=== PATIENT | female | born 1955 | race Caucasian/White ===

== ENCOUNTER → 2016-12-25 | Outpatient (CLI) | payer MEDICARE ==
--- NOTE | 2016-12-25 15:13 | CT ---
EXAMINATION TYPE: CT brain wo con DATE OF EXAM: 12/25/2016 COMPARISON: Previous study dated 10/26/2011. HISTORY: Pt states of confusion and dizziness after fall with head injury x2 days ago. CT DLP: 1017.3 mGycm Automated exposure control for dose reduction was used. FINDINGS: Central structures are midline. There is no evidence of hydrocephalus. No acute focal lesion, mass ef fect or midline shift is seen. I do not see evidence of intracranial blood. Visualized portions of the paranasal sinuses and mastoids are clear. No depressed skull fracture is s een. IMPRESSION: NO ACUTE INTRACRANIAL ABNORMALITY.
== END | disposition home or self-care (01) ==
LOC: RADCTMAIN 14:48
PROVIDERS: ATTEND Family Medicine
DX: S06.0X0A Concussion without loss of consciousness, initial encounter (principal)
CPT/HCPCS: 70450

== ENCOUNTER 2017-01-21 15:25 | Inpatient (IN) | payer BC, MEDICARE ==
[2017-01-21] MEDS ORDERED: SODIUM CHLORIDE 0.9% 1,000 ML IV STA (16:28)
[2017-01-21] MEDS ORDERED: SODIUM CHLORIDE 0.9% 500 ML IV STA (16:28)
--- NOTE | 2017-01-21 16:36 | ED ---
General Adult HPI - General Chief complaint: Dizziness Stated complaint: Weakness. Sent by Dr Nguyen Seen by Provider: 01/21/17 16:27 Source: patient, RN notes reviewed, old records reviewed Mode of arrival: wheelchair Limitations: no limitations - History of Present Illness Initial comments: This is a 61-year-old female EF multiple nonspecific complaints. Multiple episodes of syncope, amnesia, not acting appropriately. Weakness. Chills, sweats. Patient has multiple medical issues, no recent medication changes. Patient has been evaluated including brain CT secondary to a fall earlier last week. Patient symptoms are persistent. She states symptoms for about 2 weeks. She does have multiple medical issues again, states sometimes she does have occult infections, but has denied any fever at home. No bowel or bladder issues. No nausea vomiting. No bowel pain or chest pain. No shortness of breath - Related Data Home Medications Medication Instructions Recorded Confirmed Fluticasone/Salmeterol [Advair 1 puff INHALATION RT-BID 02/14/14 01/21/17 250-50 Diskus] Gabapentin [Neurontin] 300 mg PO QID 02/14/14 01/21/17 Lovastatin [Mevacor] 20 mg PO DAILY 02/14/14 01/21/17 Temazepam [Restoril] 30 mg PO HS 02/14/14 01/21/17 Topiramate [Topamax] 50 mg PO BID 02/14/14 01/21/17 fentaNYL 100MCG/HR PATCH 1 applic TRANSDERM Q72H 02/14/14 01/21/17 [Duragesic 100MCG/HR] rOPINIRole HCL [Requip] 1 mg PO HS 02/14/14 01/21/17 traMADol HCl [Ultram] 100 mg PO TID 02/14/14 01/21/17 traZODone HCL [traZODone] 150 mg PO HS 02/14/14 01/21/17 Albuterol Nebulized [Ventolin 2.5 mg INHALATION RT-QID PRN 10/26/15 01/21/17 Nebulized] Ipratropium Nebulized [Atrovent 0.5 mg INHALATION RT-QID PRN 10/26/15 01/21/17 Nebulized] Thyroid,Pork [Nature-Throid] 195 mg PO DAILY 10/26/15 01/21/17 Diclofenac Sodium [Voltaren] 75 mg PO BID 11/05/15 01/21/17 predniSONE [Prednisone] 5 mg PO DAILY 11/05/15 01/21/17 Levothyroxine Sodium [Synthroid] 200 mcg PO DAILY 02/08/16 01/21/17 Alendronate Sodium [Fosamax] 70 mg PO WE 01/21/17 01/21/17 Baclofen 10 mg PO QID PRN 01/21/17 01/21/17 Docusate [Colace] 100 mg PO DAILY 01/21/17 01/21/17 Doxepin HCl [SINEquan] 100 mg PO DAILY 01/21/17 01/21/17 EPINEPHrine [Epipen 2-Bert] 0.3 mg IM ONCE PRN 01/21/17 01/21/17 Furosemide [Lasix] 40 mg PO DAILY 01/21/17 01/21/17 Hydrocortisone [Cortef] 2.5 mg PO HS 01/21/17 01/21/17 Hydrocortisone [Cortef] 7.5 mg PO QAM 01/21/17 01/21/17 Lidocaine 5% Oint [Xylocaine 5% 1 applic TOPICAL QID PRN 01/21/17 01/21/17 Oint] Linaclotide [Linzess] 72 mcg PO DAILY 01/21/17 01/21/17 Meclizine [Antivert] 12.5 mg PO BID 01/21/17 01/21/17 Mirtazapine [Remeron] 30 mg PO HS 01/21/17 01/21/17 Montelukast [Singulair] 10 mg PO HS 01/21/17 01/21/17 Mupirocin 2% Oint [Bactroban 2% 1 applic TOPICAL TID 01/21/17 01/21/17 Oint] Omeprazole 40 mg PO DAILY 01/21/17 01/21/17 Ondansetron [Zofran ODT] 8 mg PO Q8HR PRN 01/21/17 01/21/17 Sucralfate [Carafate] 1 gm PO ACHS 01/21/17 01/21/17 Thyroid,Pork [[place] Thyroid] 30 mg PO DAILY 01/21/17 01/21/17 Thyroid,Pork [[place] Thyroid] 120 mg PO DAILY 01/21/17 01/21/17 Verapamil HCl [Verapamil ER] 180 mg PO Q12H 01/21/17 01/21/17 valACYclovir HCL [Valtrex] 1,000 mg PO TID 01/21/17 01/21/17 Allergies Allergy/AdvReac Type Severity Reaction Status Date / Time aspirin Allergy Rash/Hives Verified 01/21/17 16:20 bee pollen Allergy Anaphylaxis Verified 01/21/17 16:20 cefdinir [From Omnicef] Allergy Anaphylaxis Verified 01/21/17 16:20 clarithromycin [From Biaxin] Allergy Anaphylaxis Verified 01/21/17 16:20 ibuprofen [From Advil] Allergy Anaphylaxis Verified 01/21/17 16:20 Iodinated Contrast Media - Allergy SWELLING Verified 01/21/17 16:20 Oral and OF THROAT [Iodinated Contrast Media - IV Dye] omalizumab [From Xolair] Allergy Anaphylaxis Verified 01/21/17 16:20 Penicillins Allergy Dyspnea Verified 01/21/17 16:20 prochlorperazine edisylate Allergy Rash/Hives Verified 01/21/17 16:20 [From Compazine] prochlorperazine maleate Allergy Rash/Hives Verified 01/21/17 16:20 [From Compazine] codeine AdvReac Nausea Verified 01/21/17 16:20 iodine AdvReac Anaphylaxis Verified 01/21/17 16:20 shellfish derived AdvReac Anaphylaxis Verified 01/21/17 16:20 Review of Systems ROS Statement: Those systems with pertinent positive or pertinent negative responses have been documented in the HPI. ROS Other: All systems not noted in ROS Statement are negative. 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, adrenal insufficiency, hiatal hernia, basal cell carcinoma of the skin, uses cane , uses oxygen continous at 3L, irregular bowel movements, hx endocarditis,osteoporosis, hx fx spine agammaglobulinemia History of Any Multi-Drug Resistant Organisms: None Reported Past Surgical History: Adenoidectomy, Appendectomy, Back Surgery, Breast Surgery , Cholecystectomy, Hysterectomy, Joint Replacement, Tonsillectomy Additional Past Surgical History / Comment(s): left knee replacement, left knee arthroscopy, breast biopsy-rt, mino breast reduction, hemorrhoidectomy Past Anesthesia/Blood Transfusion Reactions: Family History of Problems w/ Anesthesia, Motion Sickness Additional Past Anesthesia/Blood Transfusion Reaction / Comment(s): "brother was awake during whole surgery" Past Psychological History: No Psychological Hx Reported Smoking Status: Never smoker Past Alcohol Use History: None Reported Past Drug Use History: None Reported - Past Family History Mother Family Medical History: Cancer Father Family Medical History: Cancer General Exam Limitations: no limitations General appearance: alert, in no apparent distress Head exam: Present: atraumatic, normocephalic, normal inspection Eye exam: Present: normal appearance, PERRL, EOMI. Absent: scleral icterus, conjunctival injection, periorbital swelling ENT exam: Present: normal exam, mucous membranes moist Neck exam: Present: normal inspection. Absent: tenderness, meningismus, lymphadenopathy Respiratory exam: Present: normal lung sounds bilaterally. Absent: respiratory distress, wheezes, rales, rhonchi, stridor Cardiovascular Exam: Present: regular rate, normal rhythm, normal heart sounds. Absent: systolic murmur, diastolic murmur, rubs, gallop, clicks GI/Abdominal exam: Present: soft, normal bowel sounds. Absent: distended, tenderness, guarding, rebound, rigid Extremities exam: Present: normal inspection, full ROM, normal capillary refill. Absent: tenderness, pedal edema, joint swelling, calf tenderness Back exam: Present: normal inspection Neurological exam: Present: alert, oriented X3, CN II-XII intact Psychiatric exam: Present: normal affect, normal mood Skin exam: Present: warm, dry, intact, normal color. Absent: rash Course Vital Signs 01/21/17 01/21/17 01/21/17 15:29 17:23 18:28 Temperature 96.9 F L Pulse Rate 63 55 L 55 L Respiratory 18 17 17 Rate Blood Pressure 119/79 120/77 102/69 O2 Sat by Pulse 96 96 97 Oximetry 01/21/17 18:51 Temperature Pulse Rate 58 L Respiratory 17 Rate Blood Pressure 107/64 O2 Sat by Pulse 97 Oximetry - Reevaluation(s) Reevaluation #1: 01/21/17 19:10 Patient states she still feels weak, CT reviewed from outpatient which was negative EKG Findings - EKG Comments: EKG Findings:: EKG shows sinus bradycardia rate of 36, GA 182, QRS 100, QTC 424 Medical Decision Making - Medical Decision Making 61 female here with multiple episodes of syncope, weakness, fever and chills. Diaphoresis, patient with positive urinary tract infection we'll await blood cultures we'll start IV antibiotics limit for rehydration and further evaluation - Lab Data Result diagrams: 01/21/17 16:05 01/21/17 16:05 Lab Results 01/21/17 01/21/17 01/21/17 Range/Units 16:05 16:05 16:05 WBC 5.0 (3.8-10.6) k/uL RBC 4.22 (3.80-5.40) m/uL Hgb 13.5 (11.4-16.0) gm/dL Hct 39.8 (34.0-46.0) % MCV 94.4 (80.0-100.0) fL MCH 32.1 (25.0-35.0) pg MCHC 34.0 (31.0-37.0) g/dL RDW 16.4 H (11.5-15.5) % Plt Count 165 (150-450) k/uL Neutrophils % 55 % Lymphocytes % 35 % Monocytes % 5 % Eosinophils % 2 % Basophils % 1 % Neutrophils # 2.8 (1.3-7.7) k/uL Lymphocytes # 1.8 (1.0-4.8) k/uL Monocytes # 0.3 (0-1.0) k/uL Eosinophils # 0.1 (0-0.7) k/uL Basophils # 0.0 (0-0.2) k/uL Anisocytosis Slight PT (9.0-12.0) sec INR (<1.1) APTT (22.0-30.0) sec Sodium 144 (137-145) mmol/L Potassium 4.2 (3.5-5.1) mmol/L Chloride 104 (98-107) mmol/L Carbon Dioxide 29 (22-30) mmol/L Anion Gap 11 mmol/L BUN 13 (7-17) mg/dL Creatinine 0.91 (0.52-1.04) mg/dL Est GFR (MDRD) Af Amer >60 (>60 ml/min/1.73 sqM) Est GFR (MDRD) Non-Af >60 (>60 ml/min/1.73 sqM) Glucose 89 (74-99) mg/dL Plasma Lactic Acid Carlos (0.7-2.0) mmol/L Calcium 9.1 (8.4-10.2) mg/dL Phosphorus 3.1 (2.5-4.5) mg/dL Magnesium 2.3 (1.6-2.3) mg/dL Total Bilirubin 0.7 (0.2-1.3) mg/dL AST 54 H (14-36) U/L ALT 48 (9-52) U/L Alkaline Phosphatase 97 (38-126) U/L Total Creatine Kinase 244 H (30-135) U/L CK-MB (CK-2) 3.0 H* (0.0-2.4) ng/mL CK-MB (CK-2) Rel Index 1.2 Troponin I <0.012 (0.000-0.034) ng/mL Total Protein 8.1 (6.3-8.2) g/dL Albumin 4.5 (3.5-5.0) g/dL Urine Color Urine Appearance (Clear) Urine pH (5.0-8.0) Ur Specific [place] (1.001-1.035) Urine Protein (Negative) Urine Glucose (UA) (Negative) Urine Ketones (Negative) Urine Blood (Negative) Urine Nitrite (Negative) Urine Bilirubin (Negative) Urine Urobilinogen (<2.0) mg/dL Ur Leukocyte Esterase (Negative) Urine RBC (0-5) /hpf Urine WBC (0-5) /hpf Ur Squamous Epith Cells (0-4) /hpf Amorphous Sediment (None) /hpf Urine Bacteria (None) /hpf Urine Mucus (None) /hpf 01/21/17 01/21/17 01/21/17 Range/Units 16:05 17:07 17:15 WBC (3.8-10.6) k/uL RBC (3.80-5.40) m/uL Hgb (11.4-16.0) gm/dL Hct (34.0-46.0) % MCV (80.0-100.0) fL MCH (25.0-35.0) pg MCHC (31.0-37.0) g/dL RDW (11.5-15.5) % Plt Count (150-450) k/uL Neutrophils % % Lymphocytes % % Monocytes % % Eosinophils % % Basophils % % Neutrophils # (1.3-7.7) k/uL Lymphocytes # (1.0-4.8) k/uL Monocytes # (0-1.0) k/uL Eosinophils # (0-0.7) k/uL Basophils # (0-0.2) k/uL Anisocytosis PT 10.8 (9.0-12.0) sec INR 1.1 (<1.1) APTT 23.9 (22.0-30.0) sec Sodium (137-145) mmol/L Potassium (3.5-5.1) mmol/L Chloride (98-107) mmol/L Carbon Dioxide (22-30) mmol/L Anion Gap mmol/L BUN (7-17) mg/dL Creatinine (0.52-1.04) mg/dL Est GFR (MDRD) Af Amer (>60 ml/min/1.73 sqM) Est GFR (MDRD) Non-Af (>60 ml/min/1.73 sqM) Glucose (74-99) mg/dL Plasma Lactic Acid Carlos 0.8 (0.7-2.0) mmol/L Calcium (8.4-10.2) mg/dL Phosphorus (2.5-4.5) mg/dL Magnesium (1.6-2.3) mg/dL Total Bilirubin (0.2-1.3) mg/dL AST (14-36) U/L ALT (9-52) U/L Alkaline Phosphatase (38-126) U/L Total Creatine Kinase (30-135) U/L CK-MB (CK-2) (0.0-2.4) ng/mL CK-MB (CK-2) Rel Index Troponin I (0.000-0.034) ng/mL Total Protein (6.3-8.2) g/dL Albumin (3.5-5.0) g/dL Urine Color Yellow Urine Appearance Cloudy H (Clear) Urine pH 8.0 (5.0-8.0) Ur Specific [place] 1.018 (1.001-1.035) Urine Protein Trace H (Negative) Urine Glucose (UA) Negative (Negative) Urine Ketones Negative (Negative) Urine Blood Negative (Negative) Urine Nitrite Negative (Negative) Urine Bilirubin Negative (Negative) Urine Urobilinogen 2.0 (<2.0) mg/dL Ur Leukocyte Esterase Moderate H (Negative) Urine RBC 3 (0-5) /hpf Urine WBC 32 H (0-5) /hpf Ur Squamous Epith Cells 1 (0-4) /hpf Amorphous Sediment Occasional H (None) /hpf Urine Bacteria Moderate H (None) /hpf Urine Mucus Rare H (None) /hpf Disposition Clinical Impression: Dehydration, Weakness, Syncope, UTI (urinary tract infection) Disposition: ADMITTED IP TO THIS HOSP Condition: Fair Referrals: Maikel Johnson MD [Primary Care Provider] - 1-2 days
[2017-01-21 16:44] LABS: Anisocytosis Slight; Basophils % (A) 1 %; CH 31.9; CHCM 34.1; Eosinophils # (A) 0.1 k/uL (0-0.7); Eosinophils % (A) 2 %; HCT 39.8 % (34.0-46.0); HDW 3.04; HGB 13.5 gm/dL (11.4-16.0); Luc % (Auto) 2; Lymphocytes # (A) 1.8 k/uL (1.0-4.8); Lymphocytes % (A) 35 %; MCH 32.1 pg (25.0-35.0); MCV 94.4 fL (80.0-100.0); Mean Platelet Volume 7.9; Monocytes # (A) 0.3 k/uL (0-1.0); Monocytes % (A) 5 %; Neutrophils # (A) 2.8 k/uL (1.3-7.7); Neutrophils % (A) 55 %; RBC 4.22 m/uL (3.80-5.40); RDW 16.4 % (11.5-15.5); WBC (Perox) 4.72
[2017-01-21 16:53] LABS: ALT 48 U/L (9-52); AST 54 U/L (14-36); Alkaline Phosphatase 97 U/L (38-126); Anion Gap 11 mmol/L; Blood Urea Nitrogen 13 mg/dL (7-17); Calcium 9.1 mg/dL (8.4-10.2); Carbon Dioxide 29 mmol/L (22-30); Chloride 104 mmol/L (98-107); Glucose 89 mg/dL (74-99); Magnesium 2.3 mg/dL (1.6-2.3); Non-African American GFR(MDRD) >60 (>60 ml/min/1.73 sqM); Phosphorous 3.1 mg/dL (2.5-4.5); Potassium 4.2 mmol/L (3.5-5.1); Sodium 144 mmol/L (137-145); Total Bilirubin 0.7 mg/dL (0.2-1.3); Total Protein 8.1 g/dL (6.3-8.2)
[2017-01-21 16:58] LABS: INR 1.1 (<1.1)
[2017-01-21 16:59] LABS: Partial Thromboplastin Time 23.9 sec (22.0-30.0); Prothrombin Time 10.8 sec (9.0-12.0)
[2017-01-21 17:05] LABS: Creatine Kinase 244 U/L (30-135)
--- NOTE | 2017-01-21 17:06 | XR ---
EXAMINATION TYPE: XR chest 2V DATE OF EXAM: 01/21/2017 COMPARISON: 11/14/2015 HISTORY: Chest pain TECHNIQUE: Frontal and lateral views of the chest are obtained. FINDINGS: There is poor inspiration with elevation of the diaphragms and blunting of costophrenic an gles. There is no gross heart failure. There are chest leads. IMPRESSION: There is significant elevation of the diaphragms consistent with atelectasis and small p leural effusion that is improved compared to last exam.
[2017-01-21 17:16] LABS: Troponin I <0.012 ng/mL (0.000-0.034)
[2017-01-21 17:43] LABS: Amorphous Sediment,Urine Occasional /hpf; Appearance,Urine Cloudy (Clear); Bacteria,Urine Moderate /hpf; Bilirubin,Urine Negative (Negative); Glucose,Urine (UA) Negative (Negative); Ketones,Urine Negative (Negative); Leukocyte Esterase,Urine Moderate (Negative); Mucus,Urine Rare /hpf; Nitrite,Urine Negative (Negative); Particle Count 7650; Protein,Urine Trace (Negative); RBC,Urine 3 /hpf (0-5); Specific Gravity,Urine 1.018 (1.001-1.035); Squamous Epithelial Cell,Urine 1 /hpf (0-4); UA Billing (MACRO vs. MICRO) MICRO; WBC,Urine 32 /hpf (0-5)
[2017-01-21] MEDS ORDERED: LEVOFLOXACIN 750MG-D5W PMX 750 MG in DEXTROSE/WATER 1 150ML.BAG IVPB STA (18:03)
[2017-01-21] MEDS ORDERED: traMADol 50 MG TAB PO STA ×2 (18:50→18:59)
[2017-01-21 20:45] VITALS: RESP 16
[2017-01-21] MEDS ORDERED: TEMAZEPAM 30 MG CAP PO SCH (22:45)
[2017-01-22 04:28] LABS: Anisocytosis Slight; Basophils % (A) 1 %; CH 31.7; CHCM 33.1; Eosinophils # (A) 0.1 k/uL (0-0.7); Eosinophils % (A) 2 %; HCT 32.9 % (34.0-46.0); HDW 2.98; HGB 10.9 gm/dL (11.4-16.0); Luc # (Auto) 0.12; Luc % (Auto) 3; Lymphocytes # (A) 1.6 k/uL (1.0-4.8); Lymphocytes % (A) 41 %; MCH 31.9 pg (25.0-35.0); MCHC 33.1 g/dL (31.0-37.0); MCV 96.5 fL (80.0-100.0); Mean Platelet Volume 8.2; Monocytes # (A) 0.2 k/uL (0-1.0); Monocytes % (A) 5 %; Neutrophils # (A) 1.9 k/uL (1.3-7.7); Neutrophils % (A) 49 %; RBC 3.41 m/uL (3.80-5.40); RDW 16.1 % (11.5-15.5); WBC 3.9 k/uL (3.8-10.6); WBC (Perox) 4.03
[2017-01-22 04:50] LABS: ALT 41 U/L (9-52); AST 39 U/L (14-36); Alkaline Phosphatase 72 U/L (38-126); Anion Gap 7 mmol/L; Blood Urea Nitrogen 11 mg/dL (7-17); Calcium 8.1 mg/dL (8.4-10.2); Carbon Dioxide 25 mmol/L (22-30); Chloride 109 mmol/L (98-107); Glucose 73 mg/dL (74-99); Magnesium 2.2 mg/dL (1.6-2.3); Non-African American GFR(MDRD) >60 (>60 ml/min/1.73 sqM); Phosphorous 3.1 mg/dL (2.5-4.5); Potassium 3.7 mmol/L (3.5-5.1); Sodium 141 mmol/L (137-145); Total Bilirubin 0.4 mg/dL (0.2-1.3); Total Protein 6.1 g/dL (6.3-8.2)
[2017-01-22] MEDS: traMADol 50 MG TAB PO PRN ×2 (05:24→11:33)
[2017-01-22 07:57] VITALS: BP 105/66; PULSE 55; TEMP 97.7
[2017-01-22] MEDS ORDERED: ENOXAPARIN 40 MG/0.4 ML SYRINGE SQ SCH (09:00)
[2017-01-22] MEDS ORDERED: LEVOFLOXACIN 750MG-D5W PMX 750 MG in DEXTROSE/WATER 1 150ML.BAG IVPB SCH (18:00)
--- NOTE | 2017-01-25 09:27 | HP ---
HISTORY AND PHYSICAL/DISCHARGE SUMMARY: This dictation is both H&P and discharge summary The patient is a 69 year old female came in with complaints of fever, chills and night sweats and generalized weakness all of which is completely resolved at this time after she was started on ( ). The patient denied any dysuria. The patient denied any increased urinary frequency. Her urine did look abnormal with increased WBC count positive for leukocyte esterase. The patient was empirically treated for urinary tract infection although I do not know that the patient has UTI. I cannot say the patient does not have UTI and the patient symptoms did improve with Levofloxacin because of which I am discharging her on Levofloxacin. Unfortunately the patient has borderline increased QT in spite of which I do not have any other choice because the patient appears to be allergic to Cephalosporin as it is only borderline increase in QT I will go ahead and discharge her on five days of Levofloxacin. The patient apparently had syncopal episode many days ago after which the patient remained asymptomatic. The patient was on Verapamil for migraine control 180 mg twice a day and the patient's blood pressure is on the low normal side. The patient's blood pressure is always like that per the patient. The patient is also on Lasix without any dehydration, does take 40 mg of Lasix for peripheral edema. I recommended her a couple of changes. I asked her to take the Lasix on alternative days only for symptomatic peripheral edema and regarding the patient does have some mild sinus bradycardia which may have contributed to her syncopal episode as it is many days ago. The patient is symptom free, that episode, I will go ahead and discharge the patient. The patient can get an outpatient echocardiogram. We will also decrease the verapamil to 120 twice a day and the patient's migraine recurrence occurred years ago because of which I will go ahead and cut down the dose of Verapamil and see how she does. The patient will be discharged with empiric antibiotics of Levofloxacin for five days as the patient has symptomatic improvement. Although I do not have concrete evidence that the patient has urinary tract infection. Home medications include: 1. Fluticasone. 2. Gabapentin. 3. Lovastatin. 4. Temazepam. 5. Topamax. 6. Fentanyl patch. 7. Ropinirole. 8. Tramadol. 9. Trazodone. 10. Albuterol. 11. Ipratropium. 12. [place] thyroid. 13. Diclofenac. 14. The patient was instructed that she cannot take two NSAIDs at the same time. 15. Prednisone. 16. Levothyroxine. 17. Olendranate. I obtained a TSH. The patient appears to have some hypopituitarism or multiple ( ) I am not sure what ( ). Although the patient is on supplementation with hydrocortisone, levothyroxine. The patient is on Baclofen, Olendranate, Lidocaine, Linzess, Meclizine, Mirtazapine, Montelukast, ( ), Omeprazole, Ondansetron, ( ), Verapamil, Valacyclovir. The patient is on multiple complex medications. 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 SOCIAL HISTORY: Denied any smoking, alcohol abuse or any drug abuse. FAMILY HISTORY: Significant for mother with cancer, father with cancer. PHYSICAL EXAMINATION: Temperature 96.9, pulse 65, respiratory 17, blood pressure 102/69. Saturation at 95% on room air. ( ). The patient is afebrile. LABORATORY DATA: CBC, BMP are abnormal for low hemoglobin of 10.9 without any acute GI bleed. The patient's hemoglobin dropped from 13.5 because of ( ) effect. I will obtain a TSH and free T4. May not be available before discharge. ASSESSMENT AND PLAN: 1. Nonspecific symptoms of chills without any obvious fever, possibility of urinary tract infection. The patient will be discharged on five days empiric therapy. The patient urinalysis is not significant. Occasional squamous epithelial cells. 2. Panhypopituitarism. We will obtain TSH level. The patient is on high doses of levothyroxine. Depending on TSH and T4, we may need to up or down titrate her levothyroxine or [place] thyroid. The patient is on huge doses which is apparently concerning. 3. Panhypopituitarism. Home medications will be continued. 4. Restless leg syndrome and fibromyalgia, continue her home medications. The patient cannot take two NSAIDs counselling of which was provided to the patient. 5. Irritable bowel syndrome, continue with Linzess. 6. Hyperlipidemia, continue with Lovastatin. 7. Migraine, episode of syncope and hypotension issues, titration of medication that is Lasix and Verapamil as mentioned above. The patient has poly pharmacy which is concerning although as I do not know the patient very well, I am not changing any of her medications at this point in time. The patient will be asked to follow with Dr. Maikel Johnson as an outpatient. The patient's Levothyroxine may need to be titrated depending on the TSH which is not available at the time of discharge. This dictation is both H&P and discharge summary. MTDD
== END 2017-01-22 12:30 | disposition home or self-care (01) | DRG 690 ==
LOC: EC 15:25 → 5MS5E 19:08
PROVIDERS: ADMIT Hospitalist; ATTEND Hospitalist
DX: N39.0 Urinary tract infection, site not specified (principal); E23.0 Hypopituitarism; E86.0 Dehydration; G25.81 Restless legs syndrome; K58.9 Irritable bowel syndrome, unspecified; E78.5 Hyperlipidemia, unspecified; G43.909 Migraine, unspecified, not intractable, without status migrainosus; M79.7 Fibromyalgia; J44.9 Chronic obstructive pulmonary disease, unspecified; K44.9 Diaphragmatic hernia without obstruction or gangrene; K21.9 Gastro-esophageal reflux disease without esophagitis; G47.30 Sleep apnea, unspecified; Z90.49 Acquired absence of other specified parts of digestive tract; Z85.828 Personal history of other malignant neoplasm of skin; Z96.652 Presence of left artificial knee joint; Z79.52 Long term (current) use of systemic steroids; Z79.899 Other long term (current) drug therapy; Z88.8 Allergy status to other drugs, medicaments and biological substances; Z88.6 Allergy status to analgesic agent; Z88.1 Allergy status to other antibiotic agents; Z91.030 Bee allergy status; Z91.041 Radiographic dye allergy status; Z88.5 Allergy status to narcotic agent; Z88.0 Allergy status to penicillin; Z91.013 Allergy to seafood
CPT/HCPCS: 36415; 71020; 80053; 81001; 82550; 82553; 83605; 83735; 84100; 84439; 84443; 84484; 85025; 85610; 85730; 87040; 87086; 93005; 96361; 96365; 96366; 99285

== ENCOUNTER → 2017-07-14 | Outpatient (CLI) | payer MEDICARE ==
--- NOTE | 2017-07-14 13:21 | US ---
EXAMINATION TYPE: US venous doppler duplex LE RT DATE OF EXAM: 07/14/2017 12:40 PM COMPARISON: NONE CLINICAL HISTORY: R79.1 D Dimer above reference range. SIDE PERFORMED: right TECHNIQUE: The lower extremity deep venous system is examined utilizing real time linear array sonog germain with graded compression, doppler sonography and color-flow sonography. VESSELS IMAGED: External Iliac Vein (EIV) Common Femoral Vein Deep Femoral Vein Greater Saphenous Vein * Femoral Vein Popliteal Vein Small Saphenous Vein * Proximal Calf Veins (* superficial vessels) Grayscale, color doppler, spectral doppler imaging performed of the deep veins of the lower extremity . There is normal flow, compressibility, vascular waveforms. IMPRESSION: Right Leg: Negative for DVT
== END | disposition home or self-care (01) ==
LOC: RADUSWWP 12:06
PROVIDERS: ATTEND Family Medicine
DX: R79.1 Abnormal coagulation profile (principal)

== ENCOUNTER → 2018-02-05 | Outpatient (CLI) | payer BC ==
--- NOTE | 2018-02-05 16:11 | XR ---
EXAMINATION TYPE: XR lumbar spine 2 or 3V , 3 VIEWS DATE OF EXAM ORDERED: 02/05/2018 HISTORY: M54.5 low back pain. COMPARISON: Previous study dated 04/17/2007. FINDINGS: There has been a trans facet fusion on the right and L5-S1. There has been a previous vert ebroplasty at T12. The gallbladder is been removed. There has been a laminectomy at L4 and L5. There is a stable grade 2 spondylolisthesis of L5 5 ON S1. There is a degenerative grade 1 spondyloli sthesis of L4 and L5. This is progressed from previous. Alignment is otherwise maintained. The pedicl es are intact. IMPRESSION: 1. EXTENSIVE POSTSURGICAL CHANGE. 2. PROGRESSION OF A GRADE 1 SPONDYLOLISTHESIS OF L4 ON L5.
--- NOTE | 2018-02-05 16:12 | XR ---
EXAMINATION TYPE: XR sacrum coccyx , 3 VIEWS DATE OF EXAM ORDERED: 02/05/2018 HISTORY: M54.5 low back pain. COMPARISON: Previous study dated 05/31/2011. FINDINGS: There has been a previous trans facet fusion at L5-S1. No acute fracture or dislocation is seen. There are numerous phleboliths within the pelvis. IMPRESSION: NO ACUTE OSSEOUS LESION.
== END | disposition home or self-care (01) ==
LOC: RADXRMAIN 15:17
PROVIDERS: ATTEND Nurse Practitioner Adult Health
DX: M43.16 Spondylolisthesis, lumbar region (principal); Z98.890 Other specified postprocedural states
CPT/HCPCS: 72100; 72220

== ENCOUNTER → 2018-04-27 | Outpatient (CLI) | payer BC | END | disposition home or self-care (01) | LOC: LABWHC1 14:02 | PROVIDERS: ATTEND Allergy & Immunology | DX: D84.9 Immunodeficiency, unspecified (principal) | CPT/HCPCS: 36415; 82784 ==

== ENCOUNTER → 2018-06-16 | Outpatient (CLI) | payer BC ==
--- NOTE | 2018-06-16 13:05 | US ---
EXAMINATION TYPE: US abdomen limited DATE OF EXAM: 06/16/2018 COMPARISON: NONE CLINICAL HISTORY: 63-year-old female I73.9 Peripheral vascu dz,R94.5 Abn liver function. Abdominal pa in with abnormal labs TECHNIQUE: Multiple sonographic images of the right upper quadrant are obtained. FINDINGS: EXAM MEASUREMENTS: Liver Length: 15.5 cm Right Kidney: 7.9 x 4.6 x 4.7 cm Die Out Worker notes:Limited exam due to overlying bowel gas Pancreas: Only a small portion of the pancreatic neck and body are seen. Remainder suboptimally visua lized due to shadowing from bowel gas. Liver: Only small portions are visualized due to combination of bowel gas and rib shadowing. Gallbladder: Obscured by overlying bowel gas Evidence for sonographic Meyers's sign: neg CBD: Obscured by overlying bowel gas Right Kidney: Limited visualization due to overlying bowel gas . No obvious hydronephrosis. IMPRESSION: Very limited exam primarily due to extensive bowel gas shadowing. Gallbladder and bile duct are obscu red. Only small portions of the liver are visualized.
== END ==
LOC: RADUSWWP 08:30
PROVIDERS: ATTEND Family Medicine
DX: R94.5 Abnormal results of liver function studies (principal); I73.9 Peripheral vascular disease, unspecified
CPT/HCPCS: 76705; 93923

== ENCOUNTER → 2018-12-09 | Outpatient (CLI) | payer BC ==
--- NOTE | 2018-12-09 15:07 | CT ---
EXAMINATION TYPE: CT brain wo con DATE OF EXAM: 12/09/2018 COMPARISON: 12/25/2016 HISTORY: 63-year-old female Tremors, dizziness and syncopal episodes TECHNIQUE: Examination was done in axial plane without intravenous contrast. Coronal and sagittal r econstructions performed. CT DLP: 1085.4 mGycm Automated exposure control for dose reduction was used. FINDINGS: There is no evidence of acute intracranial hemorrhage, acute ischemic changes, mass, mass-effect, or extra-axial fluid collection. There is no effacement of cerebral sulci or basal subarachnoid cister ns. There is no hydrocephalus. There is no midline shift. Martins-white matter distinction is preserv ed. Partially empty sella. Scattered trace to mild mucosal thickening left maxillary sinus and ethmoid air cells. Mastoid air ce lls well pneumatized. Orbits and globes are intact. IMPRESSION: No acute intracranial abnormality seen.
== END | disposition home or self-care (01) ==
LOC: RADCTMAIN 13:15
PROVIDERS: ATTEND Nurse Practitioner Adult Health
DX: G25.2 Other specified forms of tremor (principal)
CPT/HCPCS: 70450

== ENCOUNTER → 2018-12-30 | Outpatient (CLI) | payer BC ==
--- NOTE | 2018-12-31 15:06 | MM ---
Reason for exam: screening (asymptomatic). Last mammogram was performed 3 years and 6 months ago. History: Patient is postmenopausal, has history of breast cancer at age 25, and history of other cancer. Family history of breast cancer in mother at age 66 and breast cancer in maternal grandmother. Reduction of the left breast. Reduction of the right breast. Excisional biopsy of the left breast. Excisional biopsy of the right breast. Lumpectomy of the right breast. Took estrogen for 6 months beginning at age 25. Took progesterone for 6 months beginning at age 25. Physical Findings: A clinical breast exam by your physician is recommended on an annual basis and results should be correlated with mammographic findings. MG 3D Screening Mammo W/Cad Bilateral CC and MLO view(s) were taken. Prior study comparison: July 13, 2015, bilateral MG screening mammo w CAD. February 09, 2012, CAD bilateral diagnostic mammogram. There are scattered fibroglandular densities. Benign appearing bilateral calcifications. No suspicious abnormality. Post surgical change bilaterally. No significant changes when compared with prior studies. ASSESSMENT: Benign, BI-RAD 2 RECOMMENDATION: Routine screening mammogram of both breasts in 1 year.
== END | disposition home or self-care (01) ==
LOC: RADMAMWWP 13:25
PROVIDERS: ATTEND Family Medicine
DX: Z12.31 Encounter for screening mammogram for malignant neoplasm of breast (principal)
CPT/HCPCS: 77063; 77067

== ENCOUNTER 2019-02-23 11:58 | Observation (INO) | payer BC ==
[2019-02-23] MEDS ORDERED: SODIUM CHLORIDE 0.9% 500 ML 500 ML IV STA (12:26)
[2019-02-23 13:13] LABS: Anisocytosis Slight; Basophils # (A) 0.1 k/uL (0-0.2); Basophils % (A) 1 %; Eosinophils # (A) 0.3 k/uL (0-0.7); Eosinophils % (A) 3 %; HCT 37.9 % (34.0-46.0); HGB 12.5 gm/dL (11.4-16.0); Lymphocytes # (A) 2.4 k/uL (1.0-4.8); Lymphocytes % (A) 24 %; MCH 31.2 pg (25.0-35.0); MCV 94.5 fL (80.0-100.0); Mean Platelet Volume 8.1; Monocytes # (A) 0.6 k/uL (0-1.0); Monocytes % (A) 6 %; Neutrophils # (A) 6.2 k/uL (1.3-7.7); Neutrophils % (A) 63 %; Platelet Count 156 k/uL (150-450); RBC 4.01 m/uL (3.80-5.40); RDW 16.1 % (11.5-15.5); WBC 9.9 k/uL (3.8-10.6)
[2019-02-23 13:20] LABS: Albumin 4.4 g/dL (3.5-5.0); Calcium 8.7 mg/dL (8.4-10.2); Potassium 4.1 mmol/L (3.5-5.1); Total Bilirubin 0.3 mg/dL (0.2-1.3); Total Protein 7.9 g/dL (6.3-8.2)
--- NOTE | 2019-02-23 13:30 | CT ---
EXAMINATION TYPE: CT brain wo con DATE OF EXAM: 02/23/2019 COMPARISON: 12/09/2018 CT brain HISTORY: Head pain. Poor historian. CT DLP: 1137.4 mGycm Automated exposure control for dose reduction was used. TECHNIQUE: CT scan of the head is performed without contrast. FINDINGS: There is no acute intracranial hemorrhage, mass effect, or midline shift identified. Minimal ventricu lar and sulcal prominence throughout relates to mild degree age-related atrophy. The globes are intac t. Mild mucosal thickening is present of the ethmoid and left maxillary paranasal sinuses. Remaining paranasal sinuses and mastoid air cells are well aerated. Partially empty sella turcica is redemonstr ated. IMPRESSION: No acute intracranial hemorrhage, mass effect, or midline shift is seen. Mild ethmoid and left maxill jazmín paranasal sinus disease as seen on the prior.
--- NOTE | 2019-02-23 14:56 | ED ---
Syncope HPI - General Chief Complaint: Syncope Stated Complaint: Syncope, fall hit head Time Seen by Provider: 02/23/19 12:12 Source: patient Mode of arrival: wheelchair Limitations: no limitations - History of Present Illness Initial Comments: Patient is a 64-year-old female presenting to the emergency room with complaints of syncope x 1 week. Patient states symptoms started after she returned home from a cruise. Patient states she has fallen multiple times, most recently yesterday hitting her head. Patient admits to still having a headache from the fall. Patient states she has been feeling dizzy, on balance, and needing help walking around her house. Patient has multiple comorbidities including COPD on 3L O2, Adrenal insufficiency, thyroid disease, hyperlipidemia, sleep apnea, tremors. Patient denies fever, chills, chest pain, nausea, vomiting, abdominal pain, urinary complaints. Patient is a poor historian. No other complaints at this time. - Related Data Home Medications Medication Instructions Recorded Confirmed Lovastatin [Mevacor] 20 mg PO DAILY 02/14/14 02/23/19 rOPINIRole HCL [Requip] 2 mg PO HS 02/14/14 02/23/19 traMADol HCl [Ultram] 50 mg PO QID 02/14/14 02/23/19 Albuterol Nebulized [Ventolin 2.5 mg INHALATION RT-QID PRN 10/26/15 02/23/19 Nebulized] Diclofenac Sodium [Voltaren] 75 mg PO BID 11/05/15 02/23/19 predniSONE [Prednisone] 5 mg PO DAILY 11/05/15 02/23/19 Baclofen 10 mg PO QID PRN 01/21/17 02/23/19 EPINEPHrine [Epipen 2-Bert] 0.3 mg IM ONCE PRN 01/21/17 02/23/19 Linaclotide [Linzess] 72 mcg PO DAILY 01/21/17 02/23/19 Mirtazapine [Remeron] 30 mg PO HS 01/21/17 02/23/19 Montelukast [Singulair] 10 mg PO HS 01/21/17 02/23/19 Omeprazole 40 mg PO DAILY 01/21/17 02/23/19 Ondansetron [Zofran ODT] 8 mg PO Q8HR PRN 01/21/17 02/23/19 Ammonium Lactate Lotion 1 applic TOPICAL BID 02/23/19 02/23/19 [Lac-Hydrin 12% Lotion] Budesonide-Formot 160-4.5 Mcg 2 puff INHALATION RT-BID 02/23/19 02/23/19 [Symbicort 160-4.5 Mcg Inhaler] Buprenorphine HCl [Belbuca] 150 mcg BUCCAL Q12H 02/23/19 02/23/19 DULoxetine HCL [Cymbalta] 30 mg PO HS 02/23/19 02/23/19 Denosumab [Prolia] 60 mg SQ Q180D 02/23/19 02/23/19 Famotidine [Pepcid] 40 mg PO BID 02/23/19 02/23/19 Furosemide [Lasix] 40 mg PO DAILY 02/23/19 02/23/19 Gabapentin 1,200 mg PO BID 02/23/19 02/23/19 Levothyroxine Sodium [Synthroid] 300 mcg PO DAILY 02/23/19 02/23/19 Propranolol [Inderal] 10 mg PO TID 02/23/19 02/23/19 Topiramate [Topamax] 25 mg PO BID 02/23/19 02/23/19 Topiramate [Topamax] 100 mg PO BID 02/23/19 02/23/19 Allergies Allergy/AdvReac Type Severity Reaction Status Date / Time aspirin Allergy Rash/Hives Verified 02/23/19 13:23 bee pollen Allergy Anaphylaxis Verified 02/23/19 13:23 cefdinir [From Omnicef] Allergy Anaphylaxis Verified 02/23/19 13:23 clarithromycin [From Biaxin] Allergy Anaphylaxis Verified 02/23/19 13:23 ibuprofen [From Advil] Allergy Anaphylaxis Verified 02/23/19 13:23 Iodinated Contrast- Oral and Allergy SWELLING Verified 02/23/19 13:23 IV Dye OF THROAT [Iodinated Contrast Media - IV Dye] iodine Allergy Anaphylaxis Verified 02/23/19 13:23 omalizumab [From Xolair] Allergy Anaphylaxis Verified 02/23/19 13:23 Penicillins Allergy Dyspnea Verified 02/23/19 13:23 prochlorperazine edisylate Allergy Rash/Hives Verified 02/23/19 13:23 [From Compazine] prochlorperazine maleate Allergy Rash/Hives Verified 02/23/19 13:23 [From Compazine] shellfish derived Allergy Anaphylaxis Verified 02/23/19 13:23 codeine AdvReac Nausea Verified 02/23/19 13:23 Review of Systems ROS Statement: Those systems with pertinent positive or pertinent negative responses have been documented in the HPI. ROS Other: All systems not noted in ROS Statement are negative. 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, adrenal insufficiency, hiatal hernia, basal cell carcinoma of the skin, uses cane , uses oxygen continous at 3L, irregular bowel movements, hx endocarditis,osteoporosis, hx fx spine agammaglobulinemia History of Any Multi-Drug Resistant Organisms: None Reported Past Surgical History: Adenoidectomy, Appendectomy, Back Surgery, Breast Surgery, Cholecystectomy, Hysterectomy, Joint Replacement, Tonsillectomy Additional Past Surgical History / Comment(s): left knee replacement, left knee arthroscopy, breast biopsy-rt, mino breast reduction, hemorrhoidectomy Past Anesthesia/Blood Transfusion Reactions: Family History of Problems w/ Anesthesia, Motion Sickness Additional Past Anesthesia/Blood Transfusion Reaction / Comment(s): "brother was awake during whole surgery" Past Psychological History: No Psychological Hx Reported Smoking Status: Never smoker Past Alcohol Use History: None Reported Past Drug Use History: None Reported - Past Family History Mother Family Medical History: Cancer Father Family Medical History: Cancer General Exam - General Exam Comments Initial Comments: GENERAL: Well-appearing, well-nourished and in no acute distress, but appears uncomfortable. HEAD: Atraumatic, normocephalic. Tender to palpation of the posterior right side. EYES: Pupils equal round and reactive to light, extraocular movements intact, sclera anicteric, conjunctiva are normal. ENT: TMs normal, nares patent, oropharynx clear without exudates. Moist mucous membranes. NECK: Normal range of motion, supple without lymphadenopathy or JVD. LUNGS: Breath sounds clear to auscultation bilaterally and equal. Scattered wheezes throughout lung plascencia. HEART: Regular rate and rhythm without murmurs, rubs or gallops. ABDOMEN: Soft, nontender, normoactive bowel sounds. No guarding, no rebound. N o masses appreciated. : Deferred EXTREMITIES: Normal range of motion, no pitting or edema. No clubbing or cyanosis. NEUROLOGICAL: Cranial nerves II through XII grossly intact. Normal speech. Ashley haines has chronic tremors. PSYCH: Normal mood, normal affect. SKIN: Warm, Dry, normal turgor, no rashes or lesions noted. Limitations: no limitations Course Vital Signs 02/23/19 02/23/19 12:01 15:10 Temperature 97.9 F Pulse Rate 65 75 Respiratory 16 22 Rate Blood Pressure 126/81 116/81 O2 Sat by Pulse 92 L 94 L Oximetry Medical Decision Making - Medical Decision Making Patient is a 64-year-old female complaining of syncope and dizziness times one week. Patient states symptoms started after she returned from a cruise. Patient states she took a fall yesterday and hit her head and has been having a headache since. Patient is a poor historian. Patient has multiple medical issues including COPD on 3L O2, Adrenal insufficiency, thyroid disease, h yperlipidemia, sleep apnea, tremors. Patient's exam is within normal limits except for tremors. Patient's CBC is within normal limits. D-dimer is 0.52. Troponin is within normal limits. Patient's BUN/creatinine are slightly elevated. Patient's UA was pending at this time. Case discussed with Dr. Urban who agrees patient to be admitted. Patient was accepted by Dr. Castro. Away from the patient, patient's brother and patient's daughter states patient is constantly requesting pain meds from her PCP and creating reasons to request pain medication. They state she is very dramatic in nature and often changes her demeanor when there is medical personnel present in the room. - Lab Data Result diagrams: 02/23/19 13:00 02/23/19 13:00 Lab Results 02/23/19 02/23/19 02/23/19 Range/Units 13:00 13:00 13:00 WBC 9.9 (3.8-10.6) k/uL RBC 4.01 (3.80-5.40) m/uL Hgb 12.5 (11.4-16.0) gm/dL Hct 37.9 (34.0-46.0) % MCV 94.5 (80.0-100.0) fL MCH 31.2 (25.0-35.0) pg MCHC 33.0 (31.0-37.0) g/dL RDW 16.1 H (11.5-15.5) % Plt Count 156 (150-450) k/uL Neutrophils % 63 % Lymphocytes % 24 % Monocytes % 6 % Eosinophils % 3 % Basophils % 1 % Neutrophils # 6.2 (1.3-7.7) k/uL Lymphocytes # 2.4 (1.0-4.8) k/uL Monocytes # 0.6 (0-1.0) k/uL Eosinophils # 0.3 (0-0.7) k/uL Basophils # 0.1 (0-0.2) k/uL Anisocytosis Slight D-Dimer 0.52 (<0.60) mg/L FEU Sodium 144 (137-145) mmol/L Potassium 4.1 (3.5-5.1) mmol/L Chloride 100 (98-107) mmol/L Carbon Dioxide 36 H (22-30) mmol/L Anion Gap 8 mmol/L BUN 26 H (7-17) mg/dL Creatinine 1.36 H (0.52-1.04) mg/dL Est GFR (CKD-EPI)AfAm 48 (>60 ml/min/1.73 sqM) Est GFR (CKD-EPI)NonAf 41 (>60 ml/min/1.73 sqM) Glucose 119 H (74-99) mg/dL Calcium 8.7 (8.4-10.2) mg/dL Total Bilirubin 0.3 (0.2-1.3) mg/dL AST 53 H (14-36) U/L ALT 41 (9-52) U/L Alkaline Phosphatase 54 (38-126) U/L Troponin I (0.000-0.034) ng/mL Total Protein 7.9 (6.3-8.2) g/dL Albumin 4.4 (3.5-5.0) g/dL Urine Color Urine Appearance (Clear) Urine pH (5.0-8.0) Ur Specific [place] (1.001-1.035) Urine Protein (Negative) Urine Glucose (UA) (Negative) Urine Ketones (Negative) Urine Blood (Negative) Urine Nitrite (Negative) Urine Bilirubin (Negative) Urine Urobilinogen (<2.0) mg/dL Ur Leukocyte Esterase (Negative) Urine RBC (0-5) /hpf Urine WBC (0-5) /hpf Ur Squamous Epith Cells (0-4) /hpf Urine Bacteria (None) /hpf Urine Opiates Screen (NotDetected) Ur Oxycodone Screen (NotDetected) Urine Methadone Screen (NotDetected) Ur Propoxyphene Screen (NotDetected) Ur Barbiturates Screen (NotDetected) U Tricyclic Antidepress (NotDetected) Ur Phencyclidine Scrn (NotDetected) Ur Amphetamines Screen (NotDetected) U Methamphetamines Scrn (NotDetected) U Benzodiazepines Scrn (NotDetected) Urine Cocaine Screen (NotDetected) U Marijuana (THC) Screen (NotDetected) 02/23/19 02/23/19 Range/Units 13:00 16:20 WBC (3.8-10.6) k/uL RBC (3.80-5.40) m/uL Hgb (11.4-16.0) gm/dL Hct (34.0-46.0) % MCV (80.0-100.0) fL MCH (25.0-35.0) pg MCHC (31.0-37.0) g/dL RDW (11.5-15.5) % Plt Count (150-450) k/uL Neutrophils % % Lymphocytes % % Monocytes % % Eosinophils % % Basophils % % Neutrophils # (1.3-7.7) k/uL Lymphocytes # (1.0-4.8) k/uL Monocytes # (0-1.0) k/uL Eosinophils # (0-0.7) k/uL Basophils # (0-0.2) k/uL Anisocytosis D-Dimer (<0.60) mg/L FEU Sodium (137-145) mmol/L Potassium (3.5-5.1) mmol/L Chloride (98-107) mmol/L Carbon Dioxide (22-30) mmol/L Anion Gap mmol/L BUN (7-17) mg/dL Creatinine (0.52-1.04) mg/dL Est GFR (CKD-EPI)AfAm (>60 ml/min/1.73 sqM) Est GFR (CKD-EPI)NonAf (>60 ml/min/1.73 sqM) Glucose (74-99) mg/dL Calcium (8.4-10.2) mg/dL Total Bilirubin (0.2-1.3) mg/dL AST (14-36) U/L ALT (9-52) U/L Alkaline Phosphatase (38-126) U/L Troponin I <0.012 (0.000-0.034) ng/mL Total Protein (6.3-8.2) g/dL Albumin (3.5-5.0) g/dL Urine Color Light Yellow Urine Appearance Clear (Clear) Urine pH 7.5 (5.0-8.0) Ur Specific [place] 1.014 (1.001-1.035) Urine Protein Trace H (Negative) Urine Glucose (UA) Negative (Negative) Urine Ketones Negative (Negative) Urine Blood Negative (Negative) Urine Nitrite Positive H (Negative) Urine Bilirubin Negative (Negative) Urine Urobilinogen <2.0 (<2.0) mg/dL Ur Leukocyte Esterase Small H (Negative) Urine RBC <1 (0-5) /hpf Urine WBC 10 H (0-5) /hpf Ur Squamous Epith Cells <1 (0-4) /hpf Urine Bacteria Few H (None) /hpf Urine Opiates Screen Not Detected (NotDetected) Ur Oxycodone Screen Not Detected (NotDetected) Urine Methadone Screen Not Detected (NotDetected) Ur Propoxyphene Screen Not Detected (NotDetected) Ur Barbiturates Screen Not Detected (NotDetected) U Tricyclic Antidepress Not Detected (NotDetected) Ur Phencyclidine Scrn Not Detected (NotDetected) Ur Amphetamines Screen Not Detected (NotDetected) U Methamphetamines Scrn Not Detected (NotDetected) U Benzodiazepines Scrn Not Detected (NotDetected) Urine Cocaine Screen Not Detected (NotDetected) U Marijuana (THC) Screen Not Detected (NotDetected) Disposition Clinical Impression: Syncope Disposition: ADMITTED IP TO THIS [facility] Condition: Stable Is patient prescribed a controlled substance at d/c from ED?: No Referrals: Maikel Johnson MD [Primary Care Provider] - 1-2 days Decision Date: 02/23/19 Decision Time: 15:01
[2019-02-23] MEDS ORDERED: ONDANSETRON 4 MG/2 ML VIAL IVP PRN (15:15)
[2019-02-23] MEDS ORDERED: SODIUM CHLORIDE 0.9% 1,000 ML IV SCH (15:15)
[2019-02-23] MEDS ORDERED: NALOXONE 0.4 MG/ML 1 ML VIAL IV PRN (15:15)
[2019-02-23] MEDS ORDERED: oxyCODONE-APAP 5-325MG 1 EACH TAB PO PRN (15:15)
[2019-02-23] MEDS ORDERED: traMADol 50 MG TAB PO PRN (15:15)
[2019-02-23] MEDS ORDERED: ACETAMINOPHEN TAB 325 MG TAB PO PRN (15:15)
--- NOTE | 2019-02-23 15:40 | XR ---
EXAMINATION TYPE: XR chest 2V DATE OF EXAM: 02/23/2019 COMPARISON: 07/15/2017 HISTORY: 64-year-old female with syncope, shortness of breath TECHNIQUE: AP and lateral views FINDINGS: Very low lung volumes crowding the vascular markings. Bibasilar opacities are present. The heart liudmila ins are obscured by the elevated hemidiaphragms. Very limited lateral view due to large patient body habitus and low lung volumes. Vertebroplasty change near the thoracolumbar junction. IMPRESSION: Suboptimal study due to severe hypoventilatory changes. The upper lungs appear clear.
[2019-02-23 16:38] LABS: Appearance,Urine Clear (Clear); Bacteria,Urine Few /hpf; Bilirubin,Urine Negative (Negative); Blood,Urine Negative (Negative); Color,Urine Light Yellow; Glucose,Urine (UA) Negative (Negative); Ketones,Urine Negative (Negative); Leukocyte Esterase,Urine Small (Negative); Nitrite,Urine Positive (Negative); PH, Urine 7.5 (5.0-8.0); Protein,Urine Trace (Negative); RBC,Urine <1 /hpf (0-5); Specific Gravity,Urine 1.014 (1.001-1.035); Squamous Epithelial Cell,Urine <1 /hpf (0-4); Urobilinogen,Urine <2.0 mg/dL (<2.0)
[2019-02-23 16:47] LABS: Amphetamine Screen,Urine Not Detected (NotDetected); Barbiturate Screen,Urine Not Detected (NotDetected); Benzodiazepines Screen,Urine Not Detected (NotDetected); Cocaine Screen,Urine Not Detected (NotDetected); Methadone Screen, Urine Not Detected (NotDetected); Opiate Screen,Urine Not Detected (NotDetected); Oxycodone Screen, Urine Not Detected (NotDetected); Phencyclidine Screen,Urine Not Detected (NotDetected); Tricyclic Antidepressant,Urine Not Detected (NotDetected); Urn Cannabinoid Scrn Not Detected (NotDetected)
[2019-02-23 18:14] VITALS: BMI 20.3
[2019-02-23 18:34] LABS: Glucose,Whole Blood 84 mg/dL (75-99)
--- NOTE | 2019-02-23 20:46 | P.CNNES ---
History of Present Illness Consult date: 02/23/19 Requesting physician: Prashant Castro Reason for Consult: Syncope Chief complaint: Passing out History of Present Illness: This is a 64 RH female h/o adrenal insufficiency, COPD, thyroid disease, HL, JAREN and tremors who presented to our facility c/o recurrent syncope x 1 week. Symptoms started after patient returned home from a cruise. She fell multiple times as a result of her syncope, and the day prior to admission she did striek her head. She c/o dizziness, off balance and need help to walk around her house. ER documentation indicates that patient has pain med-seeking behavior, that she is constantly requesting pain meds from her PCP and creating reasons to request pain medication. Patient's brother and daughter state that she is very dramatic in nature and often changes her demeanor when there is medical personnel in the room. Shortly after she arrived on the floor, she became unresponsive even to sternal rub, so rapid response was called. When everyone was in the room, she suddenly opened her eyes and became responsive without intervention. Patient sees Dr. Krueger who has her on Singulex for "debilitating migraine." Patient states the AED has worked quite well for the above. Review of Systems I have performed a 14-point organ ROS with patient; pertinents are as per HPI. Past Medical History Past Medical History: Asthma, Cancer, COPD, GERD/Reflux, Hyperlipidemia, Sleep Apnea/CPAP/BIPAP, Thyroid Disorder Additional Past Medical History / Comment(s): Chronic bilateral hemidiaphr agmatic elevation/weakness/paralysis, adrenal insufficiency, hiatal hernia, basal cell carcinoma of the skin, uses cane , uses oxygen continous at 3L, irregular bowel movements, hx endocarditis,osteoporosis, hx fx spine agammaglobulinemia History of Any Multi-Drug Resistant Organisms: None Reported Past Surgical History: Adenoidectomy, Appendectomy, Back Surgery, Breast Surgery, Cholecystectomy, Hysterectomy, Joint Replacement, Tonsillectomy Additional Past Surgical History / Comment(s): left knee replacement, left knee arthroscopy, breast biopsy-rt, mino breast reduction, hemorrhoidectomy Past Anesthesia/Blood Transfusion Reactions: Family History of Problems w/ Anesthesia, Motion Sickness Additional Past Anesthesia/Blood Transfusion Reaction / Comment(s): "brother was awake during whole surgery" Past Psychological History: No Psychological Hx Reported Smoking Status: Never smoker Past Alcohol Use History: None Reported Past Drug Use History: None Reported - Past Family History Mother Family Medical History: Cancer Father Family Medical History: Cancer Medications and Allergies Home Medications Medication Instructions Recorded Confirmed Type Lovastatin [Mevacor] 20 mg PO DAILY 02/14/14 02/23/19 History rOPINIRole HCL [Requip] 2 mg PO HS 02/14/14 02/23/19 History traMADol HCl [Ultram] 50 mg PO QID 02/14/14 02/23/19 History Albuterol Nebulized [Ventolin 2.5 mg INHALATION RT-QID PRN 10/26/15 02/23/19 History Nebulized] Diclofenac Sodium [Voltaren] 75 mg PO BID 11/05/15 02/23/19 History predniSONE [Prednisone] 5 mg PO DAILY 11/05/15 02/23/19 History Baclofen 10 mg PO QID PRN 01/21/17 02/23/19 History EPINEPHrine [Epipen 2-Bert] 0.3 mg IM ONCE PRN 01/21/17 02/23/19 History Linaclotide [Linzess] 72 mcg PO DAILY 01/21/17 02/23/19 History Mirtazapine [Remeron] 30 mg PO HS 01/21/17 02/23/19 History Montelukast [Singulair] 10 mg PO HS 01/21/17 02/23/19 History Omeprazole 40 mg PO DAILY 01/21/17 02/23/19 History Ondansetron [Zofran ODT] 8 mg PO Q8HR PRN 01/21/17 02/23/19 History Ammonium Lactate Lotion 1 applic TOPICAL BID 02/23/19 02/23/19 History [Lac-Hydrin 12% Lotion] Budesonide-Formot 160-4.5 Mcg 2 puff INHALATION RT-BID 02/23/19 02/23/19 History [Symbicort 160-4.5 Mcg Inhaler] Buprenorphine HCl [Belbuca] 150 mcg BUCCAL Q12H 02/23/19 02/23/19 History DULoxetine HCL [Cymbalta] 30 mg PO HS 02/23/19 02/23/19 History Denosumab [Prolia] 60 mg SQ Q180D 02/23/19 02/23/19 History Famotidine [Pepcid] 40 mg PO BID 02/23/19 02/23/19 History Furosemide [Lasix] 40 mg PO DAILY 02/23/19 02/23/19 History Gabapentin 1,200 mg PO BID 02/23/19 02/23/19 History Levothyroxine Sodium [Synthroid] 300 mcg PO DAILY 02/23/19 02/23/19 History Propranolol [Inderal] 10 mg PO TID 02/23/19 02/23/19 History Topiramate [Topamax] 25 mg PO BID 02/23/19 02/23/19 History Topiramate [Topamax] 100 mg PO BID 02/23/19 02/23/19 History Allergies Allergy/AdvReac Type Severity Reaction Status Date / Time aspirin Allergy Rash/Hives Verified 02/23/19 13:23 bee pollen Allergy Anaphylaxis Verified 02/23/19 13:23 cefdinir [From Omnicef] Allergy Anaphylaxis Verified 02/23/19 13:23 clarithromycin [From Biaxin] Allergy Anaphylaxis Verified 02/23/19 13:23 ibuprofen [From Advil] Allergy Anaphylaxis Verified 02/23/19 13:23 Iodinated Contrast- Oral and Allergy SWELLING Verified 02/23/19 13:23 IV Dye OF THROAT [Iodinated Contrast Media - IV Dye] iodine Allergy Anaphylaxis Verified 02/23/19 13:23 omalizumab [From Xolair] Allergy Anaphylaxis Verified 02/23/19 13:23 Penicillins Allergy Dyspnea Verified 02/23/19 13:23 prochlorperazine edisylate Allergy Rash/Hives Verified 02/23/19 13:23 [From Compazine] prochlorperazine maleate Allergy Rash/Hives Verified 02/23/19 13:23 [From Compazine] shellfish derived Allergy Anaphylaxis Verified 02/23/19 13:23 codeine AdvReac Nausea Verified 02/23/19 13:23 Physical Examination - Vital Signs Vital Signs: Vital Signs Temp Pulse Pulse Resp BP BP Pulse Ox 02/23/19 18:00 16 02/23/19 16:45 98.1 F 67 16 116/77 98 02/23/19 16:26 115/73 02/23/19 15:10 75 22 116/81 94 L 02/23/19 12:01 97.9 F 65 16 126/81 92 L Intake and Output 02/23/19 02/23/19 02/23/19 06:59 14:59 22:59 Other: Weight 58.967 kg Gen NAD Pleasant and cooperative HEENT NCAT Sclera without icterus O/P clear Neck Supple No carotid bruit Cor RRR no m/r/g Lungs CTAB Abd Soft NTND +BS Ext Warm to touch No edema Neuro MS A+Ox4 Normal fluency Able to follow all commands CN PERRL VFF no APD EOMI no nystagmus or MOY No facial asymmetry Masseter's symmetric Hearing intact to normal voice bilaterally Speech slow but not dysarthric She does have a voice tremor Equal elevation of palate Tongue midline Sym shrug and SCM bilaterally Motor Normal bulk/tone No pronator or leg drift Head titubation Strength 5/5 sym throughout Sens Intact to LT x4 No neglect or extinction Coord She has pass-pointing on command but is able to grab onto my hand quite accurately on observation DTRs 2+/4 sym throughout Toes downgoing bilaterally No clonus at achilles Gait Deferred NIHSS 0 Results - Laboratory Findings CBC and BMP: 02/23/19 13:00 02/23/19 13:00 Abnormal Lab Findings: Abnormal Labs 02/23/19 02/23/19 02/23/19 13:00 13:00 16:20 RDW 16.1 H Carbon Dioxide 36 H BUN 26 H Creatinine 1.36 H Glucose 119 H AST 53 H Urine Protein Trace H Urine Nitrite Positive H Ur Leukocyte Esterase Small H Urine WBC 10 H Urine Bacteria Few H - Diagnostic Findings Additional findings: CT Head wo cont 02/23/19. No ICH. Nil acute. I have reviewed neuroimages myself. Assessment and Plan Assessment: Dizziness/syncope- etiology unclear Functional/non-physiologic exam Head tremor Plan: -From neuro standpoint, will obtain MRI brain wo johnny to r/o small posterior circulation ischemic infarct -Carotid duplex -EEG -Morning cortisol given h/o adrenal insufficiency -Other medical work-up for syncope deferred to primary team -d/w patient/RN in detail. All questions answered. Thank you for this consultation. Please call with ?. Time with Patient: Greater than 30 (Time spent in direct patient care, greater than 50% of which was spent in [id number] counseling and coordination of care: 70 minutes)
[2019-02-23] MEDS ORDERED: ONDANSETRON ODT 8 MG TAB.RAPDIS PO PRN (21:56)
[2019-02-23] MEDS ORDERED: ALBUTEROL NEBULIZED 2.5 MG/3 ML INHALATION PRN (21:56)
[2019-02-23] MEDS ORDERED: NON-FORMULARY DRUG (Diclofenac Sodium 75 MG) PO SCH (22:00)
[2019-02-23] MEDS ORDERED: GABAPENTIN 300 MG CAP PO SCH (22:00)
[2019-02-23] MEDS ORDERED: ONDANSETRON ODT 4 MG TAB PO PRN (22:02)
--- NOTE | 2019-02-23 22:13 | P.HPIM ---
History of Present Illness H&P Date: 02/23/19 Chief Complaint: Recurrent syncope History of presenting complaint: This is a 64-year-old patient who follows a Dr. Maikel Johnson. Patient states that she came back from the cruise about 6 days ago. Since then she been having episodes of passing out. She's had a few episodes. She goes down suddenly. There is no chest pain no palpitation. Patient at baseline uses a cane because of chronic back pain. Patient's daughter had called the nurse Suze would inform me that since patient's 10 months ago, the patient's had been giving a lot of pain medications. Since then she is guarded Dr. Johnson's office several times to us for more pain medications. Denies any fever and chills. Appetite is okay. Patient sometimes or tremors. Sometimes of the head and the body. No obvious seizure activity was reported. Review of systems: GEN.: Tired EYES: None HEENT: None NECK: None RESPIRATORY: None CARDIOVASCULAR: None GASTROINTESTINAL: None GENITOURINARY: None MUSCULOSKELETAL: Chronic low back pain LYMPHATICS: None HEMATOLOGICAL: None PSYCHIATRY: None NEUROLOGICAL: As above, with nonspecific type tremors of the limbs and head Past medical history: Asthma, COPD, GERD, hyperlipidemia, obstructive sleep apnea, hypothyroid, chronic bilateral hemidiaphragmatic paralysis, irritable insufficiency, hiatal hernia, basal cell carcinoma, home oxygen 3 L, and hepatitis, osteoporosis, fracture of the spine, 8, blood anemia Social history: Does not smoke or drink alcohol. Is a Physical examination: VITAL SIGNS: 98, 68, 16, 103/68, 98% on 3 L GENERAL: Slim built, laying in bed somewhat uncomfortable. EYES: Pupils equal. Conjunctiva normal. HEENT: External appearance of nose and ears normal, oral cavity grossly normal. NECK: JVD not raised; masses not palpable. HEART: First and second heart sounds are normal; no edema. LUNGS: Respiratory rate normal; decreased breath sounds. ABDOMEN: Soft, nontender, liver spleen not palpable, no masses palpable. PSYCH: Awake, but tired appearing, able to answer questionsl. NEUROLOGICAL: Cranial nerves grossly intact; no facial asymmetry, power and sensation grossly intact, some tremor symptoms of the head and the arm. LYMPHATICS: No lymph nodes palpable in the axilla and neck MUSCULOSKELETAL: Wasting of some muscles loss of subcutaneous fat INVESTIGATIONS, reviewed in the clinical context: White count 9.9 hemoglobin 12.5 platelets 156 potassium 4.1 bun 26 creatinine 1.36 Urine drug screen negative Computed tomography scan of the brain unremarkable Assessment: -This is a patient presenting with recurrent episodes of syncope. This could be combination of different things. It may be noted that patient is in renal failure. Patient is on a rather hefty dose of Neurontin.'s patient the setting of renal failure this could be rather toxic. This could explain patient b ecoming lethargic having tremors. -Renal failure at this point unknown effects acute or chronic. Will need further workup -Hypothyroidism. Patient again a rather hefty dose of Synthroid. Need to check for over replacement -Moderate persistent asthma -GERD -Hyperlipidemia -Chronic bilateral hemidiaphragmatic paralysis -Hiatal hernia -Chronic hypoxic respiratory failure on home oxygen 3 L -Chronic low back pain Plan: Patient be put on IV fluids. We'll stop renal offensive medications including NSAIDs. We will do routine ultrasound. We'll check patient's thyroid function. We'll cut back her gabapentin to 300 mg twice a day starting in the morning. We will also cut back on the dose of baclofen. Neurology has been consulted. We'll also stop patient's diclofenac fall precautions are in place. 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, adrenal insufficiency, hiatal hernia, basal cell carcinoma of the skin, uses cane , uses oxygen continous at 3L, irregular bowel movements, hx endocarditis,osteoporosis, hx fx spine agammaglobulinemia History of Any Multi-Drug Resistant Organisms: None Reported Past Surgical History: Adenoidectomy, Appendectomy, Back Surgery, Breast Surgery, Cholecystectomy, Hysterectomy, Joint Replacement, Tonsillectomy Additional Past Surgical History / Comment(s): left knee replacement, left knee arthroscopy, breast biopsy-rt, mino breast reduction, hemorrhoidectomy Past Anesthesia/Blood Transfusion Reactions: Family History of Problems w/ Anesthesia, Motion Sickness Additional Past Anesthesia/Blood Transfusion Reaction / Comment(s): "brother was awake during whole surgery" Past Psychological History: No Psychological Hx Reported Smoking Status: Never smoker Past Alcohol Use History: None Reported Past Drug Use History: None Reported - Past Family History Mother Family Medical History: Cancer Father Family Medical History: Cancer Medications and Allergies Home Medications Medication Instructions Recorded Confirmed Type Lovastatin [Mevacor] 20 mg PO DAILY 02/14/14 02/23/19 History rOPINIRole HCL [Requip] 2 mg PO HS 02/14/14 02/23/19 History traMADol HCl [Ultram] 50 mg PO QID 02/14/14 02/23/19 History Albuterol Nebulized [Ventolin 2.5 mg INHALATION RT-QID PRN 10/26/15 02/23/19 History Nebulized] Diclofenac Sodium [Voltaren] 75 mg PO BID 11/05/15 02/23/19 History predniSONE [Prednisone] 5 mg PO DAILY 11/05/15 02/23/19 History Baclofen 10 mg PO QID PRN 01/21/17 02/23/19 History EPINEPHrine [Epipen 2-Bert] 0.3 mg IM ONCE PRN 01/21/17 02/23/19 History Linaclotide [Linzess] 72 mcg PO DAILY 01/21/17 02/23/19 History Mirtazapine [Remeron] 30 mg PO HS 01/21/17 02/23/19 History Montelukast [Singulair] 10 mg PO HS 01/21/17 02/23/19 History Omeprazole 40 mg PO DAILY 01/21/17 02/23/19 History Ondansetron [Zofran ODT] 8 mg PO Q8HR PRN 01/21/17 02/23/19 History Ammonium Lactate Lotion 1 applic TOPICAL BID 02/23/19 02/23/19 History [Lac-Hydrin 12% Lotion] Budesonide-Formot 160-4.5 Mcg 2 puff INHALATION RT-BID 02/23/19 02/23/19 History [Symbicort 160-4.5 Mcg Inhaler] Buprenorphine HCl [Belbuca] 150 mcg BUCCAL Q12H 02/23/19 02/23/19 History DULoxetine HCL [Cymbalta] 30 mg PO HS 02/23/19 02/23/19 History Denosumab [Prolia] 60 mg SQ Q180D 02/23/19 02/23/19 History Famotidine [Pepcid] 40 mg PO BID 02/23/19 02/23/19 History Furosemide [Lasix] 40 mg PO DAILY 02/23/19 02/23/19 History Gabapentin 1,200 mg PO BID 02/23/19 02/23/19 History Levothyroxine Sodium [Synthroid] 300 mcg PO DAILY 02/23/19 02/23/19 History Propranolol [Inderal] 10 mg PO TID 02/23/19 02/23/19 History Topiramate [Topamax] 25 mg PO BID 02/23/19 02/23/19 History Topiramate [Topamax] 100 mg PO BID 02/23/19 02/23/19 History Allergies Allergy/AdvReac Type Severity Reaction Status Date / Time aspirin Allergy Rash/Hives Verified 02/23/19 13:23 bee pollen Allergy Anaphylaxis Verified 02/23/19 13:23 cefdinir [From Omnicef] Allergy Anaphylaxis Verified 02/23/19 13:23 clarithromycin [From Biaxin] Allergy Anaphylaxis Verified 02/23/19 13:23 ibuprofen [From Advil] Allergy Anaphylaxis Verified 02/23/19 13:23 Iodinated Contrast- Oral and Allergy SWELLING Verified 02/23/19 13:23 IV Dye OF THROAT [Iodinated Contrast Media - IV Dye] iodine Allergy Anaphylaxis Verified 02/23/19 13:23 omalizumab [From Xolair] Allergy Anaphylaxis Verified 02/23/19 13:23 Penicillins Allergy Dyspnea Verified 02/23/19 13:23 prochlorperazine edisylate Allergy Rash/Hives Verified 02/23/19 13:23 [From Compazine] prochlorperazine maleate Allergy Rash/Hives Verified 02/23/19 13:23 [From Compazine] shellfish derived Allergy Anaphylaxis Verified 02/23/19 13:23 codeine AdvReac Nausea Verified 02/23/19 13:23 Physical Exam Vitals: Vital Signs Temp Pulse Pulse Resp BP BP Pulse Ox 02/23/19 21:24 98.0 F 68 16 103/68 98 02/23/19 18:00 16 02/23/19 16:45 98.1 F 67 16 116/77 98 02/23/19 16:26 115/73 02/23/19 15:10 75 22 116/81 94 L 02/23/19 12:01 97.9 F 65 16 126/81 92 L Intake and Output 02/23/19 02/23/19 02/23/19 06:59 14:59 22:59 Other: Weight 58.967 kg Results CBC & Chem 7: 02/23/19 13:00 02/23/19 13:00 Labs: Abnormal Lab Results - Last 24 Hours (Table) 02/23/19 02/23/19 02/23/19 Range/Units 13:00 13:00 16:20 RDW 16.1 H (11.5-15.5) % Carbon Dioxide 36 H (22-30) mmol/L BUN 26 H (7-17) mg/dL Creatinine 1.36 H (0.52-1.04) mg/dL Glucose 119 H (74-99) mg/dL AST 53 H (14-36) U/L Urine Protein Trace H (Negative) Urine Nitrite Positive H (Negative) Ur Leukocyte Esterase Small H (Negative) Urine WBC 10 H (0-5) /hpf Urine Bacteria Few H (None) /hpf Thrombosis Risk Factor Assmnt - Choose All That Apply Any of the Below Risk Factors Present?: Yes Each Factor Represents 1 point: Age 41-60 years Other Risk Factors: Yes Each Risk Factor Represents 2 Points: Age 61-74 years Other congenital or acquired thrombophilia - If yes, enter type in comment: No Thrombosis Risk Factor Assessment Total Risk Factor Score: 3 Thrombosis Risk Factor Assessment Level: Moderate Risk
[2019-02-23] MEDS: traMADol 50 MG TAB PO SCH (22:35)
[2019-02-23] MEDS: PROPRANOLOL 10 MG TAB PO SCH (22:36)
[2019-02-23] MEDS: ENOXAPARIN 40 MG/0.4 ML SYRINGE SQ SCH (22:36)
[2019-02-23] MEDS: FAMOTIDINE 20 MG TAB PO SCH (22:36)
[2019-02-23] MEDS: TOPIRAMATE 100 MG TAB PO SCH (22:36)
[2019-02-23] MEDS: TOPIRAMATE 25 MG TAB PO SCH (22:37)
[2019-02-23] MEDS: MIRTAZAPINE 15 MG TAB PO SCH (22:37)
[2019-02-23] MEDS: DULoxetine HCL 30 MG CAPSULE.DR PO SCH (22:37)
[2019-02-23] MEDS: Buprenorphine Hcl [Belbuca] 150 MCG BUCCAL SCH (22:40)
[2019-02-23] MEDS: LACTATED RINGERS 1,000 ML IV SCH (22:40)
[2019-02-24] MEDS: LACTATED RINGERS 1,000 ML IV SCH ×3 (06:13→19:34)
[2019-02-24] MEDS: SYMBICORT 160-4.5 MCG INHALER INHALATION SCH ×2 (07:13→20:07)
[2019-02-24] MEDS: ATORVASTATIN 10 MG TAB PO SCH (07:49)
[2019-02-24] MEDS: GABAPENTIN 300 MG CAP PO SCH ×2 (07:50→21:51)
[2019-02-24] MEDS: traMADol 50 MG TAB PO SCH ×4 (07:50→21:53)
[2019-02-24] MEDS: TOPIRAMATE 100 MG TAB PO SCH ×2 (07:51→21:51)
[2019-02-24] MEDS: PANTOPRAZOLE 40 MG TABLET PO SCH (07:51)
[2019-02-24] MEDS: FAMOTIDINE 20 MG TAB PO SCH ×2 (07:51→21:51)
[2019-02-24] MEDS: AMMONIUM LACTATE 12% LOTION 225 GM BTL TOPICAL SCH ×2 (07:51→21:52)
[2019-02-24] MEDS: predniSONE 5 MG TAB PO SCH (07:52)
[2019-02-24] MEDS: TOPIRAMATE 25 MG TAB PO SCH ×2 (07:52→21:52)
[2019-02-24] MEDS: PROPRANOLOL 10 MG TAB PO SCH ×3 (07:52→21:51)
--- NOTE | 2019-02-24 08:34 | US ---
EXAMINATION TYPE: US carotid duplex BILAT DATE OF EXAM: 02/24/2019 COMPARISON: US 2011 CLINICAL HISTORY: Dizziness. Dizziness, syncope EXAM MEASUREMENTS: RIGHT: Peak Systolic Velocity (PSV) cm/sec ----- Right CCA: 50.6 ----- Right ICA: 58.8 ----- Right ECA: 44.9 ICA/CCA ratio: 1.2 RIGHT: End Diastole cm/sec ----- Right CCA: 15.3 ----- Right ICA: 20.1 ----- Right ECA: 4.4 LEFT: Peak Systolic Velocity (PSV) cm/sec ----- Left CCA: 56.1 ----- Left ICA: 72.8 ----- Left ECA: 45.7 ICA/CCA ratio: 1.3 LEFT: End Diastole cm/sec ----- Left CCA: 15.9 ----- Left ICA: 33.6 ----- Left ECA: 5.3 VERTEBRALS (direction of flow): Right Vertebral: Antegrade Left Vertebral: Antegrade Rhythm: Normal No elevated velocities, no significant stenosis. IMPRESSION: Mild degree of grayscale atheromatous plaquing with no sonographically evident hemodynam ically significant stenosis within either visualized carotid arterial system. Criteria for Assigning % of Stenosis / Diameter reduction (Estimation based on the indirect measurements of the internal carotid artery velocities (ICA PSV). 1. Normal (no stenosis)=ICA PSV < 125 cm/s: ratio < 2.0: ICA EDV<40 cm/s. 2. Less than 50% stenosis=ICA PSV < 125 cm/s: ratio < 2.0: ICA EDV<40 cm/s. 3. 50 to 69% stenosis=ICA PSV of 125 to 230 cm/s: ration 2.0 ? 4.0: ICA EDV 40-100 cm/s. 4. Greater than 70% stenosis to near occlusion= ICA PSV > 230 cm/s: ratio > 4.0: ICA EDV > 100 cm/s. 5. Near occlusion= ICA PSV velocities may be low or undetectable: variable ratio and ICA EDV. 6. Total occlusion=unable to detect flow.
[2019-02-24 09:50] LABS: T4, Free (Free Thyroxine) <0.07 ng/dL (0.78-2.19)
--- NOTE | 2019-02-24 11:20 | EEG ---
ELECTROENCEPHALOGRAM REPORT DATE OF TESTING: February 24, 2019 CLINICAL PROBLEM: Syncope/dizziness. EEG was requested to rule out epileptic activity. TYPE OF RECORDING: Bedside tracing using the 10-20 international electrode placement system. No sedation was given prior to the beginning of this recording. FINDINGS: The background tracing is seen with a symmetric alpha rhythm posteriorly with attenuation on eye opening and returns upon eye closure. There are scattered EMG artifacts that correspond to patient's facial movements/jaw clenching. There are no other electrographic correlates to these movements. Photic stimulation elicits a symmetric driving response. Hyperventilation is not performed in this recording. There is no definitive sleep architecture seen. There is no background asymmetry, ictal or interictal patterns appreciated. IMPRESSION: This is a normal awake electroencephalogram without background asymmetry or epileptiform patterns. The patient's facial movements/jaw clenching are seen only with EMG artifact without other electrographic correlates. Clinical correlation is advised. KATARINA / ROSAMARIAN: [id number] / HUGO
[2019-02-24] MEDS: Linaclotide [Linzess] 72 MCG PO SCH (12:41)
--- NOTE | 2019-02-24 13:07 | P.CRDCN ---
History of Present Illness History of present illness: This is a pleasant 64-year-old female past medical history significant for asthma, COPD, adrenal insufficency, dyslipidemia, hypothyroidism, diaphragmatic myopathy and mild-moderate aortic insufficiency. She follows with Dr. Henson in the office. We have been asked to see her in consultation secondary to dizziness/syncope. She states since Thursday she has passed out up to 40 times. She states these episodes occur while she is standing and exerting herself. She starts to feel lightheaded and then next thing she is on the floor. There has been positive LOC. No room spinning dizziness, chest pain, shortness of breath, nausea, vomiting, palpitations or diaphoresis. She is seen and examined laying flat in bed in no acute distress. She is quite tearful and concerned about her p ain medications being weaned down. She saw Dr. Henson in the office in June 2018 and was recommended she undergo extensive evaluation with an Endocronologist secondary to suspected primary and secondary hypothyroidism. She has not set this up yet. TSH on this admission is 75.9, free T4 less than 0.07 and cortisol 14. She is currently maintained on synthroid 300 mcg daily and states she is compliant. There was a question per the nursing staff regarding a possible arrhythmia. Telemetry tracings reviewed and reveal artifact with no acute arrhythmia. EKG reveals sinus mechanism, low voltage and non-specific T waves. Chest xray reveals elevated hemidiaphragm and bibasilar opacities. Laboratory data reviewed, cardiac enzymes negative 2, TSH 75.9, free T4 less than 0.07, cortisol 14, creatinine 1.36, sodium 144, potassium 4.1, d-dimer 0.52, WBC 9.9, hemoglobin 12.5 and platelets 156. Current daily cardiac medications include propanolol 10 mg 3 times a day which she takes for migraines, lovastatin 20 mg daily and Lasix 40 mg daily which she takes for lower extremity swelling. Most recent echocardiogram obtained in the office June 2018 reveals preserved LV systolic function with ejection fraction 55% and mild to moderate aortic regurgitation. At the time of my exam: CONSTITUTIONAL: Denies fever. Denies chills. EYES: Denies blurred vision. Denies vision changes. Denies eye pain. EARS, NOSE, MOUTH & THROAT: Denies headache. Denies sore throat. Denies ear pain. CARDIOVASCULAR: Denies chest pain. Denies shortness of breath. Denies orthopnea. Denies PND. Denies palpitations. RESPIRATORY: Denies cough. GASTROINTESTINAL: Denies abdominal pain. Denies diarrhea. Denies constipation. Denies nausea. Denies vomiting. MUSCULOSKELETAL: Denies myalgias. INTEGUMENTARY: Denies pruitis. Denies rash. NEUROLOGIC: Denies numbness. Denies tingling. Denies weakness. PSYCHIATRIC: Denies anxiety. Denies depression. ENDOCRINE: Denies fatigue. Denies weight change. Denies polydipsia. Denies polyurina. GENITOURINARY: Denies burning, hematuria or urgency with micturation. HEMATOLOGIC: Denies history of anemia. Denies bleeding. Blood pressure 106/56 heart rate 67 afebrile maintaining oxygen saturation on room air. Negative for orthostatic changes. GENERAL: This is a 64-year-old female in no apparent distress at the time of my examination. HEENT: Head is atraumatic, normocephalic. Pupils are equal, round. Sclerae anicteric. Conjunctivae are clear. Mucous membranes of the mouth are moist. Neck is supple. There is no jugular venous distention. No carotid bruit is heard. LUNGS: Clear to auscultation no wheezes, rales or rhonchi. No chest wall tenderness is noted on palpation or with deep breathing. HEART: Regular rate and rhythm without murmurs, rubs or gallops. S1 and S2 heard. ABDOMEN: Soft, nontender. Bowel sounds are heard. No organomegaly noted. EXTREMITIES: No evidence of peripheral edema and no calf tenderness noted. VASCULAR: Radial and dorsalis pedis pulses palpated, no evidence of clubbing. NEUROLOGIC: Patient is awake, alert and oriented x3. ASSESSMENT Syncope Hypothyroidism, profound Dyslipidemia COPD Gastroesophageal reflux disease PLAN Awaiting MRI brain, EEG and carotid duplex per neurology. Obtain 2-D echocardiogram and Doppler study to assess cardiac structure and function. Ongoing telemetry monitoring. Recommend extensive endocrinology and neurology evaluation. This has been discussed in detail with her primary care team. At this point there is no evidence to suggest cardiac etiology for syncopal spells. Thank you kindly for this consultation. Nurse Practitioner note has been reviewed, I agree with a documented findings an d plan of care. Patient was seen and examined. 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, adrenal insufficiency, hiatal hernia, basal cell carcinoma of the skin, uses cane , uses oxygen continous at 3L, irregular bowel movements, hx endocarditis,osteoporosis, hx fx spine agammaglobulinemia History of Any Multi-Drug Resistant Organisms: None Reported Past Surgical History: Adenoidectomy, Appendectomy, Back Surgery, Breast Surgery, Cholecystectomy, Hysterectomy, Joint Replacement, Tonsillectomy Additional Past Surgical History / Comment(s): left knee replacement, left knee arthroscopy, breast biopsy-rt, mino breast reduction, hemorrhoidectomy Past Anesthesia/Blood Transfusion Reactions: Family History of Problems w/ Ane sthesia, Motion Sickness Additional Past Anesthesia/Blood Transfusion Reaction / Comment(s): "brother was awake during whole surgery" Past Psychological History: No Psychological Hx Reported Smoking Status: Never smoker Past Alcohol Use History: None Reported Past Drug Use History: None Reported - Past Family History Mother Family Medical History: Cancer Father Family Medical History: Cancer Medications and Allergies Home Medications Medication Instructions Recorded Confirmed Type Lovastatin [Mevacor] 20 mg PO DAILY 02/14/14 02/23/19 History rOPINIRole HCL [Requip] 2 mg PO HS 02/14/14 02/23/19 History traMADol HCl [Ultram] 50 mg PO QID 02/14/14 02/23/19 History Albuterol Nebulized [Ventolin 2.5 mg INHALATION RT-QID PRN 10/26/15 02/23/19 History Nebulized] Diclofenac Sodium [Voltaren] 75 mg PO BID 11/05/15 02/23/19 History predniSONE [Prednisone] 5 mg PO DAILY 11/05/15 02/23/19 History Baclofen 10 mg PO QID PRN 01/21/17 02/23/19 History EPINEPHrine [Epipen 2-Bert] 0.3 mg IM ONCE PRN 01/21/17 02/23/19 History Linaclotide [Linzess] 72 mcg PO DAILY 01/21/17 02/23/19 History Mirtazapine [Remeron] 30 mg PO HS 01/21/17 02/23/19 History Montelukast [Singulair] 10 mg PO HS 01/21/17 02/23/19 History Omeprazole 40 mg PO DAILY 01/21/17 02/23/19 History Ondansetron [Zofran ODT] 8 mg PO Q8HR PRN 01/21/17 02/23/19 History Ammonium Lactate Lotion 1 applic TOPICAL BID 02/23/19 02/23/19 History [Lac-Hydrin 12% Lotion] Budesonide-Formot 160-4.5 Mcg 2 puff INHALATION RT-BID 02/23/19 02/23/19 History [Symbicort 160-4.5 Mcg Inhaler] Buprenorphine HCl [Belbuca] 150 mcg BUCCAL Q12H 02/23/19 02/23/19 History DULoxetine HCL [Cymbalta] 30 mg PO HS 02/23/19 02/23/19 History Denosumab [Prolia] 60 mg SQ Q180D 02/23/19 02/23/19 History Famotidine [Pepcid] 40 mg PO BID 02/23/19 02/23/19 History Furosemide [Lasix] 40 mg PO DAILY 02/23/19 02/23/19 History Gabapentin 1,200 mg PO BID 02/23/19 02/23/19 History Levothyroxine Sodium [Synthroid] 300 mcg PO DAILY 02/23/19 02/23/19 History Propranolol [Inderal] 10 mg PO TID 02/23/19 02/23/19 History Topiramate [Topamax] 25 mg PO BID 02/23/19 02/23/19 History Topiramate [Topamax] 100 mg PO BID 02/23/19 02/23/19 History Allergies Allergy/AdvReac Type Severity Reaction Status Date / Time aspirin Allergy Rash/Hives Verified 02/23/19 13:23 bee pollen Allergy Anaphylaxis Verified 02/23/19 13:23 cefdinir [From Omnicef] Allergy Anaphylaxis Verified 02/23/19 13:23 clarithromycin [From Biaxin] Allergy Anaphylaxis Verified 02/23/19 13:23 ibuprofen [From Advil] Allergy Anaphylaxis Verified 02/23/19 13:23 Iodinated Contrast- Oral and Allergy SWELLING Verified 02/23/19 13:23 IV Dye OF THROAT [Iodinated Contrast Media - IV Dye] iodine Allergy Anaphylaxis Verified 02/23/19 13:23 omalizumab [From Xolair] Allergy Anaphylaxis Verified 02/23/19 13:23 Penicillins Allergy Dyspnea Verified 02/23/19 13:23 prochlorperazine edisylate Allergy Rash/Hives Verified 02/23/19 13:23 [From Compazine] prochlorperazine maleate Allergy Rash/Hives Verified 02/23/19 13:23 [From Compazine] shellfish derived Allergy Anaphylaxis Verified 02/23/19 13:23 codeine AdvReac Nausea Verified 02/23/19 13:23 Physical Exam Vitals: Vital Signs Temp Pulse Pulse Resp BP BP BP 02/24/19 05:42 96.9 F L 67 16 02/24/19 00:04 116/71 02/24/19 00:03 68 02/23/19 22:33 69 98/61 02/23/19 21:24 98.0 F 68 16 103/68 02/23/19 18:00 16 02/23/19 16:45 98.1 F 67 16 116/77 02/23/19 16:26 115/73 02/23/19 15:10 75 22 116/81 02/23/19 12:01 97.9 F 65 16 126/81 BP BP Pulse Ox 02/24/19 05:42 106/56 90 L 02/24/19 00:04 116/73 02/24/19 00:03 107/63 02/23/19 22:33 02/23/19 21:24 98 02/23/19 18:00 02/23/19 16:45 98 02/23/19 16:26 02/23/19 15:10 94 L 02/23/19 12:01 92 L Intake and Output 02/23/19 02/24/19 02/24/19 22:59 06:59 14:59 Intake Total 150 950 Balance 150 950 Intake: Intake, IV Titration 150 750 Amount Lactated Ringers 1,000 ml 750 @ 125 mls/hr IV .Q8H [facility] Rx#:[id number] Sodium Chloride 0.9% 1, 150 000 ml @ 50 mls/hr IV . Q20H [facility] Rx#:[id number] Oral 200 Other: Voiding Method Bedside Commode # Voids 1 Results 02/23/19 13:00 02/23/19 13:00 Cardiac Enzymes 02/23/19 02/23/1919 Range/Units 13:00 13:00 23:00 AST 53 H (14-36) U/L Troponin I <0.012 <0.012 (0.000-0.034) ng/mL CBC 02/23/19 Range/Units 13:00 WBC 9.9 (3.8-10.6) k/uL RBC 4.01 (3.80-5.40) m/uL Hgb 12.5 (11.4-16.0) gm/dL Hct 37.9 (34.0-46.0) % Plt Count 156 (150-450) k/uL Comprehensive Metabolic Panel 02/23/19 Range/Units 13:00 Sodium 144 (137-145) mmol/L Potassium 4.1 (3.5-5.1) mmol/L Chloride 100 (98-107) mmol/L Carbon Dioxide 36 H (22-30) mmol/L BUN 26 H (7-17) mg/dL Creatinine 1.36 H (0.52-1.04) mg/dL Glucose 119 H (74-99) mg/dL Calcium 8.7 (8.4-10.2) mg/dL AST 53 H (14-36) U/L ALT 41 (9-52) U/L Alkaline Phosphatase 54 (38-126) U/L Total Protein 7.9 (6.3-8.2) g/dL Albumin 4.4 (3.5-5.0) g/dL Current Medications Generic Name Dose Route Start Last Admin Trade Name Freq PRN Reason Stop Dose Admin Acetaminophen 650 mg 02/23/19 15:15 Tylenol Tab PO Q6HR PRN Mild Pain or Fever > 100.5 Albuterol Sulfate 2.5 mg 02/23/19 21:56 Ventolin Nebulized INHALATION RT-QID PRN Shortness Of Breath Atorvastatin Calcium 10 mg 02/24/19 09:00 02/24/19 07:49 Lipitor PO 10 mg DAILY [facility] Administration Budesonide/Formoterol Fumarate 2 puff 02/24/19 08:00 02/24/19 07:13 Symbicort 160-4.5 Mcg Inhaler INHALATION 2 puff RT-BID [facility] Administration Duloxetine HCl 30 mg 02/23/19 22:00 02/23/19 22:37 Cymbalta PO 30 mg HS [facility] Administration Enoxaparin Sodium 40 mg 02/23/19 22:15 02/23/19 22:36 Lovenox SQ 40 mg Q24H [facility] Administration Famotidine 40 mg 02/23/19 22:00 02/24/19 07:51 Pepcid PO 40 mg BID [facility] Administration Gabapentin 300 mg 02/24/19 09:00 02/24/19 07:50 Neurontin PO 300 mg BID [facility] Administration Lactated Ringer's 1,000 mls @ 125 mls/hr 02/23/19 22:00 02/24/19 06:13 Lactated Ringers IV 125 mls/hr .Q8H [facility] Administration Lactic Acid 1 applic 02/24/19 09:00 02/24/19 07:51 Lac-Hydrin 12% TOPICAL 1 applic BID [facility] Administration Mirtazapine 30 mg 02/23/19 22:00 02/23/19 22:37 Remeron PO 30 mg HS [facility] Administration Montelukast Sodium 10 mg 02/24/19 21:00 Singulair PO HS [facility] Naloxone HCl 0.2 mg 02/23/19 15:15 Narcan IV Q2M PRN Opioid Reversal Buprenorphine Hcl [ 150 mcg 02/23/19 22:00 02/23/19 22:40 Belbuca] 150 Mcg BUCCAL Not Given Q12H [facility] Linaclotide [Linzess 72 mcg 02/24/19 09:00 ] 72 Mcg PO DAILY [facility] Ondansetron HCl 4 mg 02/23/19 15:15 Zofran IVP Q8HR PRN Nausea And Vomiting Ondansetron HCl 8 mg 02/23/19 22:02 Zofran Odt PO Q8HR PRN Nausea And Vomiting Pantoprazole Sodium 40 mg 02/24/19 07:30 02/24/19 07:51 Protonix PO 40 mg DAILY@0730 [facility] Administration Prednisone 5 mg 02/24/19 09:00 02/24/19 07:52 PO 5 mg DAILY [facility] Administration Propranolol HCl 10 mg 02/23/19 22:00 02/24/19 07:52 Inderal PO 10 mg TID [facility] Administration Ropinirole HCl 2 mg 02/23/19 22:00 02/23/19 22:36 Requip PO 2 mg HS [facility] Administration Topiramate 100 mg 02/23/19 22:00 02/24/19 07:51 Topamax PO 100 mg BID [facility] Administration Topiramate 25 mg 02/23/19 22:00 02/24/19 07:52 Topamax PO 25 mg BID [facility] Administration Tramadol HCl 50 mg 02/23/19 15:15 02/24/19 03:55 Ultram PO 50 mg Q6H PRN Administration Moderate Pain Tramadol HCl 50 mg 02/23/19 22:00 02/24/19 07:50 Ultram PO 50 mg QID [facility] Administration Intake and Output 02/23/19 02/24/19 02/24/19 22:59 06:59 14:59 Intake Total 150 950 Balance 150 950 Intake: Intake, IV Titration 150 750 Amount Lactated Ringers 1,000 ml 750 @ 125 mls/hr IV .Q8H [facility] Rx#:[id number] Sodium Chloride 0.9% 1, 150 000 ml @ 50 mls/hr IV . Q20H [facility] Rx#:[id number] Oral 200 Other: Voiding Method Bedside Commode # Voids 1 02/23/19 13:00 02/23/19 13:00
--- NOTE | 2019-02-24 13:56 | P.PN ---
Progress Note - Text Progress Note Date: 02/24/19 Chief Complaint: Recurrent syncope Interval history: This is a 64-year-old patient who follows a Dr. Maikel Johnson. Patient states that she came back from the cruise about 6 days ago. Since then she been having episodes of passing out. She's had a few episodes. She goes down suddenly. There is no chest pain no palpitation. Patient at baseline uses a cane because of chronic back pain. Patient's daughter had called the nurse Suze would inform me that since patient's 10 months ago, the patient's had been giving a lot of pain medications. Since then she is guarded Dr. Johnson's office several times to us for more pain medications. Denies any fever and chills. Appetite is okay. Patient sometimes or tremors. Sometimes of the head and the body. No obvious seizure activity was reported. Today-patient sitting up. For more awake. I had stopped patient Neurontin yesterday 2 much smaller dose. Some of the renal offensive drugs also stop. Getting IV fluids. Patient rather insistent on going back on all her medications. I did explain to at length that this was not needed. In some of the manifestation of her presentation is from side effects. Review of systems: Was done for constitutional, cardiovascular, GI, pulmonary. Neurological relevant finding as above Active Medications Acetaminophen (Tylenol Tab) 650 mg PO Q6HR PRN PRN Reason: Mild Pain or Fever > 100.5 Albuterol Sulfate (Ventolin Nebulized) 2.5 mg INHALATION RT-QID PRN PRN Reason: Shortness Of Breath Atorvastatin Calcium (Lipitor) 10 mg PO DAILY [facility] Last Admin: 02/24/19 07:49 Dose: 10 mg Documented by: Budesonide/Formoterol Fumarate (Symbicort 160-4.5 Mcg Inhaler) 2 puff INHALATION RT-BID [facility] Last Admin: 02/24/19 07:13 Dose: 2 puff Documented by: Duloxetine HCl (Cymbalta) 30 mg PO HS [facility] Last Admin: 02/23/19 22:37 Dose: 30 mg Documented by: Enoxaparin Sodium (Lovenox) 40 mg SQ Q24H [facility] Last Admin: 02/23/19 22:36 Dose: 40 mg Documented by: Famotidine (Pepcid) 40 mg PO BID [facility] Last Admin: 02/24/19 07:51 Dose: 40 mg Documented by: Gabapentin (Neurontin) 300 mg PO BID [facility] Last Admin: 02/24/19 07:50 Dose: 300 mg Documented by: Lactated Ringer's (Lactated Ringers) 1,000 mls @ 125 mls/hr IV .Q8H [facility] Last Admin: 02/24/19 06:13 Dose: 125 mls/hr Documented by: Lactic Acid (Lac-Hydrin 12%) 1 applic TOPICAL BID [facility] Last Admin: 02/24/19 07:51 Dose: 1 applic Documented by: Mirtazapine (Remeron) 30 mg PO [facility] Last Admin: 02/23/19 22:37 Dose: 30 mg Documented by: Montelukast Sodium (Singulair) 10 mg PO [facility] Naloxone HCl (Narcan) 0.2 mg IV Q2M PRN PRN Reason: Opioid Reversal Buprenorphine Hcl [ (Belbuca] 150 Mcg) 150 mcg BUCCAL Q12H [facility] Last Admin: 02/23/19 22:40 Dose: Not Given Documented by: Linaclotide [Linzess (] 72 Mcg) 72 mcg PO DAILY [facility] Last Admin: 02/24/19 12:41 Dose: Not Given Documented by: Ondansetron HCl (Zofran) 4 mg IVP Q8HR PRN PRN Reason: Nausea And Vomiting Ondansetron HCl (Zofran Odt) 8 mg PO Q8HR PRN PRN Reason: Nausea And Vomiting Pantoprazole Sodium (Protonix) 40 mg PO DAILY@0730 [facility] Last Admin: 02/24/19 07:51 Dose: 40 mg Documented by: Prednisone () 5 mg PO DAILY [facility] Last Admin: 02/24/19 07:52 Dose: 5 mg Documented by: Propranolol HCl (Inderal) 10 mg PO TID [facility] Last Admin: 02/24/19 07:52 Dose: 10 mg Documented by: Ropinirole HCl (Requip) 2 mg PO [facility] Last Admin: 02/23/19 22:36 Dose: 2 mg Documented by: Topiramate (Topamax) 100 mg PO BID [facility] Last Admin: 02/24/19 07:51 Dose: 100 mg Documented by: Topiramate (Topamax) 25 mg PO BID [facility] Last Admin: 02/24/19 07:52 Dose: 25 mg Documented by: Tramadol HCl (Ultram) 50 mg PO Q6H PRN PRN Reason: Moderate Pain Last Admin: 02/24/19 03:55 Dose: 50 mg Documented by: Tramadol HCl (Ultram) 50 mg PO QID [facility] Last Admin: 02/24/19 07:50 Dose: 50 mg Documented by: Physical examination: VITAL SIGNS: 96.9, 67, 16, 106/56, 90% on 2 L GENERAL: Sitting up at the edge of the bed awake. Slightly restless EYES: Pupils equal. Conjunctiva normal. HEENT: External appearance of nose and ears normal, oral cavity grossly normal. NECK: JVD not raised; masses not palpable. HEART: First and second heart sounds are normal; no edema. LUNGS: Respiratory rate normal; decreased breath sounds. ABDOMEN: Soft, nontender, liver spleen not palpable, no masses palpable. PSYCH: Awake, answering questions, but anxious. NEUROLOGICAL: No tremors today. MUSCULOSKELETAL: Wasting of some muscles loss of subcutaneous fat INVESTIGATIONS, reviewed in the clinical context: DHS 75 free T4 less than 0.07 White count 9.9 hemoglobin 12.5 platelets 156 potassium 4.1 bun 26 creatinine 1.36 Urine drug screen negative Computed tomography scan of the brain unremarkable Assessment: -This is a patient presenting with recurrent episodes of syncope. This could be combination of different things. It may be noted that patient is in renal failure. Patient is on a rather hefty dose of Neurontin.'s patient the setting of renal failure this could be rather toxic. This could explain patient becoming lethargic having tremors. Patient doing better this morning -Renal failure at this point unknown effects acute or chronic. Will need further workup -Hypothyroidism. Patient again a rather hefty dose of Synthroid. Need to check for over replacement -Moderate persistent asthma -GERD -Hyperlipidemia -Chronic bilateral hemidiaphragmatic paralysis -Hiatal hernia -Chronic hypoxic respiratory failure on home oxygen 3 L -Chronic low back pain Plan: I did get a call from Dr. SARAH Henson from cardiology. Patient known to him. He suggested transfer to [facility]. For further workup. Patient has not follow-up followed up in the past. I did speak to neurologist Dr. Singh. Patient is doing much better this morning compared to yesterday evening. EEG has been unremarkable. It is felt at this point that patient hopefully can be discharged tomorrow to follow further outpatient workup. It should be patient's choice for further workup. I agree patient is to be followed with endocrinology. We will also consult Dr. Daysi Machado from endocrinology. Patient insisted upon getting on the home medications back on board. Did explain to the patient repeatedly this not in her best interest and not safe. Total time spent today was about 45 minutes with over 25 minutes of discussion
--- NOTE | 2019-02-24 13:56 | MR ---
MR brain without contrast HISTORY: Dizziness and ataxia Multiplanar multisequence imaging through the brain Correlation to prior CT brain dated 02/23/2019, prior brain MRI 05/01/2010 Fast brain protocol was utilized. There is no restricted diffusion. There is no hemorrhage or hydroce phalus. There are normal vascular flow voids. Confluent and scattered hyperintensities are present in the periventricular, subcortical white matter. There is been interval increase in the size of the fr ontal juxtacortical hyperintensities on inversion recovery and T2-weighted sequences. Right frontal l esion on axial image 24 measures 7 mm and on prior exam measured approximately 3 to 4 mm. There are a pproximately 15 lesions present on prior exam there are approximately 10 lesions present. Mucosal dis ease present within the maxillary sinuses. The orbits show symmetric appearance. IMPRESSION: Nonspecific white matter demyelination could be related to chronic small vessel ischemia. There are differences in technique. Subacute cerebral vascular accident is not evident.
--- NOTE | 2019-02-24 14:35 | P.PN ---
Subjective Progress Note Date: 02/24/19 Principal diagnosis: Syncope/dizziness Carotid duplex, EEG and MRI. Patient c/o pain but no new neuro c/o. Objective - Vital Signs Vital signs: Vital Signs Temp 96.9 F L 02/24/19 05:42 Pulse 67 02/24/19 05:42 Resp 16 02/24/19 05:42 BP 106/56 02/24/19 05:42 Pulse Ox 90 L 02/24/19 05:42 Intake & Output 02/23/19 02/24/19 02/24/19 18:59 06:59 18:59 Intake Total 1100 Balance 1100 Weight 58.967 kg Intake: Intake, IV Titration 900 Amount Lactated Ringers 1,000 ml 750 @ 125 mls/hr IV .Q8H HETAL Rx#:[id number] Sodium Chloride 0.9% 1, 150 000 ml @ 50 mls/hr IV . Q20H HETAL Rx#:[id number] Oral 200 Other: Voiding Method Bedside Commode # Voids 1 - Exam Gen NAD Pleasant and cooperative MS A+Ox4 Speech slow but fluent Able to follow all commands CN II-XII grossly intact no nystagmus Motor Normal bulk/tone No tremors SANTOS x4 Sens Intact to LT x4 Coord Not tested DTRs 2+/4 sym throughout Gait Deferred - Labs CBC & Chem 7: 02/23/19 13:00 02/23/19 13:00 Labs: Abnormal Lab Results - Last 24 Hours (Table) 02/23/19 02/23/19 02/23/19 Range/Units 13:00 13:00 16:20 RDW 16.1 H (11.5-15.5) % Carbon Dioxide 36 H (22-30) mmol/L BUN 26 H (7-17) mg/dL Creatinine 1.36 H (0.52-1.04) mg/dL Glucose 119 H (74-99) mg/dL AST 53 H (14-36) U/L TSH (0.465-4.680) mIU/L Free T4 (0.78-2.19) ng/dL Urine Protein Trace H (Negative) Urine Nitrite Positive H (Negative) Ur Leukocyte Esterase Small H (Negative) Urine WBC 10 H (0-5) /hpf Urine Bacteria Few H (None) /hpf 08/01/19 Range/Units 07:16 RDW (11.5-15.5) % Carbon Dioxide (22-30) mmol/L BUN (7-17) mg/dL Creatinine (0.52-1.04) mg/dL Glucose (74-99) mg/dL AST (14-36) U/L TSH 75.900 H (0.465-4.680) mIU/L Free T4 <0.07 L (0.78-2.19) ng/dL Urine Protein (Negative) Urine Nitrite (Negative) Ur Leukocyte Esterase (Negative) Urine WBC (0-5) /hpf Urine Bacteria (None) /hpf Cortisol 14.0 - Imaging and Cardiology MRI - head: image reviewed (Negative DWI. Scattered T2/FLAIR signal hyperintensities c/w small vessel changes. No ICH. Nil acute.) Carotid duplex 02/24/19. No BICA stenosis. EEG 02/24/19. Normal awake EEG. I have reviewed neuroimages myself. Assessment and Plan Assessment: Dizziness/syncope- so far found to be hypothyroid and confounded by GBP in the setting of renal insufficiency Functional/non-physiologic exam Head tremor Pain med seeking behavior Plan: -Carotid duplex, EEG and MRI Brain all unrevealing -Morning cortisol unrevealing -Hypothyroid. Medical management deferred to internal medicine -GBP dose reduced by primary team as CrCl 39ml/min that would allow her a recommended max of 1400mg/day -d/w patient/primary team in detail. All questions answered. -No other neuro testing or inpatient neuro recs at this time. Please call with new ?. Thank you again for this consultation. Time with Patient: Less than 30 (Time spent in direct patient care, greater than 50% of which was spent in [id number] counseling and coordination of care: 25 minutes)
[2019-02-24] MEDS: Buprenorphine Hcl [Belbuca] 150 MCG BUCCAL SCH ×2 (17:24→17:56)
[2019-02-24 20:43] VITALS: RESP 16
[2019-02-24] MEDS ORDERED: MONTELUKAST 10 MG TAB PO SCH (21:00)
[2019-02-24] MEDS: DULoxetine HCL 30 MG CAPSULE.DR PO SCH (21:51)
[2019-02-24] MEDS: MIRTAZAPINE 15 MG TAB PO SCH (21:52)
[2019-02-24] MEDS: LEVOTHYROXINE IVP 100 MCG/5 ML VIAL IV SCH (21:54)
[2019-02-24] MEDS: ENOXAPARIN 40 MG/0.4 ML SYRINGE SQ SCH (21:55)
[2019-02-25] MEDS: traMADol 50 MG TAB PO SCH (03:22)
[2019-02-25 04:47] VITALS: BP 99/57; PULSE 58; TEMP 97.6
[2019-02-25] MEDS: SYMBICORT 160-4.5 MCG INHALER INHALATION SCH (07:25)
[2019-02-25] MEDS: PANTOPRAZOLE 40 MG TABLET PO SCH (09:38)
[2019-02-25] MEDS: ATORVASTATIN 10 MG TAB PO SCH (09:38)
[2019-02-25] MEDS: GABAPENTIN 300 MG CAP PO SCH (09:39)
[2019-02-25] MEDS: FAMOTIDINE 20 MG TAB PO SCH (09:39)
[2019-02-25] MEDS: PROPRANOLOL 10 MG TAB PO SCH (09:39)
[2019-02-25] MEDS: LEVOTHYROXINE IVP 100 MCG/5 ML VIAL IV SCH (09:40)
[2019-02-25] MEDS: TOPIRAMATE 25 MG TAB PO SCH (09:41)
[2019-02-25] MEDS: predniSONE 5 MG TAB PO SCH (09:41)
[2019-02-25] MEDS: TOPIRAMATE 100 MG TAB PO SCH (09:42)
[2019-02-25] MEDS: AMMONIUM LACTATE 12% LOTION 225 GM BTL TOPICAL SCH (09:43)
[2019-02-25] MEDS: Linaclotide [Linzess] 72 MCG PO SCH (09:43)
[2019-02-25] MEDS: Buprenorphine Hcl [Belbuca] 150 MCG BUCCAL SCH (09:45)
--- NOTE | 2019-02-25 10:49 | ECHOF ---
Referral Reason:syncope MEASUREMENTS -------- HEIGHT: 170.2 cm WEIGHT: 59.0 kg BP: 123/73 RVIDd: 2.8 cm (< 3.3) IVSd: 1.1 cm (0.6 - 1.1) LVIDd: 3.2 cm (3.9 - 5.3) LVPWd: 1.1 cm (0.6 - 1.1) IVSs: 1.7 cm LVIDs: 2.0 cm LVPWs: 1.3 cm LA Diam: 2.1 cm (2.7 - 3.8) LAESV Index (A-L): 15.96 ml/m Ao Diam: 4.0 cm (2.0 - 3.7) AV Cusp: 2.2 cm (1.5 - 2.6) MV EXCURSION: 15.228 mm (> 18.000) MV EF SLOPE: 12 mm/s (70 - 150) EPSS: 0.5 cm MV E Chase: 0.57 m/s MV DecT: 283 ms MV A Chase: 0.70 m/s MV E/A Ratio: 0.82 AR PHT: 1217 ms FINDINGS -------- Sinus rhythm. This was a technically adequate study. The left ventricular size is normal. There is borderline concentric left ventricular hypertrophy. Overall left ventricular systolic function is normal with, an EF between 55 - 60 %. The right ventricle is normal in size. Normal LA size by volume 22+/-6 ml/m2. The right atrium is normal in size. Lipomatous Hypertrophy of the atrial septum is present Aortic valve is trileaflet and is mildly thickened. Mild mitral annular calcification present. The tricuspid valve appears structurally normal. The pulmonic valve was not well visualized. The aortic root is dilated measuring 4.0cm. IVC Not well visulized. There is no pericardial effusion. CONCLUSIONS -------- 1. Sinus rhythm. 2. This was a technically adequate study. 3. The left ventricular size is normal. 4. There is borderline concentric left ventricular hypertrophy. 5. Overall left ventricular systolic function is normal with, an EF between 55 - 60 %. 6. The right ventricle is normal in size. 7. Normal LA size by volume 22+/-6 ml/m2. 8. The right atrium is normal in size. 9. Lipomatous Hypertrophy of the atrial septum is present 10. Aortic valve is trileaflet and is mildly thickened. 11. Mild mitral annular calcification present. 12. The tricuspid valve appears structurally normal. 13. The pulmonic valve was not well visualized. 14. The aortic root is dilated measuring 4.0cm. 15. IVC Not well visulized. 16. There is no pericardial effusion. QUANTOMETER OPERATOR: Miriam Retana RDCS
[2019-02-25 11:14] LABS: Calcium 8.5 mg/dL (8.4-10.2); Potassium 3.8 mmol/L (3.5-5.1)
--- NOTE | 2019-02-25 12:06 | P.PN ---
Progress Note - Text Progress Note Date: 02/25/19 Chart reviewed. Cr today 0.9 CrCl estimated at 59. Her GBP may be dosed between 400-1400mg/day according to her renal function. She has had unrevealing MRI Brain, carotid duplex and EEG. I do not propose further neurological testing. She is stable for discharge from an acute neuro standpoint. No further neuro recs at this time. Please call with new ?.
--- NOTE | 2019-02-25 13:46 | P.PN ---
Subjective This is a pleasant 64-year-old female past medical history significant for asthma, COPD, adrenal insufficency, dyslipidemia, hypothyroidism, diaphragmatic myopathy and mild-moderate aortic insufficiency. She follows with Dr. Henson in the office. We have been asked to see her in consultation secondary to dizziness/syncope. She states since Thursday she has passed out up to 40 times. She states these episodes occur while she is standing and exerting herself. She starts to feel lightheaded and then next thing she is on the floor. There has been positive LOC. No room spinning dizziness, chest pain, shortness of breath, nausea, vomiting, palpitations or diaphoresis. She is seen and examined laying flat in bed in no acute distress. She is quite tearful and concerned about her pain medications being weaned down. She saw Dr. Henson in the office in June 2018 and was recommended she undergo extensive evaluation with an Endocronologi st secondary to suspected primary and secondary hypothyroidism. She has not set this up yet. TSH on this admission is 75.9, free T4 less than 0.07 and cortisol 14. She is currently maintained on synthroid 300 mcg daily and states she is compliant. There was a question per the nursing staff regarding a possible arrhythmia. Telemetry tracings reviewed and reveal artifact with no acute arrhythmia. EKG reveals sinus mechanism, low voltage and non-specific T waves. Chest xray reveals elevated hemidiaphragm and bibasilar opacities. Laboratory data reviewed, cardiac enzymes negative 2, TSH 75.9, free T4 less than 0.07, cortisol 14, creatinine 1.36, sodium 144, potassium 4.1, d-dimer 0.52, WBC 9.9, hemoglobin 12.5 and platelets 156. Current daily cardiac medications include propanolol 10 mg 3 times a day which she takes for migraines, lovastatin 20 mg daily and Lasix 40 mg daily which she takes for lower extremity swelling. Most recent echocardiogram obtained in the office June 2018 reveals preserved LV systolic function with ejection fraction 55% and mild to moderate aortic regurgitation. 02/25/2018 Pt is seen and examined up ambulating to take a shower. She has not had any documented syncope. Blood pressure 99/57 heart rate 58 afebrile maintaining oxygen saturation. Laboratory data reviewed, sodium 139, potassium 3.8, creatinine 0.91. Echocardiogram obtained reveals preserved LV systolic function with ejection fraction 55-60% with no valvular abnormalities noted. Telemetry tracings have been unremarkable, no arrhythmia or bradycardia noted. GENERAL: This is a 64-year-old female in no apparent distress at the time of my examination. HEENT: Head is atraumatic, normocephalic. Pupils are equal, round. Sclerae anicteric. Conjunctivae are clear. Mucous membranes of the mouth are moist. Neck is supple. There is no jugular venous distention. No carotid bruit is heard. LUNGS: Clear to auscultation no wheezes, rales or rhonchi. No chest wall tenderness is noted on palpation or with deep breathing. HEART: Regular rate and rhythm without murmurs, rubs or gallops. S1 and S2 heard. EXTREMITIES: No evidence of peripheral edema and no calf tenderness noted. ASSESSMENT Syncope Hypothyroidism, profound Dyslipidemia COPD Gastroesophageal reflux disease PLAN Stable for discharge from a cardiac perspective. Recommend extensive endocronology workup. Follow up with Dr. Henson upon discharge. Nurse Practitioner note has been reviewed, I agree with a documented findings and plan of care. Patient was seen and examined. Objective - Vital Signs Vital signs: Vital Signs Temp 97.6 F 02/25/19 04:46 Pulse 58 L 02/25/19 04:46 Resp 16 02/25/19 07:30 BP 99/57 02/25/19 04:46 Pulse Ox 91 L 02/25/19 12:37 Intake & Output 02/24/19 02/25/19 02/25/19 18:59 06:59 18:59 Intake Total 1425 3010 Balance 1425 3010 Intake: Intake, IV Titration 875 1000 Amount Lactated Ringers 1,000 ml 875 1000 @ 125 mls/hr IV .Q8H HETAL Rx#:[id number] Oral 550 2010 Other: Voiding Method Bedside Commode Bedside Commode Bedside Commode # Voids 2 2 - Labs CBC & Chem 7: 02/23/19 13:00 02/25/19 10:32
--- NOTE | 2019-02-26 16:17 | P.DS ---
Providers Date of admission: 02/23/19 15:12 Expected date of discharge: 02/25/19 Attending physician: Prashant Castro Consults: 02/23/19 15:15 Consult Physician Stat Consulting Provider: Dmitriy Maldonado Consult Reason/Comments: Syncope, dizziness Do you want consulting provider notified?: Yes 02/23/19 19:23 Consult Physician Urgent Consulting Provider: Vasu Goldman Consult Reason/Comments: black outs dizzy falling Do you want consulting provider notified?: Already Contacted 02/24/19 13:53 Consult Physician Routine Consulting Provider: Sofi Machado Consult Reason/Comments: thyroid disorder Do you want consulting provider notified?: Yes Primary care physician: Maikel Johnson [facility] Course: Hospital course: This is a 64-year-old patient who follows a Dr. Maikel Johnson. Patient states that she came back from the cruise about 6 days ago. Since then she been having episodes of passing out. She's had a few episodes. She goes down suddenly. There is no chest pain no palpitation. Patient at baseline uses a cane because of chronic back pain. Patient's daughter had called the nurse Suze would inform me that since patient's 10 months ago, the patient's had been giving a lot of pain medications. Since then she gone to Dr. Johnson's office several times to get and asking for more pain medications. Denies any fever and chills. Appetite is okay. Patient also has had tremors. Sometimes of the head and the body. No obvious seizure activity was reported. Patient represented to the floor was very lethargic sometimes unarousable. 18 had to be called out. Tremors were noted. Seen by neurology. EEG did not show any seizure activity. Patient's symptoms were felt to be classical of Neurontin toxicity in the setting of renal failure. Neurontin dose was cut back. Patient bounced back remarkably well the next day. Also NSAIDs were stopped because of the renal function. Today-had a very limited discussion with the patient, her brother and patient's daughter. All aspects of pain medications are brought down pertaining to the case was discussed. Also discussed why that Neurontin was cut back and patient's definitely more awake and symptoms have resolved. Also discussed with Dr. Daysi Machado from endocrinology who saw the patient. Patient is to go home and a current dose of Synthroid but will be started on different form of Synthroid which she's patient is seen in the office. In the meantime patient is given IV Synthroid. For 2 days Discussion discharge planning more and 35 minutes Consultation: Dr. Goldman from neurology Dr. Daysi Machado from endocrinology Physical examination: VITAL SIGNS: 97.6, 58, 16, 99 / 57, GENERAL: Sitting up, far more awake today EYES: Pupils equal. Conjunctiva normal. HEENT: External appearance of nose and ears normal, oral cavity grossly normal. NECK: JVD not raised; masses not palpable. HEART: First and second heart sounds are normal; no edema. LUNGS: Respiratory rate normal; decreased breath sounds. ABDOMEN: Soft, nontender, liver spleen not palpable, no masses palpable. PSYCH: Awake, answering questions, but anxious. NEUROLOGICAL: No tremors today. MUSCULOSKELETAL: Wasting of some muscles loss of subcutaneous fat INVESTIGATIONS, reviewed in the clinical context: TSH 75 free T4 less than 0.07 Creatinine did come down from 1.36 down to 0.91 Urine drug screen negative Computed tomography scan of the brain unremarkable EEG negative for seizure activity Carotid Doppler-no significant stenosis MRI of the brain-nonspecific white matter demyelination 2-D echocardiogram showed EF of 55-60% Discharge diagnosis: -Acute Neurontin toxicity in the setting of renal failure -Acute renal failure likely ATN from NSAIDs -Hypothyroidism. , Possibly a problem of poor absorption -Moderate persistent asthma -GERD -Hyperlipidemia -Chronic bilateral hemidiaphragmatic paralysis -Hiatal hernia -Chronic hypoxic respiratory failure on home oxygen 3 L -Chronic low back pain Disposition: Home. Patient lives with her brother Patient Condition at Discharge: Stable Plan - Discharge Summary Discharge Rx Participant: Yes New Discharge Prescriptions: New Gabapentin [Neurontin] 300 mg PO TID #90 cap Continue rOPINIRole HCL [Requip] 2 mg PO HS Lovastatin [Mevacor] 20 mg PO DAILY traMADol HCl [Ultram] 50 mg PO QID Albuterol Nebulized [Ventolin Nebulized] 2.5 mg INHALATION RT-QID PRN PRN Reason: Shortness Of Breath predniSONE [Prednisone] 5 mg PO DAILY Ondansetron [Zofran ODT] 8 mg PO Q8HR PRN PRN Reason: Nausea And Vomiting Omeprazole 40 mg PO DAILY Montelukast [Singulair] 10 mg PO HS Mirtazapine [Remeron] 30 mg PO HS Linaclotide [Linzess] 72 mcg PO DAILY Baclofen 10 mg PO QID PRN PRN Reason: Muscle Spasm EPINEPHrine [Epipen 2-Bert] 0.3 mg IM ONCE PRN PRN Reason: Anaphylaxis Ammonium Lactate Lotion [Lac-Hydrin 12% Lotion] 1 applic TOPICAL BID Buprenorphine HCl [Belbuca] 150 mcg BUCCAL Q12H Denosumab [Prolia] 60 mg SQ Q180D DULoxetine HCL [Cymbalta] 30 mg PO HS Budesonide-Formot 160-4.5 Mcg [Symbicort 160-4.5 Mcg Inhaler] 2 puff INHALATION RT-BID Levothyroxine Sodium [Synthroid] 300 mcg PO DAILY Topiramate [Topamax] 100 mg PO BID Topiramate [Topamax] 25 mg PO BID Discontinued Diclofenac Sodium [Voltaren] 75 mg PO BID Famotidine [Pepcid] 40 mg PO BID Furosemide [Lasix] 40 mg PO DAILY Gabapentin 1,200 mg PO BID Propranolol [Inderal] 10 mg PO TID Discharge Medication List Lovastatin [Mevacor] 20 mg PO DAILY 02/14/14 [History] rOPINIRole HCL [Requip] 2 mg PO HS 02/14/14 [History] traMADol HCl [Ultram] 50 mg PO QID 02/14/14 [History] Albuterol Nebulized [Ventolin Nebulized] 2.5 mg INHALATION RT-QID PRN 10/26/15 [History] predniSONE [Prednisone] 5 mg PO DAILY 11/05/15 [History] Baclofen 10 mg PO QID PRN 01/21/17 [History] EPINEPHrine [Epipen 2-Bert] 0.3 mg IM ONCE PRN 01/21/17 [History] Linaclotide [Linzess] 72 mcg PO DAILY 01/21/17 [History] Mirtazapine [Remeron] 30 mg PO HS 01/21/17 [History] Montelukast [Singulair] 10 mg PO HS 01/21/17 [History] Omeprazole 40 mg PO DAILY 01/21/17 [History] Ondansetron [Zofran ODT] 8 mg PO Q8HR PRN 01/21/17 [History] Ammonium Lactate Lotion [Lac-Hydrin 12% Lotion] 1 applic TOPICAL BID 02/23/19 [History] Budesonide-Formot 160-4.5 Mcg [Symbicort 160-4.5 Mcg Inhaler] 2 puff INHALATION RT-BID 02/23/19 [History] Buprenorphine HCl [Belbuca] 150 mcg BUCCAL Q12H 02/23/19 [History] DULoxetine HCL [Cymbalta] 30 mg PO HS 02/23/19 [History] Denosumab [Prolia] 60 mg SQ Q180D 02/23/19 [History] Levothyroxine Sodium [Synthroid] 300 mcg PO DAILY 02/23/19 [History] Topiramate [Topamax] 25 mg PO BID 02/23/19 [History] Topiramate [Topamax] 100 mg PO BID 02/23/19 [History] Gabapentin [Neurontin] 300 mg PO TID #90 cap 02/25/19 [Rx] Follow up Appointment(s)/Referral(s): Gualberto Henson MD [STAFF PHYSICIAN] - 2 Weeks Maikel Johnson MD [Primary Care Provider] - 03/03/19 10:30 am Sofi Machado MD [STAFF PHYSICIAN] - 3 Days (Patient to call Dr. Machado's office Thursday morning to schedule follow up appointment. The office is closed at time of discharge. ) Patient Instructions/Handouts: Gabapentin (By mouth), Syncope (DC), Hypothyroidism (DC) Discharge Disposition: HOME SELF-CARE
== END 2019-02-25 14:51 | disposition home or self-care (01) ==
LOC: EC 11:58 → 3NMEDONC 15:12
PROVIDERS: ADMIT Hospitalist; ATTEND Hospitalist
DX: R55 Syncope and collapse (principal); R29.6 Repeated falls; J44.9 Chronic obstructive pulmonary disease, unspecified; Z99.81 Dependence on supplemental oxygen; E27.40 Unspecified adrenocortical insufficiency; E78.5 Hyperlipidemia, unspecified; K21.9 Gastro-esophageal reflux disease without esophagitis; M81.0 Age-related osteoporosis without current pathological fracture; J96.11 Chronic respiratory failure with hypoxia; M54.5 Low back pain; G47.33 Obstructive sleep apnea (adult) (pediatric); K44.9 Diaphragmatic hernia without obstruction or gangrene; E03.9 Hypothyroidism, unspecified; G43.909 Migraine, unspecified, not intractable, without status migrainosus; G89.29 Other chronic pain; I35.1 Nonrheumatic aortic (valve) insufficiency; N17.0 Acute kidney failure with tubular necrosis; T39.395A Adverse effect of other nonsteroidal anti-inflammatory drugs [NSAID], initial encounter; Z85.828 Personal history of other malignant neoplasm of skin; J98.6 Disorders of diaphragm; W19.XXXA Unspecified fall, initial encounter; Z79.51 Long term (current) use of inhaled steroids; Z79.890 Hormone replacement therapy; Z79.899 Other long term (current) drug therapy; Z88.8 Allergy status to other drugs, medicaments and biological substances; Z88.1 Allergy status to other antibiotic agents; Z91.041 Radiographic dye allergy status; Z88.5 Allergy status to narcotic agent; Z88.0 Allergy status to penicillin; Z91.013 Allergy to seafood; Z90.49 Acquired absence of other specified parts of digestive tract; Z90.710 Acquired absence of both cervix and uterus; Z96.652 Presence of left artificial knee joint; Z80.9 Family history of malignant neoplasm, unspecified; J45.40 Moderate persistent asthma, uncomplicated
CPT/HCPCS: 96376; 96372 ×2; 96374; 96361; 99285; 36415; 94640 ×3; 94760; 95816; 93306; 93005; 85379; 84439; 80053; 80048; 84443; 82533; 84484; 85025; 81001; 80306; 71046; 93880; 70450; 70551; G0378 ×3; J1650 ×2; J7512 ×2

== ENCOUNTER 2019-08-05 15:48 | Inpatient (IN) | payer BC, MEDICARE ==
[2019-08-05] MEDS ORDERED: IPRATROPIUM-ALBUTEROL 3 ML NEB INHALATION STA (16:44)
[2019-08-05] MEDS ORDERED: DEXAMETHASONE SOD PHOSPHATE 10 MG/ML 1 ML VIAL IV STA (16:45)
[2019-08-05] MEDS ORDERED: SODIUM CHLORIDE 0.9% 1,000 ML IV STA (16:47)
--- NOTE | 2019-08-05 16:47 | ED ---
General Adult HPI - General Chief complaint: Shortness of Breath Stated complaint: Sob/weakness Time Seen by Provider: 08/05/19 16:08 Source: patient Mode of arrival: wheelchair Limitations: no limitations - History of Present Illness Initial comments: Dictation was produced using [employer] dictation software. please excuse any grammatical, word or spelling errors. Chief Complaint: 64-year-old female past medical history of COPD, dyslipidemia, pneumonia and asthma presents with pneumonia. History of Present Illness: 64-year-old female she was sent in by her primary care physician. Patient has been treated for pneumonia and respiratory failure since [place] time of last year. Patient had a follow-up appointment today with a primary care physician. She had x-rays performed today which she was told was not looking too good and she was told to come to the emergency department. Patient is a poor historian at this time she presents today with a brother states that patient has been more tired more than usual. She feels been coughing more than usual as well. Patient is oxygen dependent and wears oxygen at home between 3 and 4 L. She reports that patient has enzyme deficiency and thyroid disease. Patient has any fever, chills or night sweats. States that she's been having a minimally productive cough. The ROS documented in this emergency department record has been reviewed and confirmed by me. Those systems with pertinent positive or negative responses have been documented in the HPI. All other systems are other negative and/or noncontributory. PHYSICAL EXAM: General Impression: Alert and oriented x3, not in acute distress HEENT: Normocephalic atraumatic, extra-ocular movements intact, pupils equal and reactive to light bilaterally, mucous membranes moist. Cardiovascular: Heart regular rate and rhythm, S1&S2 audible, no murmurs, rubs or gallops Chest: Diminished lung sounds bilaterally, with end expiratory wheezing Abdomen: Bowel sounds present, abdomen soft, non-tender, non-distended, no organomegaly Musculoskeletal: Pulses present and equal in all extremities, no peripheral edema on generally weak Motor: no focal deficits noted Neurological: CN II-XII grossly intact, no focal motor or sensory deficits noted Skin: Intact with no visualized rashes Psych: Normal affect and mood ED course: 64 y Old female presents with worsening respiratory distress. She has been treated for pneumonia on outpatient basis however has not had any significant improvement in her symptoms. She was brought to emergency Department for inpatient hospitalization. She does have established care with funding coordinator Dr. Trejo. Vital signs upon arrival shows 93% on 4 L his cane, worse vital signs within acceptable limits. Patient's will. Bedside R she does have findings on lung auscultation. Laboratory evaluation obtained. CBC is unremarkable. Coag panel is negative. Metabolic panel is negative. Slight elevation of creatinine. There is some transaminitis however mild. Influenza is negative. Chest x-ray shows atelectasis at the lung bases. Patient reevaluated at bedside found to be in stable medical condition on 4 L nasal cannula her usual home dose. Discussed patient case with Dr. Castro we'll have patient admitted with consultation pulmonology. Patient breathing treatment, corticosteroids and started on antibiotics. Patient will be admitted. EKG interpretation: Ventricular rate 76, normal sinus rhythm,. 192, care study 4, QTC 470. No MO prolongation, no QTC prolongation, no ST or T-wave changes noted. EKG compared to 02/23/2019 showing no changes. Overall, this EKG is unr emarkable - Related Data Home Medications Medication Instructions Recorded Confirmed Lovastatin [Mevacor] 20 mg PO DAILY 02/14/14 02/23/19 rOPINIRole HCL [Requip] 2 mg PO HS 02/14/14 02/23/19 traMADol HCl [Ultram] 50 mg PO QID 02/14/14 02/23/19 Albuterol Nebulized [Ventolin 2.5 mg INHALATION RT-QID PRN 10/26/15 02/23/19 Nebulized] predniSONE [Prednisone] 5 mg PO DAILY 11/05/15 02/23/19 Baclofen 10 mg PO QID PRN 01/21/17 02/23/19 EPINEPHrine [Epipen 2-Bert] 0.3 mg IM ONCE PRN 01/21/17 02/23/19 Linaclotide [Linzess] 72 mcg PO DAILY 01/21/17 02/23/19 Mirtazapine [Remeron] 30 mg PO HS 01/21/17 02/23/19 Montelukast [Singulair] 10 mg PO HS 01/21/17 02/23/19 Omeprazole 40 mg PO DAILY 01/21/17 02/23/19 Ondansetron [Zofran ODT] 8 mg PO Q8HR PRN 01/21/17 02/23/19 Ammonium Lactate Lotion 1 applic TOPICAL BID 02/23/19 02/23/19 [Lac-Hydrin 12% Lotion] Budesonide-Formot 160-4.5 Mcg 2 puff INHALATION RT-BID 02/23/19 02/23/19 [Symbicort 160-4.5 Mcg Inhaler] Buprenorphine HCl [Belbuca] 150 mcg BUCCAL Q12H 02/23/19 02/23/19 DULoxetine HCL [Cymbalta] 30 mg PO HS 02/23/19 02/23/19 Denosumab [Prolia] 60 mg SQ Q180D 02/23/19 02/23/19 Levothyroxine Sodium [Synthroid] 300 mcg PO DAILY 02/23/19 02/23/19 Topiramate [Topamax] 25 mg PO BID 02/23/19 02/23/19 Topiramate [Topamax] 100 mg PO BID 02/23/19 02/23/19 Previous Rx's Medication Instructions Recorded Gabapentin [Neurontin] 300 mg PO TID #90 cap 02/25/19 Allergies Allergy/AdvReac Type Severity Reaction Status Date / Time aspirin Allergy Rash/Hives Verified 02/23/19 13:23 bee pollen Allergy Anaphylaxis Verified 02/23/19 13:23 cefdinir [From Omnicef] Allergy Anaphylaxis Verified 02/23/19 13:23 clarithromycin [From Biaxin] Allergy Anaphylaxis Verified 02/23/19 13:23 ibuprofen [From Advil] Allergy Anaphylaxis Verified 02/23/19 13:23 Iodinated Contrast Media Allergy SWELLING Verified 02/23/19 13:23 [Iodinated Contrast Media - OF THROAT IV Dye] iodine Allergy Anaphylaxis Verified 02/23/19 13:23 omalizumab [From Xolair] Allergy Anaphylaxis Verified 02/23/19 13:23 Penicillins Allergy Dyspnea Verified 02/23/19 13:23 prochlorperazine edisylate Allergy Rash/Hives Verified 02/23/19 13:23 [From Compazine] prochlorperazine maleate Allergy Rash/Hives Verified 02/23/19 13:23 [From Compazine] shellfish derived Allergy Anaphylaxis Verified 02/23/19 13:23 Review of Systems ROS Statement: Those systems with pertinent positive or pertinent negative responses have been documented in the HPI. ROS Other: All systems not noted in ROS Statement are negative. 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, adrenal insufficiency, hiatal hernia, basal cell carcinoma of the skin, uses cane , uses oxygen continous at 3L, irregular bowel movements, hx endocarditis,osteoporosis, hx fx spine agammaglobulinemia History of Any Multi-Drug Resistant Organisms: None Reported Past Surgical History: Adenoidectomy, Appendectomy, Back Surgery, Breast Surgery, Cholecystectomy, Hysterectomy, Joint Replacement, Tonsillectomy Additional Past Surgical History / Comment(s): left knee replacement, left knee arthroscopy, breast biopsy-rt, mino breast reduction, hemorrhoidectomy Past Anesthesia/Blood Transfusion Reactions: Family History of Problems w/ Anesthesia, Motion Sickness Additional Past Anesthesia/Blood Transfusion Reaction / Comment(s): "brother was awake during whole surgery" Past Psychological History: No Psychological Hx Reported Smoking Status: Never smoker Past Alcohol Use History: None Reported Past Drug Use History: None Reported - Past Family History Mother Family Medical History: Cancer Father Family Medical History: Cancer General Exam Limitations: no limitations Course Vital Signs 08/05/19 08/05/19 08/05/19 15:53 15:58 16:58 Temperature 98.9 F Pulse Rate 81 70 72 Respiratory 18 20 18 Rate Blood Pressure 123/83 115/84 115/80 O2 Sat by Pulse 93 L 93 L 94 L Oximetry 08/05/19 08/05/19 17:13 17:19 Temperature Pulse Rate 78 72 Respiratory Rate Blood Pressure O2 Sat by Pulse Oximetry Medical Decision Making - Lab Data Result diagrams: 08/05/19 16:46 08/05/19 16:46 Lab Results 08/05/19 08/05/19 08/05/19 Range/Units 16:46 16:46 16:46 WBC 5.2 (3.8-10.6) k/uL RBC 3.99 (3.80-5.40) m/uL Hgb 12.9 (11.4-16.0) gm/dL Hct 38.4 (34.0-46.0) % MCV 96.4 (80.0-100.0) fL MCH 32.2 (25.0-35.0) pg MCHC 33.4 (31.0-37.0) g/dL RDW 16.5 H (11.5-15.5) % Plt Count 195 (150-450) k/uL Neutrophils % 76 % Lymphocytes % 15 % Monocytes % 6 % Eosinophils % 1 % Basophils % 2 % Neutrophils # 3.9 (1.3-7.7) k/uL Lymphocytes # 0.8 L (1.0-4.8) k/uL Monocytes # 0.3 (0-1.0) k/uL Eosinophils # 0.0 (0-0.7) k/uL Basophils # 0.1 (0-0.2) k/uL Anisocytosis Slight PT (9.0-12.0) sec INR (<1.2) APTT (22.0-30.0) sec Sodium 140 (137-145) mmol/L Potassium 4.6 (3.5-5.1) mmol/L Chloride 107 (98-107) mmol/L Carbon Dioxide 23 (22-30) mmol/L Anion Gap 10 mmol/L BUN 15 (7-17) mg/dL Creatinine 1.17 H (0.52-1.04) mg/dL Est GFR (CKD-EPI)AfAm 57 (>60 ml/min/1.73 sqM) Est GFR (CKD-EPI)NonAf 49 (>60 ml/min/1.73 sqM) Glucose 99 (74-99) mg/dL Calcium 8.9 (8.4-10.2) mg/dL Magnesium 2.1 (1.6-2.3) mg/dL Total Bilirubin 0.7 (0.2-1.3) mg/dL AST 88 H (14-36) U/L ALT 46 H (4-34) U/L Alkaline Phosphatase 57 (38-126) U/L NT-Pro-B Natriuret Pep 44 pg/mL Total Protein 8.4 H (6.3-8.2) g/dL Albumin 4.8 (3.5-5.0) g/dL Influenza Type A RNA (Not Detectd) Influenza Type B (PCR) (Not Detectd) 08/05/19 08/05/19 Range/Units 16:46 17:00 WBC (3.8-10.6) k/uL RBC (3.80-5.40) m/uL Hgb (11.4-16.0) gm/dL Hct (34.0-46.0) % MCV (80.0-100.0) fL MCH (25.0-35.0) pg MCHC (31.0-37.0) g/dL RDW (11.5-15.5) % Plt Count (150-450) k/uL Neutrophils % % Lymphocytes % % Monocytes % % Eosinophils % % Basophils % % Neutrophils # (1.3-7.7) k/uL Lymphocytes # (1.0-4.8) k/uL Monocytes # (0-1.0) k/uL Eosinophils # (0-0.7) k/uL Basophils # (0-0.2) k/uL Anisocytosis PT 10.3 (9.0-12.0) sec INR 1.0 (<1.2) APTT 24.8 (22.0-30.0) sec Sodium (137-145) mmol/L Potassium (3.5-5.1) mmol/L Chloride (98-107) mmol/L Carbon Dioxide (22-30) mmol/L Anion Gap mmol/L BUN (7-17) mg/dL Creatinine (0.52-1.04) mg/dL Est GFR (CKD-EPI)AfAm (>60 ml/min/1.73 sqM) Est GFR (CKD-EPI)NonAf (>60 ml/min/1.73 sqM) Glucose (74-99) mg/dL Calcium (8.4-10.2) mg/dL Magnesium (1.6-2.3) mg/dL Total Bilirubin (0.2-1.3) mg/dL AST (14-36) U/L ALT (4-34) U/L Alkaline Phosphatase (38-126) U/L NT-Pro-B Natriuret Pep pg/mL Total Protein (6.3-8.2) g/dL Albumin (3.5-5.0) g/dL Influenza Type A RNA Not Detected (Not Detectd) Influenza Type B (PCR) Not Detected (Not Detectd) Disposition Clinical Impression: Respiratory failure Disposition: ADMITTED IP TO THIS HOSP Condition: Fair Referrals: Maikel Johnson MD [Primary Care Provider] - 1-2 days Decision Time: 18:01
[2019-08-05 17:16] LABS: Partial Thromboplastin Time 24.8 sec (22.0-30.0); Prothrombin Time 10.3 sec (9.0-12.0)
[2019-08-05 17:17] LABS: Anisocytosis Slight; Basophils # (A) 0.1 k/uL (0-0.2); Basophils % (A) 2 %; Eosinophils % (A) 1 %; HCT 38.4 % (34.0-46.0); HGB 12.9 gm/dL (11.4-16.0); Lymphocytes # (A) 0.8 k/uL (1.0-4.8); Lymphocytes % (A) 15 %; MCH 32.2 pg (25.0-35.0); MCHC 33.4 g/dL (31.0-37.0); MCV 96.4 fL (80.0-100.0); Mean Platelet Volume 11.1; Monocytes # (A) 0.3 k/uL (0-1.0); Monocytes % (A) 6 %; Neutrophils # (A) 3.9 k/uL (1.3-7.7); Neutrophils % (A) 76 %; Platelet Count 195 k/uL (150-450); RBC 3.99 m/uL (3.80-5.40); RDW 16.5 % (11.5-15.5); WBC 5.2 k/uL (3.8-10.6)
[2019-08-05 17:32] LABS: Albumin 4.8 g/dL (3.5-5.0); Calcium 8.9 mg/dL (8.4-10.2); Magnesium 2.1 mg/dL (1.6-2.3); Potassium 4.6 mmol/L (3.5-5.1); Total Bilirubin 0.7 mg/dL (0.2-1.3); Total Protein 8.4 g/dL (6.3-8.2)
--- NOTE | 2019-08-05 17:43 | XR ---
EXAMINATION TYPE: XR chest 2V DATE OF EXAM: 08/05/2019 COMPARISON: 02/23/2019 HISTORY: Hypoxemia TECHNIQUE: FINDINGS: There is elevation of both diaphragms. There is atelectasis at the lung bases. There is no heart failure. Bony thorax is intact. IMPRESSION: There is significant atelectasis at the lung bases and very poor inspiration. No change. This could relate to bilateral diaphragm paralysis.
[2019-08-05] MEDS ORDERED: LEVOFLOXACIN 750 MG TAB PO STA (17:57)
[2019-08-05] MEDS ORDERED: NALOXONE 0.4 MG/ML 1 ML VIAL IV PRN (17:58)
[2019-08-05] MEDS ORDERED: ACETAMINOPHEN TAB 325 MG TAB PO PRN (17:58)
[2019-08-05] MEDS: SODIUM CHLORIDE 0.9% 1,000 ML IV SCH (18:25)
[2019-08-05] MEDS ORDERED: BACLOFEN 10 MG TAB PO PRN (20:03)
[2019-08-05] MEDS ORDERED: ONDANSETRON ODT 8 MG TAB.RAPDIS PO PRN (20:03)
[2019-08-05] MEDS ORDERED: BENZONATATE 100 MG CAP PO PRN (20:03)
[2019-08-05] MEDS: BUPRENORPHINE HCL 150 MCG SUBLINGUAL SCH (21:59)
[2019-08-05] MEDS: GABAPENTIN 300 MG CAP PO SCH (22:09)
[2019-08-05] MEDS: MONTELUKAST 10 MG TAB PO SCH (22:10)
[2019-08-05] MEDS: traMADol 50 MG TAB PO SCH (22:10)
[2019-08-05] MEDS: MIRTAZAPINE 15 MG TAB PO SCH (22:10)
[2019-08-05] MEDS: TOPIRAMATE 100 MG TAB PO SCH (22:10)
[2019-08-05] MEDS: TOPIRAMATE 25 MG TAB PO SCH (22:37)
[2019-08-05] MEDS: ETODOLAC 400 MG TAB PO SCH (22:37)
[2019-08-05] MEDS: DULoxetine HCL 30 MG CAPSULE.DR PO SCH (22:37)
[2019-08-06] MEDS ORDERED: IPRATROPIUM-ALBUTEROL 3 ML NEB INHALATION PRN (01:45)
[2019-08-06] MEDS: IPRATROPIUM-ALBUTEROL 3 ML NEB INHALATION SCH ×5 (01:47→20:49)
[2019-08-06] MEDS: methylPREDNISolone SOD SUCCI 40 MG/ML 1 ML VIAL IV SCH ×2 (02:04→09:28)
[2019-08-06] MEDS: LEVOTHYROXINE 75 MCG TAB PO SCH (04:59)
[2019-08-06] MEDS: SODIUM CHLORIDE 0.9% 1,000 ML IV SCH ×2 (05:00→17:11)
[2019-08-06] MEDS: INSULIN ASPART (NovoLOG) 100 UNIT/ML VIAL SQ SCH ×4 (08:58→20:53)
[2019-08-06] MEDS: traMADol 50 MG TAB PO SCH ×4 (09:28→21:45)
[2019-08-06] MEDS: ATORVASTATIN 10 MG TAB PO SCH (09:29)
[2019-08-06] MEDS: TOPIRAMATE 100 MG TAB PO SCH ×2 (09:29→21:45)
[2019-08-06] MEDS: TOPIRAMATE 25 MG TAB PO SCH ×2 (09:29→21:45)
[2019-08-06] MEDS: ETODOLAC 400 MG TAB PO SCH ×2 (09:29→21:45)
[2019-08-06] MEDS: GABAPENTIN 300 MG CAP PO SCH ×2 (09:29→21:45)
[2019-08-06] MEDS: BUPRENORPHINE HCL 150 MCG SUBLINGUAL SCH ×3 (10:11→23:49)
[2019-08-06 12:14] LABS: Glucose,Whole Blood 90 mg/dL (75-99)
[2019-08-06] MEDS ORDERED: ONDANSETRON 4 MG/2 ML VIAL IVP PRN (12:24)
--- NOTE | 2019-08-06 12:26 | P.HPIM ---
History of Present Illness H&P Date: 08/06/19 Chief Complaint: shortness of breath Patient is a 64-year-old female with a past medical history of COPD, chronic hypoxic respiratory failure on 3.5-4 L nasal cannula, chronic pain, and agranulocytosis who presented to the emergency department at the direction of Dr Mia Johnson for failed outpatient treatment of upper respiratory tract infection and COPD exacerbation. In the ER she underwent an extensive evaluation. Initial vital signs within normal limits. Initial laboratory analysis was unremarkable other than a mildly elevated AST and ALT or near her baseline, and a mildly elevated creatinine which is scantly near her baseline. Influenza was negative. Chest x-ray as reviewed by myself demonstrates elevation of both hemidiaphragms with fluid in the right major fissure and atelectasis or infiltrate bilaterally. In the ER she was given a dose of Levaquin, Solu- Medrol, bronchodilators. She was admitted for further monitoring. Pulmonology was consulted. Patient seen and examined at bedside. She reports that she has been ill since with an upper respiratory tract infection. Outpatient she isn't taking a prednisone taper as well as Bactrim daily. Chronically she is on Bactrim Thursday and Thursday through Dr. Steven. She states that she has difficulty with infections due to her great agranulocytosis and that she takes IVIG weekly. She reports cough with increased sputum production that is [place] with red streaks. She has had worsening wheezing and shortness of breath from her normal. She is feeling very weak and tired with decreased appetitie. She lost 5 pounds in 4 days. She is having some chest pain with coughing and deep inspiration. At home she had a fever of 101 on 08/05/19 and has been getting the cold sweats. No recent travel. No sick contacts. Last saw Dr. Steven in April 2019. Just over all feeling allan out. Review of Systems Pertinent positives and negatives as discussed in HPI, a complete review of systems was performed and all other systems are negative. 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, adrenal insufficiency, hiatal hernia, basal cell carcinoma of the skin, uses cane , uses oxygen continous at 3L, irregular bowel movements, hx endocarditis,osteoporosis, hx fx spine agammaglobulinemia History of Any Multi-Drug Resistant Organisms: None Reported Past Surgical History: Adenoidectomy, Appendectomy, Back Surgery, Breast Surgery, Cholecystectomy, Hysterectomy, Joint Replacement, Tonsillectomy Additional Past Surgical History / Comment(s): left knee replacement, left knee arthroscopy, breast biopsy-rt, mino breast reduction, hemorrhoidectomy, back surgery fusion with additional surgery X1, Past Anesthesia/Blood Transfusion Reactions: Family History of Problems w/ Anesthesia, Motion Sickness Additional Past Anesthesia/Blood Transfusion Reaction / Comment(s): "brother was awake during whole surgery" Past Psychological History: No Psychological Hx Reported Smoking Status: Never smoker Past Alcohol Use History: None Reported Past Drug Use History: None Reported Additional History: Brother lives with her, uses a cane, has O2 at 3.5 to 4 L, has a nebulizer. - Past Family History Mother Family Medical History: Cancer Father Family Medical History: Cancer Medications and Allergies Home Medications Medication Instructions Recorded Confirmed Type Lovastatin [Mevacor] 20 mg PO DAILY 02/14/14 08/05/19 History rOPINIRole HCL [Requip] 2 mg PO HS 02/14/14 08/05/19 History traMADol HCl [Ultram] 50 mg PO QID 02/14/14 08/05/19 History predniSONE [Prednisone] 5 mg PO DAILY@1200 11/05/15 08/05/19 History Baclofen 10 mg PO QID PRN 01/21/17 08/05/19 History Mirtazapine [Remeron] 30 mg PO HS 01/21/17 08/05/19 History Montelukast [Singulair] 10 mg PO HS 01/21/17 08/05/19 History Ondansetron [Zofran ODT] 8 mg PO Q8HR PRN 01/21/17 08/05/19 History Buprenorphine HCl [Belbuca] 150 mcg BUCCAL Q12H 02/23/19 08/05/19 History DULoxetine HCL [Cymbalta] 30 mg PO HS 02/23/19 08/05/19 History Levothyroxine Sodium [Synthroid] 300 mcg PO DAILY 02/23/19 08/05/19 History Topiramate [Topamax] 25 mg PO BID 02/23/19 08/05/19 History Topiramate [Topamax] 100 mg PO BID 02/23/19 08/05/19 History Benzonatate [Tessalon Perles] 200 mg PO TID PRN 08/05/19 08/05/19 History Diclofenac Sodium [Voltaren] 75 mg PO BID 08/05/19 08/05/19 History Gabapentin [Neurontin] 300 mg PO BID 08/05/19 08/05/19 History Hizentra Home Infusion 1 dose SQ Q14D 08/05/19 08/05/19 History Meclizine HCl 25 mg PO TID PRN 08/05/19 08/05/19 History Sulfamethox-Tmp 800-160Mg [Bactrim 1 tab PO MOWEFR 08/05/19 08/05/19 History DS 800-160 mg] Sulfamethox-Tmp 800-160Mg [Bactrim 1 tab PO Q12HR 08/05/19 08/05/19 History DS 800-160 mg] predniSONE See Taper PO DIRECTED 08/05/19 08/05/19 History Allergies Allergy/AdvReac Type Severity Reaction Status Date / Time aspirin Allergy Rash/Hives Verified 08/05/19 18:28 bee pollen Allergy Anaphylaxis Verified 08/05/19 18:28 cefdinir [From Omnicef] Allergy Anaphylaxis Verified 08/05/19 18:28 clarithromycin [From Biaxin] Allergy Anaphylaxis Verified 08/05/19 18:28 ibuprofen [From Advil] Allergy Anaphylaxis Verified 08/05/19 18:28 Iodinated Contrast Media Allergy SWELLING Verified 08/05/19 18:28 [Iodinated Contrast Media - OF THROAT IV Dye] iodine Allergy Anaphylaxis Verified 08/05/19 18:28 omalizumab [From Xolair] Allergy Anaphylaxis Verified 08/05/19 18:28 Penicillins Allergy Dyspnea Verified 08/05/19 18:28 prochlorperazine edisylate Allergy Rash/Hives Verified 08/05/19 18:28 [From Compazine] prochlorperazine maleate Allergy Rash/Hives Verified 08/05/19 18:28 [From Compazine] shellfish derived Allergy Anaphylaxis Verified 08/05/19 18:28 Physical Exam Osteopathic Statement: *. No significant issues noted on an osteopathic structural exam other than those noted in the History and Physical/Consult. Vitals: Vital Signs Temp Pulse Pulse Resp BP BP Pulse Ox 08/06/19 07:39 77 08/06/19 07:25 74 08/06/19 07:00 97.7 F 102 H 20 126/86 92 L 08/06/19 02:04 68 16 92 L 08/06/19 01:59 80 08/06/19 01:51 80 08/06/19 00:56 98.9 F 73 20 117/75 90 L 08/05/19 19:16 98.8 F 67 18 96/71 96 08/05/19 18:00 65 20 115/81 96 08/05/19 17:30 71 16 115/80 96 08/05/19 17:19 72 08/05/19 17:13 78 08/05/19 17:00 72 18 115/84 97 08/05/19 16:58 72 18 115/80 94 L 08/05/19 16:30 75 18 115/84 98 08/05/19 16:12 76 18 99 08/05/19 15:58 70 20 115/84 93 L 08/05/19 15:53 98.9 F 81 18 123/83 93 L Intake and Output 08/05/19 08/06/19 08/06/19 22:59 06:59 14:59 Intake Total 800 Balance 800 Intake: Intake, IV Titration 800 Amount Sodium Chloride 0.9% 1, 800 000 ml @ 100 mls/hr IV . Q10H [facility] Rx#:[id number] Other: Voiding Method Toilet Weight 62.142 kg General: Ill appearing, mild distress secondary to pain, appears older than stated age, normal weight Derm: no unusual rashes/lesions no unusual ecchymoses, warm, dry Head: atraumatic, normocephalic, symmetric Eyes: EOMI, no lid lag, anicteric sclera, pupils equal round reactive to light ENT: Nose and ears atraumatic, no thrush, no pharyngeal erythema Neck: No thyromegaly, no cervical lymphadenopathy, trachea midline, supple Mouth: no lip lesion, mucus membranes moist Cardiovascular: S1S2 reg, no murmur, positive posterior tibial pulse bilateral, no edema, capillary refill less than 2 seconds Lungs: Wheeze bilaterally, decreased air movement at the bases , no accessory muscle use Abdominal: soft, nontender to palpation, no guarding, no appreciable organomegaly, normal bowel sounds Ext: no gross muscle atrophy, muscle strength 4 out of 5 in all 4 extremities grossly, no contractures, Neuro: CN II-XI grossly intact, light touch intact all 4 extremities, Psych: Alert, oriented, slowed thinking Results CBC & Chem 7: 08/05/19 16:46 08/05/19 16:46 Labs: Abnormal Lab Results - Last 24 Hours (Table) 08/05/19 08/05/19 Range/Units 16:46 16:46 RDW 16.5 H (11.5-15.5) % Lymphocytes # 0.8 L (1.0-4.8) k/uL Creatinine 1.17 H (0.52-1.04) mg/dL AST 88 H (14-36) U/L ALT 46 H (4-34) U/L Total Protein 8.4 H (6.3-8.2) g/dL Chest x-ray: report reviewed, image reviewed Thrombosis Risk Factor Assmnt - DVT/VTE Prophylaxis DVT/VTE Prophylaxis: Pharmacologic Prophylaxis ordered - Choose All That Apply Any of the Below Risk Factors Present?: Yes Each Factor Represents 1 point: Abnormal pulmonary function (COPD) Other Risk Factors: Yes Each Risk Factor Represents 2 Points: Age 61-74 years Other congenital or acquired thrombophilia - If yes, enter type in comment: No Thrombosis Risk Factor Assessment Total Risk Factor Score: 3 Thrombosis Risk Factor Assessment Level: Moderate Risk Assessment and Plan Assessment: Acute bronchitis with acute exacerbation of COPD, failed outpatient treatment in conjunction with chronic hypoxic respiratory failure and agammaglobulinemia -IV Levaquin secondary to multiple ALLERGIES and having failed Bactrim therapy -Add budesonide and aformeterol continue with DuoNeb therapy -Solu-Medrol -Sputum culture -Pulmonary hygiene -Consult pulmonary -Consult infectious disease -Mucinex and Tessalon Perles Adrenal insufficiency -Does not require chronic steroids at home -Monitor for development of hypotension -Do not anticipate this to be a problem on Solu-Medrol Chronic deconditioning -PT/OT evaluation -Fall precautions -Frequent ambulation GERD -PPI use with steroids Chronic: Irregular bowel movements Hiatal hernia Osteoporosis Dyslipidemia The patient is admitted with an anticipated greater than 2 midnight stay for evaluation of COPD exacerbation with acute bronchitis, failed outpatient treatment. Surrogate decision-maker: Daughter CODE STATUS:Full, will discuss with daughter DVT prophylaxis: Heparin Discussed with: Patient, nursing Anticipated discharge date: 2-[address]: home with home health A total of 65 minutes was spent on the care of this complex patient more than 50% of the time was spent in counseling and care coordination.
[2019-08-06] MEDS: guaiFENesin 600 MG TABLET.ER PO SCH ×2 (12:49→21:45)
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
[2019-08-06 14:09] LABS: ABG Base Excess -5.8 mmol/L; ABG HCO3 19 mmol/L (21-25); ABG Oxygen Saturation 89.2 % (94-97); ABG PCO2 31 mmHg (35-45); ABG TCO2 20 mmol/L (19-24); Allen Test Performed? Yes
[2019-08-06 14:14] LABS: ABG PO2 56 mmHg (83-108)
[2019-08-06 16:45] LABS: Glucose,Whole Blood 93 mg/dL (75-99)
[2019-08-06] MEDS: HYDROCORTISONE SUCCINATE 100 MG/2 ML VIAL IV SCH ×2 (17:11→23:49)
[2019-08-06] MEDS: LEVOFLOXACIN 750MG-D5W PMX 750 MG in DEXTROSE/WATER 1 150ML.BAG IVPB SCH (17:11)
[2019-08-06] MEDS: FORMOTEROL FUMARATE 20 MCG/2 ML NEBU INHALATION SCH (20:49)
[2019-08-06] MEDS: BUDESONIDE 1 MG/2 ML NEBU INHALATION SCH (20:49)
[2019-08-06 20:54] LABS: Glucose,Whole Blood 83 mg/dL (75-99)
[2019-08-06] MEDS: MIRTAZAPINE 15 MG TAB PO SCH (21:45)
[2019-08-06] MEDS: MONTELUKAST 10 MG TAB PO SCH (21:45)
[2019-08-06] MEDS: DULoxetine HCL 30 MG CAPSULE.DR PO SCH (21:45)
--- NOTE | 2019-08-06 23:47 | P.CONS ---
History of Present Illness - Reason for Consult Consult date: 08/06/19 Pneumonia and immunodeficency Requesting physician: Gricelda Sullivan - Chief Complaint shortness of breath and cough x 2 weeks - History of Present Illness Patient is a 64-year-old female with a past medical history significant for chronic variable immunodeficiency for which the patient uses subcu immunoglobulin injection every 2 weeks last dose has been on Thursday patient also have a history of bilateral diaphragm paralysis with chronic elevation of the hemidiaphragm, patient presented to the ER at [facility] with chief complaints of respiratory illness that apparently has been going on since , patient main symptom has been increasing shortness of breath patient also have a cough which is moderate intensity with occasional sputum production yellowish to dark no hemoptysis patient denies having any chest pain and denies having any URI symptoms the patient did have some chills but denies high-grade fever with the symptom had the patient was evaluated by the ER physician on arrival to the ER patient did have a chest x- ray which shows significant atelectasis at lung bases and very poor inspiratory effort no change this could relate to bilateral diaphragm paralysis the patient did not have any fever and her oxygen saturation has been in the 90s influenza serology was negative and her white count was normal patient been started on bronchodilator steroid Levaquin admitted to hospital infectious has been consulted for further recommendation regarding antibiotics and concern for immunodeficiency state. 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, adrenal insufficiency, hiatal hernia, basal cell carcinoma of the skin, uses cane , uses oxygen continous at 3L, irregular bowel movements, hx endocarditis,osteoporosis, hx fx spine agammaglobulinemia History of Any Multi-Drug Resistant Organisms: None Reported Past Surgical History: Adenoidectomy, Appendectomy, Back Surgery, Breast Surgery, Cholecystectomy, Hysterectomy, Joint Replacement, Tonsillectomy Additional Past Surgical History / Comment(s): left knee replacement, left knee arthroscopy, breast biopsy-rt, mino breast reduction, hemorrhoidectomy, back surgery fusion with additional surgery X1, Past Anesthesia/Blood Transfusion Reactions: Family History of Problems w/ Anesthesia, Motion Sickness Additional Past Anesthesia/Blood Transfusion Reaction / Comm: "brother was awake during whole surgery" Past Psychological History: No Psychological Hx Reported Smoking Status: Never smoker Past Alcohol Use History: None Reported Past Drug Use History: None Reported - Past Family History Mother Family Medical History: Cancer Father Family Medical History: Cancer Medications and Allergies Home Medications Medication Instructions Recorded Confirmed Type Lovastatin [Mevacor] 20 mg PO DAILY 02/14/14 08/05/19 History rOPINIRole HCL [Requip] 2 mg PO HS 02/14/14 08/05/19 History traMADol HCl [Ultram] 50 mg PO QID 02/14/14 08/05/19 History predniSONE [Prednisone] 5 mg PO DAILY@1200 11/05/15 08/05/19 History Baclofen 10 mg PO QID PRN 01/21/17 08/05/19 History Mirtazapine [Remeron] 30 mg PO HS 01/21/17 08/05/19 History Montelukast [Singulair] 10 mg PO HS 01/21/17 08/05/19 History Ondansetron [Zofran ODT] 8 mg PO Q8HR PRN 01/21/17 08/05/19 History Buprenorphine HCl [Belbuca] 150 mcg BUCCAL Q12H 02/23/19 08/05/19 History DULoxetine HCL [Cymbalta] 30 mg PO HS 02/23/19 08/05/19 History Levothyroxine Sodium [Synthroid] 300 mcg PO DAILY 02/23/19 08/05/19 History Topiramate [Topamax] 25 mg PO BID 02/23/19 08/05/19 History Topiramate [Topamax] 100 mg PO BID 02/23/19 08/05/19 History Benzonatate [Tessalon Perles] 200 mg PO TID PRN 08/05/19 08/05/19 History Diclofenac Sodium [Voltaren] 75 mg PO BID 08/05/19 08/05/19 History Gabapentin [Neurontin] 300 mg PO BID 08/05/19 08/05/19 History Hizentra Home Infusion 1 dose SQ Q14D 08/05/19 08/05/19 History Meclizine HCl 25 mg PO TID PRN 08/05/19 08/05/19 History Sulfamethox-Tmp 800-160Mg [Bactrim 1 tab PO MOWEFR 08/05/19 08/05/19 History DS 800-160 mg] Sulfamethox-Tmp 800-160Mg [Bactrim 1 tab PO Q12HR 08/05/19 08/05/19 History DS 800-160 mg] predniSONE See Taper PO DIRECTED 08/05/19 08/05/19 History Allergies Allergy/AdvReac Type Severity Reaction Status Date / Time aspirin Allergy Rash/Hives Verified 08/05/19 18:28 bee pollen Allergy Anaphylaxis Verified 08/05/19 18:28 cefdinir [From Omnicef] Allergy Anaphylaxis Verified 08/05/19 18:28 clarithromycin [From Biaxin] Allergy Anaphylaxis Verified 08/05/19 18:28 ibuprofen [From Advil] Allergy Anaphylaxis Verified 08/05/19 18:28 Iodinated Contrast Media Allergy SWELLING Verified 08/05/19 18:28 [Iodinated Contrast Media - OF THROAT IV Dye] iodine Allergy Anaphylaxis Verified 08/05/19 18:28 omalizumab [From Xolair] Allergy Anaphylaxis Verified 08/05/19 18:28 Penicillins Allergy Dyspnea Verified 08/05/19 18:28 prochlorperazine edisylate Allergy Rash/Hives Verified 08/05/19 18:28 [From Compazine] prochlorperazine maleate Allergy Rash/Hives Verified 08/05/19 18:28 [From Compazine] shellfish derived Allergy Anaphylaxis Verified 08/05/19 18:28 Physical Exam Vitals: Vital Signs Temp Pulse Pulse Resp BP Pulse Ox 08/06/19 21:11 71 08/06/19 21:02 71 08/06/19 20:49 71 08/06/19 19:05 97.9 F 70 19 105/69 93 L 08/06/19 16:50 66 08/06/19 16:42 66 08/06/19 15:00 98.2 F 64 15 130/78 92 L 08/06/19 11:43 84 08/06/19 11:33 84 08/06/19 07:39 77 08/06/19 07:25 74 08/06/19 07:00 97.7 F 102 H 20 126/86 92 L 08/06/19 02:04 68 16 92 L 08/06/19 01:59 80 08/06/19 01:51 80 08/06/19 00:56 98.9 F 73 20 117/75 90 L Intake and Output 08/06/19 08/06/19 08/07/19 14:59 22:59 06:59 Intake Total 540 Balance 540 Intake: Intake, IV Titration 540 Amount Sodium Chloride 0.9% 1, 540 000 ml @ 100 mls/hr IV . Q10H [facility] Rx#:[id number] GENERAL DESCRIPTION: Middle-aged female lying in bed, no distress. No tachypnea or accessory muscle of respiration use. HEENT: Shows Pallor , no scleral icterus. Oral mucous membrane is dry. NECK: Trachea central, no thyromegaly. LUNGS: Unlabored breathing. Decreased breath sound at the base. No wheeze or crackle. HEART: S1, S2, regular rate and rhythm. ABDOMEN: Soft, no tenderness , guarding or rigidity EXTREMITIES: No edema of feet. SKIN: No rash, no masses palpable. NEUROLOGICAL: The patient is awake, alert, oriented x3, mood and affect normal. Results CBC & Chem 7: 08/05/19 16:46 08/05/19 16:46 Labs: Abnormal Lab Results - Last 24 Hours (Table) 08/06/19 Range/Units 14:06 ABG pCO2 31 L (35-45) mmHg ABG pO2 56 L* (83-108) mmHg ABG HCO3 19 L (21-25) mmol/L ABG O2 Saturation 89.2 L (94-97) % Microbiology - Last 24 Hours (Table) 08/05/19 16:46 Blood Culture - Preliminary Blood No Growth after 24 hours Assessment and Plan Assessment: patient presented to the hospital with increasing shortness of breath and cough congestion that has been going on for almost 2 weeks now apparently failing outpatient Bactrim DS therapy with concern for possible COPD exacerbation with tracheobronchitis clinically not behaving as pneumonia in this patient with no fever no elevated white count no significant consolidation has been noticed on the chest x-ray patient to have underlying common variable immunodeficiency and concern for rapid deterioration of any infectious process (1) Immunodeficiency Current Visit: Yes Status: Acute Code(s): D84.9 - IMMUNODEFICIENCY, UNSPECIFIED SNOMED Code(s): 426297372 (2) Tracheobronchitis Current Visit: Yes Status: Acute Code(s): J40 - BRONCHITIS, NOT SPECIFIED ACUTE OR CHRONIC SNOMED Code(s): 04860603 Plan: 1-we will check immunoglobulin G,A and M levels 2-obtain a sputum for Gram stain and culture 3 Levaquin 750 mg daily-along with steroids and bronchodilators 4-incentive spirometry We will follow on clinical condition and cultures to further adjust medication if needed Thank you for this consultation we will follow the patient along with you Time with Patient: Greater than 30
[2019-08-07] MEDS: IPRATROPIUM-ALBUTEROL 3 ML NEB INHALATION SCH ×6 (00:24→21:01)
[2019-08-07] MEDS: LEVOTHYROXINE 75 MCG TAB PO SCH (05:50)
[2019-08-07] MEDS: SODIUM CHLORIDE 0.9% 1,000 ML IV SCH ×3 (05:51→22:13)
--- NOTE | 2019-08-07 06:31 | XR ---
EXAMINATION TYPE: XR chest 1V portable DATE OF EXAM: 08/07/2019 HISTORY: pneumonia. REFERENCE: Previous study dated 08/05/2019. FINDINGS: There is elevation of both hemidiaphragms. There is colonic interposition present bilateral ly. There is bibasilar atelectasis. Heart size is obscured. I cannot exclude a small right effusion. IMPRESSION: POOR INSPIRATION WITH BIBASILAR ATELECTASIS. I CANNOT EXCLUDE A SMALL RIGHT EFFUSION.
[2019-08-07 06:58] LABS: Glucose,Whole Blood 92 mg/dL (75-99)
[2019-08-07 07:05] LABS: Anisocytosis Slight; HCT 38.1 % (34.0-46.0); Hypochromasia Slight; MCH 31.6 pg (25.0-35.0); MCHC 31.6 g/dL (31.0-37.0); Macrocytosis Slight; Mean Platelet Volume 8.7; Platelet Count 174 k/uL (150-450); RBC 3.81 m/uL (3.80-5.40); RDW 16.7 % (11.5-15.5); WBC 8.7 k/uL (3.8-10.6)
[2019-08-07 07:22] LABS: Calcium 7.5 mg/dL (8.4-10.2); Magnesium 2.1 mg/dL (1.6-2.3); Potassium 3.6 mmol/L (3.5-5.1)
[2019-08-07] MEDS: BUDESONIDE 1 MG/2 ML NEBU INHALATION SCH ×2 (07:54→21:01)
[2019-08-07] MEDS: FORMOTEROL FUMARATE 20 MCG/2 ML NEBU INHALATION SCH ×2 (08:01→21:01)
[2019-08-07] MEDS: INSULIN ASPART (NovoLOG) 100 UNIT/ML VIAL SQ SCH ×4 (09:46→21:00)
[2019-08-07] MEDS: HYDROCORTISONE SUCCINATE 100 MG/2 ML VIAL IV SCH ×2 (10:02→22:13)
[2019-08-07] MEDS: ATORVASTATIN 10 MG TAB PO SCH (10:02)
[2019-08-07] MEDS: traMADol 50 MG TAB PO SCH ×4 (10:02→22:12)
[2019-08-07] MEDS: guaiFENesin 600 MG TABLET.ER PO SCH ×2 (10:02→22:12)
[2019-08-07] MEDS: TOPIRAMATE 100 MG TAB PO SCH ×2 (10:02→22:12)
[2019-08-07] MEDS: ETODOLAC 400 MG TAB PO SCH ×2 (10:03→22:12)
[2019-08-07] MEDS: GABAPENTIN 300 MG CAP PO SCH ×2 (10:03→22:12)
[2019-08-07] MEDS: TOPIRAMATE 25 MG TAB PO SCH ×2 (10:03→22:12)
[2019-08-07] MEDS: BUPRENORPHINE HCL 150 MCG SUBLINGUAL SCH ×2 (10:37→22:13)
[2019-08-07 11:49] LABS: Glucose,Whole Blood 81 mg/dL (75-99)
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
--- NOTE | 2019-08-07 15:14 | P.PN ---
Subjective Progress Note Date: 08/07/19 (delayed charting seen at 1130) Principal diagnosis: malaise Patient is a 64-year-old female with a past medical history of COPD, chronic hypoxic respiratory failure on 3.5-4 L nasal cannula, chronic pain, and agranulocytosis who presented to the emergency department at the direction of Dr. Johnson for failed outpatient treatment of upper respiratory tract infection and COPD exacerbation. In the ER she underwent an extensive evaluation. Initial vital signs within normal limits. Initial laboratory analysis was unremarkable other than a mildly elevated AST and ALT or near her baseline, and a mildly elevated creatinine which is scantly near her baseline. Influenza was negative. Chest x-ray as reviewed by myself demonstrates elevation of both hemidiaphragms with fluid in the right major fissure and atelectasis or infiltrate bilaterally. In the ER she was given a dose of Levaquin, Solu- Medrol, bronchodilators. She was admitted for further monitoring. Pulmonology was consulted. She was continued on steroids which were transitioned to Solu- Cortef secondary to her history of adrenal insufficiency. Bronchodilators were optimized. IV Levaquin was continued. Infectious disease was consulted who agreed with IV Levaquin therapy. Labs were drawn for possible myasthenia gravis. Patient seen and examined at bedside. She reports she is still feeling very poor and ill. She reports that her breathing is slightly improved. She still has a poor appetite and has not had much oral intake. She denies any overt chest discomfort, nausea, or vomiting. Objective - Vital Signs Vital signs: Vital Signs Temp 98.4 F 08/07/19 07:00 Pulse 76 08/07/19 11:50 Resp 15 08/07/19 07:00 BP 120/70 08/07/19 07:00 Pulse Ox 92 L 08/07/19 07:00 Intake & Output 08/06/19 08/07/19 08/07/19 18:59 06:59 18:59 Intake Total 1140 1000 Balance 1140 1000 Intake: IV 1000 Sodium Chloride 0.9% 1, 1000 000 ml @ 100 mls/hr IV . Q10H [facility] Rx#:[id number] Intake, IV Titration 1140 Amount Sodium Chloride 0.9% 1, 1140 000 ml @ 100 mls/hr IV . Q10H [facility] Rx#:[id number] Other: # Voids 1 - Exam General: non toxic, no distress, appears older than stated age Derm: warm, dry Head: atraumatic, normocephalic, symmetric Eyes: EOMI, no lid lag, anicteric sclera Mouth: no lip lesion, mucus membranes moist Cardiovascular: S1S2 reg, no murmur, positive posterior tibial pulse bilateral, Lungs: Coarse breath sounds bilaterally, no accessory muscle use Abdominal: soft, + tender to palpation, no guarding, no appreciable organomegaly Ext: no gross muscle atrophy, no edema, no contractures Neuro: CN II-XI grossly intact, no focal neuro deficits Psych: Alert, oriented, appropriate affect - Labs CBC & Chem 7: 08/07/19 06:15 08/07/19 06:15 Labs: Abnormal Lab Results - Last 24 Hours (Table) 08/07/19 08/07/19 Range/Units 06:15 06:15 RDW 16.7 H (11.5-15.5) % Chloride 113 H (98-107) mmol/L Carbon Dioxide 18 L (22-30) mmol/L Calcium 7.5 L (8.4-10.2) mg/dL Microbiology - Last 24 Hours (Table) 08/05/19 16:46 Blood Culture - Preliminary Blood No Growth after 24 hours Assessment and Plan Assessment: Acute bronchitis with acute exacerbation of COPD, failed outpatient treatment in conjunction with chronic hypoxic respiratory failure and agammaglobulinemia -IV Levaquin secondary to multiple ALLERGIES and having failed Bactrim therapy, ID in agreement -Budesonide and aformeterol continue with DuoNeb therapy -Solu-Medrol -Sputum culture -Pulmonary hygiene -Pulm recs appreciated -Consult infectious disease resc appreciated -Breezy Goldberg Adrenal insufficiency -Correction, patient reports not being on steroids at home, but is having prednisone filled at pharmacy -on solucortef and transitioned to 50 BID 08/07/19 Chronic deconditioning -PT/OT evaluation -Fall precautions -Frequent ambulation GERD -PPI use with steroids Chronic: Irregular bowel movements Hiatal hernia Osteoporosis Dyslipidemia DVT prophylaxis: Heparin Discussed with: Patient, nursing Anticipated discharge date: 2-[address]: home with home health A total of 35 minutes was spent on the care of this complex patient more than 50% of the time was spent in counseling and care coordination.
[2019-08-07 17:08] LABS: Glucose,Whole Blood 90 mg/dL (75-99)
[2019-08-07] MEDS: LEVOFLOXACIN 750MG-D5W PMX 750 MG in DEXTROSE/WATER 1 150ML.BAG IVPB SCH (17:13)
--- NOTE | 2019-08-07 20:34 | PN ---
PROGRESS NOTE DATE OF SERVICE: 08/07/2019. REASON FOR FOLLOW UP: Possible pneumonia. INTERVAL HISTORY: The patient is currently afebrile. The patient is still complaining of shortness of breath. She continued to have a cough, congested, but not bringing up any sputum. The patient denies having any nausea, no vomiting, no abdominal pain. No diarrhea. PHYSICAL EXAMINATION: Blood pressure is 121/72 with a pulse of 73, temperature 98.2. She is 93% on 5 L nasal cannula. General description is a middle-aged female lying in bed in no distress. Respiratory system: Unlabored breathing. Decreased intensity in the breath sounds in the bases, with no wheeze. Heart S1, S2. Regular rate and rhythm. Abdomen soft. No tenderness. Extremities: No edema of the feet. LABS: Hemoglobin is 12, white count 8.7, BUN of 16, creatinine 0.92. Blood cultures negative. Sputum not collected. DIAGNOSTIC IMPRESSION AND PLAN: Patient with admission to hospital with difficulty breathing with concern for COPD exacerbation. Tracheobronchitis. Clinical suspicion of underlying pneumonia, in this patient who did have immunodeficiency. Hemoglobin level has been requested yet is it currently normal. Blood cultures from 08/06 pending. Continue steroids, bronchodilators and Levaquin. Will try to obtain a sputum and continue supportive care. MMODL / IJN: [id number] /
[2019-08-07 21:00] LABS: Glucose,Whole Blood 112 mg/dL (75-99)
[2019-08-07] MEDS: MONTELUKAST 10 MG TAB PO SCH (22:12)
[2019-08-07] MEDS: MIRTAZAPINE 15 MG TAB PO SCH (22:12)
[2019-08-07] MEDS: HEPARIN SODIUM,PORCINE 5,000 UNIT/ML 1 ML VIAL SQ SCH (22:12)
[2019-08-07] MEDS: DULoxetine HCL 30 MG CAPSULE.DR PO SCH (22:12)
[2019-08-08] MEDS: IPRATROPIUM-ALBUTEROL 3 ML NEB INHALATION SCH ×7 (00:07→20:38)
[2019-08-08] MEDS: LEVOTHYROXINE 75 MCG TAB PO SCH (05:22)
[2019-08-08] MEDS: SODIUM CHLORIDE 0.9% 1,000 ML IV SCH (05:23)
[2019-08-08 06:54] LABS: Glucose,Whole Blood 97 mg/dL (75-99)
[2019-08-08] MEDS: FORMOTEROL FUMARATE 20 MCG/2 ML NEBU INHALATION SCH ×2 (07:47→19:28)
[2019-08-08] MEDS: BUDESONIDE 1 MG/2 ML NEBU INHALATION SCH ×2 (07:47→19:28)
[2019-08-08 07:53] LABS: Anisocytosis Slight; HCT 35.6 % (34.0-46.0); HGB 11.7 gm/dL (11.4-16.0); MCH 31.9 pg (25.0-35.0); MCV 96.8 fL (80.0-100.0); Macrocytosis Slight; Platelet Count 188 k/uL (150-450); RBC 3.67 m/uL (3.80-5.40); RDW 16.7 % (11.5-15.5); WBC 8.1 k/uL (3.8-10.6)
[2019-08-08] MEDS: INSULIN ASPART (NovoLOG) 100 UNIT/ML VIAL SQ SCH ×4 (07:53→21:50)
[2019-08-08 08:09] LABS: Calcium 7.4 mg/dL (8.4-10.2); Magnesium 2.2 mg/dL (1.6-2.3); Potassium 3.3 mmol/L (3.5-5.1)
[2019-08-08] MEDS: HYDROCORTISONE SUCCINATE 100 MG/2 ML VIAL IV SCH ×2 (08:22→22:19)
[2019-08-08] MEDS: HEPARIN SODIUM,PORCINE 5,000 UNIT/ML 1 ML VIAL SQ SCH ×2 (08:22→22:19)
[2019-08-08] MEDS: PANTOPRAZOLE 40 MG TABLET PO SCH (08:22)
[2019-08-08] MEDS: TOPIRAMATE 100 MG TAB PO SCH ×2 (08:22→22:19)
[2019-08-08] MEDS: GABAPENTIN 300 MG CAP PO SCH ×2 (08:22→22:19)
[2019-08-08] MEDS: ATORVASTATIN 10 MG TAB PO SCH (08:23)
[2019-08-08] MEDS: guaiFENesin 600 MG TABLET.ER PO SCH ×2 (08:23→22:19)
[2019-08-08] MEDS: TOPIRAMATE 25 MG TAB PO SCH (08:23)
[2019-08-08] MEDS: ETODOLAC 400 MG TAB PO SCH (08:23)
[2019-08-08] MEDS: traMADol 50 MG TAB PO SCH ×3 (08:24→17:38)
[2019-08-08] MEDS: BUPRENORPHINE HCL 150 MCG SUBLINGUAL SCH ×2 (09:25→22:25)
[2019-08-08 10:03] LABS: Procalcitonin 0.03 ng/mL (0.02-0.09)
[2019-08-08 11:15] LABS: Glucose,Whole Blood 94 mg/dL (75-99)
[2019-08-08] MEDS ORDERED: POTASSIUM CHLORIDE ER 20 MEQ TAB.ER PO STA (11:22)
[2019-08-08 11:33] LABS: Immunoglobulin A 73.3 mg/dL (60.0-350.0); Immunoglobulin M 73.3 mg/dL (40.0-280.0)
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
[2019-08-08 16:54] LABS: Glucose,Whole Blood 112 mg/dL (75-99)
[2019-08-08] MEDS: LEVOFLOXACIN 750MG-D5W PMX 750 MG in DEXTROSE/WATER 1 150ML.BAG IVPB SCH (17:23)
[2019-08-08] MEDS ORDERED: CALCIUM CARB-VIT D 500MG-200UN 1 EACH TAB PO SCH (18:45)
[2019-08-08 20:14] LABS: Glucose,Whole Blood 157 mg/dL (75-99)
--- NOTE | 2019-08-08 22:11 | PN ---
PROGRESS NOTE DATE OF SERVICE: 08/08/2019. REASON FOR FOLLOWUP: Tracheobronchitis and a question of pneumonia with immunodeficiency. INTERVAL HISTORY: The patient is currently afebrile. She is still complaining of shortness of breath. She did have a congested cough but unable to cough up anything. No nausea, no vomiting. No abdominal pain or diarrhea. PHYSICAL EXAMINATION: Blood pressure 142/83 with a pulse of 72, temperature 97.4. She is 94% on 5 L nasal cannula. General description is a middle-aged female lying in bed in no distress. RESPIRATORY SYSTEM: Unlabored breathing with decreased intensity of breath sounds. No wheeze. HEART: S1, S2. Regular rate and rhythm. ABDOMEN: Soft. No tenderness. LABS: Hemoglobin 11.7, white count 8.1. BUN of 12, creatinine 0.81. Blood culture has been negative. DIAGNOSTIC IMPRESSION AND PLAN: Patient admitted to hospital with difficulty breathing and cough in this patient who did have possible tracheobronchitis exacerbation. No clear indication of pneumonia. The patient is covered with steroid and bronchodilators. To continue, and monitor clinical course closely. Continue with supportive care. MMODL / IJN: [id number] /
[2019-08-08] MEDS: CHOLECALCIFEROL 400 UNIT TAB PO SCH (22:19)
[2019-08-08] MEDS: traMADol 50 MG TAB PO PRN (22:19)
[2019-08-08] MEDS: MIRTAZAPINE 15 MG TAB PO SCH (22:19)
[2019-08-08] MEDS: CALCIUM CARBONATE 500 MG CHEWABLE PO SCH (22:19)
[2019-08-08] MEDS: MONTELUKAST 10 MG TAB PO SCH (22:19)
[2019-08-08] MEDS: DULoxetine HCL 30 MG CAPSULE.DR PO SCH (22:25)
[2019-08-09 06:52] LABS: Glucose,Whole Blood 108 mg/dL (75-99)
[2019-08-09] MEDS: INSULIN ASPART (NovoLOG) 100 UNIT/ML VIAL SQ SCH ×4 (07:26→21:17)
[2019-08-09 07:35] LABS: Anisocytosis Slight; HCT 35.5 % (34.0-46.0); HGB 11.4 gm/dL (11.4-16.0); MCH 30.9 pg (25.0-35.0); MCHC 32.1 g/dL (31.0-37.0); MCV 96.2 fL (80.0-100.0); Mean Platelet Volume 8.9; Platelet Count 163 k/uL (150-450); Poikilocytosis Slight; RBC 3.69 m/uL (3.80-5.40); RDW 16.8 % (11.5-15.5); WBC 6.7 k/uL (3.8-10.6)
[2019-08-09 08:09] LABS: African American GFR (CKD) >90 (>60 ml/min/1.73 sqM); Albumin 3.7 g/dL (3.5-5.0); Anion Gap 7 mmol/L; Blood Urea Nitrogen 12 mg/dL (7-17); Calcium 7.7 mg/dL (8.4-10.2); Carbon Dioxide 24 mmol/L (22-30); Chloride 110 mmol/L (98-107); Glucose 103 mg/dL (74-99); Non-African American GFR(CKD) 81 (>60 ml/min/1.73 sqM); Sodium 141 mmol/L (137-145)
[2019-08-09] MEDS: FORMOTEROL FUMARATE 20 MCG/2 ML NEBU INHALATION SCH ×2 (08:15→21:11)
[2019-08-09] MEDS: IPRATROPIUM-ALBUTEROL 3 ML NEB INHALATION SCH ×4 (08:15→21:11)
[2019-08-09] MEDS: BUDESONIDE 1 MG/2 ML NEBU INHALATION SCH ×2 (08:15→21:11)
[2019-08-09 08:20] LABS: Ionized Calcium 4.4 mg/dL (4.5-5.3)
[2019-08-09] MEDS: HYDROCORTISONE SUCCINATE 100 MG/2 ML VIAL IV SCH ×2 (08:52→21:13)
[2019-08-09] MEDS: GABAPENTIN 300 MG CAP PO SCH ×2 (08:52→21:19)
[2019-08-09] MEDS: CALCIUM CARBONATE 500 MG CHEWABLE PO SCH ×2 (08:53→17:24)
[2019-08-09] MEDS: PANTOPRAZOLE 40 MG TABLET PO SCH (08:53)
[2019-08-09] MEDS: ATORVASTATIN 10 MG TAB PO SCH (08:53)
[2019-08-09] MEDS: CHOLECALCIFEROL 400 UNIT TAB PO SCH ×2 (08:53→18:50)
[2019-08-09] MEDS: TOPIRAMATE 100 MG TAB PO SCH ×2 (08:53→21:19)
[2019-08-09] MEDS: guaiFENesin 600 MG TABLET.ER PO SCH ×2 (08:54→21:18)
[2019-08-09] MEDS: HEPARIN SODIUM,PORCINE 5,000 UNIT/ML 1 ML VIAL SQ SCH ×2 (08:54→21:14)
[2019-08-09] MEDS: LEVOTHYROXINE 75 MCG TAB PO SCH (09:01)
[2019-08-09] MEDS ORDERED: POTASSIUM CHLORIDE ER 20 MEQ TAB.ER PO STA (09:16)
[2019-08-09] MEDS ORDERED: POTASSIUM BICARBONATE/CIT AC 20 MEQ TABLET.EFF PO ONE ×2 (09:18→17:00)
[2019-08-09] MEDS: BUPRENORPHINE HCL 150 MCG SUBLINGUAL SCH ×2 (09:20→21:59)
[2019-08-09 09:41] LABS: T4, Free (Free Thyroxine) 0.24 ng/dL (0.78-2.19)
--- NOTE | 2019-08-09 10:58 | P.PN ---
Subjective Clinically patient appears better this morning. Her oxygen requirements are about the home baseline. She feels somewhat improved. Only bothersome symptom is cough with sticky mucus expectoration of the purulence has resolved. No fever or chills chest pain nausea vomiting or any other discomfort Objective - Vital Signs Vital signs: Vital Signs Temp 97.6 F 08/09/19 07:00 Pulse 90 08/09/19 08:50 Resp 17 08/09/19 07:00 BP 104/67 08/09/19 07:00 Pulse Ox 94 L 08/09/19 07:00 Intake & Output 08/08/19 08/09/19 08/09/19 18:59 06:59 18:59 Intake Total 620 50 Balance 620 50 Intake: IV 400 Sodium Chloride 0.9% 1, 400 000 ml @ 100 mls/hr IV . Q10H HETAL Rx#:[id number] Oral 220 50 Other: # Voids 1 - Exam Vital Signs: I have reviewed the vital signs. GENERAL: Patient appears Fatigue, no apparent distress, cooperative Eyes: PERRL, extraoculry movements intact, clear conjunctiva Head: : Atraumatic external nose and ears, oropharyngeal mucosa is moist without lesions or exudates Neck: Symmetric, trachea midline, No thyromegaly, no masses or neck vain pulsation, no neck rigidity CVS: +S1/S2, No murmurs or gallops. Peripheral pulses 2+ and equal in all extremities. RESP: Unlabored respiratory effort. Breath sounds are diminished no visible wheezing. She clearly has poor respiratory effort Abdomen: Bowel sounds present in all 4 quadrants, Soft to palpation, Nontender/Nondistended, No hepatosplenomegaly, no hernias or masses, no CVA tnderness Musculoskeletal: Extremities w/o deformity, No cyanosis or clubbing, no joint swelling Skin: Warm, Dry. 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680) mIU/L Free T4 0.24 L (0.78-2.19) ng/dL 08/09/19 08/09/19 Range/Units 06:36 06:51 RBC 3.69 L (3.80-5.40) m/uL RDW 16.8 H (11.5-15.5) % Potassium (3.5-5.1) mmol/L Chloride (98-107) mmol/L Glucose (74-99) mg/dL POC Glucose (mg/dL) 108 H (75-99) mg/dL Calcium (8.4-10.2) mg/dL Ionized Calcium Juliano (4.5-5.3) mg/dL TSH (0.465-4.680) mIU/L Free T4 (0.78-2.19) ng/dL Microbiology - Last 24 Hours (Table) 08/05/19 16:46 Blood Culture - Preliminary Blood No Growth after 72 hours Assessment and Plan Assessment: 1. Acute on chronic hypoxic respiratory failure Due to acute tracheobronchitis and bilateral diaphragmatic weakness Infectious disease and pulmonary service following Chest physiotherapy Bronchodilators Increase activity as tolerated Per patient her diaphragmatic weakness been present for many many years and did not get worked up an outpatient basis 2. Hypothyroidism This been closely followed by her PCP TSH actually they is much slower comparing to February 2019 Patient is a high dose of levothyroxine that has been recently decreased by her primary care doctor Review of technique of using the levothyroxine showed patient been taking properly in the morning on empty stomach She told me that she was informed that she has a problem with malabsorption I don't feel the patient is clinically significantly hypothyroid appearing. Since TSH has decreased from before and has been management per primary care physician I will defer this to him with quick follow-up after discharge and patient was agreeable and comfortable with that 3. Acute on chronic debility Physical and occupational therapy Decrease medications with sedating effects
[2019-08-09 11:37] LABS: Glucose,Whole Blood 117 mg/dL (75-99)
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
--- NOTE | 2019-08-09 15:33 | XR ---
EXAMINATION TYPE: XR chest 2V DATE OF EXAM: 08/09/2019 COMPARISON: 08/07/2019 HISTORY: Shortness of breath TECHNIQUE: Frontal and lateral views of the chest are obtained. FINDINGS: Scattered senescent parenchymal changes noted. Lung volumes are diminished. Basilar atelectasis noted. Superimposed infiltrates not excluded. Aeration has improved at the lung b ases. Heart size is stable. Mediastinal structures are stable and grossly unremarkable. No evidence for hilar prominence. Degenerative changes dorsal spine. IMPRESSION: 1. Basilar atelectasis noted. Superimposed infiltrates not excluded. Aeration has improved at the lopez g bases.
[2019-08-09 16:37] LABS: Glucose,Whole Blood 232 mg/dL (75-99)
[2019-08-09 16:38] LABS: Glucose,Whole Blood 182 mg/dL (75-99)
[2019-08-09] MEDS: LEVOFLOXACIN 750MG-D5W PMX 750 MG in DEXTROSE/WATER 1 150ML.BAG IVPB SCH (17:24)
--- NOTE | 2019-08-09 19:04 | PN ---
PROGRESS NOTE DATE OF SERVICE: 08/09/2019 REASON FOR FOLLOWUP: Tracheobronchitis and a question of pneumonia in this patient with underlying immunodeficiency. INTERVAL HISTORY: The patient is currently afebrile. Still complaining of shortness of breath. She did have a congested cough but not bringing up any sputum. No nausea, vomiting, abdominal pain or any diarrhea. PHYSICAL EXAMINATION: Her blood pressure is 111/72 with a pulse of 68, temperature 97.5. She is 93% on 5 L nasal cannula. General description is a middle-aged female lying in bed in no distress. RESPIRATORY SYSTEM: Unlabored breathing. Coarse breath sounds bilaterally. No wheeze. HEART: S1, S2. Regular rate and rhythm. ABDOMEN: Soft. No tenderness. LABS/IMAGING: Chest x-ray today is showing basilar atelectasis noted but not excluded. Aeration has improved. The patient's white count is normal and immunoglobulin levels came back as normal. DIAGNOSTIC IMPRESSION AND PLAN: Patient admitted to hospital with difficulty breathing and cough in this patient likely with chronic obstructive pulmonary disease exacerbation and tracheobronchitis; pneumonia less likely. The patient's immunoglobulin levels came back to normal. She is currently with Levaquin, steroids and bronchodilators; to continue while monitoring clinical course closely. MMODL / IJN: [id number] /
[2019-08-09 20:34] LABS: Glucose,Whole Blood 125 mg/dL (75-99)
[2019-08-09] MEDS: traMADol 50 MG TAB PO PRN (21:18)
[2019-08-09] MEDS: DULoxetine HCL 30 MG CAPSULE.DR PO SCH (21:18)
[2019-08-09] MEDS: MIRTAZAPINE 15 MG TAB PO SCH (21:19)
[2019-08-09] MEDS: MONTELUKAST 10 MG TAB PO SCH (21:19)
[2019-08-10] MEDS: MELATONIN 3 MG TABLET PO PRN ×2 (00:03→22:20)
[2019-08-10] MEDS: LEVOTHYROXINE 75 MCG TAB PO SCH (05:38)
[2019-08-10 06:58] LABS: Anisocytosis Slight; HCT 34.4 % (34.0-46.0); HGB 11.5 gm/dL (11.4-16.0); MCH 32.2 pg (25.0-35.0); MCHC 33.4 g/dL (31.0-37.0); MCV 96.4 fL (80.0-100.0); Macrocytosis Slight; Mean Platelet Volume 8.7; Platelet Count 195 k/uL (150-450); Poikilocytosis Slight; RBC 3.57 m/uL (3.80-5.40); RDW 16.8 % (11.5-15.5); WBC 7.4 k/uL (3.8-10.6)
[2019-08-10 07:07] LABS: Glucose,Whole Blood 152 mg/dL (75-99)
[2019-08-10 07:11] LABS: Calcium 8.2 mg/dL (8.4-10.2); Potassium 3.5 mmol/L (3.5-5.1)
[2019-08-10] MEDS: PANTOPRAZOLE 40 MG TABLET PO SCH (07:50)
[2019-08-10] MEDS: guaiFENesin 600 MG TABLET.ER PO SCH ×2 (07:50→21:46)
[2019-08-10] MEDS: GABAPENTIN 300 MG CAP PO SCH ×2 (07:50→21:45)
[2019-08-10] MEDS: CALCIUM CARBONATE 500 MG CHEWABLE PO SCH ×2 (07:50→16:42)
[2019-08-10] MEDS: ATORVASTATIN 10 MG TAB PO SCH (07:50)
[2019-08-10] MEDS: HYDROCORTISONE SUCCINATE 100 MG/2 ML VIAL IV SCH ×2 (07:50→21:46)
[2019-08-10] MEDS: TOPIRAMATE 100 MG TAB PO SCH ×2 (07:50→21:45)
[2019-08-10] MEDS: CHOLECALCIFEROL 400 UNIT TAB PO SCH ×2 (07:51→16:43)
[2019-08-10] MEDS: HEPARIN SODIUM,PORCINE 5,000 UNIT/ML 1 ML VIAL SQ SCH ×2 (07:51→21:46)
[2019-08-10] MEDS: INSULIN ASPART (NovoLOG) 100 UNIT/ML VIAL SQ SCH ×4 (07:51→20:27)
[2019-08-10] MEDS: FORMOTEROL FUMARATE 20 MCG/2 ML NEBU INHALATION SCH ×2 (08:06→20:22)
[2019-08-10] MEDS: BUDESONIDE 1 MG/2 ML NEBU INHALATION SCH ×2 (08:06→20:22)
[2019-08-10] MEDS: IPRATROPIUM-ALBUTEROL 3 ML NEB INHALATION SCH ×4 (08:06→20:22)
[2019-08-10] MEDS: BUPRENORPHINE HCL 150 MCG SUBLINGUAL SCH ×2 (09:25→22:20)
--- NOTE | 2019-08-10 09:42 | P.PN ---
Subjective Clinically patient appears better this morning. Her oxygen requirements are about the home baseline. She feels somewhat improved. Only bothersome symptom is cough with sticky mucus expectoration of the purulence has resolved. No fever or chills chest pain nausea vomiting or any other discomfort She ambulates now in the room, denies signifficant SOB Objective - Vital Signs Vital signs: Vital Signs Temp 97.5 F L 08/10/19 07:00 Pulse 72 08/10/19 08:28 Resp 16 08/10/19 07:00 BP 122/76 08/10/19 07:00 Pulse Ox 97 08/10/19 07:00 Intake & Output 08/09/19 08/10/19 08/10/19 18:59 06:59 18:59 Intake Total 100 20 Output Total 1300 Balance 100 -1280 Intake: Oral 100 20 Output: Urine 1300 Other: Voiding Method Toilet # Voids 1 - Exam Vital Signs: I have reviewed the vital signs. GENERAL: Patient appears Fatigue, no apparent distress, cooperative Eyes: PERRL, extraoculry movements intact, clear conjunctiva Head: : Atraumatic external nose and ears, oropharyngeal mucosa is moist without lesions or exudates Neck: Symmetric, trachea midline, No thyromegaly, no masses or neck vain pulsation, no neck rigidity CVS: +S1/S2, No murmurs or gallops. Peripheral pulses 2+ and equal in all extremities. RESP: Unlabored respiratory effort. Breath sounds are diminished no visible wheezing. She clearly has poor respiratory effort Abdomen: Bowel sounds present in all 4 quadrants, Soft to palpation, Nontender/Nondistended, No hepatosplenomegaly, no hernias or masses, no CVA tnderness Musculoskeletal: Extremities w/o deformity, No cyanosis or clubbing, no joint swelling Skin: Warm, Dry. 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, motor strenght 5/5 i upper and lower extremities, no clonus, patellar DTRs 2+ and sympetrical Psych: Awake, Alert, & Oriented (AAO) x3 Appropriate mood and affect - Labs CBC & Chem 7: 08/10/19 06:21 08/10/19 06:21 Labs: Abnormal Lab Results - Last 24 Hours (Table) 08/09/19 08/09/19 08/09/19 Range/Units 11:35 16:35 16:36 RBC (3.80-5.40) m/uL RDW (11.5-15.5) % Glucose (74-99) mg/dL POC Glucose (mg/dL) 117 H 232 H 182 H (75-99) mg/dL Calcium (8.4-10.2) mg/dL 08/09/19 08/10/19 08/10/19 Range/Units 20:32 06:21 06:21 RBC 3.57 L (3.80-5.40) m/uL RDW 16.8 H (11.5-15.5) % Glucose 102 H (74-99) mg/dL POC Glucose (mg/dL) 125 H (75-99) mg/dL Calcium 8.2 L (8.4-10.2) mg/dL 08/10/19 Range/Units 07:04 RBC (3.80-5.40) m/uL RDW (11.5-15.5) % Glucose (74-99) mg/dL POC Glucose (mg/dL) 152 H (75-99) mg/dL Calcium (8.4-10.2) mg/dL Microbiology - Last 24 Hours (Table) 08/09/19 12:08 Gram Stain - Preliminary Sputum Sputum Culture - Preliminary 08/05/19 16:46 Blood Culture - Preliminary Blood No Growth after 96 hours Assessment and Plan Assessment: 1. Acute on chronic hypoxic respiratory failure Due to acute tracheobronchitis and bilateral diaphragmatic weakness Infectious disease and pulmonary service following Chest physiotherapy Bronchodilators Increase activity as tolerated Per patient her diaphragmatic weakness been present for many many years and did not get worked up an outpatient basis 2. Hypothyroidism This been closely followed by her PCP TSH actually they is much slower comparing to February 2019 Patient is a high dose of levothyroxine that has been recently decreased by her primary care doctor Review of technique of using the levothyroxine showed patient been taking properly in the morning on empty stomach She told me that she was informed that she has a problem with malabsorption I don't feel the patient is clinically significantly hypothyroid appearing. Since TSH has decreased from before and has been management per primary care amanda lindsey I will defer this to him with quick follow-up after discharge and patient was agreeable and comfortable with that 3. Acute on chronic debility Physical and occupational therapy Decrease medications with sedating effects
[2019-08-10 11:52] LABS: Glucose,Whole Blood 140 mg/dL (75-99)
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
[2019-08-10 16:37] LABS: Glucose,Whole Blood 117 mg/dL (75-99)
[2019-08-10] MEDS: LEVOFLOXACIN 750 MG TAB PO SCH (16:43)
[2019-08-10 20:20] LABS: Glucose,Whole Blood 109 mg/dL (75-99)
[2019-08-10] MEDS: MIRTAZAPINE 15 MG TAB PO SCH (21:45)
[2019-08-10] MEDS: MONTELUKAST 10 MG TAB PO SCH (21:46)
[2019-08-10] MEDS: DULoxetine HCL 30 MG CAPSULE.DR PO SCH (21:46)
--- NOTE | 2019-08-11 05:16 | PN ---
PROGRESS NOTE DATE OF SERVICE: 08/10/2019 REASON FOR FOLLOWUP: Tracheobronchitis, question of pneumonia. INTERVAL HISTORY: The patient is currently afebrile. She is breathing comfortably. The patient continued to have a cough, but not bringing up any sputum. No chest pain, shortness of breath or cough. No abdominal pain or diarrhea. PHYSICAL EXAMINATION: Blood pressure is 110/73 with a pulse of 69, temperature 98.1. She is 94% on 5 L nasal cannula. General description is a middle-aged female lying in bed in no distress. RESPIRATORY SYSTEM: Unlabored breathing, decreased intensity of breath sounds. No wheeze. HEART: S1, S2. Regular rate and rhythm. ABDOMEN: Soft, no tenderness. LABS: Hemoglobin 11.5, white count 7.4, BUN of 13, creatinine 0.91. Sputum culture currently pending. DIAGNOSTIC IMPRESSION AND PLAN: Patient admitted to the hospital with chronic obstructive pulmonary disease exacerbation with tracheobronchitis in this patient have underlying common variable immunodeficiency though the immunoglobulin levels were normal. The patient is currently covered with steroids, bronchodilators and Levaquin to continue. Sputum has been obtained, those will be followed and will monitor clinical course closely. MMODL / IJN: [id number] /
[2019-08-11] MEDS: LEVOTHYROXINE 75 MCG TAB PO SCH (05:36)
[2019-08-11 06:51] LABS: Glucose,Whole Blood 105 mg/dL (75-99)
[2019-08-11 07:02] LABS: Anisocytosis Slight; HCT 35.2 % (34.0-46.0); HGB 11.8 gm/dL (11.4-16.0); MCH 32.6 pg (25.0-35.0); MCHC 33.6 g/dL (31.0-37.0); MCV 97.2 fL (80.0-100.0); Macrocytosis Slight; Mean Platelet Volume 8.9; Platelet Count 192 k/uL (150-450); Poikilocytosis Slight; RBC 3.62 m/uL (3.80-5.40); RDW 16.9 % (11.5-15.5); WBC 8.3 k/uL (3.8-10.6)
[2019-08-11 07:15] LABS: Calcium 8.3 mg/dL (8.4-10.2); Potassium 3.2 mmol/L (3.5-5.1)
[2019-08-11] MEDS: INSULIN ASPART (NovoLOG) 100 UNIT/ML VIAL SQ SCH ×4 (07:45→21:37)
[2019-08-11] MEDS: TOPIRAMATE 100 MG TAB PO SCH ×2 (07:50→21:02)
[2019-08-11] MEDS: PANTOPRAZOLE 40 MG TABLET PO SCH (07:50)
[2019-08-11] MEDS: ATORVASTATIN 10 MG TAB PO SCH (07:50)
[2019-08-11] MEDS: CALCIUM CARBONATE 500 MG CHEWABLE PO SCH ×2 (07:51→17:07)
[2019-08-11] MEDS: guaiFENesin 600 MG TABLET.ER PO SCH ×2 (07:51→21:01)
[2019-08-11] MEDS: GABAPENTIN 300 MG CAP PO SCH ×2 (07:51→21:01)
[2019-08-11] MEDS: CHOLECALCIFEROL 400 UNIT TAB PO SCH ×2 (07:51→17:09)
[2019-08-11] MEDS: HYDROCORTISONE SUCCINATE 100 MG/2 ML VIAL IV SCH ×2 (07:53→21:01)
[2019-08-11] MEDS: HEPARIN SODIUM,PORCINE 5,000 UNIT/ML 1 ML VIAL SQ SCH ×2 (07:55→21:01)
--- NOTE | 2019-08-11 08:46 | P.PN ---
Subjective Clinically, patient continues trajectory her of improvement of her respiratory status. She is on 4-5 L of oxygen. She uses 3-4 at home. She appears comfortable. Should be up to chair and to the bathroom. No new events overnight Objective - Vital Signs Vital signs: Vital Signs Temp 97.5 F L 08/11/19 07:00 Pulse 65 08/11/19 07:00 Resp 18 08/11/19 07:00 BP 111/67 08/11/19 07:00 Pulse Ox 96 08/11/19 07:00 Intake & Output 08/10/19 08/11/19 08/11/19 18:59 06:59 18:59 Intake Total 594 Balance 594 Intake: Oral 594 Other: Voiding Method Toilet Toilet # Voids 1 1 - Exam Vital Signs: I have reviewed the vital signs. GENERAL: Patient appears Fatigue, no apparent distress, cooperative Eyes: PERRL, extraoculry movements intact, clear conjunctiva Head: : Atraumatic external nose and ears, oropharyngeal mucosa is moist without lesions or exudates Neck: Symmetric, trachea midline, No thyromegaly, no masses or neck vain pulsation, no neck rigidity CVS: +S1/S2, No murmurs or gallops. Peripheral pulses 2+ and equal in all extremities. RESP: Unlabored respiratory effort. Breath sounds are diminished no visible w heezing. She clearly has poor respiratory effort Abdomen: Bowel sounds present in all 4 quadrants, Soft to palpation, Nontender/Nondistended, No hepatosplenomegaly, no hernias or masses, no CVA tnderness Musculoskeletal: Extremities w/o deformity, No cyanosis or clubbing, no joint swelling Skin: Warm, Dry. 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, motor strenght 5/5 i upper and lower extremities, no clonus, patellar DTRs 2+ and sympetrical Psych: Awake, Alert, & Oriented (AAO) x3 Appropriate mood and affect - Labs CBC & Chem 7: 08/11/19 06:27 08/11/19 06:27 Labs: Abnormal Lab Results - Last 24 Hours (Table) 08/10/19 08/10/19 08/10/19 Range/Units 11:49 16:36 20:18 RBC (3.80-5.40) m/uL RDW (11.5-15.5) % Potassium (3.5-5.1) mmol/L Glucose (74-99) mg/dL POC Glucose (mg/dL) 140 H 117 H 109 H (75-99) mg/dL Calcium (8.4-10.2) mg/dL 08/11/19 08/11/19 08/11/19 Range/Units 06:27 06:27 06:50 RBC 3.62 L (3.80-5.40) m/uL RDW 16.9 H (11.5-15.5) % Potassium 3.2 L (3.5-5.1) mmol/L Glucose 104 H (74-99) mg/dL POC Glucose (mg/dL) 105 H (75-99) mg/dL Calcium 8.3 L (8.4-10.2) mg/dL Microbiology - Last 24 Hours (Table) 08/05/19 16:46 Blood Culture - Preliminary Blood No Growth after 120 hours 08/09/19 12:08 Gram Stain - Preliminary Sputum Sputum Culture - Preliminary Assessment and Plan Assessment: 1. Acute on chronic hypoxic respiratory failure Due to acute tracheobronchitis and bilateral diaphragmatic weakness Infectious disease and pulmonary service following Chest physiotherapy Bronchodilators Increase activity as tolerated Per patient her diaphragmatic weakness been present for many many years and per patient it had been worked up extensively as she is not interested in any further evaluation of this 2. Hypothyroidism This been closely followed by her PCP TSH actually they is much slower comparing to February 2019 Patient is a high dose of levothyroxine that has been recently decreased by her primary care doctor Review of technique of using the levothyroxine showed patient been taking p roperly in the morning on empty stomach She told me that she was informed that she has a problem with malabsorption I don't feel the patient is clinically significantly hypothyroid appearing. Since TSH has decreased from before and has been management per primary care physician I will defer this to him with quick follow-up after discharge and patient was agreeable and comfortable with that 3. Acute on chronic debility Physical and occupational therapy Decrease medications with sedating effects Increase activity. Physical occupational therapy. Nutrition. Patient is feeling that she is much better and may want to go home. She lives with her brother and has a good support at home and can follow-up with primary care physician.
[2019-08-11] MEDS ORDERED: Potassium Replacement Protocol 1 EACH MISC MISCELLANE PRN (08:50)
[2019-08-11] MEDS: POTASSIUM CHLORIDE ER 20 MEQ TAB.ER PO SCH ×2 (09:19→10:49)
[2019-08-11] MEDS: BUPRENORPHINE HCL 150 MCG SUBLINGUAL SCH ×2 (09:23→21:02)
[2019-08-11] MEDS: IPRATROPIUM-ALBUTEROL 3 ML NEB INHALATION SCH ×4 (10:05→20:17)
[2019-08-11] MEDS: BUDESONIDE 1 MG/2 ML NEBU INHALATION SCH ×2 (10:05→20:17)
[2019-08-11] MEDS: FORMOTEROL FUMARATE 20 MCG/2 ML NEBU INHALATION SCH ×2 (10:05→20:17)
[2019-08-11 11:42] LABS: Glucose,Whole Blood 112 mg/dL (75-99)
--- NOTE | 2019-08-11 15:14 | PN ---
PROGRESS NOTE DATE OF SERVICE: 08/11/2019 REASON FOR FOLLOWUP: Tracheobronchitis and a question of pneumonia. INTERVAL HISTORY: The patient is currently afebrile. She is breathing slightly comfortably. The patient did have a cough and bringing up some sputum. No hemoptysis. No chest pain. No nausea, vomiting. No abdominal pain, no diarrhea. PHYSICAL EXAMINATION: Blood pressure is 111/57 with a pulse of 85, temperature is 97.5, she is 96% on room air. General description is a middle-aged female, up in the bed in no distress. RESPIRATORY SYSTEM: Unlabored breathing, coarse breath sounds bilaterally, no wheeze. HEART: S1, S2. Regular rate and rhythm. ABDOMEN: Soft, no tenderness. LABS: Hemoglobin is 11.5, white count of 8.3, BUN of 15, creatinine 0.92. Blood culture negative. Sputum has been negative. DIAGNOSTIC IMPRESSION AND PLAN: Patient admitted to the hospital with breathing and cough, likely tracheobronchitis, possibly resistant pathogen. Sputum has been negative for resistant pathogen. Patient currently on Levaquin to continue to finish her course of therapy and watch her clinical course closely. MMODL / IJN: [id number] /
[2019-08-11 16:58] LABS: Glucose,Whole Blood 142 mg/dL (75-99)
[2019-08-11] MEDS: LEVOFLOXACIN 750 MG TAB PO SCH (17:09)
[2019-08-11 20:17] LABS: Glucose,Whole Blood 139 mg/dL (75-99)
[2019-08-11] MEDS: MIRTAZAPINE 15 MG TAB PO SCH (21:02)
[2019-08-11] MEDS: MONTELUKAST 10 MG TAB PO SCH (21:02)
[2019-08-11] MEDS: DULoxetine HCL 30 MG CAPSULE.DR PO SCH (21:37)
[2019-08-12] MEDS: LEVOTHYROXINE 75 MCG TAB PO SCH (05:02)
[2019-08-12 07:00] LABS: Glucose,Whole Blood 97 mg/dL (75-99)
[2019-08-12 07:27] LABS: Calcium 8.4 mg/dL (8.4-10.2); Potassium 3.2 mmol/L (3.5-5.1)
[2019-08-12] MEDS: INSULIN ASPART (NovoLOG) 100 UNIT/ML VIAL SQ SCH ×2 (08:07→12:06)
[2019-08-12] MEDS: guaiFENesin 600 MG TABLET.ER PO SCH (08:08)
[2019-08-12] MEDS: ATORVASTATIN 10 MG TAB PO SCH (08:08)
[2019-08-12] MEDS: PANTOPRAZOLE 40 MG TABLET PO SCH (08:08)
[2019-08-12] MEDS: TOPIRAMATE 100 MG TAB PO SCH (08:09)
[2019-08-12] MEDS: BUPRENORPHINE HCL 150 MCG SUBLINGUAL SCH (08:09)
[2019-08-12] MEDS: GABAPENTIN 300 MG CAP PO SCH (08:09)
[2019-08-12] MEDS: HEPARIN SODIUM,PORCINE 5,000 UNIT/ML 1 ML VIAL SQ SCH (08:10)
[2019-08-12] MEDS: IPRATROPIUM-ALBUTEROL 3 ML NEB INHALATION SCH ×3 (08:24→16:24)
[2019-08-12] MEDS: FORMOTEROL FUMARATE 20 MCG/2 ML NEBU INHALATION SCH (08:24)
[2019-08-12] MEDS: BUDESONIDE 1 MG/2 ML NEBU INHALATION SCH (08:24)
[2019-08-12] MEDS ORDERED: Potassium Replacement Protocol 1 EACH MISC MISCELLANE PRN (08:27)
[2019-08-12] MEDS ORDERED: predniSONE 20 MG TAB PO SCH (09:00)
[2019-08-12] MEDS: POTASSIUM CHLORIDE ER 20 MEQ TAB.ER PO SCH ×2 (09:13→09:59)
--- NOTE | 2019-08-12 11:33 | P.PN ---
Subjective No new events. Patient is about the same. Her cough is more productive and then brings sort of a relief to her symptoms. Otherwise she denies any episodes of severe shortness of breath she is up in the chair and ambulating in the room to the bathroom. Objective - Vital Signs Vital signs: Vital Signs Temp 97.9 F 08/12/19 07:00 Pulse 64 08/12/19 08:51 Resp 15 08/12/19 08:00 BP 106/67 08/12/19 07:00 Pulse Ox 96 08/12/19 07:00 Intake & Output 08/11/19 08/12/19 08/12/19 18:59 06:59 18:59 Intake Total 416 Balance 416 Intake: Oral 416 Other: Voiding Method Toilet Toilet Toilet # Voids 1 2 - Exam Vital Signs: I have reviewed the vital signs. GENERAL: Patient appears Fatigue, no apparent distress, cooperative Eyes: PERRL, extraoculry movements intact, clear conjunctiva Head: : Atraumatic external nose and ears, oropharyngeal mucosa is moist without lesions or exudates Neck: Symmetric, trachea midline, No thyromegaly, no masses or neck vain pulsation, no neck rigidity CVS: +S1/S2, No murmurs or gallops. Peripheral pulses 2+ and equal in all ext remities. RESP: Unlabored respiratory effort. Breath sounds are diminished no visible wheezing. She clearly has poor respiratory effort Abdomen: Bowel sounds present in all 4 quadrants, Soft to palpation, Nontender/N ondistended, No hepatosplenomegaly, no hernias or masses, no CVA tnderness Musculoskeletal: Extremities w/o deformity, No cyanosis or clubbing, no joint swelling Skin: Warm, Dry. 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, motor strenght 5/5 i upper and lower ext remities, no clonus, patellar DTRs 2+ and sympetrical Psych: Awake, Alert, & Oriented (AAO) x3 Appropriate mood and affect - Labs CBC & Chem 7: 08/11/19 06:27 08/12/19 06:27 Labs: Abnormal Lab Results - Last 24 Hours (Table) 08/11/19 08/11/19 08/11/19 Range/Units 11:41 16:57 20:15 Potassium (3.5-5.1) mmol/L Glucose (74-99) mg/dL POC Glucose (mg/dL) 112 H 142 H 139 H (75-99) mg/dL 08/12/19 Range/Units 06:27 Potassium 3.2 L (3.5-5.1) mmol/L Glucose 105 H (74-99) mg/dL POC Glucose (mg/dL) (75-99) mg/dL Microbiology - Last 24 Hours (Table) 08/05/19 16:46 Blood Culture - Final Blood No Growth after 144 hours 08/09/19 12:08 Gram Stain - Final Sputum Sputum Culture - Final Assessment and Plan Assessment: 1. Acute on chronic hypoxic respiratory failure Due to acute tracheobronchitis and bilateral diaphragmatic weakness Will change patient to prednisone today Discussed with the patient, expecting protracted course and long recovery process Patient did express desire to be discharged home and she needs to be evaluated by pulmonary service prior 2. Hypothyroidism This been closely followed by her PCP TSH actually they is much slower comparing to February 2019 Patient is a high dose of levothyroxine that has been recently decreased by her primary care doctor Review of technique of using the levothyroxine showed patient been taking properly in the morning on empty stomach She told me that she was informed that she has a problem with malabsorption I don't feel the patient is clinically significantly hypothyroid appearing. Since TSH has decreased from before and has been management per primary care physician I will defer this to him with quick follow-up after discharge and patient was agreeable and comfortable with that 3. Acute on chronic debility Physical and occupational therapy Decrease medications with sedating effects 4. Hypokalemia Being replaced We'll add magnesium Suspect some effect of steroids and decrease oral intake I
[2019-08-12 11:53] LABS: Glucose,Whole Blood 95 mg/dL (75-99)
[2019-08-12 12:55] VITALS: BMI 21.4
[2019-08-12 15:25] VITALS: BP 155/85; TEMP 98.2
--- NOTE | 2019-08-12 15:29 | PN ---
PROGRESS NOTE DATE OF SERVICE: 08/12/2019 REASON FOR FOLLOW UP: Tracheobronchitis, pneumonia, and immunodeficiency. INTERVAL HISTORY: The patient is currently afebrile. The patient is breathing more comfortably. The patient did have a cough, no decreased intensity with occasional sputum. No hemoptysis. No chest pain. No nausea, vomiting. No abdominal pain, no diarrhea. PHYSICAL EXAMINATION: Blood pressure 106/57 with a pulse of 78, temperature 97.9. She is 96% on 5 L nasal cannula. General description is a middle-aged female, up in the bed in no distress. RESPIRATORY SYSTEM: Unlabored breathing with decreased breath sounds, no wheeze. HEART: S1, S2. Regular rate and rhythm. ABDOMEN: Soft, no tenderness. LABS: BUN of 14, creatinine 0.85, white count 8.3. DIAGNOSTIC IMPRESSION AND PLAN: Patient admitted to the hospital with difficulty breathing and cough. The patient did have a chronic obstructive pulmonary disease exacerbation with tracheobronchitis and less likely pneumonia. Patient has shown overall clinical improvement on Levaquin, steroids and bronchodilators to continue and will monitor clinical course closely. Continue supportive care. MMODL / IJN: [id number] /
[2019-08-12] MEDS: LEVOFLOXACIN 750 MG TAB PO SCH (15:55)
[2019-08-12 16:26] VITALS: RESP 18
[2019-08-12 16:35] VITALS: PULSE 78
--- NOTE | 2019-08-12 16:44 | P.DS ---
Providers Date of admission: 08/05/19 17:58 Attending physician: Gricelda Sullivan DO Consults: 08/05/19 17:50 Consult Physician Routine Consulting Provider: Sumeet Steven Consult Reason/Comments: sob Do you want consulting provider notified?: Yes 08/06/19 12:27 Consult Physician Routine Consulting Provider: Dwayne Martinez Consult Reason/Comments: bronchitis, FOP, agammaglobulinemia Do you want consulting provider notified?: Yes Primary care physician: Maikel Johnson [place] [facility] Course: Date of discharge: 08/12/2019 Consultants: 1. Dr. Moseley pulmonology 2. infectious disease Reason for admission: Shortness of breath Discharge diagnosis: 1. Acute tracheobronchitis 2. Acute on chronic hypoxic respiratory failure 3. Bilateral diaphragm weakness 4. common Variable immunodeficiency History of present illness: Patient is a 64-year-old female with a past medical history of COPD, chronic hypoxic respiratory failure on 3.5-4 L nasal cannula, chronic pain, and agranulocytosis who presented to the emergency department at the direction of Dr. Johnson for failed outpatient treatment of upper respiratory tract infection and COPD exacerbation. In the ER she underwent an extensive evaluation. Initial vital signs within normal limits. Initial laboratory analysis was unremarkable other than a mildly elevated AST and ALT or near her baseline, and a mildly elevated creatinine which is scantly near her baseline. Influenza was negative. Chest x-ray as reviewed by myself demonstrates elevation of both hemidiaphragms with fluid in the right major fissure and atelectasis or infiltrate bilaterally. In the ER she was given a dose of Levaquin, Solu- Medrol, bronchodilators. She was admitted for further monitoring. Pulmonology was consulted. She was continued on steroids which were transitioned to Solu- Cortef secondary to her history of adrenal insufficiency. Bronchodilators were optimized. IV Levaquin was continued. Infectious disease was consulted who agreed with IV Levaquin therapy. Labs were drawn for possible myasthenia gravis. Hospital course: With antibiotics, systemic steroids and bronchodilators and aggressive pulmonary toilet patient condition slowly improving. She had very slow and protracted course with slow improvement but there was no any acute complications during hospitalization. Patient slowly started to mobilize and ambulate in the room without significant shortness of breath. Oxygen requirements decreased to the home level which is 3-4 L. She remained afebrile. With aggressive pulmonary toilet patient was able to expectorate more of the sputum with clearance of purulence. Ach receptor antibodies were negative. Patient reported many years of diaphragm weakness and did not want any further workup and she stated that her primary doctor and theatre director already aware of that and following on that. Blood cultures and sputum cultures remain negative Disposition: Patient on the day of discharge felt that she is sufficiently well and respiratory status to be satisfactory to be discharged home and she expresses desire to be discharged home. Patient was cleared by pulmonary service to be discharged home She will finish 3 more days of Levaquin for total of 10 days. She will also finish prednisone taper. Patient reported having supplies of nebulizer bronchodilators albuterol and the added Pulmicort. She is going to continue her Bactrim. Patient was informed that after she finishes her taper of prednisone she should continue her usual daily prednisone. Next and she is to follow-up with primary care physician and her theatre director next week as ordered Overall, I informed the patient that she most likely will not have a very protracted course as she has lots of difficulties with clearing secretions from her airways due to weak cough from the diaphragms and to expect protracted course of coughing. She is encouraged to be as much as possibly mobile and ambulatory to use incentive spirometer at home and to continue physical therapy. Also patient was advised to minimize and to wean off some of her medications with sedating effects. 45 minutes spent in discharge Patient Condition at Discharge: Fair Plan - Discharge Summary Discharge Rx Participant: Yes New Discharge Prescriptions: New Levofloxacin [Levaquin] 750 mg PO 1600 #3 tab guaiFENesin [Mucinex] 600 mg PO Q12HR PRN #12 tablet.er PRN Reason: Cough predniSONE See Taper PO DAILY #30 tab Budesonide [Pulmicort] 0.5 mg INHALATION BID #30 neb Albuterol Nebulized [Ventolin Nebulized] 2.5 mg INHALATION Q4H #60 nebu Continue rOPINIRole HCL [Requip] 2 mg PO HS Lovastatin [Mevacor] 20 mg PO DAILY predniSONE [Prednisone] 5 mg PO DAILY@1200 Montelukast [Singulair] 10 mg PO HS Buprenorphine HCl [Belbuca] 150 mcg BUCCAL Q12H DULoxetine HCL [Cymbalta] 30 mg PO HS Levothyroxine Sodium [Synthroid] 300 mcg PO DAILY Topiramate [Topamax] 100 mg PO BID Meclizine HCl 25 mg PO TID PRN PRN Reason: Vertigo [facility] 1 dose SQ Q14D Sulfamethox-Tmp 800-160Mg [Bactrim DS 800-160 mg] 1 tab PO MOWEFR #0 Changed Gabapentin [Neurontin] 100 mg PO BID #0 Discontinued traMADol HCl [Ultram] 50 mg PO QID Ondansetron [Zofran ODT] 8 mg PO Q8HR PRN PRN Reason: Nausea And Vomiting Mirtazapine [Remeron] 30 mg PO HS Baclofen 10 mg PO QID PRN PRN Reason: Muscle Spasm Topiramate [Topamax] 25 mg PO BID predniSONE See Taper PO DIRECTED Sulfamethox-Tmp 800-160Mg [Bactrim DS 800-160 mg] 1 tab PO Q12HR Benzonatate [Tessalon Perles] 200 mg PO TID PRN PRN Reason: Cough Diclofenac Sodium [Voltaren] 75 mg PO BID Discharge Medication List Lovastatin [Mevacor] 20 mg PO DAILY 02/14/14 [History] rOPINIRole HCL [Requip] 2 mg PO HS 02/14/14 [History] predniSONE [Prednisone] 5 mg PO DAILY@1200 11/05/15 [History] Montelukast [Singulair] 10 mg PO HS 01/21/17 [History] Buprenorphine HCl [Belbuca] 150 mcg BUCCAL Q12H 02/23/19 [History] DULoxetine HCL [Cymbalta] 30 mg PO HS 02/23/19 [History] Levothyroxine Sodium [Synthroid] 300 mcg PO DAILY 02/23/19 [History] Topiramate [Topamax] 100 mg PO BID 02/23/19 [History] [facility] 1 dose SQ Q14D 08/05/19 [History] Meclizine HCl 25 mg PO TID PRN 08/05/19 [History] Albuterol Nebulized [Ventolin Nebulized] 2.5 mg INHALATION Q4H #60 nebu 08/12/19 [Rx] Budesonide [Pulmicort] 0.5 mg INHALATION BID #30 neb 08/12/19 [Rx] Gabapentin [Neurontin] 100 mg PO BID #0 08/12/19 [Rx] Levofloxacin [Levaquin] 750 mg PO 1600 #3 tab 08/12/19 [Rx] Sulfamethox-Tmp 800-160Mg [Bactrim DS 800-160 mg] 1 tab PO MOWEFR #0 08/12/19 [Rx] guaiFENesin [Mucinex] 600 mg PO Q12HR PRN #12 tablet.er 08/12/19 [Rx] predniSONE See Taper PO DAILY #30 tab 08/12/19 [Rx] Follow up Appointment(s)/Referral(s): Maikel Johnson MD [Primary Care Provider] - 08/17/19 12:00 pm Sumeet Steven DO [Doctor of Osteopathic Medicine] - 08/23/19 1:30 pm Ambulatory/Diagnostic Orders: Basic Metabolic Panel [LAB.AMB] Time Frame: 3 Days, Location: None Selected Magnesium [LAB.AMB] Time Frame: 3 Days, Location: None Selected Patient Instructions/Handouts: Potassium Content of Foods List (DC), Acute Bronchitis (GEN) Discharge Disposition: HOME SELF-CARE
[2019-08-12] MEDS ORDERED: GABAPENTIN 100 MG CAP PO SCH (21:00)
== END 2019-08-12 16:54 | disposition home or self-care (01) | DRG 190 ==
LOC: EC 15:48 → 4SSUR 17:58
PROVIDERS: ADMIT Internal Medicine; ATTEND Internal Medicine
DX: J44.1 Chronic obstructive pulmonary disease with (acute) exacerbation (principal); J18.9 Pneumonia, unspecified organism; J96.21 Acute and chronic respiratory failure with hypoxia; J96.22 Acute and chronic respiratory failure with hypercapnia; D83.9 Common variable immunodeficiency, unspecified; E27.40 Unspecified adrenocortical insufficiency; J98.11 Atelectasis; K90.9 Intestinal malabsorption, unspecified; J44.0 Chronic obstructive pulmonary disease with (acute) lower respiratory infection; J98.4 Other disorders of lung; J98.6 Disorders of diaphragm; E83.51 Hypocalcemia; G70.89 Other specified myoneural disorders; C44.91 Basal cell carcinoma of skin, unspecified; E03.9 Hypothyroidism, unspecified; E78.5 Hyperlipidemia, unspecified; E87.6 Hypokalemia; J20.9 Acute bronchitis, unspecified; K21.9 Gastro-esophageal reflux disease without esophagitis; K44.9 Diaphragmatic hernia without obstruction or gangrene; M81.0 Age-related osteoporosis without current pathological fracture; G47.30 Sleep apnea, unspecified; G89.29 Other chronic pain; R74.0 Nonspecific elevation of levels of transaminase and lactic acid dehydrogenase [LDH]; R53.81 Other malaise; Z79.2 Long term (current) use of antibiotics; Z79.51 Long term (current) use of inhaled steroids; Z79.52 Long term (current) use of systemic steroids; Z79.890 Hormone replacement therapy; Z79.899 Other long term (current) drug therapy; Z99.81 Dependence on supplemental oxygen; Z96.652 Presence of left artificial knee joint; Z90.710 Acquired absence of both cervix and uterus; Z86.79 Personal history of other diseases of the circulatory system; Z87.01 Personal history of pneumonia (recurrent); Z88.8 Allergy status to other drugs, medicaments and biological substances; Z88.6 Allergy status to analgesic agent; Z88.1 Allergy status to other antibiotic agents; Z91.030 Bee allergy status; Z91.041 Radiographic dye allergy status; Z88.0 Allergy status to penicillin; Z91.013 Allergy to seafood
CPT/HCPCS: 36415; 36600; 71045; 71046; 80048; 80053; 82040; 82330; 82784; 82805; 83519; 83735; 83880; 84132; 84145; 84439; 84443; 85025; 85027; 85610; 85730; 86140; 87040; 87070; 87205; 87502; 93005; 94640; 94667; 94668; 94760; 96361; 96374; 99285

== ENCOUNTER 2019-09-03 16:52 | Inpatient (IN) | payer BC ==
--- NOTE | 2019-09-03 17:29 | ED ---
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 She states that she has felt more short of breath over the past several days. He says of this she has had several syncopal episodes. States that she fell last night and hit her head. She also fell onto her lumbar spine is complaining of low back pain. She does have pain that radiates into her right leg however states that this is chronic for her. She does take buprenorphine for chronic pain. She denies any weakness in her lower extremities. No headaches or visual changes patient. No reported confusion. She denies a cough or hemoptysis. No fevers or chills. Denies any nausea or vomiting. No recent travel or sick contacts. Denies any lower extremity edema. His been using her nebulizer at directed however it hasn't helped her symptoms. She was recently hospitalized for similar. Here in alleviating, precipitating or modifying factors - Related Data Home Medications Medication Instructions Recorded Confirmed Lovastatin [Mevacor] 20 mg PO DAILY 02/14/14 09/03/19 rOPINIRole HCL [Requip] 2 mg PO HS 02/14/14 09/03/19 predniSONE [Prednisone] 5 mg PO DAILY 11/05/15 09/03/19 Montelukast [Singulair] 10 mg PO HS 01/21/17 09/03/19 Buprenorphine HCl [Belbuca] 150 mcg BUCCAL Q12H 02/23/19 09/03/19 DULoxetine HCL [Cymbalta] 30 mg PO HS 02/23/19 09/03/19 Levothyroxine Sodium [Synthroid] 300 mcg PO DAILY 02/23/19 09/03/19 Topiramate [Topamax] 100 mg PO BID 02/23/19 09/03/19 [facility] 1 dose SQ Q14D 08/05/19 09/03/19 Albuterol Nebulized [Ventolin 2.5 mg INHALATION RT-Q4H PRN 09/03/19 09/03/19 Nebulized] Alendronate Sodium [Fosamax] 70 mg PO Q7D 09/03/19 09/03/19 Benzonatate [Tessalon Perles] 100 mg PO TID PRN 09/03/19 09/03/19 Budesonide [Pulmicort] 0.5 mg INHALATION RT-BID 09/03/19 09/03/19 Diclofenac Sodium [Voltaren] 75 mg PO BID 09/03/19 09/03/19 Formoterol Fumarate [Perforomist] 20 mcg INHALATION RT-BID 09/03/19 09/03/19 Mirtazapine 30 mg PO HS 09/03/19 09/03/19 Mupirocin 2% Oint [Bactroban 2% 1 applic TOPICAL TID 09/03/19 09/03/19 Oint] Topiramate [Topamax] 25 mg PO DAILY 09/03/19 09/03/19 Triamcinolone Acetonide 1 applic TOPICAL BID 09/03/19 09/03/19 [Triamcinolone Acetonide 0.025%] Previous Rx's Medication Instructions Recorded Sulfamethox-Tmp 800-160Mg [Bactrim 1 tab PO MOWEFR #0 08/12/19 DS 800-160 mg] Allergies Allergy/AdvReac Type Severity Reaction Status Date / Time aspirin Allergy Rash/Hives Verified 09/03/19 21:06 bee pollen Allergy Anaphylaxis Verified 09/03/19 21:06 cefdinir [From Omnicef] Allergy Anaphylaxis Verified 09/03/19 21:06 clarithromycin [From Biaxin] Allergy Anaphylaxis Verified 09/03/19 21:06 ibuprofen [From Advil] Allergy Anaphylaxis Verified 09/03/19 21:06 Iodinated Contrast Media Allergy SWELLING Verified 09/03/19 21:06 [Iodinated Contrast Media - OF THROAT IV Dye] iodine Allergy Anaphylaxis Verified 09/03/19 21:06 omalizumab [From Xolair] Allergy Anaphylaxis Verified 09/03/19 21:06 prochlorperazine edisylate Allergy Rash/Hives Verified 09/03/19 21:06 [From Compazine] prochlorperazine maleate Allergy Rash/Hives Verified 09/03/19 21:06 [From Compazine] shellfish derived Allergy Anaphylaxis Verified 09/03/19 21:06 Penicillins AdvReac Dyspnea Verified 09/03/19 21:06 Review of Systems ROS Statement: Those systems with pertinent positive or pertinent negative responses have been documented in the HPI. ROS Other: All systems not noted in ROS Statement are negative. 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, adrenal insufficiency, hiatal hernia, basal cell carcinoma of the skin, uses cane , uses oxygen continous at 3L, irregular bowel movements, hx endocarditis,osteoporosis, hx fx spine agammaglobulinemia History of Any Multi-Drug Resistant Organisms: None Reported Past Surgical History: Adenoidectomy, Appendectomy, Back Surgery, Breast Surgery, Cholecystectomy, Hysterectomy, Joint Replacement, Tonsillectomy Additional Past Surgical History / Comment(s): left knee replacement, left knee arthroscopy, breast biopsy-rt, mino breast reduction, hemorrhoidectomy, back surgery fusion with additional surgery X1, Past Anesthesia/Blood Transfusion Reactions: Family History of Problems w/ Anesthesia, Motion Sickness Additional Past Anesthesia/Blood Transfusion Reaction / Comment(s): "brother was awake during whole surgery" Past Psychological History: No Psychological Hx Reported Smoking Status: Never smoker Past Alcohol Use History: None Reported Past Drug Use History: None Reported - Past Family History Mother Family Medical History: Cancer Father Family Medical History: Cancer General Exam Limitations: no limitations Course Vital Signs 09/03/19 09/03/19 09/03/19 16:53 17:42 17:51 Temperature 97.9 F Pulse Rate 97 96 100 Respiratory 24 Rate Blood Pressure 149/89 O2 Sat by Pulse 96 Oximetry 09/03/19 09/03/19 18:00 19:37 Temperature Pulse Rate 79 81 Respiratory 18 18 Rate Blood Pressure 129/84 138/76 O2 Sat by Pulse 94 L 96 Oximetry Medical Decision Making - Medical Decision Making Upon arrival the patient was placed into room 5. A thorough history and physical exam was performed. The patient is placed on 6 L via nasal cannula. Physical exam does demonstrate tachypnea and conversational dyspnea recommend laboratory studies. The patient did provide the placed. She is given 125 mg of Solu-Medrol, 1 g of magnesium and a DuoNeb breathing treatment. CBC, CMP and coagulation studies are essentially unremarkable. The patient was sent for a chest x-ray, head and cervical spine CT and lumbar spine CT because of a reported syncopal episode with fall. CT of the brain and cervical spine demo nstrates no acute findings or fractures. Chest x-ray demonstrates significant atelectasis with elevated diaphragms. Lumbar spine CT demonstrates a T12 25% compression deformity with vertebroplasty. No acute fractures. I reevaluated the patient. I discussed diagnosis, differential and treatment options. I did recommend hospital admission as the patient does have increased O2 requirements. The patient did agree to this. A call discuss case with Dr. Castro ccepted admission. I will place trauma on consult. The patient remained in stable condition was transported to the floor - Lab Data Result diagrams: 09/03/19 17:59 09/03/19 17:59 Lab Results 09/03/19 09/03/19 09/03/19 Range/Units 17:59 17:59 17:59 WBC 6.7 (3.8-10.6) k/uL RBC 3.51 L (3.80-5.40) m/uL Hgb 11.7 (11.4-16.0) gm/dL Hct 34.5 (34.0-46.0) % MCV 98.3 (80.0-100.0) fL MCH 33.2 (25.0-35.0) pg MCHC 33.8 (31.0-37.0) g/dL RDW 15.9 H (11.5-15.5) % Plt Count 205 (150-450) k/uL Neutrophils % (Manual) 73 % Band Neutrophils % 1 % Lymphocytes % (Manual) 17 % Monocytes % (Manual) 8 % Eosinophils % (Manual) 1 % Neutrophils # (Manual) 4.90 (1.3-7.7) k/uL Lymphocytes # (Manual) 1.14 (1.0-4.8) k/uL Monocytes # (Manual) 0.54 (0-1.0) k/uL Eosinophils # (Manual) 0.07 (0-0.7) k/uL Nucleated RBCs 0 (0-0) /100 WBC Manual Slide Review Performed Poikilocytosis (manual [employer] Anisocytosis (manual) Present Macrocytosis Slight PT 9.6 (9.0-12.0) sec INR 0.9 (<1.2) APTT 21.3 L (22.0-30.0) sec Sodium 141 (137-145) mmol/L Potassium 4.0 (3.5-5.1) mmol/L Chloride 104 (98-107) mmol/L Carbon Dioxide 29 (22-30) mmol/L Anion Gap 8 mmol/L BUN 25 H (7-17) mg/dL Creatinine 1.19 H (0.52-1.04) mg/dL Est GFR (CKD-EPI)AfAm 56 (>60 ml/min/1.73 sqM) Est GFR (CKD-EPI)NonAf 48 (>60 ml/min/1.73 sqM) Glucose 88 (74-99) mg/dL Plasma Lactic Acid Carlos (0.7-2.0) mmol/L Calcium 9.2 (8.4-10.2) mg/dL Magnesium 2.2 (1.6-2.3) mg/dL Total Bilirubin 0.4 (0.2-1.3) mg/dL AST 37 H (14-36) U/L ALT 22 (4-34) U/L Alkaline Phosphatase 52 (38-126) U/L Troponin I (0.000-0.034) ng/mL NT-Pro-B Natriuret Pep pg/mL Total Protein 7.7 (6.3-8.2) g/dL Albumin 4.4 (3.5-5.0) g/dL 09/03/19 09/03/19 09/03/19 Range/Units 17:59 17:59 18:06 WBC (3.8-10.6) k/uL RBC (3.80-5.40) m/uL Hgb (11.4-16.0) gm/dL Hct (34.0-46.0) % MCV (80.0-100.0) fL MCH (25.0-35.0) pg MCHC (31.0-37.0) g/dL RDW (11.5-15.5) % Plt Count (150-450) k/uL Neutrophils % (Manual) % Band Neutrophils % % Lymphocytes % (Manual) % Monocytes % (Manual) % Eosinophils % (Manual) % Neutrophils # (Manual) (1.3-7.7) k/uL Lymphocytes # (Manual) (1.0-4.8) k/uL Monocytes # (Manual) (0-1.0) k/uL Eosinophils # (Manual) (0-0.7) k/uL Nucleated RBCs (0-0) /100 WBC Manual Slide Review Poikilocytosis (manual Anisocytosis (manual) Macrocytosis PT (9.0-12.0) sec INR (<1.2) APTT (22.0-30.0) sec Sodium (137-145) mmol/L Potassium (3.5-5.1) mmol/L Chloride (98-107) mmol/L Carbon Dioxide (22-30) mmol/L Anion Gap mmol/L BUN (7-17) mg/dL Creatinine (0.52-1.04) mg/dL Est GFR (CKD-EPI)AfAm (>60 ml/min/1.73 sqM) Est GFR (CKD-EPI)NonAf (>60 ml/min/1.73 sqM) Glucose (74-99) mg/dL Plasma Lactic Acid Carlos 1.4 (0.7-2.0) mmol/L Calcium (8.4-10.2) mg/dL Magnesium (1.6-2.3) mg/dL Total Bilirubin (0.2-1.3) mg/dL AST (14-36) U/L ALT (4-34) U/L Alkaline Phosphatase (38-126) U/L Troponin I <0.012 (0.000-0.034) ng/mL NT-Pro-B Natriuret Pep 36 pg/mL Total Protein (6.3-8.2) g/dL Albumin (3.5-5.0) g/dL - EKG Data EKG Comments: EKG demonstrates a normal sinus rhythm with ventricular rate of 74. QRS 94. QTC of 441. There is an incomplete right bundle branch block. No acute ST segment elevations or depressions concerning for ischemic changes Disposition Clinical Impression: COPD exacerbation, Syncope, Blunt head trauma, Low back pain, Chronic respiratory failure Disposition: ADMITTED IP TO THIS HOSP Condition: Stable Is patient prescribed a controlled substance at d/c from ED?: No Decision to Admit Reason: Admit from EC Decision Date: 09/03/19 Decision Time: 19:49
[2019-09-03] MEDS ORDERED: MAGNESIUM SULFATE-D5W PMX 1 GM in DEXTROSE/WATER 1 100ML.BAG IVPB STA (17:31)
[2019-09-03] MEDS ORDERED: methylPREDNISolone SOD SUCCI 125 MG/2 ML VIAL IV STA (17:31)
[2019-09-03] MEDS ORDERED: IPRATROPIUM-ALBUTEROL 3 ML NEB INHALATION STA (17:31)
[2019-09-03 18:18] LABS: HCT 34.5 % (34.0-46.0); HGB 11.7 gm/dL (11.4-16.0); MCH 33.2 pg (25.0-35.0); MCHC 33.8 g/dL (31.0-37.0); MCV 98.3 fL (80.0-100.0); Macrocytosis Slight; Mean Platelet Volume 8.5; Platelet Count 205 k/uL (150-450); RBC 3.51 m/uL (3.80-5.40); RDW 15.9 % (11.5-15.5); WBC 6.7 k/uL (3.8-10.6)
[2019-09-03 18:24] LABS: Albumin 4.4 g/dL (3.5-5.0); Calcium 9.2 mg/dL (8.4-10.2); Magnesium 2.2 mg/dL (1.6-2.3); Total Bilirubin 0.4 mg/dL (0.2-1.3); Total Protein 7.7 g/dL (6.3-8.2)
--- NOTE | 2019-09-03 18:49 | CT ---
EXAMINATION TYPE: CT brain lindsay wo con DATE OF EXAM: 09/03/2019 COMPARISON: 02/23/2019 HISTORY: syncope, bht CT DLP: 1248.6 mGycm Automated exposure control for dose reduction was used. Multiple axial sections were obtained of the brain without contrast. Multiple axial sections were obt ained from the skull base to T1 vertebra without contrast. Ventricles and sulci appear normal. There is no mass effect nor midline shift. There is no sign of in tracranial hemorrhage. The calvarium is intact. There is no evidence of cerebral edema. There is some straightening of the cervical spine. Disc spaces are fairly normal. Facet joints are in tact. The skull base is intact. There is no evidence of a fracture. Prevertebral soft tissues appear normal. IMPRESSION: Negative CT scan of the brain. No change. Minor spondylotic changes in the cervical spine. No fracture.
--- NOTE | 2019-09-03 18:52 | XR ---
EXAMINATION TYPE: XR chest 2V DATE OF EXAM: 09/03/2019 COMPARISON: 08/09/2019 HISTORY: Short of breath TECHNIQUE: FINDINGS: There is elevated left and right diaphragm. There is very poor inspiration with atelectasis at the lung bases. Heart size is probably normal. There is no gross heart failure. IMPRESSION: Significant atelectasis at the lung bases. Elevated diaphragms. No significant change. No overt heart failure.
--- NOTE | 2019-09-03 18:54 | CT ---
EXAMINATION TYPE: CT lumbar spine wo con DATE OF EXAM: 09/03/2019 COMPARISON: None HISTORY: pain after fall CT DLP: 750.8 mGycm Automated exposure control for dose reduction was used. There is 5 mm anterior subluxation of L4 in relation L5. There is no spondylolysis. There is T12 25% compression deformity with vertebroplasty. I see no acute fracture. There is no lumbar paraspinal mas s. The sacroiliac joints appear intact. There is previous posterior fusion surgery in the lower lumba r spine. Sacroiliac joints appear intact. IMPRESSION: Degenerative first-degree L4-5 spondylolisthesis. No acute fracture seen.
[2019-09-03 19:02] LABS: INR 0.9 (<1.2); Prothrombin Time 9.6 sec (9.0-12.0)
[2019-09-03 19:09] LABS: Partial Thromboplastin Time 21.3 sec (22.0-30.0)
[2019-09-03 19:18] LABS: Eosinophils # (M) 0.07 k/uL (0-0.7); Nucleated Red Blood Cells 0 /100 WBC (0-0); Total Cells Counted 100
[2019-09-03] MEDS ORDERED: NALOXONE 0.4 MG/ML 1 ML VIAL IV PRN (19:49)
[2019-09-03 20:18] LABS: Band Neutrophils % 1 %; Lymphocytes # (M) 1.14 k/uL (1.0-4.8); Monocytes # (M) 0.54 k/uL (0-1.0); Neutrophils % (M) 73 %
[2019-09-03 20:19] LABS: Anisocytosis (M) Present
[2019-09-03] MEDS: IPRATROPIUM-ALBUTEROL 3 ML NEB INHALATION SCH ×2 (21:12→23:54)
[2019-09-03] MEDS ORDERED: ALBUTEROL NEBULIZED 2.5 MG/3 ML INHALATION PRN (21:23)
[2019-09-03] MEDS ORDERED: BENZONATATE 100 MG CAP PO PRN (22:00)
[2019-09-03] MEDS ORDERED: MIRTAZAPINE 15 MG TAB PO SCH (22:00)
[2019-09-03] MEDS: DULoxetine HCL 30 MG CAPSULE.DR PO SCH (23:03)
[2019-09-03] MEDS: ETODOLAC 400 MG TAB PO SCH ×2 (23:03→23:58)
[2019-09-03] MEDS: MUPIROCIN 2% OINT 22 GM TUBE TOPICAL SCH (23:05)
[2019-09-03] MEDS: TOPIRAMATE 100 MG TAB PO SCH (23:14)
[2019-09-03] MEDS: MONTELUKAST 10 MG TAB PO SCH (23:14)
[2019-09-03] MEDS: BUDESONIDE 0.5 MG/2 ML NEBU INHALATION SCH (23:29)
[2019-09-03] MEDS: FORMOTEROL FUMARATE 20 MCG/2 ML NEBU INHALATION SCH (23:29)
[2019-09-03] MEDS: BUPRENORPHINE HCL 150 MCG SUBLINGUAL SCH (23:40)
[2019-09-04] MEDS ORDERED: BACLOFEN 10 MG TAB PO PRN (01:45)
[2019-09-04] MEDS: traMADol 50 MG TAB PO PRN ×2 (02:05→21:52)
[2019-09-04] MEDS: IPRATROPIUM-ALBUTEROL 3 ML NEB INHALATION SCH ×6 (05:11→23:40)
[2019-09-04] MEDS: LEVOTHYROXINE 100 MCG TAB PO SCH (05:48)
[2019-09-04] MEDS: TOPIRAMATE 25 MG TAB PO SCH (08:09)
[2019-09-04] MEDS: ATORVASTATIN 10 MG TAB PO SCH (08:09)
[2019-09-04] MEDS: TOPIRAMATE 100 MG TAB PO SCH ×2 (08:09→21:53)
[2019-09-04] MEDS: methylPREDNISolone SOD SUCCI 40 MG/ML 1 ML VIAL IV SCH ×3 (08:10→23:42)
[2019-09-04] MEDS: MUPIROCIN 2% OINT 22 GM TUBE TOPICAL SCH ×3 (08:12→21:54)
[2019-09-04] MEDS: TRIAMCINOLONE ACET 0.1% OINTMENT 15 GM TUBE TOPICAL SCH ×2 (08:12→21:53)
[2019-09-04] MEDS: FORMOTEROL FUMARATE 20 MCG/2 ML NEBU INHALATION SCH ×2 (09:32→20:23)
[2019-09-04] MEDS: BUDESONIDE 0.5 MG/2 ML NEBU INHALATION SCH ×2 (09:32→20:23)
[2019-09-04] MEDS: BUPRENORPHINE HCL 150 MCG SUBLINGUAL SCH ×2 (09:45→23:42)
--- NOTE | 2019-09-04 11:34 | P.GSCN ---
History of Present Illness Consult date: 09/04/19 Reason for Consult: Fall History of present illness: The patient is a 64-year-old female who went to the emergency department with being more short of breath. She had also fallen the night prior and hit her head. Last night she was getting out of the shower and slipped on a towel. She does have back mass but did not use them She also complains of some pain in the lower back. Denies chest pain, abdominal pain, nausea or vomiting. Admits to worsening cough and increasing shortness of breath. The patient does admit to increase in the frequency of her falls. She usually just uses a cane. She has a walker but does not use it. 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, adrenal insufficiency, hiatal hernia, basal cell carcinoma of the skin, uses cane , uses oxygen continous at 3L, irregular bowel movements, hx endocarditis,osteoporosis, hx fx spine agammaglobulinemia History of Any Multi-Drug Resistant Organisms: None Reported Past Surgical History: Adenoidectomy, Appendectomy, Back Surgery, Breast Surgery, Cholecystectomy, Hysterectomy, Joint Replacement, Tonsillectomy Additional Past Surgical History / Comment(s): left knee replacement, left knee arthroscopy, breast biopsy-rt, mino breast reduction, hemorrhoidectomy, back surgery fusion with additional surgery X1, Past Anesthesia/Blood Transfusion Reactions: Family History of Problems w/ Anesthesia, Motion Sickness Additional Past Anesthesia/Blood Transfusion Reaction / Comm: "brother was awake during whole surgery" Past Psychological History: No Psychological Hx Reported Smoking Status: Never smoker Past Alcohol Use History: None Reported Past Drug Use History: None Reported - Past Family History Mother Family Medical History: Cancer Father Family Medical History: Cancer Medications and Allergies Home Medications Medication Instructions Recorded Confirmed Type Lovastatin [Mevacor] 20 mg PO DAILY 02/14/14 09/03/19 History rOPINIRole HCL [Requip] 2 mg PO HS 02/14/14 09/03/19 History predniSONE [Prednisone] 5 mg PO DAILY 11/05/15 09/03/19 History Montelukast [Singulair] 10 mg PO HS 01/21/17 09/03/19 History Buprenorphine HCl [Belbuca] 150 mcg BUCCAL Q12H 02/23/19 09/03/19 History DULoxetine HCL [Cymbalta] 30 mg PO HS 02/23/19 09/03/19 History Levothyroxine Sodium [Synthroid] 300 mcg PO DAILY 02/23/19 09/03/19 History Topiramate [Topamax] 100 mg PO BID 02/23/19 09/03/19 History Hizentra Home Infusion 1 dose SQ Q14D 08/05/19 09/03/19 History Sulfamethox-Tmp 800-160Mg [Bactrim 1 tab PO MOWEFR #0 08/12/19 09/03/19 Rx DS 800-160 mg] Albuterol Nebulized [Ventolin 2.5 mg INHALATION RT-Q4H PRN 09/03/19 09/03/19 History Nebulized] Alendronate Sodium [Fosamax] 70 mg PO Q7D 09/03/19 09/03/19 History Benzonatate [Tessalon Perles] 100 mg PO TID PRN 09/03/19 09/03/19 History Budesonide [Pulmicort] 0.5 mg INHALATION RT-BID 09/03/19 09/03/19 History Diclofenac Sodium [Voltaren] 75 mg PO BID 09/03/19 09/03/19 History Formoterol Fumarate [Perforomist] 20 mcg INHALATION RT-BID 09/03/19 09/03/19 History Mirtazapine 30 mg PO HS 09/03/19 09/03/19 History Mupirocin 2% Oint [Bactroban 2% 1 applic TOPICAL TID 09/03/19 09/03/19 History Oint] Topiramate [Topamax] 25 mg PO DAILY 09/03/19 09/03/19 History Triamcinolone Acetonide 1 applic TOPICAL BID 09/03/19 09/03/19 History [Triamcinolone Acetonide 0.025%] Allergies Allergy/AdvReac Type Severity Reaction Status Date / Time aspirin Allergy Rash/Hives Verified 09/03/19 21:06 bee pollen Allergy Anaphylaxis Verified 09/03/19 21:06 cefdinir [From Omnicef] Allergy Anaphylaxis Verified 02/08/20 21:06 clarithromycin [From Biaxin] Allergy Anaphylaxis Verified 09/03/19 21:06 ibuprofen [From Advil] Allergy Anaphylaxis Verified 09/03/19 21:06 Iodinated Contrast Media Allergy SWELLING Verified 09/03/19 21:06 [Iodinated Contrast Media - OF THROAT IV Dye] iodine Allergy Anaphylaxis Verified 09/03/19 21:06 omalizumab [From Xolair] Allergy Anaphylaxis Verified 09/03/19 21:06 prochlorperazine edisylate Allergy Rash/Hives Verified 09/03/19 21:06 [From Compazine] prochlorperazine maleate Allergy Rash/Hives Verified 09/03/19 21:06 [From Compazine] shellfish derived Allergy Anaphylaxis Verified 09/03/19 21:06 Penicillins AdvReac Dyspnea Verified 09/03/19 21:06 Surgical - Exam Osteopathic Statement: *. No significant issues noted on an osteopathic structural exam other than those noted in the History and Physical/Consult. Vital Signs Temp Pulse Resp BP Pulse Ox 97.9 F 97 24 149/89 96 09/03/19 16:53 09/03/19 16:53 09/03/19 16:53 09/03/19 16:53 09/03/19 16:53 - General Coughing frequently during exam, slight conversational dyspnea well developed, well nourished - Eyes normal ocular movement - Neck trachea midline - Respiratory Bilateral rhonchi bilateral: wheezing - Abdomen Abdomen: soft, non tender - Musculoskeletal Some tenderness to palpation on the occiput without any evidence of hematoma or swelling. Mild tenderness to palpation over the lower lumbar/sacral area. No hematoma or erythema seen Results - Labs 09/03/19 17:59 09/03/19 17:59 Abnormal Lab Results - Last 24 Hours (Table) 09/03/19 09/03/19 09/03/19 Range/Units 17:59 17:59 17:59 RBC 3.51 L (3.80-5.40) m/uL RDW 15.9 H (11.5-15.5) % APTT 21.3 L (22.0-30.0) sec BUN 25 H (7-17) mg/dL Creatinine 1.19 H (0.52-1.04) mg/dL AST 37 H (14-36) U/L Diabetes panel 09/03/19 Range/Units 17:59 Sodium 141 (137-145) mmol/L Potassium 4.0 (3.5-5.1) mmol/L Chloride 104 (98-107) mmol/L Carbon Dioxide 29 (22-30) mmol/L BUN 25 H (7-17) mg/dL Creatinine 1.19 H (0.52-1.04) mg/dL Glucose 88 (74-99) mg/dL Calcium 9.2 (8.4-10.2) mg/dL AST 37 H (14-36) U/L ALT 22 (4-34) U/L Alkaline Phosphatase 52 (38-126) U/L Total Protein 7.7 (6.3-8.2) g/dL Albumin 4.4 (3.5-5.0) g/dL Calcium panel 09/03/19 Range/Units 17:59 Calcium 9.2 (8.4-10.2) mg/dL Albumin 4.4 (3.5-5.0) g/dL Pituitary panel 09/03/19 Range/Units 17:59 Sodium 141 (137-145) mmol/L Potassium 4.0 (3.5-5.1) mmol/L Chloride 104 (98-107) mmol/L Carbon Dioxide 29 (22-30) mmol/L BUN 25 H (7-17) mg/dL Creatinine 1.19 H (0.52-1.04) mg/dL Glucose 88 (74-99) mg/dL Calcium 9.2 (8.4-10.2) mg/dL Adrenal panel 09/03/19 Range/Units 17:59 Sodium 141 (137-145) mmol/L Potassium 4.0 (3.5-5.1) mmol/L Chloride 104 (98-107) mmol/L Carbon Dioxide 29 (22-30) mmol/L BUN 25 H (7-17) mg/dL Creatinine 1.19 H (0.52-1.04) mg/dL Glucose 88 (74-99) mg/dL Calcium 9.2 (8.4-10.2) mg/dL Total Bilirubin 0.4 (0.2-1.3) mg/dL AST 37 H (14-36) U/L ALT 22 (4-34) U/L Alkaline Phosphatase 52 (38-126) U/L Total Protein 7.7 (6.3-8.2) g/dL Albumin 4.4 (3.5-5.0) g/dL - Imaging Comments: CT reports were reviewed CT scan - abdomen: report reviewed Assessment and Plan (1) At high risk for falls Current Visit: Yes Status: Acute Code(s): Z91.81 - HISTORY OF FALLING SNOMED Code(s): 545975605627705233 (2) COPD exacerbation Current Visit: Yes Status: Acute Code(s): J44.1 - CHRONIC OBSTRUCTIVE PULMONARY DISEASE W (ACUTE) EXACERBATION SNOMED Code(s): 779502303 (3) Chronic respiratory failure Current Visit: Yes Status: Acute Code(s): J96.10 - CHRONIC RESPIRATORY FAILURE, UNSP W HYPOXIA OR HYPERCAPNIA SNOMED Code(s): 29499385 (4) Low back pain Current Visit: Yes Status: Acute Code(s): M54.5 - LOW BACK PAIN SNOMED Code(s): 858669356 (5) COPD (chronic obstructive pulmonary disease) Current Visit: No Status: Acute Code(s): J44.9 - CHRONIC OBSTRUCTIVE PUL MONARY DISEASE, UNSPECIFIED SNOMED Code(s): 90448865 Plan: Nonsurgical. Recommend PT OT evaluation and treatment for the frequent falls. Medical treatment for the exacerbation of the COPD. Nonsurgical. We'll follow up as needed.
[2019-09-04] MEDS: LACTATED RINGERS 1,000 ML IV SCH ×2 (13:16→21:53)
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
--- NOTE | 2019-09-04 18:07 | P.HPIM ---
History of Present Illness H&P Date: 09/04/19 Chief Complaint: Short of breath History of presenting complaint: This is a 64-year-old patient who follows a Dr. Maikel Johnson. Chronic stable medical conditions include hypothyroid thyroidism, GERD, hyperlipidemia, bilateral hemidiaphragmatic paralysis, hiatal hernia, agammaglobebemia, chronic hypoxic respiratory failure on home oxygen 5 L, chronic low back pain. Patient presents with the ER feeling more short of breath over the last few days. She'll be also having syncopal episodes. At least twice yesterday. She also fell on the lumbar spine and had some low back pain. Minimal cough no fever no chills the short of breath. Appetite is gone on a bit. Patient has chronic pain. Does use a cane. Has been more shaky. Review of systems: GEN.: Tired EYES: None HEENT: None NECK: None RESPIRATORY: As above CARDIOVASCULAR: None GASTROINTESTINAL: None GENITOURINARY: None MUSCULOSKELETAL: Chronic low back pain LYMPHATICS: None HEMATOLOGICAL: None PSYCHIATRY: None NEUROLOGICAL: As above, with nonspecific type tremors of the limbs and head Past medical history: Asthma, GERD, hyperlipidemia, obstructive sleep apnea, hypothyroid, chronic bilateral hemidiaphragmatic paralysis, hiatal hernia, basal cell carcinoma, home oxygen 5 L, and hepatitis, osteoporosis, fracture of the spine, agammaglobebemia Social history: Does not smoke or drink alcohol. Is a Physical examination: VITAL SIGNS: 97.9-97-24-149/89-96% on 5 L GENERAL: BMI 21.5, laying in bed, tired appearing. EYES: Pupils equal. Conjunctiva normal. HEENT: External appearance of nose and ears normal, oral cavity grossly normal. NECK: JVD not raised; masses not palpable. HEART: First and second heart sounds are normal; no edema. LUNGS: Respiratory rate increased, diminished breath sounds prolonged expiration. ABDOMEN: Soft, nontender, liver spleen not palpable, no masses palpable. PSYCH: Able to answer simple questions. NEUROLOGICAL: Cranial nerves grossly intact; no facial asymmetry, power and sensation grossly intact, some tremor symptoms of the head and the arm. LYMPHATICS: No lymph nodes palpable in the axilla and neck MUSCULOSKELETAL: Wasting of some muscles loss of subcutaneous fat INVESTIGATIONS, reviewed in the clinical context: White count 6.7 hemoglobin 11.7 platelets 205 potassium 4.0 bun 25 creatinine 1.19 ProBNP 36 EKG tracing personally reviewed by me shows possible normal sinus rhythm Chest x-ray film personally reviewed by me-bilateral diaphragmatic elevated, possible atelectasis Lumbar spine x-ray, CT of the head both negative for any acute fracture Assessment: -Acute exacerbation of moderate persistent asthma -Recurrent syncope appears to be multifactorial including muscle weakness, dehydration -Acute renal failure, likely prerenal from decreased oral intake -Hypothyroidism. -GERD -Hyperlipidemia -Chronic bilateral hemidiaphragmatic paralysis -Hiatal hernia -Chronic hypoxic respiratory failure on home oxygen 5 L -Chronic low back pain Plan: Patient was given IV steroids.Bronchodilators. Home medications resumed. We'll also consult PTOT. Fall precautions. At the patient see the dietitian. Primary consulted. Prognosis is guarded. Past Medical History Past Medical History: Asthma, Cancer, COPD, GERD/Reflux, Hyperlipidemia, Pneumonia, Sleep Apnea/CPAP/BIPAP, Thyroid Disorder Additional Past Medical History / Comment(s): Chronic bilateral hemidiaphragma tic elevation/weakness/paralysis, adrenal insufficiency, hiatal hernia, basal cell carcinoma of the skin, uses cane , uses oxygen continous at 3L, irregular bowel movements, hx endocarditis,osteoporosis, hx fx spine agammaglobulinemia History of Any Multi-Drug Resistant Organisms: None Reported Past Surgical History: Adenoidectomy, Appendectomy, Back Surgery, Breast Surgery, Cholecystectomy, Hysterectomy, Joint Replacement, Tonsillectomy Additional Past Surgical History / Comment(s): left knee replacement, left knee arthroscopy, breast biopsy-rt, mino breast reduction, hemorrhoidectomy, back surgery fusion with additional surgery X1, Past Anesthesia/Blood Transfusion Reactions: Family History of Problems w/ Anesthesia, Motion Sickness Additional Past Anesthesia/Blood Transfusion Reaction / Comment(s): "brother was awake during whole surgery" Past Psychological History: No Psychological Hx Reported Smoking Status: Never smoker Past Alcohol Use History: None Reported Past Drug Use History: None Reported - Past Family History Mother Family Medical History: Cancer Father Family Medical History: Cancer Medications and Allergies Home Medications Medication Instructions Recorded Confirmed Type Lovastatin [Mevacor] 20 mg PO DAILY 02/14/14 09/03/19 History rOPINIRole HCL [Requip] 2 mg PO HS 02/14/14 09/03/19 History predniSONE [Prednisone] 5 mg PO DAILY 11/05/15 09/03/19 History Montelukast [Singulair] 10 mg PO HS 01/21/17 09/03/19 History Buprenorphine HCl [Belbuca] 150 mcg BUCCAL Q12H 02/23/19 09/03/19 History DULoxetine HCL [Cymbalta] 30 mg PO HS 02/23/19 09/03/19 History Levothyroxine Sodium [Synthroid] 300 mcg PO DAILY 02/23/19 09/03/19 History Topiramate [Topamax] 100 mg PO BID 02/23/19 09/03/19 History Hizentra Home Infusion 1 dose SQ Q14D 08/05/19 09/03/19 History Sulfamethox-Tmp 800-160Mg [Bactrim 1 tab PO MOWEFR #0 08/12/19 09/03/19 Rx DS 800-160 mg] Albuterol Nebulized [Ventolin 2.5 mg INHALATION RT-Q4H PRN 09/03/19 09/03/19 History Nebulized] Alendronate Sodium [Fosamax] 70 mg PO Q7D 09/03/19 09/03/19 History Benzonatate [Tessalon Perles] 100 mg PO TID PRN 09/03/19 09/03/19 History Budesonide [Pulmicort] 0.5 mg INHALATION RT-BID 09/03/19 09/03/19 History Diclofenac Sodium [Voltaren] 75 mg PO BID 09/03/19 09/03/19 History Formoterol Fumarate [Perforomist] 20 mcg INHALATION RT-BID 09/03/19 09/03/19 History Mirtazapine 30 mg PO HS 09/03/19 09/03/19 History Mupirocin 2% Oint [Bactroban 2% 1 applic TOPICAL TID 09/03/19 09/03/19 History Oint] Topiramate [Topamax] 25 mg PO DAILY 09/03/19 09/03/19 History Triamcinolone Acetonide 1 applic TOPICAL BID 09/03/19 09/03/19 History [Triamcinolone Acetonide 0.025%] Allergies Allergy/AdvReac Type Severity Reaction Status Date / Time aspirin Allergy Rash/Hives Verified 09/03/19 21:06 bee pollen Allergy Anaphylaxis Verified 09/03/19 21:06 cefdinir [From Omnicef] Allergy Anaphylaxis Verified 09/03/19 21:06 clarithromycin [From Biaxin] Allergy Anaphylaxis Verified 09/03/19 21:06 ibuprofen [From Advil] Allergy Anaphylaxis Verified 09/03/19 21:06 Iodinated Contrast Media Allergy SWELLING Verified 09/03/19 21:06 [Iodinated Contrast Media - OF THROAT IV Dye] iodine Allergy Anaphylaxis Verified 09/03/19 21:06 omalizumab [From Xolair] Allergy Anaphylaxis Verified 09/03/19 21:06 prochlorperazine edisylate Allergy Rash/Hives Verified 09/03/19 21:06 [From Compazine] prochlorperazine maleate Allergy Rash/Hives Verified 09/03/19 21:06 [From Compazine] shellfish derived Allergy Anaphylaxis Verified 09/03/19 21:06 Penicillins AdvReac Dyspnea Verified 09/03/19 21:06 Physical Exam Vitals: Vital Signs Temp Pulse Pulse Resp BP BP Pulse Ox 09/04/19 09:53 76 09/04/19 09:44 76 09/04/19 09:32 72 09/04/19 05:22 80 09/04/19 05:10 76 09/04/19 05:00 96.9 F L 64 18 110/78 96 09/04/19 00:10 80 09/04/19 00:00 17 09/03/19 23:55 77 98 09/03/19 21:00 98.3 F 83 20 142/87 94 L 09/03/19 19:37 81 18 138/76 96 09/03/19 18:00 79 18 129/84 94 L 09/03/19 17:51 100 09/03/19 17:42 96 09/03/19 16:53 97.9 F 97 24 149/89 96 Intake and Output 09/03/19 09/04/19 09/04/19 22:59 06:59 14:59 Intake Total 0 450 Balance 0 450 Intake: Oral 0 450 Other: Voiding Method Bedside Commode # Voids 0 0 Weight 62.142 kg Results CBC & Chem 7: 09/03/19 17:59 09/03/19 17:59 Labs: Abnormal Lab Results - Last 24 Hours (Table) 02/08/20 02/08/20 02/08/20 Range/Units 17:59 17:59 17:59 RBC 3.51 L (3.80-5.40) m/uL RDW 15.9 H (11.5-15.5) % APTT 21.3 L (22.0-30.0) sec BUN 25 H (7-17) mg/dL Creatinine 1.19 H (0.52-1.04) mg/dL AST 37 H (14-36) U/L Thrombosis Risk Factor Assmnt - Choose All That Apply Any of the Below Risk Factors Present?: Yes Each Factor Represents 1 point: Abnormal pulmonary function (COPD) Other Risk Factors: Yes Each Risk Factor Represents 2 Points: Age 61-74 years Other congenital or acquired thrombophilia - If yes, enter type in comment: No Thrombosis Risk Factor Assessment Total Risk Factor Score: 3 Thrombosis Risk Factor Assessment Level: Moderate Risk
[2019-09-04] MEDS: MIRTAZAPINE 15 MG TAB PO SCH (21:52)
[2019-09-04] MEDS: MONTELUKAST 10 MG TAB PO SCH (21:52)
[2019-09-04] MEDS: DULoxetine HCL 30 MG CAPSULE.DR PO SCH (21:53)
[2019-09-04] MEDS: ENOXAPARIN 40 MG/0.4 ML SYRINGE SQ SCH (22:03)
[2019-09-05] MEDS: IPRATROPIUM-ALBUTEROL 3 ML NEB INHALATION SCH ×5 (03:38→22:04)
[2019-09-05] MEDS: LACTATED RINGERS 1,000 ML IV SCH ×3 (06:28→20:24)
[2019-09-05] MEDS: LEVOTHYROXINE 100 MCG TAB PO SCH (06:29)
[2019-09-05] MEDS: FORMOTEROL FUMARATE 20 MCG/2 ML NEBU INHALATION SCH ×2 (07:33→22:04)
[2019-09-05] MEDS: BUDESONIDE 0.5 MG/2 ML NEBU INHALATION SCH ×2 (07:33→22:04)
[2019-09-05] MEDS: TOPIRAMATE 100 MG TAB PO SCH ×2 (08:41→20:23)
[2019-09-05] MEDS: methylPREDNISolone SOD SUCCI 40 MG/ML 1 ML VIAL IV SCH ×2 (08:41→16:00)
[2019-09-05] MEDS: ATORVASTATIN 10 MG TAB PO SCH (08:41)
[2019-09-05] MEDS: TOPIRAMATE 25 MG TAB PO SCH (08:41)
[2019-09-05] MEDS: ENOXAPARIN 40 MG/0.4 ML SYRINGE SQ SCH (08:41)
[2019-09-05] MEDS: SULFAMETHOX-TMP 800-160MG 1 EACH TAB PO SCH (08:41)
[2019-09-05] MEDS: MUPIROCIN 2% OINT 22 GM TUBE TOPICAL SCH ×3 (08:42→20:24)
[2019-09-05] MEDS: TRIAMCINOLONE ACET 0.1% OINTMENT 15 GM TUBE TOPICAL SCH ×2 (08:42→20:24)
[2019-09-05] MEDS: BUPRENORPHINE HCL 150 MCG SUBLINGUAL SCH ×2 (10:46→22:26)
[2019-09-05 10:53] VITALS: BMI 21.4
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
--- NOTE | 2019-09-05 18:39 | P.PN ---
Progress Note - Text Progress Note Date: 09/05/19 Chief Complaint: Short of breath History of presenting complaint: This is a 64-year-old patient who follows a Dr. Maikel Johnson. Chronic stable medical conditions include hypothyroid thyroidism, GERD, hyperlipidemia, bilateral hemidiaphragmatic paralysis, hiatal hernia, agammaglobebemia, chronic hypoxic respiratory failure on home oxygen 5 L, chronic low back pain. Patient presents with the ER feeling more short of breath over the last few days. She'll be also having syncopal episodes. At least twice yesterday. She also fell on the lumbar spine and had some low back pain. Minimal cough no fever no chills the short of breath. Appetite is gone on a bit. Patient has chronic pain. Does use a cane. Has been more shaky. Today-laying in bed. It is small breakfast. Breathing is better. Did work with therapy. Walked a few steps. Review of systems: Was done for constitutional, cardiovascular, GI, pulmonary. relevant finding as above Active Medications Albuterol Sulfate (Ventolin Nebulized) 2.5 mg INHALATION RT-Q4H PRN PRN Reason: Shortness Of Breath Albuterol/Ipratropium (Duoneb 0.5 Mg-3 Mg/3 Ml Soln) 3 ml INHALATION RT-Q4H [facility] Last Admin: 09/05/19 15:21 Dose: 3 ml Documented by: Atorvastatin Calcium (Lipitor) 10 mg PO DAILY [facility] Last Admin: 09/05/19 08:41 Dose: 10 mg Documented by: Benzonatate (Tessalon Perles) 100 mg PO TID PRN PRN Reason: Cough Last Admin: 09/03/19 23:03 Dose: 100 mg Documented by: Budesonide (Pulmicort) 0.5 mg INHALATION RT-BID [facility] Last Admin: 09/05/19 07:33 Dose: 0.5 mg Documented by: Duloxetine HCl (Cymbalta) 30 mg PO HS [facility] Last Admin: 09/04/19 21:53 Dose: 30 mg Documented by: Enoxaparin Sodium (Lovenox) 40 mg SQ DAILY [facility] Last Admin: 09/05/19 08:41 Dose: 40 mg Documented by: Formoterol Fumarate (Perforomist) 20 mcg INHALATION RT-BID [facility] Last Admin: 09/05/19 07:33 Dose: 20 mcg Documented by: Lactated Ringer's (Lactated Ringers) 1,000 mls @ 125 mls/hr IV .Q8H [facility] Last Admin: 09/05/19 16:01 Dose: 125 mls/hr Documented by: Levothyroxine Sodium (Synthroid) 300 mcg PO DAILY@0630 [facility] Last Admin: 09/05/19 06:29 Dose: 300 mcg Documented by: Methylprednisolone Sodium Succinate (Solu-Medrol) 40 mg IV Q8HR [facility] Last Admin: 09/05/19 16:00 Dose: 40 mg Documented by: Mirtazapine (Remeron) 15 mg PO [facility] Last Admin: 09/04/19 21:52 Dose: 15 mg Documented by: Montelukast Sodium (Singulair) 10 mg PO [facility] Last Admin: 09/04/19 21:52 Dose: 10 mg Documented by: Mupirocin (Bactroban Oint) 1 applic TOPICAL TID [facility] Last Admin: 09/05/19 16:03 Dose: Not Given Documented by: Naloxone HCl (Narcan) 0.2 mg IV Q2M PRN PRN Reason: Opioid Reversal Non-Formulary Medication (Buprenorphine Hcl [Belbuca]) 150 mcg SUBLINGUAL Q12H [facility] Last Admin: 09/05/19 10:46 Dose: 150 mcg Documented by: Ropinirole HCl (Requip) 2 mg PO [facility] Last Admin: 09/04/19 21:52 Dose: 2 mg Documented by: Topiramate (Topamax) 100 mg PO BID [facility] Last Admin: 09/05/19 08:41 Dose: 100 mg Documented by: Topiramate (Topamax) 25 mg PO DAILY [facility] Last Admin: 09/05/19 08:41 Dose: 25 mg Documented by: Tramadol HCl (Ultram) 50 mg PO TID PRN PRN Reason: Pain Last Admin: 09/04/19 21:52 Dose: 50 mg Documented by: Triamcinolone Acetonide (Kenalog) 1 applic TOPICAL BID [facility] Last Admin: 09/05/19 08:42 Dose: Not Given Documented by: Trimethoprim/Sulfamethoxazole (Bactrim Ds) 1 each PO MoWeFr@0900 [facility] Last Admin: 09/05/19 08:41 Dose: 1 each Documented by: Physical examination: VITAL SIGNS: 98.1-6 a 62-16-138/82-94% on 5 L GENERAL: Laying in bed, awake EYES: Pupils equal. Conjunctiva normal. HEENT: External appearance of nose and ears normal, oral cavity grossly normal. NECK: JVD not raised; masses not palpable. HEART: First and second heart sounds are normal; no edema. LUNGS: Respiratory rate increased, diminished breath sounds. ABDOMEN: Soft, nontender, liver spleen not palpable, no masses palpable. PSYCH: Able to answer simple questions. NEUROLOGICAL: some tremor symptoms of the head and the arm. MUSCULOSKELETAL: Wasting of some muscles loss of subcutaneous fat INVESTIGATIONS, reviewed in the clinical context: White count 6.7 hemoglobin 11.7 platelets 205 potassium 4.0 bun 25 creatinine 1.19 ProBNP 36 EKG tracing personally reviewed by me shows possible normal sinus rhythm Chest x-ray film personally reviewed by me-bilateral diaphragmatic elevated, possible atelectasis Lumbar spine x-ray, CT of the head both negative for any acute fracture Assessment: -Acute exacerbation of moderate persistent asthma -Recurrent syncope appears to be multifactorial including muscle weakness, dehydration -Acute renal failure, likely prerenal from decreased oral intake -Hypothyroidism. -GERD -Hyperlipidemia -Chronic bilateral hemidiaphragmatic paralysis -Hiatal hernia -Chronic hypoxic respiratory failure on home oxygen 5 L -Chronic low back pain -Chronic body and arm tremor-possibly essential tremor. Plan: We'll try the patient on small dose of primidone. Might help with ambulation. Nurse informed me inform me that per the daughter-Patient may be taking extra pain medication than prescribed. Doing better with physical therapy.
[2019-09-05] MEDS: MONTELUKAST 10 MG TAB PO SCH (20:23)
[2019-09-05] MEDS: DULoxetine HCL 30 MG CAPSULE.DR PO SCH (20:23)
[2019-09-05] MEDS: MIRTAZAPINE 15 MG TAB PO SCH (20:23)
[2019-09-05] MEDS: PRIMIDONE 25 MG TAB PO SCH (22:24)
[2019-09-06] MEDS: IPRATROPIUM-ALBUTEROL 3 ML NEB INHALATION SCH ×6 (01:09→19:12)
[2019-09-06] MEDS: LEVOTHYROXINE 100 MCG TAB PO SCH (06:23)
[2019-09-06] MEDS: BUDESONIDE 0.5 MG/2 ML NEBU INHALATION SCH ×2 (06:58→19:12)
[2019-09-06] MEDS: FORMOTEROL FUMARATE 20 MCG/2 ML NEBU INHALATION SCH ×2 (06:58→19:25)
[2019-09-06] MEDS: TOPIRAMATE 25 MG TAB PO SCH (07:10)
[2019-09-06] MEDS: TOPIRAMATE 100 MG TAB PO SCH ×2 (07:10→22:01)
[2019-09-06] MEDS: predniSONE 10 MG TAB PO SCH (07:10)
[2019-09-06] MEDS: ATORVASTATIN 10 MG TAB PO SCH (07:10)
[2019-09-06] MEDS: SULFAMETHOX-TMP 800-160MG 1 EACH TAB PO SCH (07:10)
[2019-09-06] MEDS: ENOXAPARIN 40 MG/0.4 ML SYRINGE SQ SCH (07:11)
[2019-09-06] MEDS: MUPIROCIN 2% OINT 22 GM TUBE TOPICAL SCH ×3 (07:13→20:00)
[2019-09-06] MEDS: PRIMIDONE 25 MG TAB PO SCH ×3 (07:14→22:02)
[2019-09-06] MEDS: TRIAMCINOLONE ACET 0.1% OINTMENT 15 GM TUBE TOPICAL SCH ×2 (08:11→20:01)
[2019-09-06] MEDS: BUPRENORPHINE HCL 150 MCG SUBLINGUAL SCH ×2 (09:55→22:01)
[2019-09-06 10:47] LABS: Potassium 3.5 mmol/L (3.5-5.1)
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
[2019-09-06] MEDS: LACTATED RINGERS 1,000 ML IV SCH (15:31)
--- NOTE | 2019-09-06 19:07 | P.PN ---
Progress Note - Text Progress Note Date: 09/06/19 Chief Complaint: Short of breath History of presenting complaint: This is a 64-year-old patient who follows a Dr. Maikel Johnson. Chronic stable medical conditions include hypothyroid thyroidism, GERD, hyperlipidemia, bilateral hemidiaphragmatic paralysis, hiatal hernia, agammaglobebemia, chronic hypoxic respiratory failure on home oxygen 5 L, chronic low back pain. Patient presents with the ER feeling more short of breath over the last few days. She'll be also having syncopal episodes. At least twice yesterday. She also fell on the lumbar spine and had some low back pain. Minimal cough no fever no chills the short of breath. Appetite is gone on a bit. Patient has chronic pain. Does use a cane. Has been more shaky. Started on primidone yesterday. Today-shaking episodes/tremors are much better with the primidone on board. For more awake. PTOT pending to see this morning. Breakfast about 25%, no lunch. Patient used a cane to walk 100 feet. Did rather well. Review of systems: Was done for constitutional, cardiovascular, GI, pulmonary. relevant finding as above Active Medications Albuterol Sulfate (Ventolin Nebulized) 2.5 mg INHALATION RT-Q4H PRN PRN Reason: Shortness Of Breath Albuterol/Ipratropium (Duoneb 0.5 Mg-3 Mg/3 Ml Soln) 3 ml INHALATION RT-Q4H [facility] Last Admin: 09/06/19 15:15 Dose: 3 ml Documented by: Atorvastatin Calcium (Lipitor) 10 mg PO DAILY [facility] Last Admin: 09/06/19 07:10 Dose: 10 mg Documented by: Benzonatate (Tessalon Perles) 100 mg PO TID PRN PRN Reason: Cough Last Admin: 09/03/19 23:03 Dose: 100 mg Documented by: Budesonide (Pulmicort) 0.5 mg INHALATION RT-BID [facility] Last Admin: 09/06/19 06:58 Dose: 0.5 mg Documented by: Duloxetine HCl (Cymbalta) 30 mg PO HS [facility] Last Admin: 09/05/19 20:23 Dose: 30 mg Documented by: Enoxaparin Sodium (Lovenox) 40 mg SQ DAILY [facility] Last Admin: 09/06/19 07:11 Dose: 40 mg Documented by: Formoterol Fumarate (Perforomist) 20 mcg INHALATION RT-BID [facility] Last Admin: 09/06/19 06:58 Dose: 20 mcg Documented by: Lactated Ringer's (Lactated Ringers) 1,000 mls @ 50 mls/hr IV .Q20H [facility] Last Admin: 09/06/19 15:31 Dose: Not Given Documented by: Levothyroxine Sodium (Synthroid) 300 mcg PO DAILY@0630 [facility] Last Admin: 09/06/19 06:23 Dose: 300 mcg Documented by: Mirtazapine (Remeron) 15 mg PO [facility] Last Admin: 09/05/19 20:23 Dose: 15 mg Documented by: Montelukast Sodium (Singulair) 10 mg PO [facility] Last Admin: 09/05/19 20:23 Dose: 10 mg Documented by: Mupirocin (Bactroban Oint) 1 applic TOPICAL TID [facility] Last Admin: 09/06/19 15:32 Dose: Not Given Documented by: Naloxone HCl (Narcan) 0.2 mg IV Q2M PRN PRN Reason: Opioid Reversal Non-Formulary Medication (Buprenorphine Hcl [Belbuca]) 150 mcg SUBLINGUAL Q12H [facility] Last Admin: 09/06/19 09:55 Dose: 150 mcg Documented by: Prednisone () 30 mg PO DAILY [facility] Last Admin: 09/06/19 07:10 Dose: 30 mg Documented by: Primidone (Mysoline) 12.5 mg PO TID [facility] Last Admin: 09/06/19 16:43 Dose: 12.5 mg Documented by: Ropinirole HCl (Requip) 2 mg PO [facility] Last Admin: 09/05/19 20:32 Dose: 2 mg Documented by: Topiramate (Topamax) 100 mg PO BID [facility] Last Admin: 09/06/19 07:10 Dose: 100 mg Documented by: Topiramate (Topamax) 25 mg PO DAILY [facility] Last Admin: 09/06/19 07:10 Dose: 25 mg Documented by: Tramadol HCl (Ultram) 50 mg PO TID PRN PRN Reason: Pain Last Admin: 09/04/19 21:52 Dose: 50 mg Documented by: Triamcinolone Acetonide (Kenalog) 1 applic TOPICAL BID [facility] Last Admin: 09/06/19 08:11 Dose: Not Given Documented by: Trimethoprim/Sulfamethoxazole (Bactrim Ds) 1 each PO MoWeFr@0900 [facility] Last Admin: 09/06/19 07:10 Dose: 1 each Documented by: Physical examination: VITAL SIGNS: 97.8, 69, 16, 129/79, 97% on 5 L GENERAL: Laying in bed, more awake EYES: Pupils equal. Conjunctiva normal. HEENT: External appearance of nose and ears normal, oral cavity grossly normal. NECK: JVD not raised; masses not palpable. HEART: First and second heart sounds are normal; no edema. LUNGS: Respiratory rate increased, diminished breath sounds. ABDOMEN: Soft, nontender, liver spleen not palpable, no masses palpable. PSYCH: Answering questions appropriately NEUROLOGICAL: Tremor is much improved. MUSCULOSKELETAL: Wasting of some muscles loss of subcutaneous fat INVESTIGATIONS, reviewed in the clinical context: Potassium 3.5 creatinine 0.82 Previous testing White count 6.7 hemoglobin 11.7 platelets 205 potassium 4.0 bun 25 creatinine 1.19 ProBNP 36 EKG tracing personally reviewed by me shows possible normal sinus rhythm Chest x-ray film personally reviewed by me-bilateral diaphragmatic elevated, possible atelectasis Lumbar spine x-ray, CT of the head both negative for any acute fracture Assessment: -Acute exacerbation of moderate persistent asthma, improving -Recurrent syncope appears to be multifactorial including muscle weakness, dehydration -Acute renal failure, likely prerenal from decreased oral intake, improving -Hypothyroidism. -GERD -Hyperlipidemia -Chronic bilateral hemidiaphragmatic paralysis -Hiatal hernia -Chronic hypoxic respiratory failure on home oxygen 5 L -Chronic low back pain -Chronic body and arm tremor-possibly essential tremor.-Improving with primidone Plan: Later in the day patient did walk with therapy. Improving. We'll watch another 24 hours. Oral looking better. Encouraging oral intake to be increased. Possible discharge home tomorrow. Discussed with the patient.
[2019-09-06 20:49] VITALS: RESP 18
[2019-09-06] MEDS: MIRTAZAPINE 15 MG TAB PO SCH (22:01)
[2019-09-06] MEDS: DULoxetine HCL 30 MG CAPSULE.DR PO SCH (22:01)
[2019-09-06] MEDS: MONTELUKAST 10 MG TAB PO SCH (22:02)
[2019-09-07] MEDS: IPRATROPIUM-ALBUTEROL 3 ML NEB INHALATION SCH ×4 (00:42→11:29)
[2019-09-07 05:55] VITALS: BP 104/66; TEMP 97.2
[2019-09-07] MEDS: LEVOTHYROXINE 100 MCG TAB PO SCH (06:23)
[2019-09-07] MEDS: FORMOTEROL FUMARATE 20 MCG/2 ML NEBU INHALATION SCH (07:56)
[2019-09-07] MEDS: BUDESONIDE 0.5 MG/2 ML NEBU INHALATION SCH (07:56)
[2019-09-07] MEDS: PRIMIDONE 25 MG TAB PO SCH (08:28)
[2019-09-07] MEDS: predniSONE 10 MG TAB PO SCH (08:28)
[2019-09-07] MEDS: ATORVASTATIN 10 MG TAB PO SCH (08:29)
[2019-09-07] MEDS: TOPIRAMATE 25 MG TAB PO SCH (08:30)
[2019-09-07] MEDS: MUPIROCIN 2% OINT 22 GM TUBE TOPICAL SCH (08:31)
[2019-09-07] MEDS: TOPIRAMATE 100 MG TAB PO SCH (08:31)
[2019-09-07] MEDS: ENOXAPARIN 40 MG/0.4 ML SYRINGE SQ SCH (08:31)
[2019-09-07] MEDS: TRIAMCINOLONE ACET 0.1% OINTMENT 15 GM TUBE TOPICAL SCH (08:32)
[2019-09-07] MEDS: BUPRENORPHINE HCL 150 MCG SUBLINGUAL SCH (08:59)
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
[2019-09-07] MEDS: LACTATED RINGERS 1,000 ML IV SCH (11:29)
[2019-09-07 11:57] VITALS: PULSE 72
[2019-09-07] MEDS ORDERED: PRIMIDONE 25 MG TAB PO SCH (16:00)
--- NOTE | 2019-09-07 16:00 | PN ---
PROGRESS NOTE PULMONARY/CRITICAL CARE PROGRESS NOTE: DATE OF SERVICE: 09/07/2019 This is a 64-year-old patient well known to me. Her primary-care physician is Dr. Maikel Johnson. I see her for her chronic respiratory insufficiency. She has profound diaphragmatic myopathy of unclear etiology. The patient was admitted with a diagnosis of syncope and frequent falls. A CT scan of the brain was negative. Cervical and lumbar x-rays showed no evidence of acute fracture. The patient has a history of chronic respiratory insufficiency with chronic hypoxemia. She is on oxygen 16/02. She has a diffuse diaphragmatic myopathy of unclear etiology. The patient has been seen at various centers, such as the [facility] and [facility] without a precise diagnosis. At one point, the patient was on a Trilogy Ventilator using average volume of short pressure support, but she could not tolerate it. In addition, she has a history of chronic restrictive lung disease, chronic adrenal insufficiency, hiatal hernia, basal cell carcinoma of the skin, osteoporosis, endocarditis, chronic steroid dependence, and hypogammaglobulinemia, probably consistent with common variable immunodeficiency. Anyway, the patient is doing better. She did have a breathing treatment this morning; her breathing is much improved. According to the respiratory therapist, she was wheezing earlier this morning. She denies any fever, chills, chest pain, or chest discomfort. Her breathing is never normal. PHYSICAL EXAMINATION: Current vital signs are reviewed. Temperature 97.2, heart rate 75, respiratory rate 18, blood pressure 104/66 mean 78. Room air saturations are 94%. She appears in no acute distress. HEENT: Examination is grossly unremarkable. Nasal O2 noted. NECK: Supple. Full range of motion. No adenopathy or thyromegaly. Neck veins are flat. CARDIOVASCULAR: Regular rhythm and rate. Heart rate is in the 70s. Heart sounds are distant. LUNGS: Reveal equal breath sounds bilaterally. Breath sounds are very severely diminished. She is not able to take deep breaths. I do not hear any distinct wheezes currently. There are a few scattered rhonchi. No crackles. ABDOMEN: Soft; bowel sounds are heard. EXTREMITIES: Intact. No edema. SKIN: Without rash. NEUROLOGIC: Examination is brief but nonfocal. LABS: Lab data is reviewed. Most recent chemistry profile shows a sodium of 136, potassium 3.5, chloride 103, CO2 24, anion gap of 9, BUN and creatinine were 15 and 0.82. Her CBC was essentially normal. Microbiology was negative. IMAGING: A chest x-ray from September 03 shows evidence of significant baseline atelectasis, elevated diaphragms, and small lung volumes. The rest of the labs and x-rays are reviewed. MEDICATIONS: Medications are reviewed. ASSESSMENT: 1. Syncope with frequent falls, of unclear etiology. CT scan of the brain was negative, and x-rays of the cervical and lumbar spine were negative. 2. A severe hypoxemic respiratory failure secondary to severe unexplained diaphragmatic myopathy. 3. Chronic restrictive lung disease secondary to the above. 4. History of chronic adrenal insufficiency. 5. Combined variable immunodeficiency (CVID). 6. History of hiatal hernia with gastroesophageal reflux disease. 7. Basal cell carcinoma of the skin. 8. Osteoporosis. 9. History of endocarditis. 10.Chronic steroid dependence. PLAN: The patient is doing a bit better. She will continue to be followed by our service. I want to see her in followup in my office once she is discharged. The patient continues to have worsening lung function. She has severe restrictive lung disease. She has an unknown disease process that is characterized by a progressive diaphragmatic myopathy. Again, she has been seen at various institutions, including [facility] and I believe [facility]. No additional recommendations are made. The prognosis is guarded. MMODL / IJN: [id number] /
--- NOTE | 2019-09-08 16:32 | P.DS ---
Providers Date of admission: 09/03/19 19:51 Expected date of discharge: 09/07/19 Attending physician: Prashant Castro Consults: 09/03/19 19:50 Consult Physician Urgent Consulting Provider: Sumeet Steven Consult Reason/Comments: acute/chronic resp failure Do you want consulting provider notified?: Yes 09/03/19 21:41 Consult Physician Urgent Consulting Provider: Onelia Negrete Consult Reason/Comments: acute syncope with fall, low back pain Do you want consulting provider notified?: Yes, Notify in am 09/06/19 11:24 Consult Physician Routine Consulting Provider: Maikel Valdivia Consult Reason/Comments: family believes pt is exaggerating symptoms and mismanaging narcotics Do you want consulting provider notified?: Yes [facility] Chief Complaint: Short of breath History of presenting complaint: This is a 64-year-old patient who follows a Dr. Maikel Johnson. Chronic stable medical conditions include hypothyroid thyroidism, GERD, hyperlipidemia, bilateral hemidiaphragmatic paralysis, hiatal hernia, agammaglobebemia, chronic hypoxic respiratory failure on home oxygen 5 L, chronic low back pain. Patient presents with the ER feeling more short of breath over the last few days. She'll be also having syncopal episodes. At least twice yesterday. She also fell on the lumbar spine and had some low back pain. Minimal cough no fever no chills the short of breath. Appetite is gone on a bit. Patient has chronic pain. Does use a cane. Has been more shaky. Admitted with-acute asthma exacerbation, dehydration leading to more falls, acute renal failure-improved, uncontrolled tremor which is long-standing. Treated with bronchodilators. IV fluids. Primidone was added. Tremors much better controlled. Patient up and about in the hallway walking much better. There was a concern by her daughter about she taking her pain medications more than normal. This was addressed with the patient. She denies the same.. Doing much better with time of discharge. Awake and alert. Answering questions appropriately. Seen by psychiatry-nothing further to add. Consultation: Dr. Valdivia from psychiatry Dr. Steven from pulmonary Physical examination: VITAL SIGNS: 97.2, 69, 18, and a 4/66, 94% on 5 L L GENERAL: Sitting up, awake EYES: Pupils equal. Conjunctiva normal. HEENT: External appearance of nose and ears normal, oral cavity grossly normal. NECK: JVD not raised; masses not palpable. HEART: First and second heart sounds are normal; no edema. LUNGS: Respiratory rate increased, diminished breath sounds. ABDOMEN: Soft, nontender, liver spleen not palpable, no masses palpable. PSYCH: Toward 3, mood and affect normal NEUROLOGICAL: Tremor is much improved. MUSCULOSKELETAL: Wasting of some muscles loss of subcutaneous fat INVESTIGATIONS, reviewed in the clinical context: Potassium 3.5 creatinine 0.82 Previous testing White count 6.7 hemoglobin 11.7 platelets 205 potassium 4.0 bun 25 creatinine 1.19 ProBNP 36 EKG tracing personally reviewed by me shows possible normal sinus rhythm Chest x-ray film personally reviewed by me-bilateral diaphragmatic elevated, possible atelectasis Lumbar spine x-ray, CT of the head both negative for any acute fracture Assessment: -Acute exacerbation of moderate persistent asthma, POA -Recurrent syncope appears to be multifactorial including muscle weakness, dehydration -Acute renal failure, likely prerenal from decreased oral intake, POA -Hypothyroidism. -GERD -Hyperlipidemia -Chronic bilateral hemidiaphragmatic paralysis -Hiatal hernia -Chronic hypoxic respiratory failure on home oxygen 5 L -Chronic low back pain -Chronic uncontrolled essential tremor.-Improving with primidone Disposition: Home Patient Condition at Discharge: Stable Plan - Discharge Summary Discharge Rx Participant: No New Discharge Prescriptions: New Famotidine [Pepcid] 20 mg PO BID #60 tablet Primidone [Mysoline] 25 mg PO TID #60 tablet Continue rOPINIRole HCL [Requip] 2 mg PO HS Lovastatin [Mevacor] 20 mg PO DAILY predniSONE [Prednisone] 5 mg PO DAILY Montelukast [Singulair] 10 mg PO HS Buprenorphine HCl [Belbuca] 150 mcg BUCCAL Q12H DULoxetine HCL [Cymbalta] 30 mg PO HS Levothyroxine Sodium [Synthroid] 300 mcg PO DAILY Topiramate [Topamax] 100 mg PO BID [facility] 2 mg SQ Q14D Sulfamethox-Tmp 800-160Mg [Bactrim DS 800-160 mg] 1 tab PO MOWEFR #0 Triamcinolone Acetonide [Triamcinolone Acetonide 0.025%] 1 applic TOPICAL BID Mupirocin 2% Oint [Bactroban 2% Oint] 1 applic TOPICAL TID Formoterol Fumarate [Perforomist] 20 mcg INHALATION RT-BID Alendronate Sodium [Fosamax] 70 mg PO Q7D Budesonide [Pulmicort] 0.5 mg INHALATION RT-BID Diclofenac Sodium [Voltaren] 75 mg PO BID Albuterol Nebulized [Ventolin Nebulized] 2.5 mg INHALATION RT-Q4H PRN PRN Reason: Shortness Of Breath Changed Mirtazapine 15 mg PO HS #0 Discontinued Benzonatate [Tessalon Perles] 100 mg PO TID PRN PRN Reason: Cough Topiramate [Topamax] 25 mg PO BID Discharge Medication List Lovastatin [Mevacor] 20 mg PO DAILY 02/14/14 [History] rOPINIRole HCL [Requip] 2 mg PO HS 02/14/14 [History] predniSONE [Prednisone] 5 mg PO DAILY 11/05/15 [History] Montelukast [Singulair] 10 mg PO HS 01/21/17 [History] Buprenorphine HCl [Belbuca] 150 mcg BUCCAL Q12H 02/23/19 [History] DULoxetine HCL [Cymbalta] 30 mg PO HS 02/23/19 [History] Levothyroxine Sodium [Synthroid] 300 mcg PO DAILY 02/23/19 [History] Topiramate [Topamax] 100 mg PO BID 02/23/19 [History] [facility] 2 mg SQ Q14D 08/05/19 [History] Sulfamethox-Tmp 800-160Mg [Bactrim DS 800-160 mg] 1 tab PO MOWEFR #0 08/12/19 [Rx] Albuterol Nebulized [Ventolin Nebulized] 2.5 mg INHALATION RT-Q4H PRN 09/03/19 [History] Alendronate Sodium [Fosamax] 70 mg PO Q7D 09/03/19 [History] Budesonide [Pulmicort] 0.5 mg INHALATION RT-BID 09/03/19 [History] Diclofenac Sodium [Voltaren] 75 mg PO BID 09/03/19 [History] Formoterol Fumarate [Perforomist] 20 mcg INHALATION RT-BID 09/03/19 [History] Mupirocin 2% Oint [Bactroban 2% Oint] 1 applic TOPICAL TID 09/03/19 [History] Triamcinolone Acetonide [Triamcinolone Acetonide 0.025%] 1 applic TOPICAL BID 09/03/19 [History] Famotidine [Pepcid] 20 mg PO BID #60 tablet 09/07/19 [Rx] Mirtazapine 15 mg PO HS #0 09/07/19 [Rx] Primidone [Mysoline] 25 mg PO TID #60 tablet 09/07/19 [Rx] Follow up Appointment(s)/Referral(s): Maikel Johnson MD [Primary Care Provider] - 09/12/19 10:00 am Sumeet Steven DO [Doctor of Osteopathic Medicine] - 09/22/19 1:45 pm Patient Instructions/Handouts: COPD (Chronic Obstructive Pulmonary Disease) (DC) Discharge Disposition: HOME SELF-CARE
== END 2019-09-07 13:48 | disposition home or self-care (01) | DRG 202 ==
LOC: EC 16:52 → 6NMEDSUR 19:51 → OBSVTOIN 19:51 → 6NMEDSUR 21:06
PROVIDERS: ADMIT Hospitalist; ATTEND Hospitalist
DX: J45.41 Moderate persistent asthma with (acute) exacerbation (principal); J96.11 Chronic respiratory failure with hypoxia; D83.9 Common variable immunodeficiency, unspecified; E27.40 Unspecified adrenocortical insufficiency; J44.1 Chronic obstructive pulmonary disease with (acute) exacerbation; J98.11 Atelectasis; N17.9 Acute kidney failure, unspecified; Z99.81 Dependence on supplemental oxygen; E03.9 Hypothyroidism, unspecified; E78.5 Hyperlipidemia, unspecified; E86.0 Dehydration; G25.0 Essential tremor; J98.6 Disorders of diaphragm; Z85.828 Personal history of other malignant neoplasm of skin; G89.29 Other chronic pain; K21.9 Gastro-esophageal reflux disease without esophagitis; K44.9 Diaphragmatic hernia without obstruction or gangrene; M81.0 Age-related osteoporosis without current pathological fracture; R29.6 Repeated falls; S09.90XA Unspecified injury of head, initial encounter; W19.XXXA Unspecified fall, initial encounter; R55 Syncope and collapse; Z79.2 Long term (current) use of antibiotics; Z79.52 Long term (current) use of systemic steroids; Z79.83 Long term (current) use of bisphosphonates; Z79.890 Hormone replacement therapy; Z79.899 Other long term (current) drug therapy; Z86.79 Personal history of other diseases of the circulatory system; Z90.710 Acquired absence of both cervix and uterus; Z91.81 History of falling; Z96.652 Presence of left artificial knee joint; Z87.01 Personal history of pneumonia (recurrent); M54.5 Low back pain; Z98.1 Arthrodesis status; Z88.8 Allergy status to other drugs, medicaments and biological substances; Z88.6 Allergy status to analgesic agent; Z88.1 Allergy status to other antibiotic agents; Z91.030 Bee allergy status; Z91.041 Radiographic dye allergy status; Z88.0 Allergy status to penicillin; Z91.013 Allergy to seafood
CPT/HCPCS: 36415; 70450; 71046; 72125; 72131; 80048; 80053; 83605; 83735; 83880; 84484; 85025; 85610; 85730; 93005; 94640; 94760; 96365; 96375; 99285

== ENCOUNTER 2019-10-20 13:33 | Inpatient (IN) | payer BC, MEDICARE ==
[2019-10-20] MEDS ORDERED: SODIUM CHLORIDE 0.9% 500 ML 500 ML IV STA (13:55)
--- NOTE | 2019-10-20 14:00 | ED ---
General Adult HPI - General Chief complaint: Shortness of Breath Stated complaint: fever/cough/SOB Time Seen by Provider: 10/20/19 13:35 Source: patient, RN notes reviewed, old records reviewed Mode of arrival: wheelchair Limitations: no limitations - History of Present Illness Initial comments: This is a 64-year-old female who presents emergency Department with a past medical history significant for COPD. Patient comes in stating she's had reported history of shortness of breath cough and intermittent fever. Patient states the fever comes and goes but she does take Tylenol in between. Patient states the highest he gets is 101. Patient states she's had no significant travel and she was having only content that she knows of with COVID positive patient. Patient denies any chest pain or palpitations. Patient denies any abdominal pain. Patient denies any nausea vomiting diarrhea per patient denies a headache patient denies numbness weakness per patient denies lightheadedness or dizziness. Patient stated that she did not take any treatments and she had some explanation about having no enzymes so she didn't take her treatments I did not understand this and she could not explain. - Related Data Home Medications Medication Instructions Recorded Confirmed Lovastatin [Mevacor] 20 mg PO DAILY 02/14/14 09/03/19 rOPINIRole HCL [Requip] 2 mg PO HS 02/14/14 09/03/19 predniSONE [Prednisone] 5 mg PO DAILY 11/05/15 09/03/19 Montelukast [Singulair] 10 mg PO HS 01/21/17 09/03/19 Buprenorphine HCl [Belbuca] 150 mcg BUCCAL Q12H 02/23/19 09/03/19 DULoxetine HCL [Cymbalta] 30 mg PO HS 02/23/19 09/03/19 Levothyroxine Sodium [Synthroid] 300 mcg PO DAILY 02/23/19 09/03/19 Topiramate [Topamax] 100 mg PO BID 02/23/19 09/03/19 [facility] 2 mg SQ Q14D 08/05/19 09/05/19 Albuterol Nebulized [Ventolin 2.5 mg INHALATION RT-Q4H PRN 09/03/19 09/03/19 Nebulized] Alendronate Sodium [Fosamax] 70 mg PO Q7D 09/03/19 09/03/19 Budesonide [Pulmicort] 0.5 mg INHALATION RT-BID 09/03/19 09/03/19 Diclofenac Sodium [Voltaren] 75 mg PO BID 09/03/19 09/03/19 Formoterol Fumarate [Perforomist] 20 mcg INHALATION RT-BID 09/03/19 09/03/19 Mupirocin 2% Oint [Bactroban 2% 1 applic TOPICAL TID 09/03/19 09/03/19 Oint] Triamcinolone Acetonide 1 applic TOPICAL BID 09/03/19 09/03/19 [Triamcinolone Acetonide 0.025%] Previous Rx's Medication Instructions Recorded Sulfamethox-Tmp 800-160Mg [Bactrim 1 tab PO MOWEFR #0 08/12/19 DS 800-160 mg] Famotidine [Pepcid] 20 mg PO BID #60 tablet 09/07/19 Mirtazapine 15 mg PO HS #0 09/07/19 Primidone [Mysoline] 25 mg PO TID #60 tablet 09/07/19 Allergies Allergy/AdvReac Type Severity Reaction Status Date / Time aspirin Allergy Rash/Hives Verified 10/20/19 13:40 bee pollen Allergy Anaphylaxis Verified 10/20/19 13:40 cefdinir [From Omnicef] Allergy Anaphylaxis Verified 10/20/19 13:40 clarithromycin [From Biaxin] Allergy Anaphylaxis Verified 10/20/19 13:40 ibuprofen [From Advil] Allergy Anaphylaxis Verified 10/20/19 13:40 Iodinated Contrast Media Allergy SWELLING Verified 10/20/19 13:40 [Iodinated Contrast Media - OF THROAT IV Dye] iodine Allergy Anaphylaxis Verified 10/20/19 13:40 omalizumab [From Xolair] Allergy Anaphylaxis Verified 10/20/19 13:40 prochlorperazine edisylate Allergy Rash/Hives Verified 10/20/19 13:40 [From Compazine] prochlorperazine maleate Allergy Rash/Hives Verified 10/20/19 13:40 [From Compazine] shellfish derived Allergy Anaphylaxis Verified 10/20/19 13:40 Penicillins AdvReac Dyspnea Verified 10/20/19 13:40 Review of Systems ROS Statement: Those systems with pertinent positive or pertinent negative responses have been documented in the HPI. ROS Other: All systems not noted in ROS Statement are negative. Past Medical History Past Medical History: Asthma, Cancer, COPD, GERD/Reflux, Hyperlipidemia, Pneumonia, Sleep Apnea/CPAP/BIPAP, Thyroid Disorder Additional Past Medical History / Comment(s): Chronic bilateral hemidiaphragmat ic elevation/weakness/paralysis, adrenal insufficiency, hiatal hernia, basal cell carcinoma of the skin, uses cane , uses oxygen continous at 3L, irregular bowel movements, hx endocarditis,osteoporosis, hx fx spine agammaglobulinemia History of Any Multi-Drug Resistant Organisms: None Reported Past Surgical History: Adenoidectomy, Appendectomy, Back Surgery, Breast Surgery, Cholecystectomy, Hysterectomy, Joint Replacement, Tonsillectomy Additional Past Surgical History / Comment(s): left knee replacement, left knee arthroscopy, breast biopsy-rt, mino breast reduction, hemorrhoidectomy, back surgery fusion with additional surgery X1, Past Anesthesia/Blood Transfusion Reactions: Family History of Problems w/ Anesthesia, Motion Sickness Additional Past Anesthesia/Blood Transfusion Reaction / Comment(s): "brother was awake during whole surgery" Past Psychological History: No Psychological Hx Reported Smoking Status: Never smoker Past Alcohol Use History: None Reported Past Drug Use History: None Reported - Past Family History Mother Family Medical History: Cancer Father Family Medical History: Cancer General Exam - General Exam Comments Initial Comments: GENERAL: Patient is well-developed and well-nourished. Patient is nontoxic and well- hydrated and is in mild distress. ENT: Neck is soft and supple. No significant lymphadenopathy is noted. Oropharynx is clear. Moist mucous membranes. Neck has full range of motion without eliciting any pain. EYES: The sclera were anicteric and conjunctiva were pink and moist. Extraocular movements were intact and pupils were equal round and reactive to light. Eyelids were unremarkable. PULMONARY: Patient was not making very good effort so she had very poor breath sounds. Patient was at 96% on her oxygen. CARDIOVASCULAR: There is a regular rate and rhythm without any murmurs gallops or rubs. ABDOMEN: Soft and nontender with normal bowel sounds. SKIN: Skin is clear with no lesions or rashes and otherwise unremarkable. NEUROLOGIC: Patient is alert and oriented x3. Cranial nerves II through XII are grossly intact. Motor and sensory are also intact. Normal speech, volume and content. Symmetrical smile. MUSCULOSKELETAL: Normal extremities with adequate strength and full range of motion. LYMPHATICS: No significant lymphadenopathy is noted PSYCHIATRIC: Normal psychiatric evaluation. Limitations: no limitations Course Vital Signs 10/20/19 10/20/19 13:36 16:02 Temperature 99.2 F Pulse Rate 80 94 Respiratory 18 20 Rate Blood Pressure 159/85 O2 Sat by Pulse 96 Oximetry Medical Decision Making - Medical Decision Making EKG shows normal sinus rhythm at 73 bpm FL interval is 180 QRS is 94 QT interval 4:30 QTC is 473 per patient's EKG shows no ST segment elevation or depression. Chest x-ray shows no acute abnormality. Patient states she was no better after the breathing treatment. I gave the patient some steroids and will be admitting the patient for COPD exacerbation. I spoke with Dr. Castro agreed to admit the patient admitted the patient - Lab Data Result diagrams: 10/20/19 14:32 10/20/19 14:22 Lab Results 10/20/19 10/20/19 10/20/19 Range/Units 14:22 14:22 14:22 WBC (3.8-10.6) k/uL RBC (3.80-5.40) m/uL Hgb (11.4-16.0) gm/dL Hct (34.0-46.0) % MCV (80.0-100.0) fL MCH (25.0-35.0) pg MCHC (31.0-37.0) g/dL RDW (11.5-15.5) % Plt Count (150-450) k/uL Neutrophils % (Manual) % Band Neutrophils % % Lymphocytes % (Manual) % Monocytes % (Manual) % Eosinophils % (Manual) % Neutrophils # (Manual) (1.3-7.7) k/uL Lymphocytes # (Manual) (1.0-4.8) k/uL Monocytes # (Manual) (0-1.0) k/uL Eosinophils # (Manual) (0-0.7) k/uL Nucleated RBCs (0-0) /100 WBC Manual Slide Review RBC Morphology PT 9.9 (9.0-12.0) sec INR 0.9 (<1.2) APTT 23.6 (22.0-30.0) sec Sodium 138 (137-145) mmol/L Potassium 4.6 (3.5-5.1) mmol/L Chloride 99 (98-107) mmol/L Carbon Dioxide 33 H (22-30) mmol/L Anion Gap 6 mmol/L BUN 21 H (7-17) mg/dL Creatinine 1.20 H (0.52-1.04) mg/dL Est GFR (CKD-EPI)AfAm 55 (>60 ml/min/1.73 sqM) Est GFR (CKD-EPI)NonAf 48 (>60 ml/min/1.73 sqM) Glucose 80 (74-99) mg/dL Plasma Lactic Acid Carlos 0.8 (0.7-2.0) mmol/L Calcium 8.9 (8.4-10.2) mg/dL Magnesium 2.0 (1.6-2.3) mg/dL Total Bilirubin 0.3 (0.2-1.3) mg/dL AST 60 H (14-36) U/L ALT 40 H (4-34) U/L Alkaline Phosphatase 54 (38-126) U/L Troponin I (0.000-0.034) ng/mL NT-Pro-B Natriuret Pep pg/mL Total Protein 7.9 (6.3-8.2) g/dL Albumin 4.7 (3.5-5.0) g/dL Influenza Type A RNA (Not Detectd) Influenza Type B (PCR) (Not Detectd) 10/20/19 10/20/19 10/20/19 Range/Units 14:22 14:22 14:22 WBC (3.8-10.6) k/uL RBC (3.80-5.40) m/uL Hgb (11.4-16.0) gm/dL Hct (34.0-46.0) % MCV (80.0-100.0) fL MCH (25.0-35.0) pg MCHC (31.0-37.0) g/dL RDW (11.5-15.5) % Plt Count (150-450) k/uL Neutrophils % (Manual) % Band Neutrophils % % Lymphocytes % (Manual) % Monocytes % (Manual) % Eosinophils % (Manual) % Neutrophils # (Manual) (1.3-7.7) k/uL Lymphocytes # (Manual) (1.0-4.8) k/uL Monocytes # (Manual) (0-1.0) k/uL Eosinophils # (Manual) (0-0.7) k/uL Nucleated RBCs (0-0) /100 WBC Manual Slide Review RBC Morphology PT (9.0-12.0) sec INR (<1.2) APTT (22.0-30.0) sec Sodium (137-145) mmol/L Potassium (3.5-5.1) mmol/L Chloride (98-107) mmol/L Carbon Dioxide (22-30) mmol/L Anion Gap mmol/L BUN (7-17) mg/dL Creatinine (0.52-1.04) mg/dL Est GFR (CKD-EPI)AfAm (>60 ml/min/1.73 sqM) Est GFR (CKD-EPI)NonAf (>60 ml/min/1.73 sqM) Glucose (74-99) mg/dL Plasma Lactic Acid Carlos (0.7-2.0) mmol/L Calcium (8.4-10.2) mg/dL Magnesium (1.6-2.3) mg/dL Total Bilirubin (0.2-1.3) mg/dL AST (14-36) U/L ALT (4-34) U/L Alkaline Phosphatase (38-126) U/L Troponin I <0.012 (0.000-0.034) ng/mL NT-Pro-B Natriuret Pep 21 pg/mL Total Protein (6.3-8.2) g/dL Albumin (3.5-5.0) g/dL Influenza Type A RNA Not Detected (Not Detectd) Influenza Type B (PCR) Not Detected (Not Detectd) 10/20/19 Range/Units 14:32 WBC 7.6 (3.8-10.6) k/uL RBC 4.12 (3.80-5.40) m/uL Hgb 12.8 (11.4-16.0) gm/dL Hct 39.6 (34.0-46.0) % MCV 96.1 (80.0-100.0) fL MCH 31.1 (25.0-35.0) pg MCHC 32.3 (31.0-37.0) g/dL RDW 14.9 (11.5-15.5) % Plt Count 162 (150-450) k/uL Neutrophils % (Manual) 66 % Band Neutrophils % 1 % Lymphocytes % (Manual) 26 % Monocytes % (Manual) 5 % Eosinophils % (Manual) 2 % Neutrophils # (Manual) 5.00 (1.3-7.7) k/uL Lymphocytes # (Manual) 1.98 (1.0-4.8) k/uL Monocytes # (Manual) 0.38 (0-1.0) k/uL Eosinophils # (Manual) 0.15 (0-0.7) k/uL Nucleated RBCs 0 (0-0) /100 WBC Manual Slide Review Performed RBC Morphology Normal PT (9.0-12.0) sec INR (<1.2) APTT (22.0-30.0) sec Sodium (137-145) mmol/L Potassium (3.5-5.1) mmol/L Chloride (98-107) mmol/L Carbon Dioxide (22-30) mmol/L Anion Gap mmol/L BUN (7-17) mg/dL Creatinine (0.52-1.04) mg/dL Est GFR (CKD-EPI)AfAm (>60 ml/min/1.73 sqM) Est GFR (CKD-EPI)NonAf (>60 ml/min/1.73 sqM) Glucose (74-99) mg/dL Plasma Lactic Acid Carlos (0.7-2.0) mmol/L Calcium (8.4-10.2) mg/dL Magnesium (1.6-2.3) mg/dL Total Bilirubin (0.2-1.3) mg/dL AST (14-36) U/L ALT (4-34) U/L Alkaline Phosphatase (38-126) U/L Troponin I (0.000-0.034) ng/mL NT-Pro-B Natriuret Pep pg/mL Total Protein (6.3-8.2) g/dL Albumin (3.5-5.0) g/dL Influenza Type A RNA (Not Detectd) Influenza Type B (PCR) (Not Detectd) Disposition Clinical Impression: Acute exacerbation of chronic obstructive pulmonary disease Disposition: ADMITTED IP TO THIS [facility] Referrals: Maikel Johnson MD [Primary Care Provider] - 1-2 days Time of Disposition: 16:09
[2019-10-20] MEDS ORDERED: LEVOFLOXACIN 750MG-D5W PMX 750 MG in DEXTROSE/WATER 1 150ML.BAG IVPB STA (14:02)
[2019-10-20 14:47] LABS: HCT 39.6 % (34.0-46.0); HGB 12.8 gm/dL (11.4-16.0); MCH 31.1 pg (25.0-35.0); MCHC 32.3 g/dL (31.0-37.0); MCV 96.1 fL (80.0-100.0); Mean Platelet Volume 8.3; Platelet Count 162 k/uL (150-450); RBC 4.12 m/uL (3.80-5.40); RDW 14.9 % (11.5-15.5); WBC 7.6 k/uL (3.8-10.6)
[2019-10-20 14:51] LABS: Albumin 4.7 g/dL (3.5-5.0); Calcium 8.9 mg/dL (8.4-10.2); Potassium 4.6 mmol/L (3.5-5.1); Total Bilirubin 0.3 mg/dL (0.2-1.3); Total Protein 7.9 g/dL (6.3-8.2)
--- NOTE | 2019-10-20 14:55 | XR ---
EXAMINATION TYPE: XR chest 2V DATE OF EXAM: 10/20/2019 COMPARISON: Chest x-ray and CT lumbar spine September 03 2019. HISTORY: Cough and fever. TECHNIQUE: Frontal and lateral views of the chest are obtained. FINDINGS: There persistent low lung volumes and bibasilar opacities. Upper lungs remain clear withou t new suspicious focal airspace opacity, pleural effusion, or pneumothorax. The cardiac silhouette si ze remains stable and within normal limits with ectatic aorta. Cholecystectomy clips. Osseous structu res are demineralized. Stable right-sided volume loss with mediastinal shift. Vertebroplasty L1 level . IMPRESSION: Low lung volumes with patchy bibasilar atelectasis and/or scarring and right-sided volum e loss. No definitive new focal infiltrate. No obvious change from most recent prior chest x-ray.
[2019-10-20 14:58] LABS: Band Neutrophils % 1 %; Eosinophils # (M) 0.15 k/uL (0-0.7); Lymphocytes # (M) 1.98 k/uL (1.0-4.8); Monocytes # (M) 0.38 k/uL (0-1.0); Neutrophils % (M) 66 %; Nucleated Red Blood Cells 0 /100 WBC (0-0); Total Cells Counted 100
[2019-10-20] MEDS ORDERED: IPRATROPIUM-ALBUTEROL 3 ML NEB INHALATION STA (15:01)
[2019-10-20 15:11] LABS: INR 0.9 (<1.2); Partial Thromboplastin Time 23.6 sec (22.0-30.0); Prothrombin Time 9.9 sec (9.0-12.0)
[2019-10-20] MEDS ORDERED: methylPREDNISolone SOD SUCCI 125 MG/2 ML VIAL IV STA (16:08)
[2019-10-20] MEDS ORDERED: ALBUTEROL NEBULIZED 2.5 MG/3 ML INHALATION STA (16:11)
[2019-10-20] MEDS ORDERED: BACLOFEN 10 MG TAB PO PRN (18:29)
[2019-10-20] MEDS ORDERED: IPRATROPIUM-ALBUTEROL 3 ML NEB INHALATION SCH (19:00)
[2019-10-20] MEDS ORDERED: BUDESONIDE 1 MG/2 ML NEBU INHALATION SCH (20:00)
[2019-10-20] MEDS ORDERED: FORMOTEROL FUMARATE 20 MCG/2 ML NEBU INHALATION SCH (20:00)
[2019-10-20] MEDS: SALMETEROL 50 MCG INHALATION SCH (20:16)
[2019-10-20] MEDS: ALBUTEROL INHALER 60 PUFF/8 GM INHALER (MHU) INHALATION SCH (20:19)
[2019-10-20] MEDS: FLUTICASONE 220 MCG INHALER INHALATION SCH (20:19)
[2019-10-20] MEDS: LACTATED RINGERS 1,000 ML IV SCH (20:36)
[2019-10-20] MEDS: TOPIRAMATE 100 MG TAB PO SCH (20:37)
[2019-10-20] MEDS: ENOXAPARIN 40 MG/0.4 ML SYRINGE SQ SCH (20:37)
[2019-10-20] MEDS: FAMOTIDINE 20 MG TAB PO SCH (20:37)
[2019-10-20] MEDS: MONTELUKAST 10 MG TAB PO SCH (20:37)
[2019-10-20] MEDS: ETODOLAC 400 MG TAB PO SCH (20:40)
[2019-10-20] MEDS: DULoxetine HCL 30 MG CAPSULE.DR PO SCH (20:41)
[2019-10-20] MEDS: MIRTAZAPINE 15 MG TAB PO SCH (20:41)
[2019-10-20] MEDS: Buprenorphine Hcl [Belbuca] SUBLINGUAL SCH (20:43)
[2019-10-20] MEDS: TRIAMCINOLONE ACET 0.1% OINTMENT 15 GM TUBE TOPICAL SCH (20:54)
[2019-10-20 21:59] LABS: Glucose,Whole Blood 110 mg/dL (75-99)
[2019-10-20] MEDS: MUPIROCIN 2% OINT 22 GM TUBE TOPICAL SCH (22:02)
[2019-10-20] MEDS: traMADol 50 MG TAB PO SCH (22:08)
[2019-10-20] MEDS: PRIMIDONE 25 MG TAB PO SCH (22:09)
[2019-10-20] MEDS: methylPREDNISolone SOD SUCCI 125 MG/2 ML VIAL IV SCH (23:36)
[2019-10-21] MEDS: LACTATED RINGERS 1,000 ML IV SCH ×3 (04:09→23:16)
[2019-10-21] MEDS: LEVOTHYROXINE 100 MCG TAB PO SCH (05:34)
[2019-10-21] MEDS: methylPREDNISolone SOD SUCCI 125 MG/2 ML VIAL IV SCH ×3 (05:34→17:08)
[2019-10-21] MEDS: ALBUTEROL INHALER 60 PUFF/8 GM INHALER (MHU) INHALATION SCH ×4 (08:28→20:32)
[2019-10-21] MEDS: SALMETEROL 50 MCG INHALATION SCH ×2 (08:28→20:32)
[2019-10-21] MEDS: ENOXAPARIN 40 MG/0.4 ML SYRINGE SQ SCH (10:21)
[2019-10-21] MEDS: ATORVASTATIN 10 MG TAB PO SCH (10:22)
[2019-10-21] MEDS: traMADol 50 MG TAB PO SCH ×4 (10:22→22:01)
[2019-10-21] MEDS: MUPIROCIN 2% OINT 22 GM TUBE TOPICAL SCH ×3 (10:22→22:02)
[2019-10-21] MEDS: TOPIRAMATE 100 MG TAB PO SCH ×2 (10:23→20:26)
[2019-10-21] MEDS: ETODOLAC 400 MG TAB PO SCH ×2 (10:23→20:27)
[2019-10-21] MEDS: FAMOTIDINE 20 MG TAB PO SCH ×2 (10:23→20:27)
[2019-10-21] MEDS: PRIMIDONE 25 MG TAB PO SCH ×3 (10:24→22:02)
[2019-10-21] MEDS: TRIAMCINOLONE ACET 0.1% OINTMENT 15 GM TUBE TOPICAL SCH ×2 (10:25→22:02)
[2019-10-21] MEDS: Buprenorphine Hcl [Belbuca] SUBLINGUAL SCH ×2 (10:44→22:02)
[2019-10-21] MEDS: TIOTROPIUM 18 MCG/PUFF INHALER INHALATION SCH (11:55)
--- NOTE | 2019-10-21 12:34 | CONS ---
CONSULTATION PULMONARY/CRITICAL CARE CONSULTATION: DATE OF SERVICE: 10/21/2019 REASON FOR CONSULTATION: Shortness of breath, cough and fever. This is a 64-year-old female well known to my service. 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 The patient presents to the emergency room on October 19 at 13:33 complaining of shortness of breath, cough and fever. Apparently, the patient has been taking Tylenol for the fever. It has been intermittent in nature. She has gotten as high as 101 degrees. The patient does state that she has a congested wet cough but is not producing much or any phlegm. She is also short of breath, but she is chronically short of breath anyway. The patient has not had any recent travel and has not been exposed to anybody that had been tested positive for COVID-19 infection. Anyway, the patient denies any chest pain or chest discomfort. She denies any nausea, vomiting, diarrhea, or abdominal pain. She denies any genitourinary complaints. She denies any headache. The patient is well known to me. I have been taking care of her for many years. The diaphragmatic myopathy has been evaluated by both [facility] and [facility]. No particular diagnosis had been made. The patient was on the trilogy ventilator in the AVAPS mode, but she stopped using it because she could not tolerate it. Her primary is Dr. Johnson. 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 HOME MEDICATIONS: Reviewed. She is on Mevacor, Requip, prednisone, Singulair, Belbuca, Cymbalta, Synthroid, Topamax, Hizentra home infusions, albuterol updrafts, Fosamax, Pulmicort, Voltaren, Perforomist, Bactroban ointment, triamcinolone cream, Bactrim, Pepcid, Mirtazapine, and Mysoline. ALLERGIES: Too numerous to mention, but include among other things, ASPIRIN, BEE POLLEN, OMNICEF, BIAXIN, etc. MEDICAL HISTORY: Includes a COPD/asthma, GERD, hyperlipidemia, pneumonia, sleep apnea, chronic hypoxemic respiratory failure, and hypothyroidism. The patient also suffers from chronic diaphragmatic myopathy of unclear etiology. She also has a history of adrenal insufficiency, hiatal hernia, skin cancer, endocarditis, osteoporosis, as I mentioned above the common variable immunodeficiency syndrome. She does receive received infusions of immunoglobulin for that. SURGICAL HISTORY: Includes adenoidectomy, appendectomy, back surgery, breast surgery, cholecystectomy, hysterectomy, tonsillectomy, left knee replacement, left knee arthroscopy, hemorrhoidectomy, among other procedures. SOCIAL HISTORY: Negative for tobacco use. She denies alcohol use or illicit drug use. FAMILY HISTORY: Positive for mother and father both with cancer. REVIEW OF SYSTEMS: CONSTITUTIONAL: Fever. NEUROLOGIC: Negative. HEENT: Negative. CARDIOVASCULAR: Negative. PULMONARY: Shortness of breath, chest tightness, cough, minimal phlegm production, chest congestion. GI: Negative. : Negative. RHEUMATOLOGIC: Negative. IMMUNOLOGIC: Negative. ENDOCRINOLOGIC: Negative. DERMATOLOGIC: Negative. Current vital signs are reviewed, temperature is 98.8, heart rate 71, respiratory rate 17, blood pressure 130/81 mean 97, saturations are between 90% and 94% on 5 L. There is no acute distress. HEENT: Examination is grossly unremarkable. Mucous membranes are moist. No oral lesions. NECK: Supple, full range of motion. No adenopathy. Neck veins are flat. CARDIOVASCULAR: Examination reveals regular rhythm and rate. S1, S2 normal. Heart rate 71 beats per minute. Heart sounds are distant. LUNGS: Reveal diminished breath sounds throughout. She does not take deep breaths. There are a few scattered bilateral rhonchi. No wheezes or crackles. Her cough is wet and congested sounding. ABDOMEN: Soft, bowel sounds are heard. EXTREMITIES: Intact. No cyanosis, clubbing, or edema. SKIN: Without rash. NEUROLOGIC: Examination is brief but nonfocal. Chest x-ray shows small lung volumes. Diaphragms are elevated. There is some mild basilar atelectasis. LABS: Reviewed. White count 7.6, hemoglobin 12.8, hematocrit 39.6, platelet count 162,000. PT, INR, PTT are normal. Sodium, potassium, chloride normal. CO2 is 33, anion gap 6. BUN and creatinine were 21 and 1.20. Liver function tests are normal save for an elevated AST and ALT. Influenza studies are negative. Medications are reviewed, and from the pulmonary standpoint, she is on albuterol inhaler, Symbicort, Levaquin and Solu-Medrol. The patient is apparently also on Spiriva Handy haler. ASSESSMENT: 1. Chronic obstructive pulmonary disease exacerbation complicated by tracheobronchitis, without andrea pneumonia. 2. History of underlying chronic obstructive pulmonary disease. 3. Chronic restrictive lung disease secondary to diaphragmatic myopathy of unclear etiology. 4. Common variable immunodeficiency syndrome (CVID), currently on home infusions of immunoglobulin. 5. History of skin cancer. 6. History of gastroesophageal reflux disease. 7. History of hyperlipidemia. 8. Prior history of pneumonia. 9. History of sleep apnea syndrome. 10.Chronic hypoxemic respiratory failure. 11.Hypothyroidism. 12.History of hiatal hernia. 13.History of endocarditis. 14.History of osteoporosis. PLAN: The patient was provided a trilogy ventilator for average volume assured pressure support (AVAPS), which she initially used but has since stopped using. The patient was sent to [facility] and the [facility] for further evaluation of her dicrotic myopathy without a precise diagnosis. The patient is currently on home oxygen. Her medications are reviewed. Everything is appropriate. She is being tested for COVID-19 infection as she presented with shortness of breath, cough, and fever. Additional recommendations and suggestions are forthcoming. Prognosis is guarded. MMODL / IJN: [id number] / [id number]
[2019-10-21 12:51] VITALS: BMI 22.9
[2019-10-21] MEDS ORDERED: LEVOFLOXACIN 500 MG TAB PO SCH (17:00)
--- NOTE | 2019-10-21 19:40 | P.HPIM ---
History of Present Illness H&P Date: 10/21/19 Chief Complaint: Cough History of presenting complaint: This is a 64-year-old patient who follows with Dr. Maikel Johnson. Chronic stable medical conditions include hypothyroid, GERD, hyperlipidemia, bilateral hemidiaphragmatic paralysis, hiatal hernia, agammaglobebemia, chronic hypoxic respiratory failure on home oxygen 5 L, chronic low back pain, essential tremor. Does use a walker to baseline and does live with her brother. As presented further be fever off and on for a week. Has a congested cough. Unable to expectorate. Short of breath. Appetite is poor. Tired rundown. Admitted for the same. Review of systems: GEN.: Thyroid decreased appetite fever EYES: None HEENT: None NECK: None RESPIRATORY: Congested chest not able to expectorate CARDIOVASCULAR: None GASTROINTESTINAL: None GENITOURINARY: None MUSCULOSKELETAL: Chronic low back pain LYMPHATICS: None HEMATOLOGICAL: None PSYCHIATRY: None NEUROLOGICAL: Does use a walker Past medical history: Asthma, GERD, hyperlipidemia, obstructive sleep apnea, hypothyroid, chronic bilateral hemidiaphragmatic paralysis, hiatal hernia, basal cell carcinoma, home oxygen 5 L, and hepatitis, osteoporosis, fracture of the spine, agammaglobebemia, essential tremor Social history: Does not smoke or drink alcohol. Is a , lives with her brother, uses a walker Physical examination: VITAL SIGNS: 99.2, 80, 18, 159/85, 96% on 6 L GENERAL: BMI 22.9, laying in bed, tired EYES: Pupils equal. Conjunctiva normal. HEENT: External appearance of nose and ears normal, oral cavity dry mucous membranes NECK: JVD not raised; masses not palpable. HEART: First and second heart sounds are normal; no edema. LUNGS: Respiratory rate increased, diminished breath sounds prolonged expiration. ABDOMEN: Soft, nontender, liver spleen not palpable, no masses palpable. PSYCH: Answering questions. NEUROLOGICAL: Cranial nerves grossly intact; no facial asymmetry, power and sensation grossly intact,. LYMPHATICS: No lymph nodes palpable in the axilla and neck INVESTIGATIONS, reviewed in the clinical context: White count 7.6 hemoglobin 12.8 platelets 162 potassium 4.6 bun 21 creatinine 1.20 Troponin I less than 0.012, proBNP 21 EKG tracing personally reviewed by me- Chest x-ray film personally reviewed by me-questionable basal infiltrate with elevated diaphragms Previous testing: Bun 15 creatinine 0.82 Assessment: -Acute exacerbation of moderate persistent asthma,from acute tracheobronchitis POA -Acute renal failure, likely prerenal from decreased oral intake, POA -Hypothyroidism. -GERD -Hyperlipidemia -Chronic bilateral hemidiaphragmatic paralysis -Hiatal hernia -Chronic hypoxic respiratory failure on home oxygen 5 L -Chronic low back pain -COVID-19 being ruled out Plan: home medications resumed.started on Levaquin. Also on Serevent discus IV steroids Symbicort. Pulmonary Dr. Carreno is on the case. Care was discussed with the patient. Lovenox for DVT prophylaxis. 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, adrenal insufficiency, hiatal hernia, basal cell carcinoma of the skin, uses cane , uses oxygen continous at 3L, irregular bowel movements, hx endocarditis,osteoporosis, hx fx spine agammaglobulinemia History of Any Multi-Drug Resistant Organisms: None Reported Past Surgical History: Adenoidectomy, Appendectomy, Back Surgery, Breast Surgery , Cholecystectomy, Hysterectomy, Joint Replacement, Tonsillectomy Additional Past Surgical History / Comment(s): left knee replacement, left knee arthroscopy, breast biopsy-rt, mino breast reduction, hemorrhoidectomy, back surgery fusion with additional surgery X1, Past Anesthesia/Blood Transfusion Reactions: Family History of Problems w/ Anesthesia, Motion Sickness Additional Past Anesthesia/Blood Transfusion Reaction / Comment(s): "brother was awake during whole surgery" Past Psychological History: No Psychological Hx Reported Smoking Status: Never smoker Past Alcohol Use History: None Reported Past Drug Use History: None Reported Additional Drug Use History / Comment(s): around second hand smoke all her life - Past Family History Mother Family Medical History: Cancer Father Family Medical History: Cancer Medications and Allergies Home Medications Medication Instructions Recorded Confirmed Type Lovastatin [Mevacor] 20 mg PO DAILY 02/14/14 10/20/19 History rOPINIRole HCL [Requip] 2 mg PO HS 02/14/14 10/20/19 History predniSONE [Prednisone] 5 mg PO DAILY 11/05/15 10/20/19 History Montelukast [Singulair] 10 mg PO HS 01/21/17 10/20/19 History Buprenorphine HCl [Belbuca] 150 mcg SL Q12H 02/23/19 10/20/19 History DULoxetine HCL [Cymbalta] 30 mg PO HS 02/23/19 10/20/19 History Levothyroxine Sodium [Synthroid] 300 mcg PO DAILY 02/23/19 10/20/19 History Topiramate [Topamax] 100 mg PO BID 02/23/19 10/20/19 History Hizentra Home Infusion 2 mg SQ Q14D 08/05/19 10/20/19 History Albuterol Nebulized [Ventolin 2.5 mg INHALATION RT-Q4H PRN 09/03/19 10/20/19 History Nebulized] Alendronate Sodium [Fosamax] 70 mg PO Q7D 09/03/19 10/20/19 History Budesonide [Pulmicort] 0.5 mg INHALATION RT-BID 09/03/19 10/20/19 History Diclofenac Sodium [Voltaren] 75 mg PO BID 09/03/19 10/20/19 History Formoterol Fumarate [Perforomist] 20 mcg INHALATION RT-BID 09/03/19 10/20/19 History Mupirocin 2% Oint [Bactroban 2% 1 applic TOPICAL TID 09/03/19 10/20/19 History Oint] Triamcinolone Acetonide 1 applic TOPICAL BID 09/03/19 10/20/19 History [Triamcinolone Acetonide 0.025%] Famotidine [Pepcid] 20 mg PO BID #60 tablet 09/07/19 10/20/19 Rx Mirtazapine 15 mg PO HS #0 09/07/19 10/20/19 Rx Primidone [Mysoline] 25 mg PO TID #60 tablet 09/07/19 10/20/19 Rx Baclofen [Lioresal] 10 mg PO QID PRN 10/20/19 10/20/19 History traMADol HCL 50 mg PO QID 10/20/19 10/20/19 History Allergies Allergy/AdvReac Type Severity Reaction Status Date / Time aspirin Allergy Rash/Hives Verified 10/20/19 16:38 bee pollen Allergy Anaphylaxis Verified 10/20/19 16:38 cefdinir [From Omnicef] Allergy Anaphylaxis Verified 10/20/19 16:38 clarithromycin [From Biaxin] Allergy Anaphylaxis Verified 10/20/19 16:38 ibuprofen [From Advil] Allergy Anaphylaxis Verified 10/20/19 16:38 Iodinated Contrast Media Allergy SWELLING Verified 10/20/19 16:38 [Iodinated Contrast Media - OF THROAT IV Dye] iodine Allergy Anaphylaxis Verified 10/20/19 16:38 omalizumab [From Xolair] Allergy Anaphylaxis Verified 10/20/19 16:38 prochlorperazine edisylate Allergy Rash/Hives Verified 10/20/19 16:38 [From Compazine] prochlorperazine maleate Allergy Rash/Hives Verified 10/20/19 16:38 [From Compazine] shellfish derived Allergy Anaphylaxis Verified 10/20/19 16:38 Penicillins AdvReac Dyspnea Verified 10/20/19 16:38 Physical Exam Vitals: Vital Signs Temp Pulse Pulse Resp BP BP Pulse Ox 10/21/19 04:00 97.9 F 76 16 124/74 94 L 10/21/19 00:00 98.0 F 72 18 108/71 95 10/20/19 21:21 98.8 F 81 16 130/77 95 10/20/19 20:00 81 16 10/20/19 18:25 98.7 F 80 22 122/88 97 10/20/19 17:48 99 20 10/20/19 17:37 95 20 10/20/19 17:24 99.0 F 96 20 135/89 96 10/20/19 16:12 96 20 10/20/19 16:02 94 20 10/20/19 15:39 70 20 130/65 100 10/20/19 13:36 99.2 F 80 18 159/85 96 Intake and Output 10/20/19 10/21/19 10/21/19 22:59 06:59 14:59 Intake Total 500 Balance 500 Intake: Intake, IV Titration 500 Amount Lactated Ringers 1,000 ml 500 @ 100 mls/hr IV .Q10H [facility] Rx#:[id number] Other: Weight 62.596 kg 66.4 kg Results CBC & Chem 7: 10/20/19 14:32 10/20/19 14:22 Labs: Abnormal Lab Results - Last 24 Hours (Table) 10/20/19 10/20/19 Range/Units 14:22 21:58 Carbon Dioxide 33 H (22-30) mmol/L BUN 21 H (7-17) mg/dL Creatinine 1.20 H (0.52-1.04) mg/dL POC Glucose (mg/dL) 110 H (75-99) mg/dL AST 60 H (14-36) U/L ALT 40 H (4-34) U/L Thrombosis Risk Factor Assmnt - Choose All That Apply Each Factor Represents 1 point: Abnormal pulmonary function (COPD) Each Risk Factor Represents 2 Points: Age 61-74 years Thrombosis Risk Factor Assessment Total Risk Factor Score: 3 Thrombosis Risk Factor Assessment Level: Moderate Risk
[2019-10-21] MEDS: FLUTICASONE 220 MCG INHALER INHALATION SCH (20:25)
[2019-10-21] MEDS: guaiFENesin 600 MG TABLET.ER PO SCH (20:26)
[2019-10-21] MEDS: DULoxetine HCL 30 MG CAPSULE.DR PO SCH (20:27)
[2019-10-21] MEDS: MONTELUKAST 10 MG TAB PO SCH (20:27)
[2019-10-21] MEDS: MIRTAZAPINE 15 MG TAB PO SCH (20:28)
[2019-10-21] MEDS: SYMBICORT 160-4.5 MCG INHALER (MHU) INHALATION SCH (20:32)
[2019-10-21] MEDS: methylPREDNISolone SOD SUCCI 40 MG/ML 1 ML VIAL IV SCH (23:17)
[2019-10-22 05:56] LABS: Glucose,Whole Blood 96 mg/dL (75-99)
[2019-10-22] MEDS: INSULIN ASPART (NovoLOG) 100 UNIT/ML VIAL SQ SCH ×2 (06:12→12:19)
[2019-10-22] MEDS: LEVOTHYROXINE 100 MCG TAB PO SCH (06:18)
[2019-10-22 06:29] VITALS: TEMP 98.1
[2019-10-22] MEDS: SALMETEROL 50 MCG INHALATION SCH (07:59)
[2019-10-22] MEDS: TIOTROPIUM 18 MCG/PUFF INHALER INHALATION SCH (07:59)
[2019-10-22] MEDS: ALBUTEROL INHALER 60 PUFF/8 GM INHALER (MHU) INHALATION SCH ×2 (08:00→11:29)
[2019-10-22] MEDS: SYMBICORT 160-4.5 MCG INHALER (MHU) INHALATION SCH (08:00)
[2019-10-22] MEDS: TOPIRAMATE 100 MG TAB PO SCH (10:06)
[2019-10-22] MEDS: guaiFENesin 600 MG TABLET.ER PO SCH (10:06)
[2019-10-22] MEDS: traMADol 50 MG TAB PO SCH ×2 (10:06→15:01)
[2019-10-22] MEDS: ATORVASTATIN 10 MG TAB PO SCH (10:06)
[2019-10-22] MEDS: methylPREDNISolone SOD SUCCI 40 MG/ML 1 ML VIAL IV SCH (10:06)
[2019-10-22] MEDS: ENOXAPARIN 40 MG/0.4 ML SYRINGE SQ SCH (10:06)
[2019-10-22] MEDS: FAMOTIDINE 20 MG TAB PO SCH (10:06)
[2019-10-22] MEDS: Buprenorphine Hcl [Belbuca] SUBLINGUAL SCH (10:07)
[2019-10-22] MEDS: PRIMIDONE 25 MG TAB PO SCH (10:08)
[2019-10-22] MEDS: ETODOLAC 400 MG TAB PO SCH (10:08)
[2019-10-22] MEDS: TRIAMCINOLONE ACET 0.1% OINTMENT 15 GM TUBE TOPICAL SCH (10:09)
[2019-10-22] MEDS: MUPIROCIN 2% OINT 22 GM TUBE TOPICAL SCH (10:09)
[2019-10-22] MEDS: LACTATED RINGERS 1,000 ML IV SCH (10:50)
[2019-10-22 11:40] LABS: Glucose,Whole Blood 90 mg/dL (75-99)
--- NOTE | 2019-10-22 14:33 | P.PN ---
Subjective Progress Note Date: 10/22/19 Principal diagnosis: Acute exacerbation of chronic obstructive pulmonary disease without clear evidence of pneumonia The patient is seen today 10/22/2019 in follow-up on the selective care unit. She is currently resting in bed. Awake and alert in no acute distress. She is maintaining O2 saturations in the low 90s on 5 L/m per nasal cannula. She's afebrile. Hemodynamically stable. Blood culture reveals no growth. Blood glucose 90. She is continued on Symbicort, albuterol, IV Solu-Medrol, Singulair. She is anxious to go home. Objective - Vital Signs Vital signs: Vital Signs Temp 98.1 F 10/22/19 06:27 Pulse 62 10/22/19 08:35 Resp 18 10/22/19 08:35 BP 115/79 10/22/19 06:27 Pulse Ox 90 L 10/22/19 08:35 Intake & Output 10/21/19 10/22/19 10/22/19 18:59 06:59 18:59 Intake Total 210 880 480 Balance 210 880 480 Weight 66.4 kg 60 kg Intake: Intake, IV Titration 700 Amount Lactated Ringers 1,000 ml 700 @ 100 mls/hr IV .Q10H [facility] Rx#:[id number] Oral 210 180 480 Other: # Voids 1 - Exam GENERAL EXAM: Alert, pleasant 64-year-old female patient, appears older than stated age, on 5 L nasal cannula, comfortable in no apparent distress. HEAD: Normocephalic. EYES: Normal reaction of pupils, equal size. NOSE: Clear with pink turbinates. THROAT: No erythema or exudates. NECK: No masses, no JVD. CHEST: No chest wall deformity. LUNGS: Equal air entry with bilateral end expiratory wheeze, diminished. CVS: S1 and S2 normal with no audible murmur, regular rhythm. ABDOMEN: No hepatosplenomegaly, normal bowel sounds, no guarding or rigidity. SPINE: No scoliosis or deformity SKIN: No rashes CENTRAL NERVOUS SYSTEM: No focal deficits, tone is normal in all 4 extremities. EXTREMITIES: There is no peripheral edema. No clubbing, no cyanosis. Peripheral pulses are intact. - Labs CBC & Chem 7: 10/20/19 14:32 10/20/19 14:22 Labs: Microbiology - Last 24 Hours (Table) 10/20/19 14:28 Blood Culture - Preliminary Blood No Growth after 24 hours Assessment and Plan Assessment: 1 Acute on chronic hypoxic/hypercapnic respiratory failure secondary to an acute exacerbation of chronic obstructive pulmonary disease, complicated by tracheobronchitis, no evidence of andrea pneumonia, COVID 19 results pending 2 Chronic restrictive lung disease secondary to diaphragmatic myopathy of unclear etiology 3 Common variable immunodeficiency syndrome currently on home infusions of immunoglobulin 4 History of skin cancer 5 Gastric esophageal reflux disease 6 Hyperlipidemia 7 Obstructive sleep apnea 8 Hypothyroidism Plan: The patient was seen and evaluated by Dr. Steven. She is cleared for discharge from the pulmonary standpoint. Her overall prognosis remains guarded. She had initially been on AVAPS machine which she had since stopped using. Continue her home pulmonary medications. Complete a course of prednisone taper starting at 40 g daily for 4 days. COVID 19 results are pending. She is educated regarding the importance of home isolation if discharged today per medicine. I, the cosigning physician, performed a history & physical examination of the patient. Lungs sounds with bilateral end expiratory wheeze, diminished. Main taining good O2 saturations in the 90s on 5 L/m per nasal cannula. I discussed the assessment and plan of care with my nurse practitioner, Eneida Valdez. I attest to the above note as dictated by her.
[2019-10-22 15:02] VITALS: BP 136/78; PULSE 72; RESP 16
--- NOTE | 2019-10-22 19:27 | P.DS ---
Providers Date of admission: 10/20/19 16:10 Expected date of discharge: 10/22/19 Attending physician: Prashant Castro Consults: 10/20/19 18:33 Consult Physician Routine Consulting Provider: Sumeet Steven Consult Reason/Comments: copd Do you want consulting provider notified?: Yes Primary care physician: Maikel Johnson [facility] Course: Chief Complaint: Cough History of presenting complaint: This is a 64-year-old patient who follows with Dr. Maikel Johnson. Chronic stable medical conditions include hypothyroid, GERD, hyperlipidemia, bilateral hemidia phragmatic paralysis, hiatal hernia, agammaglobebemia, chronic hypoxic respiratory failure on home oxygen 5 L, chronic low back pain, essential tremor. Does use a walker to baseline and does live with her brother. As presented further be fever off and on for a week. Has a congested cough. Unable to expectorate. Short of breath. Appetite is poor. Tired rundown. Admitted for the same. Today-feeling better. Less cough. Patient seen by Dr. Carreno earlier. Okay to be discharged. Patient very keen to go home. Discussed with patient. Consultation: Dr. Carreno from pulmonary Physical examination: VITAL SIGNS: 98.1, 62, 18, 136/78, 96% on 5 L GENERAL: BMI 22.9, laying in bed, tired EYES: Pupils equal. Conjunctiva normal. HEENT: External appearance of nose and ears normal, oral cavity dry mucous membranes NECK: JVD not raised; masses not palpable. HEART: First and second heart sounds are normal; no edema. LUNGS: Respiratory rate increased, diminished breath sounds prolonged exp iration. ABDOMEN: Soft, nontender, liver spleen not palpable, no masses palpable. PSYCH: Answering questions. INVESTIGATIONS, reviewed in the clinical context: White count 7.6 hemoglobin 12.8 platelets 162 potassium 4.6 bun 21 creatinine 1.20 Troponin I less than 0.012, proBNP 21 EKG tracing personally reviewed by me- Chest x-ray film personally reviewed by me-questionable basal infiltrate with elevated diaphragms Previous testing: Bun 15 creatinine 0.82 Assessment: -Acute exacerbation of moderate persistent asthma,from acute tracheobronchitis POA -Acute renal failure, likely prerenal from decreased oral intake, POA -Hypothyroidism. -GERD -Hyperlipidemia -Chronic bilateral hemidiaphragmatic paralysis -Hiatal hernia -Chronic hypoxic respiratory failure on home oxygen 5 L -Chronic low back pain -COVID-19 being ruled out Disposition: Home Patient Condition at Discharge: Stable Plan - Discharge Summary Discharge Rx Participant: No New Discharge Prescriptions: New Levofloxacin [Levaquin] 500 mg PO DAILY@1700 #5 tab Continue rOPINIRole HCL [Requip] 2 mg PO HS Lovastatin [Mevacor] 20 mg PO DAILY predniSONE [Prednisone] 5 mg PO DAILY Montelukast [Singulair] 10 mg PO HS Buprenorphine HCl [Belbuca] 150 mcg SL Q12H DULoxetine HCL [Cymbalta] 30 mg PO HS Levothyroxine Sodium [Synthroid] 300 mcg PO DAILY Topiramate [Topamax] 100 mg PO BID Hizentra Home Infusion 2 mg SQ Q14D Triamcinolone Acetonide [Triamcinolone Acetonide 0.025%] 1 applic TOPICAL BID Mupirocin 2% Oint [Bactroban 2% Oint] 1 applic TOPICAL TID Formoterol Fumarate [Perforomist] 20 mcg INHALATION RT-BID Alendronate Sodium [Fosamax] 70 mg PO Q7D Budesonide [Pulmicort] 0.5 mg INHALATION RT-BID Diclofenac Sodium [Voltaren] 75 mg PO BID Albuterol Nebulized [Ventolin Nebulized] 2.5 mg INHALATION RT-Q4H PRN PRN Reason: Shortness Of Breath Famotidine [Pepcid] 20 mg PO BID #60 tablet Mirtazapine 15 mg PO HS #0 Primidone [Mysoline] 25 mg PO TID #60 tablet Baclofen [Lioresal] 10 mg PO QID PRN PRN Reason: Pain traMADol HCL 50 mg PO QID Discharge Medication List Lovastatin [Mevacor] 20 mg PO DAILY 02/14/14 [History] rOPINIRole HCL [Requip] 2 mg PO HS 02/14/14 [History] predniSONE [Prednisone] 5 mg PO DAILY 11/05/15 [History] Montelukast [Singulair] 10 mg PO HS 01/21/17 [History] Buprenorphine HCl [Belbuca] 150 mcg SL Q12H 02/23/19 [History] DULoxetine HCL [Cymbalta] 30 mg PO HS 02/23/19 [History] Levothyroxine Sodium [Synthroid] 300 mcg PO DAILY 02/23/19 [History] Topiramate [Topamax] 100 mg PO BID 02/23/19 [History] Hizentra Home Infusion 2 mg SQ Q14D 08/05/19 [History] Albuterol Nebulized [Ventolin Nebulized] 2.5 mg INHALATION RT-Q4H PRN 09/03/19 [History] Alendronate Sodium [Fosamax] 70 mg PO Q7D 09/03/19 [History] Budesonide [Pulmicort] 0.5 mg INHALATION RT-BID 09/03/19 [History] Diclofenac Sodium [Voltaren] 75 mg PO BID 09/03/19 [History] Formoterol Fumarate [Perforomist] 20 mcg INHALATION RT-BID 09/03/19 [History] Mupirocin 2% Oint [Bactroban 2% Oint] 1 applic TOPICAL TID 09/03/19 [History] Triamcinolone Acetonide [Triamcinolone Acetonide 0.025%] 1 applic TOPICAL BID 09/03/19 [History] Famotidine [Pepcid] 20 mg PO BID #60 tablet 09/07/19 [Rx] Mirtazapine 15 mg PO HS #0 09/07/19 [Rx] Primidone [Mysoline] 25 mg PO TID #60 tablet 09/07/19 [Rx] Baclofen [Lioresal] 10 mg PO QID PRN 10/20/19 [History] traMADol HCL 50 mg PO QID 10/20/19 [History] Levofloxacin [Levaquin] 500 mg PO DAILY@1700 #5 tab 10/22/19 [Rx] Follow up Appointment(s)/Referral(s): Maikel Johnson MD [Primary Care Provider] - 1-2 days Sumeet Steven DO [Doctor of Osteopathic Medicine] - 1 Week Patient Instructions/Handouts: COPD (Chronic Obstructive Pulmonary Disease) (DC) Discharge Disposition: HOME SELF-CARE
== END 2019-10-22 16:18 | disposition home or self-care (01) | DRG 202 ==
LOC: EC 13:33 → 3SCARD 16:10
PROVIDERS: ADMIT Hospitalist; ATTEND Hospitalist
DX: J45.41 Moderate persistent asthma with (acute) exacerbation (principal); J44.1 Chronic obstructive pulmonary disease with (acute) exacerbation; J44.0 Chronic obstructive pulmonary disease with (acute) lower respiratory infection; N17.9 Acute kidney failure, unspecified; D83.9 Common variable immunodeficiency, unspecified; E27.40 Unspecified adrenocortical insufficiency; J96.11 Chronic respiratory failure with hypoxia; J20.9 Acute bronchitis, unspecified; J98.4 Other disorders of lung; J98.6 Disorders of diaphragm; K21.9 Gastro-esophageal reflux disease without esophagitis; K44.9 Diaphragmatic hernia without obstruction or gangrene; M81.0 Age-related osteoporosis without current pathological fracture; E03.9 Hypothyroidism, unspecified; E78.5 Hyperlipidemia, unspecified; G25.0 Essential tremor; G47.33 Obstructive sleep apnea (adult) (pediatric); Z20.828 Contact with and (suspected) exposure to other viral communicable diseases; G89.29 Other chronic pain; Z79.83 Long term (current) use of bisphosphonates; Z79.890 Hormone replacement therapy; Z79.899 Other long term (current) drug therapy; Z85.828 Personal history of other malignant neoplasm of skin; Z86.79 Personal history of other diseases of the circulatory system; Z87.01 Personal history of pneumonia (recurrent); Z90.710 Acquired absence of both cervix and uterus; Z96.652 Presence of left artificial knee joint; Z99.81 Dependence on supplemental oxygen
CPT/HCPCS: 36415; 71046; 80053; 83605; 83735; 83880; 84484; 85025; 85610; 85730; 87040; 87502; 93005; 94640; 96361; 96365; 96375; 99285

== ENCOUNTER → 2020-03-29 | Outpatient (CLI) | payer BC ==
--- NOTE | 2020-04-03 10:30 | MM ---
Reason for exam: screening (asymptomatic). Last mammogram was performed 1 year and 3 months ago. History: Patient is postmenopausal, has history of breast cancer at age 25, and history of other cancer. Family history of breast cancer in mother at age 66 and breast cancer in maternal grandmother. Reduction of the left breast. Reduction of the right breast. Excisional biopsy of the left breast. Excisional biopsy of the right breast. Lumpectomy of the right breast. Took estrogen for 6 months beginning at age 25. Took progesterone for 6 months beginning at age 25. Physical Findings: A clinical breast exam by your physician is recommended on an annual basis and results should be correlated with mammographic findings. MG Screening Mammo w CAD Bilateral CC and MLO view(s) were taken. Prior study comparison: December 30, 2018, bilateral MG 3d screening mammo w/cad. July 13, 2015, bilateral MG screening mammo w CAD. There are scattered fibroglandular densities. New oval subareolar nodule left MLO view. ASSESSMENT: Incomplete: need additional imaging evaluation, BI-RAD 0 RECOMMENDATION: Special view mammogram of the left breast. (3D) If lesion persists on supplemental views, image directed ultrasound is recommended. [facility] will attempt to contact patient to return for supplemental views and ultrasound if indicated.
== END | disposition home or self-care (01) ==
LOC: RADMAMWWP 10:53
PROVIDERS: ATTEND Family Medicine
DX: Z12.31 Encounter for screening mammogram for malignant neoplasm of breast (principal)
CPT/HCPCS: 77067

== ENCOUNTER → 2020-04-05 | Outpatient (CLI) | payer BC ==
--- NOTE | 2020-04-06 09:51 | MM ---
Reason for exam: additional evaluation requested from abnormal screening. Last mammogram was performed less than 1 month ago. History: Patient is postmenopausal, has history of breast cancer at age 25, and history of other cancer. Family history of breast cancer in mother at age 66 and breast cancer in maternal grandmother. Reduction of the left breast. Reduction of the right breast. Excisional biopsy of the left breast. Excisional biopsy of the right breast. Lumpectomy of the right breast. Took estrogen for 6 months beginning at age 25. Took progesterone for 6 months beginning at age 25. Physical Findings: Nurse did not find any significant physical abnormalities on exam. MG Work Up Mamm w CAD LT Spot compression CC, spot compression MLO, and LM view(s) were taken of the left breast. Prior study comparison: March 29, 2020, bilateral MG screening mammo w CAD. December 30, 2018, bilateral MG 3d screening mammo w/cad. The breast tissue is heterogeneously dense. This may lower the sensitivity of mammography. There is no discrete abnormality including area of concern. These results were verbally communicated with the patient and result sheet given to the patient on 04/05/20. ASSESSMENT: Negative, BI-RAD 1 RECOMMENDATION: Return to routine screening mammogram schedule for both breasts.
== END | disposition home or self-care (01) ==
LOC: RADMAMWWP 13:44
PROVIDERS: ATTEND Family Medicine
DX: R92.8 Other abnormal and inconclusive findings on diagnostic imaging of breast (principal)
CPT/HCPCS: 77065

== ENCOUNTER 2020-06-13 18:52 | Emergency (ER) | payer BC ==
--- NOTE | 2020-06-13 21:04 | XR ---
EXAMINATION TYPE: XR Hip RT and AP Pelvis DATE OF EXAM: 06/13/2020 COMPARISON: NONE HISTORY: Right hip pain status post fall. TECHNIQUE: A single AP view of the pelvis is obtained. Two views of the right hip are obtained. FINDINGS: There is no acute fracture/dislocation evident in the pelvis. The hip and sacroiliac join ts demonstrate mild osteoarthritis. The overlying soft tissue appears unremarkable. Surgical screw o verlying the right sacrum is seen. Two views of right hip show no acute fracture or dislocation. No focal lytic or sclerotic lesion see n in the proximal right femur. The overlying soft tissue is unremarkable. IMPRESSION: There is no acute fracture or dislocation in the pelvis or right hip.
[2020-06-13] MEDS ORDERED: ORPHENADRINE 30 MG/ML 2 ML VIAL IM STA (21:14)
[2020-06-13] MEDS ORDERED: traMADol 50 MG TAB PO STA (21:14)
--- NOTE | 2020-06-13 21:21 | ED ---
General Adult HPI - General Chief complaint: Extremity Injury, Lower Stated complaint: trouble walking/hip pain Time Seen by Provider: 06/13/20 20:47 Source: patient, family Mode of arrival: ambulatory Limitations: no limitations - History of Present Illness Initial comments: 65-year-old female presents to the emergency Department with complaints of right hip pain status post fall yesterday evening. Patient states she was using her cane and reaching forward when she lost her balance and fell on her right hip. She denies hitting her head or losing consciousness with the fall. Reports resting throughout the day today hoping the pain would ease. Did try a Lidoderm patch with no improvement. States pain worsens with ambulation and palpation of a localized area on the right buttock. Denies any loss of sensation, saddle anesthesia, or bowel and bladder changes. Patient denies any headache, neck pain, chest pain, shortness of breath, dizziness, weakness, abdominal pain, nausea, or vomiting. - Related Data Home Medications Medication Instructions Recorded Confirmed Lovastatin [Mevacor] 20 mg PO DAILY 02/14/14 10/20/19 rOPINIRole HCL [Requip] 2 mg PO HS 02/14/14 10/20/19 predniSONE [Prednisone] 5 mg PO DAILY 11/05/15 10/20/19 Montelukast [Singulair] 10 mg PO HS 01/21/17 10/20/19 Buprenorphine HCl [Belbuca] 150 mcg SL Q12H 02/23/19 10/20/19 DULoxetine HCL [Cymbalta] 30 mg PO HS 02/23/19 10/20/19 Levothyroxine Sodium [Synthroid] 300 mcg PO DAILY 02/23/19 10/20/19 Topiramate [Topamax] 100 mg PO BID 02/23/19 10/20/19 [facility] 2 mg SQ Q14D 08/05/19 10/20/19 Albuterol Nebulized [Ventolin 2.5 mg INHALATION RT-Q4H PRN 09/03/19 10/20/19 Nebulized] Alendronate Sodium [Fosamax] 70 mg PO Q7D 09/03/19 10/20/19 Budesonide [Pulmicort] 0.5 mg INHALATION RT-BID 09/03/19 10/20/19 Diclofenac Sodium [Voltaren] 75 mg PO BID 09/03/19 10/20/19 Formoterol Fumarate [Perforomist] 20 mcg INHALATION RT-BID 09/03/19 10/20/19 Mupirocin 2% Oint [Bactroban 2% 1 applic TOPICAL TID 09/03/19 10/20/19 Oint] Triamcinolone Acetonide 1 applic TOPICAL BID 09/03/19 10/20/19 [Triamcinolone Acetonide 0.025%] Baclofen [Lioresal] 10 mg PO QID PRN 10/20/19 10/20/19 traMADol HCL 50 mg PO QID 10/20/19 10/20/19 Previous Rx's Medication Instructions Recorded Famotidine [Pepcid] 20 mg PO BID #60 tablet 09/07/19 Mirtazapine 15 mg PO HS #0 09/07/19 Primidone [Mysoline] 25 mg PO TID #60 tablet 09/07/19 Levofloxacin [Levaquin] 500 mg PO DAILY@1700 #5 tab 10/22/19 Cyclobenzaprine [Flexeril] 10 mg PO TID #15 tab 06/13/20 Allergies Allergy/AdvReac Type Severity Reaction Status Date / Time aspirin Allergy Rash/Hives Verified 06/13/20 19:34 bee pollen Allergy Anaphylaxis Verified 06/13/20 19:34 cefdinir [From Omnicef] Allergy Anaphylaxis Verified 06/13/20 19:34 clarithromycin [From Biaxin] Allergy Anaphylaxis Verified 06/13/20 19:34 ibuprofen [From Advil] Allergy Anaphylaxis Verified 06/13/20 19:34 Iodinated Contrast Media Allergy SWELLING Verified 06/13/20 19:34 [Iodinated Contrast Media - OF THROAT IV Dye] iodine Allergy Anaphylaxis Verified 06/13/20 19:34 omalizumab [From Xolair] Allergy Anaphylaxis Verified 06/13/20 19:34 prochlorperazine edisylate Allergy Rash/Hives Verified 06/13/20 19:34 [From Compazine] prochlorperazine maleate Allergy Rash/Hives Verified 06/13/20 19:34 [From Compazine] shellfish derived Allergy Anaphylaxis Verified 06/13/20 19:34 Penicillins AdvReac Dyspnea Verified 06/13/20 19:34 Review of Systems ROS Statement: Those systems with pertinent positive or pertinent negative responses have been documented in the HPI. ROS Other: All systems not noted in ROS Statement are negative. 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, adrenal insufficiency, hiatal hernia, basal cell carcinoma of the skin, uses cane , uses oxygen continous at 3L, irregular bowel movements, hx endocarditis,osteoporosis, hx fx spine agammaglobulinemia History of Any Multi-Drug Resistant Organisms: None Reported Past Surgical History: Adenoidectomy, Appendectomy, Back Surgery, Breast Surgery, Cholecystectomy, Hysterectomy, Joint Replacement, Tonsillectomy Additional Past Surgical History / Comment(s): left knee replacement, left knee arthroscopy, breast biopsy-rt, mino breast reduction, hemorrhoidectomy, back surgery fusion with additional surgery X1, Past Anesthesia/Blood Transfusion Reactions: Family History of Problems w/ Anesthesia, Motion Sickness Additional Past Anesthesia/Blood Transfusion Reaction / Comment(s): "brother was awake during whole surgery" Past Psychological History: No Psychological Hx Reported Smoking Status: Never smoker Past Alcohol Use History: None Reported Past Drug Use History: None Reported - Past Family History Mother Family Medical History: Cancer Father Family Medical History: Cancer General Exam Limitations: no limitations (Well-developed, well-nourished female in moderate amount of discomfort. Initial temperature 98.2F, pulse 81, respirations 22, blood pressure 151/68, pulse ox 99% on room air.) General appearance: alert Respiratory exam: Present: normal lung sounds bilaterally, other (Diminished lung sounds. Patient does wear oxygen via NC at home at all times). Absent: respiratory distress, wheezes Cardiovascular Exam: Present: regular rate, normal rhythm, normal heart sounds. Absent: systolic murmur, diastolic murmur, rubs, gallop, clicks GI/Abdominal exam: Present: soft, normal bowel sounds. Absent: distended, tenderness, guarding, rebound, rigid Extremities exam: Present: normal inspection, normal capillary refill, other (Ut ilizes a cane for ambulation. Does have right upper extremity in a sling due to a previous right-sided chest wall injury; denies any further injury due to fall.). Absent: tenderness, pedal edema, joint swelling, calf tenderness Back exam: Present: normal inspection, tenderness (Localized area of tenderness in the right buttock). Absent: full ROM (RLE Range of motion limited due to pain in the right buttock/hip), paraspinal tenderness, vertebral tenderness Neurological exam: Present: alert, oriented X3, CN II-XII intact Course Vital Signs 06/13/20 06/13/20 19:29 21:52 Temperature 98.2 F 98.4 F Pulse Rate 81 71 Respiratory 22 17 Rate Blood Pressure 151/68 137/89 O2 Sat by Pulse 99 100 Oximetry Medical Decision Making - Medical Decision Making 65-year-old female presents to emergency Department with complaints of right hip pain status post fall yesterday. Patient is ambulatory at home with a cane, however has experienced occasional episodes of poor coordination due to the immobilization of the right upper extremity in a sling. States her fall yesterday occurred when she reached out with her left arm and did not shift her weight to accommodate this action resulting in her fall onto the right buttock. Patient has continued to be ambulatory at home but has had persistent tenderness in the right buttock that worsens with movement and position change therefore came to the emergency department for evaluation. Patient does have tramadol at home but has not taken any since her fall. Xray of the right hip and pelvis was obtained showing no acute fracture or dislocation. Patient was given a dose of Tramadol and an injection of Norflex and reports improvement upon departure. Return parameters were discussed in detail, as was follow up care. Patient verbalizes understanding and agrees with this plan. - Radiology Data Radiology results: report reviewed X-ray of the right hip and pelvis was obtained. Impression per Dr. Thorpe states there is no acute fracture or dislocation in the right pelvis or right hip. Disposition Clinical Impression: Contusion of lower back, Low back pain Disposition: HOME SELF-CARE Condition: Good Instructions (If sedation given, give patient instructions): Acute Low Back Pain (ED), Hip Pain (ED) Additional Instructions: Rest. Slowly increase activity as tolerated. Continue regular home medicines to treat pain. Follow-up with your primary care provider for recheck in the next 1-2 days. Return to emergency department with any new, worsening, or concerning symptoms. Prescriptions: Cyclobenzaprine [Flexeril] 10 mg PO TID #15 tab Is patient prescribed a controlled substance at d/c from ED?: No Referrals: Maikel Johnson MD [Primary Care Provider] - 1-2 days Naresh Streeter DO [Doctor of Osteopathic Medicine] - 1-2 days Time of Disposition: 21:27
[2020-06-13 21:58] VITALS: BP 137/89; PULSE 71; RESP 17; TEMP 98.4
== END 2020-06-13 21:52 | disposition home or self-care (01) ==
LOC: EC 18:52
DX: S30.0XXA Contusion of lower back and pelvis, initial encounter (principal); J44.9 Chronic obstructive pulmonary disease, unspecified; K21.9 Gastro-esophageal reflux disease without esophagitis; E78.5 Hyperlipidemia, unspecified; E07.9 Disorder of thyroid, unspecified; G47.33 Obstructive sleep apnea (adult) (pediatric); Z79.890 Hormone replacement therapy; Z79.899 Other long term (current) drug therapy; Z79.51 Long term (current) use of inhaled steroids; Z88.0 Allergy status to penicillin; Z88.1 Allergy status to other antibiotic agents; Z88.6 Allergy status to analgesic agent; Z88.8 Allergy status to other drugs, medicaments and biological substances; Z91.013 Allergy to seafood; Z91.030 Bee allergy status; Z91.041 Radiographic dye allergy status; Z85.828 Personal history of other malignant neoplasm of skin; Z98.1 Arthrodesis status; Z96.652 Presence of left artificial knee joint; W18.30XA Fall on same level, unspecified, initial encounter
CPT/HCPCS: 73502; 99283; 96372; J2360

== ENCOUNTER 2020-06-28 10:38 | Emergency (ER) | payer BC ==
--- NOTE | 2020-06-28 10:53 | ED ---
Fall HPI - General Chief Complaint: Fall Stated Complaint: fall, rib pain Time Seen by Provider: 06/28/20 10:51 Source: patient Mode of arrival: ambulatory - History of Present Illness Initial Comments: 65-year-old female presenting to emergency Department with the chief complaint of a fall. Patient states yesterday around 6 PM, she slipped on her newly installed floors. Patient reports falling on the right side of her body and elbowed herself on the right side of her chest.. Patient reports localized pain to the right side of her chest, under her right breast. Patient reports the pain is exacerbated with taking deep breaths. Patient states she is typically on 5 L of oxygen at home due to having an elevated diaphragm. Patient states she typically has an oxygen saturation of 88-90%. She also reports hitting her head but no loss of consciousness. Denies taking blood thinners. Denies any episodes of hemoptysis. Also reports pain in the right groin region part icularly when she flexes her right lower hip. She denies any difficulty urinating or hematuria. The patient's daughter also contacted us and advised that the patient has history of opiate dependency. - Related Data Home Medications Medication Instructions Recorded Confirmed Albuterol Nebulized [Ventolin 2.5 mg INHALATION RT-Q4H PRN 06/28/20 06/28/20 Nebulized] Alendronate Sodium [Fosamax] 70 mg PO TU 06/28/20 06/28/20 Baclofen 10 mg PO QID PRN 06/28/20 06/28/20 Budesonide/Formoterol Fumarate 2 puff INHALATION RT-BID 06/28/20 06/28/20 [Symbicort 160-4.5 Mcg Inhaler] Buprenorphine HCl [Belbuca] 300 mcg BC BID 06/28/20 06/28/20 DULoxetine HCL [Cymbalta] 30 mg PO DAILY 06/28/20 06/28/20 Gabapentin [Neurontin] 300 mg PO TID 06/28/20 06/28/20 Levothyroxine Sodium [Tirosint-Carly] 200 mcg SL DAILY 06/28/20 06/28/20 Lovastatin [Mevacor] 20 mg PO DAILY 06/28/20 06/28/20 Meclizine [Antivert] 25 mg PO TID PRN 06/28/20 06/28/20 Mirtazapine [Remeron] 30 mg PO HS 06/28/20 06/28/20 Montelukast [Singulair] 10 mg PO DAILY 06/28/20 06/28/20 Rosuvastatin [Crestor] 10 mg PO HS 06/28/20 06/28/20 Sulfamethox-Tmp 800-160Mg [Bactrim 1 tab PO MOWEFR 06/28/20 06/28/20 DS 800-160 mg] Topiramate [Topamax] 100 mg PO BID 06/28/20 06/28/20 predniSONE 5 mg PO DAILY 06/28/20 06/28/20 rOPINIRole HCL [Requip] 1 mg PO BID 06/28/20 06/28/20 traMADol HCl [Ultram] 50 mg PO TID PRN 06/28/20 06/28/20 Previous Rx's Medication Instructions Recorded Hydrocodone/Acetaminophen [Quinter 1 tab PO Q6HR PRN #12 tab 06/28/20 5-325] Allergies Allergy/AdvReac Type Severity Reaction Status Date / Time aspirin Allergy Rash/Hives Verified 06/28/20 13:28 bee pollen Allergy Anaphylaxis Verified 06/28/20 13:28 cefdinir [From Omnicef] Allergy Anaphylaxis Verified 06/28/20 13:28 clarithromycin [From Biaxin] Allergy Anaphylaxis Verified 06/28/20 13:28 ibuprofen [From Advil] Allergy Anaphylaxis Verified 06/28/20 13:28 Iodinated Contrast Media Allergy SWELLING Verified 06/28/20 13:28 [Iodinated Contrast Media - OF THROAT IV Dye] iodine Allergy Anaphylaxis Verified 06/28/20 13:28 omalizumab [From Xolair] Allergy Anaphylaxis Verified 06/28/20 13:28 prochlorperazine edisylate Allergy Rash/Hives Verified 06/28/20 13:28 [From Compazine] prochlorperazine maleate Allergy Rash/Hives Verified 06/28/20 13:28 [From Compazine] shellfish derived Allergy Anaphylaxis Verified 06/28/20 13:28 Penicillins AdvReac Dyspnea Verified 06/28/20 13:28 Review of Systems ROS Statement: Those systems with pertinent positive or pertinent negative responses have been documented in the HPI. ROS Other: All systems not noted in ROS Statement are negative. 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, adrenal insufficiency, hiatal hernia, basal cell carcinoma of the skin, uses cane , uses oxygen continous at 3L, irregular bowel movements, hx endocarditis,osteoporosis, hx fx spine agamm aglobulinemia History of Any Multi-Drug Resistant Organisms: None Reported Past Surgical History: Adenoidectomy, Appendectomy, Back Surgery, Breast Patino rgery, Cholecystectomy, Hysterectomy, Joint Replacement, Tonsillectomy Additional Past Surgical History / Comment(s): left knee replacement, left knee arthroscopy, breast biopsy-rt, mino breast reduction, hemorrhoidectomy, back surgery fusion with additional surgery X1, Past Anesthesia/Blood Transfusion Reactions: Family History of Problems w/ Anest hesia, Motion Sickness Additional Past Anesthesia/Blood Transfusion Reaction / Comment(s): "brother was awake during whole surgery" Past Psychological History: No Psychological Hx Reported Smoking Status: Never smoker Past Alcohol Use History: None Reported Past Drug Use History: None Reported - Past Family History Mother Family Medical History: Cancer Father Family Medical History: Cancer General Exam Limitations: no limitations General appearance: alert, in no apparent distress Head exam: Present: normocephalic, normal inspection. Absent: atraumatic (Small abrasion on the parietal region of the head), other (Negative Malik sign, raccoon eyes, hemotympanum.) Eye exam: Present: normal appearance, PERRL, EOMI Pupils: Present: normal accommodation ENT exam: Present: normal exam, normal oropharynx, mucous membranes moist, TM's normal bilaterally, normal external ear exam Neck exam: Present: normal inspection, full ROM. Absent: tenderness Respiratory exam: Present: normal lung sounds bilaterally, chest wall tenderness (Localized tenderness to the ribs under her right breast.). Absent: respiratory distress, wheezes, rales Cardiovascular Exam: Present: regular rate, normal rhythm, normal heart sounds GI/Abdominal exam: Present: soft, tenderness (Tetanus near the right inguinal region.). Absent: distended, guarding, rebound Extremities exam: Present: normal inspection, full ROM, normal capillary refill, other (+2 dorsalis pedis and posterior tibialis bilaterally.). Absent: t enderness, pedal edema, joint swelling, calf tenderness Back exam: Present: normal inspection, full ROM. Absent: tenderness, CVA tenderness (R), CVA tenderness (L) Neurological exam: Present: alert, oriented X3 Psychiatric exam: Present: normal affect, normal mood Skin exam: Present: warm, dry, intact, normal color Course Vital Signs 06/28/20 06/28/20 06/28/20 10:45 11:22 12:22 Temperature 98 F Pulse Rate 78 77 Respiratory 18 18 Rate Blood Pressure 146/92 102/77 O2 Sat by Pulse 88 L 95 97 Oximetry 06/28/20 06/28/20 13:15 14:01 Temperature Pulse Rate 73 79 Respiratory 20 20 Rate Blood Pressure 102/84 102/84 O2 Sat by Pulse 95 95 Oximetry Medical Decision Making - Medical Decision Making 65-year-old female presenting to the emergency department with a chief complaint of a fall. On physical examination, patient has localized tenderness to the right chest wall where she elbowed herself and on the way down from the fall. She also had an injury to the head with no loss of consciousness. Patient also had some pubic the right lower quadrant region tenderness. Patient was initially given 4 mg of morphine to alleviate the discomfort followed by an immediate chest x-ray to rule out pneumothorax. Chest x-ray showed decreased lung volumes but this appeared to be consistent with most recent imaging. Chest abdomen pelvis CT with contrast revealed an acute displaced fracture posterior right fourth rib and minimally displaced posterior lateral right sixth rib. Low lung volumes are demonstrated with basilar chronic consolidation. Patient already uses a spirometer at home. I will give the patient 12 tablets of Quinter for next 3 days. She was advised not to drive or operate heavy machinery when taking the medication. Opiate form signed. Patient states she feels comfortable going home. She also feels much better after the analgesia. Strict return parameters were thoroughly discussed patient was understanding and agreea ble. Case discussed with physician. - Lab Data Result diagrams: 06/28/20 11:24 06/28/20 11:24 Lab Results 06/28/20 06/28/20 06/28/20 Range/Units 11:24 11:24 11:24 WBC 20.5 H (3.8-10.6) k/uL RBC 4.37 (3.80-5.40) m/uL Hgb 12.2 (11.4-16.0) gm/dL Hct 39.2 (34.0-46.0) % MCV 89.6 (80.0-100.0) fL MCH 28.0 (25.0-35.0) pg MCHC 31.3 (31.0-37.0) g/dL RDW 16.7 H (11.5-15.5) % Plt Count 199 (150-450) k/uL MPV 7.9 Neutrophils % 71 % Lymphocytes % 13 % Monocytes % 10 % Eosinophils % 3 % Basophils % 1 % Neutrophils # 14.5 H (1.3-7.7) k/uL Lymphocytes # 2.6 (1.0-4.8) k/uL Monocytes # 2.1 H (0-1.0) k/uL Eosinophils # 0.6 (0-0.7) k/uL Basophils # 0.2 (0-0.2) k/uL Anisocytosis Slight PT 10.0 (9.0-12.0) sec INR 1.0 (<1.2) APTT 24.2 (22.0-30.0) sec Sodium 140 (137-145) mmol/L Potassium 4.0 (3.5-5.1) mmol/L Chloride 98 (98-107) mmol/L Carbon Dioxide 38 H (22-30) mmol/L Anion Gap 4 mmol/L BUN 26 H (7-17) mg/dL Creatinine 1.30 H (0.52-1.04) mg/dL Est GFR (CKD-EPI)AfAm 50 (>60 ml/min/1.73 sqM) Est GFR (CKD-EPI)NonAf 43 (>60 ml/min/1.73 sqM) Glucose 95 (74-99) mg/dL Calcium 8.5 (8.4-10.2) mg/dL Total Bilirubin 0.4 (0.2-1.3) mg/dL AST 120 H (14-36) U/L ALT 93 H (4-34) U/L Alkaline Phosphatase 83 (38-126) U/L Total Protein 7.7 (6.3-8.2) g/dL Albumin 4.4 (3.5-5.0) g/dL Disposition Clinical Impression: Fall, Fracture of four ribs of right side, Fracture of six ribs of right side, Head injury Disposition: HOME SELF-CARE Condition: Stable Instructions (If sedation given, give patient instructions): Rib Fracture (ED) Additional Instructions: Take prescribed medication as directed. Do not drive or operate heavy machinery when taking the medication. Prescriptions: Hydrocodone/Acetaminophen [Quinter 5-325] 1 tab PO Q6HR PRN #12 tab PRN Reason: Pain Is patient prescribed a controlled substance at d/c from ED?: Yes If prescribed controlled substance>3 days was MAPS reviewed?: Prescribed <3 Days Referrals: Maikel Johnson MD [Primary Care Provider] - 1-2 days Time of Disposition: 14:06
[2020-06-28] MEDS ORDERED: MORPHINE SULFATE 4 MG/ML SYRINGE IVP STA (11:05)
[2020-06-28] MEDS ORDERED: MORPHINE SULFATE 4 MG/ML SYRINGE IM STA (11:10)
--- NOTE | 2020-06-28 11:36 | XR ---
EXAMINATION TYPE: XR pelvis AP view DATE OF EXAM: 06/28/2020 CLINICAL HISTORY: Fall injury with pain. TECHNIQUE: A single AP view of the pelvis is obtained. COMPARISON: Pelvic x-ray June 13, 2020. FINDINGS: Lucency from overlying bowel gas makes evaluation slightly suboptimal. There is no acute fr acture/dislocation evident in the pelvis. The hip and sacroiliac joints appear symmetric and remain intact. Overlying pelvic phleboliths redemonstrated bilaterally. Surgical changes right lumbosacral j unction redemonstrated. IMPRESSION: There is no acute displaced pelvic fracture. No significant change from prior.
--- NOTE | 2020-06-28 11:37 | XR ---
EXAMINATION TYPE: XR chest 1V portable DATE OF EXAM: 06/28/2020 COMPARISON: Chest x-ray October 20, 2019 HISTORY: Fall injury with chest pain. TECHNIQUE: Single AP portable frontal upright view of the chest is obtained. FINDINGS: There is persistent low lung volumes and bibasilar opacities. The cardiac silhouette size is stable and likely normal limits. The osseous structures remain demineralized. Vertebroplasty re demonstrated near thoracolumbar junction. Cholecystectomy clips are redemonstrated. IMPRESSION: [place] lung volumes with bibasilar linear scarring and/or atelectasis redemonstrated.
[2020-06-28] MEDS ORDERED: FAMOTIDINE 20 MG/2 ML VIAL IV STA (11:47)
[2020-06-28] MEDS ORDERED: methylPREDNISolone SOD SUCCI 125 MG/2 ML VIAL IV STA (11:47)
[2020-06-28] MEDS ORDERED: diphenhydrAMINE 50 MG/ML 1 ML VIAL IVP STA (11:48)
[2020-06-28 12:03] LABS: Anisocytosis Slight; Basophils # (A) 0.2 k/uL (0-0.2); Basophils % (A) 1 %; Eosinophils # (A) 0.6 k/uL (0-0.7); Eosinophils % (A) 3 %; HCT 39.2 % (34.0-46.0); HGB 12.2 gm/dL (11.4-16.0); Lymphocytes # (A) 2.6 k/uL (1.0-4.8); Lymphocytes % (A) 13 %; MCHC 31.3 g/dL (31.0-37.0); MCV 89.6 fL (80.0-100.0); Mean Platelet Volume 7.9; Monocytes # (A) 2.1 k/uL (0-1.0); Monocytes % (A) 10 %; Neutrophils # (A) 14.5 k/uL (1.3-7.7); Neutrophils % (A) 71 %; Platelet Count 199 k/uL (150-450); RBC 4.37 m/uL (3.80-5.40); RDW 16.7 % (11.5-15.5); WBC 20.5 k/uL (3.8-10.6)
[2020-06-28 12:17] LABS: Partial Thromboplastin Time 24.2 sec (22.0-30.0)
[2020-06-28 12:21] LABS: Albumin 4.4 g/dL (3.5-5.0); Calcium 8.5 mg/dL (8.4-10.2); Total Bilirubin 0.4 mg/dL (0.2-1.3); Total Protein 7.7 g/dL (6.3-8.2)
[2020-06-28 13:16] VITALS: RESP 20
[2020-06-28] MEDS ORDERED: SODIUM CHLORIDE 0.9% 500 ML 500 ML IV STA (13:21)
--- NOTE | 2020-06-28 13:30 | CT ---
EXAMINATION TYPE: CT ChestAbdPelvis w con DATE OF EXAM: 06/28/2020 COMPARISON: Chest CT October 07, 2011. CT abdomen January 31, 2010.. HISTORY: Fall yesterday with Right sided injury. CT DLP: 2563.6 mGycm. Automated Exposure Control for Dose Reduction was Utilized. CONTRAST: CT scan of the thorax, abdomen and pelvis is performed with IV Contrast, patient injected with 80 mL of Isovue 300. FINDINGS: LUNGS: Persistent low lung volumes with chronic consolidation and/or atelectatic change in the lower lungs. Tiny bilateral pleural effusions on current study. MEDIASTINUM: There are no greater than 1 cm hilar or mediastinal lymph nodes. No cardiomegaly or pe ricardial effusion is seen. LIVER/GB: Cholecystectomy clips are redemonstrated. PANCREAS: No significant abnormality is seen. SPLEEN: No significant abnormality is seen. ADRENALS: No significant abnormality is seen. KIDNEYS: Symmetric cortical medullary uptake and excretion from both kidneys without concerning renal mass or hydronephrosis. BOWEL: No significant abnormality is seen. GENITAL ORGANS: Uterus surgically absent. Scattered bilateral pelvic phleboliths. LYMPH NODES: No greater than 1cm abdominal or pelvic lymph nodes are appreciated. OSSEOUS STRUCTURES: Postsurgical change to the lower lumbar spine. Slight grade 1 anterolisthesis L4 on L5. Partial spinous process resection at mid to lower lumbar levels. Vertebroplasty with mild comp ression fracture T12. Acute displaced fracture involving the posterior right fourth rib axial image 18 and coronal image 80 and posterior lateral right sixth rib axial image 28. OTHER: No significant additional abnormality is seen. IMPRESSION: Acute displaced fracture posterior right fourth rib and minimally displaced posterolatera l right sixth rib. No definitive displaced right-sided fifth rib fracture. No pneumothorax noted. Lo w lung volumes redemonstrated with bibasilar chronic consolidation and/or atelectatic change again se en. No posttraumatic findings in the abdomen or pelvis.
--- NOTE | 2020-06-28 13:30 | CT ---
EXAMINATION TYPE: CT brain cspine wo con DATE OF EXAM: 06/28/2020 COMPARISON: Previous exam 09/03/2019 HISTORY: Fall yesterday with Right sided injury. CT DLP: 2563.6 mGycm Automated exposure control for dose reduction was used. TECHNIQUE: CT scan of the head and cervical spine are performed without contrast. FINDINGS: There is no acute intracranial hemorrhage, mass effect, or midline shift identified. The ventricles and sulci are within normal limits in size. The globes are intact and the visualized sin uses are remarkable for some mucosal disease in the axillary sinus on the right. Cervical spine is visualized in its entirety from C1 through upper thoracic levels and demonstrates s table alignment without evidence of acute fracture or dislocation. Prevertebral soft tissue appears within normal limits. The C1-C2 articulation is unremarkable. IMPRESSION: 1. There is no acute fracture or dislocation evident in the cervical spine. 2. No acute intracranial hemorrhage, mass effect, or midline shift is seen.
[2020-06-28 14:57] VITALS: BP 113/72; PULSE 72; TEMP 98
== END 2020-06-28 12:50 | disposition home or self-care (01) ==
LOC: EC 10:38
DX: S22.41XA Multiple fractures of ribs, right side, initial encounter for closed fracture (principal); S09.90XA Unspecified injury of head, initial encounter; J44.9 Chronic obstructive pulmonary disease, unspecified; K21.9 Gastro-esophageal reflux disease without esophagitis; E78.5 Hyperlipidemia, unspecified; G47.30 Sleep apnea, unspecified; E07.9 Disorder of thyroid, unspecified; Z79.51 Long term (current) use of inhaled steroids; Z79.890 Hormone replacement therapy; Z79.899 Other long term (current) drug therapy; Z88.6 Allergy status to analgesic agent; Z91.030 Bee allergy status; Z88.1 Allergy status to other antibiotic agents; Z91.041 Radiographic dye allergy status; Z91.048 Other nonmedicinal substance allergy status; Z88.8 Allergy status to other drugs, medicaments and biological substances; Z88.0 Allergy status to penicillin; Z91.013 Allergy to seafood; Z99.89 Dependence on other enabling machines and devices; Z96.652 Presence of left artificial knee joint; Z85.828 Personal history of other malignant neoplasm of skin; W01.198A Fall on same level from slipping, tripping and stumbling with subsequent striking against other object, initial encounter
CPT/HCPCS: 36415; 80053; 85025; 85610; 85730; 72170; 71045; 72125; 70450; 71260; 74177; 99284; 96374; 96375 ×2; 96361; 96372; J2270; J1200; J2930; Q9967

== ENCOUNTER 2020-08-04 11:37 | Emergency (ER) | payer BC ==
[2020-08-04 11:45] VITALS: RESP 18; TEMP 98.2
[2020-08-04] MEDS ORDERED: HYDROcodone/APAP 5-325MG 1 EACH TAB PO STA (12:11)
--- NOTE | 2020-08-04 12:14 | ED ---
Back Pain HPI - General Chief Complaint: Back Pain/Injury Stated Complaint: BACK PAIN Time Seen by Provider: 08/04/20 12:01 Source: patient, RN notes reviewed Limitations: no limitations - History of Present Illness Initial Comments: This a 65-year-old female presents emergency Department with chief complaint of low back pain. Patient states has been bothersome over the last few days. Patient denies any injury. Patient states she had rib fractures from previous fall but states that she not had this low back pain. She has any bowel, bladder incontinence or retention or saddle anesthesias or lower shunted paresthesias. She has no pain that radiates down into her legs. She has no abdominal complaints. She states is all localized to back it is better at rest worse with movement. She has been taken Robaxin and tramadol which has helped some. She has no dysuria no hematuria - Related Data Home Medications Medication Instructions Recorded Confirmed Albuterol Nebulized [Ventolin 2.5 mg INHALATION RT-Q4H PRN 06/28/20 06/28/20 Nebulized] Alendronate Sodium [Fosamax] 70 mg PO TU 06/28/20 06/28/20 Baclofen 10 mg PO QID PRN 06/28/20 06/28/20 Budesonide/Formoterol Fumarate 2 puff INHALATION RT-BID 06/28/20 06/28/20 [Symbicort 160-4.5 Mcg Inhaler] Buprenorphine HCl [Belbuca] 300 mcg BC BID 06/28/20 06/28/20 DULoxetine HCL [Cymbalta] 30 mg PO DAILY 06/28/20 06/28/20 Gabapentin [Neurontin] 300 mg PO TID 06/28/20 06/28/20 Levothyroxine Sodium [Tirosint-Carly] 200 mcg SL DAILY 06/28/20 06/28/20 Lovastatin [Mevacor] 20 mg PO DAILY 06/28/20 06/28/20 Meclizine [Antivert] 25 mg PO TID PRN 06/28/20 06/28/20 Mirtazapine [Remeron] 30 mg PO HS 06/28/20 06/28/20 Montelukast [Singulair] 10 mg PO DAILY 06/28/20 06/28/20 Rosuvastatin [Crestor] 10 mg PO HS 06/28/20 06/28/20 Sulfamethox-Tmp 800-160Mg [Bactrim 1 tab PO MOWEFR 06/28/20 06/28/20 DS 800-160 mg] Topiramate [Topamax] 100 mg PO BID 06/28/20 06/28/20 predniSONE 5 mg PO DAILY 06/28/20 06/28/20 rOPINIRole HCL [Requip] 1 mg PO BID 06/28/20 06/28/20 traMADol HCl [Ultram] 50 mg PO TID PRN 06/28/20 06/28/20 Previous Rx's Medication Instructions Recorded Hydrocodone/Acetaminophen [Bells 1 tab PO Q6HR PRN #12 tab 06/28/20 5-325] Allergies Allergy/AdvReac Type Severity Reaction Status Date / Time aspirin Allergy Rash/Hives Verified 08/04/20 11:45 bee pollen Allergy Anaphylaxis Verified 08/04/20 11:45 cefdinir [From Omnicef] Allergy Anaphylaxis Verified 08/04/20 11:45 clarithromycin [From Biaxin] Allergy Anaphylaxis Verified 08/04/20 11:45 ibuprofen [From Advil] Allergy Anaphylaxis Verified 08/04/20 11:45 Iodinated Contrast Media Allergy SWELLING Verified 08/04/20 11:45 [Iodinated Contrast Media - OF THROAT IV Dye] iodine Allergy Anaphylaxis Verified 08/04/20 11:45 omalizumab [From Xolair] Allergy Anaphylaxis Verified 08/04/20 11:45 prochlorperazine edisylate Allergy Rash/Hives Verified 08/04/20 11:45 [From Compazine] prochlorperazine maleate Allergy Rash/Hives Verified 08/04/20 11:45 [From Compazine] shellfish derived Allergy Anaphylaxis Verified 08/04/20 11:45 Penicillins AdvReac Dyspnea Verified 08/04/20 11:45 Review of Systems ROS Statement: Those systems with pertinent positive or pertinent negative responses have been documented in the HPI. ROS Other: All systems not noted in ROS Statement are negative. 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, adrenal insufficiency, hiatal hernia, basal cell carcinoma of the skin, uses cane , uses oxygen continous at 3L, irregular bowel movements, hx endocarditis,osteoporosis, hx fx spine agammaglobulinemia History of Any Multi-Drug Resistant Organisms: None Reported Past Surgical History: Adenoidectomy, Appendectomy, Back Surgery, Breast Surgery, Cholecystectomy, Hysterectomy, Joint Replacement, Tonsillectomy Additional Past Surgical History / Comment(s): left knee replacement, left knee arthroscopy, breast biopsy-rt, mino breast reduction, hemorrhoidectomy, back surgery fusion with additional surgery X1, Past Anesthesia/Blood Transfusion Reactions: Family History of Problems w/ Anesthesia, Motion Sickness Additional Past Anesthesia/Blood Transfusion Reaction / Comment(s): "brother was awake during whole surgery" Past Psychological History: No Psychological Hx Reported Smoking Status: Never smoker Past Alcohol Use History: None Reported Past Drug Use History: None Reported - Past Family History Mother Family Medical History: Cancer Father Family Medical History: Cancer General Exam Limitations: no limitations General appearance: alert, in no apparent distress Head exam: Present: atraumatic, normocephalic, normal inspection Eye exam: Present: normal appearance, PERRL, EOMI. Absent: scleral icterus, conjunctival injection, periorbital swelling ENT exam: Present: normal exam, normal oropharynx, mucous membranes moist Neck exam: Present: normal inspection, full ROM. Absent: tenderness, meningismus, lymphadenopathy Respiratory exam: Present: normal lung sounds bilaterally, chest wall tenderness (Right-sided rib). Absent: respiratory distress, wheezes, rales, rhonchi, stridor Cardiovascular Exam: Present: regular rate, normal rhythm, normal heart sounds. Absent: systolic murmur, diastolic murmur, rubs, gallop, clicks GI/Abdominal exam: Present: soft, normal bowel sounds. Absent: distended, tenderness, guarding, rebound, rigid Extremities exam: Present: normal inspection, full ROM, normal capillary refill, other (Lower extremity pulses equal bilaterally equal color and equal warmth). Absent: tenderness, pedal edema, joint swelling, calf tenderness Back exam: Present: full ROM (Pain with range of motion), tenderness (Lower lumbar right paraspinal), paraspinal tenderness. Absent: normal inspection (Lidocaine patch over the right ribs), CVA tenderness (R), CVA tenderness (L), vertebral tenderness Neurological exam: Present: alert, oriented X3, CN II-XII intact, reflexes normal. Absent: motor sensory deficit Skin exam: Present: warm, dry, intact, normal color. Absent: rash Course Vital Signs 08/04/20 11:40 Temperature 98.2 F Pulse Rate 73 Respiratory 18 Rate Blood Pressure 141/89 O2 Sat by Pulse 100 Oximetry Medical Decision Making - Medical Decision Making Imaging was reviewed including x-rays and CT CT shows evidence of healing inferior and superior pubic rami fracture. Patient is able to ambulate. Patient will follow-up with orthopedics return parameters were discussed. Disposition Clinical Impression: Closed fracture of right inferior pubic ramus, Fracture of right superior pubic ramus Disposition: HOME SELF-CARE Condition: Stable Instructions (If sedation given, give patient instructions): Pelvic Fracture (ED) Additional Instructions: Please return to the Emergency Department if symptoms worsen or any other concerns. Is patient prescribed a controlled substance at d/c from ED?: No Referrals: Maikel Johnson MD [Primary Care Provider] - 1-2 days Naresh Streeter DO [Doctor of Osteopathic Medicine] - 1-2 days Time of Disposition: 14:00
--- NOTE | 2020-08-04 12:43 | XR ---
EXAM TYPE: LUMBAR SPINE X RAY SERIES COMPARISON: NONE HISTORY: Pain TECHNIQUE: 4 views are submitted. FINDINGS: There is evidence of vertebroplasty T12 and postsurgical change at the lumbosacral junction with diff use osteopenia. There are no compression deformities. There is degenerative change of the lower lumba r spine. Surgical clips in the right upper quadrant. Stable grade 1 anterolisthesis L4 on L5. IMPRESSION: 1. Chronic compression deformities of vertebroplasty at T12. 2. Multilevel degenerative change with postsurgical changes L5-S1. Stable grade 1 anterolisthesis L4 and L5.
--- NOTE | 2020-08-04 12:44 | XR ---
EXAMINATION TYPE: XR pelvis AP view DATE OF EXAM: 08/04/2020 COMPARISON: NONE HISTORY: Pain The osseous structures are intact and the joint spaces are preserved. Slight irregularity involving t he right inferior pubic ramus.. Visualized bowel gas pattern is nonspecific. Postsurgical change lo wer lumbar spine. Calcifications in the pelvis likely vascular. Diffuse osteopenia. Mild arthropathy of the hips. Calcifications left paraspinal line are nonspecific. IMPRESSION: 1. Arthropathy of the hips with diffuse osteopenia. Slight irregularity along the right inferior pubi c ramus. If point tender correlate with CT scan.
--- NOTE | 2020-08-04 13:54 | CT ---
EXAMINATION TYPE: CT pelvis wo con DATE OF EXAM: 08/04/2020 COMPARISON: 06/28/2020 HISTORY: lumbar/pelvic pain CT DLP: 302 mGycm Automated exposure control for dose reduction was used. Images were obtained from the iliac crests to the subtrochanteric femurs without contrast. There is multilevel posterior fusion surgery in the lower lumbar spine. There is intact sacroiliac jr ints. There is no free fluid in the pelvis. Bladder distends smoothly. There are numerous phleboliths in the pelvis. There is no inguinal hernia. There is hysterectomy. There is no evidence of a pelvic mass. There is a mild L4-5 first degree spondylolisthesis. There is narrowing of L5-S1 disc space. Th e proximal femurs and hip joints are intact. There is comminuted fracture of the right superior pubic ramus. There is nondisplaced fracture right inferior pubic ramus. There is bridging callus formation at the fracture sites. IMPRESSION: Healing nondisplaced fractures of the right superior and inferior pubic rami.
[2020-08-04] MEDS ORDERED: ACET/COD 300 MG/30 MG STARTER PACK 6 TAB BTL PO STA (14:01)
[2020-08-04 14:17] VITALS: BP 129/77; PULSE 76
== END 2020-08-04 14:35 | disposition home or self-care (01) ==
LOC: EC 11:37
DX: S32.591A Other specified fracture of right pubis, initial encounter for closed fracture (principal); S32.511A Fracture of superior rim of right pubis, initial encounter for closed fracture; J44.9 Chronic obstructive pulmonary disease, unspecified; G47.30 Sleep apnea, unspecified; E07.9 Disorder of thyroid, unspecified; M81.0 Age-related osteoporosis without current pathological fracture; E78.5 Hyperlipidemia, unspecified; Z79.52 Long term (current) use of systemic steroids; Z79.890 Hormone replacement therapy; Z79.83 Long term (current) use of bisphosphonates; Z79.51 Long term (current) use of inhaled steroids; Z79.899 Other long term (current) drug therapy; Z88.6 Allergy status to analgesic agent; Z91.030 Bee allergy status; Z88.1 Allergy status to other antibiotic agents; Z91.048 Other nonmedicinal substance allergy status; Z88.8 Allergy status to other drugs, medicaments and biological substances; Z91.041 Radiographic dye allergy status; Z88.0 Allergy status to penicillin; Z91.013 Allergy to seafood; Z85.828 Personal history of other malignant neoplasm of skin; Z96.652 Presence of left artificial knee joint; Z99.89 Dependence on other enabling machines and devices; X58.XXXA Exposure to other specified factors, initial encounter
CPT/HCPCS: 72110; 72170; 72192; 99284

== ENCOUNTER → 2020-08-24 | Outpatient (CLI) | payer MEDICARE ==
--- NOTE | 2020-08-24 10:23 | CT ---
EXAMINATION TYPE: CT chest wo con DATE OF EXAM: 08/24/2020 COMPARISON: Chest CT June 28, 2020 and older study 2011 HISTORY: mass chest wall posterior rt side/recent fractured ribs from a fall CT DLP: 280.7 mGycm. Automated Exposure Control for Dose Reduction was Utilized. TECHNIQUE: CT scan of the thorax is performed without IV contrast. FINDINGS: LUNGS: There is low lung volumes with elevated left hemidiaphragm redemonstrated. Moderate Bibasilar chronic consolidation and/or atelectasis is redemonstrated. Upper lungs remain clear without pneumoth orax. Trace right-sided pleural fluid collection inferiorly. MEDIASTINUM: Lack of IV contrast is noted to limit evaluation for mediastinal and especially hilar ad enopathy. There are no definitive greater than 1 cm hilar or mediastinal lymph nodes. No cardiomega ly or pericardial effusion is seen. Ectatic ascending aorta up to 3.7 cm stable. OTHER: Focal new moderate subcutaneous edema and soft tissue swelling over the lateral right lower th orax and upper to mid abdomen axial image 60 for reference. Along superior aspect of this there is ov al hyperdense deep mass presumed deep hematoma just peripheral to the ribs measuring 15 cm long axis craniocaudal image 59 by approximately 7.7 x 5.2 cm axial image 48. There is additional smaller hemat esperanza near the right scapula upper to mid thorax now identified on axial image 21 measuring approximate ly 7 cm long axis. Subacute or healing fracture involving the right posterior fourth and sixth ribs axial image 23 and 2 7 there is now identified. There are also subacute healing mildly displaced fractures involving poste rior right third and fifth ribs on images 12 and 22, 7 and 8 ribs on images 31 and 37 respectively. A cute displaced fractures at these levels not clearly seen on prior CT even in retrospect. There are additional healing nondisplaced fractures involving the right anterior third through sixth ribs on current study. Vertebral plasty at T12 level is redemonstrated at the site of mild height loss extending into adjace nt T12-L1 disc space similar to prior. Cholecystectomy clips redemonstrated. IMPRESSION: I suspect patient had subsequent fall injury or trauma after June 28, 2020 with modera te to large size right deep thoracic hematomas with local mass effect and surrounding subcutaneous ed lacey extending inferiorly. There are no healing fractures of the posterior right third through eighth ribs and healing fractures of the right anterior third through sixth ribs. Patient has background low lung volumes and elevated left hemidiaphragm redemonstrated unchanged from 2012 study. No new focal infiltrate noted.
== END | disposition home or self-care (01) ==
LOC: RADCTMAIN 08:16
PROVIDERS: ATTEND Family Medicine
DX: R22.2 Localized swelling, mass and lump, trunk (principal)
CPT/HCPCS: 71250

== ENCOUNTER 2020-09-05 13:30 | Observation (INO) | payer MEDICARE ==
[2020-09-05] MEDS ORDERED: RX INFO: IV CONTRAST WAS GIVEN 1 EACH MISC MISCELLANE PRN (14:27)
[2020-09-05] MEDS ORDERED: FAMOTIDINE 20 MG/2 ML VIAL IV STA (14:28)
[2020-09-05] MEDS ORDERED: methylPREDNISolone SOD SUCCI 125 MG/2 ML VIAL IV STA (14:28)
[2020-09-05] MEDS ORDERED: diphenhydrAMINE 50 MG/ML 1 ML VIAL IVP STA (14:28)
--- NOTE | 2020-09-05 14:31 | ED ---
General Adult HPI - General Chief complaint: Skin/Abscess/Foreign Body Stated complaint: hematoma on back Time Seen by Provider: 09/05/20 14:02 Source: patient Mode of arrival: wheelchair Limitations: physical limitation - History of Present Illness Initial comments: 65-year-old female presents to the emergency room for a chief complaint of mass to the right side of the back. Patient reports that in June she had a fall and fractured a couple ribs. States that a few weeks ago she noticed a mass on her right upper back. States it has been growing in size. Patient had seen her primary care provider and a CT of the chest without contrast was ordered. This showed a moderate to large size right deep thoracic hematomas with local mass effect and surrounding subcutaneous edema extending inferiorly. Patient reports she saw Dr. Mak vascular surgeon who reported that the mass on her back was likely a hematoma that needed to be drained. Recommended she come to the emergency room to be admitted and see cardiothoracic surgery. Her primary care provider Dr. Johnson did agree. - Related Data Home Medications Medication Instructions Recorded Confirmed Albuterol Nebulized [Ventolin 2.5 mg INHALATION RT-Q4H PRN 06/28/20 09/05/20 Nebulized] Alendronate Sodium [Fosamax] 70 mg PO WE 06/28/20 09/05/20 Baclofen 10 mg PO QID PRN 06/28/20 09/05/20 Budesonide/Formoterol Fumarate 2 puff INHALATION RT-BID 06/28/20 09/05/20 [Symbicort 160-4.5 Mcg Inhaler] Buprenorphine HCl [Belbuca] 300 mcg BC BID 06/28/20 09/05/20 Gabapentin [Neurontin] 300 mg PO TID 06/28/20 09/05/20 Levothyroxine Sodium [Tirosint-Carly] 200 mcg SL DAILY 06/28/20 09/05/20 Meclizine [Antivert] 25 mg PO TID PRN 06/28/20 09/05/20 Mirtazapine [Remeron] 30 mg PO HS 06/28/20 09/05/20 Montelukast [Singulair] 10 mg PO HS 06/28/20 09/05/20 Rosuvastatin [Crestor] 10 mg PO HS 06/28/20 09/05/20 Sulfamethox-Tmp 800-160Mg [Bactrim 1 tab PO MOWEFR 06/28/20 09/05/20 DS 800-160 mg] Topiramate [Topamax] 100 mg PO BID 06/28/20 09/05/20 predniSONE 5 mg PO DAILY 06/28/20 09/05/20 rOPINIRole HCL [Requip] 2 mg PO HS 06/28/20 09/05/20 traMADol HCl [Ultram] 50 mg PO TID PRN 06/28/20 09/05/20 Benzonatate [Tessalon Perles] 200 mg PO TID PRN 09/05/20 09/05/20 Levothyroxine Sodium [Tirosint-Carly] 100 mcg SL DAILY 09/05/20 09/05/20 Ondansetron Odt [Zofran Odt] 8 mg PO Q8HR PRN 09/05/20 09/05/20 Primidone [Mysoline] 25 mg PO TID 09/05/20 09/05/20 Allergies Allergy/AdvReac Type Severity Reaction Status Date / Time aspirin Allergy Rash/Hives Verified 09/05/20 16:16 bee pollen Allergy Anaphylaxis Verified 09/05/20 16:16 cefdinir [From Omnicef] Allergy Anaphylaxis Verified 09/05/20 16:16 clarithromycin [From Biaxin] Allergy Anaphylaxis Verified 09/05/20 16:16 ibuprofen [From Advil] Allergy Anaphylaxis Verified 09/05/20 16:16 Iodinated Contrast Media Allergy SWELLING Verified 09/05/20 16:16 [Iodinated Contrast Media - OF THROAT IV Dye] iodine Allergy Anaphylaxis Verified 09/05/20 16:16 omalizumab [From Xolair] Allergy Anaphylaxis Verified 09/05/20 16:16 prochlorperazine edisylate Allergy Rash/Hives Verified 09/05/20 16:16 [From Compazine] prochlorperazine maleate Allergy Rash/Hives Verified 09/05/20 16:16 [From Compazine] shellfish derived Allergy Anaphylaxis Verified 09/05/20 16:16 Penicillins AdvReac Dyspnea Verified 09/05/20 16:16 Review of Systems ROS Statement: Those systems with pertinent positive or pertinent negative responses have been documented in the HPI. ROS Other: All systems not noted in ROS Statement are negative. 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, adrenal insufficiency, hiatal hernia, basal cell carcinoma of the skin, uses cane , uses oxygen continous at 3L, irregular bowel movements, hx endocarditis,osteoporosis, hx fx spine agammaglobulinemia History of Any Multi-Drug Resistant Organisms: None Reported Past Surgical History: Adenoidectomy, Appendectomy, Back Surgery, Breast Surgery, Cholecystectomy, Hysterectomy, Joint Replacement, Tonsillectomy Additional Past Surgical History / Comment(s): left knee replacement, left knee arthroscopy, breast biopsy-rt, mino breast reduction, hemorrhoidectomy, back surgery fusion with additional surgery X1, Past Anesthesia/Blood Transfusion Reactions: Family History of Problems w/ Anesthesia, Motion Sickness Additional Past Anesthesia/Blood Transfusion Reaction / Comment(s): "brother was awake during whole surgery" Past Psychological History: No Psychological Hx Reported Smoking Status: Never smoker Past Alcohol Use History: None Reported Past Drug Use History: None Reported - Past Family History Mother Family Medical History: Cancer Father Family Medical History: Cancer General Exam Limitations: physical limitation General appearance: alert Head exam: Present: atraumatic Eye exam: Present: normal appearance, PERRL, EOMI ENT exam: Present: normal exam, mucous membranes moist Neck exam: Present: normal inspection, full ROM. Absent: tenderness, meningismus Respiratory exam: Present: normal lung sounds bilaterally. Absent: respiratory distress, wheezes Cardiovascular Exam: Present: regular rate, normal rhythm, normal heart sounds GI/Abdominal exam: Present: soft, normal bowel sounds. Absent: distended, tenderness, guarding, rebound, rigid Back exam: Present: other (Patient has a large soft tissue mass near the right upper back below her scapula. There is no ecchymosis Around to the area. No significant tenderness.) Course Vital Signs 09/05/20 13:33 Temperature 98.7 F Pulse Rate 73 Respiratory 20 Rate Blood Pressure 158/82 O2 Sat by Pulse 96 Oximetry Medical Decision Making - Medical Decision Making Vitals are stable. Hemoglobin 10.9 just slightly lower than previous hemoglobin. CMP unremarkable. Chest CT with contrast was performed which did r eveal a probable hematoma measuring 6.9 x 4.3 x 22 cm.Patient's primary care and vascular surgeon did want her admitted, recommended consult in cardiothoracic surgery. Case was discussed with Dr. Castro who accepts the admission. Cardiothoracic surgery was consulted. Andrew Ohara did Examination patient in the ER. - Lab Data Result diagrams: 09/05/20 14:40 09/05/20 14:40 Lab Results 09/05/20 09/05/20 09/05/20 Range/Units 14:40 14:40 14:40 WBC 11.6 H (3.8-10.6) k/uL RBC 3.50 L (3.80-5.40) m/uL Hgb 10.9 L (11.4-16.0) gm/dL Hct 34.1 (34.0-46.0) % MCV 97.4 (80.0-100.0) fL MCH 31.0 (25.0-35.0) pg MCHC 31.9 (31.0-37.0) g/dL RDW 16.6 H (11.5-15.5) % Plt Count 186 (150-450) k/uL MPV 8.4 Neutrophils % 71 % Lymphocytes % 13 % Monocytes % 10 % Eosinophils % 3 % Basophils % 1 % Neutrophils # 8.2 H (1.3-7.7) k/uL Lymphocytes # 1.5 (1.0-4.8) k/uL Monocytes # 1.2 H (0-1.0) k/uL Eosinophils # 0.3 (0-0.7) k/uL Basophils # 0.1 (0-0.2) k/uL Anisocytosis Slight PT 10.4 (9.0-12.0) sec INR 1.0 (<1.2) APTT 22.1 (22.0-30.0) sec Sodium 139 (137-145) mmol/L Potassium 4.9 (3.5-5.1) mmol/L Chloride 101 (98-107) mmol/L Carbon Dioxide 33 H (22-30) mmol/L Anion Gap 5 mmol/L BUN 26 H (7-17) mg/dL Creatinine 0.93 (0.52-1.04) mg/dL Est GFR (CKD-EPI)AfAm 75 (>60 ml/min/1.73 sqM) Est GFR (CKD-EPI)NonAf 65 (>60 ml/min/1.73 sqM) Glucose 88 (74-99) mg/dL Calcium 8.8 (8.4-10.2) mg/dL Total Bilirubin 0.4 (0.2-1.3) mg/dL AST 38 H (14-36) U/L ALT 23 (4-34) U/L Alkaline Phosphatase 119 (38-126) U/L Total Protein 7.5 (6.3-8.2) g/dL Albumin 4.3 (3.5-5.0) g/dL Disposition Clinical Impression: Hematoma Disposition: ADMITTED IP TO THIS HOSP Is patient prescribed a controlled substance at d/c from ED?: No Referrals: Maikel Johnson MD [Primary Care Provider] - 1-2 days Time of Disposition: 16:52
[2020-09-05 14:49] LABS: Anisocytosis Slight; Basophils # (A) 0.1 k/uL (0-0.2); Basophils % (A) 1 %; Eosinophils # (A) 0.3 k/uL (0-0.7); Eosinophils % (A) 3 %; HCT 34.1 % (34.0-46.0); HGB 10.9 gm/dL (11.4-16.0); Lymphocytes # (A) 1.5 k/uL (1.0-4.8); Lymphocytes % (A) 13 %; MCHC 31.9 g/dL (31.0-37.0); MCV 97.4 fL (80.0-100.0); Mean Platelet Volume 8.4; Monocytes # (A) 1.2 k/uL (0-1.0); Monocytes % (A) 10 %; Neutrophils # (A) 8.2 k/uL (1.3-7.7); Neutrophils % (A) 71 %; Platelet Count 186 k/uL (150-450); RDW 16.6 % (11.5-15.5); WBC 11.6 k/uL (3.8-10.6)
[2020-09-05 14:57] LABS: Partial Thromboplastin Time 22.1 sec (22.0-30.0); Prothrombin Time 10.4 sec (9.0-12.0)
[2020-09-05 15:00] LABS: Albumin 4.3 g/dL (3.5-5.0); Calcium 8.8 mg/dL (8.4-10.2); Potassium 4.9 mmol/L (3.5-5.1); Total Bilirubin 0.4 mg/dL (0.2-1.3); Total Protein 7.5 g/dL (6.3-8.2)
[2020-09-05] MEDS ORDERED: SODIUM CHLORIDE 0.9% 500 ML 500 ML IV STA (15:01)
--- NOTE | 2020-09-05 15:53 | CT ---
EXAMINATION TYPE: CT chest w con DATE OF EXAM: 09/05/2020 COMPARISON: CT chest 08/24/2020 HISTORY: right posterior chest mass CT DLP: 275.8 mGycm Automated exposure control for dose reduction was used. CONTRAST: CT scan of the chest is performed with IV Contrast, patient injected with 100 mL of Isovue 300. FINDINGS: LUNGS: There is basilar atelectasis, elevation of the bilateral hemidiaphragms as noted on prior exam .. Bandlike areas of increased attenuation likely represent atelectasis within the posterior lungs MEDIASTINUM: There are no greater than 1 cm hilar or mediastinal lymph nodes. No pericardial effusi on is seen. AORTA: Root of the aorta is 4.2 cm. OTHER: Multiple rib fractures are again noted as described in prior report, anterior right second thr ough eighth ribs, posterior right third through eighth ribs. The patient's hematoma is again noted an d measures approximately 6.9 x 4.3 x 22 cm is present over the posterior lateral right chest similar to prior exam. Vertebral plasty changes again noted the lower thoracic spine level. Liver is enlarged . Low lung volumes persists. IMPRESSION: Findings are similar to prior exam. Probable hematomas associated with patient's prior trauma. Additional findings above.
[2020-09-05] MEDS ORDERED: NALOXONE 0.4 MG/ML 1 ML VIAL IV PRN (16:52)
[2020-09-05] MEDS ORDERED: BENZONATATE 100 MG CAP PO PRN (16:53)
[2020-09-05] MEDS ORDERED: ONDANSETRON ODT 8 MG TAB.RAPDIS PO PRN (16:54)
[2020-09-05] MEDS ORDERED: MECLIZINE 25 MG TAB PO PRN (16:54)
[2020-09-05] MEDS ORDERED: SODIUM CHLORIDE 0.9% 1,000 ML IV SCH (17:00)
[2020-09-05] MEDS ORDERED: NON FORMULARY DRUG (Alendronate Sodium [Fosamax] 70 MG Tablet) PO SCH (17:00)
[2020-09-05] MEDS: BACLOFEN 10 MG TAB PO PRN (19:00)
[2020-09-05] MEDS: traMADol 50 MG TAB PO PRN (19:00)
--- NOTE | 2020-09-05 19:26 | P.HPIM ---
History of Present Illness H&P Date: 09/05/20 Chief Complaint: Mass in the right chest wall History of presenting complaint: This is a 65-year-old patient who follows with Dr. Maikel Johnson. Chronic stable medical conditions include hypothyroid, GERD, hyperlipidemia, bilateral hemidiaphragmatic paralysis, hiatal hernia, agammaglobebemia, chronic hypoxic respiratory failure on home oxygen 5 L, chronic low back pain, essential tremor. Does use a walker , lives with her brother. On 06/28/2020 patient presented to the ER after she took a fall on a newly installed floor hitting the right chest wall. Patient normally uses 5 L of oxygen at home and pulse ox around 80-90%. Computed tomography scan of the chest showed acute displaced fracture posterior right fourth and minimally displaced posterior lateral right sixth rib., And fifth rib fracture. Also was known lower lung volumes tomography demonstrated with a chronic consolidation. On 08/04/2020 patient presented to ER with low back pain. She said it was bothersome over last few days. Pain was localized to the back. Physical exam on that ER visit by Dr. Vigil ER physician shows a lidocaine patch over the right ribs. No mass was described. Patient subsequently currently went to see her family doctor Dr. Johnson. He wanted a computed tomography scan of the chest. This was done on 08/24/2020. This is done without contrast. No moderate subcutaneous edema and soft tissue swelling over the lateral right thorax noted. There was also normal hyperdense deep mass presumed to be deep hematoma just peripheral to the ribs measuring 15 cm in the long axis. Also small hematoma near the right scapula measuring about 7 cm. Multiple subacute healing displaced fracture rubs were noted. Dr. Johnson the family doctor referred the patient to Dr. Anders / vascular surgeon. To be evacuated. He sent the patient down to ER to be further everted by cardiothoracic surgery because of the size of the mass. Computed tomography scan done in the ER today showed fracture through second through eighth ribs with the reported hematoma measuring about 6.9 cm in the caudal axis. Patient is slight discomfort in same. No trouble with her breathing. Review of systems: GEN.: Thyroid decreased appetite fever EYES: None HEENT: None NECK: None RESPIRATORY: Congested chest not able to expectorate CARDIOVASCULAR: None GASTROINTESTINAL: None GENITOURINARY: None MUSCULOSKELETAL: Chronic low back pain LYMPHATICS: None HEMATOLOGICAL: None PSYCHIATRY: None NEUROLOGICAL: Does use a walker Past medical history: Asthma, GERD, hyperlipidemia, obstructive sleep apnea, hypothyroid, chronic bilateral hemidiaphragmatic paralysis, hiatal hernia, basal cell carcinoma, home oxygen 5 L, and hepatitis, osteoporosis, fracture of the spine, agammaglobebemia, essential tremor, fractured ribs Social history: Does not smoke or drink alcohol. Is a , lives with her brother, uses a walker Physical examination: VITAL SIGNS: 98.7, 73, 20, 1 58/82, 96% on 5 L GENERAL: Reclining in bed, awake EYES: Pupils equal. Conjunctiva normal. HEENT: External appearance of nose and ears normal, oral cavity dry mucous membranes NECK: JVD not raised; masses not palpable. HEART: First and second heart sounds are normal; no edema. LUNGS: Respiratory rate increased, diminished breath sounds prolonged expiration. Mass over the right lateral chest wall. Skin over the masses free Moving. Mild tenderness. ABDOMEN: Soft, nontender, liver spleen not palpable, no masses palpable. PSYCH: AO - times three. Mood and affect normal NEUROLOGICAL: Cranial nerves grossly intact; no facial asymmetry, power and sensation grossly intact,. LYMPHATICS: No lymph nodes palpable in the axilla and neck INVESTIGATIONS, reviewed in the clinical context: White count 9.6 hemoglobin 10.9 platelets 186 potassium 4.9 bun [address] chest- fracture through second through eighth ribs with the reported hematoma measuring about 6.9 cm in the caudal axis. Assessment and plan: -This is a patient had a fall on June 28 and that time had fracture fourth through sixth rib. Subsequent visit to the ER on August 04 had more pain in that area with no mass reported. Subsequently patient had a mass that has been growing. Patient was sent by the PCP to vascular surgeon Dr. Anders. We'll send the patient to ER. This is significantly grown in size. The obvious talk to be that of [place] hematoma. Except that the fact it was not noticed on August 04 witnessed the fall had taken place on June 28. My concern if there is a leaking lymphatic duct that is now ballooned into the mass. Cardiothoracic surgery consulted. - moderate persistent asthma, continue bronchodilators -Hypothyroidism., Continue levothyroxin -GERD -Hyperlipidemia, on Crestor -Chronic bilateral hemidiaphragmatic paralysis -Hiatal hernia -Chronic hypoxic respiratory failure on home oxygen 5 L from bilateral feliz- diaphragmatic paralysis -Chronic low back pain, from arthritis, continue pain medications -Restless leg syndrome, continue Requip Past Medical History Past Medical History: Asthma, Cancer, COPD, GERD/Reflux, Hyperlipidemia, Hype rtension, Pneumonia, Sleep Apnea/CPAP/BIPAP, Thyroid Disorder Additional Past Medical History / Comment(s): 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, adrenal insufficiency, hiatal hernia, basal cell carcinoma of the skin, uses cane , uses oxygen continous at 3L, irregular bowel movements, hx endocarditis,osteoporosis, hx fx spine agammaglobulinemia History of Any Multi-Drug Resistant Organisms: None Reported Past Surgical History: Adenoidectomy, Appendectomy, Back Surgery, Breast Surgery, Cholecystectomy, Hysterectomy, Joint Replacement, Tonsillectomy Additional Past Surgical History / Comment(s): left knee replacement, left knee arthroscopy, breast biopsy-rt, mino breast reduction, hemorrhoidectomy, back surgery fusion with additional surgery X1, Past Anesthesia/Blood Transfusion Reactions: Family History of Problems w/ Anesthesia, Motion Sickness Additional Past Anesthesia/Blood Transfusion Reaction / Comment(s): "brother was awake during whole surgery" Past Psychological History: No Psychological Hx Reported Smoking Status: Never smoker Past Alcohol Use History: None Reported Past Drug Use History: None Reported - Past Family History Mother Family Medical History: Cancer (Breast) Father Family Medical History: Coronary Artery Disease (CAD) Medications and Allergies Home Medications Medication Instructions Recorded Confirmed Type Albuterol Nebulized [Ventolin 2.5 mg INHALATION RT-Q4H PRN 06/28/20 09/05/20 History Nebulized] Alendronate Sodium [Fosamax] 70 mg PO WE 06/28/20 09/05/20 History Baclofen 10 mg PO QID PRN 06/28/20 09/05/20 History Budesonide/Formoterol Fumarate 2 puff INHALATION RT-BID 06/28/20 09/05/20 History [Symbicort 160-4.5 Mcg Inhaler] Buprenorphine HCl [Belbuca] 300 mcg BC BID 06/28/20 09/05/20 History Gabapentin [Neurontin] 300 mg PO TID 06/28/20 09/05/20 History Levothyroxine Sodium [Tirosint-Carly] 200 mcg SL DAILY 06/28/20 09/05/20 History Meclizine [Antivert] 25 mg PO TID PRN 06/28/20 09/05/20 History Mirtazapine [Remeron] 30 mg PO HS 06/28/20 09/05/20 History Montelukast [Singulair] 10 mg PO HS 06/28/20 09/05/20 History Rosuvastatin [Crestor] 10 mg PO HS 06/28/20 09/05/20 History Sulfamethox-Tmp 800-160Mg [Bactrim 1 tab PO MOWEFR 06/28/20 09/05/20 History DS 800-160 mg] Topiramate [Topamax] 100 mg PO BID 06/28/20 09/05/20 History predniSONE 5 mg PO DAILY 06/28/20 09/05/20 History rOPINIRole HCL [Requip] 2 mg PO HS 06/28/20 09/05/20 History traMADol HCl [Ultram] 50 mg PO TID PRN 06/28/20 09/05/20 History Benzonatate [Tessalon Perles] 200 mg PO TID PRN 09/05/20 09/05/20 History Levothyroxine Sodium [Tirosint-Carly] 100 mcg SL DAILY 09/05/20 09/05/20 History Ondansetron Odt [Zofran Odt] 8 mg PO Q8HR PRN 09/05/20 09/05/20 History Primidone [Mysoline] 25 mg PO TID 09/05/20 09/05/20 History Allergies Allergy/AdvReac Type Severity Reaction Status Date / Time aspirin Allergy Rash/Hives Verified 09/05/20 16:16 bee pollen Allergy Anaphylaxis Verified 09/05/20 16:16 cefdinir [From Omnicef] Allergy Anaphylaxis Verified 09/05/20 16:16 clarithromycin [From Biaxin] Allergy Anaphylaxis Verified 09/05/20 16:16 ibuprofen [From Advil] Allergy Anaphylaxis Verified 09/05/20 16:16 Iodinated Contrast Media Allergy SWELLING Verified 09/05/20 16:16 [Iodinated Contrast Media - OF THROAT IV Dye] iodine Allergy Anaphylaxis Verified 09/05/20 16:16 omalizumab [From Xolair] Allergy Anaphylaxis Verified 09/05/20 16:16 prochlorperazine edisylate Allergy Rash/Hives Verified 09/05/20 16:16 [From Compazine] prochlorperazine maleate Allergy Rash/Hives Verified 09/05/20 16:16 [From Compazine] shellfish derived Allergy Anaphylaxis Verified 09/05/20 16:16 Penicillins AdvReac Dyspnea Verified 09/05/20 16:16 Physical Exam Vitals: Vital Signs Temp Pulse Resp BP Pulse Ox 09/05/20 18:16 70 18 139/78 98 09/05/20 13:33 98.7 F 73 20 158/82 96 Intake and Output 09/05/20 09/05/20 09/05/20 06:59 14:59 22:59 Other: Weight 63.957 kg Results CBC & Chem 7: 09/05/20 14:40 09/05/20 14:40 Labs: Abnormal Lab Results - Last 24 Hours (Table) 09/05/20 09/05/20 Range/Units 14:40 14:40 WBC 11.6 H (3.8-10.6) k/uL RBC 3.50 L (3.80-5.40) m/uL Hgb 10.9 L (11.4-16.0) gm/dL RDW 16.6 H (11.5-15.5) % Neutrophils # 8.2 H (1.3-7.7) k/uL Monocytes # 1.2 H (0-1.0) k/uL Carbon Dioxide 33 H (22-30) mmol/L BUN 26 H (7-17) mg/dL AST 38 H (14-36) U/L
[2020-09-05] MEDS: GABAPENTIN 100 MG CAP PO SCH (20:45)
[2020-09-05] MEDS: TOPIRAMATE 100 MG TAB PO SCH (20:45)
[2020-09-05] MEDS: PRIMIDONE 50 MG TAB PO SCH ×2 (20:49→20:55)
[2020-09-05] MEDS ORDERED: MIRTAZAPINE 15 MG TAB PO SCH (21:00)
[2020-09-05] MEDS ORDERED: ATORVASTATIN 20 MG TAB PO SCH (21:00)
[2020-09-05] MEDS ORDERED: MONTELUKAST 10 MG TAB PO SCH (21:00)
[2020-09-05] MEDS ORDERED: SULFAMETHOX-TMP 800-160MG 1 EACH TAB PO SCH (21:00)
[2020-09-05] MEDS: SYMBICORT 160-4.5 MCG INHALER INHALATION SCH (22:25)
[2020-09-06 00:38] VITALS: TEMP 97.6
[2020-09-06] MEDS: BACLOFEN 10 MG TAB PO PRN (01:04)
[2020-09-06] MEDS ORDERED: LEVOTHYROXINE 100 MCG TAB PO SCH ×2 (06:30)
[2020-09-06] MEDS: traMADol 50 MG TAB PO PRN (06:35)
[2020-09-06] MEDS: SYMBICORT 160-4.5 MCG INHALER INHALATION SCH (07:43)
[2020-09-06] MEDS: ALBUTEROL NEBULIZED 2.5 MG/3 ML INHALATION PRN ×3 (07:43→15:14)
--- NOTE | 2020-09-06 07:52 | P.GSCN ---
History of Present Illness Consult date: 09/05/20 Reason for Consult: Hematoma posterior lateral right chest. Requesting physician: Evin Fletcher History of present illness: This is a 65-year-old female patient who is followed by Dr. Maikel Johnson on an outpatient basis. 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 The patient reports that around 2-3 weeks ago she noticed a mass developing to her right back near her right shoulder blade. She denies any pain to the mass to her right back. She denies any recent fever, chills, pain, nausea, vomiting, constipation, diarrhea or dizziness. The patient did report that she was seen by a vascular surgeon Dr Mia Anders who told her that the hematoma likely need to be drained. The patient underwent a computed tomography scan of her chest with contrast which demonstrated multiple rib fractures to her anterior right second through eighth ribs, posterior right third through eighth ribs, a hematoma that measures approximately 6.9-4.3 x 22 centimeters over the posterior lateral right chest which they report states is similar to her prior exam. Due to the patient's computed tomography scan findings a consult was placed to Dr. Dionisio Coley from cardiothoracic surgery for further evaluation and treatment recommendations. Review of Systems A 14 point review of systems was completed was negative except as mentioned in HPI. Past Medical History Past Medical History: Asthma, Cancer, COPD, GERD/Reflux, Hyperlipidemia, Hypertension, Pneumonia, Sleep Apnea/CPAP/BIPAP, Thyroid Disorder Additional Past Medical History / Comment(s): 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, adrenal insufficiency, hiatal hernia, basal cell carcinoma of the skin, uses cane , uses oxygen continous at 3L, irregular bowel movements, hx endocarditis,osteoporosis, hx fx spine agammaglobulinemia History of Any Multi-Drug Resistant Organisms: None Reported Past Surgical History: Adenoidectomy, Appendectomy, Back Surgery, Breast Surgery, Cholecystectomy, Hysterectomy, Joint Replacement, Tonsillectomy Additional Past Surgical History / Comment(s): left knee replacement, left knee arthroscopy, breast biopsy-rt, mino breast reduction, hemorrhoidectomy, back surgery fusion with additional surgery X1, Past Anesthesia/Blood Transfusion Reactions: Family History of Problems w/ Anesthesia, Motion Sickness Additional Past Anesthesia/Blood Transfusion Reaction / Comm: "brother was awake during whole surgery" Past Psychological History: No Psychological Hx Reported Smoking Status: Never smoker Past Alcohol Use History: None Reported Past Drug Use History: None Reported - Past Family History Mother Family Medical History: Cancer (Breast) Father Family Medical History: Coronary Artery Disease (CAD) Medications and Allergies Home Medications Medication Instructions Recorded Confirmed Type Albuterol Nebulized [Ventolin 2.5 mg INHALATION RT-Q4H PRN 06/28/20 09/05/20 History Nebulized] Alendronate Sodium [Fosamax] 70 mg PO WE 06/28/20 09/05/20 History Baclofen 10 mg PO QID PRN 06/28/20 09/05/20 History Budesonide/Formoterol Fumarate 2 puff INHALATION RT-BID 06/28/20 09/05/20 History [Symbicort 160-4.5 Mcg Inhaler] Buprenorphine HCl [Belbuca] 300 mcg BC BID 06/28/20 09/05/20 History Gabapentin [Neurontin] 300 mg PO TID 06/28/20 09/05/20 History Levothyroxine Sodium [Tirosint-Carly] 200 mcg SL DAILY 06/28/20 09/05/20 History Meclizine [Antivert] 25 mg PO TID PRN 06/28/20 09/05/20 History Mirtazapine [Remeron] 30 mg PO HS 06/28/20 09/05/20 History Montelukast [Singulair] 10 mg PO HS 06/28/20 09/05/20 History Rosuvastatin [Crestor] 10 mg PO HS 06/28/20 09/05/20 History Sulfamethox-Tmp 800-160Mg [Bactrim 1 tab PO MOWEFR 06/28/20 09/05/20 History DS 800-160 mg] Topiramate [Topamax] 100 mg PO BID 06/28/20 09/05/20 History predniSONE 5 mg PO DAILY 06/28/20 09/05/20 History rOPINIRole HCL [Requip] 2 mg PO HS 06/28/20 09/05/20 History traMADol HCl [Ultram] 50 mg PO TID PRN 06/28/20 09/05/20 History Benzonatate [Tessalon Perles] 200 mg PO TID PRN 09/05/20 09/05/20 History Levothyroxine Sodium [Tirosint-Carly] 100 mcg SL DAILY 09/05/20 09/05/20 History Ondansetron Odt [Zofran Odt] 8 mg PO Q8HR PRN 09/05/20 09/05/20 History Primidone [Mysoline] 25 mg PO TID 09/05/20 09/05/20 History Allergies Allergy/AdvReac Type Severity Reaction Status Date / Time aspirin Allergy Rash/Hives Verified 09/05/20 16:16 bee pollen Allergy Anaphylaxis Verified 09/05/20 16:16 cefdinir [From Omnicef] Allergy Anaphylaxis Verified 09/05/20 16:16 clarithromycin [From Biaxin] Allergy Anaphylaxis Verified 09/05/20 16:16 ibuprofen [From Advil] Allergy Anaphylaxis Verified 09/05/20 16:16 Iodinated Contrast Media Allergy SWELLING Verified 09/05/20 16:16 [Iodinated Contrast Media - OF THROAT IV Dye] iodine Allergy Anaphylaxis Verified 09/05/20 16:16 omalizumab [From Xolair] Allergy Anaphylaxis Verified 09/05/20 16:16 prochlorperazine edisylate Allergy Rash/Hives Verified 09/05/20 16:16 [From Compazine] prochlorperazine maleate Allergy Rash/Hives Verified 09/05/20 16:16 [From Compazine] shellfish derived Allergy Anaphylaxis Verified 09/05/20 16:16 Penicillins AdvReac Dyspnea Verified 09/05/20 16:16 Surgical - Exam Vital Signs Temp Pulse Resp BP Pulse Ox 98.7 F 73 20 158/82 96 09/05/20 13:33 09/05/20 13:33 09/05/20 13:33 09/05/20 13:33 09/05/20 13:33 - General no distress, no pain, chronically ill - Eyes PERRL, normal ocular movement, no icteric - ENT normal pinna, normal nares, normal mucosa, no congestion, decreased hearing - Neck no masses, no bruits, trachea midline, no venous distension - Respiratory Lung sounds are essentially clear throughout, diminished bilateral bases. Respirations are symmetrical and nonlabored. 5 L nasal cannula of oxygen. - Cardiovascular Regular rhythm and rate. S1 and S2 present, negative for S3, gallop or murmur. No edema present. - Abdomen Abdomen is soft, nontender and nondistended. Active bowel sounds present in all 4 abdominal quadrants. No guarding or rigidity. - Genitourinary Deferred - Rectum Deferred - Integumentary Large soft tissue mass to her right posterior lateral back just around her scapula. No erythema or ecchymosis present. The mass is nontender to palpate. no rash, no abnormal pigmentation - Neurologic Cranial nerves II through XII intact. No focal or motor deficits. - Musculoskeletal Moves all 4 extremities with equal strength. - Psychiatric oriented to time, oriented to person, oriented to place, speech is normal, memory intact Results - Labs 09/05/20 14:40 09/05/20 14:40 Abnormal Lab Results - Last 24 Hours (Table) 09/05/20 09/05/20 Range/Units 14:40 14:40 WBC 11.6 H (3.8-10.6) k/uL RBC 3.50 L (3.80-5.40) m/uL Hgb 10.9 L (11.4-16.0) gm/dL RDW 16.6 H (11.5-15.5) % Neutrophils # 8.2 H (1.3-7.7) k/uL Monocytes # 1.2 H (0-1.0) k/uL Carbon Dioxide 33 H (22-30) mmol/L BUN 26 H (7-17) mg/dL AST 38 H (14-36) U/L Diabetes panel 09/05/20 Range/Units 14:40 Sodium 139 (137-145) mmol/L Potassium 4.9 (3.5-5.1) mmol/L Chloride 101 (98-107) mmol/L Carbon Dioxide 33 H (22-30) mmol/L BUN 26 H (7-17) mg/dL Creatinine 0.93 (0.52-1.04) mg/dL Glucose 88 (74-99) mg/dL Calcium 8.8 (8.4-10.2) mg/dL AST 38 H (14-36) U/L ALT 23 (4-34) U/L Alkaline Phosphatase 119 (38-126) U/L Total Protein 7.5 (6.3-8.2) g/dL Albumin 4.3 (3.5-5.0) g/dL Calcium panel 09/05/20 Range/Units 14:40 Calcium 8.8 (8.4-10.2) mg/dL Albumin 4.3 (3.5-5.0) g/dL Pituitary panel 09/05/20 Range/Units 14:40 Sodium 139 (137-145) mmol/L Potassium 4.9 (3.5-5.1) mmol/L Chloride 101 (98-107) mmol/L Carbon Dioxide 33 H (22-30) mmol/L BUN 26 H (7-17) mg/dL Creatinine 0.93 (0.52-1.04) mg/dL Glucose 88 (74-99) mg/dL Calcium 8.8 (8.4-10.2) mg/dL Adrenal panel 09/05/20 Range/Units 14:40 Sodium 139 (137-145) mmol/L Potassium 4.9 (3.5-5.1) mmol/L Chloride 101 (98-107) mmol/L Carbon Dioxide 33 H (22-30) mmol/L BUN 26 H (7-17) mg/dL Creatinine 0.93 (0.52-1.04) mg/dL Glucose 88 (74-99) mg/dL Calcium 8.8 (8.4-10.2) mg/dL Total Bilirubin 0.4 (0.2-1.3) mg/dL AST 38 H (14-36) U/L ALT 23 (4-34) U/L Alkaline Phosphatase 119 (38-126) U/L Total Protein 7.5 (6.3-8.2) g/dL Albumin 4.3 (3.5-5.0) g/dL - Imaging CT scan - chest: report reviewed, image reviewed Assessment and Plan Assessment: 1. Soft tissue mass right posterior lateral chest, probable hematoma 2. Recent fall from standing with multiple rib fractures right chest in June 2020 3. 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 Asthma 5. Hypertension 6. Hyperlipidemia 7. Hypothyroid 8. Lifetime nonsmoker Plan: The patient was seen and examined at her bedside in the emergency room. Her chart diagnostics were reviewed. Her case was discussed in detail with Dr. Dionisio Coley from cardiothoracic surgery. Recommendations are to consult interventional radiology for percutaneous drain placement. Medical management and other comorbidities per primary care service. More recommendations to follow based on patient's clinical course. Thank you for this consult and we will look for to following with you in the care of this patient. Time with Patient: Greater than 30
[2020-09-06] MEDS ORDERED: predniSONE 5 MG TAB PO SCH (09:00)
[2020-09-06] MEDS: PRIMIDONE 50 MG TAB PO SCH (10:10)
[2020-09-06] MEDS: TOPIRAMATE 100 MG TAB PO SCH (10:11)
[2020-09-06] MEDS: GABAPENTIN 100 MG CAP PO SCH (10:27)
[2020-09-06 12:39] VITALS: RESP 18
--- NOTE | 2020-09-06 12:41 | P.PN ---
Subjective Progress Note Date: 09/06/20 Principal diagnosis: Soft tissue mass right posterior lateral chest, abnormal hematoma. 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 The patient was seen in follow-up today 09/06/2020 at her bedside in the emergency room Department. The patient is awake, alert and oriented 3 and is currently laying in bed in no acute apparent distress. Denies any complaints of pain or shortness of breath. Oxygen saturations are 100% on 5 L nasal cannula. Soft tissue mass to her right posterior lateral chest nontender to palpate. She remains afebrile the last 24 hours. Objective - Vital Signs Vital signs: Vital Signs Temp 97.6 F 09/06/20 00:36 Pulse 70 09/06/20 08:38 Resp 20 09/06/20 08:38 BP 132/78 09/06/20 08:37 Pulse Ox 100 09/06/20 08:37 Intake & Output 09/05/20 09/06/20 09/06/20 18:59 06:59 18:59 Intake Total 200 Balance 200 Weight 63.957 kg Intake: Intake, IV Titration 200 Amount Sodium Chloride 0.9% 1, 200 000 ml @ 50 mls/hr IV . Q20H [facility] Rx#:[id number] - Constitutional General appearance: Present: average body habitus, cooperative, no acute distress - EENT Eyes: Present: normal appearance. Absent: scleral icterus - Neck Details: Neck is supple, no lymphadenopathy. - Respiratory Details: Lung sounds essentially clear with some expiratory wheezes scattered throughout. Respirations are symmetrical and nonlabored. Oxygen saturation is 100% on 5 L nasal cannula. - Cardiovascular Details: Regular rhythm and rate. S1 and S2 present, negative for S3, gallop or murmur. No edema present. - Gastrointestinal Gastrointestinal Comment(s): Abdomen is soft, nontender and nondistended. Active bowel sounds present all 4 abdominal quadrants. No guarding or rigidity. - Genitourinary Genitourinary Comment(s): Continues to void. - Integumentary Integumentary Comment(s): Skin is warm and dry. Soft tissue mass to her right posterior lateral chest without erythema or ecchymosis. - Neurologic Neurologic: Present: CNII-XII intact. Absent: focal deficits - Musculoskeletal Musculoskeletal: Present: gait normal, strength equal bilaterally - Psychiatric Psychiatric: Present: A&O x's 3, appropriate affect, intact judgment & insight - Allied health notes Allied health notes reviewed: nursing - Labs CBC & Chem 7: 09/05/20 14:40 09/05/20 14:40 Labs: Abnormal Lab Results - Last 24 Hours (Table) 09/05/20 09/05/20 Range/Units 14:40 14:40 WBC 11.6 H (3.8-10.6) k/uL RBC 3.50 L (3.80-5.40) m/uL Hgb 10.9 L (11.4-16.0) gm/dL RDW 16.6 H (11.5-15.5) % Neutrophils # 8.2 H (1.3-7.7) k/uL Monocytes # 1.2 H (0-1.0) k/uL Carbon Dioxide 33 H (22-30) mmol/L BUN 26 H (7-17) mg/dL AST 38 H (14-36) U/L Assessment and Plan Assessment: 1. Soft tissue mass right posterior lateral chest, probable hematoma 2. Recent fall from standing with multiple rib fractures right chest in Jun 3. 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 Asthma 5. Hypertension 6. Hyperlipidemia 7. Hypothyroid 8. Lifetime nonsmoker Plan: 1. Interventional radiology unable to place percutaneous drain. 2. Apply warm compresses to her right posterior lateral soft tissue mass twice a day. 3. May be discharged home and follow-up with Dr. Dionisio Coley in the office next , 09/13/2020 when okay with primary care service. 4. Please feel free to call cardiothoracic surgery service for further questions. Time with Patient: Greater than 30
[2020-09-06 13:00] VITALS: BP 121/75
--- NOTE | 2020-09-06 14:06 | US ---
Discontinued fine-needle aspiration, discontinued chest tube placement HISTORY: Chest wall hematoma After informed consent the skin overlying the palpable abnormality in the right posterior chest was l ocalized with ultrasound and the overlying skin prepped and draped. Lidocaine used for local anesthes ia. Skin ysabel was made with a scalpel. 21-gauge needle was advanced under ultrasound guidance and les s than 1 cc of dark fluid was obtained. Following discussion with the referring clinician, chest tube placement was aborted. Hematoma is thought to be present which is clotted. There is no competition, patient remained in stable condition. IMPRESSION: Discontinued chest tube placement. Follow-up clinically.
[2020-09-06 15:50] VITALS: PULSE 62
--- NOTE | 2020-09-06 23:24 | P.DS ---
Providers Date of admission: 09/05/20 16:21 Expected date of discharge: 09/06/20 Attending physician: Prashant Castro Consults: 09/05/20 16:55 Consult Physician Routine Consulting Provider: Dionisio Coley Consult Reason/Comments: hematoma Do you want consulting provider notified?: Already Contacted Primary care physician: Maikel Johnson [facility] Course: Chief Complaint: Mass in the right chest wall History of presenting complaint: This is a 65-year-old patient who follows with Dr. Maikel Johnson. Chronic stable medical conditions include hypothyroid, GERD, hyperlipidemia, bilateral hemidiaphragmatic paralysis, hiatal hernia, agammaglobebemia, chronic hypoxic respiratory failure on home oxygen 5 L, chronic low back pain, essential tremor. Does use a walker , lives with her brother. On 06/28/2020 patient presented to the ER after she took a fall on a newly installed floor hitting the right chest wall. Patient normally uses 5 L of oxygen at home and pulse ox around 80-90%. Computed tomography scan of the chest showed acute displaced fracture posterior right fourth and minimally displaced posterior lateral right sixth rib., And fifth rib fracture. Also was known lower lung volumes tomography demonstrated with a chronic consolidation. On 08/04/2020 patient presented to ER with low back pain. She said it was bothersome over last few days. Pain was localized to the back. Physical exam on that ER visit by Dr. Vigil ER physician shows a lidocaine patch over the right ribs. No mass was described. Patient subsequently currently went to see her family doctor Dr. Johnson. He wanted a computed tomography scan of the chest. This was done on 08/24/2020. This is done without contrast. No moderate subcutaneous edema and soft tissue swelling over the lateral right thorax noted. There was also normal hyperdense deep mass presumed to be deep hematoma just peripheral to the ribs measuring 15 cm in the long axis. Also small hematoma near the right scapula measuring about 7 cm. Multiple subacute healing displaced fracture rubs were noted. Dr. Johnson the family doctor referred the patient to Dr. Anders / vascular surgeon. To be evacuated. He sent the patient down to ER to be further everted by cardiothoracic surgery because of the size of the mass. Computed tomography scan done in the ER today showed fracture through second through eighth ribs with the reported hematoma measuring about 6.9 cm in the caudal axis. Patient is slight discomfort in same. No trouble with her breathing. Today-patient seen by Dr. Coley from cardiothoracic surgery. Interventional radiology was consulted. They attempted to put a chest tube. Got some clotted blood. Procedure banded. Dr. Coley said to have the patient do warm compress 2-3 times a day and follow-up in the office. This was discussed at length with the patient. Questions answered. Consultation: Dr. Coley from cardiothoracic surgery Review of systems: GEN.: Thyroid decreased appetite fever EYES: None HEENT: None NECK: None RESPIRATORY: Congested chest not able to expectorate CARDIOVASCULAR: None GASTROINTESTINAL: None GENITOURINARY: None MUSCULOSKELETAL: Chronic low back pain LYMPHATICS: None HEMATOLOGICAL: None PSYCHIATRY: None NEUROLOGICAL: Does use a walker Past medical history: Asthma, GERD, hyperlipidemia, obstructive sleep apnea, hypothyroid, chronic bilateral hemidiaphragmatic paralysis, hiatal hernia, basal cell carcinoma, home oxygen 5 L, and hepatitis, osteoporosis, fracture of the spine, agammaglobebemia, essential tremor, fractured ribs Social history: Does not smoke or drink alcohol. Is a , lives with her brother, uses a walker Physical examination: VITAL SIGNS: 98.7, 73, 20, 1 58/82, 96% on 5 L GENERAL: Reclining in bed, awake EYES: Pupils equal. Conjunctiva normal. HEENT: External appearance of nose and ears normal, oral cavity dry mucous membranes NECK: JVD not raised; masses not palpable. HEART: First and second heart sounds are normal; no edema. LUNGS: Respiratory rate increased, diminished breath sounds prolonged expiration. Mass over the right lateral chest wall. Skin over the masses free Moving. Mild tenderness. ABDOMEN: Soft, nontender, liver spleen not palpable, no masses palpable. PSYCH: AO - times three. Mood and affect normal INVESTIGATIONS, reviewed in the clinical context: White count 9.6 hemoglobin 10.9 platelets 186 potassium 4.9 bun [address] chest- fracture through second through eighth ribs with the reported hematoma measuring about 6.9 cm in the caudal axis. Assessment and plan: -This is a patient had a fall on June 28 and that time had fracture fourth through sixth rib. Subsequent visit to the ER on August 04 had more pain in that area with no mass reported. Subsequently patient had a mass that has been growing. Patient was sent by the PCP to vascular surgeon Dr. Anders. We'll send the patient to ER. This is significantly grown in size. The obvious talk to be that of February hematoma. Except that the fact it was not noticed on August 04 witnessed the fall had taken place on June 28. Possibly organized hematoma. - moderate persistent asthma, continue bronchodilators -Hypothyroidism., Continue levothyroxin -GERD -Hyperlipidemia, on Crestor -Chronic bilateral hemidiaphragmatic paralysis -Hiatal hernia -Chronic hypoxic respiratory failure on home oxygen 5 L from bilateral feliz- diaphragmatic paralysis -Chronic low back pain, from arthritis, continue pain medications -Restless leg syndrome, continue Requip Disposition: Home Plan - Discharge Summary Discharge Rx Participant: No New Discharge Prescriptions: Continue traMADol HCl [Ultram] 50 mg PO TID PRN PRN Reason: Pain Topiramate [Topamax] 100 mg PO BID Levothyroxine Sodium [Tirosint-Carly] 200 mcg SL DAILY rOPINIRole HCL [Requip] 2 mg PO HS predniSONE 5 mg PO DAILY Sulfamethox-Tmp 800-160Mg [Bactrim DS 800-160 mg] 1 tab PO MOWEFR Rosuvastatin [Crestor] 10 mg PO HS Montelukast [Singulair] 10 mg PO HS Mirtazapine [Remeron] 30 mg PO HS Meclizine [Antivert] 25 mg PO TID PRN PRN Reason: DIZZINESS Gabapentin [Neurontin] 300 mg PO TID Buprenorphine HCl [Belbuca] 300 mcg BC BID Baclofen 10 mg PO QID PRN PRN Reason: CRAMPS Alendronate Sodium [Fosamax] 70 mg PO WE Budesonide/Formoterol Fumarate [Symbicort 160-4.5 Mcg Inhaler] 2 puff INHALATION RT-BID Albuterol Nebulized [Ventolin Nebulized] 2.5 mg INHALATION RT-Q4H PRN PRN Reason: Shortness Of Breath Benzonatate [Tessalon Perles] 200 mg PO TID PRN PRN Reason: Cough Levothyroxine Sodium [Tirosint-Carly] 100 mcg SL DAILY Ondansetron Odt [Zofran ODT] 8 mg PO Q8HR PRN PRN Reason: Nausea Primidone [Mysoline] 25 mg PO TID Discharge Medication List Albuterol Nebulized [Ventolin Nebulized] 2.5 mg INHALATION RT-Q4H PRN 06/28/20 [History] Alendronate Sodium [Fosamax] 70 mg PO WE 06/28/20 [History] Baclofen 10 mg PO QID PRN 06/28/20 [History] Budesonide/Formoterol Fumarate [Symbicort 160-4.5 Mcg Inhaler] 2 puff INHALATION RT-BID 06/28/20 [History] Buprenorphine HCl [Belbuca] 300 mcg BC BID 06/28/20 [History] Gabapentin [Neurontin] 300 mg PO TID 06/28/20 [History] Levothyroxine Sodium [Tirosint-Carly] 200 mcg SL DAILY 06/28/20 [History] Meclizine [Antivert] 25 mg PO TID PRN 06/28/20 [History] Mirtazapine [Remeron] 30 mg PO HS 06/28/20 [History] Montelukast [Singulair] 10 mg PO HS 06/28/20 [History] Rosuvastatin [Crestor] 10 mg PO HS 06/28/20 [History] Sulfamethox-Tmp 800-160Mg [Bactrim DS 800-160 mg] 1 tab PO MOWEFR 06/28/20 [History] Topiramate [Topamax] 100 mg PO BID 06/28/20 [History] predniSONE 5 mg PO DAILY 06/28/20 [History] rOPINIRole HCL [Requip] 2 mg PO HS 06/28/20 [History] traMADol HCl [Ultram] 50 mg PO TID PRN 06/28/20 [History] Benzonatate [Tessalon Perles] 200 mg PO TID PRN 09/05/20 [History] Levothyroxine Sodium [Tirosint-Carly] 100 mcg SL DAILY 09/05/20 [History] Ondansetron Odt [Zofran ODT] 8 mg PO Q8HR PRN 09/05/20 [History] Primidone [Mysoline] 25 mg PO TID 09/05/20 [History] Follow up Appointment(s)/Referral(s): Maikel Johnson MD [Primary Care Provider] - 1-2 days Dionisio Coley MD [STAFF PHYSICIAN] - 09/13/20 (Corrine from the office will call with an appointment time for 09/13/2020.) Patient Instructions/Handouts: Hematoma (ED) Activity/Diet/Wound Care/Special Instructions: warm compress tid / mass Discharge Disposition: HOME SELF-CARE
== END 2020-09-06 18:26 | disposition home or self-care (01) ==
LOC: EC 13:30 → INTOOBSV 16:21 → 3SCARD 16:21 → UNDODISIN 09-06 18:26
PROVIDERS: ADMIT Hospitalist; ATTEND Hospitalist
DX: S20.229A Contusion of unspecified back wall of thorax, initial encounter (principal); J45.40 Moderate persistent asthma, uncomplicated; J44.9 Chronic obstructive pulmonary disease, unspecified; E03.9 Hypothyroidism, unspecified; K21.9 Gastro-esophageal reflux disease without esophagitis; E78.5 Hyperlipidemia, unspecified; K44.9 Diaphragmatic hernia without obstruction or gangrene; J96.11 Chronic respiratory failure with hypoxia; G89.29 Other chronic pain; M54.5 Low back pain; M47.816 Spondylosis without myelopathy or radiculopathy, lumbar region; G25.81 Restless legs syndrome; G47.33 Obstructive sleep apnea (adult) (pediatric); Z99.81 Dependence on supplemental oxygen; M81.0 Age-related osteoporosis without current pathological fracture; Z86.19 Personal history of other infectious and parasitic diseases; G25.0 Essential tremor; I10 Essential (primary) hypertension; E27.40 Unspecified adrenocortical insufficiency; Z96.652 Presence of left artificial knee joint; M19.90 Unspecified osteoarthritis, unspecified site; G83.9 Paralytic syndrome, unspecified; Z91.81 History of falling; Z87.01 Personal history of pneumonia (recurrent); Z99.89 Dependence on other enabling machines and devices; Z85.828 Personal history of other malignant neoplasm of skin; Z90.49 Acquired absence of other specified parts of digestive tract; Z79.899 Other long term (current) drug therapy; Z79.1 Long term (current) use of non-steroidal anti-inflammatories (NSAID); Z79.891 Long term (current) use of opiate analgesic; Z79.83 Long term (current) use of bisphosphonates; Z79.51 Long term (current) use of inhaled steroids; Z88.6 Allergy status to analgesic agent; Z88.1 Allergy status to other antibiotic agents; Z91.030 Bee allergy status; Z91.041 Radiographic dye allergy status; Z88.0 Allergy status to penicillin; Z91.013 Allergy to seafood; Z88.8 Allergy status to other drugs, medicaments and biological substances; Z91.048 Other nonmedicinal substance allergy status; Z90.710 Acquired absence of both cervix and uterus; Z98.890 Other specified postprocedural states; Z90.89 Acquired absence of other organs; Z82.49 Family history of ischemic heart disease and other diseases of the circulatory system; Z80.3 Family history of malignant neoplasm of breast
CPT/HCPCS: 96361; 96374; 96375; 99285; 36415; 94640 ×2; 80053; 85025; 85610; 85730; 76536; 71260; 10005; G0378 ×2; J1200; J2930; J7512; Q9967

== ENCOUNTER 2020-09-17 11:06 | Day surgery (SDC) | payer MEDICARE ==
[2020-09-13 18:06] VITALS: BMI 22.7
[~2020-09-17 11:06] MED LIST: CLINDAMYCIN 900 MG in DEXTROSE 5% IN WATER 50 ML IVPB PRN; LIDOCAINE 1% (10MG/ML) FOR IV START INTRADERMA PRN
[2020-09-17] MEDS: LACTATED RINGERS 1,000 ML IV SCH ×2 (11:26→11:45)
[2020-09-17] MEDS ORDERED: ONDANSETRON 4 MG/2 ML VIAL ONE (11:57)
[2020-09-17 12:09] LABS: Glucose,Whole Blood 101 mg/dL (75-99)
[2020-09-17] MEDS ORDERED: MIDAZOLAM 2 MG/2 ML VIAL IV ONE (13:34)
[2020-09-17] MEDS ORDERED: PROPOFOL 10 MG/ML 20 ML VIAL IV ONE (13:36)
[2020-09-17] MEDS ORDERED: ACETAMINOPHEN IV (For NPO) 1,000 MG/100 ML VIAL ONE (13:36)
[2020-09-17] MEDS ORDERED: PHENYLEPHRINE-0.9% NACL SYG 1,000 MCG/10 ML SYRINGE ONE (13:36)
[2020-09-17] MEDS ORDERED: fentaNYL (PF) 50 MCG/ML 2 ML AMP ONE (13:36)
[2020-09-17] MEDS ORDERED: ePHEDrine SULFATE/0.9% NACL/PF 50 MG/5 ML SYRINGE IV ONE (13:36)
[2020-09-17] MEDS ORDERED: GLYCOPYRROLATE 0.2 MG/ML 2 ML VIAL ONE (13:36)
[2020-09-17] MEDS ORDERED: BUPIVACAINE (PF) 0.5% 30 ML VIAL SQ ONE ×2 (13:56)
[2020-09-17] MEDS: HYDROmorphone 0.5 MG/0.5 ML SYRINGE IVP PRN ×2 (14:35→14:48)
--- NOTE | 2020-09-17 14:39 | P.OP ---
Date of Procedure: 09/17/20 Preoperative Diagnosis: Chest wall hematoma status post fall Postoperative Diagnosis: Same Procedure(s) Performed: I and D chest wall hematoma Implants: 19 Liam drain Anesthesia: GETA Surgeon: Dionisio Coley Estimated Blood Loss (ml): 5 IV fluids (ml): 200 Urine output (ml): 0 Pathology: other (Hematoma) Condition: stable Disposition: PACU Indications for Procedure: 65-year-old female who is 2-3 weeks status post fall. She had multiple fractured ribs. She was seen in an outlying facility. She continued to complain of pain. She was seen in the emergency department here approximately 10 days ago. Time she was noted to have a large hematoma of the chest wall. Percutaneous drainage was recommended. Interventional radiology refused to drain the lesion. The patient was seen back in the office last week. Needle was placed into the mass and we could not aspirate anything. It was felt this was likely solid clot and require operative drainage. Elective surgery was scheduled. Operative Findings: The patient was brought to the operating room and placed supine on the operating table. Gen. anesthesia was induced. LMA was placed. Patient was rolled slightly to the left and propped up. The left the right arm was supported. The right posterior chest was exposed. Sterilely prepped and draped over the area of the hematoma. Half percent Marcaine was used for skin anesthesia. A 3 cm incision was performed and carried down through skin and subcutaneous tissue to the muscle. The muscle was incised and on reaching the chest wall there was a large space measuring approximately 15 x 10 x 10 cm. This was filled with mature thrombus. The thrombus was removed. The space was irrigated with hydrogen peroxide. Once we had completely cleaned out the space and 19-Nigerien drain was placed in the space and brought to the skin anteriorly inferiorly and secured with a 2-0 nylon stitch. Drain was cut to appropriate length and coiled in the pocket. The pocket was then closed with 2 layers of 2-0 Vicryl in the muscle and subcutaneous tissue and a 3-0 Vicryl subcuticular stitch. Skin glue and dry sterile dressings were applied. The drain was connected to a bulb suction and minimal drainage was noted. Patient was transferred to recovery in stable condition. Plan - Discharge Summary Discharge Rx Participant: No New Discharge Prescriptions: No Action traMADol HCl [Ultram] 50 mg PO TID PRN PRN Reason: Pain Topiramate [Topamax] 100 mg PO BID Levothyroxine Sodium [Tirosint-Carly] 200 mcg SL DAILY rOPINIRole HCL [Requip] 2 mg PO HS predniSONE 5 mg PO 1200 Sulfamethox-Tmp 800-160Mg [Bactrim DS 800-160 mg] 1 tab PO MOWEFR Rosuvastatin [Crestor] 10 mg PO HS Montelukast [Singulair] 10 mg PO HS Mirtazapine [Remeron] 30 mg PO HS Meclizine [Antivert] 25 mg PO TID PRN PRN Reason: DIZZINESS Gabapentin [Neurontin] 300 mg PO TID Buprenorphine HCl [Belbuca] 300 mcg BC BID Baclofen 10 mg PO QID PRN PRN Reason: CRAMPS Alendronate Sodium [Fosamax] 70 mg PO WE Budesonide/Formoterol Fumarate [Symbicort 160-4.5 Mcg Inhaler] 2 puff INHAL ATION RT-BID Albuterol Nebulized [Ventolin Nebulized] 2.5 mg INHALATION RT-Q4H PRN PRN Reason: Shortness Of Breath Benzonatate [Tessalon Perles] 200 mg PO TID PRN PRN Reason: Cough Levothyroxine Sodium [Tirosint-Carly] 100 mcg SL DAILY Ondansetron Odt [Zofran ODT] 8 mg PO Q8HR PRN PRN Reason: Nausea Primidone [Mysoline] 25 mg PO TID Hyszentra Infusion 1 dose SQ Q14D Discharge Medication List Albuterol Nebulized [Ventolin Nebulized] 2.5 mg INHALATION RT-Q4H PRN 06/28/20 [History] Alendronate Sodium [Fosamax] 70 mg PO WE 06/28/20 [History] Baclofen 10 mg PO QID PRN 06/28/20 [History] Budesonide/Formoterol Fumarate [Symbicort 160-4.5 Mcg Inhaler] 2 puff INHALATION RT-BID 06/28/20 [History] Buprenorphine HCl [Belbuca] 300 mcg BC BID 06/28/20 [History] Gabapentin [Neurontin] 300 mg PO TID 06/28/20 [History] Levothyroxine Sodium [Tirosint-Carly] 200 mcg SL DAILY 06/28/20 [History] Meclizine [Antivert] 25 mg PO TID PRN 06/28/20 [History] Mirtazapine [Remeron] 30 mg PO HS 06/28/20 [History] Montelukast [Singulair] 10 mg PO HS 06/28/20 [History] Rosuvastatin [Crestor] 10 mg PO HS 06/28/20 [History] Sulfamethox-Tmp 800-160Mg [Bactrim DS 800-160 mg] 1 tab PO MOWEFR 06/28/20 [History] Topiramate [Topamax] 100 mg PO BID 06/28/20 [History] predniSONE 5 mg PO 1200 06/28/20 [History] rOPINIRole HCL [Requip] 2 mg PO HS 06/28/20 [History] traMADol HCl [Ultram] 50 mg PO TID PRN 06/28/20 [History] Benzonatate [Tessalon Perles] 200 mg PO TID PRN 09/05/20 [History] Levothyroxine Sodium [Tirosint-Carly] 100 mcg SL DAILY 09/05/20 [History] Ondansetron Odt [Zofran ODT] 8 mg PO Q8HR PRN 09/05/20 [History] Primidone [Mysoline] 25 mg PO TID 09/05/20 [History] Hyszentra Infusion 1 dose SQ Q14D 09/13/20 [History] Follow up Appointment(s)/Referral(s): Dionisio Coley MD [STAFF PHYSICIAN] - 09/27/20 9:30 am Activity/Diet/Wound Care/Special Instructions: RAFIQ drain to be empytied daily by home care, quantity and consistency to be recorded and brought with patient for follow up with Dr. Coley May take tylenol for any discomfort Discharge Disposition: HOME WITH HOME HEALTH SERVICES
[2020-09-17 14:42] VITALS: TEMP 97
[2020-09-17 17:37] VITALS: BP 119/83; PULSE 88; RESP 20
== END 2020-09-17 18:05 | disposition home health service (06) ==
LOC: OR 11:06
PROVIDERS: ATTEND Thoracic Surgery (Cardiothoracic Vascular Surgery)
DX: S20.219A Contusion of unspecified front wall of thorax, initial encounter (principal); W19.XXXA Unspecified fall, initial encounter; I10 Essential (primary) hypertension; E78.5 Hyperlipidemia, unspecified; E03.9 Hypothyroidism, unspecified; J44.9 Chronic obstructive pulmonary disease, unspecified; J98.6 Disorders of diaphragm; Z99.81 Dependence on supplemental oxygen; Z87.81 Personal history of (healed) traumatic fracture; G47.30 Sleep apnea, unspecified; Z99.89 Dependence on other enabling machines and devices; E27.40 Unspecified adrenocortical insufficiency; K44.9 Diaphragmatic hernia without obstruction or gangrene; Z90.710 Acquired absence of both cervix and uterus; Z90.49 Acquired absence of other specified parts of digestive tract; Z98.890 Other specified postprocedural states; Z85.828 Personal history of other malignant neoplasm of skin; M81.0 Age-related osteoporosis without current pathological fracture; Z90.89 Acquired absence of other organs; Z98.1 Arthrodesis status; Z96.652 Presence of left artificial knee joint; Z79.83 Long term (current) use of bisphosphonates; Z79.890 Hormone replacement therapy; Z79.51 Long term (current) use of inhaled steroids; Z79.899 Other long term (current) drug therapy; Z80.3 Family history of malignant neoplasm of breast; Z82.49 Family history of ischemic heart disease and other diseases of the circulatory system; Z79.52 Long term (current) use of systemic steroids; Z88.8 Allergy status to other drugs, medicaments and biological substances; Z88.6 Allergy status to analgesic agent; Z88.1 Allergy status to other antibiotic agents; Z91.030 Bee allergy status; Z91.041 Radiographic dye allergy status; Z88.0 Allergy status to penicillin; Z91.013 Allergy to seafood
CPT/HCPCS: 10140; J2250; J2405; J1170; 88304

== ENCOUNTER 2020-09-28 12:14 | Emergency (ER) | payer MEDICARE ==
[2020-09-28 12:30] VITALS: TEMP 98.4
[2020-09-28] MEDS ORDERED: MORPHINE SULFATE 2 MG/ML SYRINGE IM STA (12:51)
--- NOTE | 2020-09-28 12:58 | ED ---
General Adult HPI - General Chief complaint: Recheck/Abnormal Lab/Rx Stated complaint: needs pressure bandage Time Seen by Provider: 09/28/20 12:39 Source: patient Mode of arrival: wheelchair Limitations: no limitations - History of Present Illness Initial comments: Patient is a 65-year-old female that presents to emergency department status post drain removal from her right flank. She noted that since she's had the drain removed she has been steadily leaking blood and has been through several dressings with her home health care nurse. She called her doctor and he told her to come in to get a pressure dressing done at the ER. She did note that she was in and out of 10 pain would like some pain medication. She is in no apparent distress or discomfort while sitting up in bed during the exam. She denied chest pendulous breath headache nausea vomiting diarrhea constipation fever fatigue chills. - Related Data Home Medications Medication Instructions Recorded Confirmed Albuterol Nebulized [Ventolin 2.5 mg INHALATION RT-Q4H PRN 06/28/20 09/17/20 Nebulized] Alendronate Sodium [Fosamax] 70 mg PO WE 06/28/20 09/17/20 Baclofen 10 mg PO QID PRN 06/28/20 09/17/20 Budesonide/Formoterol Fumarate 2 puff INHALATION RT-BID 06/28/20 09/17/20 [Symbicort 160-4.5 Mcg Inhaler] Buprenorphine HCl [Belbuca] 300 mcg BC BID 06/28/20 09/17/20 Gabapentin [Neurontin] 300 mg PO TID 06/28/20 09/17/20 Levothyroxine Sodium [Tirosint-Carly] 200 mcg SL DAILY 06/28/20 09/17/20 Meclizine [Antivert] 25 mg PO TID PRN 06/28/20 09/17/20 Mirtazapine [Remeron] 30 mg PO HS 06/28/20 09/17/20 Montelukast [Singulair] 10 mg PO HS 06/28/20 09/17/20 Rosuvastatin [Crestor] 10 mg PO HS 06/28/20 09/17/20 Sulfamethox-Tmp 800-160Mg [Bactrim 1 tab PO MOWEFR 06/28/20 09/17/20 DS 800-160 mg] Topiramate [Topamax] 100 mg PO BID 06/28/20 09/17/20 predniSONE 5 mg PO 1200 06/28/20 09/17/20 rOPINIRole HCL [Requip] 2 mg PO HS 06/28/20 09/17/20 traMADol HCl [Ultram] 50 mg PO TID PRN 06/28/20 09/17/20 Benzonatate [Tessalon Perles] 200 mg PO TID PRN 09/05/20 09/17/20 Levothyroxine Sodium [Tirosint-Carly] 100 mcg SL DAILY 09/05/20 09/17/20 Ondansetron Odt [Zofran ODT] 8 mg PO Q8HR PRN 09/05/20 09/17/20 Primidone [Mysoline] 25 mg PO TID 09/05/20 09/17/20 Hyszentra Infusion 1 dose SQ Q14D 09/13/20 09/17/20 Allergies Allergy/AdvReac Type Severity Reaction Status Date / Time aspirin Allergy Rash/Hives Verified 09/28/20 12:30 bee pollen Allergy Anaphylaxis Verified 09/28/20 12:30 cefdinir [From Omnicef] Allergy Anaphylaxis Verified 09/28/20 12:30 clarithromycin [From Biaxin] Allergy Anaphylaxis Verified 09/28/20 12:30 ibuprofen [From Advil] Allergy Anaphylaxis Verified 09/28/20 12:30 Iodinated Contrast Media Allergy SWELLING Verified 09/28/20 12:30 [Iodinated Contrast Media - OF THROAT IV Dye] iodine Allergy Anaphylaxis Verified 09/28/20 12:30 omalizumab [From Xolair] Allergy Anaphylaxis Verified 09/28/20 12:30 prochlorperazine edisylate Allergy Rash/Hives Verified 09/28/20 12:30 [From Compazine] prochlorperazine maleate Allergy Rash/Hives Verified 09/28/20 12:30 [From Compazine] shellfish derived Allergy Anaphylaxis Verified 09/28/20 12:30 Penicillins AdvReac Dyspnea Verified 09/28/20 12:30 Review of Systems ROS Statement: Those systems with pertinent positive or pertinent negative responses have been documented in the HPI. ROS Other: All systems not noted in ROS Statement are negative. Past Medical History Past Medical History: Asthma, Cancer, COPD, GERD/Reflux, Hyperlipidemia, Pneumonia, Respiratory Disorder, Sleep Apnea/CPAP/BIPAP, Thyroid Disorder Additional Past Medical History / Comment(s): recent admission r/t hematoma chest wall from 06/28/20 fall with R sided rib fractures then later found she had also fractured her R hip, Bilateral hemidiaghramatic paralysis/elevation/weakness, chronic hypoxic respiratory failure with home oxygen at 5L/NC ATC, JAREN but does not tolerate device, tracheobronchitis, agammaglobinemia-pt gives herself hyzentra injections every 2 weeks, adrenal insufficiency, endocarditis, anemia, hiatal hernia, "borderline diabetes", chronic low back pain, DDD, osteoporosis, fractured vertabra x2, chronic pain syndrome, essential tremors, basal cell skin cancer with removals, hypothyroid. History of Any Multi-Drug Resistant Organisms: None Reported Past Surgical History: Adenoidectomy, Appendectomy, Back Surgery, Breast Surgery, Cholecystectomy, Hysterectomy, Joint Replacement, Tonsillectomy Additional Past Surgical History / Comment(s): R breast bx, bilateral breast reduction/precancer, skin cancer with removals, back fusion with hardware, T12 kyphoplasty, L knee arthroscopy/ACL repair, total L knee arthroplasty, epidural back injections, colonoscopy, hemorrhoidectomy. Past Anesthesia/Blood Transfusion Reactions: No Reported Reaction, Family History of Problems w/ Anesthesia, Motion Sickness Additional Past Anesthesia/Blood Transfusion Reaction / Comment(s): "brother was awake during whole surgery" Past Psychological History: No Psychological Hx Reported Smoking Status: Second hand smoke exposure Past Alcohol Use History: None Reported Past Drug Use History: None Reported - Past Family History Mother Family Medical History: Cancer Additional Family Medical History / Comment(s): Metastatic breast cancer. Father Family Medical History: Cancer Additional Family Medical History / Comment(s): Lung cancer General Exam Limitations: no limitations General appearance: alert, in no apparent distress Head exam: Present: atraumatic, normocephalic, normal inspection Neck exam: Present: normal inspection. Absent: tenderness, meningismus, lymphadenopathy Respiratory exam: Present: normal lung sounds bilaterally. Absent: respiratory distress, wheezes, rales, rhonchi, stridor Cardiovascular Exam: Present: regular rate, normal rhythm, normal heart sounds. Absent: systolic murmur, diastolic murmur, rubs, gallop, clicks GI/Abdominal exam: Present: soft, normal bowel sounds. Absent: distended, tenderness, guarding, rebound, rigid Extremities exam: Present: normal inspection, full ROM, normal capillary refill, other (Small RAFIQ drain site right flank). Absent: tenderness, pedal edema, joint swelling, calf tenderness Back exam: Present: normal inspection Neurological exam: Present: alert, oriented X3, CN II-XII intact Psychiatric exam: Present: normal affect, normal mood Skin exam: Present: warm, dry, intact, normal color. Absent: rash Course Vital Signs 09/28/20 12:27 Temperature 98.4 F Pulse Rate 91 Respiratory 20 Rate Blood Pressure 125/80 O2 Sat by Pulse 94 L Oximetry Medical Decision Making - Medical Decision Making 65-year-old female complaining of bleeding from drain site after removal for several days. Pressure dressing to be applied, by using stacks 2 x 2's over a couple for the 2 x 2's over the RAFIQ drain site then tightly taped down. Stack of 4 x 4's was then placed over top this and taped tightly down. Abdominal pain and was then used to cover all it and taped down. 2 mg morphine ordered for pain. Case discussed with Dr. Hawley, was decided patient to discharge home. Disposition Clinical Impression: Encounter for wound care Disposition: HOME SELF-CARE Condition: Stable Instructions (If sedation given, give patient instructions): Acute Wound Care (ED) Additional Instructions: Please return to the Emergency Department if symptoms worsen or any other concerns. Try to avoid any strenuous movement or activity to allow pressure dressing to work. Inform home care nurse that during bandage changes to stack more 2 x 2 and tape downp for better pressure. Continue to take at home medications as prescribed. Follow-up with primary care 1-2 days. Is patient prescribed a controlled substance at d/c from ED?: No Referrals: Maikel Johnson MD [Primary Care Provider] - 1-2 days Time of Disposition: 13:26
[2020-09-28 14:12] VITALS: BP 132/84; PULSE 85; RESP 18
== END 2020-09-28 14:12 | disposition home or self-care (01) ==
LOC: EC 12:14
DX: Z48.03 Encounter for change or removal of drains (principal); E78.5 Hyperlipidemia, unspecified; G47.33 Obstructive sleep apnea (adult) (pediatric); J44.9 Chronic obstructive pulmonary disease, unspecified; J96.11 Chronic respiratory failure with hypoxia; K21.9 Gastro-esophageal reflux disease without esophagitis; Z79.51 Long term (current) use of inhaled steroids; Z79.52 Long term (current) use of systemic steroids; Z80.1 Family history of malignant neoplasm of trachea, bronchus and lung; Z80.3 Family history of malignant neoplasm of breast; Z88.0 Allergy status to penicillin; Z88.1 Allergy status to other antibiotic agents; Z88.6 Allergy status to analgesic agent; Z88.8 Allergy status to other drugs, medicaments and biological substances
CPT/HCPCS: 99282; 96372; J2270

== ENCOUNTER 2020-10-03 15:07 | Observation (INO) | payer MEDICARE ==
--- NOTE | 2020-10-03 15:28 | ED ---
General Adult HPI - General Chief complaint: Recheck/Abnormal Lab/Rx Stated complaint: bleeding wound Time Seen by Provider: 10/03/20 15:12 Source: patient, EMS, RN notes reviewed Mode of arrival: EMS Limitations: no limitations - History of Present Illness Initial comments: Patient is a pleasant 65-year-old female presenting to the emergency Department with bleeding from her back. Patient did have a fall several months ago with broken ribs. Patient then had hematoma that was evacuated and drinking tube was placed. Following removal of this patient had continued bleeding. Patient was in the emergency department several days ago with similar symptoms. Patient has continued to have bleeding and blood clots come out from the area. There is mi ld discomfort. No weakness or fatigue. No dyspnea. No other areas of bleeding. Patient is not on blood thinners. - Related Data Home Medications Medication Instructions Recorded Confirmed Albuterol Nebulized [Ventolin 2.5 mg INHALATION RT-QID PRN 06/28/20 09/28/20 Nebulized] Alendronate Sodium [Fosamax] 70 mg PO WE 06/28/20 09/28/20 Baclofen 10 mg PO QID PRN 06/28/20 09/28/20 Budesonide/Formoterol Fumarate 2 puff INHALATION RT-BID 06/28/20 09/28/20 [Symbicort 160-4.5 Mcg Inhaler] Buprenorphine HCl [Belbuca] 300 mcg BC BID 06/28/20 09/28/20 Gabapentin [Neurontin] 300 mg PO TID 06/28/20 09/28/20 Levothyroxine Sodium [Tirosint-Carly] 200 mcg SL AC-BRKFST 06/28/20 09/28/20 Meclizine [Antivert] 25 mg PO TID PRN 06/28/20 09/28/20 Mirtazapine [Remeron] 30 mg PO HS 06/28/20 09/28/20 Montelukast [Singulair] 10 mg PO HS 06/28/20 09/28/20 Rosuvastatin [Crestor] 10 mg PO HS 06/28/20 09/28/20 Sulfamethox-Tmp 800-160Mg [Bactrim 1 tab PO MOWEFR 06/28/20 09/28/20 DS 800-160 mg] Topiramate [Topamax] 100 mg PO BID 06/28/20 09/28/20 predniSONE 5 mg PO DAILY@1200 06/28/20 09/28/20 rOPINIRole HCL [Requip] 2 mg PO HS 06/28/20 09/28/20 traMADol HCl [Ultram] 50 mg PO TID PRN 06/28/20 09/28/20 Benzonatate [Tessalon Perles] 200 mg PO TID PRN 09/05/20 09/28/20 Levothyroxine Sodium [Tirosint-Carly] 100 mcg SL AC-BRKFST 09/05/20 09/28/20 Ondansetron Odt [Zofran ODT] 8 mg PO Q8HR PRN 09/05/20 09/28/20 Primidone [Mysoline] 25 mg PO TID 09/05/20 09/28/20 Hyszentra Infusion 1 dose SQ Q14D 09/13/20 09/28/20 DULoxetine HCL [Cymbalta] 30 mg PO HS 09/28/20 09/28/20 Allergies Allergy/AdvReac Type Severity Reaction Status Date / Time aspirin Allergy Rash/Hives Verified 09/28/20 13:46 bee pollen Allergy Anaphylaxis Verified 09/28/20 13:46 cefdinir [From Omnicef] Allergy Anaphylaxis Verified 09/28/20 13:46 clarithromycin [From Biaxin] Allergy Anaphylaxis Verified 09/28/20 13:46 ibuprofen [From Advil] Allergy Anaphylaxis Verified 09/28/20 13:46 Iodinated Contrast Media Allergy SWELLING Verified 09/28/20 13:46 [Iodinated Contrast Media - OF THROAT IV Dye] iodine Allergy Anaphylaxis Verified 09/28/20 13:46 omalizumab [From Xolair] Allergy Anaphylaxis Verified 09/28/20 13:46 prochlorperazine edisylate Allergy Rash/Hives Verified 09/28/20 13:46 [From Compazine] prochlorperazine maleate Allergy Rash/Hives Verified 09/28/20 13:46 [From Compazine] shellfish derived Allergy Anaphylaxis Verified 09/28/20 13:46 Penicillins AdvReac Dyspnea Verified 09/28/20 13:46 Review of Systems ROS Statement: Those systems with pertinent positive or pertinent negative responses have been documented in the HPI. ROS Other: All systems not noted in ROS Statement are negative. Constitutional: Denies: fever Eyes: Denies: eye pain ENT: Denies: ear pain Respiratory: Denies: cough Cardiovascular: Reports: as per HPI. Denies: chest pain Endocrine: Denies: fatigue Gastrointestinal: Denies: abdominal pain Genitourinary: Denies: dysuria Musculoskeletal: Denies: back pain Skin: Denies: rash Neurological: Denies: weakness Past Medical History Past Medical History: Asthma, Cancer, COPD, GERD/Reflux, Hyperlipidemia, Pneumonia, Respiratory Disorder, Sleep Apnea/CPAP/BIPAP, Thyroid Disorder Additional Past Medical History / Comment(s): recent admission r/t hematoma chest wall from 06/28/20 fall with R sided rib fractures then later found she had also fractured her R hip, Bilateral hemidiaghramatic paralysis/elevation/weakness, chronic hypoxic respiratory failure with home oxygen at 5L/NC ATC, JAREN but does not tolerate device, tracheobronchitis, agammaglobinemia-pt gives herself hyzentra injections every 2 weeks, adrenal insufficiency, endocarditis, anemia, hiatal hernia, "borderline diabetes", chronic low back pain, DDD, osteoporosis, fractured vertabra x2, chronic pain syndrome, essential tremors, basal cell skin cancer with removals, hypothyroid. History of Any Multi-Drug Resistant Organisms: None Reported Past Surgical History: Adenoidectomy, Appendectomy, Back Surgery, Breast Surgery, Cholecystectomy, Hysterectomy, Joint Replacement, Tonsillectomy Additional Past Surgical History / Comment(s): R breast bx, bilateral breast reduction/precancer, skin cancer with removals, back fusion with hardware, T12 kyphoplasty, L knee arthroscopy/ACL repair, total L knee arthroplasty, epidural back injections, colonoscopy, hemorrhoidectomy. Past Anesthesia/Blood Transfusion Reactions: No Reported Reaction, Family History of Problems w/ Anesthesia, Motion Sickness Additional Past Anesthesia/Blood Transfusion Reaction / Comment(s): "brother was awake during whole surgery" Past Psychological History: No Psychological Hx Reported Smoking Status: Second hand smoke exposure Past Alcohol Use History: None Reported Past Drug Use History: None Reported - Past Family History Mother Family Medical History: Cancer Additional Family Medical History / Comment(s): Metastatic breast cancer. Father Family Medical History: Cancer Additional Family Medical History / Comment(s): Lung cancer General Exam Limitations: no limitations General appearance: alert, in no apparent distress Head exam: Present: normocephalic Eye exam: Present: normal appearance Respiratory exam: Present: normal lung sounds bilaterally Cardiovascular Exam: Present: regular rate, normal rhythm GI/Abdominal exam: Present: soft. Absent: tenderness Extremities exam: Present: normal inspection Back exam: Present: other (Patient does have small incision of the posterior ribs near The 10th rib with mild active oozing blood) Neurological exam: Present: alert Psychiatric exam: Present: normal affect, normal mood Skin exam: Present: normal color Course Vital Signs 10/03/20 15:08 Temperature 99.1 F Pulse Rate 69 Respiratory 20 Rate Blood Pressure 135/73 O2 Sat by Pulse 100 Oximetry Medical Decision Making - Medical Decision Making Case was discussed with practitioner Andrew Morgan as well as Dr. Coley. Dr. Coley would like patient to be admitted to medicine and they will do procedure tomorrow. Patient updated. Disposition Clinical Impression: Hemorrhage from open wound of chest wall Disposition: ADMITTED IP TO THIS HOSP Is patient prescribed a controlled substance at d/c from ED?: No Referrals: Maikel Johnson MD [Primary Care Provider] - 1-2 days Decision Time: 16:09
[2020-10-03] MEDS ORDERED: NALOXONE 0.4 MG/ML 1 ML VIAL IV PRN (16:10)
[2020-10-03] MEDS ORDERED: SILVER NITRATE APPLICATOR 1 EACH STICK..EA. TOPICAL STA (16:15)
[2020-10-03 16:26] LABS: Anisocytosis Slight; Basophils # (A) 0.2 k/uL (0-0.2); Basophils % (A) 1 %; Eosinophils # (A) 0.5 k/uL (0-0.7); Eosinophils % (A) 4 %; HGB 9.7 gm/dL (11.4-16.0); Hypochromasia Slight; Lymphocytes # (A) 2.7 k/uL (1.0-4.8); Lymphocytes % (A) 19 %; MCH 29.9 pg (25.0-35.0); MCHC 32.3 g/dL (31.0-37.0); MCV 92.6 fL (80.0-100.0); Mean Platelet Volume 7.9; Monocytes # (A) 1.8 k/uL (0-1.0); Monocytes % (A) 12 %; Neutrophils % (A) 61 %; Platelet Count 266 k/uL (150-450); RBC 3.24 m/uL (3.80-5.40); RDW 16.2 % (11.5-15.5); WBC 14.8 k/uL (3.8-10.6)
[2020-10-03 16:31] LABS: INR 0.9 (<1.2)
[2020-10-03] MEDS ORDERED: MORPHINE SULFATE 4 MG/ML SYRINGE IVP STA (16:33)
[2020-10-03 16:41] LABS: Partial Thromboplastin Time 21.2 sec (22.0-30.0)
--- NOTE | 2020-10-03 16:45 | P.GSCN ---
History of Present Illness Consult date: 10/03/20 Reason for Consult: Hemorrhage from previous RAFIQ drain site. Requesting physician: Raji Urban History of present illness: This is a 65-year-old female patient who is followed by Dr. Maikel Johnson on an outpatient basis. 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 Status post her fall she subsequently developed a hematoma to her right lateral chest and underwent a I&D of her chest wall hematoma on 09/17/[address] Dionisio Coley. She was recently seen in the office by Dr. Coley and her RAFIQ drain was removed. The patient reports since the RAFIQ drain has been removed she has had a continuous loose of serosanguineous drainage from her RAFIQ site. On September 28 she had presented to the emergency department on recommendations from her home health care nurse due to the leaking of blood through her dressing which she was changing 2-3 times a day. At that time she was discharged home with a pressure dressing in place. She denies any recent fever, chills, nausea, vomiting, diarrhea, constipation, headache, weakness, hemoptysis or hematemesis. She does report that she has some chest wall pain to the area at times. Today 10/03/2020 she presented to the emergency department with similar symptoms as her previous visit with some complaints of a continued ooze of blood from her right chest wall RAFIQ drain site. She reports that there has been some blood clots expressed from the area. Subsequently due to the continued complaints of bleeding from the right chest RAFIQ drain site, a consult was placed to Dr. Dionisio Coley from cardiothoracic surgery for further evaluation and treatment recommendations. Review of Systems A 14 point review of systems was completed and was negative except as mentioned in the HPI. Past Medical History Past Medical History: Asthma, Cancer, COPD, GERD/Reflux, Hyperlipidemia, Pneumonia, Respiratory Disorder, Sleep Apnea/CPAP/BIPAP, Thyroid Disorder Additional Past Medical History / Comment(s): recent admission r/t hematoma chest wall from 06/28/20 fall with R sided rib fractures then later found she had also fractured her R hip, Bilateral hemidiaghramatic paralysis/elevation/weakness, chronic hypoxic respiratory failure with home oxygen at 5L/NC ATC, JAREN but does not tolerate device, tracheobronchitis, agammaglobinemia-pt gives herself hyzentra injections every 2 weeks, adrenal insufficiency, endocarditis, anemia, hiatal hernia, "borderline diabetes", chronic low back pain, DDD, osteoporosis, fractured vertabra x2, chronic pain syndrome, essential tremors, basal cell skin cancer with removals, hypothyroid. History of Any Multi-Drug Resistant Organisms: None Reported Past Surgical History: Adenoidectomy, Appendectomy, Back Surgery, Breast Surgery, Cholecystectomy, Hysterectomy, Joint Replacement, Tonsillectomy Additional Past Surgical History / Comment(s): R breast bx, bilateral breast reduction/precancer, skin cancer with removals, back fusion with hardware, T12 kyphoplasty, L knee arthroscopy/ACL repair, total L knee arthroplasty, epidural back injections, colonoscopy, hemorrhoidectomy. Status post right chest I&D of hematoma. Past Anesthesia/Blood Transfusion Reactions: No Reported Reaction, Family History of Problems w/ Anesthesia, Motion Sickness Additional Past Anesthesia/Blood Transfusion Reaction / Comm: "brother was awake during whole surgery" Past Psychological History: No Psychological Hx Reported Smoking Status: Second hand smoke exposure Past Alcohol Use History: None Reported Past Drug Use History: None Reported - Past Family History Mother Family Medical History: Cancer Additional Family Medical History / Comment(s): Metastatic breast cancer. Father Family Medical History: Cancer Additional Family Medical History / Comment(s): Lung cancer Medications and Allergies Home Medications Medication Instructions Recorded Confirmed Type Albuterol Nebulized [Ventolin 2.5 mg INHALATION RT-QID PRN 06/28/20 09/28/20 History Nebulized] Alendronate Sodium [Fosamax] 70 mg PO WE 06/28/20 09/28/20 History Baclofen 10 mg PO QID PRN 06/28/20 09/28/20 History Budesonide/Formoterol Fumarate 2 puff INHALATION RT-BID 06/28/20 09/28/20 History [Symbicort 160-4.5 Mcg Inhaler] Buprenorphine HCl [Belbuca] 300 mcg BC BID 06/28/20 09/28/20 History Gabapentin [Neurontin] 300 mg PO TID 06/28/20 09/28/20 History Levothyroxine Sodium [Tirosint-Carly] 200 mcg SL AC-BRKFST 06/28/20 09/28/20 History Meclizine [Antivert] 25 mg PO TID PRN 06/28/20 09/28/20 History Mirtazapine [Remeron] 30 mg PO HS 06/28/20 09/28/20 History Montelukast [Singulair] 10 mg PO HS 06/28/20 09/28/20 History Rosuvastatin [Crestor] 10 mg PO HS 06/28/20 09/28/20 History Sulfamethox-Tmp 800-160Mg [Bactrim 1 tab PO MOWEFR 06/28/20 09/28/20 History DS 800-160 mg] Topiramate [Topamax] 100 mg PO BID 06/28/20 09/28/20 History predniSONE 5 mg PO DAILY@1200 06/28/20 09/28/20 History rOPINIRole HCL [Requip] 2 mg PO HS 06/28/20 09/28/20 History traMADol HCl [Ultram] 50 mg PO TID PRN 06/28/20 09/28/20 History Benzonatate [Tessalon Perles] 200 mg PO TID PRN 09/05/20 09/28/20 History Levothyroxine Sodium [Tirosint-Carly] 100 mcg [facility]-BRKFST 09/05/20 09/28/20 History Ondansetron Odt [Zofran ODT] 8 mg PO Q8HR PRN 09/05/20 09/28/20 History Primidone [Mysoline] 25 mg PO TID 09/05/20 09/28/20 History Hyszentra Infusion 1 dose SQ Q14D 09/13/20 09/28/20 History DULoxetine HCL [Cymbalta] 30 mg PO HS 09/28/20 09/28/20 History Allergies Allergy/AdvReac Type Severity Reaction Status Date / Time aspirin Allergy Rash/Hives Verified 09/28/20 13:46 bee pollen Allergy Anaphylaxis Verified 09/28/20 13:46 cefdinir [From Omnicef] Allergy Anaphylaxis Verified 09/28/20 13:46 clarithromycin [From Biaxin] Allergy Anaphylaxis Verified 09/28/20 13:46 ibuprofen [From Advil] Allergy Anaphylaxis Verified 09/28/20 13:46 Iodinated Contrast Media Allergy SWELLING Verified 09/28/20 13:46 [Iodinated Contrast Media - OF THROAT IV Dye] iodine Allergy Anaphylaxis Verified 09/28/20 13:46 omalizumab [From Xolair] Allergy Anaphylaxis Verified 09/28/20 13:46 prochlorperazine edisylate Allergy Rash/Hives Verified 09/28/20 13:46 [From Compazine] prochlorperazine maleate Allergy Rash/Hives Verified 09/28/20 13:46 [From Compazine] shellfish derived Allergy Anaphylaxis Verified 09/28/20 13:46 Penicillins AdvReac Dyspnea Verified 09/28/20 13:46 Surgical - Exam Vital Signs Temp Pulse Resp BP Pulse Ox 99.1 F 69 20 135/73 100 10/03/20 15:08 10/03/20 15:08 10/03/20 15:08 10/03/20 15:08 10/03/20 15:08 - General no distress, moderate pain (To her right chest), chronically ill - Eyes PERRL, normal ocular movement, no icteric - ENT normal pinna, normal nares, normal mucosa, no congestion, decreased hearing (Hearing aid to her right ear) - Neck Neck is supple, no JVD. no masses, no bruits, trachea midline, no venous distension - Respiratory Lung sounds are essentially clear throughout with few scattered expiratory wheezes, diminished bilateral bases. Respirations are symmetrical and nonlabored. 5 L nasal cannula of oxygen. - Cardiovascular Regular rhythm and rate. S1 and S2 present, negative for S3, gallop or murmur. No edema present. - Abdomen Abdomen is soft, nontender and nondistended. Active bowel sounds present in all 4 abdominal quadrants. No guarding or rigidity. - Genitourinary Deferred - Rectum Deferred - Integumentary Dressing in place to her right lateral chest old RAFIQ drain site. Scant serosanguineous drainage. no rash, no abnormal pigmentation - Neurologic Cranial nerves II through XII intact. No focal or motor deficits. - Musculoskeletal Moves all 4 extremities with equal strength. - Psychiatric oriented to time, oriented to person, oriented to place, speech is normal, memory intact Assessment and Plan Assessment: 1. Bleeding from her right chest old RAFIQ drain site 2. Anemia with hemoglobin 9.7, likely secondary to above 3. Recent chest wall hematoma status post fall, and status post I&D of the chest wall hematoma on 09/17/2020 4. Recent fall from standing with multiple rib fractures right chest in June 2020 5. 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 Asthma 7. Hypertension 8. Hyperlipidemia 9. Hypothyroid 10. Lifetime nonsmoker Plan: The patient was seen and examined at her bedside in the emergency room Department. Her chart diagnostics were reviewed. Her case was discussed in detail with Dr. Dionisio Coley from cardiothoracic surgery. The patient will be admitted to the hospital for further evaluation. Medical management per primary care service. She will be placed nothing by mouth after midnight. Dr. Coley will irrigate the site in the morning and further evaluate. More recommendations to follow based on patient's clinical course. Monitor labs including CBC results. Thank you for this consult and we look forward to working with you in the care of this patient. Time with Patient: Greater than 30
[2020-10-03] MEDS: SODIUM CHLORIDE 0.9% 1,000 ML IV SCH (16:49)
--- NOTE | 2020-10-03 17:18 | XR ---
EXAMINATION TYPE: XR ribs RT w pa chest xray DATE OF EXAM: 10/03/2020 COMPARISON: Correlation made with CT scan of the chest from 06/28/2020. HISTORY: Fall. TECHNIQUE: Multiple views of the chest were obtained. FINDINGS: There are rib fractures involving per second and third ribs and these appear new. There are fractures associated with fourth fifth ribs were seen on prior examination from the 2019. There is n o pleural effusion on the right side. No pneumothorax is seen on the right side. There is linear opacity at the left lung base which may represent atelectasis/consolidation. There is left costophrenic angle blunting. The findings may be related to chronic lung disease on the left. IMPRESSION: New fractures seen involving first, second, and third ribs. Old healed fractures involvin g fourth and fifth ribs are noted. No pneumothorax. No significant pneumothorax. Slight haziness of t he right lateral chest may suggest mild pulmonary contusion.
[2020-10-03] MEDS ORDERED: MIRTAZAPINE 15 MG TAB PO SCH (23:02)
[2020-10-03] MEDS ORDERED: DULoxetine HCL 30 MG CAPSULE.DR PO SCH (23:03)
[2020-10-03] MEDS: GABAPENTIN 100 MG CAP PO SCH (23:38)
[2020-10-04] MEDS: BUPRENORPHINE HCL 300 MCG MISCELLANE SCH ×2 (00:13→09:29)
[2020-10-04] MEDS: SODIUM CHLORIDE 0.9% 1,000 ML IV SCH (05:30)
[2020-10-04] MEDS ORDERED: SILVER NITRATE APPLICATOR 1 EACH STICK..EA. TOPICAL ONE (07:00)
[2020-10-04] MEDS ORDERED: LEVOTHYROXINE 100 MCG TAB PO SCH ×2 (07:30)
[2020-10-04 08:30] VITALS: PULSE 60
--- NOTE | 2020-10-04 08:39 | P.OP ---
Date of Procedure: 10/04/20 Preoperative Diagnosis: Chest wall hematoma Postoperative Diagnosis: Same Procedure(s) Performed: Silver nitrate application to wound Anesthesia: none Surgeon: Dionisio Coley Pathology: none sent Indications for Procedure: 65-year-old female with previous fall and fractured ribs. Following this she developed a large chest wall hematoma. This was treated conservatively initially but did not resolve and the patient had many complaints. Ultimately it was decided to incise and drain the area. This was performed and the patient was discharged home with a drain. After a period of 1 week the drainage was minimal and serosanguineous and the drain was removed. Patient complains that since then she is had further bloody drainage from the wound. She presented to the emergency department yesterday. There was some bloody drainage from the drain site. She was admitted to the hospital with plans to reassess in the morning. Overnight the patient's dressing had a quarter-sized spot of bloody drainage and was otherwise completely clean. There was no bladder or drainage that could be expressed from the wound. Operative Findings: There was a small area posteriorly under the skin which accepted a silver nitrate stick. Description of Procedure: Silver nitrate sticks were danced through the drain opening and there was a approximately 3 x 3 cm subcutaneous area that the sticks could be advanced into. 45 sticks were used to completely treat this area. Patient tolerated the procedure well until the very end when she began to complain of burning pain. At that point we stopped and a dry sterile dressing was applied.
[2020-10-04] MEDS ORDERED: Buprenorphine Hcl [Belbuca] 300 MCG Film MISCELLANE SCH (09:00)
[2020-10-04] MEDS ORDERED: TOPIRAMATE 100 MG TAB PO SCH (09:00)
[2020-10-04] MEDS ORDERED: PRIMIDONE 50 MG TAB PO SCH (09:00)
[2020-10-04] MEDS ORDERED: GABAPENTIN 100 MG CAP PO SCH (09:00)
[2020-10-04] MEDS ORDERED: ACETAMINOPHEN TAB 325 MG TAB PO PRN (09:10)
--- NOTE | 2020-10-04 09:12 | P.PN ---
Subjective Progress Note Date: 10/04/20 Principal diagnosis: Bleeding from her right chest old RAFIQ drain site, mild anemia. 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 Coley, she was in no acute distress. Denies pain or shortness of breath. Dressing to right drain site removed, approximately a quarter size amount of blood present on dressing, not saturating through the dressing. Patient states last time this dressing was changed was last night. Dr. Coley did utilize silver nitrate sticks through the draining opening, no further drainage present, dry sterile dressing was applied. Patient did begin to complain of burning pain at the end of the procedure, otherwise no complaints Objective - Vital Signs Vital signs: Vital Signs Temp 97.7 F 10/04/20 07:10 Pulse 62 10/04/20 07:10 Resp 20 10/04/20 07:10 BP 109/73 10/04/20 07:10 Pulse Ox 100 10/04/20 07:10 Intake & Output 10/03/20 10/04/20 10/04/20 18:59 06:59 18:59 Weight 62.142 kg - Constitutional General appearance: Present: cooperative, no acute distress - Respiratory Details: Lungs sounds diminished bilaterally with faint expiratory wheezes present. Respirations even, nonlabored. Currently on 5 L nasal cannula with oxygen saturation 100%. - Cardiovascular Details: S1, S2 present. Regular rate and rhythm. Palpable peripheral pulses bilaterally. No edema present. No calf pain or tenderness noted. - Gastrointestinal Gastrointestinal Comment(s): Abdomen soft, nontender, nondistended. Active bowel sounds present 4 quadrants. - Genitourinary Genitourinary Comment(s): Continues to void - Integumentary Integumentary Comment(s): Skin is warm and dry. Clean, dry dressing reapplied after procedure to old RAFIQ drain site - Neurologic Neurologic: Present: CNII-XII intact - Musculoskeletal Musculoskeletal: Present: strength equal bilaterally - Psychiatric Psychiatric: Present: A&O x's 3 - Allied health notes Allied health notes reviewed: nursing - Labs CBC & Chem 7: 03/10/21 15:58 Labs: Abnormal Lab Results - Last 24 Hours (Table) 10/03/20 10/03/20 Range/Units 15:58 15:58 WBC 14.8 H (3.8-10.6) k/uL RBC 3.24 L (3.80-5.40) m/uL Hgb 9.7 L (11.4-16.0) gm/dL Hct 30.0 L (34.0-46.0) % RDW 16.2 H (11.5-15.5) % Neutrophils # 9.0 H (1.3-7.7) k/uL Monocytes # 1.8 H (0-1.0) k/uL APTT 21.2 L (22.0-30.0) sec Assessment and Plan Assessment: 1. Bleeding from her right chest old RAFIQ drain site 2. Mild anemia with hemoglobin 9.7, likely secondary to above 3. Recent chest wall hematoma status post fall, and status post I&D of the chest wall hematoma on 09/17/2020 4. Recent fall from standing with multiple rib fractures right chest in June 2020 5. 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 Asthma 7. Hypertension 8. Hyperlipidemia 9. Hypothyroid 10. Lifetime nonsmoker Plan: 1. Silver nitrate sticks were advanced through the old RAFIQ draining opening to cauterize any bleeding. Clean, dry dressing reapplied 2. Pain control with current medication regimen 3. May change dressing as necessary 4. Medical management of other comorbidities per primary care service 5. From cardiothoracic surgery standpoint patient may be discharged to home whenever okay with other services Time with Patient: Greater than 30
[2020-10-04] MEDS: GABAPENTIN 100 MG CAP PO SCH (09:32)
[2020-10-04] MEDS ORDERED: traMADol 50 MG TAB PO PRN (10:31)
[2020-10-04] MEDS ORDERED: predniSONE 5 MG TAB PO SCH (12:00)
[2020-10-04 12:36] VITALS: BP 109/67; RESP 17; TEMP 97.6
[2020-10-04] MEDS ORDERED: ATORVASTATIN 20 MG TAB PO SCH (21:00)
[2020-10-04] MEDS ORDERED: DULoxetine HCL 30 MG CAPSULE.DR PO SCH (21:00)
[2020-10-04] MEDS ORDERED: MIRTAZAPINE 15 MG TAB PO SCH (21:00)
[2020-10-04] MEDS ORDERED: MONTELUKAST 10 MG TAB PO SCH (21:00)
--- NOTE | 2020-10-04 23:08 | P.HPIM ---
History of Present Illness H&P Date: 10/04/20 Chief Complaint: Draining from the right chest wound History of presenting complaint: This is a 65-year-old patient who follows with Dr. Maikel Johnson. Chronic stable medical conditions include hypothyroid, GERD, hyperlipidemia, bilateral hemidiaphragmatic paralysis, hiatal hernia, agammaglobebemia, chronic hypoxic respiratory failure on home oxygen 5 L, chronic low back pain, essential tremor. Does use a walker , lives with her brother. fall from standing in June 2020 with multiple rib fractures on her right side. Status post her fall she subsequently developed a hematoma to her right lateral chest and underwent a I&D of her chest wall hematoma on 09/17/[address] Dionisio Coley. She was recently seen in the office by Dr. Coley and her RAFIQ drain was removed. The patient reports since the RAFIQ drain has been removed she has had a continuous loose of serosanguineous drainage from her RAFIQ site. On September 28 she had presented to the emergency department on recommendations from her home health care nurse due to the leaking of blood through her dressing which she was changing 2-3 times a day. At that time she was discharged home with a pressure dressing in place. She denies any recent fever, chills, nausea, vomiting, diarrhea, constipation, headache, weakness, hemoptysis or hematemesis. She does report that she has some chest wall pain to the area at times. Today 10/03/2020 she presented to the emergency department with similar symptoms as her previous visit with some complaints of a continued ooze of blood from her right chest wall RAFIQ drain site. She reports that there has been some blood clots expressed from the area. Subsequently due to the continued complaints of bleeding from the right chest RAFIQ drain site, . Review of systems: GEN.: Tired EYES: None HEENT: None NECK: None RESPIRATORY: None CARDIOVASCULAR: None GASTROINTESTINAL: None GENITOURINARY: None MUSCULOSKELETAL: Chronic low back pain LYMPHATICS: None HEMATOLOGICAL: None PSYCHIATRY: None NEUROLOGICAL: Does use a walker Past medical history: Asthma, GERD, hyperlipidemia, obstructive sleep apnea, hypothyroid, chronic bilateral hemidiaphragmatic paralysis, hiatal hernia, basal cell carcinoma, home oxygen 5 L, and hepatitis, osteoporosis, fracture of the spine, agammaglobebemia, essential tremor, fractured ribs Social history: Does not smoke or drink alcohol. Is a , lives with her brother, uses a walker Physical examination: VITAL SIGNS: 97.7, 60, 16, 130/81, 100% on 5 L GENERAL: Reclining in bed, awake EYES: Pupils equal. Conjunctiva normal. HEENT: External appearance of nose and ears normal, oral cavity dry mucous membranes NECK: JVD not raised; masses not palpable. HEART: First and second heart sounds are normal; no edema. LUNGS: Respiratory rate normal diminished breath sounds dressing over the right chest wall. ABDOMEN: Soft, nontender, liver spleen not palpable, no masses palpable. PSYCH: AO - times three. Mood and affect normal NEUROLOGICAL: Cranial nerves grossly intact; no facial asymmetry, power and sensation grossly intact,. LYMPHATICS: No lymph nodes palpable in the axilla and neck INVESTIGATIONS, reviewed in the clinical context: WBC 14.8 hemoglobin 9.7 platelets 266 Coronavirus [PCR]-not detected X-ray ribs on the right side-new fractures seen involving the first second and third ribs. Or acute fractures involving the fourth fifth ribs. Assessment and plan: -Right chest wall hematoma that had a drain was drained previously now coming with some bloody discharge. Cardiothoracic surgery consulted -New rib fractures in the right first second and third ribs. Old healed fractures involving the fourth and fifth ribs-follow with cardiothoracic surgery. - moderate persistent asthma, continue bronchodilators -Hypothyroidism., Continue levothyroxin -GERD, Tums when necessary -Hyperlipidemia, on Crestor -Chronic bilateral hemidiaphragmatic paralysis -Hiatal hernia -Chronic hypoxic respiratory failure on home oxygen 5 L from bilateral feliz- diaphragmatic paralysis -Chronic low back pain, from arthritis, continue pain medications -Restless leg syndrome, continue Requip Past Medical History Past Medical History: Asthma, Cancer, COPD, GERD/Reflux, Hyperlipidemia, Pneumonia, Respiratory Disorder, Sleep Apnea/CPAP/BIPAP, Thyroid Disorder Additional Past Medical History / Comment(s): Hematoma chest wall from 06/28/20 fall with R sided rib fractures then later found she had also fractured her R hip, Bilateral hemidiaghramatic paralysis/elevation/weakness, chronic hypoxic respiratory failure with home oxygen at 5L/NC ATC, JAREN but does not tolerate device, tracheobronchitis, agammaglobinemia-now takes oral med for this, adrenal insufficiency, endocarditis, anemia, hiatal hernia, "borderline diabetes", chronic low back pain, DDD, osteoporosis, fractured vertabra x2, chronic pain syndrome, RLS, essential tremors, basal cell skin cancer with removals, hypothyroid, urine incontinence, odteopenia. History of Any Multi-Drug Resistant Organisms: None Reported Past Surgical History: Adenoidectomy, Appendectomy, Back Surgery, Breast Surgery, Cholecystectomy, Hysterectomy, Joint Replacement, Tonsillectomy Additional Past Surgical History / Comment(s): R breast bx, bilateral breast reduction/precancer, skin cancer with removals, back fusion with hardware, T12 kyphoplasty, L knee arthroscopy/ACL repair, total L knee arthroplasty, epidural back injections, colonoscopy, hemorrhoidectomy. Status post right chest I&D of hematoma. Past Anesthesia/Blood Transfusion Reactions: No Reported Reaction, Family History of Problems w/ Anesthesia, Motion Sickness Additional Past Anesthesia/Blood Transfusion Reaction / Comment(s): "brother was awake during whole surgery" Smoking Status: Second hand smoke exposure - Past Family History Mother Family Medical History: Cancer Additional Family Medical History / Comment(s): Metastatic breast cancer. Father Family Medical History: Cancer Additional Family Medical History / Comment(s): Lung cancer Medications and Allergies Home Medications Medication Instructions Recorded Confirmed Type Albuterol Nebulized [Ventolin 2.5 mg INHALATION RT-QID PRN 06/28/20 10/03/20 History Nebulized] Alendronate Sodium [Fosamax] 70 mg PO WE 06/28/20 10/03/20 History Baclofen 10 mg PO QID PRN 06/28/20 10/03/20 History Budesonide/Formoterol Fumarate 2 puff INHALATION RT-BID 06/28/20 10/03/20 History [Symbicort 160-4.5 Mcg Inhaler] Buprenorphine HCl [Belbuca] 300 mcg BC BID 06/28/20 10/03/20 History Gabapentin [Neurontin] 300 mg PO TID 06/28/20 10/03/20 History Levothyroxine Sodium [Tirosint-Carly] 200 mcg SL AC-BRKFST 06/28/20 10/03/20 Hi story Meclizine [Antivert] 25 mg PO TID PRN 06/28/20 10/03/20 History Mirtazapine [Remeron] 30 mg PO HS 06/28/20 10/03/20 History Montelukast [Singulair] 10 mg PO HS 06/28/20 10/03/20 History Rosuvastatin [Crestor] 10 mg PO HS 06/28/20 10/03/20 History Sulfamethox-Tmp 800-160Mg [Bactrim 1 tab PO MOWEFR@2100 06/28/20 10/03/20 History DS 800-160 mg] Topiramate [Topamax] 100 mg PO BID 06/28/20 10/03/20 History predniSONE 5 mg PO DAILY@1200 06/28/20 10/03/20 History rOPINIRole HCL [Requip] 2 mg PO HS 06/28/20 10/03/20 History traMADol HCl [Ultram] 50 mg PO TID PRN 06/28/20 10/03/20 History Benzonatate [Tessalon Perles] 200 mg PO TID PRN 09/05/20 10/03/20 History Levothyroxine Sodium [Tirosint-Carly] 100 mcg SL AC-BRKFST 09/05/20 10/03/20 History Ondansetron Odt [Zofran ODT] 8 mg PO Q8HR PRN 09/05/20 10/03/20 History Primidone [Mysoline] 25 mg PO TID 09/05/20 10/03/20 History Hyszentra Infusion 1 dose SQ Q14D 09/13/20 10/03/20 History DULoxetine HCL [Cymbalta] 30 mg PO HS 09/28/20 10/03/20 History Allergies Allergy/AdvReac Type Severity Reaction Status Date / Time aspirin Allergy Rash/Hives Verified 10/03/20 16:27 bee pollen Allergy Anaphylaxis Verified 10/03/20 16:27 cefdinir [From Omnicef] Allergy Anaphylaxis Verified 10/03/20 16:27 clarithromycin [From Biaxin] Allergy Anaphylaxis Verified 10/03/20 16:27 ibuprofen [From Advil] Allergy Anaphylaxis Verified 10/03/20 16:27 Iodinated Contrast Media Allergy SWELLING Verified 10/03/20 16:27 [Iodinated Contrast Media - OF THROAT IV Dye] iodine Allergy Anaphylaxis Verified 10/03/20 16:27 omalizumab [From Xolair] Allergy Anaphylaxis Verified 10/03/20 16:27 prochlorperazine edisylate Allergy Rash/Hives Verified 10/03/20 16:27 [From Compazine] prochlorperazine maleate Allergy Rash/Hives Verified 10/03/20 16:27 [From Compazine] shellfish derived Allergy Anaphylaxis Verified 10/03/20 16:27 Penicillins AdvReac Dyspnea Verified 10/03/20 16:27 Physical Exam Vitals: Vital Signs Temp Pulse Pulse Resp BP BP Pulse Ox 10/04/20 08:25 97.7 F 60 16 130/81 100 10/04/20 07:10 97.7 F 62 20 109/73 100 10/04/20 05:05 61 20 107/77 100 10/04/20 02:13 98.0 F 62 20 103/65 100 10/04/20 00:00 67 16 114/72 100 10/03/20 23:00 73 16 99/75 100 10/03/20 22:00 69 16 110/79 100 10/03/20 21:00 72 16 104/71 100 10/03/20 20:00 71 16 124/82 100 10/03/20 19:00 68 16 105/65 100 10/03/20 18:37 72 18 105/65 99 10/03/20 18:00 149/88 100 10/03/20 17:00 149/88 10/03/20 16:00 135/73 100 10/03/20 15:12 100 10/03/20 15:08 99.1 F 69 20 135/73 100 Intake and Output 10/03/20 10/04/20 10/04/20 22:59 06:59 14:59 Other: Weight 62.142 kg 62.142 kg Results CBC & Chem 7: 10/03/20 15:58 Labs: Abnormal Lab Results - Last 24 Hours (Table) 10/03/20 10/03/20 Range/Units 15:58 15:58 WBC 14.8 H (3.8-10.6) k/uL RBC 3.24 L (3.80-5.40) m/uL Hgb 9.7 L (11.4-16.0) gm/dL Hct 30.0 L (34.0-46.0) % RDW 16.2 H (11.5-15.5) % Neutrophils # 9.0 H (1.3-7.7) k/uL Monocytes # 1.8 H (0-1.0) k/uL APTT 21.2 L (22.0-30.0) sec Thrombosis Risk Factor Assmnt - Choose All That Apply Any of the Below Risk Factors Present?: Yes Other Risk Factors: Yes Each Risk Factor Represents 2 Points: Age 61-74 years, Malignancy Other congenital or acquired thrombophilia - If yes, enter type in comment: No Thrombosis Risk Factor Assessment Total Risk Factor Score: 4 Thrombosis Risk Factor Assessment Level: Moderate Risk
--- NOTE | 2020-10-04 23:11 | P.DS ---
Providers Date of admission: 10/03/20 16:10 Expected date of discharge: 10/04/20 Attending physician: Prashant Castro Consults: 10/03/20 16:10 Consult Physician Urgent Consulting Provider: Dionisio Coley Consult Reason/Comments: hemorrhage Do you want consulting provider notified?: Already Contacted [facility]: Chief Complaint: Draining from the right chest wound History of presenting complaint: This is a 65-year-old patient who follows with Dr. Maikel Johnson. Chronic stable medical conditions include hypothyroid, GERD, hyperlipidemia, bilateral hemidiaphragmatic paralysis, hiatal hernia, agammaglobebemia, chronic hypoxic respiratory failure on home oxygen 5 L, chronic low back pain, essential tremor. Does use a walker , lives with her brother. fall from standing in June 2020 with multiple rib fractures on her right side. Status post her fall she subsequently developed a hematoma to her right lateral chest and underwent a I&D of her chest wall hematoma on 09/17/[address] Dionisio Coley. She was recently seen in the office by Dr. Coley and her RAFIQ drain was removed. The patient reports since the RAFIQ drain has been removed she has had a continuous loose of serosanguineous drainage from her RAFIQ site. On September 28 she had presented to the emergency department on recommendations from her home health care nurse due to the leaking of blood through her dressing which she was changing 2-3 times a day. At that time she was discharged home with a pressure dressing in place. She denies any recent fever, chills, nausea, vomiting, diarrhea, constipation, headache, weakness, hemoptysis or hematemesis. She does report that she has some chest wall pain to the area at times. Today 10/03/2020 she presented to the emergency department with similar symptoms as her previous visit with some complaints of a continued ooze of blood from her right chest wall RAFIQ drain site. She reports that there has been some blood clots expressed from the area. Subsequently due to the continued complaints of bleeding from the right chest RAFIQ drain site, . Dr. Dionisio Coley did use silver nitrate sticks to cauterize inside the hematoma site on the right chest wall. Dressing was placed on top of that. Patient was cleared for discharge. Patient will follow up with them in the office Consultation: Dr. Dionisio Coley from cardiothoracic surgery Past medical history: Asthma, GERD, hyperlipidemia, obstructive sleep apnea, hypothyroid, chronic bilateral hemidiaphragmatic paralysis, hiatal hernia, basal cell carcinoma, home oxygen 5 L, and hepatitis, osteoporosis, fracture of the spine, agammaglobebemia, essential tremor, fractured ribs Social history: Does not smoke or drink alcohol. Is a , lives with her brother, uses a walker Physical examination: VITAL SIGNS: 97.7, 60, 16, 130/81, 100% on 5 L GENERAL: Reclining in bed, awake EYES: Pupils equal. Conjunctiva normal. HEENT: External appearance of nose and ears normal, oral cavity dry mucous membranes NECK: JVD not raised; masses not palpable. HEART: First and second heart sounds are normal; no edema. LUNGS: Respiratory rate normal diminished breath sounds dressing over the right chest wall. ABDOMEN: Soft, nontender, liver spleen not palpable, no masses palpable. PSYCH: AO - times three. Mood and affect normal NEUROLOGICAL: Cranial nerves grossly intact; no facial asymmetry, power and sensation grossly intact,. LYMPHATICS: No lymph nodes palpable in the axilla and neck INVESTIGATIONS, reviewed in the clinical context: WBC 14.8 hemoglobin 9.7 platelets 266 Coronavirus [PCR]-not detected X-ray ribs on the right side-new fractures seen involving the first second and third ribs. Or acute fractures involving the fourth fifth ribs. Assessment and plan: -Right chest wall hematoma that had a drain was drained previously now coming with some bloody discharge. Cauterization with silver sticks was carried out. -New rib fractures in the right first second and third ribs. Old healed fractures involving the fourth and fifth ribs-follow with cardiothoracic surgery. -moderate persistent asthma, continue bronchodilators -Hypothyroidism., Continue levothyroxin -GERD, Tums when necessary -Hyperlipidemia, on Crestor -Chronic bilateral hemidiaphragmatic paralysis -Hiatal hernia -Chronic hypoxic respiratory failure on home oxygen 5 L from bilateral feliz- diaphragmatic paralysis -Chronic low back pain, from arthritis, continue pain medications -Restless leg syndrome, continue Requip Disposition: Home Plan - Discharge Summary Discharge Rx Participant: No New Discharge Prescriptions: Continue traMADol HCl [Ultram] 50 mg PO TID PRN PRN Reason: Pain Topiramate [Topamax] 100 mg PO BID Levothyroxine Sodium [Tirosint-Carly] 200 mcg SL AC-BRKFST rOPINIRole HCL [Requip] 2 mg PO HS predniSONE 5 mg PO DAILY@1200 Rosuvastatin [Crestor] 10 mg PO HS Montelukast [Singulair] 10 mg PO HS Mirtazapine [Remeron] 30 mg PO HS Meclizine [Antivert] 25 mg PO TID PRN PRN Reason: DIZZINESS Gabapentin [Neurontin] 300 mg PO TID Buprenorphine HCl [Belbuca] 300 mcg BC BID Baclofen 10 mg PO QID PRN PRN Reason: CRAMPS Alendronate Sodium [Fosamax] 70 mg PO WE Budesonide/Formoterol Fumarate [Symbicort 160-4.5 Mcg Inhaler] 2 puff INHALATION RT-BID Albuterol Nebulized [Ventolin Nebulized] 2.5 mg INHALATION RT-QID PRN PRN Reason: Shortness Of Breath Benzonatate [Tessalon Perles] 200 mg PO TID PRN PRN Reason: Cough Levothyroxine Sodium [Tirosint-Carly] 100 mcg SL AC-BRKFST Ondansetron Odt [Zofran ODT] 8 mg PO Q8HR PRN PRN Reason: Nausea Primidone [Mysoline] 25 mg PO TID Hyszentra Infusion 1 dose SQ Q14D DULoxetine HCL [Cymbalta] 30 mg PO HS No Action Sulfamethox-Tmp 800-160Mg [Bactrim DS 800-160 mg] 1 tab PO MOWEFR@2100 Discharge Medication List Albuterol Nebulized [Ventolin Nebulized] 2.5 mg INHALATION RT-QID PRN 06/28/20 [History] Alendronate Sodium [Fosamax] 70 mg PO WE 06/28/20 [History] Baclofen 10 mg PO QID PRN 06/28/20 [History] Budesonide/Formoterol Fumarate [Symbicort 160-4.5 Mcg Inhaler] 2 puff INHALATION RT-BID 06/28/20 [History] Buprenorphine HCl [Belbuca] 300 mcg BC BID 06/28/20 [History] Gabapentin [Neurontin] 300 mg PO TID 06/28/20 [History] Levothyroxine Sodium [Tirosint-Carly] 200 mcg SL AC-BRKFST 06/28/20 [History] Meclizine [Antivert] 25 mg PO TID PRN 06/28/20 [History] Mirtazapine [Remeron] 30 mg PO HS 06/28/20 [History] Montelukast [Singulair] 10 mg PO HS 06/28/20 [History] Rosuvastatin [Crestor] 10 mg PO HS 06/28/20 [History] Sulfamethox-Tmp 800-160Mg [Bactrim DS 800-160 mg] 1 tab PO MOWEFR@2100 06/28/20 [History] Topiramate [Topamax] 100 mg PO BID 06/28/20 [History] predniSONE 5 mg PO DAILY@1200 06/28/20 [History] rOPINIRole HCL [Requip] 2 mg PO HS 06/28/20 [History] traMADol HCl [Ultram] 50 mg PO TID PRN 06/28/20 [History] Benzonatate [Tessalon Perles] 200 mg PO TID PRN 09/05/20 [History] Levothyroxine Sodium [Tirosint-Carly] 100 mcg SL AC-BRKFST 09/05/20 [History] Ondansetron Odt [Zofran ODT] 8 mg PO Q8HR PRN 09/05/20 [History] Primidone [Mysoline] 25 mg PO TID 09/05/20 [History] Hyszentra Infusion 1 dose SQ Q14D 09/13/20 [History] DULoxetine HCL [Cymbalta] 30 mg PO HS 09/28/20 [History] Follow up Appointment(s)/Referral(s): Maikel Johnson MD [Primary Care Provider] - 1-2 days (Please call and make follow up appointment.) Dionisio Coley MD [STAFF PHYSICIAN] - As Needed (No need to make appt. with Dr. Coley unless needed.) Discharge Disposition: HOME SELF-CARE
== END 2020-10-04 13:58 | disposition home or self-care (01) ==
LOC: EC 15:07 → 4SSUR 16:10 → 5NMEDONC 10-04 05:13
PROVIDERS: ADMIT Hospitalist; ATTEND Hospitalist
DX: S20.219A Contusion of unspecified front wall of thorax, initial encounter (principal); S22.41XA Multiple fractures of ribs, right side, initial encounter for closed fracture; J45.40 Moderate persistent asthma, uncomplicated; E03.9 Hypothyroidism, unspecified; K21.9 Gastro-esophageal reflux disease without esophagitis; E78.5 Hyperlipidemia, unspecified; J98.6 Disorders of diaphragm; K44.9 Diaphragmatic hernia without obstruction or gangrene; J96.11 Chronic respiratory failure with hypoxia; I10 Essential (primary) hypertension; J44.9 Chronic obstructive pulmonary disease, unspecified; G47.33 Obstructive sleep apnea (adult) (pediatric); G25.0 Essential tremor; G25.81 Restless legs syndrome; G89.29 Other chronic pain; K75.9 Inflammatory liver disease, unspecified; J98.4 Other disorders of lung; Z98.1 Arthrodesis status; M81.0 Age-related osteoporosis without current pathological fracture; M19.90 Unspecified osteoarthritis, unspecified site; D64.9 Anemia, unspecified; W18.30XA Fall on same level, unspecified, initial encounter; Z77.22 Contact with and (suspected) exposure to environmental tobacco smoke (acute) (chronic); Z79.51 Long term (current) use of inhaled steroids; Z79.83 Long term (current) use of bisphosphonates; Z79.899 Other long term (current) drug therapy; Z80.1 Family history of malignant neoplasm of trachea, bronchus and lung; Z85.828 Personal history of other malignant neoplasm of skin; Z90.710 Acquired absence of both cervix and uterus; Z96.652 Presence of left artificial knee joint; Z99.81 Dependence on supplemental oxygen
CPT/HCPCS: 96361 ×2; 96374; 99285; 36415; 85025; 85610; 85730; 87635; 71101; 17250; G0378 ×3; J2270; J7512

== ENCOUNTER → 2020-10-16 | Outpatient (CLI) | payer MEDICARE ==
--- NOTE | 2020-10-16 13:45 | CT ---
EXAMINATION TYPE: CT chest wo con DATE OF EXAM: 10/16/2020 COMPARISON: Chest CT September 05, 2020 and older studies. HISTORY: abnormal chest xray at doctor's office, history of fall with hematoma CT DLP: 563 mGycm. Automated Exposure Control for Dose Reduction was Utilized. TECHNIQUE: CT scan of the thorax is performed without IV contrast. FINDINGS: LUNGS: Persistent low lung volumes with elevated left hemidiaphragm and left greater than right bibas ilar scarring and/or atelectasis. Trace right-sided pleural effusion on current study. No pneumothora x seen bilaterally. MEDIASTINUM: Lack of IV contrast is noted to limit evaluation for mediastinal and especially hilar ad enopathy. There are no definitive greater than 1 cm hilar or mediastinal lymph nodes. No cardiomega ly or pericardial effusion is seen. OTHER: Vertebroplasty at T12 level redemonstrated causing some artifact at level of adjacent spinal c anal. Moderate fecal prominence of visualized colon. Cholecystectomy clips redemonstrated. Subacute o r old multiple posterolateral right sided rib fractures and anterolateral right-sided rib fractures a re redemonstrated. IMPRESSION: Low lung volumes and elevated left hemidiaphragm with mild to moderate left greater than right bibasilar scarring and/or atelectasis. No significant change from prior studies.
== END | disposition home or self-care (01) ==
LOC: RADCTMAIN 12:59
PROVIDERS: ATTEND Nurse Practitioner Adult Health
DX: S20.20XD Contusion of thorax, unspecified, subsequent encounter (principal); J98.6 Disorders of diaphragm
CPT/HCPCS: 71250

== ENCOUNTER 2020-12-21 19:09 | Inpatient (IN) | payer MEDICARE ==
[2020-12-21 19:31] LABS: Glucose,Whole Blood 92 mg/dL (75-99)
[2020-12-21] MEDS ORDERED: NALOXONE 0.4 MG/ML 1 ML VIAL IVP STA (19:32)
--- NOTE | 2020-12-21 19:39 | ED ---
General Adult HPI - General Stated complaint: Weakness Time Seen by Provider: 12/21/20 19:11 - History of Present Illness Initial comments: Dictation was produced using [employer] dictation software. please excuse any grammatical, word or spelling errors. Chief Complaint: 65-year-old female brought to the emergency department for fall History of Present Illness: 65-year-old female she is brought to the emergency department for fall. Patient is a poor historian. Report was received from nursing received report from EMS. She allegedly had some falls at home. Patient is very sleepy and uncooperative. Unable to obtain review of systems secondary to mental status. PHYSICAL EXAM: General Impression: Sleepy, arousable however only with sternal rub HEENT: Normocephalic atraumatic, extra-ocular movements intact, pupils equal and reactive to light bilaterally, mucous membranes moist. Cardiovascular: Heart regular rate and rhythm Chest: no retractions, no tachypnea Abdomen: abdomen soft, non-tender, non-distended, no organomegaly Musculoskeletal: Pulses present and equal in all extremities, no peripheral edema Motor: no focal deficits noted Neurological: CN II-XII grossly intact, no focal motor or sensory deficits noted Skin: Abrasions over her bilateral upper extremities and lower extremities ED course: 65-year-old female brought to the emergency department for multiple falls. Patient is a 4 started. She is lethargic and very somnolent at the bedside. Point of care blood glucose is 92. Patient still very somnolent the bedside. Daughter at the bedside who makes her decisions reports that patient is a no code. She does not want any aggressive treatment including ventilatory support or CPR. Daughter reports that this is the patient's wish. Daughter reports that patient has extensive history of polysubstance abuse. It's multiple prescriptions for controlled substances. Daughter is not present but patient's clinical presentation at the moment. Patient be admitted for overdose. Laboratory evaluation obtained. CBC within acceptable limits. Coag panel is negative. Metabolic panel does not show any gap acidosis. Potassium slightly decreased at 3.0 given replacement. Urinalysis is negative. Toxicology screen is positive for barbiturates. Coronal virus is negative. [facility] records was obtained. Patient gets prescriptions for morphine, gabapentin, tramadol. Patient be admitted to [facility] for polysubstance overdose. Psychiatry consulted. EKG interpretation: Ventricular rate 53, sinus bradycardia,. Interval 96, QRS 102, QTC 487. No ND prolongation, no QTC prolongation, no ST or T-wave changes noted. Overall, this EKG is unremarkable - Related Data Home Medications Medication Instructions Recorded Confirmed Albuterol Nebulized [Ventolin 2.5 mg INHALATION RT-QID PRN 06/28/20 12/21/20 Nebulized] Alendronate Sodium [Fosamax] 70 mg PO WE 06/28/20 12/21/20 Baclofen 10 mg PO QID PRN 06/28/20 12/21/20 Budesonide/Formoterol Fumarate 2 puff INHALATION RT-BID 06/28/20 12/21/20 [Symbicort 160-4.5 Mcg Inhaler] Buprenorphine HCl [Belbuca] 300 mcg BC BID 06/28/20 12/21/20 Gabapentin [Neurontin] 300 mg PO TID 06/28/20 12/21/20 Levothyroxine Sodium [Tirosint-Carly] 200 mcg SL AC-BRKFST 06/28/20 12/21/20 Mirtazapine [Remeron] 30 mg PO HS 06/28/20 12/21/20 Montelukast [Singulair] 10 mg PO HS 06/28/20 12/21/20 Rosuvastatin [Crestor] 10 mg PO HS 06/28/20 12/21/20 Sulfamethox-Tmp 800-160Mg [Bactrim 1 tab PO MOWEFR@2100 06/28/20 12/21/20 DS 800-160 mg] Topiramate [Topamax] 100 mg PO BID 06/28/20 12/21/20 predniSONE 5 mg PO DAILY@1200 06/28/20 12/21/20 rOPINIRole HCL [Requip] 2 mg PO HS 06/28/20 12/21/20 traMADol HCl [Ultram] 50 mg PO TID PRN 06/28/20 12/21/20 Benzonatate [Tessalon Perles] 200 mg PO TID PRN 09/05/20 12/21/20 Primidone [Mysoline] 25 mg PO TID 09/05/20 12/21/20 Hys[facility]ra Infusion 1 dose SQ Q14D 09/13/20 12/21/20 DULoxetine HCL [Cymbalta] 30 mg PO HS 09/28/20 12/21/20 Ipratropium Nebulized [Atrovent 0.5 mg INHALATION RT-QID PRN 12/21/20 12/21/20 Nebulized 0.2 MG/ML] Allergies Allergy/AdvReac Type Severity Reaction Status Date / Time aspirin Allergy Rash/Hives Verified 12/21/20 21:15 bee pollen Allergy Anaphylaxis Verified 12/21/20 21:15 cefdinir [From Omnicef] Allergy Anaphylaxis Verified 12/21/20 21:15 clarithromycin [From Biaxin] Allergy Anaphylaxis Verified 12/21/20 21:15 ibuprofen [From Advil] Allergy Anaphylaxis Verified 12/21/20 21:15 Iodinated Contrast Media Allergy SWELLING Verified 12/21/20 21:15 [Iodinated Contrast Media - OF THROAT IV Dye] iodine Allergy Anaphylaxis Verified 12/21/20 21:15 omalizumab [From Xolair] Allergy Anaphylaxis Verified 12/21/20 21:15 prochlorperazine edisylate Allergy Rash/Hives Verified 12/21/20 21:15 [From Compazine] prochlorperazine maleate Allergy Rash/Hives Verified 12/21/20 21:15 [From Compazine] shellfish derived Allergy Anaphylaxis Verified 12/21/20 21:15 Penicillins AdvReac Dyspnea Verified 12/21/20 21:15 Review of Systems ROS Statement: Those systems with pertinent positive or pertinent negative responses have been documented in the HPI. ROS Other: All systems not noted in ROS Statement are negative. Past Medical History Past Medical History: Asthma, Cancer, COPD, GERD/Reflux, Hyperlipidemia, Pneumonia, Respiratory Disorder, Sleep Apnea/CPAP/BIPAP, Thyroid Disorder Additional Past Medical History / Comment(s): Hematoma chest wall from 06/28/20 fall with R sided rib fractures then later found she had also fractured her R hip, Bilateral hemidiaghramatic paralysis/elevation/weakness, chronic hypoxic respiratory failure with home oxygen at 5L/NC ATC, JAREN but does not tolerate device, tracheobronchitis, agammaglobinemia-now takes oral med for this, adrenal insufficiency, endocarditis, anemia, hiatal hernia, "borderline diabetes", chronic low back pain, DDD, osteoporosis, fractured vertabra x2, chronic pain syndrome, RLS, essential tremors, basal cell skin cancer with removals, hypothyroid, urine incontinence, odteopenia. History of Any Multi-Drug Resistant Organisms: None Reported Past Surgical History: Adenoidectomy, Appendectomy, Back Surgery, Breast Surgery, Cholecystectomy, Hysterectomy, Joint Replacement, Tonsillectomy Additional Past Surgical History / Comment(s): R breast bx, bilateral breast reduction/precancer, skin cancer with removals, back fusion with hardware, T12 kyphoplasty, L knee arthroscopy/ACL repair, total L knee arthroplasty, epidural back injections, colonoscopy, hemorrhoidectomy. Status post right chest I&D of hematoma. Past Anesthesia/Blood Transfusion Reactions: No Reported Reaction, Family History of Problems w/ Anesthesia, Motion Sickness Additional Past Anesthesia/Blood Transfusion Reaction / Comment(s): "brother was awake during whole surgery" Smoking Status: Second hand smoke exposure - Past Family History Mother Family Medical History: Cancer Additional Family Medical History / Comment(s): Metastatic breast cancer. Father Family Medical History: Cancer Additional Family Medical History / Comment(s): Lung cancer Course Vital Signs 12/21/20 12/21/20 12/21/20 19:32 19:55 20:13 Pulse Rate 50 L 52 L Respiratory 10 L 12 10 L Rate Blood Pressure 121/69 150/80 O2 Sat by Pulse 100 100 Oximetry Medical Decision Making - Lab Data Result diagrams: 12/21/20 19:58 12/21/20 19:58 Lab Results 12/21/20 12/21/20 12/21/20 Range/Units 19:30 19:58 19:58 WBC 13.7 H (3.8-10.6) k/uL RBC 3.79 L (3.80-5.40) m/uL Hgb 11.0 L (11.4-16.0) gm/dL Hct 32.8 L (34.0-46.0) % MCV 86.6 (80.0-100.0) fL MCH 28.9 (25.0-35.0) pg MCHC 33.4 (31.0-37.0) g/dL RDW 21.3 H (11.5-15.5) % Plt Count 152 (150-450) k/uL MPV 7.9 Neutrophils % 68 % Lymphocytes % 13 % Monocytes % 13 % Eosinophils % 3 % Basophils % 1 % Neutrophils # 9.4 H (1.3-7.7) k/uL Lymphocytes # 1.7 (1.0-4.8) k/uL Monocytes # 1.7 H (0-1.0) k/uL Eosinophils # 0.4 (0-0.7) k/uL Basophils # 0.1 (0-0.2) k/uL Anisocytosis Moderate Microcytosis Slight PT 10.6 (9.0-12.0) sec INR 1.0 (<1.2) APTT 20.3 L (22.0-30.0) sec Sodium (137-145) mmol/L Potassium (3.5-5.1) mmol/L Chloride (98-107) mmol/L Carbon Dioxide (22-30) mmol/L Anion Gap mmol/L BUN (7-17) mg/dL Creatinine (0.52-1.04) mg/dL Est GFR (CKD-EPI)AfAm (>60 ml/min/1.73 sqM) Est GFR (CKD-EPI)NonAf (>60 ml/min/1.73 sqM) Glucose (74-99) mg/dL POC Glucose (mg/dL) 92 (75-99) mg/dL POC Glu Biostatistics Professor ID Hirgo, Admon Plasma Lactic Acid Carlos (0.7-2.0) mmol/L Calcium (8.4-10.2) mg/dL Magnesium (1.6-2.3) mg/dL Total Bilirubin (0.2-1.3) mg/dL AST (14-36) U/L ALT (4-34) U/L Alkaline Phosphatase (38-126) U/L Ammonia (<30) umol/L Creatine Kinase (30-135) U/L Troponin I (0.000-0.034) ng/mL Total Protein (6.3-8.2) g/dL Albumin (3.5-5.0) g/dL Urine Color Urine Appearance (Clear) Urine pH (5.0-8.0) Ur Specific [place] (1.001-1.035) Urine Protein (Negative) Urine Glucose (UA) (Negative) Urine Ketones (Negative) Urine Blood (Negative) Urine Nitrite (Negative) Urine Bilirubin (Negative) Urine Urobilinogen (<2.0) mg/dL Ur Leukocyte Esterase (Negative) Urine RBC (0-5) /hpf Urine WBC (0-5) /hpf Ur Squamous Epith Cells (0-4) /hpf Urine Bacteria (None) /hpf Hyaline Casts (0-2) /lpf Urine Mucus (None) /hpf Urine Opiates Screen (NotDetected) Ur Oxycodone Screen (NotDetected) Urine Methadone Screen (NotDetected) Ur Propoxyphene Screen (NotDetected) Ur Barbiturates Screen (NotDetected) U Tricyclic Antidepress (NotDetected) Ur Phencyclidine Scrn (NotDetected) Ur Amphetamines Screen (NotDetected) U Methamphetamines Scrn (NotDetected) U Benzodiazepines Scrn (NotDetected) Urine Cocaine Screen (NotDetected) U Marijuana (THC) Screen (NotDetected) Serum Alcohol mg/dL Coronavirus (PCR) (Not Detectd) 12/21/20 12/21/20 12/21/20 Range/Units 19:58 19:58 19:58 WBC (3.8-10.6) k/uL RBC (3.80-5.40) m/uL Hgb (11.4-16.0) gm/dL Hct (34.0-46.0) % MCV (80.0-100.0) fL MCH (25.0-35.0) pg MCHC (31.0-37.0) g/dL RDW (11.5-15.5) % Plt Count (150-450) k/uL MPV Neutrophils % % Lymphocytes % % Monocytes % % Eosinophils % % Basophils % % Neutrophils # (1.3-7.7) k/uL Lymphocytes # (1.0-4.8) k/uL Monocytes # (0-1.0) k/uL Eosinophils # (0-0.7) k/uL Basophils # (0-0.2) k/uL Anisocytosis Microcytosis PT (9.0-12.0) sec INR (<1.2) APTT (22.0-30.0) sec Sodium 139 (137-145) mmol/L Potassium 3.0 L (3.5-5.1) mmol/L Chloride 100 (98-107) mmol/L Carbon Dioxide 33 H (22-30) mmol/L Anion Gap 6 mmol/L BUN 20 H (7-17) mg/dL Creatinine 1.33 H (0.52-1.04) mg/dL Est GFR (CKD-EPI)AfAm 48 (>60 ml/min/1.73 sqM) Est GFR (CKD-EPI)NonAf 42 (>60 ml/min/1.73 sqM) Glucose 107 H (74-99) mg/dL POC Glucose (mg/dL) (75-99) mg/dL POC Glu Biostatistics Professor ID Plasma Lactic Acid Carlos 0.9 (0.7-2.0) mmol/L Calcium 8.5 (8.4-10.2) mg/dL Magnesium 2.0 (1.6-2.3) mg/dL Total Bilirubin 0.3 (0.2-1.3) mg/dL AST 79 H (14-36) U/L ALT 88 H (4-34) U/L Alkaline Phosphatase 66 (38-126) U/L Ammonia <9 (<30) umol/L Creatine Kinase 260 H (30-135) U/L Troponin I (0.000-0.034) ng/mL Total Protein 7.2 (6.3-8.2) g/dL Albumin 4.3 (3.5-5.0) g/dL Urine Color Light Yellow Urine Appearance Cloudy H (Clear) Urine pH 7.0 (5.0-8.0) Ur Specific [place] 1.013 (1.001-1.035) Urine Protein Trace H (Negative) Urine Glucose (UA) Negative (Negative) Urine Ketones Negative (Negative) Urine Blood Negative (Negative) Urine Nitrite Negative (Negative) Urine Bilirubin Negative (Negative) Urine Urobilinogen <2.0 (<2.0) mg/dL Ur Leukocyte Esterase Negative (Negative) Urine RBC 2 (0-5) /hpf Urine WBC 1 (0-5) /hpf Ur Squamous Epith Cells <1 (0-4) /hpf Urine Bacteria Rare H (None) /hpf Hyaline Casts 27 H (0-2) /lpf Urine Mucus Rare H (None) /hpf Urine Opiates Screen Not Detected (NotDetected) Ur Oxycodone Screen Not Detected (NotDetected) Urine Methadone Screen Not Detected (NotDetected) Ur Propoxyphene Screen Not Detected (NotDetected) Ur Barbiturates Screen Detected H (NotDetected) U Tricyclic Antidepress Not Detected (NotDetected) Ur Phencyclidine Scrn Not Detected (NotDetected) Ur Amphetamines Screen Not Detected (NotDetected) U Methamphetamines Scrn Not Detected (NotDetected) U Benzodiazepines Scrn Not Detected (NotDetected) Urine Cocaine Screen Not Detected (NotDetected) U Marijuana (THC) Screen Not Detected (NotDetected) Serum Alcohol <10 mg/dL Coronavirus (PCR) (Not Detectd) 12/21/20 12/21/20 Range/Units 19:58 19:58 WBC (3.8-10.6) k/uL RBC (3.80-5.40) m/uL Hgb (11.4-16.0) gm/dL Hct (34.0-46.0) % MCV (80.0-100.0) fL MCH (25.0-35.0) pg MCHC (31.0-37.0) g/dL RDW (11.5-15.5) % Plt Count (150-450) k/uL MPV Neutrophils % % Lymphocytes % % Monocytes % % Eosinophils % % Basophils % % Neutrophils # (1.3-7.7) k/uL Lymphocytes # (1.0-4.8) k/uL Monocytes # (0-1.0) k/uL Eosinophils # (0-0.7) k/uL Basophils # (0-0.2) k/uL Anisocytosis Microcytosis PT (9.0-12.0) sec INR (<1.2) APTT (22.0-30.0) sec Sodium (137-145) mmol/L Potassium (3.5-5.1) mmol/L Chloride (98-107) mmol/L Carbon Dioxide (22-30) mmol/L Anion Gap mmol/L BUN (7-17) mg/dL Creatinine (0.52-1.04) mg/dL Est GFR (CKD-EPI)AfAm (>60 ml/min/1.73 sqM) Est GFR (CKD-EPI)NonAf (>60 ml/min/1.73 sqM) Glucose (74-99) mg/dL POC Glucose (mg/dL) (75-99) mg/dL POC Glu Biostatistics Professor ID Plasma Lactic Acid Carlos (0.7-2.0) mmol/L Calcium (8.4-10.2) mg/dL Magnesium (1.6-2.3) mg/dL Total Bilirubin (0.2-1.3) mg/dL AST (14-36) U/L ALT (4-34) U/L Alkaline Phosphatase (38-126) U/L Ammonia (<30) umol/L Creatine Kinase (30-135) U/L Troponin I <0.012 (0.000-0.034) ng/mL Total Protein (6.3-8.2) g/dL Albumin (3.5-5.0) g/dL Urine Color Urine Appearance (Clear) Urine pH (5.0-8.0) Ur Specific [place] (1.001-1.035) Urine Protein (Negative) Urine Glucose (UA) (Negative) Urine Ketones (Negative) Urine Blood (Negative) Urine Nitrite (Negative) Urine Bilirubin (Negative) Urine Urobilinogen (<2.0) mg/dL Ur Leukocyte Esterase (Negative) Urine RBC (0-5) /hpf Urine WBC (0-5) /hpf Ur Squamous Epith Cells (0-4) /hpf Urine Bacteria (None) /hpf Hyaline Casts (0-2) /lpf Urine Mucus (None) /hpf Urine Opiates Screen (NotDetected) Ur Oxycodone Screen (NotDetected) Urine Methadone Screen (NotDetected) Ur Propoxyphene Screen (NotDetected) Ur Barbiturates Screen (NotDetected) U Tricyclic Antidepress (NotDetected) Ur Phencyclidine Scrn (NotDetected) Ur Amphetamines Screen (NotDetected) U Methamphetamines Scrn (NotDetected) U Benzodiazepines Scrn (NotDetected) Urine Cocaine Screen (NotDetected) U Marijuana (THC) Screen (NotDetected) Serum Alcohol mg/dL Coronavirus (PCR) Not Detected (Not Detectd) Disposition Clinical Impression: Overdose Disposition: ADMITTED IP TO THIS [facility] Condition: Fair Referrals: Maikel Johnson MD [Primary Care Provider] - 1-2 days
[2020-12-21 20:08] LABS: Anisocytosis Moderate; Basophils # (A) 0.1 k/uL (0-0.2); Basophils % (A) 1 %; Eosinophils # (A) 0.4 k/uL (0-0.7); Eosinophils % (A) 3 %; HCT 32.8 % (34.0-46.0); Lymphocytes # (A) 1.7 k/uL (1.0-4.8); Lymphocytes % (A) 13 %; MCH 28.9 pg (25.0-35.0); MCHC 33.4 g/dL (31.0-37.0); MCV 86.6 fL (80.0-100.0); Mean Platelet Volume 7.9; Microcytosis Slight; Monocytes # (A) 1.7 k/uL (0-1.0); Monocytes % (A) 13 %; Neutrophils # (A) 9.4 k/uL (1.3-7.7); Neutrophils % (A) 68 %; Platelet Count 152 k/uL (150-450); RBC 3.79 m/uL (3.80-5.40); RDW 21.3 % (11.5-15.5); WBC 13.7 k/uL (3.8-10.6)
[2020-12-21 20:18] LABS: ALT 88 U/L (4-34); AST 79 U/L (14-36); African American GFR (CKD) 48 (>60 ml/min/1.73 sqM); Albumin 4.3 g/dL (3.5-5.0); Alcohol <10 mg/dL; Alkaline Phosphatase 66 U/L (38-126); Anion Gap 6 mmol/L; Blood Urea Nitrogen 20 mg/dL (7-17); Calcium 8.5 mg/dL (8.4-10.2); Carbon Dioxide 33 mmol/L (22-30); Chloride 100 mmol/L (98-107); Creatine Kinase 260 U/L (30-135); Glucose 107 mg/dL (74-99); Lactic Acid, Venous 0.9 mmol/L (0.7-2.0); Non-African American GFR(CKD) 42 (>60 ml/min/1.73 sqM); Sodium 139 mmol/L (137-145); Total Bilirubin 0.3 mg/dL (0.2-1.3); Total Protein 7.2 g/dL (6.3-8.2)
[2020-12-21] MEDS ORDERED: DIPH,PERTUS(ACELL)TETVAC-LF 0.5 ML VIAL IM ONE (20:19)
[2020-12-21 20:31] LABS: Partial Thromboplastin Time 20.3 sec (22.0-30.0); Prothrombin Time 10.6 sec (9.0-12.0)
[2020-12-21 20:43] LABS: Appearance,Urine Cloudy (Clear); Bacteria,Urine Rare /hpf; Bilirubin,Urine Negative (Negative); Blood,Urine Negative (Negative); Color,Urine Light Yellow; Glucose,Urine (UA) Negative (Negative); Hyaline Casts,Urine 27 /lpf (0-2); Ketones,Urine Negative (Negative); Leukocyte Esterase,Urine Negative (Negative); Mucus,Urine Rare /hpf; Nitrite,Urine Negative (Negative); Protein,Urine Trace (Negative); RBC,Urine 2 /hpf (0-5); Specific Gravity,Urine 1.013 (1.001-1.035); Squamous Epithelial Cell,Urine <1 /hpf (0-4); Urobilinogen,Urine <2.0 mg/dL (<2.0); WBC,Urine 1 /hpf (0-5)
[2020-12-21 20:54] LABS: Amphetamine Screen,Urine Not Detected (NotDetected); Barbiturate Screen,Urine Detected (NotDetected); Benzodiazepines Screen,Urine Not Detected (NotDetected); Cocaine Screen,Urine Not Detected (NotDetected); Methadone Screen, Urine Not Detected (NotDetected); Opiate Screen,Urine Not Detected (NotDetected); Oxycodone Screen, Urine Not Detected (NotDetected); Phencyclidine Screen,Urine Not Detected (NotDetected); Tricyclic Antidepressant,Urine Not Detected (NotDetected); Urn Cannabinoid Scrn Not Detected (NotDetected)
[2020-12-21] MEDS: POTASSIUM CHLORIDE 20 MEQ in WATER FOR INJECTION 1 100ML.BAG IVPB SCH ×2 (21:09→21:10)
--- NOTE | 2020-12-21 21:15 | XR ---
EXAMINATION TYPE: XR chest 1V portable DATE OF EXAM: 12/21/2020 COMPARISON: 06/28/2020 HISTORY: Altered mental status. Fall. TECHNIQUE: Single view FINDINGS: There is poor inspiration with elevation of the diaphragms. There is atelectasis at the lopez g bases. There are old right-sided rib fractures. There is no heart failure. There are chest leads. IMPRESSION: Atelectasis at the lung bases and poor inspiration similar to old exam.
--- NOTE | 2020-12-21 21:24 | CT ---
EXAMINATION TYPE: CT brain cspine wo con DATE OF EXAM: 12/21/2020 COMPARISON: 06/28/2020 HISTORY: Fall, AMS CT DLP: 1359.3 mGycm Automated exposure control for dose reduction was used. Images obtained of the brain and cervical spine without contrast. The cervical vertebra have normal alignment. Disc spaces are fairly normal. Posterior elements are in tact. Facet joints are intact. There is no compression fracture. There is osteopenia. There are multi ple right upper old posterior healed rib fractures. Ventricles have normal size. There is no mass effect nor midline shift. There is no sign of intracran ial hemorrhage. Sella turcica appears normal. Calvarium is intact. IMPRESSION: Negative CT scan of the brain. Negative CT scan cervical spine. No adverse change.
[2020-12-21] MEDS ORDERED: NALOXONE 0.4 MG/ML 1 ML VIAL IV PRN (21:43)
[2020-12-21] MEDS: SODIUM CHLORIDE 0.9% 1,000 ML IV SCH (22:55)
[2020-12-21 23:51] LABS: Acetaminophen <10.0 ug/mL; Salicylate <1.0 mg/dL
--- NOTE | 2020-12-22 01:46 | P.HPIM ---
History of Present Illness H&P Date: 12/21/20 Chief Complaint: Frequent falling, overdosing 65-year-old female with past medical history significant for asthma on home oxygen, hypothyroid, polysubstance abuse, obstructive sleep apnea, Patient comes in for frequent falling at home and overdosing on prescription medications patient is somnolent unable to provide any meaningful history. History obtained by discussing the case with the ED physician who spoke with EMS who brought the patient and talked to the patient daughter over the phone who provides the history seems like patient has been having frequent falling at home daughter was suspecting overdosing on prescription medications (morphine, gabapentin, tramadol )which she has done in the past. Patient daughter indicated that patient wishes us to be a no code she does not want any aggressive measures like CPR or vent support In the ED blood work showed blood glucose of 92, low potassium, mild anemia, acute kidney injury with elevated creatinine slightly. Patient responded briefly to Narcan in the ED. CT of the head and spine showed no acute pathology or fractures Review of Systems ROS unobtainable: due to mental status Past Medical History Past Medical History: Asthma, Cancer, COPD, GERD/Reflux, Hyperlipidemia, Pneumonia, Respiratory Disorder, Sleep Apnea/CPAP/BIPAP, Thyroid Disorder Additional Past Medical History / Comment(s): Hematoma chest wall from 06/28/20 fall with R sided rib fractures then later found she had also fractured her R hip, Bilateral hemidiaghramatic paralysis/elevation/weakness, chronic hypoxic respiratory failure with home oxygen at 5L/NC ATC, JAREN but does not tolerate device, tracheobronchitis, agammaglobinemia-now takes oral med for this, adrenal insufficiency, endocarditis, anemia, hiatal hernia, "borderline diabetes", chronic low back pain, DDD, osteoporosis, fractured vertabra x2, chronic pain syndrome, RLS, essential tremors, basal cell skin cancer with removals, hypothyroid, urine incontinence, odteopenia. History of Any Multi-Drug Resistant Organisms: None Reported Past Surgical History: Adenoidectomy, Appendectomy, Back Surgery, Breast Surger y, Cholecystectomy, Hysterectomy, Joint Replacement, Tonsillectomy Additional Past Surgical History / Comment(s): R breast bx, bilateral breast reduction/precancer, skin cancer with removals, back fusion with hardware, T12 kyphoplasty, L knee arthroscopy/ACL repair, total L knee arthroplasty, epidural back injections, colonoscopy, hemorrhoidectomy. Status post right chest I&D of hematoma. Past Anesthesia/Blood Transfusion Reactions: No Reported Reaction, Family History of Problems w/ Anesthesia, Motion Sickness Additional Past Anesthesia/Blood Transfusion Reaction / Comment(s): "brother was awake during whole surgery" Smoking Status: Second hand smoke exposure - Past Family History Mother Family Medical History: Cancer Additional Family Medical History / Comment(s): Metastatic breast cancer. Father Family Medical History: Cancer Additional Family Medical History / Comment(s): Lung cancer Medications and Allergies Home Medications Medication Instructions Recorded Confirmed Type Albuterol Nebulized [Ventolin 2.5 mg INHALATION RT-QID PRN 06/28/20 12/21/20 History Nebulized] Alendronate Sodium [Fosamax] 70 mg PO WE 06/28/20 12/21/20 History Baclofen 10 mg PO QID PRN 06/28/20 12/21/20 History Budesonide/Formoterol Fumarate 2 puff INHALATION RT-BID 06/28/20 12/21/20 History [Symbicort 160-4.5 Mcg Inhaler] Buprenorphine HCl [Belbuca] 300 mcg BC BID 06/28/20 12/21/20 History Gabapentin [Neurontin] 300 mg PO TID 06/28/20 12/21/20 History Levothyroxine Sodium [Tirosint-Carly] 200 mcg SL AC-BRKFST 06/28/20 12/21/20 History Mirtazapine [Remeron] 30 mg PO HS 06/28/20 12/21/20 History Montelukast [Singulair] 10 mg PO HS 06/28/20 12/21/20 History Rosuvastatin [Crestor] 10 mg PO HS 06/28/20 12/21/20 History Sulfamethox-Tmp 800-160Mg [Bactrim 1 tab PO MOWEFR@2100 06/28/20 12/21/20 History DS 800-160 mg] Topiramate [Topamax] 100 mg PO BID 06/28/20 12/21/20 History predniSONE 5 mg PO DAILY@1200 06/28/20 12/21/20 History rOPINIRole HCL [Requip] 2 mg PO HS 06/28/20 12/21/20 History traMADol HCl [Ultram] 50 mg PO TID PRN 06/28/20 12/21/20 History Benzonatate [Tessalon Perles] 200 mg PO TID PRN 09/05/20 12/21/20 History Primidone [Mysoline] 25 mg PO TID 09/05/20 12/21/20 History Hyszentra Infusion 1 dose SQ Q14D 09/13/20 12/21/20 History DULoxetine HCL [Cymbalta] 30 mg PO HS 09/28/20 12/21/20 History Ipratropium Nebulized [Atrovent 0.5 mg INHALATION RT-QID PRN 12/21/20 12/21/20 History Nebulized 0.2 MG/ML] Allergies Allergy/AdvReac Type Severity Reaction Status Date / Time aspirin Allergy Rash/Hives Verified 12/21/20 21:15 bee pollen Allergy Anaphylaxis Verified 12/21/20 21:15 cefdinir [From Omnicef] Allergy Anaphylaxis Verified 12/21/20 21:15 clarithromycin [From Biaxin] Allergy Anaphylaxis Verified 12/21/20 21:15 ibuprofen [From Advil] Allergy Anaphylaxis Verified 12/21/20 21:15 Iodinated Contrast Media Allergy SWELLING Verified 12/21/20 21:15 [Iodinated Contrast Media - OF THROAT IV Dye] iodine Allergy Anaphylaxis Verified 12/21/20 21:15 omalizumab [From Xolair] Allergy Anaphylaxis Verified 12/21/20 21:15 prochlorperazine edisylate Allergy Rash/Hives Verified 12/21/20 21:15 [From Compazine] prochlorperazine maleate Allergy Rash/Hives Verified 12/21/20 21:15 [From Compazine] shellfish derived Allergy Anaphylaxis Verified 12/21/20 21:15 Penicillins AdvReac Dyspnea Verified 12/21/20 21:15 Physical Exam Vitals: Vital Signs Pulse Resp BP Pulse Ox 12/21/20 20:13 52 L 10 L 150/80 100 12/21/20 19:55 12 12/21/20 19:32 50 L 10 L 121/69 100 Intake and Output 12/21/20 12/21/20 12/21/20 06:59 14:59 22:59 Other: Weight 65.771 kg Constitutional: Patient is somnolent moans to painful stimulation, on supplemental oxygen nasal cannula oxygen saturation 100% Eyes: Anicteric sclerae, moist conjunctiva, Pupils equal round reactive to light ENMT: NC/ patient has multiple bruising of different age all over her body Oropharynx clear, no erythema, or exudates Neck: Supple, no masses, or JVD No carotid bruits No thyromegaly Lungs: Clear to auscultation Clear to percussion Normal respiratory effort, no accessory muscle use Cardiovascular: Heart regular in rate and rhythm, No murmurs, gallops, or rubs No peripheral edema Abdominal: Soft Nontender, no guarding, rebound or rigidity Abdomen moving with respiration Normoactive bowel sounds No hepatomegaly, No splenomegaly No palpable mass No abdominal wall hernia noted Skin: Normal temperature, tone, texture, turgor No induration No subcutaneous nodules Diffuse bruising all over her body small sizes different age No ulcers Extremities: No digital cyanosis No clubbing Pedal pulses intact and symmetrical Radial pulses intact and symmetrical No calf tenderness Psychiatric: Patient is somnolent only moans to painful stimulation Neuro unable to assess patient is not cooperative with physical exam she is somnolent Lymphatics: no palpable cervical or supraclavicular , or inguinal lymph nodes Results CBC & Chem 7: 12/21/20 19:58 12/21/20 19:58 Labs: Abnormal Lab Results - Last 24 Hours (Table) 12/21/20 12/21/20 12/21/20 Range/Units 19:58 19:58 19:58 WBC 13.7 H (3.8-10.6) k/uL RBC 3.79 L (3.80-5.40) m/uL Hgb 11.0 L (11.4-16.0) gm/dL Hct 32.8 L (34.0-46.0) % RDW 21.3 H (11.5-15.5) % Neutrophils # 9.4 H (1.3-7.7) k/uL Monocytes # 1.7 H (0-1.0) k/uL APTT 20.3 L (22.0-30.0) sec Potassium (3.5-5.1) mmol/L Carbon Dioxide (22-30) mmol/L BUN (7-17) mg/dL Creatinine (0.52-1.04) mg/dL Glucose (74-99) mg/dL AST (14-36) U/L ALT (4-34) U/L Creatine Kinase (30-135) U/L Urine Appearance Cloudy H (Clear) Urine Protein Trace H (Negative) Urine Bacteria Rare H (None) /hpf Hyaline Casts 27 H (0-2) /lpf Urine Mucus Rare H (None) /hpf Ur Barbiturates Screen Detected H (NotDetected) 12/21/20 Range/Units 19:58 WBC (3.8-10.6) k/uL RBC (3.80-5.40) m/uL Hgb (11.4-16.0) gm/dL Hct (34.0-46.0) % RDW (11.5-15.5) % Neutrophils # (1.3-7.7) k/uL Monocytes # (0-1.0) k/uL APTT (22.0-30.0) sec Potassium 3.0 L (3.5-5.1) mmol/L Carbon Dioxide 33 H (22-30) mmol/L BUN 20 H (7-17) mg/dL Creatinine 1.33 H (0.52-1.04) mg/dL Glucose 107 H (74-99) mg/dL AST 79 H (14-36) U/L ALT 88 H (4-34) U/L Creatine Kinase 260 H (30-135) U/L Urine Appearance (Clear) Urine Protein (Negative) Urine Bacteria (None) /hpf Hyaline Casts (0-2) /lpf Urine Mucus (None) /hpf Ur Barbiturates Screen (NotDetected) Assessment and Plan Assessment: Polysubstance abuse with overdose Acute kidney injury Mild anemia Hypokalemia Plan Close monitoring of vital signs CT of the head and spine reviewed no acute pathology Chest x-ray showed no acute pathology Replace electrolytes IV fluid hydration with normal saline Per ED doctor patient responded briefly to 1 dose of Narcan Psych evaluation Follow-up blood work CBC and electrolytes Check thyroid function Chronic conditions Moderate persistent asthma, DuoNeb's when necessary GERD Hyperlipidemia Obstructive sleep apnea Hypothyroid, resume home meds Verify home meds Surrogate decision-maker: patient daughter CODE STATUS:no code DVT prophylaxis: mechanical Discussed with: Patient, ER Anticipated length of stay < than [address]: pending clinical course A total of 60 minutes was spent on the care of this complex patient more than 50% of the time was spent in counseling and care coordination.
[2020-12-22] MEDS ORDERED: LEVOTHYROXINE SODIUM PO SCH (07:30)
[2020-12-22] MEDS: SYMBICORT 160-4.5 MCG INHALER INHALATION SCH ×2 (08:00→20:30)
[2020-12-22 08:05] LABS: Anisocytosis Moderate; Basophils # (A) 0.2 k/uL (0-0.2); Basophils % (A) 1 %; Eosinophils # (A) 0.4 k/uL (0-0.7); Eosinophils % (A) 2 %; HCT 35.3 % (34.0-46.0); HGB 11.5 gm/dL (11.4-16.0); Hypochromasia Slight; Lymphocytes # (A) 1.9 k/uL (1.0-4.8); Lymphocytes % (A) 12 %; MCH 28.9 pg (25.0-35.0); MCHC 32.5 g/dL (31.0-37.0); MCV 88.9 fL (80.0-100.0); Mean Platelet Volume 7.9; Microcytosis Slight; Monocytes # (A) 2.4 k/uL (0-1.0); Monocytes % (A) 15 %; Neutrophils % (A) 67 %; Platelet Count 170 k/uL (150-450); RBC 3.97 m/uL (3.80-5.40); RDW 21.1 % (11.5-15.5); WBC 16.5 k/uL (3.8-10.6)
[2020-12-22 08:22] LABS: ALT 73 U/L (4-34); AST 66 U/L (14-36); African American GFR (CKD) 71 (>60 ml/min/1.73 sqM); Albumin 4.4 g/dL (3.5-5.0); Alkaline Phosphatase 58 U/L (38-126); Anion Gap 6 mmol/L; Blood Urea Nitrogen 15 mg/dL (7-17); Calcium 8.5 mg/dL (8.4-10.2); Carbon Dioxide 34 mmol/L (22-30); Chloride 102 mmol/L (98-107); Glucose 84 mg/dL (74-99); Non-African American GFR(CKD) 62 (>60 ml/min/1.73 sqM); Potassium 4.2 mmol/L (3.5-5.1); Sodium 142 mmol/L (137-145); Total Bilirubin 0.2 mg/dL (0.2-1.3); Total Protein 7.2 g/dL (6.3-8.2)
[2020-12-22 09:37] LABS: T4, Free (Free Thyroxine) <0.07 ng/dL (0.78-2.19)
[2020-12-22] MEDS ORDERED: IPRATROPIUM 0.5 MG/2.5 ML NEBU INHALATION PRN (11:26)
--- NOTE | 2020-12-22 11:28 | P.PN ---
Subjective Progress Note Date: 12/22/20 Patient is awake and alert today. She denies having any complaints. She told me that she takes her medication as prescribed at home. No acute events overnight reported by nursing staff Objective - Vital Signs Vital signs: Vital Signs Temp 97 F L 12/22/20 06:25 Pulse 60 12/22/20 06:25 Resp 16 12/22/20 06:25 BP 137/77 12/22/20 06:25 Pulse Ox 96 12/22/20 06:25 Intake & Output 12/21/20 12/22/20 12/22/20 18:59 06:59 18:59 Weight 65.771 kg - Exam General: The patient is awake and alert, in no distress Eye: there is normal conjunctiva bilaterally. Neck: The neck is supple, there is no JVD. Cardiovascular: Normal S1-S2, no S3-S4, no murmurs. Respiratory: Lungs clear to auscultation bilaterally Gastrointestinal: Abdomen is soft, nontender Musculoskeletal: There is no pedal edema. Neurological:. Speech is normal. Skin: Skin is warm and dry - Labs CBC & Chem 7: 12/22/20 07:51 12/22/20 07:51 Labs: Abnormal Lab Results - Last 24 Hours (Table) 12/21/20 12/21/20 12/21/20 Range/Units 19:58 19:58 19:58 WBC 13.7 H (3.8-10.6) k/uL RBC 3.79 L (3.80-5.40) m/uL Hgb 11.0 L (11.4-16.0) gm/dL Hct 32.8 L (34.0-46.0) % RDW 21.3 H (11.5-15.5) % Neutrophils # 9.4 H (1.3-7.7) k/uL Monocytes # 1.7 H (0-1.0) k/uL APTT 20.3 L (22.0-30.0) sec Potassium (3.5-5.1) mmol/L Carbon Dioxide (22-30) mmol/L BUN (7-17) mg/dL Creatinine (0.52-1.04) mg/dL Glucose (74-99) mg/dL AST (14-36) U/L ALT (4-34) U/L Creatine Kinase (30-135) U/L TSH (0.465-4.680) mIU/L Free T4 (0.78-2.19) ng/dL Urine Appearance Cloudy H (Clear) Urine Protein Trace H (Negative) Urine Bacteria Rare H (None) /hpf Hyaline Casts 27 H (0-2) /lpf Urine Mucus Rare H (None) /hpf Ur Barbiturates Screen Detected H (NotDetected) 12/21/20 12/22/20 12/22/20 Range/Units 19:58 07:51 07:51 WBC 16.5 H (3.8-10.6) k/uL RBC (3.80-5.40) m/uL Hgb (11.4-16.0) gm/dL Hct (34.0-46.0) % RDW 21.1 H (11.5-15.5) % Neutrophils # 11.0 H (1.3-7.7) k/uL Monocytes # 2.4 H (0-1.0) k/uL APTT (22.0-30.0) sec Potassium 3.0 L (3.5-5.1) mmol/L Carbon Dioxide 33 H 34 H (22-30) mmol/L BUN 20 H (7-17) mg/dL Creatinine 1.33 H (0.52-1.04) mg/dL Glucose 107 H (74-99) mg/dL AST 79 H 66 H (14-36) U/L ALT 88 H 73 H (4-34) U/L Creatine Kinase 260 H (30-135) U/L TSH 60.500 H (0.465-4.680) mIU/L Free T4 <0.07 L (0.78-2.19) ng/dL Urine Appearance (Clear) Urine Protein (Negative) Urine Bacteria (None) /hpf Hyaline Casts (0-2) /lpf Urine Mucus (None) /hpf Ur Barbiturates Screen (NotDetected) Assessment and Plan Assessment: This is a 65-year-old female with past medical history noted below who was brought into the emergency room with worsening confusion. Patient was evaluated in the ER and admitted to the hospital for further management of her medical problems noted below. I had a prolonged conversation with her daughter Mandeep over the phone. Her daughter told me that patient does not take any of her regular medication other than her pain medication and gabapentin. She told me that often times she take extra pills trying ''to get high''. The daughter told me that she has a DURABLE POWER OF DRUG SAFETY ASSOCIATE. She said that her mother always denies taking any extra medications. She told me that she always finds bottles of her levothyroxine medicine that she never takes that he had her mom tells her that she is taking her medication as prescribed. She is very concerned about her mother's safety and would like her to go to a intermediate. 1. Acute toxo metabolic encephalopathy, probably secondary to polypharmacy. C omputed tomography scan of the head and cervical spine was unremarkable for acute findings. Urine toxicology screen in the ER unremarkable 2. Medication noncompliance and abuse of her Neurontin and tramadol prescription, psychiatry consulted by admitting physician for further evaluation and to determine if patient is able to make decisions 3. Acute kidney injury, resolved with IV fluid hydration 4. Hypokalemia, replaced 5. Hypothyroidism, thyroid function test significantly abnormal as patient is not taking her medications at home. 6. Chronic low back pain with prior back surgery 7. Underlying depression 8. DVT prophylaxis with subcu Lovenox
[2020-12-22] MEDS: ENOXAPARIN 40 MG/0.4 ML SYRINGE SQ SCH (13:05)
[2020-12-22] MEDS: LEVOTHYROXINE SODIUM PO SCH (13:06)
[2020-12-22] MEDS: predniSONE 5 MG TAB PO SCH (15:00)
[2020-12-22] MEDS: GABAPENTIN 100 MG CAP PO SCH ×2 (16:45→22:16)
[2020-12-22] MEDS: PRIMIDONE 50 MG TAB PO SCH ×2 (16:57→22:17)
[2020-12-22] MEDS: SODIUM CHLORIDE 0.9% 1,000 ML IV SCH (18:21)
[2020-12-22] MEDS: ATORVASTATIN 20 MG TAB PO SCH (22:16)
[2020-12-22] MEDS: DULoxetine HCL 30 MG CAPSULE.DR PO SCH (22:17)
[2020-12-22] MEDS: MONTELUKAST 10 MG TAB PO SCH (22:17)
[2020-12-22] MEDS: TOPIRAMATE 100 MG TAB PO SCH (22:18)
[2020-12-22] MEDS: MIRTAZAPINE 15 MG TAB PO SCH (22:18)
[2020-12-23] MEDS: traMADol 50 MG TAB PO PRN ×3 (04:03→20:24)
[2020-12-23] MEDS: LEVOTHYROXINE SODIUM PO SCH (08:09)
[2020-12-23] MEDS: ENOXAPARIN 40 MG/0.4 ML SYRINGE SQ SCH (08:12)
[2020-12-23] MEDS: GABAPENTIN 100 MG CAP PO SCH ×3 (08:12→20:25)
[2020-12-23] MEDS: TOPIRAMATE 100 MG TAB PO SCH ×2 (09:00→20:55)
[2020-12-23] MEDS: PRIMIDONE 50 MG TAB PO SCH ×3 (09:00→21:27)
[2020-12-23] MEDS: SYMBICORT 160-4.5 MCG INHALER INHALATION SCH ×2 (09:18→20:40)
[2020-12-23] MEDS: predniSONE 5 MG TAB PO SCH (12:13)
--- NOTE | 2020-12-23 12:19 | P.PN ---
Subjective Progress Note Date: 12/23/20 Patient is doing well today. She is awake and alert. No acute events overnight. She denies any suicidal thoughts or ideation. She told me that she never had problems with suicidal thoughts or ideation and never took her medications at home other than how prescribed. Her daughter otherwise who has a DURABLE POWER OF SALES REPRESENTATIVE SUPERVISOR report that patient has been taking extra pain medication and extra gabapentin. Her daughter wanted her to go to a custodial. Patient is adamant to refuse. Patient said that she is going home and only home. Objective - Vital Signs Vital signs: Vital Signs Temp 98.6 F 12/23/20 11:53 Pulse 83 12/23/20 11:53 Resp 18 12/23/20 11:53 BP 133/83 12/23/20 11:53 Pulse Ox 97 12/23/20 11:53 Intake & Output 12/22/20 12/23/20 12/23/20 18:59 06:59 18:59 Intake Total 1000 Balance 1000 Intake: Intake, IV Titration 0 Amount Sodium Chloride 0.9% 1, 0 000 ml @ 100 mls/hr IV . Q10H [facility] Rx#:[id number] Oral 1000 Other: Voiding Method Toilet Toilet Toilet Bedside Commode Bedside Commode Diaper Diaper Diaper - Exam General: The patient is awake and alert, in no distress Eye: there is normal conjunctiva bilaterally. Neck: The neck is supple, there is no JVD. Cardiovascular: Normal S1-S2, no S3-S4, no murmurs. Respiratory: Lungs clear to auscultation bilaterally Gastrointestinal: Abdomen is soft, nontender Musculoskeletal: There is no pedal edema. Neurological:. Speech is normal. Skin: Skin is warm and dry - Labs CBC & Chem 7: 12/22/20 07:51 12/22/20 07:51 Assessment and Plan Assessment: This is a 65-year-old female with past medical history noted below who was brought into the emergency room with worsening confusion. Patient was evaluated in the ER and admitted to the hospital for further management of her medical problems noted below. Yesterday, I had a prolonged conversation with her daughter Mandeep over the phone. Her daughter told me that patient does not take any of her regular medication other than her pain medication and gabapentin. She told me that often times she take extra pills trying ''to get high''. The daughter told me that she has a DURABLE POWER OF SALES REPRESENTATIVE SUPERVISOR. She said that her mother always denies taking any extra medications. She told me that she always finds bottles of her levothyroxine medicine that she never takes that he had her mom tells her that she is taking her medication as prescribed. She is very concerned about her mother's safety and would like her to go to a custodial. Awaiting psychiatry evaluation to determine if patient is able to make her own decisions about discharge home 1. Acute toxo metabolic encephalopathy, probably secondary to polypharmacy. Now resolved. Computed tomography scan of the head and cervical spine was unremarkable for acute findings. Urine toxicology screen in the ER unremarkable 2. Medication noncompliance and abuse of her Neurontin and tramadol pres cription, psychiatry consulted by admitting physician for further evaluation and to determine if patient is able to make decisions 3. Acute kidney injury, resolved with IV fluid hydration 4. Hypokalemia, replaced 5. Hypothyroidism, thyroid function test significantly abnormal as patient is not taking her medications at home. 6. Chronic low back pain with prior back surgery 7. Underlying depression 8. DVT prophylaxis with subcu Lovenox
--- NOTE | 2020-12-23 16:18 | P.CN ---
Psychiatric Consult - . Consult date: 12/23/20 Consult:: Reason for consultation: Overdose, and questionable suicidal behavior Identifying data: Patient is a 65-year-old female who currently lives by herself. The patient was seen while she was at the medical floor. Chief complaint and history of present illness: The patient with past medical history significant for asthma, hypothyroidism, polysubstance abuse, and obstructive sleep apnea who came [facility] of frequent overdosing on prescription medications. Patient presented to the hospital with severe cognitive impairment and brought in by EMS. The patient was admitted to medical floor because of reported overdose on narcotic medications. Patient's daughter Aileen who has DPOA reports that patient had frequent falling at home, and was told by the patient before that patient takes more than prescribed to get high including medications: Morphine, Neurontin, and tramadol". According to the patient's daughter, patient has history of psychiatric disorder and was treated for mental illness, and he used to see counselor in the past. Daughter shared with me that the patient had multiple dolls at home and she talks to them. Patient has no support at home and currently lives by herself. Based on evaluating the patient, she was alert and fully oriented, reports came to the hospital because she was dizzy and passed out but she couldn't explain why that happened. Patient was superficial in her answers and he denies overdosed on her medications. She denies any history of psychiatric diagnosis and reports the only time that she was seen by therapist was long time ago and she doesn't remember for what reason. When discussed with the patient that home medications including Cymbalta, she explained that taking Cymbalta for lung condition. Again the patient was superficial and generally denies psychiatric symptoms trying to get home because she was told that after psychiatric clearance she can go home. She denies depression, feeling hopeless or suicidal and he denies any auditory or visual hallucinations. Denies any paranoid ideation or delusions. Reports that she doesn't have dolls at home anymore and she give them away. She admitted for taking more than prescribed medications in the past and that was to get high. The daughter petitioned patient to come to the hospital stated that patient overdosed in the past and she is unable to live alone and he doesn't seem able to take care of her basic needs. Daughter reports that patient's brother with support her concerns about the patient's safety at home. Past psychiatric history: Previous psychiatric hospitalization: None reported Previous suicidal attempts: Patient denies previous psychiatric hospitalization or suicidal attempts. Previous psychiatric treatment: Patient denies previous psychiatric treatment, and reports taking Cymbalta for lung condition. Substance use history: Patient denies using tobacco products, drinking alcohol, or using any illicit drugs. Denies any history of substance use disorder treatment Family history of psychiatric illness: Denies any family history of mental illness, suicide, or addiction problems Brief social history: Patient currently lives by herself after her 3 years ago. She is currently unemployed on SSD, completed high school and some college education. She has 3 children. Denies any history of abuse. Mental status examination; Appearance: The patient appears older than, dressed in hospital gown,below average body built, no specific features. Gait/posture:lying in bed Attitude and behavior: guarded, not fully engaged, not cooperative, intermittent eye contact. Motor activity: Decreased psychomotor activity Speech:normal rate, rhythm and articulation Mood:"fine" Affect:Restricted Thought form: goal-directed, linear, coherent. Thought content: Non-delusional, denies suicidal thoughts, denies homicidal thoughts, denies intentions or plans. Perception: Denies any auditory or visual hallucinations Attention: No impairment. Orientation: Patient patient was oriented to time place person and situation. Insight: Patient has limited insight about her psychiatric disorder. Judgment: Patient has limited judgment about her psychiatric treatment. Assessment: Depressive disorder, unspecified. Rule out major depressive disorder. Rule out substance use disorder Recommendations: Addressed and ensured patient's safety. Even the patient denies any active suicidal ideation but family reported patient most probably overdosed on her medications and patient was petitioned by her daughter because of concerns about her safety. Patient currently lives by herself and she potentially could be at high risk to repeat suicidal act if she tried to end her life or overdose on medications before coming to the hospital. The patient was very superficial and to great degree guarded and couldn't explain her presentation to the hospital with cognitive impairment or reason for taking antidepressant medications. There is a major contradiction in the patient's history compared to her daughter report. Even the patient did not admit for having active suicidal thoughts, but potentially could be at higher risk released back home with no social support and no further monitoring at home. The patient will benefit from psychiatric inpatient level of care for further monitoring and stabilization. Started the patient on one-to-one observation for safety and possibly suicidal risk. Transfer the patient to psychiatric floor after medical stabilization. If the patient refused, she will need a CERT as she is already petitioned by her daughter and she will be transferred involuntarily. Medical team plan was to discharge the patient home after the psychiatric decision. Patient's daughter expressed great concern about patient's going home for the same living condition. Discussed the treatment plan with the requesting physician/service. Thank you for permitting me to assist in this patient's treatment. Please call psychiatry department if you have any question or need further help with this case. 12/23/20 15:54
[2020-12-23] MEDS: MONTELUKAST 10 MG TAB PO SCH (20:25)
[2020-12-23] MEDS: DULoxetine HCL 30 MG CAPSULE.DR PO SCH (20:25)
[2020-12-23] MEDS: ATORVASTATIN 20 MG TAB PO SCH (20:25)
[2020-12-23] MEDS: MIRTAZAPINE 15 MG TAB PO SCH (20:55)
[2020-12-24 05:33] LABS: Anisocytosis Moderate; Basophils # (A) 0.3 k/uL (0-0.2); Basophils % (A) 1 %; Eosinophils # (A) 0.2 k/uL (0-0.7); Eosinophils % (A) 1 %; HCT 32.1 % (34.0-46.0); HGB 10.5 gm/dL (11.4-16.0); Lymphocytes # (A) 2.7 k/uL (1.0-4.8); Lymphocytes % (A) 13 %; MCH 28.2 pg (25.0-35.0); MCHC 32.7 g/dL (31.0-37.0); MCV 86.5 fL (80.0-100.0); Mean Platelet Volume 8.3; Microcytosis Slight; Monocytes # (A) 2.2 k/uL (0-1.0); Monocytes % (A) 11 %; Neutrophils # (A) 13.8 k/uL (1.3-7.7); Neutrophils % (A) 69 %; Platelet Count 223 k/uL (150-450); RBC 3.71 m/uL (3.80-5.40); WBC 19.9 k/uL (3.8-10.6)
[2020-12-24] MEDS: SYMBICORT 160-4.5 MCG INHALER INHALATION SCH ×2 (07:36→19:41)
[2020-12-24] MEDS: traMADol 50 MG TAB PO PRN ×2 (08:12→16:06)
[2020-12-24] MEDS: GABAPENTIN 100 MG CAP PO SCH ×3 (08:12→20:58)
[2020-12-24] MEDS: PRIMIDONE 50 MG TAB PO SCH ×3 (08:14→20:57)
[2020-12-24] MEDS: TOPIRAMATE 100 MG TAB PO SCH ×2 (08:14→20:57)
[2020-12-24] MEDS: ENOXAPARIN 40 MG/0.4 ML SYRINGE SQ SCH (08:15)
[2020-12-24] MEDS: LEVOTHYROXINE SODIUM PO SCH (08:15)
--- NOTE | 2020-12-24 09:39 | P.DS ---
Providers Date of admission: 12/21/20 21:43 Expected date of discharge: 12/24/20 Attending physician: Verónica Yao MD Consults: 12/21/20 21:43 Consult Physician Routine Consulting Provider: Kaci Sosa Consult Reason/Comments: suicidal? Do you want consulting provider notified?: Yes Primary care physician: [facility] Hospital Course: This is a 65-year-old female with past medical history noted below who was brought into the emergency room with worsening confusion. Patient was evaluated in the ER and admitted to the hospital for further management of her medical problems noted below. Patient was petitioned by her daughter to be admitted to the psych unit with concerns that patient is taking extra pain medication at home and abusing her gabapentin. She was seen and evaluated by psychiatry. Patient was deemed not stable to be discharged home. She will be discharged to psych unit for further management. Below is a list of her medical problems addressed during this hospitalization. 1. Acute toxo metabolic encephalopathy, probably secondary to polypharmacy. Now resolved. Computed tomography scan of the head and cervical spine was unremarkable for acute findings. Urine toxicology screen in the ER unremarkable 2. Medication noncompliance and abuse of her Neurontin and tramadol prescription: Counseled extensively 3. Acute kidney injury, resolved with IV fluid hydration 4. Hypokalemia, replaced 5. Hypothyroidism, thyroid function test significantly abnormal as patient is not taking her medications at home. Resume home dose of levothyroxin 6. Chronic low back pain with prior back surgery 7. Underlying depression Patient will be transferred to the psych unit in a stable condition. Leukocytosis is probably reactive and possibly steroid-induced as patient is on low-dose prednisone chronically with no evidence of underlying infection at this time. Physical exam: General: The patient is awake and alert, in no distress Eye: there is normal conjunctiva bilaterally. Neck: The neck is supple, there is no JVD. Cardiovascular: Normal S1-S2, no S3-S4, no murmurs. Respiratory: Lungs clear to auscultation bilaterally Gastrointestinal: Abdomen is soft, nontender Musculoskeletal: There is no pedal edema. Neurological:. Speech is normal. Skin: Skin is warm and dry Patient Condition at Discharge: Fair Plan - Discharge Summary New Discharge Prescriptions: New Gabapentin [Neurontin] 100 mg PO TID cap Continue Topiramate [Topamax] 100 mg PO BID Levothyroxine Sodium [Tirosint-Carly] 200 mcg SL AC-BRKFST rOPINIRole HCL [Requip] 2 mg PO HS predniSONE 5 mg PO DAILY@1200 Rosuvastatin [Crestor] 10 mg PO HS Montelukast [Singulair] 10 mg PO HS Mirtazapine [Remeron] 30 mg PO HS Alendronate Sodium [Fosamax] 70 mg PO WE Budesonide/Formoterol Fumarate [Symbicort 160-4.5 Mcg Inhaler] 2 puff INHALATION RT-BID Albuterol Nebulized [Ventolin Nebulized] 2.5 mg INHALATION RT-QID PRN PRN Reason: Shortness Of Breath Benzonatate [Tessalon Perles] 200 mg PO TID PRN PRN Reason: Cough Primidone [Mysoline] 25 mg PO TID [facility] Infusion 1 dose SQ Q14D DULoxetine HCL [Cymbalta] 30 mg PO HS Ipratropium Nebulized [Atrovent Nebulized 0.2 MG/ML] 0.5 mg INHALATION RT-QID PRN PRN Reason: Shortness Of Breath Discontinued traMADol HCl [Ultram] 50 mg PO TID PRN PRN Reason: Pain Sulfamethox-Tmp 800-160Mg [Bactrim DS 800-160 mg] 1 tab PO MOWEFR@2100 Gabapentin [Neurontin] 300 mg PO TID Buprenorphine HCl [Belbuca] 300 mcg BC BID Baclofen 10 mg PO QID PRN PRN Reason: CRAMPS Discharge Medication List Albuterol Nebulized [Ventolin Nebulized] 2.5 mg INHALATION RT-QID PRN 06/28/20 [History] Alendronate Sodium [Fosamax] 70 mg PO WE 06/28/20 [History] Budesonide/Formoterol Fumarate [Symbicort 160-4.5 Mcg Inhaler] 2 puff INHALATION RT-BID 06/28/20 [History] Levothyroxine Sodium [Tirosint-Carly] 200 mcg SL AC-BRKFST 06/28/20 [History] Mirtazapine [Remeron] 30 mg PO HS 06/28/20 [History] Montelukast [Singulair] 10 mg PO HS 06/28/20 [History] Rosuvastatin [Crestor] 10 mg PO HS 06/28/20 [History] Topiramate [Topamax] 100 mg PO BID 06/28/20 [History] predniSONE 5 mg PO DAILY@1200 06/28/20 [History] rOPINIRole HCL [Requip] 2 mg PO HS 06/28/20 [History] Benzonatate [Tessalon Perles] 200 mg PO TID PRN 09/05/20 [History] Primidone [Mysoline] 25 mg PO TID 09/05/20 [History] [facility] Infusion 1 dose SQ Q14D 09/13/20 [History] DULoxetine HCL [Cymbalta] 30 mg PO HS 09/28/20 [History] Ipratropium Nebulized [Atrovent Nebulized 0.2 MG/ML] 0.5 mg INHALATION RT-QID PRN 12/21/20 [History] Gabapentin [Neurontin] 100 mg PO TID cap 12/24/20 [Rx] Follow up Appointment(s)/Referral(s): Maikel Johnson MD [Primary Care Provider] - 1-2 days Discharge Disposition: TRANSFER TO PSYCH HOSP/UNIT
[2020-12-24 09:49] LABS: African American GFR (CKD) 105.4 (60.0-200.0); Anion Gap 9.7 mmol/L (4.00-12.00); Calcium 8.7 mg/dL (8.7-10.3); Carbon Dioxide 28.3 mmol/L (21.6-31.8); Non-African American GFR(CKD) 90.9 (60.0-200.0); Potassium 3.4 mmol/L (3.5-5.5)
[2020-12-24] MEDS: predniSONE 5 MG TAB PO SCH (11:45)
[2020-12-24] MEDS: MONTELUKAST 10 MG TAB PO SCH (20:57)
[2020-12-24] MEDS: MIRTAZAPINE 15 MG TAB PO SCH (20:58)
[2020-12-24] MEDS: ATORVASTATIN 20 MG TAB PO SCH (20:58)
[2020-12-24] MEDS: DULoxetine HCL 30 MG CAPSULE.DR PO SCH (20:58)
[2020-12-25] MEDS: traMADol 50 MG TAB PO PRN ×3 (01:29→17:04)
[2020-12-25] MEDS: LEVOTHYROXINE SODIUM PO SCH (07:22)
[2020-12-25] MEDS: SYMBICORT 160-4.5 MCG INHALER INHALATION SCH ×2 (07:40→21:05)
[2020-12-25 08:30] LABS: Anisocytosis Moderate; Basophils # (A) 0.2 k/uL (0-0.2); Basophils % (A) 1 %; Eosinophils # (A) 0.4 k/uL (0-0.7); Eosinophils % (A) 1 %; HCT 29.7 % (34.0-46.0); HGB 9.9 gm/dL (11.4-16.0); Lymphocytes # (A) 4.3 k/uL (1.0-4.8); Lymphocytes % (A) 16 %; MCH 29.1 pg (25.0-35.0); MCHC 33.2 g/dL (31.0-37.0); MCV 87.8 fL (80.0-100.0); Mean Platelet Volume 8.4; Microcytosis Slight; Monocytes # (A) 3.2 k/uL (0-1.0); Monocytes % (A) 12 %; Neutrophils # (A) 17.2 k/uL (1.3-7.7); Neutrophils % (A) 65 %; Platelet Count 255 k/uL (150-450); RBC 3.39 m/uL (3.80-5.40); RDW 22.2 % (11.5-15.5); WBC 26.5 k/uL (3.8-10.6)
[2020-12-25] MEDS: ENOXAPARIN 40 MG/0.4 ML SYRINGE SQ SCH (08:33)
[2020-12-25] MEDS: TOPIRAMATE 100 MG TAB PO SCH ×2 (08:35→22:13)
[2020-12-25] MEDS: PRIMIDONE 50 MG TAB PO SCH ×3 (08:35→22:14)
[2020-12-25] MEDS: GABAPENTIN 100 MG CAP PO SCH ×3 (08:38→22:10)
[2020-12-25] MEDS: predniSONE 5 MG TAB PO SCH (12:57)
--- NOTE | 2020-12-25 13:13 | P.PN ---
Subjective Progress Note Date: 12/25/20 Patient discharge was delayed as our psych floor will not take patient on oxygen and would not take patient is requiring 1 person assist. software sales manager working on placement to another geriatric psych facility. Patient is doing well otherwise. Objective - Vital Signs Vital signs: Vital Signs Temp 98.6 F 12/25/20 05:00 Pulse 94 12/25/20 05:00 Resp 16 12/25/20 05:00 BP 110/73 12/25/20 05:00 Pulse Ox 99 12/25/20 07:44 Intake & Output 12/24/20 12/25/20 12/25/20 18:59 06:59 18:59 Other: Voiding Method Toilet Toilet Diaper Diaper # Voids 2 2 2 - Exam General: The patient is awake and alert, in no distress Eye: there is normal conjunctiva bilaterally. Neck: The neck is supple, there is no JVD. Cardiovascular: Normal S1-S2, no S3-S4, no murmurs. Respiratory: Lungs clear to auscultation bilaterally Gastrointestinal: Abdomen is soft, nontender Musculoskeletal: There is no pedal edema. Neurological:. Speech is normal. Skin: Skin is warm and dry - Labs CBC & Chem 7: 12/25/20 08:11 12/24/20 04:52 Labs: Abnormal Lab Results - Last 24 Hours (Table) 12/25/20 Range/Units 08:11 WBC 26.5 H (3.8-10.6) k/uL RBC 3.39 L (3.80-5.40) m/uL Hgb 9.9 L (11.4-16.0) gm/dL Hct 29.7 L (34.0-46.0) % RDW 22.2 H (11.5-15.5) % Neutrophils # 17.2 H (1.3-7.7) k/uL Monocytes # 3.2 H (0-1.0) k/uL Assessment and Plan Assessment: This is a 65-year-old female with past medical history noted below who was brought into the emergency room with worsening confusion. Patient was evaluated in the ER and admitted to the hospital for further management of her medical problems noted below. 1. Acute toxo metabolic encephalopathy, probably secondary to polypharmacy. Now resolved. Computed tomography scan of the head and cervical spine was unremarkable for acute findings. Urine toxicology screen in the ER unremarkable 2. Medication noncompliance and abuse of her Neurontin and tramadol prescription, psychiatry consulted and determined that patient does not have capacity to make medical decisions. They also recommended transfer to inpatient psych facility. 3. Acute kidney injury, resolved with IV fluid hydration 4. Hypokalemia, replaced 5. Hypothyroidism, thyroid function test significantly abnormal as patient is not taking her medications at home as her daughter told me 6. Chronic low back pain with prior back surgery 7. Underlying depression 8. DVT prophylaxis with subcu Lovenox Today, I had a prolonged discussion with nursing staff to take the patient off of oxygen as her O2 sat is 99% and currently she is on 3 L. Apparently the patient was very anxious and agitated when nurses tried to take her off of oxygen. This is obstructing her discharge as multiple facilities that take care of geriatric psychiatry patients will not accept her on oxygen. Her O2 sats is greater than the 95% on room air. Awaiting placement to geriatric psych facility
[2020-12-25] MEDS: ATORVASTATIN 20 MG TAB PO SCH (22:09)
[2020-12-25] MEDS: MONTELUKAST 10 MG TAB PO SCH (22:09)
[2020-12-25] MEDS: MIRTAZAPINE 15 MG TAB PO SCH (22:12)
[2020-12-25] MEDS: DULoxetine HCL 30 MG CAPSULE.DR PO SCH (22:12)
[2020-12-26] MEDS: traMADol 50 MG TAB PO PRN ×3 (03:45→19:42)
[2020-12-26] MEDS: SYMBICORT 160-4.5 MCG INHALER INHALATION SCH ×2 (08:03→20:24)
[2020-12-26] MEDS: PRIMIDONE 50 MG TAB PO SCH ×3 (08:20→20:15)
[2020-12-26] MEDS: TOPIRAMATE 100 MG TAB PO SCH ×2 (08:20→20:15)
[2020-12-26] MEDS: GABAPENTIN 100 MG CAP PO SCH ×3 (08:20→20:15)
[2020-12-26] MEDS: ENOXAPARIN 40 MG/0.4 ML SYRINGE SQ SCH (08:21)
[2020-12-26] MEDS: LEVOTHYROXINE SODIUM PO SCH (08:21)
--- NOTE | 2020-12-26 09:47 | XR ---
EXAMINATION TYPE: XR chest 1V portable DATE OF EXAM: 12/26/2020 COMPARISON: Chest x-ray 12/21/2020, CT chest 08/24/2020 and 10/16/2020 HISTORY: Leukocytosis TECHNIQUE: Single frontal view of the chest is obtained. FINDINGS: Lung volumes are low. The heart is obscured. There is no evident pneumothorax. Patchy bila teral increased attenuation is present within the lungs. Increased attenuation along the anterior rib s is consistent with previous fractures on the right. Bandlike area of increased attenuation in the l eft lung base likely reflects atelectasis or scarring. Vertebral plasty change noted within the thora cic lumbar junction, T12. IMPRESSION: Chronic elevation of the hemidiaphragms. Probable basilar atelectasis, difficult to excl ude pneumonia versus scarring.
[2020-12-26 10:34] LABS: Anisocytosis Moderate; HCT 25.1 % (34.0-46.0); Hypochromasia Slight; MCH 28.9 pg (25.0-35.0); MCHC 32.6 g/dL (31.0-37.0); MCV 88.5 fL (80.0-100.0); Mean Platelet Volume 8.9; Microcytosis Slight; Platelet Count 238 k/uL (150-450); RBC 2.84 m/uL (3.80-5.40); RDW 22.4 % (11.5-15.5); WBC 24.9 k/uL (3.8-10.6)
[2020-12-26 10:56] LABS: African American GFR (CKD) 81 (>60 ml/min/1.73 sqM); Anion Gap 7 mmol/L; Blood Urea Nitrogen 16 mg/dL (7-17); Calcium 8.4 mg/dL (8.4-10.2); Carbon Dioxide 29 mmol/L (22-30); Chloride 99 mmol/L (98-107); Glucose 113 mg/dL (74-99); Non-African American GFR(CKD) 70 (>60 ml/min/1.73 sqM); Potassium 3.8 mmol/L (3.5-5.1); Sodium 135 mmol/L (137-145)
[2020-12-26] MEDS: predniSONE 5 MG TAB PO SCH (11:42)
[2020-12-26] MEDS: LEVOTHYROXINE 100 MCG TAB PO SCH (11:42)
[2020-12-26 11:45] LABS: HGB 8.2 gm/dL (11.4-16.0)
[2020-12-26 14:47] LABS: Ovalocytes Present; Polychromasia Present; Target Cells Present
--- NOTE | 2020-12-26 16:37 | P.PN ---
<Bowen Thacker - Last Filed: 12/26/20 16:26> Subjective Progress Note Date: 12/26/20 Hospital course: Patient is a 65-year-old female with a past medical history significant for po lysubstance abuse, COPD home oxygen dependent, obstructive sleep apnea, GERD and hypothyroidism. Patient presented to the hospital on 12/21/20 with a chief complaint of weakness and frequent falls at home after reportedly overdosing on prescription medications morphine, gabapentin, and tramadol. Patient was fully worked up in the emergency department resulting in admission under our services for polysubstance abuse with overdose, acute kidney injury, mild anemia, and hypokalemia. Urine drug screen positive for barbiturates. Physical exam: Patient seen and fully evaluated at the bedside this morning. She was resting comfortably. Sitter remains at bedside maintaining patient safety. Patient was noted to have progressively worsening leukocytosis as well as anemia. Patient denies having any cough or congestion, chills, diaphoresis, abdominal pain, nausea, vomiting, noted hematuria, hematochezia, or melena. Patient is currently awaiting transfer to inpatient psychiatric unit. General: non toxic, no distress, appears at stated age Derm: warm, dry Head: atraumatic, normocephalic, symmetric Eyes: EOMI, no lid lag, anicteric sclera Mouth: no lip lesion, mucus membranes moist Cardiovascular: S1S2 reg, murmur present. positive posterior tibial pulses bilaterally. Lungs: Respirations even, regular, and unlabored on baseline 5 L O2 via nasal cannula. Lungs diminished at bilateral bases. No rhonchi, wheezes, or rales noted at this time. No accessory muscle use. Abdominal: Soft, nontender to palpation, no guarding, no appreciable organomegaly. Ext: No gross muscle atrophy, no edema, no contractures. Walking boot left foot. Neuro: CN II-XI grossly intact, no focal neuro deficits Psych: Alert, oriented, appropriate affect Plan of care: Acute metabolic encephalopathy secondary to Polysubstance abuse with overdose, resolved -Urine drug screen positive for barbiturates. -CT head and cervical spine negative for acute findings. -Psychiatry following recommending inpatient psychiatric unit. Patient currently awaiting transfer to inpatient psych. -Suicide precautions in place with sitter at bedside. Mild anemia, worsening -Mild persistent worsening anemia with initial hemoglobin of 11.0 upon arrival and repeat labs this morning resulting in 8.2. -Patient denies any noted bleeding, dark stools, or abdominal pain. -Repeat stat CBC to be completed this afternoon for continued close monitoring. Leukocytosis -Improving to 24.9 from previous 26.5. -Plan to repeat CBC this afternoon for close monitoring. -Chest x-ray and urinalysis to be obtained to rule out source of infection. -Chest x-ray revealing chronic elevation of the hemidiaphragms probable basilar atelectasis difficult to exclude pneumonia versus scarring. -Patient being started on ciprofloxacin at this time for treatment of pneumonia Hypothyroidism -TSH 60.500 and free T4 less than 0.07. -Significantly Abnormal thyroid function likely secondary to patient's noncompliance with daily medication regimen. -We will resume patient's Synthroid 200 g daily and patient to follow-up closely outpatient for continued long-term monitoring and management. Acute kidney injury, resolved. Hypokalemia, resolved CODE STATUS: DO NOT RESUSCITATE/DO NOT INTUBATE DVT prophylaxis: SCDs Discussed with: Patient and RN Anticipated discharge date: Clinical course to determine Anticipated discharge place: Inpatient psychiatric facility A total of 45 minutes was spent on the care of this complex patient more than 50% of the time was spent in counseling and care coordination. Objective - Vital Signs Vital signs: Vital Signs Temp 98.7 F 12/26/20 12:49 Pulse 86 12/26/20 12:49 Resp 18 12/26/20 12:49 BP 109/67 12/26/20 12:49 Pulse Ox 99 12/26/20 12:49 Intake & Output 12/25/20 12/26/20 12/26/20 18:59 06:59 18:59 Weight 54.3 kg Other: Voiding Method Toilet Toilet Diaper Diaper # Voids 1 - Labs CBC & Chem 7: 12/26/20 09:55 12/26/20 09:55 Labs: Abnormal Lab Results - Last 24 Hours (Table) 12/26/20 12/26/20 Range/Units 09:55 09:55 WBC 24.9 H (3.8-10.6) k/uL RBC 2.84 L (3.80-5.40) m/uL Hgb 8.2 L D (11.4-16.0) gm/dL Hct 25.1 L (34.0-46.0) % RDW 22.4 H (11.5-15.5) % Sodium 135 L (137-145) mmol/L Glucose 113 H (74-99) mg/dL <Gricelda Sullivan - Last Filed: 12/26/20 18:02> Objective - Vital Signs Vital signs: Vital Signs Temp 98.7 F 12/26/20 12:49 Pulse 86 12/26/20 12:49 Resp 18 12/26/20 12:49 BP 109/67 12/26/20 12:49 Pulse Ox 99 12/26/20 12:49 Intake & Output 12/25/20 12/26/20 12/26/20 18:59 06:59 18:59 Intake Total 400 Balance 400 Weight 54.3 kg Intake: Oral 400 Other: Voiding Method Toilet Toilet Diaper Diaper # Voids 1 - Labs CBC & Chem 7: 12/26/20 16:13 12/26/20 09:55 Labs: Abnormal Lab Results - Last 24 Hours (Table) 12/26/20 12/26/20 12/26/20 Range/Units 09:55 09:55 16:13 WBC 24.9 H 24.0 H (3.8-10.6) k/uL RBC 2.84 L 2.54 L (3.80-5.40) m/uL Hgb 8.2 L D 7.4 L (11.4-16.0) gm/dL Hct 25.1 L 22.1 L (34.0-46.0) % RDW 22.4 H 22.9 H (11.5-15.5) % Neutrophils # 18.3 H (1.3-7.7) k/uL Monocytes # 2.9 H (0-1.0) k/uL Sodium 135 L (137-145) mmol/L Glucose 113 H (74-99) mg/dL Assessment and Plan Assessment: Patient seen and examined independently. Patient was also seen by Bowen Thacker NP and case was discussed. I am in agreement with subjective, physical exam, assessment and plan as written above and amended below. Patient seen and examined at bedside. She is physically upset and anxious. She states that she has not had a very good appetite. She denies any shortness of breath. She is unsure if she is coughing. General: non toxic, no distress, [appears older than stated age Derm: warm, dry Head: atraumatic, normocephalic, symmetric Eyes: EOMI, no lid lag, anicteric sclera Mouth: no lip lesion, mucus membranes moist Cardiovascular: S1S2 reg, no murmur, positive posterior tibial pulse bilateral, Lungs: Coarse breath sounds bilateral, no rhonchi, no rales , no accessory muscle use Abdominal: soft, nontender to palpation, no guarding, no appreciable organomegaly Ext: no gross muscle atrophy, no edema, no contractures Neuro: CN II-XI grossly intact, no focal neuro deficits Psych: Alert, oriented, anxious and upset I reviewed laboratory analysis and noted that patient had an increasing white blood cell count is fairly significant. Chest x-ray and urine were ordered. It was noted that she had possible atelectasis versus pneumina. Start Levaquin and monitor closely. May be secondary to aspiration with patient's history of encephalopathy on admission. Patient not medically stable for discharge at this time. Anemia, worsening - may be due to fluids - no signs of bleeding - repeat CBC in AM - Check Iron studies Severe Hypothyrodism - synthroid - enusre patient takes - thins may be influcing mood and behaviors as well as memory.
[2020-12-26 16:42] LABS: Anisocytosis Moderate; Basophils # (A) 0.2 k/uL (0-0.2); Basophils % (A) 1 %; Eosinophils # (A) 0.2 k/uL (0-0.7); Eosinophils % (A) 1 %; HCT 22.1 % (34.0-46.0); HGB 7.4 gm/dL (11.4-16.0); Lymphocytes % (A) 8 %; MCH 29.2 pg (25.0-35.0); MCHC 33.5 g/dL (31.0-37.0); MCV 87.2 fL (80.0-100.0); Mean Platelet Volume 9.1; Microcytosis Slight; Monocytes # (A) 2.9 k/uL (0-1.0); Monocytes % (A) 12 %; Neutrophils # (A) 18.3 k/uL (1.3-7.7); Neutrophils % (A) 76 %; Platelet Count 231 k/uL (150-450); RBC 2.54 m/uL (3.80-5.40); RDW 22.9 % (11.5-15.5)
--- NOTE | 2020-12-26 19:26 | CT ---
EXAMINATION TYPE: CT abdomen pelvis wo con DATE OF EXAM: 12/26/2020 COMPARISON: 08/04/2020 and 06/28/2020 HISTORY: 65-year-old female GI bleed, anemic CT DLP: 517 mGycm. Automated exposure control for dose reduction was used. TECHNIQUE: Contiguous axial scanning of the abdomen and pelvis without IV contrast. Coronal and sagit juan reconstructions performed. FINDINGS: Hemidiaphragms are elevated. Patchy bibasilar opacities persist, probably chronic scarring and volume loss, unchanged from 06/28/2020. Correlate with patient's symptoms. Noncontrast appearance of the liver, right adrenal gland, kidneys, spleen, pancreas show no gross abn ormal. Suggestion of a large 5.8 cm diverticulum of the third portion of the duodenum. Cholecystectomy clips. Mild thickening of the left adrenal gland without discrete nodularity. No dilated small bowel, free fluid, or free air. Mild generalized anasarca change. There is moderate stool scattered throughout. No pericolonic inflammatory change. No definite abdominal lymphadenopathy seen. Also unremarkable and wall thickening. Correlation to any major exclude cystitis. Multiple pelvic phl eboliths. Uterus surgically absent. Neither ovary clearly visualized. There is a large hematoma centered in the subcutaneous adipose layer lateral to the right measuring a t least 10.0 x 8.2 cm. Bones: Subacute, healing fractures of the right superior and inferior pubic rami. Irregularity of the sacrum, suspect multiple old insufficiency fractures or postsurgical change given the posterior fusi on from L4 through S1 and a fixed grade 1 anterolisthesis at L4-L5. Previous vertebroplasty at T12. IMPRESSION: 1. Subacute healing fractures of the right superior and inferior pubic rami. 2. Large subcutaneous soft tissue hematoma measuring at least 10.0 x 8.2 cm lateral to the right hip . 3. Moderate stool burden. If if the patient is having active GI bleeding, a nuclear medicine GI blee d scan can be performed to localize the site of bleeding. 4. Mild generalized anasarca change.
[2020-12-26] MEDS: LEVOFLOXACIN 750MG-D5W PMX 750 MG in DEXTROSE/WATER 1 150ML.BAG IVPB SCH (19:32)
--- NOTE | 2020-12-26 19:54 | XR ---
EXAMINATION TYPE: AP view pelvis and 2 views right hip, XR femur 2 views RT DATE OF EXAM: 12/26/2020 COMPARISON: Correlation CT same day. Also, prior exam of 06/13/2020. HISTORY: 65-year-old female with right lateral side hip pain after fall, hematoma and bruising. FINDINGS: Pelvis and right hip: Posterior lumbar fusion changes. Marked osteopenia. Subacute healing fractures of the right superior and inferior pubic ramus with callus formation demonstrated. Osteopenia. No displaced fracture seen. Focal soft tissue protuberance along the lateral aspect of the right hip better characterized on CT. Right femur: Meniscal chondrocalcinosis noted. Overpenetration precludes assessment of knee joint effusion. No acu te fracture of the femur identified. IMPRESSION (pelvis, right hip, and right femur): 1. Focal soft tissue protuberance lateral to the right hip better characterized on CT as a hematoma. 2. Healing subacute fractures of the right superior and inferior pubic rami. 3. Osteopenia without additional fracture identified.
[2020-12-26] MEDS: MIRTAZAPINE 15 MG TAB PO SCH (20:15)
[2020-12-26] MEDS: MONTELUKAST 10 MG TAB PO SCH (20:16)
[2020-12-26] MEDS: ATORVASTATIN 20 MG TAB PO SCH (20:16)
[2020-12-26] MEDS: DULoxetine HCL 30 MG CAPSULE.DR PO SCH (20:16)
[2020-12-26 20:24] LABS: Anisocytosis Moderate; Basophils # (A) 0.2 k/uL (0-0.2); Basophils % (A) 1 %; Eosinophils # (A) 0.1 k/uL (0-0.7); Eosinophils % (A) 1 %; HCT 23.2 % (34.0-46.0); HGB 7.1 gm/dL (11.4-16.0); Hypochromasia Slight; Lymphocytes # (A) 2.7 k/uL (1.0-4.8); Lymphocytes % (A) 12 %; MCH 27.4 pg (25.0-35.0); MCHC 30.7 g/dL (31.0-37.0); MCV 89.3 fL (80.0-100.0); Mean Platelet Volume 8.7; Microcytosis Slight; Monocytes # (A) 2.4 k/uL (0-1.0); Monocytes % (A) 10 %; Neutrophils % (A) 73 %; Platelet Count 268 k/uL (150-450); RDW 22.9 % (11.5-15.5); WBC 23.2 k/uL (3.8-10.6)
[2020-12-26] MEDS ORDERED: CIPROFLOXACIN/DEXTROSE PMX 400 MG in DEXTROSE/WATER 1 200ML.BAG IVPB SCH (21:00)
[2020-12-27 01:33] LABS: Anisocytosis Moderate; Basophils # (A) 0.2 k/uL (0-0.2); Basophils % (A) 1 %; Eosinophils # (A) 0.1 k/uL (0-0.7); Eosinophils % (A) 1 %; Lymphocytes # (A) 1.9 k/uL (1.0-4.8); Lymphocytes % (A) 10 %; MCH 30.3 pg (25.0-35.0); MCHC 33.6 g/dL (31.0-37.0); Mean Platelet Volume 8.5; Microcytosis Slight; Monocytes # (A) 2.3 k/uL (0-1.0); Monocytes % (A) 13 %; Neutrophils # (A) 13.4 k/uL (1.3-7.7); Neutrophils % (A) 72 %; Platelet Count 183 k/uL (150-450); RBC 3.11 m/uL (3.80-5.40); RDW 20.5 % (11.5-15.5); WBC 18.7 k/uL (3.8-10.6)
[2020-12-27 01:59] LABS: Prothrombin Time 10.4 sec (9.0-12.0)
[2020-12-27 02:19] LABS: HGB 9.4 gm/dL (11.4-16.0)
[2020-12-27] MEDS: traMADol 50 MG TAB PO PRN (04:34)
[2020-12-27] MEDS: LEVOTHYROXINE 100 MCG TAB PO SCH (04:34)
--- NOTE | 2020-12-27 08:00 | XR ---
EXAMINATION TYPE: XR chest 2V DATE OF EXAM: 12/27/2020 COMPARISON: 12/26/2020 INDICATION: Pneumonia TECHNIQUE: Single frontal view of the chest is obtained. FINDINGS: The heart size is normal. The pulmonary vasculature is normal. Some minimal residual atelectasis may remain at the left base. There is mild blunting left costophren ic angle. Inspiratory effort is poor. Old right rib fractures are evident. Abundant fecal debris is w ithin the colon. IMPRESSION: 1. Mild infiltrate at the left base with blunting the costophrenic angle. Correlate for atelectasis. Findings are improved from comparison.
[2020-12-27] MEDS: TOPIRAMATE 100 MG TAB PO SCH ×2 (08:21→20:50)
[2020-12-27] MEDS: PRIMIDONE 50 MG TAB PO SCH ×3 (08:21→20:50)
[2020-12-27] MEDS: GABAPENTIN 100 MG CAP PO SCH ×3 (08:21→20:50)
[2020-12-27 08:28] LABS: Anisocytosis Moderate; Basophils # (A) 0.2 k/uL (0-0.2); Basophils % (A) 1 %; Eosinophils # (A) 0.2 k/uL (0-0.7); Eosinophils % (A) 1 %; HCT 28.6 % (34.0-46.0); HGB 9.4 gm/dL (11.4-16.0); Lymphocytes % (A) 11 %; MCH 29.7 pg (25.0-35.0); Mean Platelet Volume 8.8; Microcytosis Slight; Monocytes # (A) 2.3 k/uL (0-1.0); Monocytes % (A) 13 %; Neutrophils # (A) 12.7 k/uL (1.3-7.7); Neutrophils % (A) 71 %; Platelet Count 192 k/uL (150-450); RBC 3.18 m/uL (3.80-5.40); RDW 20.5 % (11.5-15.5)
[2020-12-27] MEDS: SYMBICORT 160-4.5 MCG INHALER INHALATION SCH ×2 (08:29→20:11)
[2020-12-27 08:37] LABS: Potassium 3.2 mmol/L (3.5-5.1)
[2020-12-27 08:38] LABS: African American GFR (CKD) 87 (>60 ml/min/1.73 sqM); Anion Gap 5 mmol/L; Blood Urea Nitrogen 13 mg/dL (7-17); Calcium 7.7 mg/dL (8.4-10.2); Carbon Dioxide 31 mmol/L (22-30); Chloride 99 mmol/L (98-107); Glucose 90 mg/dL (74-99); Non-African American GFR(CKD) 75 (>60 ml/min/1.73 sqM); Sodium 135 mmol/L (137-145)
--- NOTE | 2020-12-27 09:43 | P.CNOR ---
<Amarilis Lee - Last Filed: 12/27/20 09:33> History of Present Illness - [facility] Consult date: 12/27/20 Consult reason: other (Subacute pelvic fractures, hematoma right hip) History of present illness: This is a 65-year-old female with long history of mental illness and substance abuse. She has had multiple falls in the recent past. Most recently she was admitted in September 2020 for a large hematoma to her back which was drained surgically. She had a fall about a week ago, sustaining injury to her right hip. She now has a large hematoma to the right hip and we're consulted for orthopedic evaluation of her subacute pelvic fractures and the hematoma. Past Medical History Past Medical History: Asthma, Cancer, COPD, GERD/Reflux, Hyperlipidemia, Pneumonia, Respiratory Disorder, Sleep Apnea/CPAP/BIPAP, Thyroid Disorder Additional Past Medical History / Comment(s): Hematoma chest wall from 06/28/20 fall with R sided rib fractures then later found she had also fractured her R hip, Bilateral hemidiaghramatic paralysis/elevation/weakness, chronic hypoxic respiratory failure with home oxygen at 5L/NC ATC, JAREN but does not tolerate device, tracheobronchitis, agammaglobinemia-now takes oral med for this, adrenal insufficiency, endocarditis, anemia, hiatal hernia, "borderline diabetes", chronic low back pain, DDD, osteoporosis, fractured vertabra x2, chronic pain syndrome, RLS, essential tremors, basal cell skin cancer with removals, hypothyroid, urine incontinence, odteopenia. History of Any Multi-Drug Resistant Organisms: None Reported Past Surgical History: Adenoidectomy, Appendectomy, Back Surgery, Breast Surgery, Cholecystectomy, Hysterectomy, Joint Replacement, Tonsillectomy Additional Past Surgical History / Comment(s): R breast bx, bilateral breast reduction/precancer, skin cancer with removals, back fusion with hardware, T12 kyphoplasty, L knee arthroscopy/ACL repair, total L knee arthroplasty, epidural back injections, colonoscopy, hemorrhoidectomy. Status post right chest I&D of hematoma. Past Anesthesia/Blood Transfusion Reactions: No Reported Reaction, Family History of Problems w/ Anesthesia, Motion Sickness Additional Past Anesthesia/Blood Transfusion Reaction / Comm: "brother was awake during whole surgery" Smoking Status: Second hand smoke exposure - Past Family History Mother Family Medical History: Cancer Additional Family Medical History / Comment(s): Metastatic breast cancer. Father Family Medical History: Cancer Additional Family Medical History / Comment(s): Lung cancer Medications and Allergies Home Medications Medication Instructions Recorded Confirmed Type Albuterol Nebulized [Ventolin 2.5 mg INHALATION RT-QID PRN 06/28/20 12/21/20 History Nebulized] Alendronate Sodium [Fosamax] 70 mg PO WE 06/28/20 12/21/20 History Budesonide/Formoterol Fumarate 2 puff INHALATION RT-BID 06/28/20 12/21/20 History [Symbicort 160-4.5 Mcg Inhaler] Levothyroxine Sodium [Tirosint-Carly] 200 mcg SL AC-BRKFST 06/28/20 12/21/20 History Mirtazapine [Remeron] 30 mg PO HS 06/28/20 12/21/20 History Montelukast [Singulair] 10 mg PO HS 06/28/20 12/21/20 History Rosuvastatin [Crestor] 10 mg PO HS 06/28/20 12/21/20 History Topiramate [Topamax] 100 mg PO BID 06/28/20 12/21/20 History predniSONE 5 mg PO DAILY@1200 06/28/20 12/21/20 History rOPINIRole HCL [Requip] 2 mg PO HS 06/28/20 12/21/20 History Benzonatate [Tessalon Perles] 200 mg PO TID PRN 09/05/20 12/21/20 History Primidone [Mysoline] 25 mg PO TID 09/05/20 12/21/20 History Hyszentra Infusion 1 dose SQ Q14D 09/13/20 12/21/20 History DULoxetine HCL [Cymbalta] 30 mg PO HS 09/28/20 12/21/20 History Ipratropium Nebulized [Atrovent 0.5 mg INHALATION RT-QID PRN 12/21/20 12/21/20 History Nebulized 0.2 MG/ML] Gabapentin [Neurontin] 100 mg PO TID cap 12/24/20 Rx Allergies Allergy/AdvReac Type Severity Reaction Status Date / Time aspirin Allergy Rash/Hives Verified 12/21/20 21:15 bee pollen Allergy Anaphylaxis Verified 12/21/20 21:15 cefdinir [From Omnicef] Allergy Anaphylaxis Verified 12/21/20 21:15 clarithromycin [From Biaxin] Allergy Anaphylaxis Verified 12/21/20 21:15 ibuprofen [From Advil] Allergy Anaphylaxis Verified 12/21/20 21:15 Iodinated Contrast Media Allergy SWELLING Verified 12/21/20 21:15 [Iodinated Contrast Media - OF THROAT IV Dye] iodine Allergy Anaphylaxis Verified 12/21/20 21:15 omalizumab [From Xolair] Allergy Anaphylaxis Verified 12/21/20 21:15 prochlorperazine edisylate Allergy Rash/Hives Verified 12/21/20 21:15 [From Compazine] prochlorperazine maleate Allergy Rash/Hives Verified 12/21/20 21:15 [From Compazine] shellfish derived Allergy Anaphylaxis Verified 12/21/20 21:15 Penicillins AdvReac Dyspnea Verified 12/21/20 21:15 Physical Examination This is a pleasant 65-year-old female in no acute distress. He is tearful on exam when discussing possible surgery. She is alert and oriented at this time. Exam of the head neck reveal no obvious deformity. She has full cervical spine motion without difficulty or pain. Exam of the upper extremities is unremarkable. There are some superficial abrasions noted to the upper extremities. She has fairly good shoulder, elbow, wrist and finger motion bilaterally. Exam of the lower extremities reveals a large hematoma to the lateral right thigh. There is significant ecchymosis, minimal erythema. The soft tissue is significantly distended and tender. She is able to bend the knee with some pa in. She has difficulties with straight leg raise. She has full foot and ankle motion without difficulty or pain. Neurovascular status to the lower extremity is intact. Results CT of the pelvis reveals healing fractures to the superior and inferior. Rami on the right. There is a large hematoma noted on CT to the right lateral hip/thigh. No other bony abnormalities are noted. Hemoglobin dropped to 7.1 and she was given transfusion. Hemoglobin today is 9.4. - Labs Labs: Abnormal Lab Results - Last 24 Hours (Table) 12/26/20 12/26/20 12/26/20 Range/Units 09:55 09:55 16:13 WBC 24.9 H 24.0 H (3.8-10.6) k/uL RBC 2.84 L 2.54 L (3.80-5.40) m/uL Hgb 8.2 L D 7.4 L (11.4-16.0) gm/dL Hct 25.1 L 22.1 L (34.0-46.0) % MCHC (31.0-37.0) g/dL RDW 22.4 H 22.9 H (11.5-15.5) % Neutrophils # 18.3 H (1.3-7.7) k/uL Monocytes # 2.9 H (0-1.0) k/uL Sodium 135 L (137-145) mmol/L Potassium (3.5-5.1) mmol/L Carbon Dioxide (22-30) mmol/L Glucose 113 H (74-99) mg/dL Calcium (8.4-10.2) mg/dL Crossmatch 12/26/20 12/26/20 12/27/20 Range/Units 19:51 19:51 01:15 WBC 23.2 H 18.7 H (3.8-10.6) k/uL RBC 2.60 L 3.11 L (3.80-5.40) m/uL Hgb 7.1 L 9.4 L D (11.4-16.0) gm/dL Hct 23.2 L 28.0 L (34.0-46.0) % MCHC 30.7 L (31.0-37.0) g/dL RDW 22.9 H 20.5 H (11.5-15.5) % Neutrophils # 17.0 H 13.4 H (1.3-7.7) k/uL Monocytes # 2.4 H 2.3 H (0-1.0) k/uL Sodium (137-145) mmol/L Potassium (3.5-5.1) mmol/L Carbon Dioxide (22-30) mmol/L Glucose (74-99) mg/dL Calcium (8.4-10.2) mg/dL Crossmatch See Detail 12/27/20 12/27/20 Range/Units 07:17 07:17 WBC 18.0 H (3.8-10.6) k/uL RBC 3.18 L (3.80-5.40) m/uL Hgb 9.4 L (11.4-16.0) gm/dL Hct 28.6 L (34.0-46.0) % MCHC (31.0-37.0) g/dL RDW 20.5 H (11.5-15.5) % Neutrophils # 12.7 H (1.3-7.7) k/uL Monocytes # 2.3 H (0-1.0) k/uL Sodium 135 L (137-145) mmol/L Potassium 3.2 L (3.5-5.1) mmol/L Carbon Dioxide 31 H (22-30) mmol/L Glucose (74-99) mg/dL Calcium 7.7 L (8.4-10.2) mg/dL Crossmatch H & H 12/21/20 12/22/20 12/24/20 Range/Units 19:58 07:51 04:52 Hgb 11.0 L 11.5 10.5 L (11.4-16.0) gm/dL Hct 32.8 L 35.3 32.1 L (34.0-46.0) % 12/25/20 12/26/20 12/26/20 Range/Units 08:11 09:55 16:13 Hgb 9.9 L 8.2 L D 7.4 L (11.4-16.0) gm/dL Hct 29.7 L 25.1 L 22.1 L (34.0-46.0) % 12/26/20 12/27/20 12/27/20 Range/Units 19:51 01:15 07:17 Hgb 7.1 L 9.4 L D 9.4 L (11.4-16.0) gm/dL Hct 23.2 L 28.0 L 28.6 L (34.0-46.0) % Coagulation 12/21/20 12/27/20 Range/Units 19:58 01:15 INR 1.0 1.0 (<1.2) Result Diagrams: 12/27/20 07:17 12/27/20 07:17 Assessment and Plan (1) History of fracture of pelvis Current Visit: Yes Status: Acute Code(s): Z87.81 - PERSONAL HISTORY OF (HEALED) TRAUMATIC FRACTURE SNOMED Code(s): 567867041 (2) Traumatic hematoma of right thigh Current Visit: Yes Status: Acute Code(s): S70.11XA - CONTUSION OF RIGHT THIGH, INITIAL ENCOUNTER SNOMED Code(s): 91388605043325762 (3) History of substance abuse Current Visit: Yes Status: Acute Code(s): F19.11 - OTHER PSYCHOACTIVE SUBS TANCE ABUSE, IN REMISSION SNOMED Code(s): 617631644 Plan: The clinical and radiographic findings are discussed the patient. The patient is evaluated by Dr. Streeter is well. It is discussed with the patient and her daughter that it is recommended she undergo evacuation of the hematoma. The procedures discussed with the patient and her daughter in detail. The patient does have a concern about general anesthesia and intubation. We will discuss the case further with anesthesia when she comes down for surgery. After discussion and consideration the patient and daughter elects to proceed with the surgery. <Naresh Streeter - Last Filed: 12/27/20 10:07> Physical Examination Osteopathic Statement: *. No significant issues noted on an osteopathic structural exam other than those noted in the History and Physical/Consult. Results - Labs Labs: Abnormal Lab Results - Last 24 Hours (Table) 12/26/20 12/26/20 12/26/20 Range/Units 09:55 09:55 16:13 WBC 24.9 H 24.0 H (3.8-10.6) k/uL RBC 2.84 L 2.54 L (3.80-5.40) m/uL Hgb 8.2 L D 7.4 L (11.4-16.0) gm/dL Hct 25.1 L 22.1 L (34.0-46.0) % MCHC (31.0-37.0) g/dL RDW 22.4 H 22.9 H (11.5-15.5) % Neutrophils # 18.3 H (1.3-7.7) k/uL Monocytes # 2.9 H (0-1.0) k/uL Sodium 135 L (137-145) mmol/L Potassium (3.5-5.1) mmol/L Carbon Dioxide (22-30) mmol/L Glucose 113 H (74-99) mg/dL Calcium (8.4-10.2) mg/dL Crossmatch 12/26/20 12/26/20 12/27/20 Range/Units 19:51 19:51 01:15 WBC 23.2 H 18.7 H (3.8-10.6) k/uL RBC 2.60 L 3.11 L (3.80-5.40) m/uL Hgb 7.1 L 9.4 L D (11.4-16.0) gm/dL Hct 23.2 L 28.0 L (34.0-46.0) % MCHC 30.7 L (31.0-37.0) g/dL RDW 22.9 H 20.5 H (11.5-15.5) % Neutrophils # 17.0 H 13.4 H (1.3-7.7) k/uL Monocytes # 2.4 H 2.3 H (0-1.0) k/uL Sodium (137-145) mmol/L Potassium (3.5-5.1) mmol/L Carbon Dioxide (22-30) mmol/L Glucose (74-99) mg/dL Calcium (8.4-10.2) mg/dL Crossmatch See Detail 12/27/20 12/27/20 Range/Units 07:17 07:17 WBC 18.0 H (3.8-10.6) k/uL RBC 3.18 L (3.80-5.40) m/uL Hgb 9.4 L (11.4-16.0) gm/dL Hct 28.6 L (34.0-46.0) % MCHC (31.0-37.0) g/dL RDW 20.5 H (11.5-15.5) % Neutrophils # 12.7 H (1.3-7.7) k/uL Monocytes # 2.3 H (0-1.0) k/uL Sodium 135 L (137-145) mmol/L Potassium 3.2 L (3.5-5.1) mmol/L Carbon Dioxide 31 H (22-30) mmol/L Glucose (74-99) mg/dL Calcium 7.7 L (8.4-10.2) mg/dL Crossmatch H & H 12/21/20 12/22/20 12/24/20 Range/Units 19:58 07:51 04:52 Hgb 11.0 L 11.5 10.5 L (11.4-16.0) gm/dL Hct 32.8 L 35.3 32.1 L (34.0-46.0) % 12/25/20 12/26/20 12/26/20 Range/Units 08:11 09:55 16:13 Hgb 9.9 L 8.2 L D 7.4 L (11.4-16.0) gm/dL Hct 29.7 L 25.1 L 22.1 L (34.0-46.0) % 12/26/20 12/27/20 12/27/20 Range/Units 19:51 01:15 07:17 Hgb 7.1 L 9.4 L D 9.4 L (11.4-16.0) gm/dL Hct 23.2 L 28.0 L 28.6 L (34.0-46.0) % Coagulation 12/21/20 12/27/20 Range/Units 19:58 01:15 INR 1.0 1.0 (<1.2) Result Diagrams: 12/27/20 07:17 12/27/20 07:17 Assessment and Plan Plan: I was able to see the patient with any Lee are physician associated as dictated above and agree with the dictation above. Patient has a large tense hematoma at her right thigh. She has been having some anemia as well. I think that her best course of treatment would be to pursue evacuation of the hematoma surgically. We discussed this with her and her discussed with her daughter as well. We answered their questions about her ability C understand. The patient has numerous issues with substance abuse and has difficulty caring for herself. With her multiple issues she may require placement posthospitalization. I think that the patient can have benefit for her large right thigh hematoma with surgical evacuation and we will plan to proceed with this potentially today if she is cleared medically. We answered her questions and her daughter's questions best mobility and agree to proceed.
--- NOTE | 2020-12-27 10:38 | P.PN ---
<Bowen Thacker - Last Filed: 12/27/20 10:00> Subjective Progress Note Date: 12/27/20 Hospital course: Patient is a 65-year-old female with a past medical history significant for po lysubstance abuse, COPD home oxygen dependent, obstructive sleep apnea, GERD and hypothyroidism. Patient presented to the hospital on 12/21/20 with a chief complaint of weakness and frequent falls at home after reportedly overdosing on prescription medications morphine, gabapentin, and tramadol. Patient was fully worked up in the emergency department resulting in admission under our services for polysubstance abuse with overdose, acute kidney injury, mild anemia, and hypokalemia. Urine drug screen positive for barbiturates. Patient had greater than 4 g drop in hemoglobin from 11.5 down to 7. 1 over a 4 day period. Patient was transfused with 1 unit PRBCs and was worked up for bleeding had hematoma noted on right hip in which a CT abdomen and pelvis was completed showing subacute healing fractures of the right superior and inferior pubic rami with a large subcutaneous soft tissue hematoma measuring at least 10.0 x 8.2 cm lateral to the right hip, moderate stool burden, and mild generalized ansarca change. X- ray right hip, pelvis, and right femur showing focal soft tissue protuberance lateral to the right hip better characterized on CT is a hematoma, healing subacute fractures of the right superior and inferior pubic rami, and osteopenia without additional fracture. Physical exam: Patient seen and fully evaluated at the bedside this morning. She was resting comfortably. Sitter remains at bedside maintaining patient safety. Patient was started on ciprofloxacin for concerns of possible pneumonia as chest x-ray revealed chronic elevation of the hemidiaphragms probably basilar atelectasis difficult to exclude pneumonia versus scarring. Leukocytosis improved from previous 24.9 and has decreased to 18. Patient's hemoglobin continued to drop yesterday resulting in transfusion 1 unit PRBCs. Currently hemoglobin stable at 9.4. Patient was found to have hematoma in her right hip and CT was completed revealing a large hematoma along with subacute fractures of the right superior and inferior pubic rami. Gen. surgery and orthopedic surgery both consulted. Patient denies having any other complaints including headache, lightheadedness, dizziness, chest pain or palpitations, or shortness of breath. General: non toxic, no distress, appears at stated age Derm: warm, dry. large hematoma right hip Head: atraumatic, normocephalic, symmetric Eyes: EOMI, no lid lag, anicteric sclera Mouth: no lip lesion, mucus membranes moist Cardiovascular: S1S2 reg, murmur present. positive posterior tibial pulses bilaterally. Lungs: Respirations even, regular, and unlabored on baseline 5 L O2 via nasal cannula. Lungs diminished at bilateral bases. No rhonchi, wheezes, or rales noted at this time. No accessory muscle use. Abdominal: Soft, nontender to palpation, no guarding, no appreciable organomegaly. Ext: No gross muscle atrophy, no edema, no contractures. Walking boot left foot. Neuro: CN II-XI grossly intact, no focal neuro deficits Psych: Alert, oriented, appropriate affect Plan of care: Hematoma of right hip with subacute healing fractures of the right superior and inferior pubic rami resulting in acute blood loss anemia -CT abdomen and pelvis showing subacute healing fractures of the right superior and inferior pubic rami with a large subcutaneous soft tissue hematoma measuring at least 10.0 x 8.2 cm lateral to the right hip, moderate stool burden, and mild generalized ansarca change. -X-ray right hip, pelvis, and right femur showing focal soft tissue protuberance lateral to the right hip better characterized on CT is a hematoma, healing subacute fractures of the right superior and inferior pubic rami, and osteopenia without additional fracture. -Patient had greater than 4 g drop in hemoglobin from 11.5 down to 7.1 over a 4 day period, transfuse 1 unit PRBCs and posttransfusion hemoglobin stable at 9.4. -Gen. surgery consult for possible drainage of hematoma -Orthopedic surgery consult for subacute fractures of the right superior and inferior pubic rami. -Trend CBC every 6 hours and transfuse as needed for hemoglobin less than 7. -symptomatic care and pain managment. -D/C'd lovenox and DVT prophylaxis with SCDs. Medical clearance for surgical evacuation of large right hip hematoma -METS >4 as patient states she is able to perform ADLs and walk one to 2 blocks and/or up one flight of stairs without chest pain or shortness of breath. -From a medical perspective, patient may proceed to surgery without further need of testing at this time. Acute metabolic encephalopathy secondary to Polysubstance abuse with overdose, resolved -Urine drug screen positive for barbiturates. -CT head and cervical spine negative for acute findings. -Psychiatry following recommending inpatient psychiatric unit. Patient currently awaiting transfer to inpatient psych. -Suicide precautions in place with sitter at bedside. Leukocytosis secondary to suspected pneumonia, improving after initiation of IV antibiotics -Improving to 24.9 from previous 18.0. -Chest x-ray revealing chronic elevation of the hemidiaphragms probable basilar atelectasis difficult to exclude pneumonia versus scarring. -Patient being started on ciprofloxacin at this time for treatment of pneumonia -Incentive spirometry -Oxygenation supplementation as needed to maintain SpO2 equal to or greater than 92% with goal to wean back to baseline 5 L O2. Patient currently on 5 L. Hypothyroidism -TSH 60.500 and free T4 less than 0.07. -Significantly Abnormal thyroid function likely secondary to patient's noncompliance with daily medication regimen. -We will resume patient's Synthroid 200 g daily and patient to follow-up closely outpatient for continued long-term monitoring and management. Acute kidney injury, resolved. Hypokalemia, resolved CODE STATUS: DO NOT RESUSCITATE/DO NOT INTUBATE DVT prophylaxis: SCDs Discussed with: Patient and RN Anticipated discharge date: Clinical course to determine Anticipated discharge place: Inpatient psychiatric facility A total of 45 minutes was spent on the care of this complex patient more than 50% of the time was spent in counseling and care coordination. Objective - Vital Signs Vital signs: Vital Signs Temp 98.2 F 12/27/20 05:00 Pulse 80 12/27/20 08:43 Resp 18 12/27/20 05:00 BP 107/70 12/27/20 05:00 Pulse Ox 100 12/27/20 05:00 Intake & Output 12/26/20 12/27/20 12/27/20 18:59 06:59 18:59 Intake Total 400 310 Balance 400 310 Weight 54 kg Intake: Oral 400 Blood Product 310 Rc As-1 Unit 310 [id number] Other: Voiding Method Toilet Toilet Diaper Diaper # Voids 2 - Labs CBC & Chem 7: 12/27/20 07:17 12/27/20 07:17 Labs: Abnormal Lab Results - Last 24 Hours (Table) 12/26/20 12/26/20 12/26/20 Range/Units 09:55 09:55 16:13 WBC 24.9 H 24.0 H (3.8-10.6) k/uL RBC 2.84 L 2.54 L (3.80-5.40) m/uL Hgb 8.2 L D 7.4 L (11.4-16.0) gm/dL Hct 25.1 L 22.1 L (34.0-46.0) % MCHC (31.0-37.0) g/dL RDW 22.4 H 22.9 H (11.5-15.5) % Neutrophils # 18.3 H (1.3-7.7) k/uL Monocytes # 2.9 H (0-1.0) k/uL Sodium 135 L (137-145) mmol/L Potassium (3.5-5.1) mmol/L Carbon Dioxide (22-30) mmol/L Glucose 113 H (74-99) mg/dL Calcium (8.4-10.2) mg/dL Crossmatch 12/26/20 12/26/20 12/27/20 Range/Units 19:51 19:51 01:15 WBC 23.2 H 18.7 H (3.8-10.6) k/uL RBC 2.60 L 3.11 L (3.80-5.40) m/uL Hgb 7.1 L 9.4 L D (11.4-16.0) gm/dL Hct 23.2 L 28.0 L (34.0-46.0) % MCHC 30.7 L (31.0-37.0) g/dL RDW 22.9 H 20.5 H (11.5-15.5) % Neutrophils # 17.0 H 13.4 H (1.3-7.7) k/uL Monocytes # 2.4 H 2.3 H (0-1.0) k/uL Sodium (137-145) mmol/L Potassium (3.5-5.1) mmol/L Carbon Dioxide (22-30) mmol/L Glucose (74-99) mg/dL Calcium (8.4-10.2) mg/dL Crossmatch See Detail 12/27/20 12/27/20 Range/Units 07:17 07:17 WBC 18.0 H (3.8-10.6) k/uL RBC 3.18 L (3.80-5.40) m/uL Hgb 9.4 L (11.4-16.0) gm/dL Hct 28.6 L (34.0-46.0) % MCHC (31.0-37.0) g/dL RDW 20.5 H (11.5-15.5) % Neutrophils # 12.7 H (1.3-7.7) k/uL Monocytes # 2.3 H (0-1.0) k/uL Sodium 135 L (137-145) mmol/L Potassium 3.2 L (3.5-5.1) mmol/L Carbon Dioxide 31 H (22-30) mmol/L Glucose (74-99) mg/dL Calcium 7.7 L (8.4-10.2) mg/dL Crossmatch <Gricelda Sullivan - Last Filed: 12/27/20 17:53> Objective - Vital Signs Vital signs: Vital Signs Temp 98.2 F 12/27/20 11:58 Pulse 82 12/27/20 17:11 Resp 16 12/27/20 17:11 BP 120/67 12/27/20 17:11 Pulse Ox 94 L 12/27/20 17:11 Intake & Output 12/26/20 12/27/20 12/27/20 18:59 06:59 18:59 Intake Total 400 310 100 Balance 400 310 100 Weight 54 kg 54 kg Intake: Intake, IV Titration 100 Amount ACETAMINOPHEN IV (For NPO 100 ) 1,000 mg In Empty Bag 1 bag @ 400 mls/hr IVPB ONCE STA Rx#:[id number] Oral 400 Blood Product 310 Rc As-1 Unit 310 [id number] Other: Voiding Method Toilet Toilet Toilet Diaper Diaper Diaper # Voids 2 - Labs CBC & Chem 7: 12/27/20 12:22 12/27/20 07:17 Labs: Abnormal Lab Results - Last 24 Hours (Table) 12/26/20 12/26/20 12/27/20 Range/Units 19:51 19:51 01:15 WBC 23.2 H 18.7 H (3.8-10.6) k/uL RBC 2.60 L 3.11 L (3.80-5.40) m/uL Hgb 7.1 L 9.4 L D (11.4-16.0) gm/dL Hct 23.2 L 28.0 L (34.0-46.0) % MCHC 30.7 L (31.0-37.0) g/dL RDW 22.9 H 20.5 H (11.5-15.5) % Neutrophils # 17.0 H 13.4 H (1.3-7.7) k/uL Monocytes # 2.4 H 2.3 H (0-1.0) k/uL Sodium (137-145) mmol/L Potassium (3.5-5.1) mmol/L Carbon Dioxide (22-30) mmol/L Calcium (8.4-10.2) mg/dL Crossmatch See Detail 12/27/20 12/27/20 12/27/20 Range/Units 07:17 07:17 12:22 WBC 18.0 H 18.7 H (3.8-10.6) k/uL RBC 3.18 L 3.32 L (3.80-5.40) m/uL Hgb 9.4 L 9.5 L (11.4-16.0) gm/dL Hct 28.6 L 30.2 L (34.0-46.0) % MCHC (31.0-37.0) g/dL RDW 20.5 H 20.8 H (11.5-15.5) % Neutrophils # 12.7 H 13.5 H (1.3-7.7) k/uL Monocytes # 2.3 H 2.2 H (0-1.0) k/uL Sodium 135 L (137-145) mmol/L Potassium 3.2 L (3.5-5.1) mmol/L Carbon Dioxide 31 H (22-30) mmol/L Calcium 7.7 L (8.4-10.2) mg/dL Crossmatch Assessment and Plan Assessment: Patient seen and examined independently. Patient was also seen by Bowen Thacker NP and case was discussed. I am in agreement with subjective, physical exam, assessment and plan as written above and amended below. She does complain of some right hip pain, she denies a formal hospital but sta travis she was falling frequently at home. She does have a history of a hip fracture in the past. She states that she is feeling better from a psychiatric standpoint. She is slightly nervous about her hematoma. Anticipate will need rehab placement on discharge secondary to falls, polysubstance abuse, and unsteady gait No longer meets requirements for inpatient psychiatric hospitalization. Apprec iate psychiatric recommendations. General: non toxic, no distress, appears at stated age Derm: Large hematoma right eye without warmth or erythema Head: atraumatic, normocephalic, symmetric Eyes: EOMI, no lid lag, anicteric sclera Mouth: no lip lesion, mucus membranes moist Cardiovascular: S1S2 reg, no murmur, positive posterior tibial pulse bilateral, Lungs: CTA bilateral, no rhonchi, no rales , no accessory muscle use Abdominal: soft, nontender to palpation, no guarding, no appreciable orga nomegaly Ext: no gross muscle atrophy, no edema, no contractures Neuro: CN II-XI grossly intact, no focal neuro deficits Psych: Alert, oriented, appears anxious
--- NOTE | 2020-12-27 11:09 | P.PN ---
Progress Note - Text Progress Note Date: 12/27/20 Interval History: Patient was seen today for psychiatric follow-up as per primary teams request. Patient was initially admitted for a suspected overdose attempt at home and was brought in by her daughter to the hospital. Nurse taking care of patient states that she has been fairly calm and cooperative taking her medications and not endorsing any suicidal thoughts or depression. Patient was seen at the bedside with her one-to-one sitter. Patient was calm and cooperative with medical technical writer. She states that "I'm here because they think I overdosed". She claims that she does not know what happened and was fairly vague about the circumstances. She claims that there are no stressors going on in her life. She had fairly minimal insight. She claims that the medications have been helping her thus far and she is denying any depression or anxiety today. She claims that at home she is able to do all the ADLs and has some help with IADLs. She claims that she lives alone in a house. She states that she sleeps "on and off" at nighttime. She is denying any access to guns or weapons in the house and claims that she has never had a suicide attempt before. She claims that she has a lot to live for including her 10 grandchildren and wants to be released back to go home. She spoke about being concerned about her surgery today for her leg. At this time patient denies any current suicidal or homical ideations, intent or plan. Patient denies any auditory, visual hallucinations and denies any paranoia or delusions. Patient denies any side effects from the medications and has been compliant with meds. medical technical writer spoke with patients bee Gallagher over the phone at [phone]. She states that her mother lives alone and recently found out that her brother was moving out of the house and claims that she may have acted impulsively and overdosed on her medications. She states that she came and found her "high as a kite" in her house and brought her into the hospital. She claims that she has had multiple falls in the past and has not been taking care of herself well. She strongly believes that patient cannot live on her own and she was getting help from her brother which she will now not be getting any longer. She claims that she has overdosed once in the past in 2011 when she lived in [place]. Daughter claims that patient would be much suited better at rehab and then a long-term assisted. She claims that she is also planning on seeking guardianship as patient is not making good decisions and will most likely refuse to go to a assisted. She also stated that patient has been stashing old meds from months and years ago in her house and takes them whenever she wants. Mental Status Exam: General Appearance: [Patient appears to be thin, elderly, directable, and attempts to be cooperative.] Fair hygiene and grooming. Behavior: [Patient is calmly laying in the bed without any agitated behavior.] Speech: Patient's speech is fluent and nonpressured. Mood/Affect: Mood is improving mildly, affect is congruent and constricted. Suicidality/Homicidality: Patient denies having any suicidal or homicidal ideation intent or plan. Perceptions: Patient denies any visual hallucinations [and denies any auditory hallucinations] Though content/process: Patient is fairly concrete. Vague at times. Logical. Memory and concentration: AOX3, does not know who the current president is. She cannot spell "world" backwards. Judgment and insight: poor however is Improving mildly Assessment Depressive disorder, unspecified, rule out adjustment disorder vs major depressive disorder Rule out substance use disorder Plan: -At this time patient DOES NOT meet criteria for inpatient psychiatric admission. -Patient DOES NOT have decision making capacity at this time and is unable to reason through and communicate/appreciate the risks, benefits and alternatives to treatment. -Delirium precautions recommended with patient including - avoiding use of narcotics and CHARGING MACHINE OPERATOR sedatives, limit anticholinergic medications when possible, frequent re-orientation, minimize use of restraints, open window shades during the day and close them at night -Would recommend the following medication changes/additions: Added melatonin 3 mg daily at bedtime for sleep, increased Cymbalta to 40mg bid for anxiety/mood. Can continue with Remeron 30 mg daily at bedtime -Can discontinue 1:1 sitter at this time as patient is not currently an imminent threat to themselves -SW to look into rehab placement after she has her surgery today as patient apparently has unsteady gait and has a hx of falls. From there patient cannot live on her own and care for herself or take her medications properly and [facility] assisted placement should be looked at. -Communicated plan to patient's nurse -will continue to follow patient as needed. -Please contact with any questions.
[2020-12-27] MEDS ORDERED: ACETAMINOPHEN IV (For NPO) 1,000 MG in EMPTY BAG 1 BAG IVPB STA (12:42)
[2020-12-27] MEDS ORDERED: POTASSIUM CHLORIDE ER 20 MEQ TAB.ER PO STA (13:07)
[2020-12-27 13:09] LABS: Anisocytosis Moderate; Basophils # (A) 0.2 k/uL (0-0.2); Basophils % (A) 1 %; Eosinophils # (A) 0.2 k/uL (0-0.7); Eosinophils % (A) 1 %; HCT 30.2 % (34.0-46.0); HGB 9.5 gm/dL (11.4-16.0); Hypochromasia Slight; Lymphocytes % (A) 11 %; MCH 28.5 pg (25.0-35.0); MCHC 31.3 g/dL (31.0-37.0); Mean Platelet Volume 8.7; Monocytes # (A) 2.2 k/uL (0-1.0); Monocytes % (A) 12 %; Neutrophils # (A) 13.5 k/uL (1.3-7.7); Neutrophils % (A) 72 %; Platelet Count 194 k/uL (150-450); Poikilocytosis Slight; RBC 3.32 m/uL (3.80-5.40); RDW 20.8 % (11.5-15.5); WBC 18.7 k/uL (3.8-10.6)
[2020-12-27] MEDS ORDERED: POTASSIUM CHLORIDE 20 MEQ in WATER FOR INJECTION 1 100ML.BAG IVPB STA (14:10)
[2020-12-27 14:33] VITALS: BMI 18.6
--- NOTE | 2020-12-27 15:07 | P.GSCN ---
History of Present Illness Consult date: 12/27/20 History of present illness: CHIEF COMPLAINT: Weakness and frequent falls HISTORY OF PRESENT ILLNESS: This is a 65-year-old female with a past medical history of polysubstance abuse, COPD on home oxygen, obstructive sleep apnea, GERD and hypothyroidism. Patient presented to the hospital on 12/21/2020 with complaints of weakness and frequent falls. Apparently at home she had overdosed on prescription medications which include morphine and gabapentin and tramadol. Patient had a 4 g drop of her hemoglobin from 11.5-7.1 over a four-day period. She did require a transfusion of 1 unit of blood. She was found to have a large right hip hematoma. Computed tomography scan of abdomen and pelvis shows a subacute healing fractures of the right superior inferior pubic rami. Large subcutaneous soft tissue hematoma measuring 10 x 8.2 cm lateral to the right hip. Moderate stool burden. And mild generalized anasarca. Surgical service was consulted in regards to patient's right hip hematoma. Patient also seen by orthopedics and they're planning on surgery with evacuation of the right hip hematoma later today. Patient is lying in bed comfortably. She is afebrile. Patient seen and examined with Dr. Mendoza PAST MEDICAL HISTORY: See list. PAST SURGICAL HISTORY: See list. MEDICATIONS: See list. ALLERGIES: See list. SOCIAL HISTORY: No illicit drug use. REVIEW OF SYSTEMS: CONSTITUTIONAL: Denies fever or chills. HEENT: Denies blurred vision, vision changes, or eye pain. Denies hemoptysis CARDIOVASCULAR: Denies chest pain or pressure. RESPIRATORY: No shortness of breath. GASTROINTESTINAL: See HPI for pertinent findings HEMATOLOGIC: Denies bleeding disorders. GENITOURINARY: Denies any blood in urine or increased urinary frequency. SKIN: Denies pruitis. Denies rash. PHYSICAL EXAM: VITAL SIGNS: Reviewed GENERAL: Well-developed in no acute distress. HEENT: No sclera icterus. Extraocular movements grossly intact. Moist buccal mucosa. Head is atraumatic, normocephalic. No nasal drainage. ABDOMEN: Soft. Nondistended. Nontender NEUROLOGIC: Alert and oriented. Cranial nerves II through XII grossly intact. Extremities: Large right hip hematoma with significant bruising that has shades of discoloration that are purple yellow and green LABORATORY DATA: WBC is 18.7 hemoglobin 9.5 platelets 194 sodium 135 potassium 3.2 creatinine 0.82 IMAGING: As stated above ASSESSMENT: 1. Large right hip hematoma likely secondary to her falls. Patient scheduled for evacuation of hematoma with orthopedic service today 2. History of pelvic fracture 3. Polysubstance abuse PLAN: -Continue supportive care -No surgical intervention planned from general surgical standpoint Thank you for this consultation Physician Integration Assistant note has been reviewed by physician. Signing provider agrees with the documented findings, assessment, and plan of care. Past Medical History Past Medical History: Asthma, Cancer, COPD, GERD/Reflux, Hyperlipidemia, Pneumonia, Respiratory Disorder, Sleep Apnea/CPAP/BIPAP, Thyroid Disorder Additional Past Medical History / Comment(s): Hematoma chest wall from 06/28/20 fall with R sided rib fractures then later found she had also fractured her R hip, Bilateral hemidiaghramatic paralysis/elevation/weakness, chronic hypoxic respiratory failure with home oxygen at 5L/NC ATC, JAREN but does not tolerate device, tracheobronchitis, agammaglobinemia-now takes oral med for this, adrenal insufficiency, endocarditis, anemia, hiatal hernia, "borderline diabetes", chronic low back pain, DDD, osteoporosis, fractured vertabra x2, chronic pain syndrome, RLS, essential tremors, basal cell skin cancer with removals, hypothyroid, urine incontinence, odteopenia. History of Any Multi-Drug Resistant Organisms: None Reported Past Surgical History: Adenoidectomy, Appendectomy, Back Surgery, Breast Patino rgery, Cholecystectomy, Hysterectomy, Joint Replacement, Tonsillectomy Additional Past Surgical History / Comment(s): R breast bx, bilateral breast reduction/precancer, skin cancer with removals, back fusion with hardware, T12 kyphoplasty, L knee arthroscopy/ACL repair, total L knee arthroplasty, epidural back injections, colonoscopy, hemorrhoidectomy. Status post right chest I&D of hematoma. Past Anesthesia/Blood Transfusion Reactions: No Reported Reaction, Family History of Problems w/ Anesthesia, Motion Sickness Additional Past Anesthesia/Blood Transfusion Reaction / Comm: "brother was awake during whole surgery" Smoking Status: Second hand smoke exposure - Past Family History Mother Family Medical History: Cancer Additional Family Medical History / Comment(s): Metastatic breast cancer. Father Family Medical History: Cancer Additional Family Medical History / Comment(s): Lung cancer Medications and Allergies Home Medications Medication Instructions Recorded Confirmed Type Albuterol Nebulized [Ventolin 2.5 mg INHALATION RT-QID PRN 06/28/20 12/21/20 History Nebulized] Alendronate Sodium [Fosamax] 70 mg PO WE 06/28/20 12/21/20 History Budesonide/Formoterol Fumarate 2 puff INHALATION RT-BID 06/28/20 12/21/20 History [Symbicort 160-4.5 Mcg Inhaler] Levothyroxine Sodium [Tirosint-Carly] 200 mcg SL AC-BRKFST 06/28/20 12/21/20 History Mirtazapine [Remeron] 30 mg PO HS 06/28/20 12/21/20 History Montelukast [Singulair] 10 mg PO HS 06/28/20 12/21/20 History Rosuvastatin [Crestor] 10 mg PO HS 06/28/20 12/21/20 History Topiramate [Topamax] 100 mg PO BID 06/28/20 12/21/20 History predniSONE 5 mg PO DAILY@1200 06/28/20 12/21/20 History rOPINIRole HCL [Requip] 2 mg PO HS 06/28/20 12/21/20 History Benzonatate [Tessalon Perles] 200 mg PO TID PRN 09/05/20 12/21/20 History Primidone [Mysoline] 25 mg PO TID 09/05/20 12/21/20 History Hyszentra Infusion 1 dose SQ Q14D 09/13/20 12/21/20 History DULoxetine HCL [Cymbalta] 30 mg PO HS 09/28/20 12/21/20 History Ipratropium Nebulized [Atrovent 0.5 mg INHALATION RT-QID PRN 12/21/20 12/21/20 History Nebulized 0.2 MG/ML] Gabapentin [Neurontin] 100 mg PO TID cap 12/24/20 Rx Allergies Allergy/AdvReac Type Severity Reaction Status Date / Time aspirin Allergy Rash/Hives Verified 12/21/20 21:15 bee pollen Allergy Anaphylaxis Verified 12/21/20 21:15 cefdinir [From Omnicef] Allergy Anaphylaxis Verified 12/21/20 21:15 clarithromycin [From Biaxin] Allergy Anaphylaxis Verified 12/21/20 21:15 ibuprofen [From Advil] Allergy Anaphylaxis Verified 12/21/20 21:15 Iodinated Contrast Media Allergy SWELLING Verified 12/21/20 21:15 [Iodinated Contrast Media - OF THROAT IV Dye] iodine Allergy Anaphylaxis Verified 12/21/20 21:15 omalizumab [From Xolair] Allergy Anaphylaxis Verified 12/21/20 21:15 prochlorperazine edisylate Allergy Rash/Hives Verified 12/21/20 21:15 [From Compazine] prochlorperazine maleate Allergy Rash/Hives Verified 12/21/20 21:15 [From Compazine] shellfish derived Allergy Anaphylaxis Verified 12/21/20 21:15 Penicillins AdvReac Dyspnea Verified 12/21/20 21:15 Surgical - Exam Vital Signs Pulse Resp BP Pulse Ox 50 L 10 L 121/69 100 12/21/20 19:32 12/21/20 19:32 12/21/20 19:32 12/21/20 19:32 Results - Labs 12/27/20 12:22 12/27/20 07:17 Abnormal Lab Results - Last 24 Hours (Table) 12/26/20 12/26/20 12/26/20 Range/Units 16:13 19:51 19:51 WBC 24.0 H 23.2 H (3.8-10.6) k/uL RBC 2.54 L 2.60 L (3.80-5.40) m/uL Hgb 7.4 L 7.1 L (11.4-16.0) gm/dL Hct 22.1 L 23.2 L (34.0-46.0) % MCHC 30.7 L (31.0-37.0) g/dL RDW 22.9 H 22.9 H (11.5-15.5) % Neutrophils # 18.3 H 17.0 H (1.3-7.7) k/uL Monocytes # 2.9 H 2.4 H (0-1.0) k/uL Sodium (137-145) mmol/L Potassium (3.5-5.1) mmol/L Carbon Dioxide (22-30) mmol/L Calcium (8.4-10.2) mg/dL Crossmatch See Detail 12/27/20 12/27/20 12/27/20 Range/Units 01:15 07:17 07:17 WBC 18.7 H 18.0 H (3.8-10.6) k/uL RBC 3.11 L 3.18 L (3.80-5.40) m/uL Hgb 9.4 L D 9.4 L (11.4-16.0) gm/dL Hct 28.0 L 28.6 L (34.0-46.0) % MCHC (31.0-37.0) g/dL RDW 20.5 H 20.5 H (11.5-15.5) % Neutrophils # 13.4 H 12.7 H (1.3-7.7) k/uL Monocytes # 2.3 H 2.3 H (0-1.0) k/uL Sodium 135 L (137-145) mmol/L Potassium 3.2 L (3.5-5.1) mmol/L Carbon Dioxide 31 H (22-30) mmol/L Calcium 7.7 L (8.4-10.2) mg/dL Crossmatch 12/27/20 Range/Units 12:22 WBC 18.7 H (3.8-10.6) k/uL RBC 3.32 L (3.80-5.40) m/uL Hgb 9.5 L (11.4-16.0) gm/dL Hct 30.2 L (34.0-46.0) % MCHC (31.0-37.0) g/dL RDW 20.8 H (11.5-15.5) % Neutrophils # 13.5 H (1.3-7.7) k/uL Monocytes # 2.2 H (0-1.0) k/uL Sodium (137-145) mmol/L Potassium (3.5-5.1) mmol/L Carbon Dioxide (22-30) mmol/L Calcium (8.4-10.2) mg/dL Crossmatch Diabetes panel 12/27/20 Range/Units 07:17 Sodium 135 L (137-145) mmol/L Potassium 3.2 L (3.5-5.1) mmol/L Chloride 99 (98-107) mmol/L Carbon Dioxide 31 H (22-30) mmol/L BUN 13 (7-17) mg/dL Creatinine 0.82 (0.52-1.04) mg/dL Glucose 90 (74-99) mg/dL Calcium 7.7 L (8.4-10.2) mg/dL Calcium panel 12/27/20 Range/Units 07:17 Calcium 7.7 L (8.4-10.2) mg/dL Pituitary panel 12/27/20 Range/Units 07:17 Sodium 135 L (137-145) mmol/L Potassium 3.2 L (3.5-5.1) mmol/L Chloride 99 (98-107) mmol/L Carbon Dioxide 31 H (22-30) mmol/L BUN 13 (7-17) mg/dL Creatinine 0.82 (0.52-1.04) mg/dL Glucose 90 (74-99) mg/dL Calcium 7.7 L (8.4-10.2) mg/dL Adrenal panel 12/27/20 Range/Units 07:17 Sodium 135 L (137-145) mmol/L Potassium 3.2 L (3.5-5.1) mmol/L Chloride 99 (98-107) mmol/L Carbon Dioxide 31 H (22-30) mmol/L BUN 13 (7-17) mg/dL Creatinine 0.82 (0.52-1.04) mg/dL Glucose 90 (74-99) mg/dL Calcium 7.7 L (8.4-10.2) mg/dL
[2020-12-27] MEDS ORDERED: ONDANSETRON 4 MG/2 ML VIAL ONE (17:04)
[2020-12-27] MEDS ORDERED: IV FLUID CONTINUATION 1,000 ML IV ONE (17:07)
[2020-12-27] MEDS: predniSONE 5 MG TAB PO SCH (17:07)
[2020-12-27] MEDS ORDERED: HYDROCORTISONE SUCCINATE 100 MG/2 ML VIAL IV ONE (17:19)
[2020-12-27] MEDS ORDERED: ONDANSETRON 4 MG/2 ML VIAL IVP ONE (17:19)
[2020-12-27] MEDS ORDERED: PROPOFOL 10 MG/ML 20 ML VIAL IV ONE (18:15)
[2020-12-27] MEDS ORDERED: fentaNYL (PF) 50 MCG/ML 2 ML AMP ONE (18:15)
[2020-12-27] MEDS ORDERED: MIDAZOLAM 2 MG/2 ML VIAL ONE (18:15)
[2020-12-27] MEDS ORDERED: KETAMINE 10 MG/ML 20 ML VIAL ONE (18:15)
[2020-12-27] MEDS ORDERED: BENZOCAINE/MENTHOL LOZENG 1 EACH LOZENGE MUCOUS MEM PRN (19:15)
--- NOTE | 2020-12-27 19:15 | P.OP ---
Date of Procedure: 12/27/20 Preoperative Diagnosis: Right thigh tense acute hematoma, traumatic measuring approximately 40 x 30 x 30 cm Right thigh pain Postoperative Diagnosis: Same with addition of intramuscular and subcutaneous hematoma approximately 40 x 30 x 30 cm Muscular laceration right quadriceps No obvious active bleeding Anesthesia: MAC Pathology: other (Deep culture 1 sent to [facility]) Condition: stable Disposition: PACU Description of Procedure: BRIEF OPERATIVE NOTE Preoperative Diagnosis: Right thigh tense acute hematoma, traumatic measuring approximately 40 x 30 x 30 cm Right thigh pain Postoperative Diagnosis: Same with intramuscular and subcutaneous hematoma and evidence of muscular laceration and no obvious acute active bleeding Procedure: Evacuation of intramuscular and subcutaneous hematoma Barb 40 x 30 x 30 cm with expiration of wound and excisional debridement and irrigation Surgeon: Dr. Streeter Door Closer Mechanic: addictions counselor assistant Anesthesia: Sedation with mask per Dr. Caputo Estimated blood loss: The evacuated hematoma was over 1 L with approximately 30 mL of additional blood loss Specimen: Deep cultures sent to [facility] Complications: None apparent Components implanted: I placed a 10-Kinyarwanda Hemovac drain subcu Disposition: To recovery room in good stable condition. OPERATIVE INDICATIONS The patient has been having issues in their right thigh since sustaining a fall at home. Patient is somewhat unsteady on her feet and has had some difficulty taking care of herself. Apparently she has some issues with substances. She was having increased pain in her right thigh and swelling in her right thigh. She is in pain over her right thigh as well. We are counseled regarding possibly a fracture where she was found have old chronic. Rami fractures but a large tense right thigh hematoma. It was painful for her and causing her pain with motion at her right quadriceps. it had been expanded but seemed to its stabilized , but was causing significant pain for her and discomfort. It was tense and starting to get some irritation at the skin. We discussed the possibility of surgical intervention for evacuation of hematoma versus conservative management. The patient was quite interested pursuing surgical intervention given the size of the hematoma I felt that this was appropriate. We discussed the risk, patient's alternatives and benefits of surgery including but not limited to, risk of bleeding risk of infection, risk of need for further surgery, risk of decreased, loss of motion, loss of function, cement extravasation, nerve damage, paralysis, heart attack, blindness and . the patient was aware of the DO NOT RESUSCITATE indications in regards to surgery. OPERATIVE SUMMARY After discussing all the risks, patient alternatives and benefits at length, the patient elected to proceed with surgical intervention, signed informed consent, and presented for their procedure. The patient was seen and examined in the preoperative holding area and the surgical site was marked at her right thigh . The patient was given antibiotics and brought to the operating room. the patient was placed in supine position on the operating room table. She was sedated by anesthesia properly being careful to maintain her airway and her C- spine and good neutral alignment and position. She was maintained on airway and Mehdi throughout the case and stabilized. Her right lower extremity was able to prepped and draped in normal standard fashion keeping her right leg free. An appropriate keystone protocol a ppropriate timeout was completed and we will to proceed with the surgery of irrigation and debridement with evacuation of hematoma at the right thigh. An incision was made sharply longitudinally over the hematoma itself approximately 6 cm in length. I was able to exposed into the subcutis tissue and there was obvious hematoma movement. The hematoma had congealed significantly and took significant mobilization with digital mobilization to break up the hematoma itself. Very large amounts of hematoma were evacuated greater than 1 L. I was able to break up the hematoma which had organized to some degree. I was able palpate along the muscle components and there was evidence of tear within the quadriceps as well. I palpated further and there is no evidence of bony exposure. Large hematoma root evacuated and denuded fragments of tissue were excised as well. Was copiously irrigated with pulsatile lavage approximately 3 mL of antibiotic impregnated solution. Deep culture was taken. I was able to explore and there was no evidence of obvious active bleeding. The hematoma had been reduced in size significantly and no further large fragments of organized hematoma were palpated or found. I was able to proceed with closure. We were able to proceed with closure. Some stitches were placed deep to try to secure the space however there was limited purchase given the condition of the muscle and subcutaneous tissue. I placed a 10-Kinyarwanda Hemovac drain. The subcu tissues closed with 2-0 Vicryl and the skin was closed with siobhan.The wound was cleaned and dried and dressed with the appropriate dressing. The drapes were broken down. the right thigh was placed in a pressure type dressing with Adaptic 4 x 4's ABDs and Garrett wrap.The patient was gently rolled back onto their hospital bed being careful to maintain their cervical spine and good neutral alignment and position. They were awake and alert and brought to the recovery room in good stable condition. The patient will be admitted to the hospital for observation and for appropriate postoperative care, medical management and monitoring. We will continue to follow them closely about the postoperative course.
[2020-12-27] MEDS ORDERED: NALOXONE 0.4 MG/ML 1 ML VIAL IV PRN (19:16)
[2020-12-27] MEDS: SODIUM CHLORIDE 0.9% 1,000 ML IV SCH (19:42)
[2020-12-27] MEDS: LEVOFLOXACIN 750MG-D5W PMX 750 MG in DEXTROSE/WATER 1 150ML.BAG IVPB SCH (20:49)
[2020-12-27] MEDS: MIRTAZAPINE 15 MG TAB PO SCH (20:49)
[2020-12-27] MEDS: MONTELUKAST 10 MG TAB PO SCH (20:49)
[2020-12-27] MEDS: MELATONIN 3 MG TABLET PO SCH (20:50)
[2020-12-27] MEDS: ATORVASTATIN 20 MG TAB PO SCH (20:50)
[2020-12-27] MEDS: DULoxetine HCL 20 MG CAPSULE.DR PO SCH (20:50)
[2020-12-27] MEDS: HYDROmorphone 0.5 MG/0.5 ML SYRINGE IVP PRN (20:51)
[2020-12-27] MEDS ORDERED: POTASSIUM CHLORIDE ER 20 MEQ TAB.ER PO ONE (21:00)
[2020-12-27 21:27] LABS: Anisocytosis Moderate; Basophils # (A) 0.3 k/uL (0-0.2); Basophils % (A) 2 %; Eosinophils # (A) 0.1 k/uL (0-0.7); Eosinophils % (A) 1 %; HCT 27.7 % (34.0-46.0); HGB 9.3 gm/dL (11.4-16.0); Hypochromasia Slight; Lymphocytes # (A) 0.9 k/uL (1.0-4.8); Lymphocytes % (A) 5 %; MCH 30.4 pg (25.0-35.0); MCHC 33.5 g/dL (31.0-37.0); MCV 90.6 fL (80.0-100.0); Mean Platelet Volume 8.6; Monocytes # (A) 1.3 k/uL (0-1.0); Monocytes % (A) 7 %; Neutrophils # (A) 16.3 k/uL (1.3-7.7); Neutrophils % (A) 85 %; Platelet Count 187 k/uL (150-450); Poikilocytosis Slight; RBC 3.06 m/uL (3.80-5.40); RDW 20.7 % (11.5-15.5); WBC 19.2 k/uL (3.8-10.6)
[2020-12-27] MEDS: HYDROcodone/APAP 5-325MG 1 EACH TAB PO PRN (23:51)
[2020-12-28] MEDS: traMADol 50 MG TAB PO PRN (03:19)
[2020-12-28] MEDS: LEVOTHYROXINE 100 MCG TAB PO SCH (05:50)
[2020-12-28] MEDS: HYDROmorphone 0.5 MG/0.5 ML SYRINGE IVP PRN (05:54)
[2020-12-28 06:23] LABS: % Iron Saturation 12.08 (12.00-45.00); Iron 36 ug/dL (50-170); Total Iron Binding Capacity 298 ug/dL (228-460)
[2020-12-28 06:30] LABS: Ferritin 36.7 ng/mL (10.0-291.0)
[2020-12-28 06:42] LABS: Anisocytosis Moderate; HCT 25.2 % (34.0-46.0); HGB 7.9 gm/dL (11.4-16.0); Hypochromasia Slight; MCH 28.8 pg (25.0-35.0); MCHC 31.3 g/dL (31.0-37.0); Mean Platelet Volume 8.2; Platelet Count 191 k/uL (150-450); Poikilocytosis Slight; RBC 2.74 m/uL (3.80-5.40); RDW 21.2 % (11.5-15.5); WBC 18.9 k/uL (3.8-10.6)
[2020-12-28] MEDS: SYMBICORT 160-4.5 MCG INHALER INHALATION SCH ×2 (07:50→20:03)
[2020-12-28] MEDS: GABAPENTIN 100 MG CAP PO SCH ×3 (08:52→21:32)
[2020-12-28] MEDS: SODIUM CHLORIDE 0.9% 1,000 ML IV SCH ×2 (08:52→20:31)
[2020-12-28] MEDS: DULoxetine HCL 20 MG CAPSULE.DR PO SCH ×2 (08:53→20:23)
[2020-12-28] MEDS: PRIMIDONE 50 MG TAB PO SCH ×3 (08:53→20:22)
[2020-12-28] MEDS: TOPIRAMATE 100 MG TAB PO SCH ×2 (08:54→20:23)
--- NOTE | 2020-12-28 12:06 | P.PN ---
Progress Note - Text Progress Note Date: 12/28/20 Orthopedics: History of present illness: Patient is a pleasant 65-year-old female who is seen at the bedside for further evaluation regards to her right thigh. She is status post evacuation of intramuscular and subcutaneous hematoma over the right thigh measuring approximately 40 cm x 30 cm x 30 cm with excisional debridement and irrigation. She had an injury to her right thigh status post fall. Postoperatively she feels her right thigh pain has significant improvement. Her dressing and drain remains intact. Approximate 75 mL's of blood was removed from the drain overnight. She does states she feels her symptoms are well enough controlled to where she would like to be discharged today or by tomorrow. Nursing states patient is planning to be discharged to extended care facility the time of discharge. Patient does have some difficulty taking care of herself at home. Patient's other past medical history does include hyperlipidemia, COPD, asthma, history of cancer, thyroid disorder, and history of multiple surgical interventions. Physical Exam: Patient is awake, alert, and oriented 3 Vital signs stable Adequate chest excursion with deep inspiration and expiration Dressing over the right thigh is removing physical examination 10-Estonian drain is removed during physical examination 7 siobhan remain intact over the incisional wound site over the right lateral thigh Evidence of depression and the thigh at the site of the evacuation of hematoma Significant bruising around the right lateral thigh No significant pain on palpation over the right thigh Neurovascularly intact right lower extremity Patient is able to perform active dorsiflexion and plantarflexion of right lower extremity without difficulty Calves are soft nontender; no evidence of DVT Dressing is reapplied over the surgical site with Adaptic, nonstick Telfa, and Tegaderm Assessment: Status post evacuation of intramuscular and subcutaneous hematoma over the right thigh measuring approximately 40 cm x 30 cm x 30 cm with excisional debridement and irrigation. Right thigh pain Status post fall Hyperlipidemia COPD History of cancer Asthma Thyroid disorder History of multiple surgical interventions Difficulty taking care of herself in the outpatient setting Plan: 1. Patient is status post evacuation of intramuscular and subcutaneous hematoma over the right thigh measuring approximately 40 cm x 30 cm x 30 cm with excisional debridement and irrigation. Postoperatively she has had improvement of her right thigh pain. She did have some drainage from the wound with the drain intact of approximate 75 mL his last night. Dressing has been changed and drain has been discontinued. There is no active drainage from the surgical site. Siobhan remain intact. Patient's pain is well-controlled over her right thigh. She is weightbearing as tolerated on the right lower extremity. Given the patient's significant progress, patient does feel she is ready for discharge. She does have some difficulty taking care of herself an outpatient setting. Nursing states the patient will plan to be discharged to an extended care facility at the time of discharge. We did discuss from an orthopedic standpoint patient will be cleared for discharge today, 12/28/2020. If the patient is able to be discharged today, we will plan to have the patient follow- up with Vin Lay PA-C or Dr. Dany Streeter at [facility] in 1 week following discharge. She may continue to be weightbearing as tied on the right lower extremity. She should keep the siobhan intact over the surgical site of the right thigh. Dressing changes may be performed daily as needed. Once the surgical site remains clean and dry, patient may shower without a dressing intact. Patient may currently shower with Tegaderm dressings intact. 2. Patient will continue be seen and examined by other medical providers including medicine for her other medical diagnoses
--- NOTE | 2020-12-28 12:47 | P.PN ---
Subjective Progress Note Date: 12/28/20 CHIEF COMPLAINT: Large right hip hematoma HISTORY OF PRESENT ILLNESS: Patient is status post evacuation of large right hip hematoma by Dr. Streeter. Patient denies any pain in her right hip. She reports that she just has her usual aches and pains. Denies any nausea or vomiting. She's tolerating diet. Afebrile WBC is 18.9 hemoglobin down from 9.3 to 7.9 platelets are 191 PHYSICAL EXAM: VITAL SIGNS: Reviewed. GENERAL: Well-developed in no acute distress. HEENT: No sclera icterus. Extraocular movements grossly intact. Moist buccal mucosa. Head is atraumatic, normocephalic. ABDOMEN: Soft. Nondistended. Nontender. NEUROLOGIC: Alert and oriented. Cranial nerves II through XII grossly intact. ASSESSMENT: 1. Large right hip hematoma likely secondary to her falls. Patient is status post evacuation of hematoma by Dr. Streeter 2. History of pelvic fracture 3. Polysubstance abuse PLAN: -Continue supportive care -Continue to monitor hemoglobin -No surgical intervention planned from a general surgical standpoint Physician [place] Operator note has been reviewed by physician. Signing provider agrees with the documented findings, assessment, and plan of care. Objective - Vital Signs Vital signs: Vital Signs Temp 97.9 F 12/28/20 05:00 Pulse 75 12/28/20 05:00 Resp 18 12/28/20 05:00 BP 116/73 12/28/20 05:00 Pulse Ox 99 12/28/20 05:00 Intake & Output 12/27/20 12/28/20 12/28/20 18:59 06:59 18:59 Intake Total 700 900 Output Total 10 75 Balance 690 825 Weight 54 kg Intake: IV 600 Intake, IV Titration 100 900 Amount ACETAMINOPHEN IV (For NPO 100 ) 1,000 mg In Empty Bag 1 bag @ 400 mls/hr IVPB ONCE [facility] Rx#:[id number] Levofloxacin 750Mg-D5w 150 Pmx 750 mg In Dextrose/ Water 1 150ml.bag @ 100 mls/hr IVPB Q24H [facility] Rx#: [id number] Sodium Chloride 0.9% 1, 750 000 ml @ 75 mls/hr IV . [id number] [facility] Rx#:[id number] Output: Drainage 75 Right Upper Thigh 75 Estimated Blood Loss 10 Other: Voiding Method Toilet Bedside Commode Bedside Commode Diaper # Voids 1 - Labs CBC & Chem 7: 12/28/20 06:13 12/27/20 07:17 Labs: Abnormal Lab Results - Last 24 Hours (Table) 12/27/20 12/27/20 12/27/20 Range/Units 07:17 12:22 21:08 WBC 18.7 H 19.2 H (3.8-10.6) k/uL RBC 3.32 L 3.06 L (3.80-5.40) m/uL Hgb 9.5 L 9.3 L (11.4-16.0) gm/dL Hct 30.2 L 27.7 L (34.0-46.0) % RDW 20.8 H 20.7 H (11.5-15.5) % Neutrophils # 13.5 H 16.3 H (1.3-7.7) k/uL Lymphocytes # 0.9 L (1.0-4.8) k/uL Monocytes # 2.2 H 1.3 H (0-1.0) k/uL Basophils # 0.3 H (0-0.2) k/uL Iron 36 L (50-170) ug/dL 12/28/20 Range/Units 06:13 WBC 18.9 H (3.8-10.6) k/uL RBC 2.74 L (3.80-5.40) m/uL Hgb 7.9 L (11.4-16.0) gm/dL Hct 25.2 L (34.0-46.0) % RDW 21.2 H (11.5-15.5) % Neutrophils # (1.3-7.7) k/uL Lymphocytes # (1.0-4.8) k/uL Monocytes # (0-1.0) k/uL Basophils # (0-0.2) k/uL Iron (50-170) ug/dL Microbiology - Last 24 Hours (Table) 12/27/20 18:45 Gram Stain - Preliminary Thigh - Right Wound Culture - Preliminary 12/27/20 18:45 Anaerobic Culture - Preliminary Thigh - Right
[2020-12-28 13:20] LABS: African American GFR (CKD) 110.9 (60.0-200.0); Anion Gap 6.8 mmol/L (4.00-12.00); BUN/Creat Ratio 21.67 Ratio (12.00-20.00); Calcium 7.4 mg/dL (8.7-10.3); Carbon Dioxide 25.2 mmol/L (21.6-31.8); Non-African American GFR(CKD) 95.7 (60.0-200.0); Potassium 3.9 mmol/L (3.5-5.5)
--- NOTE | 2020-12-28 13:24 | P.PN ---
<Bowen Thacker - Last Filed: 12/28/20 14:23> Subjective Progress Note Date: 12/28/20 Hospital course: Patient is a 65-year-old female with a past medical history significant for po lysubstance abuse, COPD home oxygen dependent, obstructive sleep apnea, GERD and hypothyroidism. Patient presented to the hospital on 12/21/20 with a chief complaint of weakness and frequent falls at home after reportedly overdosing on prescription medications morphine, gabapentin, and tramadol. Patient was fully worked up in the emergency department resulting in admission under our services for polysubstance abuse with overdose, acute kidney injury, mild anemia, and hypokalemia. Urine drug screen positive for barbiturates. Patient had greater than 4 g drop in hemoglobin from 11.5 down to 7. 1 over a 4 day period. Patient was transfused with 1 unit PRBCs and was worked up for bleeding had hematoma noted on right hip in which a CT abdomen and pelvis was completed showing subacute healing fractures of the right superior and inferior pubic rami with a large subcutaneous soft tissue hematoma measuring at least 10.0 x 8.2 cm lateral to the right hip, moderate stool burden, and mild generalized ansarca change. X- ray right hip, pelvis, and right femur showing focal soft tissue protuberance lateral to the right hip better characterized on CT is a hematoma, healing subacute fractures of the right superior and inferior pubic rami, and osteopenia without additional fracture. Patient underwent evacuation of right hip hematoma on 12/27/20. Physical exam: Patient was seen and fully evaluated at the bedside this morning. She was resting comfortably. Postsurgical dressing to right hip from surgical evacuation of hematoma intact, no bleeding or drainage noted.patient denies having any complaints this morningincluding headache, lightheadedness, dizziness, chest pain or palpitations, shortness of breath, or experiencing any numbness/tingling/weakness in her extremities. Morning Hemoglobin was 7.9, we will continue to monitor closely. Plan is for patient to be discharged to [facility] for rehabilitation. General: non toxic, no distress, appears at stated age Derm: warm, dry. postsurgical dressing right hip clean, dry, and intact. Head: atraumatic, normocephalic, symmetric Eyes: EOMI, no lid lag, anicteric sclera Mouth: no lip lesion, mucus membranes moist Cardiovascular: S1S2 reg, murmur present. positive posterior tibial pulses bilaterally. Lungs: Respirations even, regular, and unlabored on baseline 4 L O2 via nasal cannula. Lungs diminished at bilateral bases. No rhonchi, wheezes, or rales noted at this time. No accessory muscle use. Abdominal: Soft, nontender to palpation, no guarding, no appreciable organomegaly. Ext: No gross muscle atrophy, no edema, no contractures. Walking boot left foot. Neuro: CN II-XI grossly intact, no focal neuro deficits Psych: Alert, oriented, appropriate affect Plan of care: Hematoma of right hip with subacute healing fractures of the right superior and inferior pubic rami resulting in acute blood loss anemia with transfusion of 1 unit PRBCs, status post surgical hematoma evacuation (postop day 1) -CT abdomen and pelvis showing subacute healing fractures of the right superior and inferior pubic rami with a large subcutaneous soft tissue hematoma measuring at least 10.0 x 8.2 cm lateral to the right hip, moderate stool burden, and mild generalized ansarca change. -X-ray right hip, pelvis, and right femur showing focal soft tissue protuberance lateral to the right hip better characterized on CT is a hematoma, healing subacute fractures of the right superior and inferior pubic rami, and osteopenia without additional fracture. -Gen. surgery following. -Orthopedic surgery following and took patient to OR on 12/27/20 for surgical evacuation of hematoma -symptomatic care and pain managment. -D/C'd lovenox and DVT prophylaxis with SCDs. -Plan for discharge to SNF for rehabilitation, awaiting insurance approval. Acute metabolic encephalopathy secondary to Polysubstance abuse with overdose, resolved -Urine drug screen positive for barbiturates. -CT head and cervical spine negative for acute findings. -Patient was seen and fully evaluated by psychiatry whom stated patient does not have competency to make her own decisions. Patient's daughter and DPOA assuming medical decision making. Pt has been cleared by psychiatry for transfer to SNF. Leukocytosis secondary to suspected pneumonia, improving after initiation of IV antibiotics -Improving to 24.9 from previous 18.9. -Chest x-ray revealing chronic elevation of the hemidiaphragms probable basilar atelectasis difficult to exclude pneumonia versus scarring. -Patient being started on ciprofloxacin at this time for treatment of pneumonia -Incentive spirometry -Oxygenation supplementation as needed to maintain SpO2 equal to or greater than 92% with goal to wean back to baseline 5 L O2. Patient currently on 5 L. Hypothyroidism -TSH 60.500 and free T4 less than 0.07. -Significantly Abnormal thyroid function likely secondary to patient's noncompliance with daily medication regimen. -We will resume patient's Synthroid 200 g daily and patient to follow-up closely outpatient for continued long-term monitoring and management. Acute kidney injury, resolved. Hypokalemia, resolved CODE STATUS: DO NOT RESUSCITATE/DO NOT INTUBATE DVT prophylaxis: SCDs Discussed with: Patient and RN Anticipated discharge date: Clinical course to determine Anticipated discharge place: Inpatient psychiatric facility A total of 45 minutes was spent on the care of this complex patient more than 50% of the time was spent in counseling and care coordination. Objective - Vital Signs Vital signs: Vital Signs Temp 97.9 F 12/28/20 05:00 Pulse 75 12/28/20 05:00 Resp 18 12/28/20 05:00 BP 116/73 12/28/20 05:00 Pulse Ox 99 12/28/20 05:00 Intake & Output 12/27/20 12/28/20 12/28/20 18:59 06:59 18:59 Intake Total 700 900 Output Total 10 75 Balance 690 825 Weight 54 kg Intake: IV 600 Intake, IV Titration 100 900 Amount ACETAMINOPHEN IV (For NPO 100 ) 1,000 mg In Empty Bag 1 bag @ 400 mls/hr IVPB ONCE [facility] Rx#:[id number] Levofloxacin 750Mg-D5w 150 Pmx 750 mg In Dextrose/ Water 1 150ml.bag @ 100 mls/hr IVPB Q24H [facility] Rx#: [id number] Sodium Chloride 0.9% 1, 750 000 ml @ 75 mls/hr IV . [id number] [facility] Rx#:[id number] Output: Drainage 75 Right Upper Thigh 75 Estimated Blood Loss 10 Other: Voiding Method Toilet Bedside Commode Diaper # Voids 1 - Labs CBC & Chem 7: 12/28/20 06:13 12/28/20 06:13 Labs: Abnormal Lab Results - Last 24 Hours (Table) 12/27/20 12/27/20 12/27/20 Range/Units 07:17 12:22 21:08 WBC 18.7 H 19.2 H (3.8-10.6) k/uL RBC 3.32 L 3.06 L (3.80-5.40) m/uL Hgb 9.5 L 9.3 L (11.4-16.0) gm/dL Hct 30.2 L 27.7 L (34.0-46.0) % RDW 20.8 H 20.7 H (11.5-15.5) % Neutrophils # 13.5 H 16.3 H (1.3-7.7) k/uL Lymphocytes # 0.9 L (1.0-4.8) k/uL Monocytes # 2.2 H 1.3 H (0-1.0) k/uL Basophils # 0.3 H (0-0.2) k/uL Iron 36 L (50-170) ug/dL 12/28/20 Range/Units 06:13 WBC 18.9 H (3.8-10.6) k/uL RBC 2.74 L (3.80-5.40) m/uL Hgb 7.9 L (11.4-16.0) gm/dL Hct 25.2 L (34.0-46.0) % RDW 21.2 H (11.5-15.5) % Neutrophils # (1.3-7.7) k/uL Lymphocytes # (1.0-4.8) k/uL Monocytes # (0-1.0) k/uL Basophils # (0-0.2) k/uL Iron (50-170) ug/dL Microbiology - Last 24 Hours (Table) 12/27/20 18:45 Gram Stain - Preliminary Thigh - Right Wound Culture - Preliminary 12/27/20 18:45 Anaerobic Culture - Preliminary Thigh - Right <Gricelda Sullivan A - Last Filed: 12/28/20 15:07> Objective - Vital Signs Vital signs: Vital Signs Temp 97.9 F 12/28/20 13:09 Pulse 85 12/28/20 13:09 Resp 18 12/28/20 13:09 BP 115/67 12/28/20 13:09 Pulse Ox 97 12/28/20 13:09 Intake & Output 12/27/20 12/28/20 12/28/20 18:59 06:59 18:59 Intake Total 700 900 Output Total 10 75 Balance 690 825 Weight 54 kg Intake: IV 600 Intake, IV Titration 100 900 Amount ACETAMINOPHEN IV (For NPO 100 ) 1,000 mg In Empty Bag 1 bag @ 400 mls/hr IVPB ONCE [facility] Rx#:[id number] Levofloxacin 750Mg-D5w 150 Pmx 750 mg In Dextrose/ Water 1 150ml.bag @ 100 mls/hr IVPB Q24H [facility] Rx#: [id number] Sodium Chloride 0.9% 1, 750 000 ml @ 75 mls/hr IV . [id number] [facility] Rx#:[id number] Output: Drainage 75 Right Upper Thigh 75 Estimated Blood Loss 10 Other: Voiding Method Toilet Bedside Commode Bedside Commode Diaper # Voids 1 - Labs CBC & Chem 7: 12/28/20 06:13 12/28/20 06:13 Labs: Abnormal Lab Results - Last 24 Hours (Table) 12/27/20 12/27/20 12/28/20 Range/Units 07:17 21:08 06:13 WBC 19.2 H 18.9 H (3.8-10.6) k/uL RBC 3.06 L 2.74 L (3.80-5.40) m/uL Hgb 9.3 L 7.9 L (11.4-16.0) gm/dL Hct 27.7 L 25.2 L (34.0-46.0) % RDW 20.7 H 21.2 H (11.5-15.5) % Neutrophils # 16.3 H (1.3-7.7) k/uL Lymphocytes # 0.9 L (1.0-4.8) k/uL Monocytes # 1.3 H (0-1.0) k/uL Basophils # 0.3 H (0-0.2) k/uL BUN/Creatinine Ratio (12.00-20.00) Ratio Calcium (8.7-10.3) mg/dL Iron 36 L (50-170) ug/dL 12/28/20 Range/Units 06:13 WBC (3.8-10.6) k/uL RBC (3.80-5.40) m/uL Hgb (11.4-16.0) gm/dL Hct (34.0-46.0) % RDW (11.5-15.5) % Neutrophils # (1.3-7.7) k/uL Lymphocytes # (1.0-4.8) k/uL Monocytes # (0-1.0) k/uL Basophils # (0-0.2) k/uL BUN/Creatinine Ratio 21.67 H (12.00-20.00) Ratio Calcium 7.4 L (8.7-10.3) mg/dL Iron (50-170) ug/dL Microbiology - Last 24 Hours (Table) 12/27/20 18:45 Gram Stain - Preliminary Thigh - Right Wound Culture - Preliminary 12/27/20 18:45 Anaerobic Culture - Preliminary Thigh - Right Assessment and Plan Assessment: Patient seen and examined independently. Patient was also seen by Bowen Thacker NP and case was discussed. I am in agreement with subjective, physical exam, assessment and plan as written above and amended below. Pain in her leg is better. She states she wants to go home. We discussed that this is not a viable option for her at she is quite weak. Patient has been seen by psychiatry has been deemed not to have decision-making capacity. She has a daughter who is already POA. She will service her surrogate decision maker. General: non toxic, no distress, appears at stated age Derm: Dressing in place over right thigh, warm, dry Head: atraumatic, normocephalic, symmetric Eyes: EOMI, no lid lag, anicteric sclera Mouth: no lip lesion, mucus membranes moist Cardiovascular: S1S2 reg, no murmur, positive posterior tibial pulse bilateral, Lungs: CTA bilateral, no rhonchi, no rales , no accessory muscle use Abdominal: soft, nontender to palpation, no guarding, no appreciable organomegaly Psych: Alert, oriented, does not understand the severity of her current situation
[2020-12-28] MEDS: predniSONE 5 MG TAB PO SCH (13:34)
--- NOTE | 2020-12-28 13:35 | P.PN ---
Progress Note - Text Progress Note Date: 12/28/20 Interval History: Patient is status post evacuation of hematoma by Dr. Streeter. Patient reports that she is feeling "pretty good." She is not reporting any issues with depression or anxiety at this time. She is not reporting any suicidal or homicidal ideation, intention, and/or plan. She is not having any auditory or visualizations. He denies any paranoia or other delusions. Patient reports that she has had no issues with appetite. She reports that she has been able to sleep well. She's been adherent with medications and is not reporting any significant side effects at this time. Objective: Vital Signs Temp 97.9 F 12/28/20 05:00 Pulse 75 12/28/20 05:00 Resp 18 12/28/20 05:00 BP 116/73 12/28/20 05:00 Pulse Ox 99 12/28/20 05:00 Intake & Output 12/27/20 12/28/20 12/28/20 18:59 06:59 18:59 Intake Total 700 900 Output Total 10 75 Balance 690 825 Weight 54 kg Intake: IV 600 Intake, IV Titration 100 900 Amount ACETAMINOPHEN IV (For NPO 100 ) 1,000 mg In Empty Bag 1 bag @ 400 mls/hr IVPB ONCE [facility] Rx#:[id number] Levofloxacin 750Mg-D5w 150 Pmx 750 mg In Dextrose/ Water 1 150ml.bag @ 100 mls/hr IVPB Q24H [facility]S INCLUDE 234 BEDS AT THE [facility] Rx#: [id number] Sodium Chloride 0.9% 1, 750 000 ml @ 75 mls/hr IV . [id number] COUNTS INCLUDE 234 BEDS AT THE [facility] Rx#:[id number] Output: Drainage 75 Right Upper Thigh 75 Estimated Blood Loss 10 Other: Voiding Method Toilet Bedside Commode Bedside Commode Diaper # Voids 1 Laboratory Results - Last 24 Hours 12/27/20 12/27/20 12/28/20 07:17 21:08 06:13 WBC 19.2 H 18.9 H RBC 3.06 L 2.74 L Hgb 9.3 L 7.9 L Hct 27.7 L 25.2 L MCV 90.6 92.0 MCH 30.4 28.8 MCHC 33.5 31.3 RDW 20.7 H 21.2 H Plt Count 187 191 MPV 8.6 8.2 Neutrophils % 85 Lymphocytes % 5 Monocytes % 7 Eosinophils % 1 Basophils % 2 Neutrophils # 16.3 H Lymphocytes # 0.9 L Monocytes # 1.3 H Eosinophils # 0.1 Basophils # 0.3 H Hypochromasia Slight Slight Poikilocytosis Slight Slight Anisocytosis Moderate Moderate Sodium Potassium Chloride Carbon Dioxide Anion Gap BUN Creatinine Est GFR (CKD-EPI)AfAm Est GFR (CKD-EPI)NonAf BUN/Creatinine Ratio Glucose Calcium Iron 36 L TIBC 298 % Saturation 12.08 Ferritin 36.7 12/28/20 06:13 WBC RBC Hgb Hct MCV MCH MCHC RDW Plt Count MPV Neutrophils % Lymphocytes % Monocytes % Eosinophils % Basophils % Neutrophils # Lymphocytes # Monocytes # Eosinophils # Basophils # Hypochromasia Poikilocytosis Anisocytosis Sodium 137 Potassium 3.9 Chloride 105 Carbon Dioxide 25.2 Anion Gap 6.80 BUN 13.0 Creatinine 0.6 Est GFR (CKD-EPI)AfAm 110.9 Est GFR (CKD-EPI)NonAf 95.7 BUN/Creatinine Ratio 21.67 H Glucose 101 Calcium 7.4 L Iron TIBC % Saturation Ferritin Mental Status Exam: General Appearance: Patient appears to be her stated age, dressed in hospital gown, wearing glasses. She is a very thin and frail build. Behavior: Patient is calmly lying in bed without any agitated behavior. Eye contact is appropriate. Psychomotor activity is normal. Speech: Speech is spontaneous, normal rate, tone, volume, and fluency. Mood/Affect: Patient reports her mood is "pretty good." Affect is euthymic with appropriate range. Suicidality/Homicidality: patient vehemently denies any suicidal or homicidal ideation, intention, and/or plan. Perceptions: patient reports no auditory or visual hallucinations. Though content/process: no delusional thought content is endorsed. Thought process is linear and logical and short conversation. Memory and concentration: patient appears to be alert and oriented in all spheres at this time. Concentration is grossly intact to purposes of this session. Judgment and insight: poor at baseline Assessment Depressive disorder, unspecified, rule out adjustment disorder vs major depressive disorder Rule out substance use disorder Plan: -At this time patient DOES NOT meet criteria for inpatient psychiatric admission. She is currently not reporting any acute issues and need to be addressed psychiatric unit. She not stressing an imminent risk of harm to self or others. She does not appear to be acutely psychotic and responds appropriately to this provider. -Delirium precautions recommended with patient including - avoiding use of narcotics and [employer] sedatives, limit anticholinergic medications when possible, frequent re-orientation, minimize use of restraints, open window shades during the day and close them at night -Medications: Continue melatonin 3 mg daily at bedtime for sleep Continue Cymbalta 20 mg bid for anxiety/mood. Continue Remeron 30 mg daily at bedtime for depression/insomnia/appetite. -SW to look into rehab placement after she has her surgery today as patient apparently has unsteady gait and has a hx of falls. From there patient cannot live on her own and care for herself or take her medications properly and snf alf placement should be looked at. -Psychiatry will sign off at this time. Thank you for letting us participate in this patient's care. Please contact us if any questions or re-consult us if necessary.
[2020-12-28] MEDS: HYDROcodone/APAP 5-325MG 1 EACH TAB PO PRN ×2 (14:25→20:20)
[2020-12-28] MEDS: MELATONIN 3 MG TABLET PO SCH (20:21)
[2020-12-28] MEDS: ATORVASTATIN 20 MG TAB PO SCH (20:21)
[2020-12-28] MEDS: MIRTAZAPINE 15 MG TAB PO SCH (20:23)
[2020-12-28] MEDS: LEVOFLOXACIN 750MG-D5W PMX 750 MG in DEXTROSE/WATER 1 150ML.BAG IVPB SCH (20:23)
[2020-12-28] MEDS: MONTELUKAST 10 MG TAB PO SCH (20:28)
[2020-12-29] MEDS: HYDROcodone/APAP 5-325MG 1 EACH TAB PO PRN ×4 (02:55→23:34)
[2020-12-29] MEDS: LEVOTHYROXINE 100 MCG TAB PO SCH (06:24)
[2020-12-29 07:35] LABS: Anisocytosis Moderate; HCT 24.7 % (34.0-46.0); HGB 8.2 gm/dL (11.4-16.0); Hypochromasia Slight; MCH 30.5 pg (25.0-35.0); MCHC 33.3 g/dL (31.0-37.0); MCV 91.5 fL (80.0-100.0); Mean Platelet Volume 8.6; Microcytosis Slight; Platelet Count 194 k/uL (150-450); Poikilocytosis Slight; RDW 21.1 % (11.5-15.5)
[2020-12-29 08:05] LABS: African American GFR (CKD) >90 (>60 ml/min/1.73 sqM); Anion Gap 6 mmol/L; Blood Urea Nitrogen 13 mg/dL (7-17); Carbon Dioxide 24 mmol/L (22-30); Chloride 108 mmol/L (98-107); Glucose 83 mg/dL (74-99); Magnesium 2.1 mg/dL (1.6-2.3); Non-African American GFR(CKD) >90 (>60 ml/min/1.73 sqM); Potassium 3.5 mmol/L (3.5-5.1); Sodium 138 mmol/L (137-145)
[2020-12-29] MEDS: SYMBICORT 160-4.5 MCG INHALER INHALATION SCH ×2 (08:48→20:59)
[2020-12-29] MEDS: PRIMIDONE 50 MG TAB PO SCH ×3 (09:08→21:44)
[2020-12-29] MEDS: GABAPENTIN 100 MG CAP PO SCH ×3 (09:08→21:44)
[2020-12-29] MEDS: DULoxetine HCL 20 MG CAPSULE.DR PO SCH ×2 (09:08→20:31)
[2020-12-29] MEDS: TOPIRAMATE 100 MG TAB PO SCH ×2 (09:08→20:32)
[2020-12-29] MEDS: SODIUM CHLORIDE 0.9% 1,000 ML IV SCH ×2 (10:25→23:31)
--- NOTE | 2020-12-29 12:33 | P.PN ---
Progress Note - Text Progress Note Date: 12/29/20 Orthopedics: History of present illness: Patient is a pleasant 65-year-old female who is seen at the bedside for further evaluation regards to her right thigh. She is status post evacuation of intramuscular and subcutaneous hematoma over the right thigh measuring approximately 40 cm x 30 cm x 30 cm with excisional debridement and irrigation. She had an injury to her right thigh status post fall. Postoperatively she continues to feel her right thigh pain has significant improvement. Her dressing was changed and drain was removed yesterday. Her surgical site has remained clean and dry with no blood on the dressing. Patient states again tod ay she feels her symptoms are well improved and she would like to be discharged today. There is some discussion about discharging rehabilitation facility yesterday. Patient adamantly states she is unwilling to go to a rehabilitation facility. 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 These medications are prescribed by Dr. Casas in [place], [place]. She states she is willing to be discharged home with home health but will not go to a rehab facility. There has been some concern by the family over the patient's ability to take care of herself at home. Patient's other past medical history does include hyperlipidemia, COPD, asthma, history of cancer, thyroid disorder, and history of multiple surgical interventions. Medicine is also following the patient for anemia in which her hemoglobin has had some slight improvement today as compared to yesterday. Physical Exam: Patient is awake, alert, and oriented 3 Vital signs stable Adequate chest excursion with deep inspiration and expiration Dressing over the right thigh is clean, dry, and intact; no active drainage; no obvious sign of infection at the right thigh 7 siobhan remain intact over the incisional wound site over the right lateral thigh Evidence of depression and the thigh at the site of the evacuation of hematoma Significant bruising around the right lateral thigh No significant pain on palpation over the right thigh Neurovascularly intact right lower extremity Patient is able to perform active dorsiflexion and plantarflexion of right lower extremity without difficulty Calves are soft nontender; no evidence of DVT Dressing is reapplied over the surgical site with Adaptic, nonstick Telfa, and Tegaderm Pertinent studies: Cultures sent for the right thigh with gram stain and aerobic wound culture: Preliminary results show no organisms seen, no polymorphonuclear leukocytes, no growth after 24 hours. Anaerobic wound cultures: Have not been resulted. Assessment: Status post evacuation of intramuscular and subcutaneous hematoma over the right thigh measuring approximately 40 cm x 30 cm x 30 cm with excisional debridement and irrigation. Right thigh pain Status post fall Autoimmune enzyme deficiency Self-administered Hizentra infusions at home every 2 weeks Anemia Hyperlipidemia COPD History of cancer Asthma Thyroid disorder History of multiple surgical interventions Difficulty taking care of herself in the outpatient setting Plan: 1. Patient is status post evacuation of intramuscular and subcutaneous hematoma over the right thigh measuring approximately 40 cm x 30 cm x 30 cm with excisional debridement and irrigation. Postoperatively she has had improvement of her right thigh pain. Drain was removed from the surgical site yesterday. The dressing was reapplied. This dressing has remained clean, dry, and intact with no active drainage from the surgical site. [place] remain intact. Patient's pain is well-controlled over her right thigh. She is weightbearing as tolerated on the right lower extremity. Given the patient's significant progress, patient does feel she is ready for discharge. She does have some difficulty taking care of herself an outpatient setting. Nursing states the pat ient will plan to be discharged to an extended care facility at the time of discharge but the patient states adamantly at the bedside she will not be discharged to a rehabilitation facility as she feels it puts her jeopardy and health. She states she has an autoimmune enzyme deficiency and self administers Hizentra infusions at home every 2 [address] prescribed [address] Casas in [place], [place]. She did states she would be willing to be discharged home with home health care. This was discussed with nursing who is planning further discussion with medicine on the discharge plan for the patient. From orthopedic standpoint, patient is clear for discharge. We will plan to have the patient follow-up with Vin Lay PA-C or Dr. Dany Streeter at [facility] in 1 week following discharge. She may continue to be weightbearing as tied on the right lower extremity. She should keep the siobhan intact over the surgical site of the right thigh. Dressing changes may be performed daily as needed. Once the surgical site remains clean and dry, patient may shower without a dressing intact. Patient may currently shower with Tegaderm dressings intact. 2. Patient will continue be seen and examined by other medical providers including medicine for her other medical diagnoses including anemia
[2020-12-29] MEDS: predniSONE 5 MG TAB PO SCH (12:55)
--- NOTE | 2020-12-29 13:27 | P.PN ---
<Bowen Thacker - Last Filed: 12/29/20 13:21> Subjective Progress Note Date: 12/29/20 Hospital course: Patient is a 65-year-old female with a past medical history significant for po lysubstance abuse, COPD home oxygen dependent, obstructive sleep apnea, GERD and hypothyroidism. Patient presented to the hospital on 12/21/20 with a chief complaint of weakness and frequent falls at home after reportedly overdosing on prescription medications morphine, gabapentin, and tramadol. Patient was fully worked up in the emergency department resulting in admission under our services for polysubstance abuse with overdose, acute kidney injury, mild anemia, and hypokalemia. Urine drug screen positive for barbiturates. Patient had greater than 4 g drop in hemoglobin from 11.5 down to 7. 1 over a 4 day period. Patient was transfused with 1 unit PRBCs and was worked up for bleeding had hematoma noted on right hip in which a CT abdomen and pelvis was completed showing subacute healing fractures of the right superior and inferior pubic rami with a large subcutaneous soft tissue hematoma measuring at least 10.0 x 8.2 cm lateral to the right hip, moderate stool burden, and mild generalized ansarca change. X- ray right hip, pelvis, and right femur showing focal soft tissue protuberance lateral to the right hip better characterized on CT is a hematoma, healing subacute fractures of the right superior and inferior pubic rami, and osteopenia without additional fracture. Patient underwent evacuation of right hip hematoma on 12/27/20. Physical exam: Patient was seen and fully evaluated at the bedside this morning. She was resting comfortably. Postsurgical dressing to right hip from surgical evacuation of hematoma intact, no bleeding or drainage noted.patient denies having any complaints this morningincluding headache, lightheadedness, dizziness, chest pain or palpitations, shortness of breath, or experiencing any numbness/tingling/weakness in her extremities. Morning Hemoglobin was 7.9, we will continue to monitor closely. Plan is for patient to be discharged to [facility] for rehabilitation. General: non toxic, no distress, appears at stated age Derm: warm, dry. postsurgical dressing right hip clean, dry, and intact. Head: atraumatic, normocephalic, symmetric Eyes: EOMI, no lid lag, anicteric sclera Mouth: no lip lesion, mucus membranes moist Cardiovascular: S1S2 reg, murmur present. positive posterior tibial pulses bilaterally. Lungs: Respirations even, regular, and unlabored on baseline 4 L O2 via nasal cannula. Lungs diminished at bilateral bases. No rhonchi, wheezes, or rales noted at this time. No accessory muscle use. Abdominal: Soft, nontender to palpation, no guarding, no appreciable organomegaly. Ext: No gross muscle atrophy, no edema, no contractures. Walking boot left foot. Neuro: CN II-XI grossly intact, no focal neuro deficits Psych: Alert, oriented, appropriate affect Plan of care: Hematoma of right hip with subacute healing fractures of the right superior and inferior pubic rami resulting in acute blood loss anemia with transfusion of 1 unit PRBCs, status post surgical hematoma evacuation (postop day 1) -CT abdomen and pelvis showing subacute healing fractures of the right superior and inferior pubic rami with a large subcutaneous soft tissue hematoma measuring at least 10.0 x 8.2 cm lateral to the right hip, moderate stool burden, and mild generalized ansarca change. -X-ray right hip, pelvis, and right femur showing focal soft tissue protuberance lateral to the right hip better characterized on CT is a hematoma, healing subacute fractures of the right superior and inferior pubic rami, and osteopenia without additional fracture. -Gen. surgery following, cleared patient for discharge to SNF and awaiting insurance authorization. -Orthopedic surgery following and took patient to OR on 12/27/20 for surgical evacuation of hematoma. -Symptomatic care and pain managment. -D/C'd lovenox and DVT prophylaxis with SCDs. -Plan for discharge to SNF for rehabilitation, awaiting insurance approval. Acute metabolic encephalopathy secondary to Polysubstance abuse with overdose, resolved -Urine drug screen positive for barbiturates. -CT head and cervical spine negative for acute findings. -Patient was seen and fully evaluated by psychiatry whom stated patient does not have competency to make her own decisions. Patient's daughter and DPOA assuming medical decision making. Pt has been cleared by psychiatry for transfer to SNF. Leukocytosis secondary to suspected pneumonia, improving after initiation of IV antibiotics -Improving to 16.0 from initial 26.5. -Chest x-ray revealing chronic elevation of the hemidiaphragms probable basilar atelectasis difficult to exclude pneumonia versus scarring. -Patient being started on ciprofloxacin at this time for treatment of pneumonia -Incentive spirometry -Oxygenation supplementation as needed to maintain SpO2 equal to or greater than 92% with goal to wean back to baseline 5 L O2. Patient currently on 5 L. Hypothyroidism -TSH 60.500 and free T4 less than 0.07. -Significantly Abnormal thyroid function likely secondary to patient's noncompliance with daily medication regimen. -We will continue patient's Synthroid 200 g daily and patient to follow-up closely outpatient for continued long-term monitoring and management. Acute kidney injury, resolved. Hypokalemia, resolved CODE STATUS: DO NOT RESUSCITATE/DO NOT INTUBATE DVT prophylaxis: SCDs Discussed with: Patient and RN Anticipated discharge date: Awaiting insurance authorization for discharge to SNF Anticipated discharge place: [facility] A total of 45 minutes was spent on the care of this complex patient more than 50% of the time was spent in counseling and care coordination. Objective - Vital Signs Vital signs: Vital Signs Temp 97.7 F 12/29/20 05:00 Pulse 75 12/29/20 05:00 Resp 16 12/29/20 05:00 BP 121/77 12/29/20 05:00 Pulse Ox 100 12/29/20 05:00 Intake & Output 12/28/20 12/29/20 12/29/20 18:59 06:59 18:59 Intake Total 900 750 Balance 900 750 Intake: Intake, IV Titration 900 750 Amount Sodium Chloride 0.9% 1, 900 750 000 ml @ 75 mls/hr IV . [id number] [facility] Rx#:[id number] Other: Voiding Method Bedside Commode Bedside Commode # Voids 1 1 - Labs CBC & Chem 7: 12/29/20 06:44 12/29/20 06:44 Labs: Abnormal Lab Results - Last 24 Hours (Table) 12/29/20 12/29/20 Range/Units 06:44 06:44 WBC 16.0 H (3.8-10.6) k/uL RBC 2.70 L (3.80-5.40) m/uL Hgb 8.2 L (11.4-16.0) gm/dL Hct 24.7 L (34.0-46.0) % RDW 21.1 H (11.5-15.5) % Chloride 108 H (98-107) mmol/L Calcium 8.0 L (8.4-10.2) mg/dL Microbiology - Last 24 Hours (Table) 12/27/20 18:45 Gram Stain - Preliminary Thigh - Right Wound Culture - Preliminary <Gricelda Sullivan - Last Filed: 12/29/20 15:22> Objective - Vital Signs Vital signs: Vital Signs Temp 97.7 F 12/29/20 05:00 Pulse 75 12/29/20 05:00 Resp 16 12/29/20 05:00 BP 121/77 12/29/20 05:00 Pulse Ox 100 12/29/20 05:00 Intake & Output 12/28/20 12/29/20 12/29/20 18:59 06:59 18:59 Intake Total 900 750 Balance 900 750 Intake: Intake, IV Titration 900 750 Amount Sodium Chloride 0.9% 1, 900 750 000 ml @ 75 mls/hr IV . [id number] [facility] Rx#:[id number] Other: Voiding Method Bedside Commode Bedside Commode # Voids 1 1 - Labs CBC & Chem 7: 12/29/20 06:44 12/29/20 06:44 Labs: Abnormal Lab Results - Last 24 Hours (Table) 12/29/20 12/29/20 Range/Units 06:44 06:44 WBC 16.0 H (3.8-10.6) k/uL RBC 2.70 L (3.80-5.40) m/uL Hgb 8.2 L (11.4-16.0) gm/dL Hct 24.7 L (34.0-46.0) % RDW 21.1 H (11.5-15.5) % Chloride 108 H (98-107) mmol/L Calcium 8.0 L (8.4-10.2) mg/dL Microbiology - Last 24 Hours (Table) 12/27/20 18:45 Gram Stain - Preliminary Thigh - Right Wound Culture - Preliminary Assessment and Plan Assessment: Patient seen and examined independently. Patient was also seen by Bowen Thacker NP and case was discussed. I am in agreement with subjective, physical exam, assessment and plan as written above and amended below. She denies pain in her right hip, no chest pain, no shortness of breath. General: non toxic, no distress, appears at stated age Derm: Bruising right breast unchanged, bruising right leg, warm, dry Head: atraumatic, normocephalic, symmetric Eyes: EOMI, no lid lag, anicteric sclera Mouth: no lip lesion, mucus membranes moist Cardiovascular: S1S2 reg, no murmur, positive posterior tibial pulse bilateral, Lungs: CTA bilateral, no rhonchi, no rales , no accessory muscle use Abdominal: soft, nontender to palpation, no guarding, no appreciable organomegaly Psych: Alert, oriented, appropriate affect
[2020-12-29 20:22] LABS: Anisocytosis Moderate; Basophils # (A) 0.2 k/uL (0-0.2); Basophils % (A) 1 %; Eosinophils # (A) 0.2 k/uL (0-0.7); Eosinophils % (A) 1 %; HCT 27.2 % (34.0-46.0); HGB 8.8 gm/dL (11.4-16.0); Hypochromasia Moderate; Lymphocytes # (A) 1.7 k/uL (1.0-4.8); Lymphocytes % (A) 8 %; MCH 30.1 pg (25.0-35.0); MCHC 32.4 g/dL (31.0-37.0); MCV 92.9 fL (80.0-100.0); Macrocytosis Slight; Mean Platelet Volume 8.1; Microcytosis Slight; Monocytes # (A) 1.9 k/uL (0-1.0); Monocytes % (A) 9 %; Neutrophils # (A) 15.6 k/uL (1.3-7.7); Neutrophils % (A) 78 %; Platelet Count 257 k/uL (150-450); Poikilocytosis Slight; RBC 2.93 m/uL (3.80-5.40); RDW 21.3 % (11.5-15.5); WBC 20.2 k/uL (3.8-10.6)
[2020-12-29] MEDS: ATORVASTATIN 20 MG TAB PO SCH (20:31)
[2020-12-29] MEDS: MONTELUKAST 10 MG TAB PO SCH (20:31)
[2020-12-29] MEDS: LEVOFLOXACIN 750 MG TAB PO SCH (20:31)
[2020-12-29] MEDS: MIRTAZAPINE 15 MG TAB PO SCH (20:32)
[2020-12-29] MEDS: MELATONIN 3 MG TABLET PO SCH (20:40)
[2020-12-30] MEDS: LEVOTHYROXINE 100 MCG TAB PO SCH (07:30)
[2020-12-30] MEDS: GABAPENTIN 100 MG CAP PO SCH ×3 (08:13→21:23)
[2020-12-30] MEDS: PRIMIDONE 50 MG TAB PO SCH ×3 (08:13→21:25)
[2020-12-30] MEDS: TOPIRAMATE 100 MG TAB PO SCH ×2 (08:13→21:24)
[2020-12-30] MEDS: DULoxetine HCL 20 MG CAPSULE.DR PO SCH ×2 (08:13→21:23)
[2020-12-30] MEDS: SYMBICORT 160-4.5 MCG INHALER INHALATION SCH ×2 (09:03→20:02)
--- NOTE | 2020-12-30 10:36 | P.PN ---
<Bowen Thacker - Last Filed: 12/30/20 10:32> Subjective Progress Note Date: 12/30/20 Hospital course: Patient is a 65-year-old female with a past medical history significant for po lysubstance abuse, COPD home oxygen dependent, obstructive sleep apnea, GERD and hypothyroidism. Patient presented to the hospital on 12/21/20 with a chief complaint of weakness and frequent falls at home after reportedly overdosing on prescription medications morphine, gabapentin, and tramadol. Patient was fully worked up in the emergency department resulting in admission under our services for polysubstance abuse with overdose, acute kidney injury, mild anemia, and hypokalemia. Urine drug screen positive for barbiturates. Patient had greater than 4 g drop in hemoglobin from 11.5 down to 7. 1 over a 4 day period. Patient was transfused with 1 unit PRBCs and was worked up for bleeding had hematoma noted on right hip in which a CT abdomen and pelvis was completed showing subacute healing fractures of the right superior and inferior pubic rami with a large subcutaneous soft tissue hematoma measuring at least 10.0 x 8.2 cm lateral to the right hip, moderate stool burden, and mild generalized ansarca change. X- ray right hip, pelvis, and right femur showing focal soft tissue protuberance lateral to the right hip better characterized on CT is a hematoma, healing subacute fractures of the right superior and inferior pubic rami, and osteopenia without additional fracture. Patient underwent evacuation of right hip hematoma on 12/27/20. Physical exam: Patient was seen and fully evaluated at the bedside this morning. She appeared to be resting comfortably and was eating breakfast at this time. Postsurgical dressing to right hip from surgical evacuation of hematoma intact, no bleeding or drainage noted. Patient denies having any complaints this morning including headache, lightheadedness, dizziness, chest pain or palpitations, shortness of breath, or experiencing any numbness/tingling/weakness in her extremities. Morning Hemoglobin was 8.8, we will continue to monitor closely. Plan is for patient to be discharged to [facility] for rehabilitation, awaiting insurance approval. General: non toxic, no distress, appears at stated age Derm: warm, dry. postsurgical dressing right hip clean, dry, and intact. Head: atraumatic, normocephalic, symmetric Eyes: EOMI, no lid lag, anicteric sclera Mouth: no lip lesion, mucus membranes moist Cardiovascular: S1S2 reg, murmur present. positive posterior tibial pulses bilaterally. Lungs: Respirations even, regular, and unlabored on baseline 4 L O2 via nasal cannula. Lungs diminished at bilateral bases. No rhonchi, wheezes, or rales noted at this time. No accessory muscle use. Abdominal: Soft, nontender to palpation, no guarding, no appreciable organomegaly. Ext: No gross muscle atrophy, no edema, no contractures. Walking boot left foot. Neuro: CN II-XI grossly intact, no focal neuro deficits Psych: Alert, oriented, appropriate affect Plan of care: Hematoma of right hip with subacute healing fractures of the right superior and inferior pubic rami resulting in acute blood loss anemia with transfusion of 1 unit PRBCs, status post surgical hematoma evacuation on 12/27/20 -CT abdomen and pelvis showing subacute healing fractures of the right superior and inferior pubic rami with a large subcutaneous soft tissue hematoma measuring at least 10.0 x 8.2 cm lateral to the right hip, moderate stool burden, and mild generalized ansarca change. -X-ray right hip, pelvis, and right femur showing focal soft tissue protuberance lateral to the right hip better characterized on CT is a hematoma, healing subacute fractures of the right superior and inferior pubic rami, and osteopenia without additional fracture. -Gen. surgery following, cleared patient for discharge to SNF and awaiting insurance authorization. -Orthopedic surgery following and took patient to OR on 12/27/20 for surgical evacuation of hematoma, cleared patient for discharge to SNF -Symptomatic care and pain managment. -D/C'd lovenox and DVT prophylaxis with SCDs. -Plan for discharge to SNF for rehabilitation, awaiting insurance approval. Acute metabolic encephalopathy secondary to Polysubstance abuse with overdose, resolved -Urine drug screen positive for barbiturates. -CT head and cervical spine negative for acute findings. -Patient was seen and fully evaluated by psychiatry whom stated patient does not have competency to make her own decisions. Patient's daughter and DPOA assuming medical decision making. Pt has been cleared by psychiatry for transfer to SNF. Leukocytosis secondary to suspected pneumonia, improving after initiation of IV antibiotics -WBC count 20.2, awaiting cultures hematoma drainage -Chest x-ray revealing chronic elevation of the hemidiaphragms probable basilar atelectasis difficult to exclude pneumonia versus scarring. -Continue ciprofloxacin -Incentive spirometry -Oxygenation supplementation as needed to maintain SpO2 equal to or greater than 92% with goal to wean back to baseline home oxygen of 5 L O2. Patient currently on 3 L. Hypothyroidism -TSH 60.500 and free T4 less than 0.07. -Significantly Abnormal thyroid function likely secondary to patient's non compliance with daily medication regimen. -We will continue patient's Synthroid 200 g daily and patient to follow-up closely outpatient for continued long-term monitoring and management. Acute kidney injury, resolved. Hypokalemia, resolved CODE STATUS: DO NOT RESUSCITATE/DO NOT INTUBATE DVT prophylaxis: SCDs Discussed with: Patient and RN Anticipated discharge date: Awaiting insurance authorization for discharge to SNF Anticipated discharge place: [facility] A total of 45 minutes was spent on the care of this complex patient more than 50% of the time was spent in counseling and care coordination. Objective - Vital Signs Vital signs: Vital Signs Temp 98.1 F 12/30/20 05:00 Pulse 75 12/30/20 05:00 Resp 18 12/30/20 05:00 BP 163/87 12/30/20 05:00 Pulse Ox 100 12/30/20 05:00 Intake & Output 12/29/20 12/30/20 12/30/20 18:59 06:59 18:59 Intake Total 900 825 Balance 900 825 Intake: Intake, IV Titration 900 825 Amount Sodium Chloride 0.9% 1, 900 825 000 ml @ 75 mls/hr IV . [id number] [facility] Rx#:[id number] Other: Voiding Method Bedside Commode Bedside Commode # Voids 2 1 - Labs CBC & Chem 7: 12/29/20 19:49 12/29/20 06:44 Labs: Abnormal Lab Results - Last 24 Hours (Table) 12/29/20 Range/Units 19:49 WBC 20.2 H (3.8-10.6) k/uL RBC 2.93 L (3.80-5.40) m/uL Hgb 8.8 L (11.4-16.0) gm/dL Hct 27.2 L (34.0-46.0) % RDW 21.3 H (11.5-15.5) % Neutrophils # 15.6 H (1.3-7.7) k/uL Monocytes # 1.9 H (0-1.0) k/uL Microbiology - Last 24 Hours (Table) 12/27/20 18:45 Anaerobic Culture - Preliminary Thigh - Right 12/27/20 18:45 Gram Stain - Final Thigh - Right Wound Culture - Final <Gricelda Sullivan - Last Filed: 12/30/20 14:29> Objective - Vital Signs Vital signs: Vital Signs Temp 97.6 F 12/30/20 12:24 Pulse 91 12/30/20 12:24 Resp 16 12/30/20 12:24 BP 120/78 12/30/20 12:24 Pulse Ox 99 12/30/20 12:24 Intake & Output 12/29/20 12/30/20 12/30/20 18:59 06:59 18:59 Intake Total 900 825 Balance 900 825 Intake: Intake, IV Titration 900 825 Amount Sodium Chloride 0.9% 1, 900 825 000 ml @ 75 mls/hr IV . [id number] [facility] Rx#:[id number] Other: Voiding Method Bedside Commode Bedside Commode Bedside Commode # Voids 2 1 - Labs CBC & Chem 7: 12/30/20 10:38 12/30/20 10:38 Labs: Abnormal Lab Results - Last 24 Hours (Table) 12/29/20 12/30/20 12/30/20 Range/Units 19:49 10:38 10:38 WBC 20.2 H 17.1 H (3.8-10.6) k/uL RBC 2.93 L 3.12 L (3.80-5.40) m/uL Hgb 8.8 L 8.9 L (11.4-16.0) gm/dL Hct 27.2 L 29.7 L (34.0-46.0) % MCHC 30.0 L (31.0-37.0) g/dL RDW 21.3 H 21.5 H (11.5-15.5) % Neutrophils # 15.6 H (1.3-7.7) k/uL Monocytes # 1.9 H (0-1.0) k/uL Potassium 3.3 L (3.5-5.1) mmol/L Chloride 108 H (98-107) mmol/L Glucose 141 H (74-99) mg/dL Microbiology - Last 24 Hours (Table) 12/27/20 18:45 Anaerobic Culture - Preliminary Thigh - Right 12/27/20 18:45 Gram Stain - Final Thigh - Right Wound Culture - Final Assessment and Plan Assessment: Patient seen and examined independently. Patient was also seen by Bowen Thacker NP and case was discussed. I am in agreement with subjective, physical exam, assessment and plan as written above and amended below. Daughters present at bedside. Patient is adamet that she cannot go 2 weeks without her injection. Daughters will need try to find med at home so it can be administered prior to transfer to [facility]. General: non toxic, no distress, appears at stated age Derm: bruising left leg and left breast, warm, dry Head: atraumatic, normocephalic, symmetric Eyes: EOMI, no lid lag, anicteric sclera Mouth: no lip lesion, mucus membranes moist Cardiovascular: S1S2 reg, no murmur, positive posterior tibial pulse bilateral, Lungs: CTA bilateral, no rhonchi, no rales , no accessory muscle use Abdominal: soft, nontender to palpation, no guarding, no appreciable organomegaly Psych: Alert, oriented, upset and anxious
[2020-12-30] MEDS: HYDROcodone/APAP 5-325MG 1 EACH TAB PO PRN ×2 (11:30→21:25)
[2020-12-30 11:48] LABS: African American GFR (CKD) >90 (>60 ml/min/1.73 sqM); Anion Gap 8 mmol/L; Blood Urea Nitrogen 10 mg/dL (7-17); Calcium 8.7 mg/dL (8.4-10.2); Carbon Dioxide 25 mmol/L (22-30); Chloride 108 mmol/L (98-107); Glucose 141 mg/dL (74-99); Non-African American GFR(CKD) >90 (>60 ml/min/1.73 sqM); Potassium 3.3 mmol/L (3.5-5.1); Sodium 141 mmol/L (137-145)
--- NOTE | 2020-12-30 11:59 | P.PN ---
Progress Note - Text Progress Note Date: 12/30/20 Postoperative day #3 Patient is seen and examined today at bedside. She is not complaining of pain at her thigh. She feels it is doing much better. She denies any numbness or tingling. Physical Exam Afebrile with stable vital signs Abdomen is soft nontender. Chest has good excursion deep and space expiration, she is on 2 L nasal cannula oxygen The incision site is clean dry and intact. No erythema there is no purulence. There is some very small swelling but there is no significant tension it appears to be healing appropriately. There is no erythema there is no drainage there is no purulence Extremities have not had neurologic change from prior to surgery. She has sustained dorsal flexion plantarflexion and EHL Calves and thighs were soft nontender without evidence of DVT. Assessment/Plan Postoperative day #3 status post evacuation of hematoma at the right thigh and intramuscularly, improving well Patient is progressing as expected from the surgery. She is making good progress and continues to be steady. We need to continue to work on discharge planning. The patient is adamant that she is not going to go to a rehab facility and she wants to go home area we'll have case management continue to work on this. We will continue to increase the patient's mobilization with therapy. We will continue pain control with oral or IV medications. We'll continue to follow patient closely.
[2020-12-30 12:02] LABS: Anisocytosis Moderate; HCT 29.7 % (34.0-46.0); HGB 8.9 gm/dL (11.4-16.0); Hypochromasia Moderate; MCH 28.6 pg (25.0-35.0); MCV 95.2 fL (80.0-100.0); Macrocytosis Slight; Mean Platelet Volume 8.1; Platelet Count 244 k/uL (150-450); Poikilocytosis Slight; RBC 3.12 m/uL (3.80-5.40); RDW 21.5 % (11.5-15.5); WBC 17.1 k/uL (3.8-10.6)
[2020-12-30] MEDS: predniSONE 5 MG TAB PO SCH (12:26)
[2020-12-30] MEDS: SODIUM CHLORIDE 0.9% 1,000 ML IV SCH (13:00)
[2020-12-30] MEDS ORDERED: POTASSIUM CHLORIDE ER 20 MEQ TAB.ER PO STA (14:18)
[2020-12-30] MEDS: LEVOFLOXACIN 750 MG TAB PO SCH (21:23)
[2020-12-30] MEDS: MIRTAZAPINE 15 MG TAB PO SCH (21:23)
[2020-12-30] MEDS: MELATONIN 3 MG TABLET PO SCH (21:24)
[2020-12-30] MEDS: ATORVASTATIN 20 MG TAB PO SCH (21:24)
[2020-12-30] MEDS: MONTELUKAST 10 MG TAB PO SCH (21:28)
[2020-12-31] MEDS: SODIUM CHLORIDE 0.9% 1,000 ML IV SCH (00:09)
[2020-12-31] MEDS: HYDROcodone/APAP 5-325MG 1 EACH TAB PO PRN ×3 (04:41→22:34)
[2020-12-31] MEDS: LEVOTHYROXINE 100 MCG TAB PO SCH (06:03)
[2020-12-31 07:15] LABS: Anisocytosis Moderate; HCT 26.6 % (34.0-46.0); HGB 8.7 gm/dL (11.4-16.0); Hypochromasia Moderate; MCH 30.6 pg (25.0-35.0); MCHC 32.9 g/dL (31.0-37.0); MCV 93.1 fL (80.0-100.0); Macrocytosis Slight; Mean Platelet Volume 7.8; Microcytosis Slight; Platelet Count 228 k/uL (150-450); Poikilocytosis Slight; RBC 2.86 m/uL (3.80-5.40); RDW 21.4 % (11.5-15.5); WBC 16.1 k/uL (3.8-10.6)
[2020-12-31] MEDS: DULoxetine HCL 20 MG CAPSULE.DR PO SCH ×2 (08:43→20:58)
[2020-12-31] MEDS: PRIMIDONE 50 MG TAB PO SCH ×3 (08:43→20:58)
[2020-12-31] MEDS: GABAPENTIN 100 MG CAP PO SCH ×3 (08:43→20:56)
[2020-12-31] MEDS: TOPIRAMATE 100 MG TAB PO SCH ×2 (08:44→20:56)
[2020-12-31] MEDS: SYMBICORT 160-4.5 MCG INHALER INHALATION SCH ×2 (08:49→20:17)
--- NOTE | 2020-12-31 11:08 | P.PN ---
Progress Note - Text Progress Note Date: 12/31/20 Postoperative day #4 Patient is seen and examined today at bedside. The patient has some pain around the surgical site as expected. Pain is being controlled with medication. She feels she is making good progress. She feels like she is slowly getting stronger. Physical Exam Afebrile with stable vital signs Abdomen is soft nontender. Chest has good excursion deep and space expiration The incision site is clean dry and intact. No erythema there is no purulence. There is no reaccumulation of the hematoma. There is some mild swelling but appears stable. Her compartments are soft. Extremities have not had neurologic change from prior to surgery.She has sustained dorsal to plantar flexion and EHL intact. Calves and thighs were soft nontender without evidence of DVT. Assessment/Plan Postoperative day #4 status post evacuation of hematoma with irrigation and excisional debridement at her right thigh patient is doing well and improving steadily. Patient is progressing as expected from the surgery. She needs to continue to get stronger. She has been having some difficulty working on her own at home and she is slated to go to rehab. We will continue to increase the patient's mobilization with therapy. She is stable from a orthopedic standpoint to be discharged home when she is cleared with medicine service. we will see her back in the office in approximately 1 week and she may increase her activity and ambulation as tolerated.
--- NOTE | 2020-12-31 11:19 | P.PN ---
Subjective Progress Note Date: 12/31/20 Hospital course: Patient is a 65-year-old female with a past medical history significant for polysubstance abuse, COPD home oxygen dependent, obstructive sleep apnea, GERD and hypothyroidism. Patient presented to the hospital on 12/21/20 with a chief complaint of weakness and frequent falls at home after reportedly overdosing on prescription medications morphine, gabapentin, and tramadol. Patient was fully worked up in the emergency department resulting in admission under our services for polysubstance abuse with overdose, acute kidney injury, mild anemia, and hypokalemia. Urine drug screen positive for barbiturates. Patient had greater than 4 g drop in hemoglobin from 11.5 down to 7. 1 over a 4 day period. Patient was transfused with 1 unit PRBCs and was worked up for bleeding had hematoma noted on right hip in which a CT abdomen and pelvis was completed showing subacute healing fractures of the right superior and inferior pubic rami with a large subcutaneous soft tissue hematoma measuring at least 10.0 x 8.2 cm lateral to the right hip, moderate stool burden, and mild generalized ansarca change. X- ray right hip, pelvis, and right femur showing focal soft tissue protuberance lateral to the right hip better characterized on CT is a hematoma, healing subacute fractures of the right superior and inferior pubic rami, and osteopenia without additional fracture. Patient underwent evacuation of right hip hematoma on 12/27/20. Physical exam: Patient was seen and fully evaluated at the bedside this morning. She appeared to be resting comfortably and was eating breakfast at this time. Postsurgical dressing to right hip from surgical evacuation of hematoma intact, no bleeding or drainage noted. Patient denies having any complaints this morning including headache, lightheadedness, dizziness, chest pain or palpitations, shortness of breath, or experiencing any numbness/tingling/weakness in her extremities. Morning Hemoglobin was 8.8, we will continue to monitor closely. Plan is for patient to be discharged to [facility] for rehabilitation, awaiting insurance approval. General: non toxic, no distress, appears at stated age Derm: warm, dry. postsurgical dressing right hip clean, dry, and intact. Head: atraumatic, normocephalic, symmetric Eyes: EOMI, no lid lag, anicteric sclera Mouth: no lip lesion, mucus membranes moist Cardiovascular: S1S2 reg, murmur present. positive posterior tibial pulses bilaterally. Lungs: Respirations even, regular, and unlabored on baseline 4 L O2 via nasal cannula. Lungs diminished at bilateral bases. No rhonchi, wheezes, or rales noted at this time. No accessory muscle use. Abdominal: Soft, nontender to palpation, no guarding, no appreciable organomegaly. Ext: No gross muscle atrophy, no edema, no contractures. Walking boot left foot. Neuro: CN II-XI grossly intact, no focal neuro deficits Psych: Alert, oriented, appropriate affect Plan of care: Hematoma of right hip with subacute healing fractures of the right superior and inferior pubic rami resulting in acute blood loss anemia with transfusion of 1 unit PRBCs, status post surgical hematoma evacuation on 12/27/20 -CT abdomen and pelvis showing subacute healing fractures of the right superior and inferior pubic rami with a large subcutaneous soft tissue hematoma measuring at least 10.0 x 8.2 cm lateral to the right hip, moderate stool burden, and mild generalized ansarca change. -X-ray right hip, pelvis, and right femur showing focal soft tissue protuberance lateral to the right hip better characterized on CT is a hematoma, healing subacute fractures of the right superior and inferior pubic rami, and osteopenia without additional fracture. -Gen. surgery following, cleared patient for discharge to SNF and awaiting insurance authorization. -Orthopedic surgery following and took patient to OR on 12/27/20 for surgical evacuation of hematoma, cleared patient for discharge to SNF for rehab -Symptomatic care and pain managment. -D/C'd lovenox and DVT prophylaxis with SCDs. -Plan for discharge to SNF for rehabilitation, awaiting insurance approval. Acute metabolic encephalopathy secondary to Polysubstance abuse with overdose, resolved however pt seen by psychiatry and deemed incompetent to make own medical decisions. -Urine drug screen positive for barbiturates. -CT head and cervical spine negative for acute findings. -Patient was seen and fully evaluated by psychiatry whom deemed patient medically incompetent to make her own decisions. Patient's daughter and DPOA assuming medical decision making. Pt has been cleared by psychiatry for transfer to SNF. Leukocytosis secondary to suspected pneumonia, improving after initiation of IV antibiotics -WBC count 16.1, awaiting cultures from hematoma drainage -Chest x-ray revealing chronic elevation of the hemidiaphragms probable basilar atelectasis difficult to exclude pneumonia versus scarring. -Continue oral levaquin -Incentive spirometry -Oxygenation supplementation as needed to maintain SpO2 equal to or greater than 92% with goal to wean back to baseline home oxygen of 5 L O2. Patient currently on 3 L. Hypothyroidism -TSH 60.500 and free T4 less than 0.07. -Significantly Abnormal thyroid function likely secondary to patient's noncompliance with daily medication regimen. -We will continue patient's Synthroid 200 g daily and patient to follow-up closely outpatient for continued long-term monitoring and management. Acute kidney injury, resolved. Hypokalemia, resolved CODE STATUS: DO NOT RESUSCITATE/DO NOT INTUBATE DVT prophylaxis: SCDs Discussed with: Patient and RN Anticipated discharge date: Awaiting insurance authorization for discharge to SNF Anticipated discharge place: [facility], [facility]. A total of 45 minutes was spent on the care of this complex patient more than 50% of the time was spent in counseling and care coordination. Objective - Vital Signs Vital signs: Vital Signs Temp 98 F 12/31/20 05:00 Pulse 75 12/31/20 05:00 Resp 20 12/31/20 05:00 BP 116/74 12/31/20 05:00 Pulse Ox 98 12/31/20 05:00 Intake & Output 12/30/20 12/31/20 12/31/20 18:59 06:59 18:59 Intake Total 1200 236 Balance 1200 236 Intake: Intake, IV Titration 900 Amount Sodium Chloride 0.9% 1, 900 000 ml @ 75 mls/hr IV . [id number] HETAL Rx#:[id number] Oral 300 236 Other: Voiding Method Bedside Commode Toilet # Voids 5 2 - Labs CBC & Chem 7: 12/31/20 06:18 12/30/20 10:38 Labs: Abnormal Lab Results - Last 24 Hours (Table) 12/30/20 12/30/20 12/31/20 Range/Units 10:38 10:38 06:18 WBC 17.1 H 16.1 H (3.8-10.6) k/uL RBC 3.12 L 2.86 L (3.80-5.40) m/uL Hgb 8.9 L 8.7 L (11.4-16.0) gm/dL Hct 29.7 L 26.6 L (34.0-46.0) % MCHC 30.0 L (31.0-37.0) g/dL RDW 21.5 H 21.4 H (11.5-15.5) % Potassium 3.3 L (3.5-5.1) mmol/L Chloride 108 H (98-107) mmol/L Glucose 141 H (74-99) mg/dL
[2020-12-31] MEDS: predniSONE 5 MG TAB PO SCH (11:30)
[2020-12-31 13:02] LABS: African American GFR (CKD) 110.9 (60.0-200.0); Anion Gap 7.5 mmol/L (4.00-12.00); BUN/Creat Ratio 21.67 Ratio (12.00-20.00); Calcium 8.4 mg/dL (8.7-10.3); Carbon Dioxide 21.5 mmol/L (21.6-31.8); Magnesium 1.8 mg/dL (1.5-2.4); Non-African American GFR(CKD) 95.7 (60.0-200.0); Potassium 3.4 mmol/L (3.5-5.5)
[2020-12-31] MEDS: MIRTAZAPINE 15 MG TAB PO SCH (20:56)
[2020-12-31] MEDS: MONTELUKAST 10 MG TAB PO SCH (20:56)
[2020-12-31] MEDS: MELATONIN 3 MG TABLET PO SCH (20:57)
[2020-12-31] MEDS: LEVOFLOXACIN 750 MG TAB PO SCH (20:58)
[2020-12-31] MEDS: ATORVASTATIN 20 MG TAB PO SCH (20:58)
[2021-01-01] MEDS: SODIUM CHLORIDE 0.9% 1,000 ML IV SCH ×2 (02:00→07:49)
[2021-01-01] MEDS: LEVOTHYROXINE 100 MCG TAB PO SCH (05:55)
[2021-01-01] MEDS: DULoxetine HCL 20 MG CAPSULE.DR PO SCH (07:20)
[2021-01-01] MEDS: GABAPENTIN 100 MG CAP PO SCH ×2 (07:20→15:34)
[2021-01-01] MEDS: PRIMIDONE 50 MG TAB PO SCH ×2 (07:20→15:34)
[2021-01-01] MEDS: TOPIRAMATE 100 MG TAB PO SCH (07:21)
[2021-01-01] MEDS ORDERED: POTASSIUM CHLORIDE ER 20 MEQ TAB.ER PO STA (07:36)
[2021-01-01] MEDS: SYMBICORT 160-4.5 MCG INHALER INHALATION SCH (08:32)
[2021-01-01] MEDS: HYDROcodone/APAP 5-325MG 1 EACH TAB PO PRN (09:07)
--- NOTE | 2021-01-01 09:32 | P.DS ---
Providers Date of admission: 12/21/20 21:43 Expected date of discharge: 01/01/21 Attending physician: Verónica Yao MD Consults: 12/21/20 21:43 Consult Physician Routine Consulting Provider: David Jack Consult Reason/Comments: suicidal? Do you want consulting provider notified?: Already Contacted 12/26/20 19:54 Consult Physician Routine Consulting Provider: Naresh Streeter Consult Reason/Comments: hip fracture, subacute Do you want consulting provider notified?: Yes 12/27/20 07:36 Consult Physician Routine Consulting Provider: Saurabh Mendoza Consult Reason/Comments: large hematoma right lateral hip Do you want consulting provider notified?: Yes Primary care physician: Maikel Johnson [facility] Course: Discharge Diagnosis: Hematoma of right hip with subacute healing fractures of the right superior and inferior pubic rami resulting in acute blood loss anemia with transfusion of 1 unit PRBCs, status post surgical hematoma evacuation on 12/27/20 Acute metabolic encephalopathy secondary to Polysubstance abuse with overdose, resolved however pt seen by psychiatry and deemed incompetent to make own medical decisions. Leukocytosis Pneumonia Hypothyroidism Acute kidney injury, resolved. Hypokalemia, resolved Hospital Course: Patient is a 65-year-old female with a past medical history significant for polysubstance abuse, COPD home oxygen dependent, obstructive sleep apnea, GERD and hypothyroidism. Patient presented to the hospital on 12/21/20 with a chief complaint of weakness and frequent falls at home after reportedly overdosing on prescription medications morphine, gabapentin, and tramadol. Patient was fully worked up in the emergency department resulting in admission under our services for polysubstance abuse with overdose, acute kidney injury, mild anemia, and hypokalemia. Urine drug screen positive for barbiturates. Patient had greater than 4 g drop in hemoglobin from 11.5 down to 7. 1 over a 4 day period. Patient was transfused with 1 unit PRBCs and was worked up for bleeding had hematoma noted on right hip in which a CT abdomen and pelvis was completed showing subacute healing fractures of the right superior and inferior pubic rami with a large subcutaneous soft tissue hematoma measuring at least 10.0 x 8.2 cm lateral to the right hip, moderate stool burden, and mild generalized ansarca change. X- ray right hip, pelvis, and right femur showing focal soft tissue protuberance lateral to the right hip better characterized on CT is a hematoma, healing subacute fractures of the right superior and inferior pubic rami, and osteopenia without additional fracture. Patient underwent evacuation of right hip hematoma on 12/27/20. Patient was seen and fully evaluated by physical therapy and occupational therapy. Patient medically stable at this time, however per psychiatry patient has been deemed incompetent to make own medical decisions. Patient's daughter, Aileen Jacobo is Power of Client Solutions Manager. Patient being discharged home in care of her daughter at this time, patient's daughter informed that patient will require 24-hour supervision and family reports they are in the process of making arrangements for 24-hour care vs [facility] home. Physical exam: Patient was seen and fully evaluated at the bedside this morning. Postsurgical dressing to right hip from surgical evacuation of hematoma remains intact, no bleeding or drainage noted. Patient denies having any complaints this morning including headache, lightheadedness, dizziness, chest pain or palpitations, shortness of breath, or experiencing any numbness/tingling/weakness in her extremities. Morning Hemoglobin was 8.8, we will continue to monitor closely. Plan is for patient to be discharged to [facility] for rehabilitation, awaiting insurance approval. General: non toxic, no distress, appears at stated age Derm: warm, dry. postsurgical dressing right hip clean, dry, and intact. Bruising right hip and right breast Head: atraumatic, normocephalic, symmetric Eyes: EOMI, no lid lag, anicteric sclera Mouth: no lip lesion, mucus membranes moist Cardiovascular: S1S2 reg, murmur present. positive posterior tibial pulses bilaterally. Lungs: Respirations even, regular, and unlabored on baseline 3 L O2 via nasal cannula. Lungs diminished at bilateral bases. No rhonchi, wheezes, or rales noted at this time. No accessory muscle use. Abdominal: Soft, nontender to palpation, no guarding, no appreciable organomegaly. Ext: No gross muscle atrophy, no edema, no contractures. Walking boot left foot. Neuro: CN II-XI grossly intact, no focal neuro deficits Psych: Alert, oriented, appropriate affect A total of 45 minutes of time were spent preparing this complex discharge summary. Patient Condition at Discharge: Fair Plan - Discharge Summary New Discharge Prescriptions: New Gabapentin [Neurontin] 100 mg PO TID cap DULoxetine HCL [Cymbalta] 20 mg PO BID 30 Days #60 capsule. Levofloxacin [Levaquin] 750 mg PO DAILY@1900 3 Days #3 tab Continue Topiramate [Topamax] 100 mg PO BID Levothyroxine Sodium [Tirosint-Carly] 200 mcg SL AC-BRKFST rOPINIRole HCL [Requip] 2 mg PO HS predniSONE 5 mg PO DAILY@1200 Rosuvastatin [Crestor] 10 mg PO HS Montelukast [Singulair] 10 mg PO HS Mirtazapine [Remeron] 30 mg PO HS Alendronate Sodium [Fosamax] 70 mg PO WE Budesonide/Formoterol Fumarate [Symbicort 160-4.5 Mcg Inhaler] 2 puff INHALATION RT-BID Albuterol Nebulized [Ventolin Nebulized] 2.5 mg INHALATION RT-QID PRN PRN Reason: Shortness Of Breath Benzonatate [Tessalon Perles] 200 mg PO TID PRN PRN Reason: Cough Primidone [Mysoline] 25 mg PO TID [facility] Infusion 20 gram SQ Q14D Ipratropium Nebulized [Atrovent Nebulized 0.2 MG/ML] 0.5 mg INHALATION RT-QID PRN PRN Reason: Shortness Of Breath Discontinued traMADol HCl [Ultram] 50 mg PO TID PRN PRN Reason: Pain Sulfamethox-Tmp 800-160Mg [Bactrim DS 800-160 mg] 1 tab PO MOWEFR@2100 Gabapentin [Neurontin] 300 mg PO TID Buprenorphine HCl [Belbuca] 300 mcg BC BID Baclofen 10 mg PO QID PRN PRN Reason: CRAMPS DULoxetine HCL [Cymbalta] 30 mg PO HS Discharge Medication List Albuterol Nebulized [Ventolin Nebulized] 2.5 mg INHALATION RT-QID PRN 06/28/20 [History] Alendronate Sodium [Fosamax] 70 mg PO WE 06/28/20 [History] Budesonide/Formoterol Fumarate [Symbicort 160-4.5 Mcg Inhaler] 2 puff INHALATION RT-BID 06/28/20 [History] Levothyroxine Sodium [Tirosint-Carly] 200 mcg SL AC-BRKFST 06/28/20 [History] Mirtazapine [Remeron] 30 mg PO HS 06/28/20 [History] Montelukast [Singulair] 10 mg PO HS 06/28/20 [History] Rosuvastatin [Crestor] 10 mg PO HS 06/28/20 [History] Topiramate [Topamax] 100 mg PO BID 06/28/20 [History] predniSONE 5 mg PO DAILY@1200 06/28/20 [History] rOPINIRole HCL [Requip] 2 mg PO HS 06/28/20 [History] Benzonatate [Tessalon Perles] 200 mg PO TID PRN 09/05/20 [History] Primidone [Mysoline] 25 mg PO TID 09/05/20 [History] [facility] Infusion 20 gram SQ Q14D 09/13/20 [History] Ipratropium Nebulized [Atrovent Nebulized 0.2 MG/ML] 0.5 mg INHALATION RT-QID PRN 12/21/20 [History] Gabapentin [Neurontin] 100 mg PO TID cap 12/24/20 [Rx] DULoxetine HCL [Cymbalta] 20 mg PO BID 30 Days #60 capsule.dr 01/01/21 [Rx] Levofloxacin [Levaquin] 750 mg PO DAILY@1900 3 Days #3 tab 01/01/21 [Rx] Follow up Appointment(s)/Referral(s): [facility], [NON-STAFF] - 1 Week Maikel Johnsno MD [Primary Care Provider] - 01/07/21 10:00 am Vin Lay PAC [PHYSICIAN INWARD TOLL OPERATOR] - 01/08/21 1:00 pm (Patient may follow-up with Vin Lay PA-C or Dr. Dany Streeter at [facility] in 1 week following discharge. ) [facility], [NON-STAFF] - 12/29/20 12:00 pm () Activity/Diet/Wound Care/Special Instructions: Activity: 1. Weight-bear as tolerated on the right lower extremity Diet: Heart healthy diet Wound Care: 1. Keep siobhan intact over the right thigh 2. Continue with daily dressing changes as needed over the right thigh; if dr madrid remains dry it may be removed in 72 hours 3. If the site remains clean and dry, patient may shower without a dressing 4. Patient may currently shower with Tegaderm dressing intact Special Instructions: Patient being discharged home in care of family, DPOA requiring 24-hour supervision. Discussed discharge plans with family, family is making arrang ements for 24-hour care versus [facility] home. . Discharge Disposition: HOME SELF-CARE
[2021-01-01] MEDS: predniSONE 5 MG TAB PO SCH (11:56)
[2021-01-01] MEDS ORDERED: IMMUNE GLOBULIN SQ ONE (12:00)
[2021-01-01 12:57] VITALS: BP 130/76; PULSE 92; RESP 18; TEMP 98.9
== END 2021-01-01 17:12 | disposition home health service (06) | DRG 907 ==
LOC: EC 19:09 → 3SCARD 21:43 → 4SSUR 12-22 05:38 → 5NMEDONC 12-22 15:00
PROVIDERS: ADMIT Internal Medicine; ATTEND Internal Medicine
PROC: 3E0234Z Introduction of Serum, Toxoid and Vaccine into Muscle, Percutaneous Approach (ICD-10-PCS; 2020-12-21)
PROC: 30233N1 Transfusion of Nonautologous Red Blood Cells into Peripheral Vein, Percutaneous Approach (ICD-10-PCS; 2020-12-26)
PROC: 0KCN0ZZ Extirpation of Matter from Right Hip Muscle, Open Approach (ICD-10-PCS; principal; 2020-12-27 16:40)
PROC: 0KBN0ZZ Excision of Right Hip Muscle, Open Approach (ICD-10-PCS; principal; 2020-12-27 16:40)
DX: T50.911A Poisoning by multiple unspecified drugs, medicaments and biological substances, accidental (unintentional), initial encounter (principal); J18.9 Pneumonia, unspecified organism; G92 Toxic encephalopathy; N17.9 Acute kidney failure, unspecified; J96.11 Chronic respiratory failure with hypoxia; E27.40 Unspecified adrenocortical insufficiency; D62 Acute posthemorrhagic anemia; J44.0 Chronic obstructive pulmonary disease with (acute) lower respiratory infection; F19.10 Other psychoactive substance abuse, uncomplicated; J98.6 Disorders of diaphragm; Z66 Do not resuscitate; Z20.822 Contact with and (suspected) exposure to COVID-19; S70.11XA Contusion of right thigh, initial encounter; S70.01XA Contusion of right hip, initial encounter; Z23 Encounter for immunization; E87.6 Hypokalemia; J45.40 Moderate persistent asthma, uncomplicated; K21.9 Gastro-esophageal reflux disease without esophagitis; E78.5 Hyperlipidemia, unspecified; G47.33 Obstructive sleep apnea (adult) (pediatric); E03.9 Hypothyroidism, unspecified; K44.9 Diaphragmatic hernia without obstruction or gangrene; M81.0 Age-related osteoporosis without current pathological fracture; G89.4 Chronic pain syndrome; M85.80 Other specified disorders of bone density and structure, unspecified site; S32.82XD Multiple fractures of pelvis without disruption of pelvic ring, subsequent encounter for fracture with routine healing; M54.5 Low back pain; G25.81 Restless legs syndrome; G25.0 Essential tremor; F32.9 Major depressive disorder, single episode, unspecified; R29.6 Repeated falls; Z91.14 Patient's other noncompliance with medication regimen; R26.81 Unsteadiness on feet; R32 Unspecified urinary incontinence; R73.03 Prediabetes; Z99.81 Dependence on supplemental oxygen; Z79.83 Long term (current) use of bisphosphonates; Z79.51 Long term (current) use of inhaled steroids; Z79.2 Long term (current) use of antibiotics; Z79.890 Hormone replacement therapy; Z79.52 Long term (current) use of systemic steroids; Z79.899 Other long term (current) drug therapy; Z77.22 Contact with and (suspected) exposure to environmental tobacco smoke (acute) (chronic); Z91.81 History of falling; Z98.1 Arthrodesis status; Z96.652 Presence of left artificial knee joint; Z90.89 Acquired absence of other organs; Z87.81 Personal history of (healed) traumatic fracture; Z85.828 Personal history of other malignant neoplasm of skin; Z90.49 Acquired absence of other specified parts of digestive tract; Z90.710 Acquired absence of both cervix and uterus; Z87.19 Personal history of other diseases of the digestive system; Z87.42 Personal history of other diseases of the female genital tract; Z87.310 Personal history of (healed) osteoporosis fracture; Z87.39 Personal history of other diseases of the musculoskeletal system and connective tissue; Z87.2 Personal history of diseases of the skin and subcutaneous tissue; Z60.2 Problems related to living alone; Z98.890 Other specified postprocedural states; W19.XXXA Unspecified fall, initial encounter; Y92.009 Unspecified place in unspecified non-institutional (private) residence as the place of occurrence of the external cause; Z88.8 Allergy status to other drugs, medicaments and biological substances; Z88.6 Allergy status to analgesic agent; Z88.1 Allergy status to other antibiotic agents; Z91.030 Bee allergy status; Z91.041 Radiographic dye allergy status; Z88.0 Allergy status to penicillin; Z91.013 Allergy to seafood; Z80.1 Family history of malignant neoplasm of trachea, bronchus and lung; Z80.3 Family history of malignant neoplasm of breast; Z80.8 Family history of malignant neoplasm of other organs or systems
CPT/HCPCS: 36410; 36415; 70450; 71045; 71046; 72125; 73502; 74176; 76937; 80048; 80053; 80143; 80179; 80306; 80320; 81001; 82140; 82550; 82728; 83540; 83550; 83605; 83735; 84439; 84443; 84484; 85025; 85027; 85610; 85730; 86850; 86900; 86901; 86920; 87070; 87075; 87205; 87635; 90471; 90715; 93005; 94640; 94760; 96365; 96375; 99285

== ENCOUNTER → 2021-03-29 | Outpatient (CLI) | payer MEDICARE ==
[2021-03-29 23:18] LABS: HCT 42.9 % (37.2-46.3); HGB 12.7 g/dL (12.0-15.0); MCH 29.3 pg (27.0-32.0); MCHC 29.6 g/dL (32.0-37.0); MCV 98.8 fL (80.0-97.0); Mean Platelet Volume 10.8 fL (9.5-12.2); Platelet Count 202 X 10*3/uL (140-440); RBC 4.34 X 10*6/uL (4.10-5.20); RDW 15.8 % (11.5-14.5); WBC 19.85 X 10*3/uL (4.50-10.00)
[2021-03-30 00:08] LABS: Basophils # (M) 0.99 X 10*3/uL (0.00-0.10); Metamyelocytes % 3 % (0-0); Monocytes # (M) 2.98 X 10*3/uL (0.20-1.00); Myelocytes % 1 % (0-0); Neutrophils % (M) 70 %
[2021-03-31 10:23] LABS: African American GFR (CKD) 77.2 (60.0-200.0); Albumin 4.5 g/dL (3.80-4.90); Albumin/Globulin Ratio 1.61 (1.60-3.17); Anion Gap 14.3 mmol/L (4.00-12.00); BUN/Creat Ratio 17.78 Ratio (12.00-20.00); Calcium 9.2 mg/dL (8.7-10.3); Carbon Dioxide 24.7 mmol/L (21.6-31.8); Chol/HDL Ratio 2.42; Globulin 2.8 g/dL (1.6-3.3); LDL Cholesterol,Calculated 79.4 mg/dL (0.0-131.0); Non-African American GFR(CKD) 66.6 (60.0-200.0); Potassium 4.8 mmol/L (3.5-5.5); T4, Free (Free Thyroxine) 0.8 ng/dL (0.80-1.80); Total Bilirubin 0.1 mg/dL (0.2-1.2); Total Protein 7.3 g/dL (6.2-8.2); VLDL Calculation 18.6 mg/dL (5.00-40.00)
== END | disposition home or self-care (01) ==
LOC: LABWHC1 14:51
PROVIDERS: ATTEND Allergy & Immunology
DX: E03.9 Hypothyroidism, unspecified (principal); E78.5 Hyperlipidemia, unspecified; D83.9 Common variable immunodeficiency, unspecified
CPT/HCPCS: 36415; 80053; 80061; 82550; 82784; 83036; 84439; 84443; 85025

== ENCOUNTER 2021-08-14 10:34 | Inpatient (IN) | payer MEDICARE ==
--- NOTE | 2021-08-14 11:11 | ED ---
General Adult HPI - General Chief complaint: Extremity Injury, Lower Stated complaint: Leg Pain Time Seen by Provider: 08/14/21 10:38 Source: patient, RN notes reviewed, old records reviewed Mode of arrival: EMS Limitations: no limitations - History of Present Illness Initial comments: 66-year-old female presenting for evaluation of right leg weakness. Patient states that her leg has been weak for approximately the past one week. She received her third coronavirus vaccine and believes that the weakness began after this injection. She denies headache. She denies any right upper extremity weakness, no speech abnormalities or facial weakness. She denies back pain but states she does have some tailbone pain status post fall. She fell twice secondary to the weakness in her right leg. The injection was in her right deltoid. No chest pain, no abdominal pain. - Related Data Home Medications Medication Instructions Recorded Confirmed Albuterol Nebulized [Ventolin 2.5 mg INHALATION RT-QID PRN 06/28/20 08/14/21 Nebulized] Alendronate Sodium [Fosamax] 70 mg PO Q7D 06/28/20 08/14/21 Budesonide/Formoterol Fumarate 2 puff INHALATION RT-BID 06/28/20 08/14/21 [Symbicort 160-4.5 Mcg Inhaler] Levothyroxine Sodium [Tirosint-Carly] 200 mcg SL AC-BRKFST 06/28/20 08/14/21 Mirtazapine [Remeron] 15 mg PO HS 06/28/20 08/14/21 Montelukast [Singulair] 10 mg PO HS 06/28/20 08/14/21 Rosuvastatin [Crestor] 10 mg PO HS 06/28/20 08/14/21 Topiramate [Topamax] 100 mg PO BID 06/28/20 08/14/21 predniSONE 5 mg PO DAILY@1200 06/28/20 08/14/21 rOPINIRole HCL [Requip] 2 mg PO HS 06/28/20 08/14/21 Primidone [Mysoline] 25 mg PO TID 09/05/20 08/14/21 Ipratropium Nebulized [Atrovent 0.5 mg INHALATION RT-QID PRN 12/21/20 08/14/21 Nebulized 0.2 MG/ML] Baclofen 10 mg PO BID PRN 08/14/21 08/14/21 Buprenorphine HCl [Belbuca] 300 mcg BUCCAL BID 08/14/21 08/14/21 DULoxetine HCL [Cymbalta] 30 mg PO HS 08/14/21 08/14/21 Diclofenac Sodium [Voltaren] 75 mg PO BID 08/14/21 08/14/21 EPINEPHrine (Auto Inject) [Epipen] 0.3 mg IM ONCE PRN 08/14/21 08/14/21 Ferrous Sulfate [Feosol] 325 mg PO DAILY 08/14/21 08/14/21 Fluticasone/Umeclidin/Vilanter 1 puff INHALATION RT-DAILY 08/14/21 08/14/21 [Trelegy Ellipta 200-62.5-25] Hizentra Infusion 20 gm SQ Q14D 08/14/21 08/14/21 Sulfamethox-Tmp 800-160Mg [Bactrim 1 tab PO MOWEFR 08/14/21 08/14/21 DS 800-160 mg] Previous Rx's Medication Instructions Recorded Gabapentin [Neurontin] 100 mg PO TID cap 12/24/20 Allergies Allergy/AdvReac Type Severity Reaction Status Date / Time aspirin Allergy Rash/Hives Verified 08/14/21 13:02 bee pollen Allergy Anaphylaxis Verified 08/14/21 13:02 cefdinir [From Omnicef] Allergy Anaphylaxis Verified 08/14/21 13:02 clarithromycin [From Biaxin] Allergy Anaphylaxis Verified 08/14/21 13:02 ibuprofen [From Advil] Allergy Anaphylaxis Verified 08/14/21 13:02 Iodinated Contrast Media Allergy Anaphylaxis Verified 08/14/21 13:02 [Iodinated Contrast Media - IV Dye] iodine Allergy Anaphylaxis Verified 08/14/21 13:02 omalizumab [From Xolair] Allergy Anaphylaxis Verified 08/14/21 13:02 Penicillins Allergy Dyspnea Verified 08/14/21 13:02 prochlorperazine edisylate Allergy Rash/Hives Verified 08/14/21 13:02 [From Compazine] prochlorperazine maleate Allergy Rash/Hives Verified 08/14/21 13:02 [From Compazine] shellfish derived Allergy Anaphylaxis Verified 08/14/21 13:02 Review of Systems ROS Statement: Those systems with pertinent positive or pertinent negative responses have been documented in the HPI. ROS Other: All systems not noted in ROS Statement are negative. Past Medical History Past Medical History: Asthma, Cancer, COPD, GERD/Reflux, Hyperlipidemia, Pneumonia, Respiratory Disorder, Sleep Apnea/CPAP/BIPAP, Thyroid Disorder Additional Past Medical History / Comment(s): Hematoma chest wall from 06/28/20 fall with R sided rib fractures then later found she had also fractured her R hip, Bilateral hemidiaghramatic paralysis/elevation/weakness, chronic hypoxic respiratory failure with home oxygen at 5L/NC ATC, JAREN but does not tolerate device, tracheobronchitis, agammaglobinemia-now takes oral med for this, adrenal insufficiency, endocarditis, anemia, hiatal hernia, "borderline diabetes", chronic low back pain, DDD, osteoporosis, fractured vertabra x2, chronic pain syndrome, RLS, essential tremors, basal cell skin cancer with removals, hypothyroid, urine incontinence, odteopenia. History of Any Multi-Drug Resistant Organisms: None Reported Past Surgical History: Adenoidectomy, Appendectomy, Back Surgery, Breast Surgery, Cholecystectomy, Hysterectomy, Joint Replacement, Tonsillectomy Additional Past Surgical History / Comment(s): R breast bx, bilateral breast reduction/precancer, skin cancer with removals, back fusion with hardware, T12 kyphoplasty, L knee arthroscopy/ACL repair, total L knee arthroplasty, epidural back injections, colonoscopy, hemorrhoidectomy. Status post right chest I&D of hematoma. Past Anesthesia/Blood Transfusion Reactions: No Reported Reaction, Family History of Problems w/ Anesthesia, Motion Sickness Additional Past Anesthesia/Blood Transfusion Reaction / Comment(s): "brother was awake during whole surgery" Past Psychological History: No Psychological Hx Reported Smoking Status: Second hand smoke exposure Past Alcohol Use History: None Reported Past Drug Use History: None Reported - Past Family History Mother Family Medical History: Cancer Additional Family Medical History / Comment(s): Metastatic breast cancer. Father Family Medical History: Cancer Additional Family Medical History / Comment(s): Lung cancer General Exam Limitations: no limitations General appearance: alert, in no apparent distress Head exam: Present: atraumatic, normocephalic Eye exam: Present: normal appearance, PERRL ENT exam: Present: normal exam Neck exam: Present: normal inspection. Absent: tenderness, meningismus Respiratory exam: Present: normal lung sounds bilaterally. Absent: respiratory distress, wheezes Cardiovascular Exam: Present: regular rate, normal rhythm GI/Abdominal exam: Present: soft. Absent: distended, tenderness, guarding, rebound Extremities exam: Present: other (Abrasion right distal knee) Neurological exam: Present: alert, oriented X3, CN II-XII intact, motor sensory deficit (Drift in the right leg, NIH of 1) Psychiatric exam: Present: normal affect, normal mood Skin exam: Present: warm, dry, intact. Absent: cyanosis, diaphoretic Course Vital Signs 08/14/21 10:41 Temperature 98 F Pulse Rate 85 Respiratory 18 Rate Blood Pressure 136/74 O2 Sat by Pulse 95 Oximetry EKG Findings - EKG Comments: EKG Findings:: EKG: Normal sinus rhythm with sinus arrhythmia, rate of 72, MD interval 174, QRS duration 90, QTC 448, no ST segment elevation. Medical Decision Making - Medical Decision Making 66-year-old female presenting with a one-week history of right leg weakness, gait instability and multiple falls. Patient has fallen twice second fall was directly onto her buttock's. She did develop low back pain with this fall. X- ray does confirm a compression fracture. She states that the weakness in her right leg have been present prior to these falls and was the cause of these falls. She states that the weakness began after her third coronavirus vaccine. She denies any symptoms in the left leg or the bilateral upper arms. No speech abnormalities. This is her only deficit is right leg. CT brain negative for acute intracranial abnormality. X-ray lumbar spine shows L4 compression fracture. Patient does have significant white blood cell count 23,000. White blood cell count is been trending up. Uncertain of the cause of this currently. Patient has no other infectious symptoms. Patient's is unable to ambulate and given the weakness she will be admitted to Dr. Sullivan with neurology on consultation. - Lab Data Result diagrams: 08/14/21 11:13 08/14/21 11:13 Lab Results 08/14/21 08/14/21 08/14/21 Range/Units 11:13 11:13 11:13 WBC 23.2 H (3.8-10.6) k/uL RBC 4.63 (3.80-5.40) m/uL Hgb 14.4 (11.4-16.0) gm/dL Hct 45.3 (34.0-46.0) % MCV 97.8 (80.0-100.0) fL MCH 31.2 (25.0-35.0) pg MCHC 31.9 (31.0-37.0) g/dL RDW 14.8 (11.5-15.5) % Plt Count 254 (150-450) k/uL MPV 8.1 Neutrophils % 67 % Lymphocytes % 14 % Monocytes % 11 % Eosinophils % 4 % Basophils % 1 % Neutrophils # 15.6 H (1.3-7.7) k/uL Lymphocytes # 3.1 (1.0-4.8) k/uL Monocytes # 2.4 H (0-1.0) k/uL Eosinophils # 0.9 H (0-0.7) k/uL Basophils # 0.2 (0-0.2) k/uL PT 10.4 (9.0-12.0) sec INR 1.0 (<1.2) APTT 24.0 (22.0-30.0) sec Sodium 137 (137-145) mmol/L Potassium 4.1 (3.5-5.1) mmol/L Chloride 98 (98-107) mmol/L Carbon Dioxide 34 H (22-30) mmol/L Anion Gap 5 mmol/L BUN 11 (7-17) mg/dL Creatinine 0.89 (0.52-1.04) mg/dL Est GFR (CKD-EPI)AfAm 78 (>60 ml/min/1.73 sqM) Est GFR (CKD-EPI)NonAf 68 (>60 ml/min/1.73 sqM) Glucose 106 H (74-99) mg/dL Calcium 8.5 (8.4-10.2) mg/dL Total Bilirubin 0.5 (0.2-1.3) mg/dL AST 50 H (14-36) U/L ALT 39 H (4-34) U/L Alkaline Phosphatase 89 (38-126) U/L Total Protein 7.2 (6.3-8.2) g/dL Albumin 4.0 (3.5-5.0) g/dL Disposition Clinical Impression: At high risk for falls, Compression fracture of L4 vertebra, Right leg weakness Disposition: ADMITTED IP TO THIS [facility] Condition: Stable Is patient prescribed a controlled substance at d/c from ED?: No Referrals: Maikel Johnson MD [Primary Care Provider] - 1-2 days Decision to Admit Reason: Admit from EC Decision Date: 08/14/21 Decision Time: 14:29
[2021-08-14 11:28] LABS: Basophils # (A) 0.2 k/uL (0-0.2); Basophils % (A) 1 %; Eosinophils # (A) 0.9 k/uL (0-0.7); Eosinophils % (A) 4 %; HCT 45.3 % (34.0-46.0); HGB 14.4 gm/dL (11.4-16.0); Lymphocytes # (A) 3.1 k/uL (1.0-4.8); Lymphocytes % (A) 14 %; MCH 31.2 pg (25.0-35.0); MCHC 31.9 g/dL (31.0-37.0); MCV 97.8 fL (80.0-100.0); Mean Platelet Volume 8.1; Monocytes # (A) 2.4 k/uL (0-1.0); Monocytes % (A) 11 %; Neutrophils # (A) 15.6 k/uL (1.3-7.7); Neutrophils % (A) 67 %; Platelet Count 254 k/uL (150-450); RBC 4.63 m/uL (3.80-5.40); RDW 14.8 % (11.5-15.5); WBC 23.2 k/uL (3.8-10.6)
[2021-08-14 11:44] LABS: Calcium 8.5 mg/dL (8.4-10.2); Potassium 4.1 mmol/L (3.5-5.1); Total Bilirubin 0.5 mg/dL (0.2-1.3); Total Protein 7.2 g/dL (6.3-8.2)
[2021-08-14 12:05] LABS: Prothrombin Time 10.4 sec (9.0-12.0)
--- NOTE | 2021-08-14 12:15 | CT ---
EXAMINATION TYPE: CT brain wo con DATE OF EXAM: 08/14/2021 COMPARISON: 12/14/2019 HISTORY: Leg weakness CT DLP: 1098.4 mGycm Automated exposure control for dose reduction was used. FINDINGS: Ventricular size and cisternal spaces age. There is no midline shift or mass effect. No acute hemorrh age. Orbits are symmetric. Mild chronic mastoiditis. Minimal changes of chronic sinusitis. Craniocervical junction demonstrates low-lying cerebellar tonsils at the level is limited. IMPRESSION: NO ACUTE HEMORRHAGE OR MASS EFFECT. IF CONCERN FOR ACUTE ISCHEMIA IS CORRELATE WITH MRI CLINICALLY WARRANTED. THESE IS
--- NOTE | 2021-08-14 12:20 | XR ---
Lumbosacral spine HISTORY: Trauma and pain 5 views of lumbosacral spine correlated prior exam 08/04/2020 Post procedural changes show stable appearance, patient shows vertebroplasty at T12, fusion change at the lower lumbar spine. Bone mineralization is reduced. Surgical clip is present in the right upper quadrant. No evident spondylolysis, anterolisthesis grade 1 L4-5. Loss of disc height L5-S1. There is loss of vertebral body height at L4 which is developed in the interval, retropulsed superior endplat e is suspected. Sclerosis is present in the posterior elements. IMPRESSION: Osteoporotic compression fracture L4
--- NOTE | 2021-08-14 12:22 | XR ---
AP pelvis HISTORY: Trauma and pain Single frontal view the pelvis correlated to pelvis and right hip dated 12/26/2020 The posttraumatic changes to the pubic rami are again noted. Postop change noted to the lower lumbar spine. Bone mineralization is reduced which could limit sensitivity. Multiple phleboliths are present within the pelvis. No acute fracture or dislocation is evident. Hips are intact. Probable injection granuloma present over the right gluteal region. IMPRESSION: Remote traumatic changes are again noted. No acute abnormalities suspected. Additional fi ndings above.
[2021-08-14] MEDS ORDERED: NALOXONE 0.4 MG/ML 1 ML VIAL IV PRN (14:25)
[2021-08-14] MEDS: traMADol 50 MG TAB PO PRN ×2 (14:35→21:51)
[2021-08-14] MEDS ORDERED: ALBUTEROL NEBULIZED 2.5 MG/3 ML INHALATION PRN (15:05)
[2021-08-14] MEDS ORDERED: NON FORMULARY DRUG (Alendronate Sodium [Fosamax] 70 MG Tablet) PO SCH (15:15)
[2021-08-14] MEDS ORDERED: SODIUM CHLORIDE 0.9% 500 ML 500 ML IV ONE (15:53)
--- NOTE | 2021-08-14 16:01 | P.HPIM ---
History of Present Illness H&P Date: 08/14/21 History of Presenting Illness: Patient is a very pleasant 66-year-old female with a past medical history significant for polysubstance abuse, COPD home oxygen dependent 4 L, obstructive sleep apnea CPAP dependent nightly, GERD, hypothyroidism, previous fracture of right hip and previous thoracic and lumbar fusion. She presented to the emergency department with a chief complaint of right lower extremity weakness, gait instability, and recurrent falls. Patient states this began approximately one week ago shortly after receiving her booster Moderna Vaccination. Patient reports this is the same vaccination she received previously and never had any reactions or problems with the exception of mild redness at site. Patient reports she has overall felt weak and has been noticing pain in her right hip and weakness in her right leg. Patient reports she has experienced multiple falls secondary to this. Patient reports most recent fall resulting from right lower extremity weakness resulting in her sliding off of the couch onto her buttocks. Patient does have history of polysubstance abuse but currently denies use/misuse of any medications and denies misuse of her Buprenorphine. Patient denies having any other complaints at this time including headache, lightheadedness, dizziness, chest pain, palpitations, shortness of breath, increased dyspnea with exertion, changes in her chronic cough, abdominal pain, nausea, any changes in her difficulties with her urinary or bowel function, or experiencing any numbness/tingling/swelling in her extremities. She was seen and fully evaluated in the emergency department. She was found to have signi ficant leukocytosis with WBC count of 23.2 and elevated carbon dioxide of 34. Patient did have slightly elevated liver enzymes consistent with her chronic elevation. An EKG was completed revealing normal sinus rhythm at 72 bpm with no noted T-wave or ST abnormalities showing no signs of acute ischemia. X-ray of pelvis showing posttraumatic changes to the pubic rami and lumbar spine with reduced bone mineralization, multiple phleboliths are present within the pelvis, no acute fracture or dislocation reported. X-ray lumbar spine revealing an osteoporotic compression fracture of L4 with retropulsed superior endplate suspected. Patient was admitted under our services with consultation to neur ology and orthospine surgery. Review of systems: Pertinent positives and negatives as discussed in HPI, a complete review of systems was performed and all other systems are negative. Physical exam: Vital signs reviewed and stable. General: Nontoxic, no distress and appears stated age. Derm: Skin warm and dry, normal coloration for ethnicity. Patient has firm round indurated area of erythema to right deltoid region of her right arm. Head: Atraumatic, normocephalic and symmetric. Eyes: EOMs intact, no lid lag, and anicteric sclera. Pupils 4 mm to 3 mm equal and reactive. Mouth: no lip lesions, mucus membranes dry. Cardiovascular: regular rate and rhythm with normal S1S2, systolic murmur, positive posterior tibial pulses bilaterally, and cap refill < 2 seconds. Lungs: Respirations even, regular, and unlabored on 4L O2 via NC. Lungs CTA bilaterally, no rhonchi, no rales, no wheezing, and no accessory muscle usage. Abdominal: soft, nontender to palpation, no guarding, no appreciable organomegaly Ext: No gross muscle atrophy, no edema, no contractures. Right lower extremity weakness, patient reports pain with movement of her right leg in her right hip. Neuro: Speech is clear, patient somewhat slow to respond. Face symmetrical and CN II-XII grossly intact with no noted focal neuro deficits Psych: Alert and oriented to person, place, time, and situation. Appropriate and pleasant affect. Assessment and Plan of Care: L4 compression fracture Right lower extremity weakness, gait instability, and recurrent falls -X-ray of pelvis showing posttraumatic changes to the pubic rami and lumbar spine with reduced bone mineralization, multiple phleboliths are present within the pelvis, no acute fracture or dislocation reported. -X-ray lumbar spine revealing an osteoporotic compression fracture of L4 with retropulsed superior endplate suspected. -Consult orthospine surgery -Neuro checks -Fall precautions -Urine drug screen -PT/OT evaluation Leukocytosis of unclear origin -Requires additional workup as this may be reactive or secondary to dehydration as patient appears very dry vs daily steroid use vs other indeterminate cause. -CPK -TSH -Pro-calcitonin -Chest x-ray -Urinalysis with UDS -Gentle hydration with IV fluids and repeat a.m. labs. COPD home oxygen dependent on 4 L Obstructive sleep apnea CPAP dependent -Continuation of supplemental oxygen to be administered and titrated as needed to maintain SPO2 equal to or greater than 92% -Pulse-oximetry -Duonebs as needed for SOB and/or wheezing -Incentive Spirometry -Steroids: Patient chronically on prednisone 5 mg daily. -Continuation of daily medication regimen including Singulair and Symbicort. Polysubstance abuse -Avoid narcotics and benzodiazepines as patient has long-standing history of polysubstance abuse. Hypothyroidism -Continuation of daily medication regimen with Synthroid 200 g daily. -Obtain TSH The patient is admitted with an anticipated greater than 2 midnight stay for evaluation of L4 compression fracture and right lower extremity weakness. CODE STATUS: Full code DVT prophylaxis: Lovenox Discussed with: Patient Anticipated discharge date:Clinical course to determine Anticipated discharge place: Home A total of 45 minutes was spent on the care of this complex patient more than 50% of the time was spent in counseling and care coordination. Past Medical History Past Medical History: Asthma, Cancer, COPD, GERD/Reflux, Hyperlipidemia, Pneumonia, Respiratory Disorder, Sleep Apnea/CPAP/BIPAP, Thyroid Disorder Additional Past Medical History / Comment(s): Hematoma chest wall from 06/28/20 fall with R sided rib fractures then later found she had also fractured her R hip, Bilateral hemidiaghramatic paralysis/elevation/weakness, chronic hypoxic respiratory failure with home oxygen at 5L/NC ATC, JAREN but does not tolerate device, tracheobronchitis, agammaglobinemia-now takes oral med for this, adrenal insufficiency, endocarditis, anemia, hiatal hernia, "borderline diabetes", chronic low back pain, DDD, osteoporosis, fractured vertabra x2, chronic pain syndrome, RLS, essential tremors, basal cell skin cancer with removals, hy pothyroid, urine incontinence, odteopenia. History of Any Multi-Drug Resistant Organisms: None Reported Past Surgical History: Adenoidectomy, Appendectomy, Back Surgery, Breast Surgery, Cholecystectomy, Hysterectomy, Joint Replacement, Tonsillectomy Additional Past Surgical History / Comment(s): R breast bx, bilateral breast reduction/precancer, skin cancer with removals, back fusion with hardware, T12 kyphoplasty, L knee arthroscopy/ACL repair, total L knee arthroplasty, epidural back injections, colonoscopy, hemorrhoidectomy. Status post right chest I&D of hematoma. Past Anesthesia/Blood Transfusion Reactions: No Reported Reaction, Family History of Problems w/ Anesthesia, Motion Sickness Additional Past Anesthesia/Blood Transfusion Reaction / Comment(s): "brother was awake during whole surgery" Past Psychological History: No Psychological Hx Reported Smoking Status: Second hand smoke exposure Past Alcohol Use History: None Reported Past Drug Use History: None Reported - Past Family History Mother Family Medical History: Cancer Additional Family Medical History / Comment(s): Metastatic breast cancer. Father Family Medical History: Cancer Additional Family Medical History / Comment(s): Lung cancer Medications and Allergies Home Medications Medication Instructions Recorded Confirmed Type Albuterol Nebulized [Ventolin 2.5 mg INHALATION RT-QID PRN 06/28/20 08/14/21 History Nebulized] Alendronate Sodium [Fosamax] 70 mg PO Q7D 06/28/20 08/14/21 History Budesonide/Formoterol Fumarate 2 puff INHALATION RT-BID 06/28/20 08/14/21 History [Symbicort 160-4.5 Mcg Inhaler] Levothyroxine Sodium [Tirosint-Carly] 200 mcg SL AC-BRKFST 06/28/20 08/14/21 History Mirtazapine [Remeron] 15 mg PO HS 06/28/20 08/14/21 History Montelukast [Singulair] 10 mg PO HS 06/28/20 08/14/21 History Rosuvastatin [Crestor] 10 mg PO HS 06/28/20 08/14/21 History Topiramate [Topamax] 100 mg PO BID 06/28/20 08/14/21 History predniSONE 5 mg PO DAILY@1200 06/28/20 08/14/21 History rOPINIRole HCL [Requip] 2 mg PO HS 06/28/20 08/14/21 History Primidone [Mysoline] 25 mg PO TID 09/05/20 08/14/21 History Ipratropium Nebulized [Atrovent 0.5 mg INHALATION RT-QID PRN 12/21/20 08/14/21 History Nebulized 0.2 MG/ML] Gabapentin [Neurontin] 100 mg PO TID cap 12/24/20 08/14/21 Rx Baclofen 10 mg PO BID PRN 08/14/21 08/14/21 History Buprenorphine HCl [Belbuca] 300 mcg BUCCAL BID 08/14/21 08/14/21 History DULoxetine HCL [Cymbalta] 30 mg PO HS 08/14/21 08/14/21 History Diclofenac Sodium [Voltaren] 75 mg PO BID 08/14/21 08/14/21 History EPINEPHrine (Auto Inject) [Epipen] 0.3 mg IM ONCE PRN 08/14/21 08/14/21 History Ferrous Sulfate [Feosol] 325 mg PO DAILY 08/14/21 08/14/21 History Fluticasone/Umeclidin/Vilanter 1 puff INHALATION RT-DAILY 08/14/21 08/14/21 History [Trelegy Ellipta 200-62.5-25] Hizentra Infusion 20 gm SQ Q14D 08/14/21 08/14/21 History Sulfamethox-Tmp 800-160Mg [Bactrim 1 tab PO MOWEFR 08/14/21 08/14/21 History DS 800-160 mg] Allergies Allergy/AdvReac Type Severity Reaction Status Date / Time aspirin Allergy Rash/Hives Verified 08/14/21 13:02 bee pollen Allergy Anaphylaxis Verified 08/14/21 13:02 cefdinir [From Omnicef] Allergy Anaphylaxis Verified 08/14/21 13:02 clarithromycin [From Biaxin] Allergy Anaphylaxis Verified 08/14/21 13:02 ibuprofen [From Advil] Allergy Anaphylaxis Verified 08/14/21 13:02 Iodinated Contrast Media Allergy Anaphylaxis Verified 08/14/21 13:02 [Iodinated Contrast Media - IV Dye] iodine Allergy Anaphylaxis Verified 08/14/21 13:02 omalizumab [From Xolair] Allergy Anaphylaxis Verified 08/14/21 13:02 Penicillins Allergy Dyspnea Verified 08/14/21 13:02 prochlorperazine edisylate Allergy Rash/Hives Verified 08/14/21 13:02 [From Compazine] prochlorperazine maleate Allergy Rash/Hives Verified 08/14/21 13:02 [From Compazine] shellfish derived Allergy Anaphylaxis Verified 08/14/21 13:02 Physical Exam Vitals: Vital Signs Temp Pulse Resp BP Pulse Ox 08/14/21 10:41 98 F 85 18 136/74 95 Intake and Output 08/14/21 08/14/21 08/14/21 06:59 14:59 22:59 Other: Weight 68.039 kg Results CBC & Chem 7: 08/14/21 11:13 08/14/21 11:13 Labs: Abnormal Lab Results - Last 24 Hours (Table) 08/14/21 08/14/21 Range/Units 11:13 11:13 WBC 23.2 H (3.8-10.6) k/uL Neutrophils # 15.6 H (1.3-7.7) k/uL Monocytes # 2.4 H (0-1.0) k/uL Eosinophils # 0.9 H (0-0.7) k/uL Carbon Dioxide 34 H (22-30) mmol/L Glucose 106 H (74-99) mg/dL AST 50 H (14-36) U/L ALT 39 H (4-34) U/L
--- NOTE | 2021-08-14 16:45 | P.CNNES ---
History of Present Illness Consult date: 08/14/21 Requesting physician: Sumeet Joy Reason for Consult: right leg weakness, unable to ambulate History of Present Illness: This is a 66-year-old woman with medical history of chronic back pain s/p fusion (T12 Kyphoplasty), right hip fracture, COPD on home oxygen, osteoporosis, essential tremor, hypothyroidism who presented emergency department on 08/14/2021 for new right lower back pain associated with right leg weakness. Patient stated she is having significant right lower posterior lower back pain and it is localized. Pain is >10/10. She denies any radiation of pain. She feel it is difficult to move he right leg because of pain. She denies any numbness or tingling of right leg. She denies any bladder or bowel incontinence or urgency. She does have chronic back pain. She is requesting pain medication. She said she had surgery to her back about 10 years ago or more and was seen by Dr. Streeter. Patient denies of visual disturbance, difficulty getting her words out, difficulty swallowing or any other new neurological problems. Some of the patient will medication consist of baclofen, gram one tablet twice a day when necessary, Belbuca, Diclofenac 75mg a tab bid, gabapentin 100 mg 1 tablet 3 times a day, Duloxetine 30mg qhs, Remeron, primidone, Crestor 10 mg, Topamax 100 mg a tablet 3 times a day, prednisone 5 mg daily, ropinirole 2 mg daily at bedtime, ferrous sulfate, alendronate I spoke with the patient's nurse and she stated she is known to the ED and has chronic lower back pain and had overdose of pain in past. Some of the work-up in the hospital consisted of: Initial vital signs his blood pressure 136/74, heart rate of 85, respiratory of 18, temperature of 98.0 Fahrenheit oral, pulse ox of 95% on 4 L of nasal cannula. Initial white blood cell is 23.2 thousand and predominant neutrophilic. AST of 50, ALT of 39 otherwise the rest of the chemistry panel is unremarkable. PT, INR and PTT is unremarkable. CT of the head is reported as no acute hemorrhage or mass effect. I personally reviewed the CT of the head there is no acute or subacute ischemia and there is no at the proximal hemorrhage. Lumbosacral spine x-rays reported as osteoporotic compression fracture over the L4 Pelvic x-ray on the right is reported as remote traumatic changes are again noted. No acute abnormalities suspected. Patient has postop changes noted in the lower lumbar spine. Review of Systems Review of system: The 12 point system was reviewed and apparent positive and negative per HPI. Past Medical History Past Medical History: Asthma, Cancer, COPD, GERD/Reflux, Hyperlipidemia, Pneumonia, Respiratory Disorder, Sleep Apnea/CPAP/BIPAP, Thyroid Disorder Additional Past Medical History / Comment(s): Hematoma chest wall from 06/28/20 fall with R sided rib fractures then later found she had also fractured her R hip, Bilateral hemidiaghramatic paralysis/elevation/weakness, chronic hypoxic respiratory failure with home oxygen at 5L/NC ATC, JAREN but does not tolerate device, tracheobronchitis, agammaglobinemia-now takes oral med for this, adrenal insufficiency, endocarditis, anemia, hiatal hernia, "borderline diabetes", chronic low back pain, DDD, osteoporosis, fractured vertabra x2, chronic pain syndrome, RLS, essential tremors, basal cell skin cancer with removals, hypothy roid, urine incontinence, odteopenia. History of Any Multi-Drug Resistant Organisms: None Reported Past Surgical History: Adenoidectomy, Appendectomy, Back Surgery, Breast Surgery, Cholecystectomy, Hysterectomy, Joint Replacement, Tonsillectomy Additional Past Surgical History / Comment(s): R breast bx, bilateral breast red uction/precancer, skin cancer with removals, back fusion with hardware, T12 kyphoplasty, L knee arthroscopy/ACL repair, total L knee arthroplasty, epidural back injections, colonoscopy, hemorrhoidectomy. Status post right chest I&D of hematoma. Past Anesthesia/Blood Transfusion Reactions: No Reported Reaction, Family History of Problems w/ Anesthesia, Motion Sickness Additional Past Anesthesia/Blood Transfusion Reaction / Comment(s): "brother was awake during whole surgery" Past Psychological History: No Psychological Hx Reported Smoking Status: Second hand smoke exposure Past Alcohol Use History: None Reported Past Drug Use History: None Reported - Past Family History Mother Family Medical History: Cancer Additional Family Medical History / Comment(s): Metastatic breast cancer. Father Family Medical History: Cancer Additional Family Medical History / Comment(s): Lung cancer Medications and Allergies Home Medications Medication Instructions Recorded Confirmed Type Albuterol Nebulized [Ventolin 2.5 mg INHALATION RT-QID PRN 06/28/20 08/14/21 History Nebulized] Alendronate Sodium [Fosamax] 70 mg PO Q7D 06/28/20 08/14/21 History Budesonide/Formoterol Fumarate 2 puff INHALATION RT-BID 06/28/20 08/14/21 History [Symbicort 160-4.5 Mcg Inhaler] Levothyroxine Sodium [Tirosint-Carly] 200 mcg SL AC-BRKFST 06/28/20 08/14/21 History Mirtazapine [Remeron] 15 mg PO HS 06/28/20 08/14/21 History Montelukast [Singulair] 10 mg PO HS 06/28/20 08/14/21 History Rosuvastatin [Crestor] 10 mg PO HS 06/28/20 08/14/21 History Topiramate [Topamax] 100 mg PO BID 06/28/20 08/14/21 History predniSONE 5 mg PO DAILY@1200 06/28/20 08/14/21 History rOPINIRole HCL [Requip] 2 mg PO HS 06/28/20 08/14/21 History Primidone [Mysoline] 25 mg PO TID 09/05/20 08/14/21 History Ipratropium Nebulized [Atrovent 0.5 mg INHALATION RT-QID PRN 12/21/20 08/14/21 History Nebulized 0.2 MG/ML] Gabapentin [Neurontin] 100 mg PO TID cap 12/24/20 08/14/21 Rx Baclofen 10 mg PO BID PRN 08/14/21 08/14/21 History Buprenorphine HCl [Belbuca] 300 mcg BUCCAL BID 08/14/21 08/14/21 History DULoxetine HCL [Cymbalta] 30 mg PO HS 08/14/21 08/14/21 History Diclofenac Sodium [Voltaren] 75 mg PO BID 08/14/21 08/14/21 History EPINEPHrine (Auto Inject) [Epipen] 0.3 mg IM ONCE PRN 08/14/21 08/14/21 History Ferrous Sulfate [Feosol] 325 mg PO DAILY 08/14/21 08/14/21 History Fluticasone/Umeclidin/Vilanter 1 puff INHALATION RT-DAILY 08/14/21 08/14/21 History [Trelegy Ellipta 200-62.5-25] Hizentra Infusion 20 gm SQ Q14D 08/14/21 08/14/21 History Sulfamethox-Tmp 800-160Mg [Bactrim 1 tab PO MOWEFR 08/14/21 08/14/21 History DS 800-160 mg] Allergies Allergy/AdvReac Type Severity Reaction Status Date / Time aspirin Allergy Rash/Hives Verified 08/14/21 13:02 bee pollen Allergy Anaphylaxis Verified 08/14/21 13:02 cefdinir [From Omnicef] Allergy Anaphylaxis Verified 08/14/21 13:02 clarithromycin [From Biaxin] Allergy Anaphylaxis Verified 08/14/21 13:02 ibuprofen [From Advil] Allergy Anaphylaxis Verified 08/14/21 13:02 Iodinated Contrast Media Allergy Anaphylaxis Verified 08/14/21 13:02 [Iodinated Contrast Media - IV Dye] iodine Allergy Anaphylaxis Verified 08/14/21 13:02 omalizumab [From Xolair] Allergy Anaphylaxis Verified 08/14/21 13:02 Penicillins Allergy Dyspnea Verified 08/14/21 13:02 prochlorperazine edisylate Allergy Rash/Hives Verified 08/14/21 13:02 [From Compazine] prochlorperazine maleate Allergy Rash/Hives Verified 08/14/21 13:02 [From Compazine] shellfish derived Allergy Anaphylaxis Verified 08/14/21 13:02 Physical Examination - Vital Signs Vital Signs: Vital Signs Temp Pulse Resp BP Pulse Ox 08/14/21 10:41 98 F 85 18 136/74 95 Intake and Output 08/14/21 08/14/21 08/14/21 06:59 14:59 22:59 Other: Weight 68.039 kg GENERAL: The patient is lying in bed and is not in acute distress. CHEST: The heart rate is regular rate rhythm. No murmurs to auscultation. LUNG: Clear to auscultation bilaterally no wheezing noted throughout. Not labored breathing. ABDOMEN/GI: Bowel sounds present in all 4 quadrants. No tenderness to palpation throughout. NEUROLOGICAL: Higher mental function: The patient is awake, alert, oriented to self, place and time. Patient is following commands. No aphasia and no neglect. Cranial nerves: The pupils are round, equal and reactive to light and accommodation. Visual plascencia are full to confrontation throughout. Extraocular movement is intact no nystagmus is noted. Facial sensation is normal to touch throughout. The facial strength is normal throughout. Hearing is mildly decreased bilaterally to hand rub. Tongue is midline and moved [id number] without any difficulty. No dysarthria is noted. Shoulder shrug is normal bilaterally. Motor: Gait is deferred because of pain. The strength is limited on the right lower extremity because of pain but was able to lift above gravity and has good right ankle strength. Otherwise 5 over 5 throughout. Normal tone and bulk. Cerebellum: Normal finger to nose bilaterally. Sensation: Sensation is normal to touch throughout. Reflexes (right/left): 2+ throughout uppers while lowers are 1+ throughout except left knee (since has left prosthetic knee). Plantars are mute bilaterally. Results - Laboratory Findings CBC and BMP: 08/14/21 11:13 08/14/21 11:13 Abnormal Lab Findings: Abnormal Labs 08/14/21 08/14/21 11:13 11:13 WBC 23.2 H Neutrophils # 15.6 H Monocytes # 2.4 H Eosinophils # 0.9 H Carbon Dioxide 34 H Glucose 106 H AST 50 H ALT 39 H Assessment and Plan Assessment: L4 compression fracture Right lower posterior back pain causing limitation in movement of right lower e xtremity---(It was hard to assess strength but was able to lift above gravity) Right lumbar radiculopathy History of opoid overdose (according to nurse in past) Chronic back pain status post fusion over the T12 kyphoplasty History of right hip fracture COPD on home oxygen Osteoporosis History of esstentional tremor Hypothyroidism Plan: I ordered MRI of the lumbar spine STAT Orthopedic surgery team is consulted Consulted PT and OT are consulted Consider pain management consultation. We'll defer the rest of the medical management to the primary team The plan is discussed with the patient's nurse. Thank you for the consultation. Keon Steven M.D. Neuro-Hospitalist Time with Patient: Greater than 30
[2021-08-14] MEDS: ACETAMINOPHEN TAB 325 MG TAB PO PRN (16:51)
[2021-08-14] MEDS: PRIMIDONE 50 MG TAB PO SCH ×2 (16:51→21:52)
[2021-08-14] MEDS: GABAPENTIN 100 MG CAP PO SCH ×2 (16:51→21:51)
--- NOTE | 2021-08-14 16:54 | XR ---
EXAMINATION TYPE: XR chest 1V portable DATE OF EXAM: 08/14/2021 COMPARISON: 12/27/2020 HISTORY: Pneumonia. Leukocytosis. TECHNIQUE: Single view FINDINGS: There is poor inspiration with elevation of the diaphragms. There is atelectasis at the lopez g bases. No gross heart failure seen. There are old right-sided healed rib fractures. IMPRESSION: There is atelectasis at both lung bases and poor inspiration. No heart failure. No signif icant change.
--- NOTE | 2021-08-14 19:04 | MR ---
EXAMINATION TYPE: MR lumbar spine wo con DATE OF EXAM: 08/14/2021 COMPARISON: 01/22/2012 HISTORY: LBP, RLE weakness, compression fracture. Multiplanar multiecho imaging of the lumbar spine without contrast. There is some metal artifact appa rently from posterior surgery at the L5-S1 level. There is 50% compression deformity of L4 vertebral body with some mild fragment extension into the spinal canal. There is also hypertrophic facet arthro yolanda and resultant severe spinal stenosis. There is no lumbar paraspinal mass. There is narrowing of the L3-4 disc space. There is right side L3-4 neural foraminal narrowing. There is T12 compression f racture 25% unchanged. IMPRESSION: There is a compression fracture of L4 which is new compared to old exam and there is moderately sever e spinal stenosis related to posterior mild fragment extension as well as hypertrophic facet arthropa thy. The fracture appears essentially new compared to the lumbar spine x-ray of 08/04/2020. There is T12 old compression fracture unchanged.
[2021-08-14] MEDS: SYMBICORT 160-4.5 MCG INHALER INHALATION SCH (19:46)
[2021-08-14] MEDS: SYMBICORT 80-4.5 MCG INHALER INHALATION SCH (19:48)
[2021-08-14] MEDS ORDERED: BUPRENORPHINE 300 MCG SUBLINGUAL SCH (21:00)
[2021-08-14] MEDS: MONTELUKAST 10 MG TAB PO SCH (21:51)
[2021-08-14] MEDS: ATORVASTATIN 20 MG TAB PO SCH (21:51)
[2021-08-14] MEDS: DULoxetine HCL 30 MG CAPSULE.DR PO SCH (21:51)
[2021-08-14] MEDS: MELATONIN 3 MG TABLET PO PRN (21:51)
[2021-08-14] MEDS: MIRTAZAPINE 15 MG TAB PO SCH (21:53)
[2021-08-14] MEDS: TOPIRAMATE 100 MG TAB PO SCH (21:53)
[2021-08-15] MEDS: SODIUM CHLORIDE 0.9% 1,000 ML IV SCH ×4 (01:55→22:56)
[2021-08-15] MEDS: traMADol 50 MG TAB PO PRN (04:55)
[2021-08-15 06:43] LABS: HCT 44.2 % (34.0-46.0); HGB 13.9 gm/dL (11.4-16.0); Hypochromasia Slight; MCHC 31.5 g/dL (31.0-37.0); MCV 98.7 fL (80.0-100.0); Mean Platelet Volume 8.2; Platelet Count 217 k/uL (150-450); RBC 4.48 m/uL (3.80-5.40); RDW 14.5 % (11.5-15.5); WBC 17.7 k/uL (3.8-10.6)
[2021-08-15 07:11] LABS: Band Neutrophils % 13 %; Eosinophils # (M) 0.71 k/uL (0-0.7); Lymphocytes # (M) 1.42 k/uL (1.0-4.8); Monocytes # (M) 3.36 k/uL (0-1.0); Neutrophils % (M) 56 %; Nucleated Red Blood Cells 0 /100 WBC (0-0); Total Cells Counted 100
--- NOTE | 2021-08-15 08:23 | P.PN ---
Progress Note - Text Progress Note Date: 08/15/21 Imaging reviewed. Pt has a L4 burst fracture with near vertebra plana concerning for infection vs pathological process. Further imaging of the spine needed to complete neuraxial picture. They will need surgical decompression and stabilization. We will work on timing. Will try for tomorrow afternoon.
[2021-08-15] MEDS: GABAPENTIN 100 MG CAP PO SCH ×3 (08:54→22:28)
[2021-08-15] MEDS: FERROUS SULFATE 325 MG TAB PO SCH (08:54)
[2021-08-15] MEDS ORDERED: ENOXAPARIN 40 MG/0.4 ML SYRINGE SQ SCH (09:00)
[2021-08-15] MEDS: SYMBICORT 160-4.5 MCG INHALER INHALATION SCH ×2 (09:03→20:10)
[2021-08-15] MEDS: SYMBICORT 80-4.5 MCG INHALER INHALATION SCH (09:05)
[2021-08-15] MEDS: IPRATROPIUM 0.5 MG/2.5 ML NEBU INHALATION SCH ×4 (09:06→20:10)
[2021-08-15] MEDS ORDERED: DEXAMETHASONE SOD PHOSPHATE 4 MG/ML 1 ML VIAL IVP PRN (09:11)
[2021-08-15] MEDS: PRIMIDONE 50 MG TAB PO SCH ×3 (09:35→22:29)
[2021-08-15] MEDS: TOPIRAMATE 100 MG TAB PO SCH ×2 (09:35→22:29)
[2021-08-15] MEDS ORDERED: HYDROmorphone 1 MG/ML 1 ML SYRINGE IVP ONE (10:00)
[2021-08-15 10:27] LABS: African American GFR (CKD) 96.4 (60.0-200.0); Albumin 3.9 g/dL (3.8-4.9); Anion Gap 14.4 mmol/L (10.00-18.00); BUN/Creat Ratio 11.38 Ratio (12.00-20.00); Blood Urea Nitrogen 8.5 mg/dL (9.0-27.0); Calcium 8.1 mg/dL (8.7-10.3); Carbon Dioxide 25.6 mmol/L (20.0-27.5); Non-African American GFR(CKD) 83.2 (60.0-200.0); Potassium 3.4 mmol/L (3.5-5.5); Total Protein 6.3 g/dL (6.2-8.2)
[2021-08-15 10:28] LABS: Albumin/Globulin Ratio 1.68 (1.60-3.17); Globulin 2.3 g/dL (1.6-3.3); Magnesium 2.4 mg/dL (1.5-2.4); Total Bilirubin 0.2 mg/dL (0.30-1.20)
[2021-08-15] MEDS: LEVOTHYROXINE SODIUM SUBLINGUAL SCH (10:44)
--- NOTE | 2021-08-15 10:45 | P.PN ---
<Bowen Thacker - Last Filed: 08/15/21 14:09> Subjective Progress Note Date: 08/15/21 History of Presenting Illness: Patient is a very pleasant 66-year-old female with a past medical history significant for polysubstance abuse, COPD home oxygen dependent 4 L, obstructive sleep apnea CPAP dependent nightly, GERD, hypothyroidism, previous fracture of right hip and previous thoracic and lumbar fusion. She presented to the emergency department with a chief complaint of right lower extremity weakness, gait instability, and recurrent falls. Patient states this began approximately one week ago shortly after receiving her booster Moderna Vaccination. Patient reports this is the same vaccination she received previously and never had any reactions or problems with the exception of mild redness at site. Patient reports she has overall felt weak and has been noticing pain in her right hip and weakness in her right leg. Patient reports she has experienced multiple falls secondary to this. Patient reports most recent fall resulting from right lower extremity weakness resulting in her sliding off of the couch onto her buttocks. Patient does have history of polysubstance abuse but currently denies use/misuse of any medications and denies misuse of her Buprenorphine. She was seen and fully evaluated in the emergency department. A CT of her brain was completed revealing no acute hemorrhage or mass effect, negative for acute intercranial abnormality. She was found to have significant leukocytosis with WBC count of 23.2 and elevated carbon dioxide of 34. Patient did have slightly elevated liver enzymes consistent with her chronic elevation. An EKG was completed revealing normal sinus rhythm at 72 bpm with no noted T-wave or ST abnormalities showing no signs of acute ischemia. X-ray of pelvis showing posttraumatic changes to the pubic rami and lumbar spine with reduced bone mineralization, multiple phleboliths are present within the pelvis, no acute fracture or dislocation reported. X-ray lumbar spine revealing an osteoporotic compression fracture of L4 with retropulsed superior endplate suspected. Patient was admitted under our services with consultation to neurology and orthospine surgery. MRI lumbar spine revealing compression fracture of L4 with moderately severe spinal stenosis related to posterior mild fragment extension as well as hypertrophic facet arthropathy as well as old T12 compression fracture unchanged. Physical exam: Patient seen and fully evaluated at the bedside this morning. Patient reports continued pain in right thigh radiating up into right hip and lower lumbar spine. Patient continues to have weakness of right leg with reports of continued pain in right thigh radiating up into right hip and lower lumbar spine with any attempts of movement. Sensation of right lower extremity does remain intact. Patient continues to deny having any numbness or tingling in extremities, involuntary loss of bowel or bladder, or saddlebag anesthesias. Orthospine planing for surgical intervention tentatively planned for tomorrow. Patient to undergo CT of thoracic and lumbar spine. Pulmonology consulted for presurgical evaluation as patient at high risk secondary to advanced COPD and history of chronic diaphragmatic paralysis. Vital signs reviewed and stable. General: Nontoxic, no distress and appears stated age. Derm: Skin warm and dry, normal coloration for ethnicity. Patient has firm round indurated area of erythema to right deltoid region of her right arm. Head: Atraumatic, normocephalic and symmetric. Eyes: EOMs intact, no lid lag, and anicteric sclera. Pupils 4 mm to 3 mm equal and reactive. Mouth: no lip lesions, mucus membranes dry. Cardiovascular: regular rate and rhythm with normal S1S2, systolic murmur, positive posterior tibial pulses bilaterally, and cap refill < 2 seconds. Lungs: Respirations even, regular, and unlabored on 4L O2 via NC. Lungs CTA bilaterally, no rhonchi, no rales, no wheezing, and no accessory muscle usage. Abdominal: soft, nontender to palpation, no guarding, no appreciable organomegaly Ext: No gross muscle atrophy, no edema, no contractures. Right lower extremity weakness, patient reports pain with movement of her right leg radiating from right thigh into right hip and lower lumbar spine. Neuro: Speech is clear, patient somewhat slow to respond. Face symmetrical and CN II-XII grossly intact with no noted focal neuro deficits Psych: Alert and oriented to person, place, time, and situation. Appropriate and pleasant affect. Assessment and Plan of Care: L4 compression/burst fracture Right lower extremity weakness, gait instability, and recurrent falls -X-ray of pelvis showing posttraumatic changes to the pubic rami and lumbar spine with reduced bone mineralization, multiple phleboliths are present within the pelvis, no acute fracture or dislocation reported. -X-ray lumbar spine revealing an osteoporotic compression fracture of L4 with retropulsed superior endplate suspected. -MRI lumbar spine revealing compression fracture of L4 with moderately severe spinal stenosis related to posterior mild fragment extension as well as hypertrophic facet arthropathy as well as old T12 compression fracture unchanged. -Orthospine surgery following, recommending need for surgical decompression and stabilization of L4 burst fracture -Continue Neuro checks -Bedrest until cleared by orthospine surgery -Fall precautions -Hold Bupre -PT/OT to begin once cleared by orthospine surgery Presurgical clearance -NSQIP surgical risk places patient at an above average risk of 7.6% for serious complication with average risk of 4.7%. Above average risk at 0.4% for cardiac complication with average risk of 0.3%, and an above average risk of 2.5% for with average risk of 0.5%. -Patient is at high risk for serious complications up to and including with surgical intervention, however due to nature of condition, benefits and risks were discussed with the patient and her family and they have chosen to proceed with surgery at this time. -No further medical workup is recommended prior to undergoing surgery at this time. Leukocytosis of unclear origin, improving History of common variable immunodeficiency -Requires additional workup as this may be reactive or secondary to history of common variable immunodeficiency vs dehydration (slight improvement with IV fluid hydration) vs daily steroid use vs other indeterminate cause. -CK-MB elevated at 4.5 -Pro-calcitonin pending -Chest x-ray revealing atelectasis at both lung bases and poor inspiration and no evidence of heart failure or acute cardiopulmonary process. -Urinalysis negative for infection -Continue Gentle hydration with IV fluids and repeat a.m. labs. -Continue Bactrim 800/160 mg daily for treatment of common variable immunodeficiency -Consult infectious disease -IV antibiotic with vancomycin pending surgical biopsy/culture results and further recommendations from ID as patient is at high risk for infection. Hypokalemia, replaced -We will continue to monitor with repeat a.m. labs and replace abnormal electrolyte values as needed. COPD home oxygen dependent on 4 L Obstructive sleep apnea CPAP dependent Chronic diaphragmatic paralysis -Chest x-ray revealing atelectasis at both lung bases and poor inspiration and no evidence of heart failure or acute cardiopulmonary process. -Continuation of supplemental oxygen to be administered and titrated as needed to maintain SPO2 equal to or greater than 92%, remains on baseline oxygen 4 L -Pulse-oximetry -Duonebs as needed for SOB and/or wheezing -Incentive Spirometry, encourage use 10-15 times hourly while awake -Steroids: Patient chronically on prednisone 5 mg daily we will continue at this time., -Continuation of daily medication regimen including Singulair and Symbicort. -Pulmonology consulted for presurgical evaluation Polysubstance abuse -Caution with narcotics and benzodiazepines as much as possible, as patient has long-standing history of polysubstance abuse. -We will use narcotics to treat acute pain due to patient's reports of severe pain she is experiencing resulting from acute fracture of L4, but plan to wean as soon as possible. Hypothyroidism -Thyroid function revealing severe underactivity with TSH of 91.300 and free T4 of less than 0.100. -Unclear if patient is taking levothyroxine as prescribed, continue level thyroxine 200 g daily. -Patient will require outpatient follow-up with endocrinology upon discharge CODE STATUS: Full code DVT prophylaxis: Lovenox Discussed with: Patient and RN Anticipated discharge date:Clinical course to determine Anticipated discharge place: Home A total of 45 minutes was spent on the care of this complex patient more than 50% of the time was spent in counseling and care coordination. Objective - Vital Signs Vital signs: Vital Signs Temp 97.8 F 08/15/21 05:15 Pulse 63 08/15/21 05:15 Resp 20 08/15/21 05:15 BP 121/70 08/15/21 05:15 Pulse Ox 99 08/15/21 05:15 Intake & Output 08/14/21 08/15/21 08/15/21 18:59 06:59 18:59 Intake Total 200 100 Balance 200 100 Weight 68.039 kg Intake: Intake, IV Titration 200 Amount Sodium Chloride 0.9% 1, 200 000 ml @ 100 mls/hr IV . Q10H [facility] Rx#:[id number] Oral 100 Other: Voiding Method Diaper # Voids 0 0 - Labs CBC & Chem 7: 08/15/21 05:37 08/15/21 05:37 Labs: Abnormal Lab Results - Last 24 Hours (Table) 08/14/21 08/14/21 08/14/21 Range/Units 11:13 11:13 11:13 WBC 23.2 H (3.8-10.6) k/uL Neutrophils # 15.6 H (1.3-7.7) k/uL Neutrophils # (Manual) (1.3-7.7) k/uL Monocytes # 2.4 H (0-1.0) k/uL Monocytes # (Manual) (0-1.0) k/uL Eosinophils # 0.9 H (0-0.7) k/uL Eosinophils # (Manual) (0-0.7) k/uL Potassium (3.5-5.5) mmol/L Carbon Dioxide 34 H (22-30) mmol/L BUN (9.0-27.0) mg/dL BUN/Creatinine Ratio (12.00-20.00) Ratio Glucose 106 H (74-99) mg/dL Calcium (8.7-10.3) mg/dL Total Bilirubin (0.30-1.20) mg/dL AST 50 H (14-36) U/L ALT 39 H (4-34) U/L CK-MB (CK-2) (0.0-2.4) ng/mL TSH 91.300 H (0.350-5.500) uIU/mL Free (T4) Reflex I <0.100 L (0.800-1.800) ng/dL 08/14/21 08/15/21 08/15/21 Range/Units 13:55 05:37 05:37 WBC 17.7 H (3.8-10.6) k/uL Neutrophils # (1.3-7.7) k/uL Neutrophils # (Manual) 12.20 H (1.3-7.7) k/uL Monocytes # (0-1.0) k/uL Monocytes # (Manual) 3.36 H (0-1.0) k/uL Eosinophils # (0-0.7) k/uL Eosinophils # (Manual) 0.71 H (0-0.7) k/uL Potassium 3.4 L (3.5-5.5) mmol/L Carbon Dioxide (22-30) mmol/L BUN 8.5 L (9.0-27.0) mg/dL BUN/Creatinine Ratio 11.38 L (12.00-20.00) Ratio Glucose (74-99) mg/dL Calcium 8.1 L (8.7-10.3) mg/dL Total Bilirubin 0.20 L (0.30-1.20) mg/dL AST 56 H (14-36) U/L ALT 47 H (4-34) U/L CK-MB (CK-2) 4.5 H (0.0-2.4) ng/mL TSH (0.350-5.500) uIU/mL Free (T4) Reflex I (0.800-1.800) ng/dL <Gricelda Sullivan - Last Filed: 08/15/21 16:33> Subjective Patient seen and examined independently. Patient was also seen by Bowen Thacker NP and case was discussed. I am in agreement with subjective, physical exam, assessment and plan as written above and amended below. She reports that she is still having significant pain over the Dilaudid is helping. She takes buprenorphine at home for chronic pain issues. She reports that she has a history of common variable immunodeficiency diagnosed approximately 5 years ago. She has been taking her injectable IVIG subcutaneously at home. Her last dose was 1 week ago. She has been taking all of her Bactrim up until yesterday. She reports that she has had no recent known infections. She has been vaccinated against COVID-19. She reports that she has been taking all of her Synthroid medication and has not missed a dose. She does not seem bulb sorter follows with her primary. Her TSH is chronically elevated and typically above 90. Despite max dosing of Synthroid at 200 g. I discussed with her and her daughter that after all this is over she should see an bulb sorter. General: non toxic, mild distress due to pain, no Derm: warm, dry Head: atraumatic, normocephalic, symmetric cervical lymphadenopathy, no axillary lymphadenopathy Eyes: EOMI, no lid lag, anicteric sclera Mouth: no lip lesion, mucus membranes moist Cardiovascular: S1S2 reg, no murmur, positive posterior tibial pulse bilateral, Lungs: Coarse breath sounds bilateral , no accessory muscle use Abdominal: soft, nontender to palpation, no guarding, no appreciable organomegaly no appreciable splenomegaly Ext: no gross muscle atrophy, no edema, no contractures Neuro: CN II-XI grossly intact, decreased stregth right leg due to pain, 4/5 in left leg Psych: Alert, oriented, appropriate affect Surgical Risk Stratification NSQIP calculator for open vertebral fracture repair and patient is above average risk for all complications. Patient does not requuire any further testing prior to surgical procedure. - the patient and I called her daughter at bedside who is the patient POA to explain need for surgery and that the patient is high risk but we will do our best to monitor and optimize, They are aware of the need for mechanical ventilation during the procedure and needing to obtain pre-op pulm consult as likely high risk for prolonged mechanical ventilation. All questions answered. They are aware that Beata is high risk due to her O2 dependency, COPD however she cannot live in this amount of pain and not being able to function independently. Shared decision making lead them to conclude at this time that benefits out weight the potential risks. Daughter would like to speak with Dr. Levi for details regarding the surgical procedure and potential outcome s/complications/ and recovery length and they will be speaking later today. NO Hx Of Adrenal insufficiency that is miss information in the chart and patient has never required long-term treatment of adrenal insufficiency For pain management recommend continuing buprenorphine as well as full opiate agonist in the perioperative period due to the anticipated continued need for this medication for pain. We will consult pain management for further recs. - check T3, will need outpatient endocrine evaluation - check ESR adn CRP I spent 47 minutes in the care of this patient independently Including discussion with ortho/spine Dr. Levi and nursing Objective - Vital Signs Vital signs: Vital Signs Temp 98.3 F 08/15/21 13:06 Pulse 73 08/15/21 13:06 Resp 16 08/15/21 13:06 BP 126/73 08/15/21 13:06 Pulse Ox 97 08/15/21 13:06 Intake & Output 08/14/21 08/15/21 08/15/21 18:59 06:59 18:59 Intake Total 200 100 Balance 200 100 Weight 68.039 kg Intake: Intake, IV Titration 200 Amount Sodium Chloride 0.9% 1, 200 000 ml @ 100 mls/hr IV . Q10H [facility] Rx#:[id number] Oral 100 Other: Voiding Method Diaper # Voids 0 0 - Labs CBC & Chem 7: 08/15/21 05:37 08/15/21 05:37 Labs: Abnormal Lab Results - Last 24 Hours (Table) 08/14/21 08/14/21 08/15/21 Range/Units 11:13 13:55 05:37 WBC 17.7 H (3.8-10.6) k/uL Neutrophils # (Manual) 12.20 H (1.3-7.7) k/uL Monocytes # (Manual) 3.36 H (0-1.0) k/uL Eosinophils # (Manual) 0.71 H (0-0.7) k/uL Potassium (3.5-5.5) mmol/L BUN (9.0-27.0) mg/dL BUN/Creatinine Ratio (12.00-20.00) Ratio Calcium (8.7-10.3) mg/dL Total Bilirubin (0.30-1.20) mg/dL AST (13-35) U/L ALT (8-44) U/L CK-MB (CK-2) 4.5 H (0.0-2.4) ng/mL TSH 91.300 H (0.350-5.500) uIU/mL Free (T4) Reflex I <0.100 L (0.800-1.800) ng/dL 08/15/21 Range/Units 05:37 WBC (3.8-10.6) k/uL Neutrophils # (Manual) (1.3-7.7) k/uL Monocytes # (Manual) (0-1.0) k/uL Eosinophils # (Manual) (0-0.7) k/uL Potassium 3.4 L (3.5-5.5) mmol/L BUN 8.5 L (9.0-27.0) mg/dL BUN/Creatinine Ratio 11.38 L (12.00-20.00) Ratio Calcium 8.1 L (8.7-10.3) mg/dL Total Bilirubin 0.20 L (0.30-1.20) mg/dL AST 56 H (13-35) U/L ALT 47 H (8-44) U/L CK-MB (CK-2) (0.0-2.4) ng/mL TSH (0.350-5.500) uIU/mL Free (T4) Reflex I (0.800-1.800) ng/dL
--- NOTE | 2021-08-15 11:25 | P.PN ---
Subjective Progress Note Date: 08/15/21 The patient is seen at bedside and feels about the same. She continues to have low back pain. Orthopedic team evaluated the patient and will go for surgical decompression and stabilization of L4 suzanne fracture. They felt it was L4 burst fracture with near vertebra plana concerning for infection vs pathological process. Objective - Vital Signs Vital signs: Vital Signs Temp 97.8 F 08/15/21 05:15 Pulse 63 08/15/21 05:15 Resp 20 08/15/21 05:15 BP 121/70 08/15/21 05:15 Pulse Ox 99 08/15/21 05:15 Intake & Output 08/14/21 08/15/21 08/15/21 18:59 06:59 18:59 Intake Total 200 100 Balance 200 100 Weight 68.039 kg Intake: Intake, IV Titration 200 Amount Sodium Chloride 0.9% 1, 200 000 ml @ 100 mls/hr IV . Q10H [facility] Rx#:[id number] Oral 100 Other: Voiding Method Diaper # Voids 0 0 - Exam GENERAL: The patient is lying in bed and is not in acute distress. NEUROLOGICAL: Higher mental function: The patient is awake, alert, oriented to self, place and time. Patient is following commands. No aphasia and no neglect. Cranial nerves: The pupils are round, equal and reactive to light and accommodation. Visual plascencia are full to confrontation throughout. Extraocular movement is intact no nystagmus is noted. Facial sensation is normal to touch throughout. The facial strength is normal throughout. Hearing is mildly decreased bilaterally to hand rub. Tongue is midline and moved [id number] without any difficulty. No dysarthria is noted. Shoulder shrug is normal bilaterally. Motor: Gait is deferred because of pain. The strength is limited on the right lower extremity because of pain but was able to lift above gravity and has good right ankle strength. Otherwise 5 over 5 throughout. Normal tone and bulk. Cerebellum: Normal finger to nose bilaterally. Sensation: Sensation is normal to touch throughout. Reflexes (right/left): 2+ throughout uppers while lowers are 1+ throughout except left knee (since has left prosthetic knee). Plantars are mute bilaterally. WORK-UP: AST of 50, ALT of 39 otherwise the rest of the chemistry panel is unremarkable. PT, INR and PTT is unremarkable. CT of the head is reported as no acute hemorrhage or mass effect. I personally reviewed the CT of the head there is no acute or subacute ischemia and there is no at the proximal hemorrhage. Lumbosacral spine x-rays reported as osteoporotic compression fracture over the L4 Pelvic x-ray on the right is reported as remote traumatic changes are again noted. No acute abnormalities suspected. Patient has postop changes noted in the lower lumbar spine. MRI L-SPINE: Is reported as there is compression fracture of L4 which is new compared to old exam and there is moderately severe spinal stenosis related to posterior mild fragment extension as well as hypertrophic facet arthropathy. The fracture appears essentially new compared to lumbar spine x-ray on 08/04/2020. There is T12 old compression fracture unchanged. - Labs CBC & Chem 7: 08/15/21 05:37 08/15/21 05:37 Labs: Abnormal Lab Results - Last 24 Hours (Table) 08/14/21 08/14/21 08/14/21 Range/Units 11:13 11:13 11:13 WBC 23.2 H (3.8-10.6) k/uL Neutrophils # 15.6 H (1.3-7.7) k/uL Neutrophils # (Manual) (1.3-7.7) k/uL Monocytes # 2.4 H (0-1.0) k/uL Monocytes # (Manual) (0-1.0) k/uL Eosinophils # 0.9 H (0-0.7) k/uL Eosinophils # (Manual) (0-0.7) k/uL Potassium (3.5-5.5) mmol/L Carbon Dioxide 34 H (22-30) mmol/L BUN (9.0-27.0) mg/dL BUN/Creatinine Ratio (12.00-20.00) Ratio Glucose 106 H (74-99) mg/dL Calcium (8.7-10.3) mg/dL Total Bilirubin (0.30-1.20) mg/dL AST 50 H (14-36) U/L ALT 39 H (4-34) U/L CK-MB (CK-2) (0.0-2.4) ng/mL TSH 91.300 H (0.350-5.500) uIU/mL Free (T4) Reflex I <0.100 L (0.800-1.800) ng/dL 08/14/21 08/15/21 08/15/21 Range/Units 13:55 05:37 05:37 WBC 17.7 H (3.8-10.6) k/uL Neutrophils # (1.3-7.7) k/uL Neutrophils # (Manual) 12.20 H (1.3-7.7) k/uL Monocytes # (0-1.0) k/uL Monocytes # (Manual) 3.36 H (0-1.0) k/uL Eosinophils # (0-0.7) k/uL Eosinophils # (Manual) 0.71 H (0-0.7) k/uL Potassium 3.4 L (3.5-5.5) mmol/L Carbon Dioxide (22-30) mmol/L BUN 8.5 L (9.0-27.0) mg/dL BUN/Creatinine Ratio 11.38 L (12.00-20.00) Ratio Glucose (74-99) mg/dL Calcium 8.1 L (8.7-10.3) mg/dL Total Bilirubin 0.20 L (0.30-1.20) mg/dL AST 56 H (14-36) U/L ALT 47 H (4-34) U/L CK-MB (CK-2) 4.5 H (0.0-2.4) ng/mL TSH (0.350-5.500) uIU/mL Free (T4) Reflex I (0.800-1.800) ng/dL Assessment and Plan Assessment: Acute L4 compression fracture Right lower posterior back pain causing limitation in movement of right lower extremity---(It was hard to assess strength but was able to lift above gravity) Right lumbar radiculopathy History of opoid overdose (according to nurse in past) Chronic back pain status post fusion over the T12 kyphoplasty Old left T12 compression fracture. History of right hip fracture COPD on home oxygen Osteoporosis History of esstentional tremor Hypothyroidism Plan: Orthopedic surgery team is on board and is considering surgery tomorrow. They also ordered MRI C-spine and T-spine and CT thoracic and lumbar spine. Consulted PT and OT are consulted Consider pain management consultation. We'll defer the rest of the medical management to the primary team The plan is discussed with the patient. Keon Steven M.D. Neuro-Hospitalist Time with Patient: Less than 30
[2021-08-15] MEDS ORDERED: VANCOMYCIN IV PER PHARMACY 1 EACH MISC MISCELLANE PRN (11:55)
[2021-08-15 11:59] LABS: Appearance,Urine Clear (Clear); Bilirubin,Urine Negative (Negative); Blood,Urine Negative (Negative); Color,Urine Light Yellow; Glucose,Urine (UA) Negative (Negative); Ketones,Urine Negative (Negative); Leukocyte Esterase,Urine Negative (Negative); Nitrite,Urine Negative (Negative); PH, Urine 7.5 (5.0-8.0); Protein,Urine Negative (Negative); Specific Gravity,Urine 1.011 (1.001-1.035); Urobilinogen,Urine <2.0 mg/dL (<2.0)
[2021-08-15] MEDS ORDERED: predniSONE 5 MG TAB PO SCH (12:00)
--- NOTE | 2021-08-15 12:00 | P.CNOR ---
<Kulwant Bhardwaj - Last Filed: 08/15/21 11:53> History of Present Illness - [facility] Consult date: 08/15/21 Consult reason: low back pain History of present illness: Patient is a 66-year-old female who presented to the hospital yesterday with reg ards to severe low back pain, right lower extremity pain and ambulating. Patient has a history of chronic back pain with multiple surgeries. Patient states she did fall off her couch a few days ago, she states around that time is when her back pain and right lower extremity pain became very severe. She's been unable to ambulate since the fall. Patient has a history of COPD, she is on 4 L of oxygen at home. There is a charted history of polysubstance abuse. Patient currently takes a pain medication as prescribed by her primary care doctor. Patient was evaluated at bedside today, she is resting in her hospital bed. She is very uncomfortable and states the pain in her low back in the right lower extremity are very severe. She's having no acute bowel or bladder issues, this including incontinence. She is having no pain down the left lower extremity. She denies any numbness and tingling of the peroneal her genital region. She denies any numbness or tingling in the bilateral lower extremities or bilateral upper extremities. She has no other orthopedic complaints at this time. She states that she normally ambulates with a cane around her house. When discussing patient's previous orthopedic history, she states that she had a previous back surgery over 20 years ago. She'll sign a kyphoplasty done at this hospital by Dr. Streeter she believes about 10 years ago. Review of Systems Constitutional: Reports as per HPI Past Medical History Past Medical History: Asthma, Cancer, COPD, GERD/Reflux, Hyperlipidemia, Pneumonia, Respiratory Disorder, Sleep Apnea/CPAP/BIPAP, Thyroid Disorder Additional Past Medical History / Comment(s): Hematoma chest wall from 06/28/20 fall with R sided rib fractures then later found she had also fractured her R hip, Bilateral hemidiaghramatic paralysis/elevation/weakness, chronic hypoxic respiratory failure with home oxygen at 5L/NC ATC, JAREN but does not tolerate device, tracheobronchitis, agammaglobinemia-now takes oral med for this, adrenal insufficiency, endocarditis, anemia, hiatal hernia, "borderline diabetes", chronic low back pain, DDD, osteoporosis, fractured vertabra x2, chronic pain syndrome, RLS, essential tremors, basal cell skin cancer with removals, hypothyroid, urine incontinence, odteopenia. History of Any Multi-Drug Resistant Organisms: None Reported Past Surgical History: Adenoidectomy, Appendectomy, Back Surgery, Breast Surgery, Cholecystectomy, Hysterectomy, Joint Replacement, Tonsillectomy Additional Past Surgical History / Comment(s): R breast bx, bilateral breast reduction/precancer, skin cancer with removals, back fusion with hardware, T12 kyphoplasty, L knee arthroscopy/ACL repair, total L knee arthroplasty, epidural back injections, colonoscopy, hemorrhoidectomy. Status post right chest I&D of hematoma. Past Anesthesia/Blood Transfusion Reactions: No Reported Reaction, Family History of Problems w/ Anesthesia, Motion Sickness Additional Past Anesthesia/Blood Transfusion Reaction / Comm: "brother was awake during whole surgery" Past Psychological History: No Psychological Hx Reported Smoking Status: Second hand smoke exposure Past Alcohol Use History: None Reported Past Drug Use History: None Reported - Past Family History Mother Family Medical History: Cancer Additional Family Medical History / Comment(s): Metastatic breast cancer. Father Family Medical History: Cancer Additional Family Medical History / Comment(s): Lung cancer Medications and Allergies Home Medications Medication Instructions Recorded Confirmed Type Albuterol Nebulized [Ventolin 2.5 mg INHALATION RT-QID PRN 06/28/20 08/14/21 History Nebulized] Alendronate Sodium [Fosamax] 70 mg PO Q7D 06/28/20 08/14/21 History Budesonide/Formoterol Fumarate 2 puff INHALATION RT-BID 06/28/20 08/14/21 Hi story [Symbicort 160-4.5 Mcg Inhaler] Levothyroxine Sodium [Tirosint-Carly] 200 mcg SL AC-BRKFST 06/28/20 08/14/21 History Mirtazapine [Remeron] 15 mg PO HS 06/28/20 08/14/21 History Montelukast [Singulair] 10 mg PO HS 06/28/20 08/14/21 History Rosuvastatin [Crestor] 10 mg PO HS 06/28/20 08/14/21 History Topiramate [Topamax] 100 mg PO BID 06/28/20 08/14/21 History predniSONE 5 mg PO DAILY@1200 06/28/20 08/14/21 History rOPINIRole HCL [Requip] 2 mg PO HS 06/28/20 08/14/21 History Primidone [Mysoline] 25 mg PO TID 09/05/20 08/14/21 History Ipratropium Nebulized [Atrovent 0.5 mg INHALATION RT-QID PRN 12/21/20 08/14/21 History Nebulized 0.2 MG/ML] Gabapentin [Neurontin] 100 mg PO TID cap 12/24/20 08/14/21 Rx Baclofen 10 mg PO BID PRN 08/14/21 08/14/21 History Buprenorphine HCl [Belbuca] 300 mcg BUCCAL BID 08/14/21 08/14/21 History DULoxetine HCL [Cymbalta] 30 mg PO HS 08/14/21 08/14/21 History Diclofenac Sodium [Voltaren] 75 mg PO BID 08/14/21 08/14/21 History EPINEPHrine (Auto Inject) [Epipen] 0.3 mg IM ONCE PRN 08/14/21 08/14/21 History Ferrous Sulfate [Feosol] 325 mg PO DAILY 08/14/21 08/14/21 History Fluticasone/Umeclidin/Vilanter 1 puff INHALATION RT-DAILY 08/14/21 08/14/21 History [Trelegy Ellipta 200-62.5-25] Hizentra Infusion 20 gm SQ Q14D 08/14/21 08/14/21 History Sulfamethox-Tmp 800-160Mg [Bactrim 1 tab PO MOWEFR 08/14/21 08/14/21 History DS 800-160 mg] Allergies Allergy/AdvReac Type Severity Reaction Status Date / Time aspirin Allergy Rash/Hives Verified 08/14/21 13:02 bee pollen Allergy Anaphylaxis Verified 08/14/21 13:02 cefdinir [From Omnicef] Allergy Anaphylaxis Verified 08/14/21 13:02 clarithromycin [From Biaxin] Allergy Anaphylaxis Verified 08/14/21 13:02 ibuprofen [From Advil] Allergy Anaphylaxis Verified 08/14/21 13:02 Iodinated Contrast Media Allergy Anaphylaxis Verified 08/14/21 13:02 [Iodinated Contrast Media - IV Dye] iodine Allergy Anaphylaxis Verified 01/19/22 13:02 omalizumab [From Xolair] Allergy Anaphylaxis Verified 08/14/21 13:02 Penicillins Allergy Dyspnea Verified 08/14/21 13:02 prochlorperazine edisylate Allergy Rash/Hives Verified 08/14/21 13:02 [From Compazine] prochlorperazine maleate Allergy Rash/Hives Verified 08/14/21 13:02 [From Compazine] shellfish derived Allergy Anaphylaxis Verified 08/14/21 13:02 Physical Examination Gen: AOx3, NAD VSS stable at this time Integument: Exam of the posterior back, she has a well-healed incision near the midline aspect of the thoracic/lumbar junction. There is no areas of erythema, there is no areas of fluctuance appreciated Palpation: Tenderness with palpation to the midline and paraspinal regions of the lower thoracic and lumbar region, she demonstrates some cervical tenderness ROM: Range of motion in all major muscle groups of the bilateral upper extremities Full range of motion all major muscle groups left lower extremities Range of motion is intact in most muscle groups of the right lower extremity, she does demonstrate difficulty with hip flexion and straight leg raise Sensory Exam: Senory exam to light touch is intact C5-T1 Senosry exam to light touch is intact L2-S1 Motor: 4+/5 strength appreciated in the bilateral upper extremities with shoulder elevation, abduction, elbow extension, elbow extension, wrist flexion, wheel alignment mechanic strength 4+/5 strength appreciated in the left lower extremity with hip flexion, knee extension, knee flexion, plantar flexion, dorsiflexion, EHL, FHL 4/5 strength is appreciated in the right lower extremity with plantar flexion, dorsiflexion, EHL, FHL, 35 strength is appreciated in the lower extremity with hip flexion, knee extension, knee flexion ] Results - Labs Labs: Abnormal Lab Results - Last 24 Hours (Table) 08/14/21 08/14/21 08/15/21 Range/Units 11:13 13:55 05:37 WBC 17.7 H (3.8-10.6) k/uL Neutrophils # (Manual) 12.20 H (1.3-7.7) k/uL Monocytes # (Manual) 3.36 H (0-1.0) k/uL Eosinophils # (Manual) 0.71 H (0-0.7) k/uL Potassium (3.5-5.5) mmol/L BUN (9.0-27.0) mg/dL BUN/Creatinine Ratio (12.00-20.00) Ratio Calcium (8.7-10.3) mg/dL Total Bilirubin (0.30-1.20) mg/dL AST (13-35) U/L ALT (8-44) U/L CK-MB (CK-2) 4.5 H (0.0-2.4) ng/mL TSH 91.300 H (0.350-5.500) uIU/mL Free (T4) Reflex I <0.100 L (0.800-1.800) ng/dL 08/15/21 Range/Units 05:37 WBC (3.8-10.6) k/uL Neutrophils # (Manual) (1.3-7.7) k/uL Monocytes # (Manual) (0-1.0) k/uL Eosinophils # (Manual) (0-0.7) k/uL Potassium 3.4 L (3.5-5.5) mmol/L BUN 8.5 L (9.0-27.0) mg/dL BUN/Creatinine Ratio 11.38 L (12.00-20.00) Ratio Calcium 8.1 L (8.7-10.3) mg/dL Total Bilirubin 0.20 L (0.30-1.20) mg/dL AST 56 H (13-35) U/L ALT 47 H (8-44) U/L CK-MB (CK-2) (0.0-2.4) ng/mL TSH (0.350-5.500) uIU/mL Free (T4) Reflex I (0.800-1.800) ng/dL H & H 08/14/21 08/15/21 Range/Units 11:13 05:37 Hgb 14.4 13.9 (11.4-16.0) gm/dL Hct 45.3 44.2 (34.0-46.0) % Coagulation 08/14/21 Range/Units 11:13 INR 1.0 (<1.2) Result Diagrams: 08/15/21 05:37 08/15/21 05:37 - Diagnostic results Lumbar AP/lateral x-ray: report reviewed, image reviewed Lumbar MRI with contrast: report reviewed, image reviewed Assessment and Plan Assessment: Low back pain Right lower extremity radiculopathy L4 burst fracture Concern for infected/pathological process Leukocytosis Multiple medical comorbidities Plan: I was able to discuss the case, including with physical exam findings and imaging studies with attending Dr. Levi. After review of the MRI of the lumbar spine, Dr. Levi has recommended surgery, he is also ordered multiple imaging test, this including MRI of the cervical and thoracic spine. He is also ordered thoracic and lumbar CT scans for surgical planning. I did discuss the patient that surgical intervention would be needed, she was made aware that Dr. Levi would be available to discuss the case in further detail and also speak with family regarding this. Did discuss with internal medicine regarding pain control, we did start IV Decadron 4 mg every 6 hours. we will also utilize narcotics, we will titrate appropriately Regular diet at this time, nothing by mouth after midnight. Planning for surgery on 08/16/2021, consent will be obtained prior to procedure GI and DVT prophylaxis, will begin subcu medication after surgery Bedrest at this time PT/OT evaluation after surgery Further recommendations to follow <Reji Levi - Last Filed: 08/15/21 13:10> Physical Examination Osteopathic Statement: *. No significant issues noted on an osteopathic structural exam other than those noted in the History and Physical/Consult. Results - Labs Labs: Abnormal Lab Results - Last 24 Hours (Table) 08/14/21 08/14/21 08/15/21 Range/Units 11:13 13:55 05:37 WBC 17.7 H (3.8-10.6) k/uL Neutrophils # (Manual) 12.20 H (1.3-7.7) k/uL Monocytes # (Manual) 3.36 H (0-1.0) k/uL Eosinophils # (Manual) 0.71 H (0-0.7) k/uL Potassium (3.5-5.5) mmol/L BUN (9.0-27.0) mg/dL BUN/Creatinine Ratio (12.00-20.00) Ratio Calcium (8.7-10.3) mg/dL Total Bilirubin (0.30-1.20) mg/dL AST (13-35) U/L ALT (8-44) U/L CK-MB (CK-2) 4.5 H (0.0-2.4) ng/mL TSH 91.300 H (0.350-5.500) uIU/mL Free (T4) Reflex I <0.100 L (0.800-1.800) ng/dL 08/15/21 Range/Units 05:37 WBC (3.8-10.6) k/uL Neutrophils # (Manual) (1.3-7.7) k/uL Monocytes # (Manual) (0-1.0) k/uL Eosinophils # (Manual) (0-0.7) k/uL Potassium 3.4 L (3.5-5.5) mmol/L BUN 8.5 L (9.0-27.0) mg/dL BUN/Creatinine Ratio 11.38 L (12.00-20.00) Ratio Calcium 8.1 L (8.7-10.3) mg/dL Total Bilirubin 0.20 L (0.30-1.20) mg/dL AST 56 H (13-35) U/L ALT 47 H (8-44) U/L CK-MB (CK-2) (0.0-2.4) ng/mL TSH (0.350-5.500) uIU/mL Free (T4) Reflex I (0.800-1.800) ng/dL H & H 08/14/21 08/15/21 Range/Units 11:13 05:37 Hgb 14.4 13.9 (11.4-16.0) gm/dL Hct 45.3 44.2 (34.0-46.0) % Coagulation 08/14/21 Range/Units 11:13 INR 1.0 (<1.2) Result Diagrams: 08/15/21 05:37 08/15/21 05:37
--- NOTE | 2021-08-15 14:17 | CT ---
EXAMINATION TYPE: CT thor lumbar spine wo con DATE OF EXAM: 08/15/2021 COMPARISON: CT lumbar spine September 03, 2019. MRI lumbar spine August [address] abdomen and pelvis December 26, 2020. HISTORY: compression fracture CT DLP: 1077.1 mGycm Automated exposure control for dose reduction was used. FINDINGS: Osseous structures redemonstrated demineralized. There is persistent vertebroplasty at mild compressi on fracture or height loss T12 vertebra. There is comminuted fracture deformity through the L4 verteb ra with moderate to severe central height loss. There is significant lucent component extending throu gh the superior endplate and inferior endplate sagittal image 24 also extending to the anterior endpl ate. There is slight posterior retropulsion along the superior posterior L4 vertebra measuring around 5 mm into the anterior spinal canal image 28 series 19. Persistent moderate to severe disc space irineo rowing L5-S1 level incidentally seen. Findings correlate with the MRI from one day earlier. No additi onal acute or subacute displaced fracture is seen. There has been prior surgery in the mid to lower lumbar spine with posterior laminectomy defects and spinous process resection at L4 level. Advanced facet arthropathy at this level is seen. There are so me ossific fusion below this the posterior elements lumbosacral junction with some ill-defined sclero sis in no identified involving the upper sacrum felt to reflect healed insufficiency fracture which i s new from the 2019 CT. This however was present on December 26, [address] Low lung volumes with posterior basilar consolidation and/or atelectasis is present. Visualized abdom en and upper pelvis are unremarkable. Impression: Confirmation of acute or subacute moderate to severe burst type fracture at L4 level is n ew from December 26, 2020 CT. It has significant lucent component favoring acute etiology on CT but not as a much edema as would expect an MRI to confirm this. Slight posterior retropulsion is redemonstrated correlating with MRI. Osseous structures are demineralized. No additional acute or subacute fracture s in the thoracolumbar spine are demonstrated.
[2021-08-15] MEDS ORDERED: POTASSIUM CHLORIDE ER 20 MEQ TAB.ER PO STA (15:12)
--- NOTE | 2021-08-15 15:18 | MR ---
EXAMINATION TYPE: MR cspine/tspine wo/w con DATE OF EXAM: 08/15/2021 COMPARISON: CT thoracic spine earlier today. CT cervical spine December 21, 2020 HISTORY: possible epidural infection. Pain and fever. TECHNIQUE: Multiplanar, multisequence imaging of cervical and thoracic spine are performed without an d with IV contrast, patient injected with 7 cc of gadolinium for the study. FINDINGS: Exam suboptimal as patient unable to hold still. Craniocervical junction is maintained. Spi nal cord shows normal caliber and signal. Alignment is satisfactory. Vertebral body heights and disc space heights are maintained. Bone marrow signal intensity is preserved. No suspicious postcontrast e nhancement is seen. There is posterior disc herniation effacing the anterior thecal sac at C5-C6 level on axial image 31. There is larger disc herniation effacing the anterior thecal sac at C6-C7 level. Spinal cord shows normal course, caliber, and signal as it courses the thoracic spine. Vertebroplast y and mild height loss at T12 vertebra redemonstrated Vertebral body heights and alignment are satisf actory. Disc space heights are maintained. A few scattered tiny posterior disc herniations throughout the thoracic spine. Small hemangioma is noted posterior superior T9 vertebra and anterior T3 vertebr a. Postcontrast images show partial enhancement of single left sided thoracolumbar nerve sagittal francisco j ge 8 corresponding to axial image 17 where it is less well identified but seen exiting at the T11-T12 neural foramina. No suspicious epidural enhancement or epidural fluid collection. Review of the axial images shows no significant spinal canal stenosis or neural foraminal narrowing a t any thoracic level. Small to tiny bilateral pleural effusions are present. Impression: No suspicious epidural or paraspinal fluid collections or enhancement to suggest infectio n and/or abscess.
[2021-08-15] MEDS: VANCOMYCIN 1,250 MG in SODIUM CHLORIDE 0.9% 250 ML IVPB SCH (15:36)
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
[2021-08-15 15:50] LABS: ABG Base Excess 2.7 mmol/L; ABG HCO3 28 mmol/L (21-25); ABG Oxygen Saturation 97.2 % (94-97); ABG PCO2 51 mmHg (35-45); ABG PH 7.35 (7.35-7.45); ABG PO2 85 mmHg (83-108); ABG TCO2 30 mmol/L (19-24); Allen Test Performed? Yes
[2021-08-15] MEDS: HYDROmorphone 1 MG/ML 1 ML SYRINGE IVP PRN ×2 (18:26→22:32)
[2021-08-15] MEDS: MELATONIN 3 MG TABLET PO PRN (22:28)
[2021-08-15] MEDS: DULoxetine HCL 30 MG CAPSULE.DR PO SCH (22:28)
[2021-08-15] MEDS: MONTELUKAST 10 MG TAB PO SCH (22:28)
[2021-08-15] MEDS: ATORVASTATIN 20 MG TAB PO SCH (22:29)
[2021-08-15] MEDS: MIRTAZAPINE 15 MG TAB PO SCH (22:53)
[2021-08-15] MEDS: BUPRENORPHINE 300 MCG SUBLINGUAL SCH (22:53)
--- NOTE | 2021-08-15 23:09 | P.CONS ---
History of Present Illness - Reason for Consult Consult date: 08/15/21 possible osteomyelitis of L4 Requesting physician: Gricelda Sullivan - Chief Complaint low back pain x days - History of Present Illness History of present illness : Patient is 66-year female was brought into the ER yesterday morning for evaluation of right leg weakness that apparently has been going on for about a week before presentation to the hospital patient also complaining of lower back pain that started after pain did have a fall. Is having the pain in the low back to be more of the dull aching to sharp almost 7-8 out of 10 is some relation to the right leg patient denies any bowel or bladder problem patient denies having any fever or any chills and no fever has been recorded with his hospitalization patient noticed to have elevated white count on admission which is currently down to 17.7 kidney function was normal urine has been negative COVID PCR was negative patient did have a lumbar x-ray osteoporotic compression fracture L4 patient did have lumbar spine x-ray compression fracture of L4 which is new compared to her exam and there is moderately severe spinal stenosis and no fracture to the thoracic spine patient has been evaluated by spine surgery planning for surgical intervention tomorrow vancomycin was added blood cultures have been drawn infectious he was consulted with concern for possible osteo and the patient with common variable immunodeficiency Review of system: CONSTITUTIONAL: Positive for weakness denies fever. EYES: No complaint. ENT: No complaint. RESPIRATORY: No complaint. CARDIOVASCULAR: No complaint. GENITOURINARY: No complaint. GASTROINTESTINAL: No complaint. MUSCULOSKELETAL: As per history of present illness. INTEGUMENTARY: No complaint. PSYCHOLOGIC: No complaint. ENDOCRINE: No complaint. NEUROLOGIC: No complaint. Past medical history : Reviewed, documented below Past surgical history : Reviewed, documented below Social history: Reviewed, documented below Medications: Reviewed, as documented below EXAMINATION: Vital sigans= Reviewed and documented below GENERAL DESCRIPTION: Elderly female lying in bed, no distress. No tachypnea or accessory muscle of respiration use. HEENT: Shows Pallor , no scleral icterus. Oral mucous membrane is dry. NECK: Trachea central, no thyromegaly. LUNGS: Unlabored breathing. Clear to auscultation anteriorly. No wheeze or crackle. HEART: S1, S2, regular rate and rhythm. ABDOMEN: Soft, no tenderness , guarding or rigidity EXTREMITIES: No edema of feet. SKIN: No rash, no masses palpable. NEUROLOGICAL: The patient is awake, alert, oriented x3, mood and affect normal. LABS AND RADIOLOGY: Reviewed results see below Assessment : Patient presented to hospital with right leg and lower back pain in this patient on date, recent follow-up with evidence of L4 compression fracture patient did not have any fevers and recent admission did have elevated white count which could be related to the trauma and fall patient is clinically not behaving as osteomyelitis though not entirely excluded Plan: 1-we will wait for surgical intervention and deep cultures 2-obtain a CRP and a sed rate 3-as the patient does not look toxic recommend holding any systemic chemotherapy till the surgical procedure is completed We will follow on clinical condition and cultures to further adjust medication if needed Multiple family members at the bedside multiple questions and concerns were answered Thank you for this consultation we will follow the patient along with you Past Medical History Past Medical History: Asthma, Cancer, COPD, GERD/Reflux, Hyperlipidemia, Pneumonia, Respiratory Disorder, Sleep Apnea/CPAP/BIPAP, Thyroid Disorder Additional Past Medical History / Comment(s): Hematoma chest wall from 06/28/20 fall with R sided rib fractures then later found she had also fractured her R hi p, Bilateral hemidiaghramatic paralysis/elevation/weakness, chronic hypoxic respiratory failure with home oxygen at 5L/NC ATC, JAREN but does not tolerate device, tracheobronchitis, agammaglobinemia-now takes oral med for this, adrenal insufficiency, endocarditis, anemia, hiatal hernia, "borderline diabetes", chronic low back pain, DDD, osteoporosis, fractured vertabra x2, chronic pain syndrome, RLS, essential tremors, basal cell skin cancer with removals, hypothyroid, urine incontinence, odteopenia. History of Any Multi-Drug Resistant Organisms: None Reported Past Surgical History: Adenoidectomy, Appendectomy, Back Surgery, Breast Surgery, Cholecystectomy, Hysterectomy, Joint Replacement, Tonsillectomy Additional Past Surgical History / Comment(s): R breast bx, bilateral breast reduction/precancer, skin cancer with removals, back fusion with hardware, T12 kyphoplasty, L knee arthroscopy/ACL repair, total L knee arthroplasty, epidural back injections, colonoscopy, hemorrhoidectomy. Status post right chest I&D of hematoma. Past Anesthesia/Blood Transfusion Reactions: No Reported Reaction, Family History of Problems w/ Anesthesia, Motion Sickness Additional Past Anesthesia/Blood Transfusion Reaction / Comm: "brother was awake during whole surgery" Past Psychological History: No Psychological Hx Reported Smoking Status: Second hand smoke exposure Past Alcohol Use History: None Reported Past Drug Use History: None Reported - Past Family History Mother Family Medical History: Cancer Additional Family Medical History / Comment(s): Metastatic breast cancer. Father Family Medical History: Cancer Additional Family Medical History / Comment(s): Lung cancer Medications and Allergies Home Medications Medication Instructions Recorded Confirmed Type Albuterol Nebulized [Ventolin 2.5 mg INHALATION RT-QID PRN 06/28/20 08/14/21 History Nebulized] Alendronate Sodium [Fosamax] 70 mg PO Q7D 06/28/20 08/14/21 History Budesonide/Formoterol Fumarate 2 puff INHALATION RT-BID 06/28/20 08/14/21 History [Symbicort 160-4.5 Mcg Inhaler] Levothyroxine Sodium [Tirosint-Carly] 200 mcg SL AC-BRKFST 06/28/20 08/14/21 History Mirtazapine [Remeron] 15 mg PO HS 06/28/20 08/14/21 History Montelukast [Singulair] 10 mg PO HS 06/28/20 08/14/21 History Rosuvastatin [Crestor] 10 mg PO HS 06/28/20 08/14/21 History Topiramate [Topamax] 100 mg PO BID 06/28/20 08/14/21 History predniSONE 5 mg PO DAILY@1200 06/28/20 08/14/21 History rOPINIRole HCL [Requip] 2 mg PO HS 06/28/20 08/14/21 History Primidone [Mysoline] 25 mg PO TID 09/05/20 08/14/21 History Ipratropium Nebulized [Atrovent 0.5 mg INHALATION RT-QID PRN 12/21/20 08/14/21 History Nebulized 0.2 MG/ML] Gabapentin [Neurontin] 100 mg PO TID cap 12/24/20 08/14/21 Rx Baclofen 10 mg PO BID PRN 08/14/21 08/14/21 History Buprenorphine HCl [Belbuca] 300 mcg BUCCAL BID 08/14/21 08/14/21 History DULoxetine HCL [Cymbalta] 30 mg PO HS 08/14/21 08/14/21 History Diclofenac Sodium [Voltaren] 75 mg PO BID 08/14/21 08/14/21 History EPINEPHrine (Auto Inject) [Epipen] 0.3 mg IM ONCE PRN 08/14/21 08/14/21 History Ferrous Sulfate [Feosol] 325 mg PO DAILY 08/14/21 08/14/21 History Fluticasone/Umeclidin/Vilanter 1 puff INHALATION RT-DAILY 08/14/21 08/14/21 History [Trelegy Ellipta 200-62.5-25] Hizentra Infusion 20 gm SQ Q14D 08/14/21 08/14/21 History Sulfamethox-Tmp 800-160Mg [Bactrim 1 tab PO MOWEFR 08/14/21 08/14/21 History DS 800-160 mg] Allergies Allergy/AdvReac Type Severity Reaction Status Date / Time aspirin Allergy Rash/Hives Verified 08/14/21 13:02 bee pollen Allergy Anaphylaxis Verified 08/14/21 13:02 cefdinir [From Omnicef] Allergy Anaphylaxis Verified 08/14/21 13:02 clarithromycin [From Biaxin] Allergy Anaphylaxis Verified 08/14/21 13:02 ibuprofen [From Advil] Allergy Anaphylaxis Verified 08/14/21 13:02 Iodinated Contrast Media Allergy Anaphylaxis Verified 08/14/21 13:02 [Iodinated Contrast Media - IV Dye] iodine Allergy Anaphylaxis Verified 08/14/21 13:02 omalizumab [From Xolair] Allergy Anaphylaxis Verified 08/14/21 13:02 Penicillins Allergy Dyspnea Verified 08/14/21 13:02 prochlorperazine edisylate Allergy Rash/Hives Verified 08/14/21 13:02 [From Compazine] prochlorperazine maleate Allergy Rash/Hives Verified 08/14/21 13:02 [From Compazine] shellfish derived Allergy Anaphylaxis Verified 08/14/21 13:02 Physical Exam Vitals: Vital Signs Temp Pulse Pulse Resp BP BP BP 08/15/21 13:06 98.3 F 73 16 126/73 08/15/21 05:15 97.8 F 63 20 121/70 08/14/21 20:25 98.2 F 71 20 123/73 08/14/21 20:00 18 08/14/21 19:54 08/14/21 16:50 74 18 163/80 Pulse Ox 08/15/21 13:06 97 08/15/21 05:15 99 08/14/21 20:25 99 08/14/21 20:00 08/14/21 19:54 97 08/14/21 16:50 95 Intake and Output 08/14/21 08/15/21 08/15/21 22:59 06:59 14:59 Intake Total 200 100 Balance 200 100 Intake: Intake, IV Titration 200 Amount Sodium Chloride 0.9% 1, 200 000 ml @ 100 mls/hr IV . Q10H [facility] Rx#:[id number] Oral 100 Other: Voiding Method Diaper # Voids 0 0 Weight 68.039 kg Results CBC & Chem 7: 08/15/21 05:37 08/15/21 05:37 Labs: Abnormal Lab Results - Last 24 Hours (Table) 08/14/21 08/14/21 08/15/21 Range/Units 11:13 13:55 05:37 WBC 17.7 H (3.8-10.6) k/uL Neutrophils # (Manual) 12.20 H (1.3-7.7) k/uL Monocytes # (Manual) 3.36 H (0-1.0) k/uL Eosinophils # (Manual) 0.71 H (0-0.7) k/uL Potassium (3.5-5.5) mmol/L BUN (9.0-27.0) mg/dL BUN/Creatinine Ratio (12.00-20.00) Ratio Calcium (8.7-10.3) mg/dL Total Bilirubin (0.30-1.20) mg/dL AST (13-35) U/L ALT (8-44) U/L CK-MB (CK-2) 4.5 H (0.0-2.4) ng/mL TSH 91.300 H (0.350-5.500) uIU/mL Free (T4) Reflex I <0.100 L (0.800-1.800) ng/dL 08/15/21 Range/Units 05:37 WBC (3.8-10.6) k/uL Neutrophils # (Manual) (1.3-7.7) k/uL Monocytes # (Manual) (0-1.0) k/uL Eosinophils # (Manual) (0-0.7) k/uL Potassium 3.4 L (3.5-5.5) mmol/L BUN 8.5 L (9.0-27.0) mg/dL BUN/Creatinine Ratio 11.38 L (12.00-20.00) Ratio Calcium 8.1 L (8.7-10.3) mg/dL Total Bilirubin 0.20 L (0.30-1.20) mg/dL AST 56 H (13-35) U/L ALT 47 H (8-44) U/L CK-MB (CK-2) (0.0-2.4) ng/mL TSH (0.350-5.500) uIU/mL Free (T4) Reflex I (0.800-1.800) ng/dL
[2021-08-16] MEDS: VANCOMYCIN 1,250 MG in SODIUM CHLORIDE 0.9% 250 ML IVPB SCH ×2 (01:06→14:00)
[2021-08-16] MEDS: HYDROmorphone 1 MG/ML 1 ML SYRINGE IVP PRN ×2 (05:12→22:10)
[2021-08-16 06:00] LABS: HCT 51.4 % (34.0-46.0); HGB 15.2 gm/dL (11.4-16.0); Hypochromasia Marked; MCH 30.6 pg (25.0-35.0); MCHC 29.5 g/dL (31.0-37.0); MCV 103.5 fL (80.0-100.0); Macrocytosis Moderate; Platelet Count 268 k/uL (150-450); RBC 4.96 m/uL (3.80-5.40); WBC 23.4 k/uL (3.8-10.6)
[2021-08-16 06:12] LABS: ALT 53 U/L (4-34); AST 70 U/L (14-36); African American GFR (CKD) >90 (>60 ml/min/1.73 sqM); Albumin 4.1 g/dL (3.5-5.0); Albumin/Globulin Ratio 1.2; Alkaline Phosphatase 95 U/L (38-126); Anion Gap 8 mmol/L; Blood Urea Nitrogen 10 mg/dL (7-17); Calcium 7.9 mg/dL (8.4-10.2); Carbon Dioxide 24 mmol/L (22-30); Chloride 104 mmol/L (98-107); Globulin 3.3 g/dL; Glucose 85 mg/dL (74-99); Magnesium 2.2 mg/dL (1.6-2.3); Non-African American GFR(CKD) 88 (>60 ml/min/1.73 sqM); Phosphorus 3.3 mg/dL (2.5-4.5); Potassium 4.3 mmol/L (3.5-5.1); Sodium 136 mmol/L (137-145); Total Bilirubin 0.6 mg/dL (0.2-1.3); Total Protein 7.4 g/dL (6.3-8.2)
[2021-08-16 06:21] LABS: Prothrombin Time 10.7 sec (9.0-12.0)
[2021-08-16] MEDS: IPRATROPIUM 0.5 MG/2.5 ML NEBU INHALATION SCH ×4 (07:25→19:20)
[2021-08-16] MEDS: SYMBICORT 160-4.5 MCG INHALER INHALATION SCH ×2 (07:26→19:20)
--- NOTE | 2021-08-16 08:12 | P.PN ---
Progress Note - Text Progress Note Date: 08/16/21 Spine Surgery Risk Review Beata Mandel is a 66-year-old female presenting for evaluation of low back pain and inability to ambulate. It was my pleasure to have seen and examined Beata Mandel . In our visit today we have had a chance to go over subjective complaints, physical examination findings and treatments including the natural course history without intervention and various interventional options. The patients imaging demonstrates a L4 burst fracture with retropulsion stenosis potential for infective process. On physical exam, Beata Mandel demonstrates significant pain with any motion pain was ambulation and inability to ambulate weakness in the right lower extremity. I have explained to the patient that as their condition progresses it will cause further neurological deficits and eventual paralysis. Based on the patients imaging, physical exam, and the rapid progression and disabling nature of their symptoms, at this time I recommend surgery in the form or a: Posterior stabilization and decompression L2 to pelvis. I discussed the risk and benefits of this procedure at length with Beata Mandel . The patient and her daughter who is pts POA and I spoke to extensively agreed to considered pursuing the procedure abovementioned. Prior to surgery, she should follow up with her PCP (Cardio, ID, IM etc) for clearance. Questions were invited and answered, and the patient wishes to proceed as outlined below. Currently, I am recommendin. L2 to pelvis stabilization and decompression for L4 burst fracture 2. Follow up with PCP for surgical clearance 3. Review of surgical risks and benefits as well as an educational packet on the proposed surgical procedure. Risks: All surgical procedures come with inherent risks, including those related to positioning, anesthesia, intraoperative findings, and postoperative complications. It is important to understand that surgery does not come with any guarantee of a successful outcome as complications and adverse events are always possible. The patient was given a handout in office today discussing the surgical procedure and risks associated with the intervention, both of which were discussed with the patient. These risks include but are not limited to the following: * Experiencing same, different or even worse symptoms in back, neck, arms, or legs compared to before surgery. * Requiring further surgery or other forms of treatment presently or at some time in the future at same or other levels of the intended spine surgery. * On an extreme but fortunately relatively rare basis severe complication such as blindness, stroke, heart attack, temporary and/or permanent nerve injury, paralysis, coma, or may occur, sometimes without known explanation. * Surgical complications may include but are not limited to risk of infection, fluid accumulation in the surgical dissection site, including a seroma or hematoma, that requires additional surgery, wound drainage, bleeding, new numbness or weakness, vision changes/loss, spinal fluid leakage, non-healing and/or infected incision, headaches, difficulty or inability to swallow, hoarseness, hemopneumothorax, pneumothorax, impotence, retrograde ejaculation, vaginal dryness; injury to nerves, spinal cord, blood vessels, lymphatics or other vital organs (i.e., bowel injury, injury to the great vessels); heterotopic bone formation; complications related to the hardware such as screws, rods, cages including misplaced hardware, device failure, instrumentation at the wrong spine level, hardware fracture/breakage, or hardware loosening; vertebral failure of the spinal column above or below the newly placed hardware; retained surgical instrumentations or devices and the need for further surgery. * Medical risks of the planned spine surgery include but are not limited to generalized Infections to the whole body or local areas outside of the surgical site (sepsis), heart attack, bleeding, anaphylaxis, meningitis, seizure, epilepsy, hearing loss, burn hansen, laceration of the head or other areas of the body, bruising, hypersensitivity of the skin, bladder over distension; allergic reaction; shoulder injury related to positioning; fat, blood and air clots to other areas of the body like heart, lungs, brain; failure of internal organs such as lungs, kidneys, liver and excessive bleeding. If blood transfusions are necessary, note that transfusions may cause intolerance reactions such as anaphylaxis or other complex reactions. * Despite best efforts, the results of spine surgery might not heal in terms of bone, soft tissues such as skin, fascia, ligaments, and joints. Additionally, in order to achieve best possible results, spine surgery may be carried out beyond the initially planned levels and involve decompression, fusion including insertion of hardware at levels other than the original intended area of surgical interest change some portions of the procedure in order to ensure the best possible outcomes. * With spine surgery and spinal fusion, there are different off label uses of instrumentation (devices, implants and hardware) as well as biological substances (bone morphogenic proteins, demineralized bone matrix) as well as using extra bone from allograft sources (i.e. cadaver bone) or autograft (iliac crest bone, ribs, or the spine itself). The patient has been given information about these practices and their inherent risks and benefits. The patient has had a chance to review all the listed information, has been given print outs detailing this information, and has had all his/her questions answered to their satisfaction. It was my pleasure to have seen and examined Beata Mandel . In our visit today we have had a chance to go over my understanding of our patient's current condition, the natural course history without intervention and various interventional options. Questions were invited and answered, and the patient wishes to proceed as outlined above. I have seen and examined the patient for 25 minutes and we have spent more than 50% of the time in repeat and detailed counseling about the patient's condition, its natural course history with out and as much as can be predicted with surgery and re-review of various surgical treatment options. In conclusion, Beata Mandel and and her daughter requested we proceed with the above suggested surgery and are willing to accept risks and limitations of the suggested surgery as nature of the disease process and our best attempts at treatment for the condition. Thank you again for allowing us to be part of your patient's care. Please don't hesitate to contact me if you have any further questions. Signed and authenticated by: Reji [facility] [address] [place] [address] [place] [address] [address]
[2021-08-16 08:46] LABS: Urine Alcohol Negative (Negative); Urine Barbiturate Positive (Negative); Urine Cocaine Negative (Negative); Urine Methadone Negative (Negative); Urine Opiates Negative (Negative); Urine Phencyclidine Negative (Negative)
[2021-08-16] MEDS ORDERED: DEXAMETHASONE SOD PHOSPHATE 4 MG/ML 1 ML VIAL IVP STA (08:46)
--- NOTE | 2021-08-16 08:54 | P.PN ---
Subjective Progress Note Date: 08/16/21 Principal diagnosis: back pain Patient is a 66-year-old female with Common variable immunodeficiency on chronic immunoglobin injects q2 weeks, Opiate use disorder in remission, and COPD with home oxygen at 4 L, obstructive sleep apnea CPAP dependent nightly, GERD, and h ypothyroidism who presented to the emergency department with a chief complaint of right lower extremity weakness, back pain, gait instability, and recurrent falls. Patient states this began approximately one week ago shortly after receiving her booster Moderna Vaccination. In the emergency department she underwent a CT head revealing no acute intercranial abnormality. Her th WBC count was 23.2, chronicially elevated liver enzymes, and elevated carbon dioxide of 34. X-ray of pelvis showed posttraumatic changes to the pubic rami and lumbar spine with reduced bone mineralization, multiple phleboliths are present within the pelvis, no acute fracture or dislocation reported. X-ray lumbar spine revealing an osteoporotic compression fracture of L4 with retropulsed superior endplate suspected. Neurology and orthospine surgery were consulted. MRI lumbar spine revealing compression fracture of L4 with moderately severe spinal stenosis related to posterior mild fragment extension as well as hypertrophic facet arthropathy as well as old T12 compression fracture unchanged. MRI cervial and thoarsic showed no acute pathology. Surgery was recommended by orthospine. Seen and examined at bedside. She continues to be unable to move her right leg without significant pain down her leg and in her low back. She states she cannot continue to live like this. We discussed that she likely will require prolonged mechanical ventilation should she undergo surgery, she still would like to proceed with surgical intervention. She states that she is okay with prolonged mechanical ventilation but point trach she would not want to proceed with that. Again she feels she cannot continue to live like this and surgery is her only viable option. General: non toxic, mild distress, [appears older than stated age Derm: warm, dry, healing abraision left anterior tibial area Head: atraumatic, normocephalic, symmetric Eyes: EOMI, no lid lag, anicteric sclera Mouth: no lip lesion, mucus membranes moist Cardiovascular: S1S2 reg, no murmur, positive posterior tibial pulse bilateral, Lungs: Course bs bilateral, no rhonchi, no rales , no accessory muscle use Abdominal: soft, nontender to palpation, no guarding, no appreciable organomegaly Ext: no gross muscle atrophy, no edema, no contractures Neuro: CN II-XI grossly intact, Muscle stregth 4/5 in b/l UE, 4/5 in L LE, and 3/5 in R LE Psych: Alert, oriented, appropriate affect Assessment and Plan: L4 compression/burst fracture with right lower extremity weakness Gait instability, and recurrent falls - concerns for possible traumatic/malignant/infectious etiology -Orthospine surgery recs appreciated and plan is for surgical decompression and stabilization of L4 burst fracture - decadron -Continue Neuro checks -Bedrest until cleared by orthospine surgery -Fall precautions -PT/OT to begin once cleared by orthospine surgery Acute pain with hx of opiate use disorder - recommend continuing bupe and treating with full opitate agonist - consult pain management Leukocytosis of undetermined etiology History of common variable immunodeficiency -Pro-calcitonin pending -Chest x-ray without signs of infection and UA negative - follow CBC - ID recs appreciated - ESR normal, CRP pending COPD with chronic hypoxic/hypercapnic respiratory failure Obstructive sleep apnea CPAP dependent Chronic diaphragmatic paralysis - maintain SPO2 equal to or greater than 92%, Home O2 4L -Duonebs as needed for SOB and/or wheezing -Incentive Spirometry -Steroids: once off decadron will need home prednisone resumed -Continuation of daily medication regimen including Singulair and Symbicort. -Pulmonology recs appraciated: likely will need prolonged mechanical ventilation Hypothyroidism -TSH of 91.300 and free T4 of less than 0.100. -Continue Levothyroxine and check T3 -Endocrinology upon discharge Transaminitis - chronic - at baseline - conitnue to follow Hypokalemia,resolved DVT prophylaxis: SCDs Discussed with: Nursing, Dr Levi Anticipated discharge: undetermined Anticipated discharge place: SNF VS [facility] VS [facility] A total of 35 minutes was spent on the care of this complex patient more than 50% of the time was spent in counseling and care coordination. Objective - Vital Signs Vital signs: Vital Signs Temp 97.9 F 08/16/21 05:00 Pulse 70 08/16/21 07:33 Resp 16 08/16/21 05:00 BP 137/75 08/16/21 05:00 Pulse Ox 98 08/16/21 05:00 Intake & Output 08/15/21 08/16/21 08/16/21 18:59 06:59 18:59 Intake Total 1550 800 Output Total 325 Balance 1550 475 Intake: Intake, IV Titration 1450 800 Amount Sodium Chloride 0.9% 1, 1200 800 000 ml @ 100 mls/hr IV . Q10H [facility]AL Rx#:[id number] Vancomycin 1,250 mg In 250 Sodium Chloride 0.9% 250 ml @ 125 mls/hr IVPB Q12H [facility]AL Rx#:[id number] Oral 100 Output: Urine 325 Other: Voiding Method Diaper # Voids 2 - Labs CBC & Chem 7: 08/16/21 05:40 08/16/21 05:40 Labs: Abnormal Lab Results - Last 24 Hours (Table) 08/15/21 08/15/21 08/15/21 Range/Units 05:37 10:22 15:32 WBC (3.8-10.6) k/uL Hct (34.0-46.0) % MCV (80.0-100.0) fL MCHC (31.0-37.0) g/dL ABG pCO2 51 H (35-45) mmHg ABG HCO3 28 H (21-25) mmol/L ABG Total CO2 30 H (19-24) mmol/L ABG O2 Saturation 97.2 H (94-97) % Sodium (137-145) mmol/L Potassium 3.4 L (3.5-5.5) mmol/L BUN 8.5 L (9.0-27.0) mg/dL BUN/Creatinine Ratio 11.38 L (12.00-20.00) Ratio Calcium 8.1 L (8.7-10.3) mg/dL Total Bilirubin 0.20 L (0.30-1.20) mg/dL AST 56 H (13-35) U/L ALT 47 H (8-44) U/L Urine Barbiturates Positive A (Negative) 08/16/21 08/16/21 Range/Units 05:40 05:40 WBC 23.4 H (3.8-10.6) k/uL Hct 51.4 H (34.0-46.0) % MCV 103.5 H (80.0-100.0) fL MCHC 29.5 L (31.0-37.0) g/dL ABG pCO2 (35-45) mmHg ABG HCO3 (21-25) mmol/L ABG Total CO2 (19-24) mmol/L ABG O2 Saturation (94-97) % Sodium 136 L (137-145) mmol/L Potassium (3.5-5.5) mmol/L BUN (9.0-27.0) mg/dL BUN/Creatinine Ratio (12.00-20.00) Ratio Calcium 7.9 L (8.7-10.3) mg/dL Total Bilirubin (0.30-1.20) mg/dL AST 70 H (13-35) U/L ALT 53 H (8-44) U/L Urine Barbiturates (Negative)
[2021-08-16] MEDS ORDERED: IV FLUID CONTINUATION 1,000 ML IV ONE ×2 (11:21→11:22)
[2021-08-16] MEDS ORDERED: TRANEXAMIC ACID 1,000 MG in SODIUM CHLORIDE 0.9% 100 ML IV STA ×2 (11:38→11:42)
[2021-08-16] MEDS ORDERED: HYDROCORTISONE SUCCINATE 100 MG/2 ML VIAL IVP ONE (11:40)
[2021-08-16] MEDS: LEVOTHYROXINE SODIUM SUBLINGUAL SCH (11:56)
[2021-08-16] MEDS: GABAPENTIN 100 MG CAP PO SCH (11:57)
[2021-08-16] MEDS: PRIMIDONE 50 MG TAB PO SCH ×3 (11:57→22:59)
[2021-08-16] MEDS: SULFAMETHOX-TMP 800-160MG 1 EACH TAB PO SCH (11:57)
[2021-08-16] MEDS: SODIUM CHLORIDE 0.9% 1,000 ML IV SCH ×2 (11:57→22:07)
[2021-08-16] MEDS: FERROUS SULFATE 325 MG TAB PO SCH (11:57)
[2021-08-16] MEDS: BUPRENORPHINE 300 MCG SUBLINGUAL SCH ×2 (11:57→22:08)
[2021-08-16] MEDS: TOPIRAMATE 100 MG TAB PO SCH ×2 (11:57→22:09)
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
[2021-08-16 12:12] LABS: Glucose,Whole Blood 94 mg/dL (75-99)
[2021-08-16] MEDS ORDERED: SUCCINYLCHOLINE CHLORIDE 100 MG/5 ML SYR IV ONE (12:30)
[2021-08-16] MEDS ORDERED: KETAMINE 10 MG/ML 20 ML VIAL ONE (12:30)
[2021-08-16] MEDS ORDERED: ALBUMIN HUMAN 5% (12.5gm) 250 ML BOTTLE IVPB ONE ×2 (12:30→19:30)
[2021-08-16] MEDS ORDERED: fentaNYL (PF) 50 MCG/ML 2 ML AMP ONE (12:30)
[2021-08-16] MEDS ORDERED: GLYCOPYRROLATE 0.2 MG/ML 2 ML VIAL ONE (12:30)
[2021-08-16] MEDS ORDERED: MIDAZOLAM 2 MG/2 ML VIAL ONE (12:30)
[2021-08-16] MEDS ORDERED: PROPOFOL 10 MG/ML 20 ML VIAL IV ONE (12:30)
[2021-08-16] MEDS ORDERED: TRANEXAMIC ACID 1,000 MG/10 ML VIAL ONE (12:30)
[2021-08-16] MEDS ORDERED: PHENYLEPHRINE-0.9% NACL SYG 1,000 MCG/10 ML SYRINGE ONE (12:30)
[2021-08-16] MEDS ORDERED: NEOSTIGMINE 1 MG/ML 10 ML VIAL ONE (12:30)
[2021-08-16] MEDS ORDERED: ROCURONIUM 10 MG/ML (5 ML VIAL) IV ONE (12:30)
[2021-08-16] MEDS ORDERED: LIDOCAINE 1% INJ 10MG/ML (20 ML MDV) ONE (12:30)
[2021-08-16] MEDS ORDERED: HYDROCORTISONE SUCCINATE 100 MG/2 ML VIAL ONE (12:30)
[2021-08-16] MEDS ORDERED: SODIUM CHLORIDE 0.9% 100 ML BAG ONE (12:30)
[2021-08-16] MEDS ORDERED: GELATIN SPONGE,ABSORB (LARGE) 1 EACH SPONGE TOPICAL ONE ×3 (13:45)
[2021-08-16] MEDS ORDERED: LIDOCAINE 0.5%-EPI 1:200,000 50 ML VIAL SQ ONE (13:45)
[2021-08-16] MEDS ORDERED: BUPIVACAINE (PF) 0.25% 30 ML VIAL SQ ONE (13:45)
[2021-08-16] MEDS ORDERED: THROMBIN (BOVINE) 5,000 UNIT VIAL TOPICAL ONE ×3 (13:46)
[2021-08-16 16:18] LABS: Basophils # (A) 0.2 k/uL (0-0.2); Basophils % (A) 1 %; Eosinophils # (A) 0.4 k/uL (0-0.7); Eosinophils % (A) 2 %; HCT 38.1 % (34.0-46.0); Lymphocytes # (A) 1.8 k/uL (1.0-4.8); Lymphocytes % (A) 8 %; MCHC 32.1 g/dL (31.0-37.0); Mean Platelet Volume 8.3; Monocytes # (A) 1.1 k/uL (0-1.0); Monocytes % (A) 5 %; Neutrophils # (A) 20.1 k/uL (1.3-7.7); Neutrophils % (A) 83 %; Platelet Count 321 k/uL (150-450); RBC 3.94 m/uL (3.80-5.40); RDW 15.3 % (11.5-15.5); WBC 24.1 k/uL (3.8-10.6)
[2021-08-16 16:44] LABS: HGB 12.2 gm/dL (11.4-16.0); MCV 96.5 fL (80.0-100.0)
[2021-08-16] MEDS ORDERED: SODIUM CHLORIDE 0.9% 500 ML 500 ML IV ONE (17:10)
[2021-08-16] MEDS ORDERED: VANCOMYCIN 1,000 MG VIAL MISCELLANE ONE (18:18)
[2021-08-16] MEDS ORDERED: ONDANSETRON 4 MG/2 ML VIAL IVP ONE (19:25)
--- NOTE | 2021-08-16 19:39 | XR ---
EXAMINATION TYPE: XR lumbar spine 2 or 3V DATE OF EXAM: 08/16/2021 COMPARISON: NONE HISTORY: Fusion surgery TECHNIQUE: 19 views FINDINGS: A series of fluoroscopic images show placement of rods and screws fusing posteriorly the l umbar spine from L2 to S1. Normal alignment. No complicating process seen. IMPRESSION: Posterior multilevel fusion surgery.
[2021-08-16 19:50] LABS: Basophils # (A) 0.8 k/uL (0-0.2); Basophils % (A) 2 %; Eosinophils # (A) 0.4 k/uL (0-0.7); Eosinophils % (A) 1 %; HCT 32.2 % (34.0-46.0); HGB 10.6 gm/dL (11.4-16.0); Lymphocytes # (A) 2.3 k/uL (1.0-4.8); Lymphocytes % (A) 5 %; MCH 30.4 pg (25.0-35.0); MCHC 32.8 g/dL (31.0-37.0); MCV 92.6 fL (80.0-100.0); Mean Platelet Volume 8.7; Monocytes # (A) 3.4 k/uL (0-1.0); Monocytes % (A) 7 %; Neutrophils # (A) 38.5 k/uL (1.3-7.7); Neutrophils % (A) 84 %; Platelet Count 282 k/uL (150-450); RBC 3.48 m/uL (3.80-5.40); RDW 15.9 % (11.5-15.5); WBC 45.9 k/uL (3.8-10.6)
[2021-08-16] MEDS ORDERED: HYDROmorphone 0.5 MG/0.5 ML SYRINGE IVP ONE ×4 (20:15→20:35)
[2021-08-16 20:27] LABS: Band Neutrophils % 7 %; Eosinophils # (M) 1.38 k/uL (0-0.7); Lymphocytes # (M) 2.75 k/uL (1.0-4.8); Metamyelocytes # (M) 0.46 k/uL (0); Metamyelocytes % 1 %; Monocytes # (M) 5.97 k/uL (0-1.0); Neutrophils % (M) 70 %; Nucleated Red Blood Cells 0 /100 WBC (0-0); Polychromasia Present; Total Cells Counted 100
[2021-08-16] MEDS ORDERED: SODIUM CHLORIDE 0.9% 1,000 ML IV ONE (20:30)
[2021-08-16] MEDS: DEXAMETHASONE SOD PHOSPHATE 4 MG/ML 1 ML VIAL IVP SCH ×2 (22:06→22:07)
[2021-08-16] MEDS: MONTELUKAST 10 MG TAB PO SCH (22:08)
[2021-08-16] MEDS: MIRTAZAPINE 15 MG TAB PO SCH (22:09)
[2021-08-16] MEDS: GABAPENTIN 300 MG CAP PO SCH (22:09)
[2021-08-16] MEDS: DULoxetine HCL 30 MG CAPSULE.DR PO SCH (22:09)
[2021-08-16] MEDS: ATORVASTATIN 20 MG TAB PO SCH (22:09)
[2021-08-17] MEDS: GABAPENTIN 100 MG CAP PO SCH (00:07)
[2021-08-17] MEDS: DEXAMETHASONE SOD PHOSPHATE 4 MG/ML 1 ML VIAL IVP SCH ×5 (00:12→23:42)
[2021-08-17] MEDS: VANCOMYCIN 1,250 MG in SODIUM CHLORIDE 0.9% 250 ML IVPB SCH ×3 (02:18→20:58)
[2021-08-17] MEDS: HYDROmorphone 1 MG/ML 1 ML SYRINGE IVP PRN ×4 (02:21→23:43)
[2021-08-17] MEDS: SODIUM CHLORIDE 0.9% 1,000 ML IV SCH ×2 (04:42→11:55)
[2021-08-17 06:20] LABS: Anisocytosis Slight; Basophils # (A) 0.4 k/uL (0-0.2); Basophils % (A) 1 %; Eosinophils # (A) 0.1 k/uL (0-0.7); Eosinophils % (A) 0 %; HCT 30.1 % (34.0-46.0); HGB 9.4 gm/dL (11.4-16.0); Hypochromasia Moderate; Lymphocytes # (A) 1.1 k/uL (1.0-4.8); Lymphocytes % (A) 2 %; MCH 30.4 pg (25.0-35.0); MCHC 31.3 g/dL (31.0-37.0); Macrocytosis Slight; Mean Platelet Volume 8.6; Monocytes # (A) 5.3 k/uL (0-1.0); Monocytes % (A) 9 %; Neutrophils # (A) 53.9 k/uL (1.3-7.7); Neutrophils % (A) 87 %; Platelet Count 238 k/uL (150-450); RBC 3.11 m/uL (3.80-5.40); RDW 16.8 % (11.5-15.5)
[2021-08-17 06:34] LABS: African American GFR (CKD) >90 (>60 ml/min/1.73 sqM); Anion Gap 8 mmol/L; Blood Urea Nitrogen 11 mg/dL (7-17); Calcium 7.3 mg/dL (8.4-10.2); Carbon Dioxide 23 mmol/L (22-30); Chloride 108 mmol/L (98-107); Glucose 107 mg/dL (74-99); Magnesium 1.9 mg/dL (1.6-2.3); Non-African American GFR(CKD) >90 (>60 ml/min/1.73 sqM); Potassium 4.6 mmol/L (3.5-5.1); Sodium 139 mmol/L (137-145)
[2021-08-17] MEDS: LEVOTHYROXINE SODIUM SUBLINGUAL SCH (07:25)
[2021-08-17] MEDS: IPRATROPIUM 0.5 MG/2.5 ML NEBU INHALATION SCH ×4 (07:38→21:37)
[2021-08-17] MEDS: SYMBICORT 160-4.5 MCG INHALER INHALATION SCH ×2 (07:38→21:37)
[2021-08-17] MEDS: PRIMIDONE 50 MG TAB PO SCH ×3 (08:36→21:06)
[2021-08-17] MEDS: TOPIRAMATE 100 MG TAB PO SCH ×2 (08:37→21:05)
[2021-08-17] MEDS: GABAPENTIN 300 MG CAP PO SCH ×3 (08:37→21:06)
[2021-08-17] MEDS: FERROUS SULFATE 325 MG TAB PO SCH (08:37)
--- NOTE | 2021-08-17 11:29 | P.PN ---
Subjective Progress Note Date: 08/17/21 Principal diagnosis: L4 burst fracture Patient seen and examined this morning she is doing fairly well. She got up at bedside with physical therapy and injections today at bedside with physical therapy. States that her legs are feeling much better states that she is able to move them much better states that her back feels much more stable as well and less pain. Denies any fevers chills shortness of breath or chest pain at this time. Discuss case with medical management at bedside Objective - Vital Signs Vital signs: Vital Signs Temp 99.9 F H 08/17/21 04:40 Pulse 100 08/17/21 11:21 Resp 18 08/17/21 08:00 BP 107/70 08/17/21 04:40 Pulse Ox 98 08/17/21 04:40 Intake & Output 08/16/21 08/17/21 08/17/21 18:59 06:59 18:59 Intake Total 2860 650 Output Total 325 2130 400 Balance 2535 -1480 -400 Intake: IV 2050 650 Blood Product 810 Rc As-1 Unit 310 [id number] Output: Drainage 80 Right Lower 80 Urine 325 1050 400 Estimated Blood Loss 1000 Other: Voiding Method Diaper Indwelling Catheter Indwelling Catheter # Voids 2 - Exam Patient is alert and oriented 3 appears well-nourished well-hydrated is in no acute distress. They does not appear septic. Mild tenderness to palpation around the incision site There is no edema or ballottement sign. Lower extremities with 4+ out of 5 strength in all major muscle groups improvement in the right lower extremity Upper extremities show 5/5 strength in all major muscle groups. There is FROM that is painless of the b/l UE and LE in all major joints. They are intact to light touch sensation in L2 to S1 nerve distribution. Patient has palpable dorsalis pedis was posterior tibial pulses. Compartments are soft and compressible. Patient shows a negative Homans, Jorgensen's, negative Babinski's negative clonus bilaterally. negative straight leg raise bilaterally. No tensioning signs. Cranial nerves II through XII are grossly intact. Overall alignment is well-maintained in the sagittal coronal planes. Incision is clean dry and intact Drain has about 50 mL in and had about 100 mL overnight - Constitutional General appearance: Present: cooperative - Labs CBC & Chem 7: 08/17/21 06:02 08/17/21 06:02 Labs: Abnormal Lab Results - Last 24 Hours (Table) 08/15/21 08/16/21 08/16/21 Range/Units 10:25 16:00 19:30 WBC 24.1 H 45.9 H (3.8-10.6) k/uL RBC 3.48 L (3.80-5.40) m/uL Hgb 10.6 L (11.4-16.0) gm/dL Hct 32.2 L (34.0-46.0) % RDW 15.9 H (11.5-15.5) % Neutrophils # 20.1 H 38.5 H (1.3-7.7) k/uL Neutrophils # (Manual) 35.30 H (1.3-7.7) k/uL Monocytes # 1.1 H 3.4 H (0-1.0) k/uL Monocytes # (Manual) 5.97 H (0-1.0) k/uL Eosinophils # (Manual) 1.38 H (0-0.7) k/uL Basophils # 0.8 H (0-0.2) k/uL Metamyelocytes # (Man) 0.46 H (0) k/uL Chloride (98-107) mmol/L Glucose (74-99) mg/dL Calcium (8.4-10.2) mg/dL Crossmatch See Detail 08/17/21 08/17/21 Range/Units 06:02 06:02 WBC 62.0 H* (3.8-10.6) k/uL RBC 3.11 L (3.80-5.40) m/uL Hgb 9.4 L (11.4-16.0) gm/dL Hct 30.1 L (34.0-46.0) % RDW 16.8 H (11.5-15.5) % Neutrophils # 53.9 H (1.3-7.7) k/uL Neutrophils # (Manual) (1.3-7.7) k/uL Monocytes # 5.3 H (0-1.0) k/uL Monocytes # (Manual) (0-1.0) k/uL Eosinophils # (Manual) (0-0.7) k/uL Basophils # 0.4 H (0-0.2) k/uL Metamyelocytes # (Man) (0) k/uL Chloride 108 H (98-107) mmol/L Glucose 107 H (74-99) mg/dL Calcium 7.3 L (8.4-10.2) mg/dL Crossmatch Microbiology - Last 24 Hours (Table) 08/16/21 18:24 Wound Culture - Preliminary Other - Other 08/16/21 18:24 Fungal Culture - Preliminary Other - Other 08/16/21 18:24 Anaerobic Culture - Preliminary Other - Other 08/16/21 18:24 Anaerobic Culture - Preliminary Other - Other 08/16/21 18:24 Fungal Culture - Preliminary Other - Other 08/16/21 18:24 Wound Culture - Preliminary Other - Other 08/15/21 15:21 Blood Culture - Preliminary Blood No Growth after 24 hours Assessment and Plan Assessment: 66-year-old female postoperative day 1 L2 to S1 stabilization for L4 burst fracture with decompression L2 to L5 Complex medical patient Plan: -Appreciate inside solar sales consultant and team management. -Activity: Ambulate QID, OOB all meals, up and about, limit lifting bending twisting to less than 5 lbs. Use walker or cane if needed for stability. -Daily PT/OT, increase ambulation strength and balance. -We will order an LSO for extra support on the patient however she does not need this to do therapy at this time -Pain control: Adequate at this time -Meds: reviewed -GI ppx: senna, Miralax -DC lala when up and about, bedside commode if needed -DVT PPX: OK to restart Heparin tonight -Hygiene: Shower today. Maintain dressing clean and dry. Meticulous cleaning after BMs away from incision site -Drains: Maintain for now. Record output -Encourage IS 10x/hr -Dispo: At this time we will plan on a second stage procedure on Thursday, for completion of the corpectomy of L4 with cage placement. This is discussed with the patient and medical management. I discussed with this her family as well last night and they are on board with that as long she is stable to return to the OR and I agree. We will continue to monitor her vitals as well as her labs if she dips we will give her another unit of blood however due to the shortage we will be very conservative with this. She at this point is doing very well with her vitals stable no lightheadedness no other symptoms of anemia. She is doing well at this time.
--- NOTE | 2021-08-17 11:46 | P.PN ---
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 Patient states this began approximately one week ago shortly after receiving her booster Moderna Vaccination. In the emergency department she underwent a CT head revealing no acute intercranial abnormality. Her th WBC count was 23.2, chronicially elevated liver enzymes, and elevated carbon dioxide of 34. X-ray of pelvis showed posttraumatic changes to the pubic rami and lumbar spine with reduced bone mineralization, multiple phleboliths are present within the pelvis, no acute fracture or dislocation reported. X-ray lumbar spine revealing an osteoporotic compression fracture of L4 with retropulsed superior endplate suspected. Neurology and orthospine surgery were consulted. MRI lumbar spine revealing compression fracture of L4 with moderately severe spinal stenosis related to posterior mild fragment extension as well as hypertrophic facet arthropathy as well as old T12 compression fracture unchanged. MRI cervial and thoarsic showed no acute pathology. Surgery was recommended by orthospine she underwent L2-S1 stabilization on 08/16 without any complications. Seen and examined at bedside. States pain is well controlled. She was able to sit on antibiotics without much pain. It is easier to move her right leg witho ut significant muscle pain than yesterday. Denies any unusual chest pain or shortness of breath. Eating and drinking well. General: non toxic, mild distress, appears older than stated age Derm: warm, dry, healing abraision left anterior tibial area Head: atraumatic, normocephalic, symmetric Eyes: EOMI, no lid lag, anicteric sclera Mouth: no lip lesion, mucus membranes moist Cardiovascular: S1S2 reg, no murmur, positive posterior tibial pulse bilateral, Lungs: Course bs bilateral, no rhonchi, no rales , no accessory muscle use Abdominal: soft, nontender to palpation, no guarding, no appreciable organomegaly Ext: no gross muscle atrophy, no edema, no contractures Neuro: CN II-XI grossly intact, Muscle strength 4/5 in b/l UE, 4/5 in L LE, and 3/5 in R LE Psych: Alert, oriented, appropriate affect Assessment and Plan: L4 compression/burst fracture with right lower extremity weakness status post L2 to S1 stabilization on 08/16 with repeat surgery planned on 08/20. Gait instability, and recurrent falls -Orthospine surgery recs - decadron -Continue Neuro checks -Pain control -Fall precautions -PT/OT Acute blood loss anemia -Status post 1 unit of packed red blood cells in the OR -Discussed with Dr. Mclaughlin's an inpatient and had increased bleeding during operation. Recheck a PT and PTT. - follow CBC - check iron studies. Acute pain with hx of opiate use disorder - recommend continuing bupe and treating with full opiate agonist - consult pain management Leukocytosis of undetermined etiology History of common variable immunodeficiency -Suspect component of being reactive in addition to adding Decadron -Pro-calcitoninnegative pre-op -Chest x-ray without signs of infection and UA negative - follow CBC - ID recs appreciated - ESR normal, CRP pending COPD with chronic hypoxic/hypercapnic respiratory failure Obstructive sleep apnea CPAP dependent Chronic diaphragmatic paralysis - maintain SPO2 equal to or greater than 92%, Home O2 4L -Duonebs as needed for SOB and/or wheezing -Incentive Spirometry -Steroids: once off decadron will need home prednisone resumed -Continuation of daily medication regimen including Singulair and Symbicort. -Pulmonology recs appreciated: Hypothyroidism -TSH of 91.300 and free T4 of less than 0.100. -Continue Levothyroxine and check T3 -Endocrinology upon discharge Transaminitis - chronic - at baseline - conitnue to follow Hypokalemia,resolved DVT prophylaxis: SCDs Discussed with: Nursing, Dr Levi Anticipated discharge: undetermined Anticipated discharge place: SNF VS IPR VS LTACH A total of 35 minutes was spent on the care of this complex patient more than 50% of the time was spent in counseling and care coordination. Objective - Vital Signs Vital signs: Vital Signs Temp 99.9 F H 08/17/21 04:40 Pulse 100 08/17/21 11:21 Resp 18 08/17/21 08:00 BP 107/70 08/17/21 04:40 Pulse Ox 98 08/17/21 04:40 Intake & Output 08/16/21 08/17/21 08/17/21 18:59 06:59 18:59 Intake Total 2860 650 Output Total 325 2130 400 Balance 8665 -1480 -400 Intake: IV 2049 650 Blood Product 810 Rc As-1 Unit 310 [id number] Output: Drainage 80 Right Lower 80 Urine 325 1050 400 Estimated Blood Loss 1000 Other: Voiding Method Diaper Indwelling Catheter Indwelling Catheter # Voids 2 - Labs CBC & Chem 7: 08/17/21 06:02 08/17/21 06:02 Labs: Abnormal Lab Results - Last 24 Hours (Table) 08/15/21 08/16/21 08/16/21 Range/Units 10:25 16:00 19:30 WBC 24.1 H 45.9 H (3.8-10.6) k/uL RBC 3.48 L (3.80-5.40) m/uL Hgb 10.6 L (11.4-16.0) gm/dL Hct 32.2 L (34.0-46.0) % RDW 15.9 H (11.5-15.5) % Neutrophils # 20.1 H 38.5 H (1.3-7.7) k/uL Neutrophils # (Manual) 35.30 H (1.3-7.7) k/uL Monocytes # 1.1 H 3.4 H (0-1.0) k/uL Monocytes # (Manual) 5.97 H (0-1.0) k/uL Eosinophils # (Manual) 1.38 H (0-0.7) k/uL Basophils # 0.8 H (0-0.2) k/uL Metamyelocytes # (Man) 0.46 H (0) k/uL Chloride (98-107) mmol/L Glucose (74-99) mg/dL Calcium (8.4-10.2) mg/dL Crossmatch See Detail 08/17/21 08/17/21 Range/Units 06:02 06:02 WBC 62.0 H* (3.8-10.6) k/uL RBC 3.11 L (3.80-5.40) m/uL Hgb 9.4 L (11.4-16.0) gm/dL Hct 30.1 L (34.0-46.0) % RDW 16.8 H (11.5-15.5) % Neutrophils # 53.9 H (1.3-7.7) k/uL Neutrophils # (Manual) (1.3-7.7) k/uL Monocytes # 5.3 H (0-1.0) k/uL Monocytes # (Manual) (0-1.0) k/uL Eosinophils # (Manual) (0-0.7) k/uL Basophils # 0.4 H (0-0.2) k/uL Metamyelocytes # (Man) (0) k/uL Chloride 108 H (98-107) mmol/L Glucose 107 H (74-99) mg/dL Calcium 7.3 L (8.4-10.2) mg/dL Crossmatch Microbiology - Last 24 Hours (Table) 08/16/21 18:24 Wound Culture - Preliminary Other - Other 08/16/21 18:24 Fungal Culture - Preliminary Other - Other 08/16/21 18:24 Anaerobic Culture - Preliminary Other - Other 08/16/21 18:24 Anaerobic Culture - Preliminary Other - Other 08/16/21 18:24 Fungal Culture - Preliminary Other - Other 08/16/21 18:24 Wound Culture - Preliminary Other - Other 08/15/21 15:21 Blood Culture - Preliminary Blood No Growth after 24 hours
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
--- NOTE | 2021-08-17 11:53 | CT ---
EXAMINATION TYPE: CT lumbar spine wo con DATE OF EXAM: 08/17/2021 11:27 AM COMPARISON: CT T-spine 2021 CT abdomen 12/26/2020 HISTORY: Post Op CT DLP: 1038.6 mGycm Automated exposure control for dose reduction was used. Unenhanced CT of the lumbar spine was performed. Bone and soft tissue window settings are submitted as well as coronal and sagittal reconstructions. FINDINGS: The T12 vertebral plasty changes on with cement seen within L2, L3 and L4. Fixation hardware spanning from L2 to 1 is present. Small are seen in this along the surgical bed in the posterior deep back mu scles. There has been a appendectomy changes at L2, L3, L4 and L5. Redemonstration of fracture involv ing L4 with superior endplate deformity and is thought to represent fluid in the vertebral body. Stre ak artifact limits evaluation spinal canal and neural foramen. No evidence of spinal canal stenosis at L1-L2. Streak artifact limits evaluation spinal canal and terri ral foramen from L2-S1. No gross evidence for neural foraminal stenosis at these levels. The spinal c anal is mildly narrowed at L4 secondary to retropulsion from osseous fragment of the L4 vertebral bod y. There are atherosclerotic changes of the arterial vasculature. The gallbladder is surgically absent. The catheter is within the bladder. Pelvic phleboliths are present. IMPRESSION: 1. Interval surgical changes to the lumbar spine with hardware in place and intact. 2. Persistent fracture of the L4 vertebral body with mild retropulsion as seen on prior's. No new fra ctures identified.
[2021-08-17] MEDS ORDERED: VANCOMYCIN TROUGH DUE 1 EACH MISC MISCELLANE ONE (12:00)
[2021-08-17 12:07] LABS: Partial Thromboplastin Time 24.3 sec (22.0-30.0); Prothrombin Time 11.3 sec (9.0-12.0)
--- NOTE | 2021-08-17 13:03 | P.PN ---
Subjective Progress Note Date: 08/17/21 The patient seen at bedside and the patient yesterday had stabilization with decompression of L2 the through L5 with the plan to return to OR on 08/20/2021 for completion of corpectomy of L4 with cage placement. She feels she is doing better but she continues to have the lower back pain. Otherwise denies any neurological problems. Denies any new numbness tingling Objective - Vital Signs Vital signs: Vital Signs Temp 98.6 F 08/17/21 12:27 Pulse 91 08/17/21 12:27 Resp 18 08/17/21 12:27 BP 120/75 08/17/21 12:27 Pulse Ox 96 08/17/21 12:27 Intake & Output 08/16/21 08/17/21 08/17/21 18:59 06:59 18:59 Intake Total 2860 650 Output Total 325 2130 400 Balance 2535 -1480 -400 Intake: IV 2050 650 Blood Product 810 Rc As-1 Unit 310 [id number] Output: Drainage 80 Right Lower 80 Urine 325 1050 400 Estimated Blood Loss 1000 Other: Voiding Method Diaper Indwelling Catheter Indwelling Catheter # Voids 2 - Exam GENERAL: The patient is lying in bed and is not in acute distress. NEUROLOGICAL: Higher mental function: The patient is awake, alert, oriented to self, place and time. Patient is following commands. No aphasia and no neglect. Cranial nerves: The pupils are round, equal and reactive to light. Visual plascencia are full to confrontation throughout. Extraocular movement is intact no nystagmus is noted. Facial sensation is normal to touch throughout. The facial strength is normal throughout. Tongue is midline and moved [id number] without any difficulty. No dysarthria is noted. Shoulder shrug is normal bilaterally. Motor: Gait is deferred because of pain. The strength in lowers are limited because of pain but was has hip flexion of at least 4+ and ankles are 5/5. Otherwise 5 over 5 throughout uppers. Normal tone and bulk. Cerebellum: Normal finger to nose bilaterally. Sensation: Sensation is normal to touch throughout. Plantars are mute bilaterally. WORK-UP: AST of 50, ALT of 39 otherwise the rest of the chemistry panel is unremarkable. PT, INR and PTT is unremarkable. CT of the head is reported as no acute hemorrhage or mass effect. I personally reviewed the CT of the head there is no acute or subacute ischemia and there is no at the proximal hemorrhage. Lumbosacral spine x-rays reported as osteoporotic compression fracture over the L4 Pelvic x-ray on the right is reported as remote traumatic changes are again no jennifer. No acute abnormalities suspected. Patient has postop changes noted in the lower lumbar spine. MRI L-SPINE: Is reported as there is compression fracture of L4 which is new compared to old exam and there is moderately severe spinal stenosis related to posterior mild fragment extension as well as hypertrophic facet arthropathy. The fracture appears essentially new compared to lumbar spine x-ray on 08/04/2020. There is T12 old compression fracture unchanged. CT lumbar and thoracic spine is reported as confirmation of acute or subacute moderate to severe burst type fracture at L4 level is new from my 12/26/2021 CT. Has significant loosened component favoring acute etiology on a CT but not as much as edema as would expect an MRI to confirm this. Slight posture retro- pulses and is redemonstrated correlating with MRI. Osseous structure are demineralized. No additional acute or subacute fracture in the throughout goal of lumbar spine are demonstrated. MRI of the cervical and thoracic spine is reported as no suspicious epidural or paraspinal fluid collection or has been suggest infection and/or abscess. - Labs CBC & Chem 7: 08/17/21 06:02 08/17/21 06:02 Labs: Abnormal Lab Results - Last 24 Hours (Table) 08/15/21 08/16/21 08/16/21 Range/Units 10:25 16:00 19:30 WBC 24.1 H 45.9 H (3.8-10.6) k/uL RBC 3.48 L (3.80-5.40) m/uL Hgb 10.6 L (11.4-16.0) gm/dL Hct 32.2 L (34.0-46.0) % RDW 15.9 H (11.5-15.5) % Neutrophils # 20.1 H 38.5 H (1.3-7.7) k/uL Neutrophils # (Manual) 35.30 H (1.3-7.7) k/uL Monocytes # 1.1 H 3.4 H (0-1.0) k/uL Monocytes # (Manual) 5.97 H (0-1.0) k/uL Eosinophils # (Manual) 1.38 H (0-0.7) k/uL Basophils # 0.8 H (0-0.2) k/uL Metamyelocytes # (Man) 0.46 H (0) k/uL Chloride (98-107) mmol/L Glucose (74-99) mg/dL Calcium (8.4-10.2) mg/dL Crossmatch See Detail 08/17/21 08/17/21 Range/Units 06:02 06:02 WBC 62.0 H* (3.8-10.6) k/uL RBC 3.11 L (3.80-5.40) m/uL Hgb 9.4 L (11.4-16.0) gm/dL Hct 30.1 L (34.0-46.0) % RDW 16.8 H (11.5-15.5) % Neutrophils # 53.9 H (1.3-7.7) k/uL Neutrophils # (Manual) (1.3-7.7) k/uL Monocytes # 5.3 H (0-1.0) k/uL Monocytes # (Manual) (0-1.0) k/uL Eosinophils # (Manual) (0-0.7) k/uL Basophils # 0.4 H (0-0.2) k/uL Metamyelocytes # (Man) (0) k/uL Chloride 108 H (98-107) mmol/L Glucose 107 H (74-99) mg/dL Calcium 7.3 L (8.4-10.2) mg/dL Crossmatch Microbiology - Last 24 Hours (Table) 08/16/21 18:24 Wound Culture - Preliminary Other - Other 08/16/21 18:24 Fungal Culture - Preliminary Other - Other 08/16/21 18:24 Anaerobic Culture - Preliminary Other - Other 08/16/21 18:24 Anaerobic Culture - Preliminary Other - Other 08/16/21 18:24 Fungal Culture - Preliminary Other - Other 08/16/21 18:24 Wound Culture - Preliminary Other - Other 08/15/21 15:21 Blood Culture - Preliminary Blood No Growth after 24 hours Assessment and Plan Assessment: Acute L4 compression fracture s/p decompression of L2 the through L5 on 022 Right lower posterior back pain causing limitation in movement of right lower extremity---(It was hard to assess strength but was able to lift above gravity) Right lumbar radiculopathy History of opoid overdose (according to nurse in past) Chronic back pain status post fusion over the T12 kyphoplasty Old left T12 compression fracture. History of right hip fracture COPD on home oxygen Osteoporosis History of esstentional tremor Hypothyroidism Plan: Acute L4 compression fracture s/p decompression of L2 the through L5 on 08/16/2021 with the plan to return to OR on 08/20/2021 for completion of corpectomy of L4 with cage placement by Orthopedic team. PT and OT are consulted Pain team is consulted for pain management. Pulmonary team is on board. I.D. is on board. Consider pain management consultation. We'll defer the rest of the medical management to the Orthopedic team and primary team The plan is discussed with the patient and Orthopedic attending. Will follow-up with patient sporadically. Dr. Ramos will start neurology service on 08/19/21 AM. Keon Steven M.D. Neuro-Hospitalist Time with Patient: Less than 30
[2021-08-17] MEDS: BUPRENORPHINE 300 MCG SUBLINGUAL SCH ×2 (13:10→21:58)
--- NOTE | 2021-08-17 15:32 | FL ---
Fluoroscopy HISTORY: L2 stabilization 4.1 minutes fluoroscopy time supplied to the referring clinician. 18 intraoperative C-arm images doc ument the procedure. See dictated report from orthopedic surgery.
[2021-08-17] MEDS: AZTREONAM 2 GM in SODIUM CHLORIDE 0.9% 100 ML IVPB SCH ×2 (17:31→23:42)
[2021-08-17 17:35] LABS: % Iron Saturation 9.38 (12.00-45.00)
[2021-08-17] MEDS: DULoxetine HCL 30 MG CAPSULE.DR PO SCH (21:05)
[2021-08-17] MEDS: ATORVASTATIN 20 MG TAB PO SCH (21:05)
[2021-08-17] MEDS: MONTELUKAST 10 MG TAB PO SCH (21:06)
[2021-08-17] MEDS: MIRTAZAPINE 15 MG TAB PO SCH (21:06)
--- NOTE | 2021-08-17 22:09 | P.PN ---
Subjective Progress Note Date: 08/17/21 Patient is 66-year-old female presented to hospital with low back pain and has been diagnosed with the L4 burst fracture in this patient who is status post L2 to S1 stabilization with decompression L2 to L5 that was completed on 08/16/2021. On today's evaluation that is 08/17/2021, the patient denies having any fever or any chills the patient will back pain is currently controlled, the patient denies having any chest pain shortness of breath or cough no nausea no vomiting no abdominal pain no diarrhea Objective - Vital Signs Vital signs: Vital Signs Temp 98.6 F 08/17/21 12:27 Pulse 100 08/17/21 15:18 Resp 18 08/17/21 12:27 BP 120/75 08/17/21 12:27 Pulse Ox 96 08/17/21 12:27 Intake & Output 08/16/21 08/17/21 08/17/21 18:59 06:59 18:59 Intake Total 2860 650 Output Total 325 2130 400 Balance 2535 -1480 -400 Intake: IV 0 650 Blood Product 810 Rc As-1 Unit 310 [id number] Output: Drainage 80 Right Lower 80 Urine 325 1050 400 Estimated Blood Loss 1000 Other: Voiding Method Diaper Indwelling Catheter Indwelling Catheter # Voids 2 - Exam GENERAL DESCRIPTION:[ Patient is awake and alert in no distress] HEENT: [Oral mucosa is dry and no pharyngeal erythema] RESPIRATORY SYSTEM: [Unlabored breathing decreased breath sounds at the base CARDIA VASCULAR SYSTEM: [S1-S2 regular rate and rhythm no murmur] GI: [Abdominal soft there's no tenderness no organomegaly] EXTREMITIES: [No edema feet] - Labs CBC & Chem 7: 08/17/21 06:02 08/17/21 06:02 Labs: Abnormal Lab Results - Last 24 Hours (Table) 08/15/21 08/16/21 08/16/21 Range/Units 10:25 16:00 19:30 WBC 24.1 H 45.9 H (3.8-10.6) k/uL RBC 3.48 L (3.80-5.40) m/uL Hgb 10.6 L (11.4-16.0) gm/dL Hct 32.2 L (34.0-46.0) % RDW 15.9 H (11.5-15.5) % Neutrophils # 20.1 H 38.5 H (1.3-7.7) k/uL Neutrophils # (Manual) 35.30 H (1.3-7.7) k/uL Monocytes # 1.1 H 3.4 H (0-1.0) k/uL Monocytes # (Manual) 5.97 H (0-1.0) k/uL Eosinophils # (Manual) 1.38 H (0-0.7) k/uL Basophils # 0.8 H (0-0.2) k/uL Metamyelocytes # (Man) 0.46 H (0) k/uL Chloride (98-107) mmol/L Glucose (74-99) mg/dL Calcium (8.4-10.2) mg/dL Crossmatch See Detail 08/17/21 08/17/21 Range/Units 06:02 06:02 WBC 62.0 H* (3.8-10.6) k/uL RBC 3.11 L (3.80-5.40) m/uL Hgb 9.4 L (11.4-16.0) gm/dL Hct 30.1 L (34.0-46.0) % RDW 16.8 H (11.5-15.5) % Neutrophils # 53.9 H (1.3-7.7) k/uL Neutrophils # (Manual) (1.3-7.7) k/uL Monocytes # 5.3 H (0-1.0) k/uL Monocytes # (Manual) (0-1.0) k/uL Eosinophils # (Manual) (0-0.7) k/uL Basophils # 0.4 H (0-0.2) k/uL Metamyelocytes # (Man) (0) k/uL Chloride 108 H (98-107) mmol/L Glucose 107 H (74-99) mg/dL Calcium 7.3 L (8.4-10.2) mg/dL Crossmatch Microbiology - Last 24 Hours (Table) 08/16/21 18:24 Wound Culture - Preliminary Other - Other 08/16/21 18:24 Fungal Culture - Preliminary Other - Other 08/16/21 18:24 Anaerobic Culture - Preliminary Other - Other 08/16/21 18:24 Anaerobic Culture - Preliminary Other - Other 08/16/21 18:24 Fungal Culture - Preliminary Other - Other 08/16/21 18:24 Wound Culture - Preliminary Other - Other 08/15/21 15:21 Blood Culture - Preliminary Blood No Growth after 24 hours Assessment and Plan (1) Leukocytosis Current Visit: Yes Status: Acute Code(s): D72.829 - ELEVATED WHITE BLOOD CELL COUNT, UNSPECIFIED SNOMED Code(s): 669787929 (2) Compression fracture of L4 vertebra Current Visit: Yes Status: Acute Code(s): S32.040A - WEDGE COMPRESSION FRACTURE OF FOURTH LUMBAR VERTEBRA, INIT SNOMED Code(s): 999108294 Plan: 1patient with compression fracture of the L4 vertebral with concern for possible Osteomyelitis patient is status post surgery and deep cultures which are currently pending patient's empirically covered with vancomycin 2-patient did have worsening of the white count to be more likely to steroids in view of critical condition Azactam has been added to cover for gram-negative injury of cephalosporin ALLERGY Time with Patient: Less than 30
[2021-08-18] MEDS: SODIUM CHLORIDE 0.9% 1,000 ML IV SCH ×2 (00:57→11:21)
[2021-08-18] MEDS: DEXAMETHASONE SOD PHOSPHATE 4 MG/ML 1 ML VIAL IVP SCH ×4 (06:29→23:51)
[2021-08-18] MEDS: LEVOTHYROXINE SODIUM SUBLINGUAL SCH (06:29)
[2021-08-18] MEDS: SYMBICORT 160-4.5 MCG INHALER INHALATION SCH ×2 (08:22→22:51)
[2021-08-18] MEDS: IPRATROPIUM 0.5 MG/2.5 ML NEBU INHALATION SCH ×4 (08:22→22:52)
[2021-08-18] MEDS: TOPIRAMATE 100 MG TAB PO SCH ×2 (08:42→22:50)
[2021-08-18] MEDS: BUPRENORPHINE 300 MCG SUBLINGUAL SCH (08:42)
[2021-08-18] MEDS: traMADol 50 MG TAB PO PRN (08:43)
[2021-08-18] MEDS: AZTREONAM 2 GM in SODIUM CHLORIDE 0.9% 100 ML IVPB SCH ×4 (08:43→23:52)
[2021-08-18] MEDS: GABAPENTIN 300 MG CAP PO SCH ×3 (08:43→22:50)
[2021-08-18] MEDS: PRIMIDONE 50 MG TAB PO SCH ×3 (08:43→22:50)
[2021-08-18] MEDS: FERROUS SULFATE 325 MG TAB PO SCH (08:43)
[2021-08-18] MEDS: VANCOMYCIN 1,250 MG in SODIUM CHLORIDE 0.9% 250 ML IVPB SCH ×2 (08:46→23:50)
--- NOTE | 2021-08-18 09:00 | P.PN ---
Subjective Progress Note Date: 08/18/21 Principal diagnosis: L4 burst fracture Pt s/e. No acute events overnight. C/o pain today in her back. States she wants dilaudid. Has been refusing orals. We discussed no dilaudid until she takes her orals. She was up with PT yesterday. We will attempt up again today. Lala still in place. Drain in place. No new sx. Good strengths. Objective - Vital Signs Vital signs: Vital Signs Temp 98.2 F 08/18/21 04:10 Pulse 76 08/18/21 08:36 Resp 18 08/18/21 04:10 BP 93/61 08/18/21 04:10 Pulse Ox 95 08/18/21 04:10 Intake & Output 08/17/21 08/18/21 08/18/21 18:59 06:59 18:59 Intake Total 1050 Output Total 870 380 Balance 180 -380 Intake: Intake, IV Titration 1050 Amount Aztreonam 2 gm In Sodium 100 Chloride 0.9% 100 ml @ 33 .3 mls/hr IVPB Q8HR HETAL Rx#:[id number] Sodium Chloride 0.9% 1, 700 000 ml @ 100 mls/hr IV . Q10H [facility]AL Rx#:[id number] Vancomycin 1,250 mg In 250 Sodium Chloride 0.9% 250 ml @ 125 mls/hr IVPB Q12H H[facility]AL Rx#:[id number] Output: Drainage 220 80 Right Lower 220 80 Urine 650 300 Other: Voiding Method Indwelling Catheter Indwelling Catheter - Exam Patient is alert and oriented 3 appears well-nourished well-hydrated is in no acute distress. They does not appear septic. Mild tenderness to palpation around the incision site There is no edema or ballottement sign. Lower extremities with 4+ out of 5 strength in all major muscle groups improvement in the right lower extremity Upper extremities show 5/5 strength in all major muscle groups. There is FROM that is painless of the b/l UE and LE in all major joints. They are intact to light touch sensation in L2 to S1 nerve distribution. Patient has palpable dorsalis pedis was posterior tibial pulses. Compartments are soft and compressible. Patient shows a negative Homans, Jorgensen's, negative Babinski's negative clonus bilaterally. negative straight leg raise bilaterally. No tensioning signs. Cranial nerves II through XII are grossly intact. Overall alignment is well-maintained in the sagittal coronal planes. Incision is clean dry and intact Drain has about 45 mL in and had about 80 mL overnight - Labs CBC & Chem 7: 08/17/21 06:02 08/17/21 06:02 Labs: Abnormal Lab Results - Last 24 Hours (Table) 08/17/21 Range/Units 06:02 Iron 19 L (50-170) ug/dL TIBC 202 L (228-460) ug/dL % Saturation 9.38 L (12.00-45.00) Transferrin 144.0 L (204.0-354.0) mg/dL Ferritin 476.0 H (10.0-291.0) ng/mL Microbiology - Last 24 Hours (Table) 08/16/21 18:24 Gram Stain - Preliminary Other - Other Wound Culture - Preliminary 08/16/21 18:24 Gram Stain - Preliminary Other - Other Wound Culture - Preliminary 08/15/21 15:21 Blood Culture - Preliminary Blood No Growth after 48 hours Assessment and Plan Assessment: 66-year-old female postoperative day 2 L2 to S1 stabilization for L4 burst fracture with decompression L2 to L5 opioid abuse hx Complex medical patient Plan: -Appreciate client support consultant and team management. -Activity: Ambulate QID, OOB all meals, up and about, limit lifting bending twisting to less than 5 lbs. Use walker or cane if needed for stability. -Daily PT/OT, increase ambulation strength and balance. -We will order an LSO for extra support on the patient however she does not need this to do therapy at this time -Pain control: Adequate at this time -Meds: reviewed -GI ppx: senna, Miralax -DC lala when up and about, bedside commode if needed -DVT PPX: OK to restart Heparin tonight -Hygiene: Shower today. Maintain dressing clean and dry. Meticulous cleaning after BMs away from incision site -Drains: Maintain for now. Record output -Encourage IS 10x/hr -Dispo: 08/18: We will see how she does today with mobilization and speak with the family about their wishes. She states today that she does not want the second stage of the procedure. We will continue to discuss with her and her family the best options for the patient. 08/17: At this time we will plan on a second stage procedure on 08/20/2021 for completion of the corpectomy of L4 with cage placement. This is discussed with the patient and medical management. I discussed with this her family as well last night and they are on board with that as long she is stable to return to the OR and I agree. We will continue to monitor her vitals as well as her labs if she dips we will give her another unit of blood however due to the shortage we will be very conservative with this. She at this point is doing very well with her vitals stable no lightheadedness no other symptoms of anemia. She is doing well at this time.
[2021-08-18 10:57] LABS: ALT 27 U/L (4-34); AST 50 U/L (14-36); African American GFR (CKD) >90 (>60 ml/min/1.73 sqM); Albumin 3.1 g/dL (3.5-5.0); Alkaline Phosphatase 45 U/L (38-126); Anion Gap 6 mmol/L; Blood Urea Nitrogen 15 mg/dL (7-17); Calcium 7.2 mg/dL (8.4-10.2); Carbon Dioxide 23 mmol/L (22-30); Chloride 107 mmol/L (98-107); Glucose 125 mg/dL (74-99); Non-African American GFR(CKD) 89 (>60 ml/min/1.73 sqM); Potassium 3.9 mmol/L (3.5-5.1); Sodium 136 mmol/L (137-145); Total Bilirubin 0.4 mg/dL (0.2-1.3); Total Protein 5.4 g/dL (6.3-8.2)
[2021-08-18] MEDS: oxyCODONE-APAP 7.5-325MG 1 EACH TAB PO PRN ×2 (11:12→22:51)
[2021-08-18 11:18] LABS: Anisocytosis Slight; HCT 25.9 % (34.0-46.0); HGB 8.1 gm/dL (11.4-16.0); Hypochromasia Moderate; MCH 30.5 pg (25.0-35.0); MCHC 31.1 g/dL (31.0-37.0); MCV 97.8 fL (80.0-100.0); Macrocytosis Slight; Mean Platelet Volume 9.5; Platelet Count 184 k/uL (150-450); RBC 2.64 m/uL (3.80-5.40); RDW 16.4 % (11.5-15.5)
--- NOTE | 2021-08-18 12:06 | XR ---
EXAMINATION TYPE: XR chest 1V portable DATE OF EXAM: 08/18/2021 COMPARISON: Chest x-ray 08/14/2021 HISTORY: Postop leukocytosis TECHNIQUE: Single frontal view of the chest is obtained. FINDINGS: Lung volumes are low. Loops of colon within the abdomen show prominent appearance. Surgi eliza siobhan are present in the midline. Technique is apical lordotic and rotated. Heart is somewhat o bscured by elevated hemidiaphragms. Suspect there are basilar atelectatic changes. No pneumothorax. V ertebroplasty changes noted in the T12 vertebral body. IMPRESSION: Probable basilar atelectasis, expiratory rotated exam. Follow-up PA and lateral chest x- ray may be of benefit. Postop changes.
[2021-08-18] MEDS: SODIUM FERRIC GLUCONAT-SUCROSE 125 MG in SODIUM CHLORIDE 0.9% 100 ML IVPB SCH (14:06)
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
[2021-08-18] MEDS: ATORVASTATIN 20 MG TAB PO SCH (22:49)
[2021-08-18] MEDS: MELATONIN 3 MG TABLET PO PRN (22:49)
[2021-08-18] MEDS: DULoxetine HCL 30 MG CAPSULE.DR PO SCH (22:49)
[2021-08-18] MEDS: MIRTAZAPINE 15 MG TAB PO SCH (22:51)
[2021-08-18] MEDS: MONTELUKAST 10 MG TAB PO SCH (22:51)
[2021-08-19] MEDS: BUPRENORPHINE 300 MCG SUBLINGUAL SCH ×3 (00:07→21:32)
[2021-08-19] MEDS: DEXAMETHASONE SOD PHOSPHATE 4 MG/ML 1 ML VIAL IVP SCH ×4 (06:38→23:48)
[2021-08-19] MEDS: LEVOTHYROXINE SODIUM SUBLINGUAL SCH (06:38)
[2021-08-19] MEDS ORDERED: VANCOMYCIN TROUGH DUE 1 EACH MISC MISCELLANE ONE (07:00)
[2021-08-19 07:28] LABS: Anisocytosis Slight; HCT 22.4 % (34.0-46.0); HGB 7.1 gm/dL (11.4-16.0); Hypochromasia Moderate; MCH 30.9 pg (25.0-35.0); MCHC 31.8 g/dL (31.0-37.0); MCV 97.2 fL (80.0-100.0); Macrocytosis Slight; Mean Platelet Volume 9.3; Platelet Count 181 k/uL (150-450); RDW 16.7 % (11.5-15.5)
[2021-08-19] MEDS: IPRATROPIUM 0.5 MG/2.5 ML NEBU INHALATION SCH ×4 (07:39→20:52)
[2021-08-19] MEDS: SYMBICORT 160-4.5 MCG INHALER INHALATION SCH ×2 (07:39→20:52)
[2021-08-19 07:49] LABS: ALT 33 U/L (4-34); AST 47 U/L (14-36); African American GFR (CKD) >90 (>60 ml/min/1.73 sqM); Albumin 2.8 g/dL (3.5-5.0); Alkaline Phosphatase 53 U/L (38-126); Anion Gap 5 mmol/L; Blood Urea Nitrogen 10 mg/dL (7-17); Calcium 7.6 mg/dL (8.4-10.2); Carbon Dioxide 24 mmol/L (22-30); Chloride 107 mmol/L (98-107); Glucose 113 mg/dL (74-99); Non-African American GFR(CKD) >90 (>60 ml/min/1.73 sqM); Potassium 3.6 mmol/L (3.5-5.1); Sodium 136 mmol/L (137-145); Total Bilirubin 0.3 mg/dL (0.2-1.3); Total Protein 5.2 g/dL (6.3-8.2)
[2021-08-19 08:02] LABS: WBC 65.3 k/uL (3.8-10.6)
[2021-08-19] MEDS: oxyCODONE-APAP 7.5-325MG 1 EACH TAB PO PRN ×3 (08:22→23:48)
[2021-08-19] MEDS: TOPIRAMATE 100 MG TAB PO SCH ×2 (08:23→20:52)
[2021-08-19] MEDS: FERROUS SULFATE 325 MG TAB PO SCH (08:24)
[2021-08-19] MEDS: SULFAMETHOX-TMP 800-160MG 1 EACH TAB PO SCH (08:24)
[2021-08-19] MEDS: AZTREONAM 2 GM in SODIUM CHLORIDE 0.9% 100 ML IVPB SCH ×3 (08:24→23:48)
[2021-08-19] MEDS: GABAPENTIN 300 MG CAP PO SCH ×3 (08:24→20:53)
[2021-08-19] MEDS: PRIMIDONE 50 MG TAB PO SCH ×3 (08:24→20:52)
[2021-08-19] MEDS: VANCOMYCIN 1,250 MG in SODIUM CHLORIDE 0.9% 250 ML IVPB SCH ×2 (09:04→20:53)
--- NOTE | 2021-08-19 10:49 | P.PN ---
Progress Note - Text Progress Note Date: 08/19/21 Spoke with daughter over the phone regarding pts status and plan. At this time, we discussed postponing the second stage of the procedure due to the status of her mother (the pt) as well as the surrounding social factors regarding her medical status, medical hx and recovery potential. We discussed that this is acceptable at this time and we can revisit the second stage at a later date if needed. I do not feel that the vertebral body or surrounding area showed any infective process intraoperatively, but that definitively would be cx as well as the second stage and she understood. She has spoken with her sisters as well and at this they would like to postpone the second stage. We will continue to monitor patient in the hospital at this time. We will push for more ambulation, continued PT/OT daily, OOB all meals and increased activity to aid in her recovery.
[2021-08-19] MEDS: SODIUM FERRIC GLUCONAT-SUCROSE 125 MG in SODIUM CHLORIDE 0.9% 100 ML IVPB SCH (11:26)
--- NOTE | 2021-08-19 13:30 | P.PN ---
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 Patient states this began approximately one week ago shortly after receiving her booster Moderna Vaccination. In the emergency department she underwent a CT head revealing no acute intercranial abnormality. Her th WBC count was 23.2, chronicially elevated liver enzymes, and elevated carbon dioxide of 34. X-ray of pelvis showed posttraumatic changes to the pubic rami and lumbar spine with reduced bone mineralization, multiple phleboliths are present within the pelvis, no acute fracture or dislocation reported. X-ray lumbar spine revealing an osteoporotic compression fracture of L4 with retropulsed superior endplate suspected. Neurology and orthospine surgery were consulted. MRI lumbar spine revealing compression fracture of L4 with moderately severe spinal stenosis related to posterior mild fragment extension as well as hypertrophic facet arthropathy as well as old T12 compression fracture unchanged. MRI cervial and thoarsic showed no acute pathology. Surgery was recommended by orthospine she underwent L2-S1 stabilization on 08/16 without any complications. She did have some acute blood loss anemia and required 1 unit pRBC intraop. She was found to have severe Fe deficiency and was stated on IV iron. Patient seen and examined at bedside. Pain is well controlled but doesn't think she'll be able to tolerate lower dose of percocet. + BM yesterday small adn hard. + light headed, no chest pain, no shortness of breath. General: non toxic, no distress, appears older than stated age Derm: Appears pale, warm, dry, Head: atraumatic, normocephalic, symmetric Eyes: EOMI, no lid lag, anicteric sclera Mouth: no lip lesion, mucus membranes moist Cardiovascular: S1S2 reg, no murmur, positive posterior tibial pulse bilateral, Lungs: Course bs bilateral, no rhonchi, no rales , no accessory muscle use Abdominal: soft, nontender to palpation, no guarding, no appreciable organomegaly Ext: no gross muscle atrophy, no edema, no contractures Neuro: CN II-XI grossly intact, Muscle strength 4/5 in b/l UE, 4/5 in L LE, and 3/5 in R LE Psych: Alert, oriented, appropriate affect Assessment and Plan: L4 compression/burst fracture with right lower extremity weakness status post L2 to S1 stabilization on 08/16 with repeat surgery planned on 08/20. Gait instability, and recurrent falls -Orthospine surgery recs - decadron -Continue Neuro checks -Pain control -Fall precautions -PT/OT Acute blood loss anemia with severe iron deficiency anemia - 1 unit pRBC today, D/W pathology and will release for today, one more on hold for surgery tomorrow -Status post 1 unit of packed red blood cells in the OR -Discussed with Dr. Mclaughlin's an inpatient and had increased bleeding during operation - follow CBC -IV iron 3 days Acute pain with hx of opiate use disorder - recommend continuing bupe and treating with full opiate agonist and have added Percocet which they will use and only use Dilaudid she is getting up and moving. - Await pain management recs Leukocytosis of undetermined etiology History of common variable immunodeficiency -Suspect component of being reactive in addition to adding Decadron -Pro-calcitonin negative pre-op -Chest x-ray without signs of infection and UA negative - follow CBC - ID recs appreciated: Vanco, azacatm, bactrim - ESR normal COPD with chronic hypoxic/hypercapnic respiratory failure Obstructive sleep apnea CPAP dependent Chronic diaphragmatic paralysis - maintain SPO2 equal to or greater than 92%, Home O2 4L -Duonebs as needed for SOB and/or wheezing -Incentive Spirometry -Steroids: once off decadron will need home prednisone resumed -Continuation of daily medication regimen including Singulair and Symbicort. -Pulmonology recs appreciated: Hypothyroidism -TSH of 91.300 and free T4 of less than 0.100. -Continue Levothyroxine and T3 negative -Endocrinology upon discharge Transaminitis - chronic - at baseline - conitnue to follow Hypokalemia,resolved DVT prophylaxis: SCDs Discussed with: Nursing, Dr Levi Anticipated discharge: undetermined Anticipated discharge place: [facility] A total of 35 minutes was spent on the care of this complex patient more than 50% of the time was spent in counseling and care coordination. Active Medications Generic Name Dose Route Start Last Admin Trade Name Freq PRN Reason Stop Dose Admin Acetaminophen 650 mg 08/14/21 14:25 08/14/21 16:51 Acetaminophen Tab 325 Mg Tab PO 650 mg Q6HR PRN Administration Mild Pain or Fever > 100.5 Albuterol Sulfate 2.5 mg 08/14/21 15:05 Albuterol Nebulized 2.5 Mg/3 Ml INHALATION RT-QID PRN Shortness Of Breath Atorvastatin Calcium 20 mg 08/14/21 21:00 08/18/21 22:49 Atorvastatin 20 Mg Tab PO 20 mg HS [facility] Administration Budesonide/Formoterol Fumarate 2 puff 08/14/21 20:00 08/19/21 07:39 Symbicort 160-4.5 Mcg Inhaler INHALATION 2 puff RT-BID [facility] Administration Dexamethasone Sodium Phosphate 4 mg 08/16/21 12:00 08/19/21 11:29 Dexamethasone Sod Phosphate 4 Mg/Ml 1 Ml Vial IVP 4 mg Q6HR [facility] Administration Duloxetine HCl 30 mg 08/14/21 21:00 08/18/21 22:49 Duloxetine Hcl 30 Mg Capsule.Dr PO 30 mg HS [facility] Administration Ferrous Sulfate 325 mg 08/15/21 09:00 08/19/21 08:24 Ferrous Sulfate 325 Mg Tab PO 325 mg DAILY [facility] Administration Gabapentin 300 mg 08/16/21 22:00 08/19/21 08:24 Gabapentin 300 Mg Cap PO 300 mg TID [facility] Administration Hydromorphone HCl 1 mg 08/15/21 14:44 08/17/21 23:43 Hydromorphone 1 Mg/Ml 1 Ml Syringe IVP 1 mg Q3H PRN Administration Severe Pain Sodium Chloride 1,000 mls @ 100 mls/hr 08/14/21 16:00 08/18/21 11:21 Saline 0.9% IV Not Given .Q10H [facility] Vancomycin HCl 1,250 mg/ 250 mls @ 125 mls/hr 08/17/21 08:00 08/19/21 09:04 Sodium Chloride IVPB 125 mls/hr Q12H [facility] Administration Aztreonam 2 gm/ Sodium 100 mls @ 33.3 mls/hr 08/17/21 16:00 08/19/21 08:24 Chloride IVPB 33.3 mls/hr Q8HR [facility] Administration Protocol Ferric Sodium Gluconate 125 mg 110 mls @ 100 mls/hr 08/18/21 12:00 08/19/21 11:26 / Sodium Chloride IVPB 08/20/21 10:05 100 mls/hr DAILY [facility] Administration Ipratropium [place] 0.5 mg 08/15/21 08:00 08/19/21 11:13 Ipratropium 0.5 Mg/2.5 Ml Nebu INHALATION 0.5 mg RT-QID [facility] Administration Melatonin 3 mg 08/14/21 15:10 08/18/21 22:49 Melatonin 3 Mg Tablet PO 3 mg HS PRN Administration Insomnia Mirtazapine 15 mg 08/14/21 21:00 08/18/21 22:51 Mirtazapine 15 Mg Tab PO 15 mg HS [facility] Administration Montelukast Sodium 10 mg 08/14/21 21:00 08/18/21 22:51 Montelukast 10 Mg Tab PO 10 mg HS [facility] Administration Naloxone HCl 0.2 mg 08/14/21 14:25 Naloxone 0.4 Mg/Ml 1 Ml Vial IV Q2M PRN Opioid Reversal Levothyroxine Sodium 200 mcg 08/15/21 07:30 08/19/21 06:38 [Tirosint-Carly] 200 SUBLINGUAL 200 mcg Mcg/Ml Solution [id number] [facility]AL Administration Buprenorphine [ 300 mcg 08/15/21 21:00 08/19/21 09:51 [place]] 300 Mcg SUBLINGUAL 300 mcg Film BID [facility] Administration Oxycodone/Acetaminophen 1 each 08/18/21 10:41 08/19/21 08:22 Oxycodone-Apap 7.5-325mg 1 Each Tab PO 1 each Q6HR PRN Administration Pain Primidone 25 mg 08/14/21 16:00 08/19/21 08:24 Primidone 50 Mg Tab PO 25 mg TID [facility] Administration Ropinirole HCl 2 mg 08/14/21 21:00 08/18/21 22:49 Ropinirole Hcl 1 Mg Tab PO 2 mg HS [facility] Administration Topiramate 100 mg 08/14/21 21:00 08/19/21 08:23 Topiramate 100 Mg Tab PO 100 mg BID [facility] Administration Trimethoprim/Sulfamethoxazole 1 each 08/16/21 09:00 08/19/21 08:24 Sulfamethox-Tmp 800-160mg 1 Each Tab PO 1 each MOWEFR [facility] Administration Objective - Vital Signs Vital signs: Vital Signs Temp 98.7 F 08/19/21 11:25 Pulse 76 08/19/21 11:25 Resp 16 08/19/21 11:25 BP 119/66 08/19/21 11:25 Pulse Ox 96 08/19/21 11:25 Intake & Output 08/18/21 08/19/21 08/19/21 18:59 06:59 18:59 Intake Total 1268 360 Output Total 510 2135 Balance 758 -2135 360 Intake: Intake, IV Titration 1150 Amount Aztreonam 2 gm In Sodium 200 Chloride 0.9% 100 ml @ 33 .3 mls/hr IVPB Q8HR [facility] Rx#:[id number] Sodium Chloride 0.9% 1, 600 000 ml @ 100 mls/hr IV . Q10H [facility] Rx#:[id number] Sodium Ferric Gluconat- 100 Sucrose 125 mg In Sodium Chloride 0.9% 100 ml @ 100 mls/hr IVPB DAILY [facility] Rx#:[id number] Vancomycin 1,250 mg In 250 Sodium Chloride 0.9% 250 ml @ 125 mls/hr IVPB Q12H [facility] Rx#:[id number] Oral 118 360 Output: Drainage 60 160 Right Lower 60 160 Urine 450 1975 Other: Voiding Method Indwelling Catheter Indwelling Catheter Indwelling Catheter # Voids 2 - Labs CBC & Chem 7: 08/19/21 06:44 08/19/21 06:44 Labs: Abnormal Lab Results - Last 24 Hours (Table) 08/19/21 08/19/21 08/19/21 Range/Units 06:44 06:44 09:14 WBC 65.3 H* (3.8-10.6) k/uL RBC 2.30 L (3.80-5.40) m/uL Hgb 7.1 L (11.4-16.0) gm/dL Hct 22.4 L (34.0-46.0) % RDW 16.7 H (11.5-15.5) % Sodium 136 L (137-145) mmol/L Glucose 113 H (74-99) mg/dL Calcium 7.6 L (8.4-10.2) mg/dL AST 47 H (14-36) U/L Total Protein 5.2 L (6.3-8.2) g/dL Albumin 2.8 L (3.5-5.0) g/dL Crossmatch See Detail Microbiology - Last 24 Hours (Table) 08/16/21 18:24 Gram Stain - Final Other - Other Wound Culture - Final 08/16/21 18:24 Gram Stain - Final Other - Other Wound Culture - Final 08/17/21 17:54 Blood Culture - Preliminary Blood No Growth after 24 hours 08/16/21 18:24 Anaerobic Culture - Preliminary Other - Other 08/16/21 18:24 Anaerobic Culture - Preliminary Other - Other 08/15/21 15:21 Blood Culture - Preliminary Blood No Growth after 72 hours
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
[2021-08-19] MEDS: MIRTAZAPINE 15 MG TAB PO SCH (20:52)
[2021-08-19] MEDS: MONTELUKAST 10 MG TAB PO SCH (20:52)
[2021-08-19] MEDS: ATORVASTATIN 20 MG TAB PO SCH (20:52)
[2021-08-19] MEDS: DULoxetine HCL 30 MG CAPSULE.DR PO SCH (20:53)
[2021-08-19] MEDS: MELATONIN 3 MG TABLET PO PRN (20:55)
--- NOTE | 2021-08-19 21:53 | P.PN ---
Subjective Progress Note Date: 08/18/21 Principal diagnosis: L4 burst fracture and question of Osteomyelitis Patient is 66-year-old female presented to hospital with low back pain and has been diagnosed with the L4 burst fracture in this patient who is status post L2 to S1 stabilization with decompression L2 to L5 that was completed on 08/16/2021. On today's evaluation that is 08/18/2021, the patient remains to be afebrile, the patient lower back pain is currently controlled, the patient denies having any chest pain shortness of breath or cough no nausea no vomiting no abdominal pain no diarrhea, feeling slightly better Objective - Vital Signs Vital signs: Vital Signs Temp 98.3 F 08/18/21 12:05 Pulse 80 08/18/21 16:28 Resp 20 08/18/21 12:05 BP 104/62 08/18/21 12:05 Pulse Ox 95 08/18/21 12:05 Intake & Output 08/17/21 08/18/21 08/18/21 18:59 06:59 18:59 Intake Total 1050 Output Total 870 380 450 Balance 180 -380 -450 Intake: Intake, IV Titration 1050 Amount Aztreonam 2 gm In Sodium 100 Chloride 0.9% 100 ml @ 33 .3 mls/hr IVPB Q8HR [facility] Rx#:[id number] Sodium Chloride 0.9% 1, 700 000 ml @ 100 mls/hr IV . Q10H [facility] Rx#:[id number] Vancomycin 1,250 mg In 250 Sodium Chloride 0.9% 250 ml @ 125 mls/hr IVPB Q12H [facility] Rx#:[id number] Output: Drainage 220 80 Right Lower 220 80 Urine 650 300 450 Other: Voiding Method Indwelling Catheter Indwelling Catheter Indwelling Catheter - Exam GENERAL DESCRIPTION:[ Patient is awake and alert in no distress] HEENT: [Oral mucosa is dry and no pharyngeal erythema] RESPIRATORY SYSTEM: [Unlabored breathing decreased breath sounds at the base CARDIA VASCULAR SYSTEM: [S1-S2 regular rate and rhythm no murmur] GI: [Abdominal soft there's no tenderness no organomegaly] EXTREMITIES: [No edema feet] - Labs CBC & Chem 7: 08/19/21 06:44 08/19/21 06:44 Labs: Abnormal Lab Results - Last 24 Hours (Table) 08/17/21 08/18/21 08/18/21 Range/Units 06:02 09:56 09:56 WBC 58.0 H* (3.8-10.6) k/uL RBC 2.64 L (3.80-5.40) m/uL Hgb 8.1 L (11.4-16.0) gm/dL Hct 25.9 L (34.0-46.0) % RDW 16.4 H (11.5-15.5) % Sodium 136 L (137-145) mmol/L Glucose 125 H (74-99) mg/dL Calcium 7.2 L (8.4-10.2) mg/dL Iron 19 L (50-170) ug/dL TIBC 202 L (228-460) ug/dL % Saturation 9.38 L (12.00-45.00) Transferrin 144.0 L (204.0-354.0) mg/dL Ferritin 476.0 H (10.0-291.0) ng/mL AST 50 H (14-36) U/L Total Protein 5.4 L (6.3-8.2) g/dL Albumin 3.1 L (3.5-5.0) g/dL Microbiology - Last 24 Hours (Table) 08/16/21 18:24 Gram Stain - Preliminary Other - Other Wound Culture - Preliminary 08/16/21 18:24 Gram Stain - Preliminary Other - Other Wound Culture - Preliminary 08/15/21 15:21 Blood Culture - Preliminary Blood No Growth after 48 hours Assessment and Plan (1) Leukocytosis Current Visit: Yes Status: Acute Code(s): D72.829 - ELEVATED WHITE BLOOD CELL COUNT, UNSPECIFIED SNOMED Code(s): 985820668 (2) Compression fracture of L4 vertebra Current Visit: Yes Status: Acute Code(s): S32.040A - WEDGE COMPRESSION FRACTURE OF FOURTH LUMBAR VERTEBRA, INIT SNOMED Code(s): 420338697 Plan: 1patient with compression fracture of the L4 vertebral with concern for possible Osteomyelitis patient is status post surgery and deep cultures which are currently pending patient's empirically covered with vancomycin and Azactam 2-patient with leukocytosis which could be more likely to steroids , patient also have cephalosporin ALLERGY and is currently covered with vancomycin and Azactam and waiting for the culture finalized Time with Patient: Less than 30
--- NOTE | 2021-08-19 21:55 | P.PN ---
Subjective Progress Note Date: 08/19/21 Principal diagnosis: L4 burst fracture and question of Osteomyelitis Patient is 66-year-old female presented to hospital with low back pain and has been diagnosed with the L4 burst fracture in this patient who is status post L2 to S1 stabilization with decompression L2 to L5 that was completed on 08/16/2021. On today's evaluation that is 08/19/2021, the patient continues to be afebrile, the patient lower back pain is currently controlled with the pain medication, th e patient denies having any chest pain shortness of breath or cough , the patient denies nausea no vomiting no abdominal pain no diarrhea, Objective - Vital Signs Vital signs: Vital Signs Temp 98.7 F 08/19/21 19:40 Pulse 72 08/19/21 21:08 Resp 16 08/19/21 19:40 BP 127/80 08/19/21 19:40 Pulse Ox 95 08/19/21 19:40 Intake & Output 08/19/21 08/19/21 08/20/21 06:59 18:59 06:59 Intake Total 670 Output Total 2134 1593 Balance -2135 -923 Intake: Oral 360 Blood Product 310 Rc As-1 Unit 310 [id number] Output: Drainage 160 68 Right Lower 160 68 Urine 1975 1525 Other: Voiding Method Indwelling Catheter Indwelling Catheter # Voids 2 - Exam GENERAL DESCRIPTION:[ Patient is awake and alert in no distress] HEENT: [Oral mucosa is dry and no pharyngeal erythema] RESPIRATORY SYSTEM: [Unlabored breathing decreased breath sounds at the base CARDIA VASCULAR SYSTEM: [S1-S2 regular rate and rhythm no murmur] GI: [Abdominal soft there's no tenderness no organomegaly] EXTREMITIES: [No edema feet] - Labs CBC & Chem 7: 08/19/21 06:44 08/19/21 06:44 Labs: Abnormal Lab Results - Last 24 Hours (Table) 08/15/21 08/19/21 08/19/21 Range/Units 10:25 06:44 06:44 WBC 65.3 H* (3.8-10.6) k/uL RBC 2.30 L (3.80-5.40) m/uL Hgb 7.1 L (11.4-16.0) gm/dL Hct 22.4 L (34.0-46.0) % RDW 16.7 H (11.5-15.5) % Sodium 136 L (137-145) mmol/L Glucose 113 H (74-99) mg/dL Calcium 7.6 L (8.4-10.2) mg/dL AST 47 H (14-36) U/L Total Protein 5.2 L (6.3-8.2) g/dL Albumin 2.8 L (3.5-5.0) g/dL Crossmatch See Detail 08/19/21 Range/Units 09:14 WBC (3.8-10.6) k/uL RBC (3.80-5.40) m/uL Hgb (11.4-16.0) gm/dL Hct (34.0-46.0) % RDW (11.5-15.5) % Sodium (137-145) mmol/L Glucose (74-99) mg/dL Calcium (8.4-10.2) mg/dL AST (14-36) U/L Total Protein (6.3-8.2) g/dL Albumin (3.5-5.0) g/dL Crossmatch See Detail Microbiology - Last 24 Hours (Table) 08/17/21 17:54 Blood Culture - Preliminary Blood No Growth after 48 hours 08/15/21 15:21 Blood Culture - Preliminary Blood No Growth after 96 hours 08/16/21 18:24 Gram Stain - Final Other - Other Wound Culture - Final 08/16/21 18:24 Gram Stain - Final Other - Other Wound Culture - Final 08/16/21 18:24 Anaerobic Culture - Preliminary Other - Other 08/16/21 18:24 Anaerobic Culture - Preliminary Other - Other Assessment and Plan (1) Leukocytosis Current Visit: Yes Status: Acute Code(s): D72.829 - ELEVATED WHITE BLOOD CELL COUNT, UNSPECIFIED SNOMED Code(s): 235346851 (2) Compression fracture of L4 vertebra Current Visit: Yes Status: Acute Code(s): S32.040A - WEDGE COMPRESSION FRACTURE OF FOURTH LUMBAR VERTEBRA, INIT SNOMED Code(s): 227787084 Plan: 1patient with compression fracture of the L4 vertebral with concern for possible Osteomyelitis patient is status post surgery and deep cultures which are so far negative, patient's empirically covered with vancomycin and Azactam 2-patient with leukocytosis which could be more likely to steroids as the patient does not look toxic and is not running any fever, patient also have cephalosporin ALLERGY and is currently covered with vancomycin and Azactam and waiting for the culture finalized Time with Patient: Less than 30
[2021-08-19] MEDS: SODIUM CHLORIDE 0.9% 1,000 ML IV SCH ×2 (23:12→23:13)
[2021-08-20] MEDS: DEXAMETHASONE SOD PHOSPHATE 4 MG/ML 1 ML VIAL IVP SCH ×4 (06:34→18:47)
[2021-08-20] MEDS: LEVOTHYROXINE SODIUM SUBLINGUAL SCH (06:34)
[2021-08-20] MEDS: oxyCODONE-APAP 7.5-325MG 1 EACH TAB PO PRN ×2 (06:35→13:33)
[2021-08-20] MEDS: SYMBICORT 160-4.5 MCG INHALER INHALATION SCH ×2 (07:25→20:54)
[2021-08-20] MEDS: IPRATROPIUM 0.5 MG/2.5 ML NEBU INHALATION SCH ×4 (07:25→20:55)
--- NOTE | 2021-08-20 07:40 | P.PN ---
Subjective Progress Note Date: 08/20/21 Principal diagnosis: L4 burst fracture Pt s/e this am. She is doing well. She was up yesterday with PT and to her chair. FFoley still in place. Drain in place. No new sx at this time. Objective - Vital Signs Vital signs: Vital Signs Temp 97.9 F 08/20/21 05:00 Pulse 76 08/20/21 07:33 Resp 18 08/20/21 05:00 BP 122/73 08/20/21 05:00 Pulse Ox 96 08/20/21 05:00 Intake & Output 08/19/21 08/20/21 08/20/21 18:59 06:59 18:59 Intake Total 670 Output Total 1593 2135 Balance -923 -2135 Intake: Oral 360 Blood Product 310 Rc As-1 Unit 310 [id number] Output: Drainage 68 35 Right Lower 68 35 Urine 1525 2100 Other: Voiding Method Indwelling Catheter - Exam Patient is alert and oriented 3 appears well-nourished well-hydrated is in no acute distress. They does not appear septic. Mild tenderness to palpation around the incision site There is no edema or ballottement sign. Lower extremities with 4+ out of 5 strength in all major muscle groups improve ment in the right lower extremity Upper extremities show 5/5 strength in all major muscle groups. There is FROM that is painless of the b/l UE and LE in all major joints. They are intact to light touch sensation in L2 to S1 nerve distribution. Patient has palpable dorsalis pedis was posterior tibial pulses. Compartments are soft and compressible. Patient shows a negative Homans, Jorgensen's, negative Babinski's negative clonus bilaterally. negative straight leg raise bilaterally. No tensioning signs. Cranial nerves II through XII are grossly intact. Overall alignment is well-maintained in the sagittal coronal planes. Incision is clean dry and intact Drain has about 20 cc we will pull today. - Labs CBC & Chem 7: 08/19/21 06:44 08/19/21 06:44 Labs: Abnormal Lab Results - Last 24 Hours (Table) 08/15/21 08/15/21 08/19/21 Range/Units 05:37 10:25 06:44 WBC 65.3 H* (3.8-10.6) k/uL RBC 2.30 L (3.80-5.40) m/uL Hgb 7.1 L (11.4-16.0) gm/dL Hct 22.4 L (34.0-46.0) % RDW 16.7 H (11.5-15.5) % Sodium (137-145) mmol/L Glucose (74-99) mg/dL Calcium (8.4-10.2) mg/dL AST (14-36) U/L C-Reactive Protein 0.90 H (0.00-0.80) mg/dL Total Protein (6.3-8.2) g/dL Albumin (3.5-5.0) g/dL Crossmatch See Detail 08/19/21 08/19/21 Range/Units 06:44 09:14 WBC (3.8-10.6) k/uL RBC (3.80-5.40) m/uL Hgb (11.4-16.0) gm/dL Hct (34.0-46.0) % RDW (11.5-15.5) % Sodium 136 L (137-145) mmol/L Glucose 113 H (74-99) mg/dL Calcium 7.6 L (8.4-10.2) mg/dL AST 47 H (14-36) U/L C-Reactive Protein (0.00-0.80) mg/dL Total Protein 5.2 L (6.3-8.2) g/dL Albumin 2.8 L (3.5-5.0) g/dL Crossmatch See Detail Microbiology - Last 24 Hours (Table) 08/17/21 17:54 Blood Culture - Preliminary Blood No Growth after 48 hours 08/15/21 15:21 Blood Culture - Preliminary Blood No Growth after 96 hours Assessment and Plan Assessment: 66-year-old female postoperative day 4 L2 to S1 stabilization for L4 burst fracture with decompression L2 to L5 opioid abuse hx Complex medical patient Plan: -Appreciate entry level sales consultant and team management. -Activity: Ambulate QID, OOB all meals, up and about, limit lifting bending twisting to less than 5 lbs. Use walker or cane if needed for stability. -Daily PT/OT, increase ambulation strength and balance. -We will order an LSO for extra support on the patient however she does not need this to do therapy at this time -Pain control: Adequate at this time -Meds: reviewed -GI ppx: senna, Miralax -DC lala when up and about, bedside commode if needed -DVT PPX: OK to restart Heparin tonight -Hygiene: Shower today. Maintain dressing clean and dry. Meticulous cleaning after BMs away from incision site -Drains: DC today -Encourage IS 10x/hr -Dispo: Plan for SWATI when appropriate per treatment team. Discussed with pt and her daughters yesterday second stage at a later date when the patient is more stable and resuscitated. They agreed.
[2021-08-20 08:07] LABS: Anisocytosis Slight; HCT 29.7 % (34.0-46.0); Hypochromasia Moderate; MCH 30.4 pg (25.0-35.0); MCHC 31.1 g/dL (31.0-37.0); MCV 97.7 fL (80.0-100.0); Macrocytosis Slight; Mean Platelet Volume 8.8; Platelet Count 232 k/uL (150-450); Poikilocytosis Slight; RBC 3.03 m/uL (3.80-5.40); RDW 17.2 % (11.5-15.5)
[2021-08-20 08:24] LABS: ALT 37 U/L (4-34); AST 39 U/L (14-36); African American GFR (CKD) >90 (>60 ml/min/1.73 sqM); Albumin 3.2 g/dL (3.5-5.0); Alkaline Phosphatase 56 U/L (38-126); Anion Gap 5 mmol/L; Blood Urea Nitrogen 11 mg/dL (7-17); Calcium 8.4 mg/dL (8.4-10.2); Carbon Dioxide 24 mmol/L (22-30); Chloride 107 mmol/L (98-107); Glucose 124 mg/dL (74-99); Non-African American GFR(CKD) >90 (>60 ml/min/1.73 sqM); Potassium 4.3 mmol/L (3.5-5.1); Sodium 136 mmol/L (137-145); Total Bilirubin 0.3 mg/dL (0.2-1.3); Total Protein 5.6 g/dL (6.3-8.2)
[2021-08-20 08:26] LABS: WBC 70.6 k/uL (3.8-10.6)
[2021-08-20 08:28] LABS: HGB 9.2 gm/dL (11.4-16.0)
[2021-08-20 08:29] LABS: INR 0.9 (<1.2); Partial Thromboplastin Time 23.9 sec (22.0-30.0)
[2021-08-20] MEDS: VANCOMYCIN 1,250 MG in SODIUM CHLORIDE 0.9% 250 ML IVPB SCH ×2 (08:45→20:50)
[2021-08-20] MEDS: AZTREONAM 2 GM in SODIUM CHLORIDE 0.9% 100 ML IVPB SCH ×3 (08:45→23:53)
[2021-08-20] MEDS: PRIMIDONE 50 MG TAB PO SCH ×3 (08:46→21:07)
[2021-08-20] MEDS: GABAPENTIN 300 MG CAP PO SCH ×3 (08:46→21:07)
[2021-08-20] MEDS: FERROUS SULFATE 325 MG TAB PO SCH (08:46)
[2021-08-20] MEDS: TOPIRAMATE 100 MG TAB PO SCH ×2 (08:46→20:57)
[2021-08-20] MEDS: BUPRENORPHINE 300 MCG SUBLINGUAL SCH ×2 (11:45→21:03)
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
[2021-08-20 13:28] VITALS: BMI 24.2
[2021-08-20] MEDS: SODIUM FERRIC GLUCONAT-SUCROSE 125 MG in SODIUM CHLORIDE 0.9% 100 ML IVPB SCH (13:34)
--- NOTE | 2021-08-20 17:20 | P.PN ---
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 Patient states this began approximately one week ago shortly after receiving her booster Moderna Vaccination. In the emergency department she underwent a CT head revealing no acute intercranial abnormality. Her th WBC count was 23.2, chronicially elevated liver enzymes, and elevated carbon dioxide of 34. X-ray of pelvis showed posttraumatic changes to the pubic rami and lumbar spine with reduced bone mineralization, multiple phleboliths are present within the pelvis, no acute fracture or dislocation reported. X-ray lumbar spine revealing an osteoporotic compression fracture of L4 with retropulsed superior endplate suspected. Neurology and orthospine surgery were consulted. MRI lumbar spine revealing compression fracture of L4 with moderately severe spinal stenosis related to posterior mild fragment extension as well as hypertrophic facet arthropathy as well as old T12 compression fracture unchanged. MRI cervial and thoarsic showed no acute pathology. Surgery was recommended by orthospine she underwent L2-S1 stabilization on 08/16 without any complications. She did have some acute blood loss anemia and required 1 unit pRBC intraop. She was found to have severe Fe deficiency and was stated on IV iron. Family has elected to delay the second stage of her procedure until she is more stable. Patient seen and examined at bedside. Pain is okay today, no BM passing gas, no nausea, no vomiting. General: non toxic, no distress, appears older than stated age Derm: Appears pale, warm, dry, Head: atraumatic, normocephalic, symmetric Eyes: EOMI, no lid lag, anicteric sclera Mouth: no lip lesion, mucus membranes moist Cardiovascular: S1S2 reg, no murmur, positive posterior tibial pulse bilateral, Lungs: Course bs bilateral, no rhonchi, no rales , no accessory muscle use Abdominal: soft, nontender to palpation, no guarding, no appreciable organomegaly Ext: no gross muscle atrophy, no edema, no contractures Neuro: CN II-XI grossly intact, Muscle strength 4/5 in b/l UE, 4/5 in L LE, and 3/5 in R LE, drain in placed with sanguineous drainage. Psych: Alert, oriented, appropriate affect Assessment and Plan: L4 compression/burst fracture with right lower extremity weakness status post L2 to S1 stabilization on 08/16 with repeat surgery planned on 08/20. Gait instability, and recurrent falls -Orthospine surgery recs - decadron decreased -Continue Neuro checks -Pain control -Fall precautions -PT/OT Acute blood loss anemia with severe iron deficiency anemia - s/p 2 units - follow CBC - s/p IV iron 3 days Acute pain with hx of opiate use disorder - recommend continuing bupe and treating with full opiate agonist and decreased percocet on 08/20 and stopped dilaudid - Await pain management recs Constipation - miralax - increased movement Leukocytosis of undetermined etiology History of common variable immunodeficiency -Suspect component of being reactive in addition to adding Decadron -Pro-calcitonin negative pre-op -Chest x-ray without signs of infection and UA negative - follow CBC - ID recs appreciated: Vanco, azacatm, bactrim-- await final cultures before stopping ABX - ESR normal COPD with chronic hypoxic/hypercapnic respiratory failure Obstructive sleep apnea CPAP dependent Chronic diaphragmatic paralysis - maintain SPO2 equal to or greater than 92%, Home O2 4L -Duonebs as needed for SOB and/or wheezing -Incentive Spirometry -Steroids: once off decadron will need home prednisone resumed -Continuation of daily medication regimen including Singulair and Symbicort. -Pulmonology recs appreciated: Hypothyroidism -TSH of 91.300 and free T4 of less than 0.100. -Continue Levothyroxine and T3 negative -Endocrinology upon discharge Transaminitis - chronic - at baseline - continue to follow Hypokalemia,resolved DVT prophylaxis: SCDs Discussed with: Nursing, patient Anticipated discharge: undetermined Anticipated discharge place: SNF VS IPR VS LTACH A total of 35 minutes was spent on the care of this complex patient more than 50% of the time was spent in counseling and care coordination. Active Medications Acetaminophen (Acetaminophen Tab 325 Mg Tab) 650 mg PO Q6HR PRN PRN Reason: Mild Pain or Fever > 100.5 Last Admin: 08/14/21 16:51 Dose: 650 mg Documented by: Albuterol Sulfate (Albuterol Nebulized 2.5 Mg/3 Ml) 2.5 mg INHALATION RT-QID PRN PRN Reason: Shortness Of Breath Atorvastatin Calcium (Atorvastatin 20 Mg Tab) 20 mg PO HS [facility] Last Admin: 08/19/21 20:52 Dose: 20 mg Documented by: Budesonide/Formoterol Fumarate (Symbicort 160-4.5 Mcg Inhaler) 2 puff INHALATION RT-BID [facility] Last Admin: 08/20/21 07:25 Dose: 2 puff Documented by: Dexamethasone Sodium Phosphate (Dexamethasone Sod Phosphate 4 Mg/Ml 1 Ml Vial) 4 mg IVP Q6HR [facility] Last Admin: 08/20/21 16:30 Dose: 4 mg Documented by: Duloxetine HCl (Duloxetine Hcl 30 Mg Capsule.Dr) 30 mg PO HS [facility] Last Admin: 08/19/21 20:53 Dose: 30 mg Documented by: Ferrous Sulfate (Ferrous Sulfate 325 Mg Tab) 325 mg PO DAILY [facility] Last Admin: 08/20/21 08:46 Dose: 325 mg Documented by: Gabapentin (Gabapentin 300 Mg Cap) 300 mg PO TID [facility] Last Admin: 08/20/21 16:29 Dose: 300 mg Documented by: Hydromorphone HCl (Hydromorphone 1 Mg/Ml 1 Ml Syringe) 1 mg IVP Q3H PRN PRN Reason: Severe Pain Last Admin: 08/17/21 23:43 Dose: 1 mg Documented by: Vancomycin HCl 1,250 mg/ (Sodium Chloride) 250 mls @ 125 mls/hr IVPB Q12H [facility] Last Admin: 08/20/21 08:45 Dose: 125 mls/hr Documented by: Aztreonam 2 gm/ Sodium (Chloride) 100 mls @ 33.3 mls/hr IVPB Q8HR [facility]; Protocol Last Admin: 08/20/21 17:00 Dose: 33.3 mls/hr Documented by: Ipratropium [place] (Ipratropium 0.5 Mg/2.5 Ml Nebu) 0.5 mg INHALATION RT-QID [facility] Last Admin: 08/20/21 16:54 Dose: 0.5 mg Documented by: Melatonin (Melatonin 3 Mg Tablet) 3 mg PO HS PRN PRN Reason: Insomnia Last Admin: 08/19/21 20:55 Dose: 3 mg Documented by: Mirtazapine (Mirtazapine 15 Mg Tab) 15 mg PO HS [facility] Last Admin: 08/19/21 20:52 Dose: 15 mg Documented by: Montelukast Sodium (Montelukast 10 Mg Tab) 10 mg PO [facility] Last Admin: 08/19/21 20:52 Dose: 10 mg Documented by: Naloxone HCl (Naloxone 0.4 Mg/Ml 1 Ml Vial) 0.2 mg IV Q2M PRN PRN Reason: Opioid Reversal Levothyroxine Sodium [Tirosint-Carly] 200 Mcg/Ml Solution 200 mcg SUBLINGUAL AC- BRKFST [facility] Last Admin: 08/20/21 06:34 Dose: 200 mcg Documented by: Buprenorphine [ [place]] 300 Mcg Film 300 mcg SUBLINGUAL BID [facility] Last Admin: 08/20/21 11:45 Dose: 300 mcg Documented by: Oxycodone/Acetaminophen (Oxycodone-Apap 7.5-325mg 1 Each Tab) 1 each PO Q6HR PRN PRN Reason: Pain Last Admin: 08/20/21 13:33 Dose: 1 each Documented by: Primidone (Primidone 50 Mg Tab) 25 mg PO TID [facility] Last Admin: 08/20/21 16:30 Dose: 25 mg Documented by: Ropinirole HCl (Ropinirole Hcl 1 Mg Tab) 2 mg PO [facility] Last Admin: 08/19/21 20:52 Dose: 2 mg Documented by: Topiramate (Topiramate 100 Mg Tab) 100 mg PO BID [facility] Last Admin: 08/20/21 08:46 Dose: 100 mg Documented by: Trimethoprim/Sulfamethoxazole (Sulfamethox-Tmp 800-160mg 1 Each Tab) 1 each PO MOWEFR [facility] Last Admin: 08/19/21 08:24 Dose: 1 each Documented by: Objective - Vital Signs Vital signs: Vital Signs Temp 98.7 F 08/20/21 11:29 Pulse 74 08/20/21 16:54 Resp 16 08/20/21 11:29 BP 146/79 08/20/21 11:29 Pulse Ox 95 08/20/21 11:29 Intake & Output 08/19/21 08/20/21 08/20/21 18:59 06:59 18:59 Intake Total 670 860 Output Total 3333 3064 5227 Balance -499 -6304 -1804 Weight 68.039 kg Intake: Oral 360 860 Blood Product 310 Rc As-1 Unit 310 [id number] Output: Drainage 68 35 Right Lower 68 35 Urine 1525 2100 2125 Other: Voiding Method Indwelling Catheter Indwelling Catheter - Labs CBC & Chem 7: 08/20/21 07:49 08/20/21 07:49 Labs: Abnormal Lab Results - Last 24 Hours (Table) 08/15/21 08/20/21 08/20/21 Range/Units 05:37 07:49 07:49 WBC 70.6 H* (3.8-10.6) k/uL RBC 3.03 L (3.80-5.40) m/uL Hgb 9.2 L D (11.4-16.0) gm/dL Hct 29.7 L (34.0-46.0) % RDW 17.2 H (11.5-15.5) % Sodium 136 L (137-145) mmol/L Glucose 124 H (74-99) mg/dL AST 39 H (14-36) U/L ALT 37 H (4-34) U/L C-Reactive Protein 0.90 H (0.00-0.80) mg/dL Total Protein 5.6 L (6.3-8.2) g/dL Albumin 3.2 L (3.5-5.0) g/dL Microbiology - Last 24 Hours (Table) 08/17/21 17:54 Blood Culture - Preliminary Blood No Growth after 48 hours 08/15/21 15:21 Blood Culture - Preliminary Blood No Growth after 96 hours
[2021-08-20] MEDS: ATORVASTATIN 20 MG TAB PO SCH (20:56)
[2021-08-20] MEDS: MIRTAZAPINE 15 MG TAB PO SCH (20:57)
[2021-08-20] MEDS: MONTELUKAST 10 MG TAB PO SCH (20:57)
[2021-08-20] MEDS: polyethylene glycoL 3350 17 GM POWD.PACK PO SCH (20:58)
[2021-08-20] MEDS: ACETAMINOPHEN TAB 325 MG TAB PO PRN (21:28)
[2021-08-20] MEDS: DULoxetine HCL 30 MG CAPSULE.DR PO SCH (21:28)
[2021-08-20] MEDS: oxyCODONE-APAP 5-325MG 1 EACH TAB PO PRN (21:28)
--- NOTE | 2021-08-20 22:06 | P.PN ---
Subjective Progress Note Date: 08/20/21 Principal diagnosis: L4 burst fracture and question of Osteomyelitis Patient is 66-year-old female presented to hospital with low back pain and has been diagnosed with the L4 burst fracture in this patient who is status post L2 to S1 stabilization with decompression L2 to L5 that was completed on 08/16/2021. On today's evaluation that is 08/20/2021, the patient remains to be afebrile, the patient lower back pain is currently controlled with the pain medication, the patient denies chest pain shortness of breath or cough , the patient denies nausea no vomiting no abdominal pain no diarrhea, Objective - Vital Signs Vital signs: Vital Signs Temp 98.7 F 08/20/21 11:29 Pulse 85 08/20/21 11:29 Resp 16 08/20/21 11:29 BP 146/79 08/20/21 11:29 Pulse Ox 95 08/20/21 11:29 Intake & Output 08/19/21 08/20/21 08/20/21 18:59 06:59 18:59 Intake Total 670 860 Output Total 1593 2135 925 Balance -923 -5 -65 Weight 68.039 kg Intake: Oral 360 860 Blood Product 310 Rc As-1 Unit 310 [id number] Output: Drainage 68 35 Right Lower 68 35 Urine 1525 2100 925 Other: Voiding Method Indwelling Catheter Indwelling Catheter - Exam GENERAL DESCRIPTION:[ Patient is awake and alert in no distress] HEENT: [Oral mucosa is dry and no pharyngeal erythema] RESPIRATORY SYSTEM: [Unlabored breathing decreased breath sounds at the base CARDIA VASCULAR SYSTEM: [S1-S2 regular rate and rhythm no murmur] GI: [Abdominal soft there's no tenderness no organomegaly] EXTREMITIES: [No edema feet] - Labs CBC & Chem 7: 08/20/21 07:49 08/20/21 07:49 Labs: Abnormal Lab Results - Last 24 Hours (Table) 08/15/21 08/19/21 08/20/21 Range/Units 05:37 09:14 07:49 WBC 70.6 H* (3.8-10.6) k/uL RBC 3.03 L (3.80-5.40) m/uL Hgb 9.2 L D (11.4-16.0) gm/dL Hct 29.7 L (34.0-46.0) % RDW 17.2 H (11.5-15.5) % Sodium (137-145) mmol/L Glucose (74-99) mg/dL AST (14-36) U/L ALT (4-34) U/L C-Reactive Protein 0.90 H (0.00-0.80) mg/dL Total Protein (6.3-8.2) g/dL Albumin (3.5-5.0) g/dL Crossmatch See Detail 08/20/21 Range/Units 07:49 WBC (3.8-10.6) k/uL RBC (3.80-5.40) m/uL Hgb (11.4-16.0) gm/dL Hct (34.0-46.0) % RDW (11.5-15.5) % Sodium 136 L (137-145) mmol/L Glucose 124 H (74-99) mg/dL AST 39 H (14-36) U/L ALT 37 H (4-34) U/L C-Reactive Protein (0.00-0.80) mg/dL Total Protein 5.6 L (6.3-8.2) g/dL Albumin 3.2 L (3.5-5.0) g/dL Crossmatch Microbiology - Last 24 Hours (Table) 08/17/21 17:54 Blood Culture - Preliminary Blood No Growth after 48 hours 08/15/21 15:21 Blood Culture - Preliminary Blood No Growth after 96 hours Assessment and Plan (1) Leukocytosis Current Visit: Yes Status: Acute Code(s): D72.829 - ELEVATED WHITE BLOOD CELL COUNT, UNSPECIFIED SNOMED Code(s): 831747727 (2) Compression fracture of L4 vertebra Current Visit: Yes Status: Acute Code(s): S32.040A - WEDGE COMPRESSION FRACTURE OF FOURTH LUMBAR VERTEBRA, INIT SNOMED Code(s): 663693770 Plan: 1patient with compression fracture of the L4 vertebral with concern for possible Osteomyelitis patient is status post surgery and deep cultures which remains to be negative, patient's empirically covered with vancomycin and Azactam 2-patient with leukocytosis which could be more likely to steroid effect as the patient does not look toxic and is not running any fever, patient also have cephalosporin ALLERGY and is currently covered with vancomycin and Azactam and waiting for the culture finalized, however the culture remains to be negative will be able to discontinue antibiotics Time with Patient: Less than 30
[2021-08-21] MEDS: DEXAMETHASONE SOD PHOSPHATE 4 MG/ML 1 ML VIAL IVP SCH ×2 (03:34→09:49)
[2021-08-21] MEDS: IPRATROPIUM 0.5 MG/2.5 ML NEBU INHALATION SCH ×4 (07:21→21:13)
[2021-08-21] MEDS: SYMBICORT 160-4.5 MCG INHALER INHALATION SCH ×2 (07:22→21:12)
[2021-08-21] MEDS: oxyCODONE-APAP 5-325MG 1 EACH TAB PO PRN ×3 (07:31→21:16)
[2021-08-21] MEDS: LEVOTHYROXINE SODIUM SUBLINGUAL SCH (08:08)
[2021-08-21] MEDS: VANCOMYCIN 1,250 MG in SODIUM CHLORIDE 0.9% 250 ML IVPB SCH (08:36)
[2021-08-21 09:14] LABS: HCT 27.3 % (37.2-46.3); HGB 8.4 g/dL (12.0-15.0); MCH 29.9 pg (27.0-32.0); MCHC 30.8 g/dL (32.0-37.0); MCV 97.2 fL (80.0-97.0); Platelet Count 222 X 10*3/uL (140-440); RBC 2.81 X 10*6/uL (4.10-5.20); RDW 17.5 % (11.5-14.5); WBC 58.23 X 10*3/uL (4.50-10.00)
[2021-08-21 09:17] LABS: ALT 44 U/L (8-44); AST 34 U/L (13-35); African American GFR (CKD) 110.1 (60.0-200.0); Albumin 3.5 g/dL (3.8-4.9); Albumin/Globulin Ratio 2.06 (1.60-3.17); Alkaline Phosphatase 62 U/L (41-126); BUN/Creat Ratio 21.33 Ratio (12.00-20.00); Blood Urea Nitrogen 12.8 mg/dL (9.0-27.0); Calcium 8.5 mg/dL (8.7-10.3); Carbon Dioxide 24.2 mmol/L (20.0-27.5); Chloride 103 mmol/L (96-109); Globulin 1.7 g/dL (1.6-3.3); Glucose 99 mg/dL (70-110); Phosphorus 2.8 mg/dL (2.4-5.1); Potassium 3.8 mmol/L (3.5-5.5); Sodium 138 mmol/L (135-145); Total Bilirubin <0.20 mg/dL (0.30-1.20); Total Protein 5.2 g/dL (6.2-8.2)
[2021-08-21] MEDS: FERROUS SULFATE 325 MG TAB PO SCH (09:45)
[2021-08-21] MEDS: GABAPENTIN 300 MG CAP PO SCH ×3 (09:46→21:16)
[2021-08-21] MEDS: SULFAMETHOX-TMP 800-160MG 1 EACH TAB PO SCH (09:46)
[2021-08-21] MEDS: TOPIRAMATE 100 MG TAB PO SCH ×2 (09:46→21:16)
[2021-08-21] MEDS: PRIMIDONE 50 MG TAB PO SCH ×3 (09:46→21:17)
[2021-08-21] MEDS: AZTREONAM 2 GM in SODIUM CHLORIDE 0.9% 100 ML IVPB SCH (09:50)
[2021-08-21] MEDS: BUPRENORPHINE 300 MCG SUBLINGUAL SCH ×2 (10:11→21:15)
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
[2021-08-21] MEDS: LACTATED RINGERS 1,000 ML IV SCH (12:58)
--- NOTE | 2021-08-21 14:33 | P.PN ---
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 Patient states this began approximately one week ago shortly after receiving her booster Moderna Vaccination. In the emergency department she underwent a CT head revealing no acute intercranial abnormality. Her th WBC count was 23.2, chronicially elevated liver enzymes, and elevated carbon dioxide of 34. X-ray of pelvis showed posttraumatic changes to the pubic rami and lumbar spine with reduced bone mineralization, multiple phleboliths are present within the pelvis, no acute fracture or dislocation reported. X-ray lumbar spine revealing an osteoporotic compression fracture of L4 with retropulsed superior endplate suspected. Neurology and orthospine surgery were consulted. MRI lumbar spine revealing compression fracture of L4 with moderately severe spinal stenosis related to posterior mild fragment extension as well as hypertrophic facet arthropathy as well as old T12 compression fracture unchanged. MRI cervial and thoarsic showed no acute pathology. Surgery was recommended by orthospine she underwent L2-S1 stabilization on 08/16 without any complications. She did have some acute blood loss anemia and required 1 unit pRBC intraop. She was found to have severe Fe deficiency and was stated on IV iron. Family has elected to delay the second stage of her procedure until she gets stronger after going to subacute rehab 08/21/2021: Patient states that she feels weak. She denies any acute complaints. Objective - Vital Signs Vital signs: Vital Signs Temp 98.1 F 08/21/21 12:22 Pulse 80 08/21/21 12:22 Resp 14 08/21/21 12:22 BP 136/76 08/21/21 12:22 Pulse Ox 98 08/21/21 12:22 Intake & Output 08/20/21 08/21/21 08/21/21 18:59 06:59 18:59 Intake Total 1908 200 Output Total 9704 1700 2400 Balance -217 -1500 -2400 Weight 68.039 kg Intake: Intake, IV Titration 450 Amount Aztreonam 2 gm In Sodium 100 Chloride 0.9% 100 ml @ 33 .3 mls/hr IVPB Q8HR [facility] Rx#:[id number] Sodium Ferric Gluconat- 100 Sucrose 125 mg In Sodium Chloride 0.9% 100 ml @ 100 mls/hr IVPB DAILY [facility] Rx#:[id number] Vancomycin 1,250 mg In 250 Sodium Chloride 0.9% 250 ml @ 125 mls/hr IVPB Q12H [facility] Rx#:[id number] Oral 1458 200 Output: Urine 2125 1700 2400 Other: Voiding Method Indwelling Catheter Indwelling Catheter Indwelling Catheter - Exam General examination - Alert and Oriented 3 in NAD, patient appears chronically debilitated Heart - + S1S2 no murmurs Lungs - Clear to auscultation Abdomen soft NT ND +ve BS Extremities - No edema [employer] - Moving all 4 extremities spontaneously Psych - Calm and cooperative - Labs CBC & Chem 7: 08/21/21 03:33 08/21/21 03:33 Labs: Abnormal Lab Results - Last 24 Hours (Table) 08/19/21 08/21/21 08/21/21 Range/Units 09:14 03:33 03:33 WBC 58.23 H* (4.50-10.00) X 10*3/uL RBC 2.81 L (4.10-5.20) X 10*6/uL Hgb 8.4 L (12.0-15.0) g/dL Hct 27.3 L (37.2-46.3) % MCV 97.2 H (80.0-97.0) fL MCHC 30.8 L (32.0-37.0) g/dL RDW 17.5 H (11.5-14.5) % Absolute Nucleated RBC 1.20 H (0.00-0.00) X 10*3/uL NRBC/100 WBC Diff 2.1 H (0.0-0.0) /100 WBCS BUN/Creatinine Ratio 21.33 H (12.00-20.00) Ratio Calcium 8.5 L (8.7-10.3) mg/dL Total Bilirubin <0.20 L (0.30-1.20) mg/dL Total Protein 5.2 L (6.2-8.2) g/dL Albumin 3.5 L (3.8-4.9) g/dL Crossmatch See Detail Microbiology - Last 24 Hours (Table) 08/16/21 18:24 Anaerobic Culture - Final Other - Other 08/16/21 18:24 Anaerobic Culture - Final Other - Other 08/17/21 17:54 Blood Culture - Preliminary Blood No Growth after 72 hours 08/15/21 15:21 Blood Culture - Preliminary Blood No Growth after 120 hours Assessment and Plan Assessment: #L4 compression/burst fracture with right lower extremity weakness status post L2 to S1 stabilization on 08/16. Repeat surgery plan after patient goes to subacute rehab -Orthospine surgery recs -Will gradually taper down decadron every 3 days -All told with a back brace to help with her therapy. -Pain control -Fall precautions -PT/OT #Acute blood loss anemia with severe iron deficiency anemia - s/p 2 units - follow CBC - s/p IV iron 3 days - Patient started on oral iron. #Acute pain with hx of opiate use disorder - recommend continuing bupe -Decrease Percocet to every 8 hours #Constipation - miralax - increased movement #Leukocytosis of undetermined etiology #History of common variable immunodeficiency -Suspect component of being reactive in addition to adding Decadron -Pro-calcitonin negative pre-op -Chest x-ray without signs of infection and UA negative -All cultures during surgery have been negative to date -WBC is trending down however still significantly elevated -Infectious disease discontinued all antibiotics - ESR normal -Decadron could be contributing -Patient will need repeat CBC after discharge in 5 days #COPD with chronic hypoxic/hypercapnic respiratory failure #Obstructive sleep apnea CPAP dependent #Chronic diaphragmatic paralysis - maintain SPO2 equal to or greater than 92%, Home O2 4L -Duonebs as needed for SOB and/or wheezing -Incentive Spirometry -Steroids: once off decadron will need home prednisone resumed -Continuation of daily medication regimen including Singulair and Symbicort. -Pulmonology recs appreciated -> clear for discharge from a pulmonology standpoint: #Hypothyroidism -TSH of 91.300 and free T4 of less than 0.100. -Continue Levothyroxine and T3 negative -Endocrinology upon discharge #Transaminitis - chronic - at baseline - continue to follow #Hypokalemia,resolved DVT prophylaxis: SCDs Discussed with: Nursing, patient Anticipated discharge: tomorrow if Hgb is stable Anticipated discharge place: SNF [facility]
[2021-08-21] MEDS: dexAMETHasone 4 MG TAB PO SCH (18:23)
[2021-08-21] MEDS: DULoxetine HCL 30 MG CAPSULE.DR PO SCH (21:17)
[2021-08-21] MEDS: MONTELUKAST 10 MG TAB PO SCH (21:17)
[2021-08-21] MEDS: ATORVASTATIN 20 MG TAB PO SCH (21:17)
[2021-08-21] MEDS: MIRTAZAPINE 15 MG TAB PO SCH (21:17)
[2021-08-21] MEDS: polyethylene glycoL 3350 17 GM POWD.PACK PO SCH (21:18)
[2021-08-22] MEDS: dexAMETHasone 4 MG TAB PO SCH ×3 (03:05→17:24)
[2021-08-22] MEDS: oxyCODONE-APAP 5-325MG 1 EACH TAB PO PRN ×3 (05:17→21:10)
[2021-08-22 05:19] LABS: Anisocytosis Slight; HCT 29.3 % (34.0-46.0); HGB 9.2 gm/dL (11.4-16.0); Hypochromasia Slight; MCHC 31.5 g/dL (31.0-37.0); MCV 98.4 fL (80.0-100.0); Macrocytosis Slight; Mean Platelet Volume 8.4; Platelet Count 266 k/uL (150-450); RBC 2.98 m/uL (3.80-5.40); RDW 18.6 % (11.5-15.5)
[2021-08-22 06:28] LABS: Band Neutrophils % 9 %; Lymphocytes # (M) 1.96 k/uL (1.0-4.8); Metamyelocytes # (M) 0.98 k/uL (0); Metamyelocytes % 2 %; Monocytes # (M) 2.95 k/uL (0-1.0); Myelocytes # (M) 2.46 k/uL (0); Myelocytes % 5 %; Neutrophils % (M) 74 %; Nucleated Red Blood Cells 2 /100 WBC (0-0); Total Cells Counted 100; WBC 49.1 k/uL (3.8-10.6)
[2021-08-22 06:29] LABS: Anisocytosis (M) Present; Polychromasia Present
[2021-08-22] MEDS ORDERED: VANCOMYCIN TROUGH DUE 1 EACH MISC MISCELLANE ONE (07:00)
--- NOTE | 2021-08-22 07:17 | P.PN ---
Subjective Progress Note Date: 08/21/21 Principal diagnosis: L4 burst fracture and question of Osteomyelitis Patient is 66-year-old female presented to hospital with low back pain and has been diagnosed with the L4 burst fracture in this patient who is status post L2 to S1 stabilization with decompression L2 to L5 that was completed on 08/16/2021. On today's evaluation that is 08/21/2021, the patient continues to be afebrile, the patient lower back pain is currently controlled, the patient denies chest pa in shortness of breath or cough , the patient denies nausea no vomiting no abdominal pain no diarrhea, overall feeling better Objective - Vital Signs Vital signs: Vital Signs Temp 97.9 F 08/21/21 07:03 Pulse 76 08/21/21 11:42 Resp 16 08/21/21 11:42 BP 158/68 08/21/21 07:03 Pulse Ox 95 08/21/21 07:22 Intake & Output 08/20/21 08/21/21 08/21/21 18:59 06:59 18:59 Intake Total 1908 200 Output Total 2125 1700 975 Balance -217 -1500 -975 Weight 68.039 kg Intake: Intake, IV Titration 450 Amount Aztreonam 2 gm In Sodium 100 Chloride 0.9% 100 ml @ 33 .3 mls/hr IVPB Q8HR [facility] Rx#:[id number] Sodium Ferric Gluconat- 100 Sucrose 125 mg In Sodium Chloride 0.9% 100 ml @ 100 mls/hr IVPB DAILY [facility] Rx#:[id number] Vancomycin 1,250 mg In 250 Sodium Chloride 0.9% 250 ml @ 125 mls/hr IVPB Q12H [facility] Rx#:[id number] Oral 1458 200 Output: Urine 2125 1700 975 Other: Voiding Method Indwelling Catheter Indwelling Catheter Indwelling Catheter - Exam GENERAL DESCRIPTION:[ Patient is awake and alert in no distress] HEENT: [Oral mucosa is dry and no pharyngeal erythema] RESPIRATORY SYSTEM: [Unlabored breathing decreased breath sounds at the base CARDIA VASCULAR SYSTEM: [S1-S2 regular rate and rhythm no murmur] GI: [Abdominal soft there's no tenderness no organomegaly] EXTREMITIES: [No edema feet] - Labs CBC & Chem 7: 08/22/21 04:58 08/21/21 03:33 Labs: Abnormal Lab Results - Last 24 Hours (Table) 08/19/21 08/21/21 08/21/21 Range/Units 09:14 03:33 03:33 WBC 58.23 H* (4.50-10.00) X 10*3/uL RBC 2.81 L (4.10-5.20) X 10*6/uL Hgb 8.4 L (12.0-15.0) g/dL Hct 27.3 L (37.2-46.3) % MCV 97.2 H (80.0-97.0) fL MCHC 30.8 L (32.0-37.0) g/dL RDW 17.5 H (11.5-14.5) % Absolute Nucleated RBC 1.20 H (0.00-0.00) X 10*3/uL NRBC/100 WBC Diff 2.1 H (0.0-0.0) /100 WBCS BUN/Creatinine Ratio 21.33 H (12.00-20.00) Ratio Calcium 8.5 L (8.7-10.3) mg/dL Total Bilirubin <0.20 L (0.30-1.20) mg/dL Total Protein 5.2 L (6.2-8.2) g/dL Albumin 3.5 L (3.8-4.9) g/dL Crossmatch See Detail Microbiology - Last 24 Hours (Table) 08/16/21 18:24 Anaerobic Culture - Final Other - Other 08/16/21 18:24 Anaerobic Culture - Final Other - Other 08/17/21 17:54 Blood Culture - Preliminary Blood No Growth after 72 hours 08/15/21 15:21 Blood Culture - Preliminary Blood No Growth after 120 hours Assessment and Plan (1) Leukocytosis Current Visit: Yes Status: Acute Code(s): D72.829 - ELEVATED WHITE BLOOD CELL COUNT, UNSPECIFIED SNOMED Code(s): 410183092 (2) Compression fracture of L4 vertebra Current Visit: Yes Status: Acute Code(s): S32.040A - WEDGE COMPRESSION FRACTURE OF FOURTH LUMBAR VERTEBRA, INIT SNOMED Code(s): 581880896 Plan: 1patient with compression fracture of the L4 vertebral with concern for possible Osteomyelitis patient is status post surgery and deep cultures which remains to be negative, we will discontinue vancomycin and Azactam and monitor the patient closely off antibiotic 2-patient with leukocytosis which could be more likely to steroid effect as the patient does not look toxic and is not running any fever, patient white count is trending down however in the office cultures being negative and no obvious focus of infection antibiotics will be discontinued and we'll monitor the patient closely off antibiotics
[2021-08-22] MEDS: LEVOTHYROXINE SODIUM SUBLINGUAL SCH (08:12)
[2021-08-22] MEDS: SYMBICORT 160-4.5 MCG INHALER INHALATION SCH ×2 (08:45→21:57)
[2021-08-22] MEDS: IPRATROPIUM 0.5 MG/2.5 ML NEBU INHALATION SCH ×4 (08:45→21:57)
[2021-08-22] MEDS: GABAPENTIN 300 MG CAP PO SCH ×3 (10:35→21:10)
[2021-08-22] MEDS: FERROUS SULFATE 325 MG TAB PO SCH (10:35)
--- NOTE | 2021-08-22 10:35 | P.PN ---
Subjective Progress Note Date: 08/22/21 Principal diagnosis: L4 burst fracture, status post L2-L1 posterior stabilization with decompression L2-L5 Patient was evaluated today at bedside. She is up in her chair resting. She is utilizing LSO brace. She states that she's been ambulating in the room and the halls with minimal difficulty. Her pain is much improved, the strength in the bilateral lower extremities is much improved. Urinary catheter still remains in place. Currently denying any headaches, lightheadedness, chest pain or shortness of breath. Objective - Vital Signs Vital signs: Vital Signs Temp 97.5 F L 08/22/21 08:03 Pulse 80 08/22/21 08:57 Resp 19 08/22/21 08:03 BP 106/68 08/22/21 08:03 Pulse Ox 96 08/22/21 08:03 Intake & Output 08/21/21 08/22/21 08/22/21 18:59 06:59 18:59 Intake Total 180 Output Total 2400 1600 500 Balance -2400 -1600 -320 Intake: Oral 180 Output: Urine 2400 1600 500 Uretheral (Cevallos) 500 Other: Voiding Method Indwelling Catheter Indwelling Catheter Indwelling Catheter - Exam Gen: AOx3, NAD VSS stable at this time Integument: Drain was removed few days prior, bandages are all clean, dry and intact Palpation: Mild tenderness with palpation to the midline and paraspinal region of the lower lumbar spine, no tenderness in the cervical or thoracic spine ROM: Range of motion in all major muscle groups of the bilateral upper and lower extremities Sensory Exam: Senory exam to light touch is intact C5-T1 Senosry exam to light touch is intact L2-S1 Motor: 55 strength appreciated in the bilateral upper extremities with shoulder abduction, shoulder elevation, elbow extension, elbow flexion, wrist extension, wrist flexion, apprenticeship representative strength 4+/5 strength appreciated in the bilateral lower extremities with hip flexion, knee extension, knee flexion, plantar flexion, dorsiflexion, sensory hallucis longus, flexor hallucis longus Reflexes: 2/4 in all UE and LE Negative Georgiana's bilaterally Negative Babinski bilaterally Negative clonus bilaterally - Labs CBC & Chem 7: 08/22/21 04:58 08/21/21 03:33 Labs: Abnormal Lab Results - Last 24 Hours (Table) 08/22/21 Range/Units 04:58 WBC 49.1 H (3.8-10.6) k/uL RBC 2.98 L (3.80-5.40) m/uL Hgb 9.2 L (11.4-16.0) gm/dL Hct 29.3 L (34.0-46.0) % RDW 18.6 H (11.5-15.5) % Neutrophils # (Manual) 40.70 H (1.3-7.7) k/uL Monocytes # (Manual) 2.95 H (0-1.0) k/uL Metamyelocytes # (Man) 0.98 H (0) k/uL Myelocytes # (Manual) 2.46 H (0) k/uL Nucleated RBCs 2 H (0-0) /100 WBC Microbiology - Last 24 Hours (Table) 08/17/21 17:54 Blood Culture - Preliminary Blood No Growth after 96 hours 08/15/21 15:21 Blood Culture - Final Blood No Growth after 144 hours Assessment and Plan Assessment: Low back pain Right lower extremity radiculopathy L4 burst fracture Postoperative day #6 status post L2-S1 and posterior stabilization with dec ompression of L2-L5 Plan: Pain control, recommending continuation of current medication DVT prophylaxis, continue subcu medication while in hospital Continue weightbearing as tolerated with walker, use of also brace when up and moving. No bending, lifting, twisting at this time Wound care, recommend wound care changes every 1-2 days. Opteform dressing may be utilized to rehab, this can be changed every 5 days Encourage incentive spirometer Medical recommendations Discharge planning: On orthopedic standpoint patient stable for discharge to rehab and follow-up in the outpatient setting Time with Patient: Less than 30
[2021-08-22] MEDS: TOPIRAMATE 100 MG TAB PO SCH ×2 (10:36→21:10)
[2021-08-22] MEDS: BUPRENORPHINE 300 MCG SUBLINGUAL SCH ×2 (10:37→21:10)
[2021-08-22] MEDS: PRIMIDONE 50 MG TAB PO SCH ×3 (10:37→21:11)
[2021-08-22] MEDS: LACTATED RINGERS 1,000 ML IV SCH (11:44)
--- NOTE | 2021-08-22 13:40 | P.PN ---
Subjective Progress Note Date: 08/22/21 CC: weakness Patient is a 66-year-old female with Common variable immunodeficiency on chronic immunoglobin injects q2 weeks, Opiate use disorder in remission, and COPD with home oxygen at 4 L, obstructive sleep apnea CPAP dependent nightly, GERD, and hypothyroidism who presented to the emergency department with a chief complaint of right lower extremity weakness, back pain, gait instability, and recurrent falls. Patient states this began approximately one week ago shortly after receiving her booster Moderna Vaccination. In the emergency department she underwent a CT head revealing no acute intercranial abnormality. Her th WBC count was 23.2, chronicially elevated liver enzymes, and elevated carbon dioxide of 34. X-ray of pelvis showed posttraumatic changes to the pubic rami and lumbar spine with reduced bone mineralization, multiple phleboliths are present within the pelvis, no acute fracture or dislocation reported. X-ray lumbar spine revealing an osteoporotic compression fracture of L4 with retropulsed superior endplate suspected. Neurology and orthospine surgery were consulted. MRI lumbar spine revealing compression fracture of L4 with moderately severe spinal stenosis related to posterior mild fragment extension as well as hypertrophic facet arthropathy as well as old T12 compression fracture unchanged. MRI cervial and thoarsic showed no acute pathology. Surgery was recommended by orthospine she underwent L2-S1 stabilization on 08/16 without any complications. She did have some acute blood loss anemia and required 1 unit pRBC intraop. She was found to have severe Fe deficiency and was stated on IV iron. Family has elected to delay the second stage of her procedure until she gets stronger after going to subacute rehab 08/22/2021: Patient was sitting in chair with brace when I went to go see her. She states that she is doing well. I told patient that she'll be going to rehab and then patient became upset because we are "moving too fast". I told patient that she is deemed better and she is recovering and going to rehab will help her with her recovery process. Objective - Vital Signs Vital signs: Vital Signs Temp 97.5 F L 08/22/21 08:03 Pulse 86 08/22/21 13:14 Resp 19 08/22/21 08:03 BP 106/68 08/22/21 08:03 Pulse Ox 96 08/22/21 08:03 Intake & Output 08/21/21 08/22/21 08/22/21 18:59 06:59 18:59 Intake Total 180 Output Total 2400 1600 500 Balance -2400 -1600 -320 Intake: Oral 180 Output: Urine 2400 1600 500 Uretheral (Cevallos) 500 Other: Voiding Method Indwelling Catheter Indwelling Catheter Indwelling Catheter - Exam General examination - Alert and Oriented 3 in NAD, patient appears chronically debilitated Heart - + S1S2 no murmurs Lungs - Clear to auscultation Abdomen soft NT ND +ve BS Extremities - No edema 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 - Moving all 4 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 spontaneously Psych - Calm and cooperative - Labs CBC & Chem 7: 08/22/21 04:58 08/21/21 03:33 Labs: Abnormal Lab Results - Last 24 Hours (Table) 08/22/21 Range/Units 04:58 WBC 49.1 H (3.8-10.6) k/uL RBC 2.98 L (3.80-5.40) m/uL Hgb 9.2 L (11.4-16.0) gm/dL Hct 29.3 L (34.0-46.0) % RDW 18.6 H (11.5-15.5) % Neutrophils # (Manual) 40.70 H (1.3-7.7) k/uL Monocytes # (Manual) 2.95 H (0-1.0) k/uL Metamyelocytes # (Man) 0.98 H (0) k/uL Myelocytes # (Manual) 2.46 H (0) k/uL Nucleated RBCs 2 H (0-0) /100 WBC Microbiology - Last 24 Hours (Table) 08/17/21 17:54 Blood Culture - Preliminary Blood No Growth after 96 hours 08/15/21 15:21 Blood Culture - Final Blood No Growth after 144 hours Assessment and Plan Assessment: #L4 compression/burst fracture with right lower extremity weakness status post L2 to S1 stabilization on 08/16. Repeat surgery plan after patient goes to subacute rehab -Orthospine surgery recs -Will gradually taper down decadron every 3 days -All told with a back brace to help with her therapy. -Pain control -Fall precautions -PT/OT #Acute blood loss anemia with severe iron deficiency anemia - s/p 2 units - follow CBC - s/p IV iron 3 days - Patient started on oral iron. #Acute pain with hx of opiate use disorder - recommend continuing bupe -Decrease Percocet to every 8 hours #Constipation - miralax - increased movement #Leukocytosis of undetermined etiology #History of common variable immunodeficiency -Suspect component of being reactive in addition to adding Decadron -Pro-calcitonin negative pre-op -Chest x-ray without signs of infection and UA negative -All cultures during surgery have been negative to date -WBC is trending down however still significantly elevated -Infectious disease discontinued all antibiotics - ESR normal -Decadron could be contributing -Patient will need repeat CBC after discharge in 5 days #COPD with chronic hypoxic/hypercapnic respiratory failure #Obstructive sleep apnea CPAP dependent #Chronic diaphragmatic paralysis - maintain SPO2 equal to or greater than 92%, Home O2 4L -Duonebs as needed for SOB and/or wheezing -Incentive Spirometry -Steroids: once off decadron will need home prednisone resumed -Continuation of daily medication regimen including Singulair and Symbicort. -Pulmonology recs appreciated -> clear for discharge from a pulmonology standpoint: #Hypothyroidism -TSH of 91.300 and free T4 of less than 0.100. -Continue Levothyroxine and T3 negative -Endocrinology upon discharge #Transaminitis - chronic - at baseline - continue to follow #Hypokalemia,resolved DVT prophylaxis: SCDs Discussed with: Nursing, patient Anticipated discharge: Patient is medically stable for discharge. Awaiting placement at custodial facility. Anticipated discharge place: SNF
--- NOTE | 2021-08-22 14:18 | P.PN ---
Subjective Progress Note Date: 08/22/21 Principal diagnosis: Restrictive lung disease. The patient is seen today August [id number] in follow-up on the regular medical floor. She is currently resting fairly comfortably in bed. Awake and alert in no acute distress. She is maintaining O2 saturations in the 90s on 4 L/m per nasal cannula. White count 23.4. Hemoglobin 15.2. INR 1.0. Sodium 136. Potassium 4.3. Creatinine 0.72. AST 70. ALT 53. CoVID 19 screen negative. Arterial blood gases yesterday revealed a PaO2 of 85, pCO2 51, pH 7.35 and 36% FiO2. The plan is for surgery with an L2 to pelvis stabilization and decompression for L4 burst fracture today. She is continued on Symbicort, albuterol, Singulair. She'll be educated regarding the use of the incentive spirometer and cough and deep breathing exercises postoperatively. The patient is seen today 08/17/2021 in follow-up on the selective care unit. She is currently resting fairly comfortably in bed. Awake and alert in no acute distress. Continues to maintain good O2 saturations in the 90s on 4 L nasal cannula. Yesterday she did undergo an L2S1 stabilization for her L4 burst fracture with decompression of L2 through L5, postoperative day #1. She is ready's started at the bedside with physical therapy. The plan is for possible return to [facility] for completion of the corpectomy of L4 with cage placement 08/20/2021. She is encouraged regarding increased use the incentive spirometer and cough and deep breathing exercises. Her pain is well controlled. She did require 1 unit of packed red blood cells. Current white count 6 2000. Hemoglobin 9.4. Platelets 238. Sodium 139. Potassium 4.6. Creatinine 0.65. Vancomycin trough 13.4. She is continued on vancomycin, Decadron and bronchodilators. The patient is seen today 08/21/2021 in follow-up on the regular medical floor. She is awake and alert in no acute distress. She is currently maintaining O2 saturations in the 90s on 4 L/m per nasal cannula. The patient and family had decided against a second surgery at this point. She'll be fitted for a lumbar sacral brace. The plan is for subacute rehabilitation. She is status post 2 units of packed red blood cells this admission. Current hemoglobin 8.4. Platelet count 222,000. White count 58.2. Sodium 1:30. Potassium 3.8. Creatinine 0.6. She remains on Decadron. Antibiotics in the form of aztreonam, Bactrim. Continued on Symbicort and albuterol. Progress note dated 08/22/2021. The patient is again seen today in room 457. Currently, patient's on 3 L nasal cannula. She's getting saline at 20 mL an hour. The patient's in no distress. No respiratory issues at this time. She does tell me, that she is likely to be discharged to a rehab facility in [facility]. She could not remember the name of the facility. She is not sure she is going today or tomorrow. Again from the pulmonary standpoint, she appears to be relatively stable. I see the patient in the office for her restrictive lung disease, primarily, a diaphragmatic myopathy. White count 49.1, hemoglobin 9.2, hematocrit 29.4, and platelet count 266,000. No additional labs to report. Testing for brewster virus was negative. No recent chest x-ray to report. Objective - Vital Signs Vital signs: Vital Signs Temp 97.5 F L 08/22/21 08:03 Pulse 86 08/22/21 13:14 Resp 19 08/22/21 08:03 BP 106/68 08/22/21 08:03 Pulse Ox 96 08/22/21 08:03 Intake & Output 08/21/21 08/22/21 08/22/21 18:59 06:59 18:59 Intake Total 180 Output Total 2400 1600 500 Balance -2400 -1600 -320 Intake: Oral 180 Output: Urine 2400 1600 500 Uretheral (Cevallos) 500 Other: Voiding Method Indwelling Catheter Indwelling Catheter Indwelling Catheter - Exam No acute distress, oriented 3. Nasal O2 in place at 3 L. Saturations are 93%. HEENT examination is grossly unremarkable. Neck supple. Full range of motion. No adenopathy thyromegaly or neck vein distention. Cardiovascular examination reveals regular rhythm rate. S1-S2 normal. No S3 or S4. No discernible murmur noted. Heart sounds are distant. Heart rate 86 bpm. Lungs reveal mostly clear breath sounds. The patient does not take deep breaths. No distinct wheezes or crackles. Mild scattered rhonchi are noted. Breath sounds are equal bilaterally. Abdomen soft bowel sounds are heard. No masses or tenderness. Extremities are intact. No cyanosis clubbing or edema. Skin is without rash or lesion. Neurologic examination is brief but nonfocal. - Labs CBC & Chem 7: 08/22/21 04:58 08/21/21 03:33 Labs: Abnormal Lab Results - Last 24 Hours (Table) 08/22/21 Range/Units 04:58 WBC 49.1 H (3.8-10.6) k/uL RBC 2.98 L (3.80-5.40) m/uL Hgb 9.2 L (11.4-16.0) gm/dL Hct 29.3 L (34.0-46.0) % RDW 18.6 H (11.5-15.5) % Neutrophils # (Manual) 40.70 H (1.3-7.7) k/uL Monocytes # (Manual) 2.95 H (0-1.0) k/uL Metamyelocytes # (Man) 0.98 H (0) k/uL Myelocytes # (Manual) 2.46 H (0) k/uL Nucleated RBCs 2 H (0-0) /100 WBC Microbiology - Last 24 Hours (Table) 08/17/21 17:54 Blood Culture - Preliminary Blood No Growth after 96 hours 08/15/21 15:21 Blood Culture - Final Blood No Growth after 144 hours Assessment and Plan Assessment: Low back pain, with right lower extremity radiculopathy. L4 burst fracture, status post L2 to S1 stabilization with decompression of L2 through L5. History of severe restrictive and obstructive lung disease. Chronic hypoxemic respiratory failure. Chronic diaphragmatic myopathy. History of common variable immunodeficiency syndrome. History of adrenal insufficiency. Hypothyroidism. History of chest wall hematoma. Chronic low back pain. Essential tremors. Status post T12 kyphoplasty. Plan: Plan dated 08/22/2021. The patient is very stable from the pulmonary standpoint. The patient should follow with me in the office after discharge. Apparently, the patient is going to be discharged to a rehab facility in [place], [place]. She is on 3 L nasal cannula. She's getting saline at 20 mL an hour. Labs, x-rays, and medications are all reviewed. Prognosis is guarded. Time with Patient: Less than 30
[2021-08-22] MEDS: DULoxetine HCL 30 MG CAPSULE.DR PO SCH (21:10)
[2021-08-22] MEDS: ATORVASTATIN 20 MG TAB PO SCH (21:10)
[2021-08-22] MEDS: MONTELUKAST 10 MG TAB PO SCH (21:10)
[2021-08-22] MEDS: MIRTAZAPINE 15 MG TAB PO SCH (21:10)
[2021-08-22] MEDS: polyethylene glycoL 3350 17 GM POWD.PACK PO SCH (21:31)
--- NOTE | 2021-08-22 22:22 | P.PN ---
Subjective Progress Note Date: 08/22/21 Principal diagnosis: L4 fracture and question of osteomyelitis Patient is 66-year-old female presented to hospital with low back pain and has been diagnosed with the L4 burst fracture in this patient who is status post L2 to S1 stabilization with decompression L2 to L5 that was completed on 08/16/2021. On today's evaluation that is 08/22/2021, the patient remains to be afebrile, the patient lower back pain is currently controlled with the current medication, the patient denies chest pain shortness of breath or cough , the patient denies nausea no vomiting no abdominal pain no diarrhea Objective - Vital Signs Vital signs: Vital Signs Temp 98.2 F 08/22/21 19:15 Pulse 88 08/22/21 19:15 Resp 14 08/22/21 19:15 BP 116/67 08/22/21 19:15 Pulse Ox 98 08/22/21 19:15 Intake & Output 08/22/21 08/22/21 08/23/21 06:59 18:59 06:59 Intake Total 180 Output Total 1600 500 Balance -1600 -320 Intake: Oral 180 Output: Urine 1600 500 Uretheral (Cevallos) 500 Other: Voiding Method Indwelling Catheter Indwelling Catheter Toilet - Exam GENERAL DESCRIPTION:[ Patient is awake and alert in no distress] HEENT: [Oral mucosa is dry and no pharyngeal erythema] RESPIRATORY SYSTEM: [Unlabored breathing decreased breath sounds at the base CARDIA VASCULAR SYSTEM: [S1-S2 regular rate and rhythm no murmur] GI: [Abdominal soft there's no tenderness no organomegaly] EXTREMITIES: [No edema feet] - Labs CBC & Chem 7: 08/22/21 04:58 08/21/21 03:33 Labs: Abnormal Lab Results - Last 24 Hours (Table) 08/22/21 Range/Units 04:58 WBC 49.1 H (3.8-10.6) k/uL RBC 2.98 L (3.80-5.40) m/uL Hgb 9.2 L (11.4-16.0) gm/dL Hct 29.3 L (34.0-46.0) % RDW 18.6 H (11.5-15.5) % Neutrophils # (Manual) 40.70 H (1.3-7.7) k/uL Monocytes # (Manual) 2.95 H (0-1.0) k/uL Metamyelocytes # (Man) 0.98 H (0) k/uL Myelocytes # (Manual) 2.46 H (0) k/uL Nucleated RBCs 2 H (0-0) /100 WBC Microbiology - Last 24 Hours (Table) 08/17/21 17:54 Blood Culture - Preliminary Blood No Growth after 120 hours 08/15/21 15:21 Blood Culture - Final Blood No Growth after 144 hours Assessment and Plan (1) Leukocytosis Current Visit: Yes Status: Acute Code(s): D72.829 - ELEVATED WHITE BLOOD CELL COUNT, UNSPECIFIED SNOMED Code(s): 203895401 (2) Compression fracture of L4 vertebra Current Visit: Yes Status: Acute Code(s): S32.040A - WEDGE COMPRESSION FRACTURE OF FOURTH LUMBAR VERTEBRA, INIT SNOMED Code(s): 135241411 Plan: 1patient with compression fracture of the L4 vertebral with concern for possible Osteomyelitis patient is status post surgery and deep cultures which remains to be negative, patient is currently being monitored closely off antibiotic 2-patient with leukocytosis which could be more likely to steroid effect as the patient does not look toxic and is not running any fever, patient white count is trending down however in the office cultures being negative and no obvious focus of infection antibiotics as being discontinued and will monitor the patient closely off antibiotics
--- NOTE | 2021-08-23 00:04 | P.PN ---
Subjective Progress Note Date: 08/22/21 Patient was seen for a follow-up. Patient initially seen by Dr. Burak Steven. Please refer to his note for details. Patient is a 66-year-old female, who slid off the couch and fell on her buttocks producing L4 compression fracture. Patient states that she was sitting on the edge of the couch, which was slippery and she slid down to the carpet on her buttocks. Her back started hurting. She came to the hospital the following day. She did not pass out. She did not faint. Patient underwent L2 to S1 stabilization for L4 burst fracture with decompression L2 to L5 on 08/19/2021. Patient denies any neck pain in the symptoms in the upper extremities. No problem with control of bowels or bladder. She had a big bowel movement today. Denies any numbness or tingling in the legs. Patient tells me that she had history of prior to back surgeries. The first one was about 30 years ago and the second one was 10 years ago which involved kyphoplasty of T12 vertebra. MRI L-SPINE: Is reported as there is compression fracture of L4 which is new compared to old exam and there is moderately severe spinal stenosis related to posterior mild fragment extension as well as hypertrophic facet arthropathy. The fracture appears essentially new compared to lumbar spine x-ray on 08/04/2020. There is T12 old compression fracture unchanged. CT lumbar and thoracic spine is reported as confirmation of acute or subacute moderate to severe burst type fracture at L4 level is new from my 12/26/2021 CT. Has significant loosened component favoring acute etiology on a CT but not as much as edema as would expect an MRI to confirm this. Slight posture retro- pulses and is redemonstrated correlating with MRI. Osseous structure are demineralized. No additional acute or subacute fracture in the throughout goal of lumbar spine are demonstrated. MRI of the cervical and thoracic spine is reported as no suspicious epidural or paraspinal fluid collection or has been suggest infection and/or abscess. Objective - Vital Signs Vital signs: Vital Signs Temp 97.5 F L 08/22/21 08:03 Pulse 86 08/22/21 13:14 Resp 19 08/22/21 08:03 BP 106/68 08/22/21 08:03 Pulse Ox 96 08/22/21 08:03 Intake & Output 08/21/21 08/22/21 08/22/21 18:59 06:59 18:59 Intake Total 180 Output Total 2400 1600 500 Balance -2400 -1600 -320 Intake: Oral 180 Output: Urine 2400 1600 500 Uretheral (Cevallos) 500 Other: Voiding Method Indwelling Catheter Indwelling Catheter Indwelling Catheter - Exam Patient's mental status, speech and language functions are normal. Cranial nerves are all normal. Visual plascencia are full, face is symmetric. Pupils are round and reacting. Extraocular muscles intact. Tongue protrudes the midline. On muscle strength testing there is no pronator drift and the strength is normal in both arms distally and proximally. In the lower limbs (right/left) hip adduction 4/4, hip abduction 5/5, knee extension 4-3+/5 ankle dorsiflexion 5/5. Reflexes are 1+ in the upper limbs at biceps and brachioradialis, 0 at the knees and trace ankles and plantars are flat bilaterally. Sensory touch is equal in all dermatomes in the lower extremities. No ataxia for [id number] testing. - Labs CBC & Chem 7: 08/22/21 04:58 08/21/21 03:33 Labs: Abnormal Lab Results - Last 24 Hours (Table) 08/22/21 Range/Units 04:58 WBC 49.1 H (3.8-10.6) k/uL RBC 2.98 L (3.80-5.40) m/uL Hgb 9.2 L (11.4-16.0) gm/dL Hct 29.3 L (34.0-46.0) % RDW 18.6 H (11.5-15.5) % Neutrophils # (Manual) 40.70 H (1.3-7.7) k/uL Monocytes # (Manual) 2.95 H (0-1.0) k/uL Metamyelocytes # (Man) 0.98 H (0) k/uL Myelocytes # (Manual) 2.46 H (0) k/uL Nucleated RBCs 2 H (0-0) /100 WBC Microbiology - Last 24 Hours (Table) 08/17/21 17:54 Blood Culture - Preliminary Blood No Growth after 96 hours 08/15/21 15:21 Blood Culture - Final Blood No Growth after 144 hours Assessment and Plan Assessment: Acute L4 compression fracture s/p decompression of L2 the through L5 on 08/16/2021 Right lower posterior back pain causing limitation in movement of right lower extremity Right lumbar radiculopathy History of opoid overdose (according to nurse in past) Chronic back pain status post fusion over the T12 kyphoplasty Old left T12 compression fracture. History of right hip fracture COPD on home oxygen Osteoporosis History of esstentional tremor Hypothyroidism Plan: Acute L4 compression fracture s/p decompression of L2 through L5 on 08/16/2021 and 08/19/2021 Patient had right leg weakness, will require prolonged therapy. PT and OT are consulted Pain team is consulted for pain management. Pulmonary team is on board. I.D. is on board. Consider pain management consultation. Consider EMG and nerve conduction of right lower extremity as outpatient. Neurologically clear. Possible transfer to rehab in the morning.
[2021-08-23] MEDS: dexAMETHasone 4 MG TAB PO SCH ×2 (02:10→09:44)
[2021-08-23] MEDS: ACETAMINOPHEN TAB 325 MG TAB PO PRN (02:11)
[2021-08-23] MEDS: oxyCODONE-APAP 5-325MG 1 EACH TAB PO PRN ×2 (07:29→13:20)
[2021-08-23] MEDS: LEVOTHYROXINE SODIUM SUBLINGUAL SCH (07:55)
[2021-08-23 08:18] VITALS: BP 122/78; TEMP 96.9
[2021-08-23] MEDS: IPRATROPIUM 0.5 MG/2.5 ML NEBU INHALATION SCH ×2 (08:19→12:34)
[2021-08-23] MEDS: SYMBICORT 160-4.5 MCG INHALER INHALATION SCH (08:19)
[2021-08-23 08:34] VITALS: PULSE 85
[2021-08-23 08:51] VITALS: RESP 20
[2021-08-23] MEDS: FERROUS SULFATE 325 MG TAB PO SCH (09:44)
[2021-08-23] MEDS: GABAPENTIN 300 MG CAP PO SCH (09:45)
[2021-08-23] MEDS: SULFAMETHOX-TMP 800-160MG 1 EACH TAB PO SCH (09:45)
[2021-08-23] MEDS: TOPIRAMATE 100 MG TAB PO SCH (09:46)
[2021-08-23] MEDS: PRIMIDONE 50 MG TAB PO SCH (09:47)
[2021-08-23] MEDS: BUPRENORPHINE 300 MCG SUBLINGUAL SCH (09:56)
[2021-08-23] MEDS: LACTATED RINGERS 1,000 ML IV SCH (10:42)
--- NOTE | 2021-08-23 11:27 | P.DS ---
Providers Date of admission: 08/14/21 14:25 Expected date of discharge: 08/23/21 Attending physician: Gricelda Sullivan DO Consults: 08/14/21 14:25 Consult Physician Routine Consulting Provider: Keon Steven Consult Reason/Comments: Right leg weakness, unable to ambulate Do you want consulting provider notified?: Yes 08/14/21 15:03 Consult Physician Routine Consulting Provider: Reji Levi Consult Reason/Comments: L4 compression fracture and right lower extremity weakness Do you want consulting provider notified?: Yes 08/15/21 11:43 Consult Physician Urgent Consulting Provider: Sumeet Steven Consult Reason/Comments: advanced COPD, chronic diaphragmatic paralysis, presurgical clearance Do you want consulting provider notified?: Yes 08/15/21 11:53 Consult Physician Routine Consulting Provider: Dwayne Martinez Consult Reason/Comments: 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 Do you want consulting provider notified?: Yes 08/15/21 15:58 Consult Physician Routine Consulting Provider: Deborah Torres Consult Reason/Comments: on bupenorphine chronically needing surgery Do you want consulting provider notified?: Yes Primary care physician: [facility] Course: Discharge Diagnosis: L4 compression fracture status post lumbar and sacral stabilization Acute blood loss anemia secondary to surgery Comment variable immunodeficiency Opioid dependence Constipation Leukocytosis of undetermined etiology possibly due to steroids. History of common variable immunodeficiency COPD with chronic hypoxic hypercapnic respiratory failure JAREN on CPAP Chronic diaphragmatic paralysis Hypothyroidism Chronic transaminitis: Stable Hypokalemia: Resolved Hospital Course: Patient is a 66-year-old female with a past medical history of opioid dependence, COPD on home O2 of 4 L, JAREN on CPAP at night, GERD, hypothyroidism who presents to the ED with complaints of right lower extremity weakness, gait instability and recurrent falls. Imaging revealed compression fracture of the lumbar spine. Patient was seen by orthopedic surgery and she had surgery done to stabilize her lumbar and sacral spine. After surgery patient had some acute blood loss anemia which required blood transfusion. She was also found to have iron deficiency so she was also started on IV iron infusion. Patient was scheduled for a second surgery. However family wanted to delay until patient went to rehab and recovered from first surgery. Patient was cleared by orthopedic surgery to go to rehab. At time of discharge patient's hemoglobin was stable. Patient also had leukocytosis. Infectious disease was consulted. Patient was started on broad-spectrum antibiotics. However all blood cultures including biopsy of her spine was negative. Infectious disease discontinued all antibiotics. Patient's WBC was trending down even after the antibiotics were discontinued. Please have patient check a CBC count after 5 days and fax results to Dr. Martinez. Patient is deemed stable for discharge. Please titrate patient off of Percocet since she has opioid dependence. Patient was started on steroids by orthopedic surgery. Please taper patient off of Decadron as prescribed. Patient deemed [facility] for [facility]. She'll need to follow-up with Dr. Mclaughlin and her PCP. 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 Patient Condition at Discharge: Fair Plan - Discharge Summary New Discharge Prescriptions: New dexAMETHasone ORAL [Hexadrol] 4 mg PO BID tab oxyCODONE-APAP 5-325MG [Percocet 5-325 mg] 1 each PO Q8HR PRN tab PRN Reason: Pain Gabapentin [Neurontin] 300 mg PO TID #0 cap Continue Topiramate [Topamax] 100 mg PO BID Levothyroxine Sodium [Tirosint-Carly] 200 mcg SL AC-BRKFST rOPINIRole HCL [Requip] 2 mg PO HS Rosuvastatin [Crestor] 10 mg PO HS Montelukast [Singulair] 10 mg PO HS Mirtazapine [Remeron] 15 mg PO HS Alendronate Sodium [Fosamax] 70 mg PO Q7D Budesonide/Formoterol Fumarate [Symbicort 160-4.5 Mcg Inhaler] 2 puff INHALATION RT-BID Albuterol Nebulized [Ventolin Nebulized] 2.5 mg INHALATION RT-QID PRN PRN Reason: Shortness Of Breath Primidone [Mysoline] 25 mg PO TID DULoxetine HCL [Cymbalta] 30 mg PO HS Sulfamethox-Tmp 800-160Mg [Bactrim DS 800-160 mg] 1 tab PO MOWEFR predniSONE 5 mg PO DAILY@1200 #0 Ipratropium Nebulized [Atrovent Nebulized 0.2 MG/ML] 0.5 mg INHALATION RT-QID PRN PRN Reason: Shortness Of Breath Fluticasone/Umeclidin/Vilanter [Trelegy Ellipta 200-62.5-25] 1 puff INHALATION RT-DAILY Hizentra Infusion 20 gm SQ Q14D Ferrous Sulfate [Iron (65 MG Elemental)] 325 mg PO DAILY EPINEPHrine (Auto Inject) [Epipen] 0.3 mg IM ONCE PRN PRN Reason: Anaphylaxis Buprenorphine HCl [Belbuca] 300 mcg BUCCAL BID Discontinued Gabapentin [Neurontin] 100 mg PO TID cap Diclofenac Sodium [Voltaren] 75 mg PO BID Baclofen 10 mg PO BID PRN PRN Reason: Muscle Spasm Discharge Medication List Albuterol Nebulized [Ventolin Nebulized] 2.5 mg INHALATION RT-QID PRN 06/28/20 [History] Alendronate Sodium [Fosamax] 70 mg PO Q7D 06/28/20 [History] Budesonide/Formoterol Fumarate [Symbicort 160-4.5 Mcg Inhaler] 2 puff INHALATION RT-BID 06/28/20 [History] Levothyroxine Sodium [Tirosint-Carly] 200 mcg SL AC-BRKFST 06/28/20 [History] Mirtazapine [Remeron] 15 mg PO HS 06/28/20 [History] Montelukast [Singulair] 10 mg PO HS 06/28/20 [History] Rosuvastatin [Crestor] 10 mg PO HS 06/28/20 [History] Topiramate [Topamax] 100 mg PO BID 06/28/20 [History] rOPINIRole HCL [Requip] 2 mg PO HS 06/28/20 [History] Primidone [Mysoline] 25 mg PO TID 09/05/20 [History] Ipratropium Nebulized [Atrovent Nebulized 0.2 MG/ML] 0.5 mg INHALATION RT-QID PRN 12/21/20 [History] Buprenorphine HCl [Belbuca] 300 mcg BUCCAL BID 08/14/21 [History] DULoxetine HCL [Cymbalta] 30 mg PO HS 08/14/21 [History] EPINEPHrine (Auto Inject) [Epipen] 0.3 mg IM ONCE PRN 08/14/21 [History] Ferrous Sulfate [Iron (65 MG Elemental)] 325 mg PO DAILY 08/14/21 [History] Fluticasone/Umeclidin/Vilanter [Trelegy Ellipta 200-62.5-25] 1 puff INHALATION RT-DAILY 08/14/21 [History] Hizentra Infusion 20 gm SQ Q14D 08/14/21 [History] Sulfamethox-Tmp 800-160Mg [Bactrim DS 800-160 mg] 1 tab PO MOWEFR 08/14/21 [History] Gabapentin [Neurontin] 300 mg PO TID #0 cap 08/23/21 [Rx] dexAMETHasone ORAL [Hexadrol] 4 mg PO BID tab 08/23/21 [Rx] oxyCODONE-APAP 5-325MG [Percocet 5-325 mg] 1 each PO Q8HR PRN tab 08/23/21 [Rx] predniSONE 5 mg PO DAILY@1200 #0 08/23/21 [Rx] Follow up Appointment(s)/Referral(s): Maikel Johnson MD [Primary Care Provider] - 08/29/21 11:30 am Reji Levi DO [Doctor of Osteopathic Medicine] - 2 Weeks [employer] [NON-STAFF] - (Please call [facility] if you have questions about your LSO back brace. ) Activity/Diet/Wound Care/Special Instructions: Patient's Belbuca sublingual from home is in our inpatient pharmacy - slip in chart - make sure she gets it when she goes home Spine Discharge and Recovery Instructions All medication refills should be obtained through your primary care doctor or your clinic spine surgeon. Please discuss prescription refills at your follow up appointment. Do not call the hospital for medication refills. Dressing: Leave your dressing in place for a total of 5 days post operatively. Then you may remove your dressing and leave open to air. Keep the area clean and if not able to keep area clean, then cover with sterile gauze and tape. Showering: You may shower 3 days after your procedure allowing soap and water to run over incision. Do not scrub. Do not soak. Blot dry. Follow up: Please confirm a follow up appointment with your surgeon 3 weeks post operatively. Please make an appointment to follow up with your PCP in 1-2 weeks after surgery for evaluation 3 phase, 3-week plan POST OP WEEKS 1-3 1. Lifting/carrying/pushing/pulling limited to less than 5 pounds. 2. Do not sit for longer than 15 minutes at one time. Get up and walk around. Prolonged sitting is NOT advised. If you lay down, see if you can tolerate laying down on you front (belly side) 3. Walk for periods of 15 minutes = 1 mile but no longer; do it multiple times times each day. 4. Ice your low back after activity. POST OP WEEKS 3-6 1. Lifting limited to less than 20 pounds. 2. Do not sit for longer than 30 minutes at a time. Frequently change positions. Use a sit-to stand workstation or take frequent breaks from sitting if you have returned to work. 3. Walk for 30 minutes each day. If possible, do these three or more times a day POST OP WEEKS 6+ At your 6-week appointment we will give you a physical therapy referral to focus on a core stabilization and strengthening program. You should also work on leg & buttock strengthening, hamstring & quadriceps stretching, and continue a low impact aerobic activity program such as swimming, walking, or riding a stationary bicycle. During the initial 6 weeks after your surgery, you are at the highest risk of re-injuring your spine. You should generally avoid BLTs (bending, lifting and twisting combination motions) and follow the above guidelines to reduce the chance of reinjury. You can anticipate post op appointments in our office at approximately 3 weeks and 6 weeks after your surgery. INCISION CARE: If your incision is not draining you do NOT need to cover it with a dressing. Keep your incision clean, dry and intact. In most cases, we apply skin glue, siobhan or sutures to the incision at the time of surgery. This will be like a crust or have the appearance of a scab and will fall off in time on its own. The stitches or siobhan need to be removed at 3 weeks post op appointment. You may begin to shower 3 days after surgery (this allows the glue to salas well). However, please avoid scrubbing the incision site or peeling off any of the skin glue. This will ensure optimal healing of your incision. Also, during this time avoid soaking the incision area in water - this includes swimming pools, hot tubs or baths. No ointments, lotions or oils on the incision until your surgeon allows. Leave siobhan, sutures or glue in place. Neurological dysfunction that comes on suddenly can also be a sign of a stroke. Below some common symptoms of a stroke are listed: B - balance difficulty such as sudden onset walking or leaning to one side - NEW E - eye problem such as sudden double vision or trouble seeing on one side - NEW F - Facial weakness or numbness on one side - NEW A - Arm or leg weakness or numbness on one side - NEW S - Slurred speech or difficulty with word finding - NEW T - Time is BRAIN! Call 911 as soon as you recognize these symptoms Diet: Consume a regular diet rich in vegetables and lean protein such as chicken or fish. You should consume in a ratio of approximately 20% fats|40% carbohydrates|40%protein. Vegetables, sweet potatoes, brown rice or quinoa are examples of good carbohydrates. Chips, white bread, cookies and sweets/sugar are examples of bad carbohydrates. Limit your bad carbs, go wild with good carbs. "Life's Simple 7" Guidelines as per [place] [employer] These will help you reclaim your life after surgery and mold capper helper in your recovery, keeping in mind your restrictions. (1) Get Active. Physical activity can help people lose weight, control high blood pressure and cholesterol, feel emotionally better, and sleep better. (2) Control Cholesterol. Avoid a diet high in saturated fat, trans fat, & cholesterol. Limit whole milk & cream, ice cream, butter, egg yolks, processed meats (like sausage and hot dogs), and fatty meats. Choose healthy foods that are low in saturated fat, trans fat and cholesterol which include: Fruits and vegetables, fiber rich grain products (like whole grain pasta and brown rice), lean meat such as chicken, fish, nuts, seeds, and legumes. (3) Eat Better. Eat small portions. Shop at the grocery with a list and do not stray from it. Tips for a healthy diet include: Limit sodium intake to less than 1500mg daily, avoid prepackaged, processed, and fast foods, choose a diet rich in fruits, vegetables, and whole grain, high fiber foods, and limit saturated & cholesterol in your diet. (4) Manage Blood Pressure. If you have high blood pressure, you should have a cuff at home so that you can check your blood pressure regularly. Be sure you have a good cuff. An arm one is generally better than a wrist one. Bring the cuff to a doctor's appointment to validate that the measurements that your cuff are taking are accurate. Take your blood pressure twice daily when you are sitting down and relaxing. Record the numbers in a log and bring this log with you to your doctors' appointments. (5) Lose Weight if your BMI is above 25. A healthy BMI is between 19-25. To calculate Your BMI, you may use a Standard BMI Calculator on the NIH BMI website: <www.nhlbi.nih.gov/guidelines/obesity/BMI/bmicalc.htm>. Weigh oneself daily. If you are overweight, set a goal to lose weight. A pound a week loss if needed is a good target. (6) Reduce Blood Sugar. Limit foods and liquids with "added sugars." (Added sugars include sucrose, fructose, glucose, maltose, dextrose, high fructose corn syrup, corn syrup, concentrated fruit juice and honey). (7) Stop Smoking. If you smoke, quitting smoking is one of the best things that you can do for your health. Smoking increases your risk of heart attack, stroke, and peripheral vascular disease, which is a build-up of plaque in your arteries. Please discard all the cigarettes and lighters in your house. Have a plan for what you will do when you have the urge to smoke. Direct and second- hand smoke shortens your life as well as the lives of your family, friends and others around you. For your health and the health of those around you, please consider quitting! Proper Bending Body Mechanics: Maintain a wide stance with one foot slightly in front of the other. Keep your back straight. Bend utilizing the strength in your hips and knees. Do not bend at the waist. Maintain the lifted object at your waist-level close to your body. Avoid lifting weight that causes immediately pain or pain anywhere in the body afterwards. Smoking/Nicotine If there was ever one thing that you could do to increase your overall health, decrease your risk of cardiovascular problems by about 39% the second you make the choice, it is to STOP SMOKING. Your body's most instant gratification is the second you stop smoking. We have all heard the studies, read the articles but it is true, smoking is extremely bad for your overall health, and moreover it is detrimental to your bone health. Nicotine, IN ANY FORM, kills bone cells, prevents your body from healing fractures, and significantly prolongs healing after surgery. In spine surgery specifically, it increases your risk of not healing your bones to create a fusion and increases your risk of having a revision surgery due to this up to 60%. I know it is hard. I know it feels impossible. But there are ways. Take control of your life. We are here to help you through it. And when you are ready, ask us and we can direct you to help if you desire. Use the START Plan to Quit Smoking (please visit the Helpguide.org website listed below for more information): S = Set a quit date. Choose a date within the next 2 weeks, so you have enough time to prepare without losing your motivation to quit. If you mainly smoke at work, quit on the weekend, so you have a few days to adjust to the change. T = Tell family, friends, and co-workers that you plan to quit. Let your friends and family in on your plan to quit smoking and tell them you need their support and encouragement to stop. Look for a quit emi who wants to stop smoking as well. You can help each other get through the rough times. A = Anticipate and plan for the challenges you'll face while quitting. Most people who begin smoking again do so within the first 3 months. You can help yourself make it through by preparing ahead for common challenges, such as nicotine withdrawal and cigarette cravings. R = Remove cigarettes and other tobacco products from your home, car, and work. Throw away all your cigarettes (no emergency pack!), lighters, ashtrays, and matches. Wash your clothes and freshen up anything that smells like smoke. Shampoo your car, clean your drapes and carpet, and steam your furniture. T = Talk to your doctor about getting help to quit. Your doctor can prescribe medication to help with withdrawal and suggest other alternatives. If you can't see a doctor, you can get many products over the counter at your local pharmacy or grocery store, including the nicotine patch, nicotine lozenges, and nicotine gum. Resources for Quitting Smoking: <https://www.[place].gov/documents/[facility]/Quit_Tobacco_Resources_for_patients _313480_7.pdf> Supplementation: Take recommended dosages of Vitamin D and Calcium to help fortify your bones and help them to heal. See your health maintenance packet for dosages and recomm ended levels. DVT/VTE prophylaxis: You will be given compression stockings from the hospital. Wear these daily for the first two weeks after surgery. You may take them off at night. You may be prescribed a medication to help thin your blood. Take this as directed. If you are not prescribed this medication, early and frequent ambulation has been shown to be the best prophylaxis to deep vein thrombosis and sequelae related to this event. Discharge Disposition: TRANSFER TO SNF/ECF Plan of Treatment: Please hav patient check a CBC in 5 days and fax results to Dr. Martinez (infectious disease)
--- NOTE | 2021-08-23 15:47 | P.PN ---
Subjective Progress Note Date: 08/23/21 Principal diagnosis: L4 fracture and question of osteomyelitis Patient is 66-year-old female presented to hospital with low back pain and has been diagnosed with the L4 burst fracture in this patient who is status post L2 to S1 stabilization with decompression L2 to L5 that was completed on 08/16/2021. On today's evaluation that is 08/23/2021, the patient denies any fever or any chills, the patient lower back pain is currently controlled with the current pain medication, the patient denies chest pain shortness of breath or cough , the patient denies nausea no vomiting no abdominal pain no diarrhea, feeling better currently waiting for penitentiary placement Objective - Vital Signs Vital signs: Vital Signs Temp 96.9 F L 08/23/21 08:00 Pulse 85 08/23/21 08:34 Resp 20 08/23/21 08:49 BP 122/78 08/23/21 08:00 Pulse Ox 98 08/23/21 08:00 Intake & Output 08/22/21 08/23/21 08/23/21 18:59 06:59 18:59 Intake Total 180 200 200 Output Total 500 Balance -320 200 200 Intake: Oral 180 200 200 Output: Urine 500 Uretheral ([place]) 500 Other: Voiding Method Indwelling Catheter Toilet Toilet - Exam GENERAL DESCRIPTION:[ Patient is awake and alert in no distress] HEENT: [Oral mucosa is dry and no pharyngeal erythema] RESPIRATORY SYSTEM: [Unlabored breathing decreased breath sounds at the base CARDIA VASCULAR SYSTEM: [S1-S2 regular rate and rhythm no murmur] GI: [Abdominal soft there's no tenderness no organomegaly] EXTREMITIES: [No edema feet] - Labs CBC & Chem 7: 08/22/21 04:58 08/21/21 03:33 Labs: Microbiology - Last 24 Hours (Table) 08/17/21 17:54 Blood Culture - Preliminary Blood No Growth after 120 hours Assessment and Plan (1) Leukocytosis Status: Acute Code(s): D72.829 - ELEVATED WHITE BLOOD CELL COUNT, UNSPECIFIED SNOMED Code(s): 283608169 (2) Compression fracture of L4 vertebra Status: Acute Code(s): S32.040A - WEDGE COMPRESSION FRACTURE OF FOURTH LUMBAR VERTEBRA, INIT SNOMED Code(s): 480016534 Plan: 1patient with compression fracture of the L4 vertebral with concern for possible Osteomyelitis patient is status post surgery and deep cultures which remains to be negative, patient is currently being monitored closely off antibiotic 2-patient with leukocytosis which could be more likely to steroid effect as the patient does not look toxic and is not running any fever, patient white count is trending down however in view of cultures being negative and no obvious focus of infection antibiotics were discontinued and there is no need for antibiotics on discharge Time with Patient: Less than 30
--- NOTE | 2021-08-28 09:31 | P.OP ---
Date of Procedure: 08/16/21 Preoperative Diagnosis: 1. L4 burst fracture 2. 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 LE weakness 4. Complex medical patient Postoperative Diagnosis: 1. L4 burst fracture 2. 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 LE weakness 4. Complex medical patient Procedure(s) Performed: 1. Exploration of fusion L5-S1 2. Removal of hardware L5-S1 3. open reduction internal fixation L4 burst fracture 4. L2-S1 posteriorlateral instrumented fusion 5. L4 partial corpectomy 6. L4 vertebral body biopsy 7. L2-L5 laminectomy decompression 8. Use of intraoperative neuromonitoring 9. Interpretation of intraoperative flouroscopy <1 hr. Implants: Reena screws 2 crosslinks Anesthesia: GETA Surgeon: Reji Levi Estimated Blood Loss (ml): 1,000 IV fluids (ml): 2,500 Urine output (ml): 950 Pathology: other (L3-4 disc; L4 vertebral body) Condition: stable Disposition: PACU Indications for Procedure: 66 yo female with long history of lung disease, opioid abuse, overdose, immune deficiency, hypothyroid and complex medical history presented after several falls from standing. Most of the history was put together some with patient and the rest with family and daughters. She has had several falls over the past several months and recently had a fall related to difficulty with balance and LE weakness. She has had a hx of UR and UI per her daughters for almost a year now and has c/o pain, weakness, numbness/tingling in her legs for about the same amount of time. She has not c/o genital numbness/tingling at this time. She was found to have UR on arrival and LE weakness. Imaging showed what appeared to be an L4 burst fracture that was A/C with possibility of infective process due to her lab work as well as fluid in the vertebral body. She has had two back surgeries in the past, one 30 years ago by unknown doctor and one by an in town surgeon at [facility] for a kyphoplasty. We discussed surgical options for the back and these were discussed with the patient and her DPOA her daughter. She was ammendable to surgical intervention. She was optimized and cleared for surgery by medicine. Description of Procedure: The patient was seen and examined in the preoperative area. All preoperative protocols were followed. Informed consent was obtained risks and benefits of the procedure were discussed at length. Risks including bleeding infection damage to the surrounding tissue and risk of reoperation were discussed with the patient. Risk of anesthesia up to and including was a discussed with the patient. These are outlined in the risk review. They were willing to accept these risks and all of the risks of surgery. The patient was given a weight- based dose of antibiotics in the form of vancomycin weight-based dose. The patient was seen and evaluated by the anesthesia team who deemed them fit for surgery. The site was marked, the patient was willing to proceed with the procedure. The patient was transferred to the operative suite by the Department of anesthesia. They were then drifted off to sleep by the department anesthesia and GETA was performed. The patient tolerated this well. Cevallos catheter was placed by nursing staff, atraumatically. Once confirmation of lines and ventilation the patient was transferred to a prone Shaun table very carefully. All bony prominences including wrists, elbows, axilla, chest, hips, and thighs, and feet were padded very well. Special attention was paid to the genitalia and these were padded accordingly. SCDs were placed on bilateral lower extremities and were connected. Arms were well padded and placed tucked at her side well- padded thumbs down. Once in position, again we confirmed good ventilation capabilities and that lines were running appropriately. The patient's lumbar spine was then exposed. 1010s were placed outlining the incision site. Standard alcohol was used to clean the incision site and allowed to dry. C-arm was used to biomark the patient and confirm level for incision which was marked with a skin marker. Operative briefing was performed with all teams and everyone in agreement to proceed. The patient was then prepped and draped in a normal sterile fashion. Timeout was then performed and all parties were in agreement with the procedure to be performed. Skin incision was made over the previously by a marked area dissection taken down to the lumbosacral fascia was identified this was then split midline. Subperiosteal dissection was then taken out over the facet joints and transverse process of L2 to S1. Once we had completed dissection we confirmed levels with fluoroscopy. We then decorticated the transverse processes of L2 through S1 and sacral Jayde high-speed bur. We then identified the previous hardware which is in place on the right-hand side of L5-S1 and facet type fusion. We explored this fusion and then removed the screw was in a suboptimal suboptimal position and was precluding us from placing our screws at S1 on the right-hand side. We Then proceeded with screw placement under fluoroscopic guidance from L2 through S1. Bilateral screws were placed L2-L3 as well as L5 and S1. This was done using a high-speed bur pedicle finder and tapped method. A ball-tip feeler was used in between each of the steps to confirm pedicle. Once screws were placed and confirm the placement on AP and lateral fluoroscopy. We then proceeded with cementation of screws we cemented the superior screws most cranially and the caudal screws in S1. There is no cement extravasation there were no vital sign changes during cementation. Once this was accomplished to proceed with decompression performed decompression from L3 down to S1 bilateral laminotomy and medial facetectomy from L3 to L4 and L5-S1. We then performed bilateral takedown of L4 with bilateral complete facetectomy foraminotomy and partial head pedicle resection. We then performed a partial corpectomy of L4 to decompress the anterior cord due to the retropulse fragment that was in position. A tamp was used to tamp for any loose pieces and a pituitary was used to remove portions of the bone. High- speed bur was then used to bur off any portions of bone that were causing compression. The nerve roots were protected and decompressed entirely throughout the case. Meticulous hemostasis was performed. We were then able to size and placed rods appropriately. The rods were then secured with set set caps and these were then final tightened position. We then placed 2 cross-links and final tightened these in position. I copiously irrigated with 3 L of antibiotic saline solution followed by 3 L of normal sterile saline. We then packed in autograft and allograft bone in the posterior lateral gutters for posterior lateral fusion bilaterally. Surgicel was placed over the dura. Meticulous hemostasis performed. Final images were taken which confirmed good placement of screws as well as hardware maintained maintenance of reduction of the fracture. We then placed a drain deep to the fascia which was sewn into place. Vancomycin was placed deep within the wound along with antibiotic beads. We did take cultures as well as pathologic samples of L4 vertebral body necessitates off prior to irrigation and during the corpectomy portion of the case. We then proceeded with layered closure the fascia was closed with #1 Vicryl followed by 0 PDS. The deep subcu tissue closed with 0 PDS the superficial subcu tissue closed with 2-0 PDS and the skin closed with skin siobhan. The wound edges approximated very well. He was then cleaned and sterilely dressed with an operative foam dressing 4 x 4 and Tegaderms. The patient was transferred back to their hospital bed atraumatically. Drain continued to hold suction and were in good position. Patient was then awakened and extubated by the department of anesthesia having tolerated the procedure very well with no complications. They were transferred to the postoperative care unit in stable condition. This case took 100% longer than expected secondary to the patient's comorbidities, BMI, complexity of the case. (Mod 22)
== END 2021-08-23 13:28 | DRG 460 ==
LOC: EC 10:34 → 5NMEDONC 14:25 → 3SCARD 08-16 19:50 → 4SSUR 08-20 18:48
PROVIDERS: ADMIT Internal Medicine; ATTEND Internal Medicine
PROC: 01NB0ZZ Release Lumbar Nerve, Open Approach (ICD-10-PCS; principal; 2021-08-14)
PROC: 0QB00ZX Excision of Lumbar Vertebra, Open Approach, Diagnostic (ICD-10-PCS; principal; 2021-08-14)
PROC: 0SG3071 Fusion of Lumbosacral Joint with Autologous Tissue Substitute, Posterior Approach, Posterior Column, Open Approach (ICD-10-PCS; principal; 2021-08-14)
PROC: 0QP004Z Removal of Internal Fixation Device from Lumbar Vertebra, Open Approach (ICD-10-PCS; principal; 2021-08-14)
PROC: 4A1104G Monitoring of Peripheral Nervous Electrical Activity, Intraoperative, Open Approach (ICD-10-PCS; principal; 2021-08-14)
PROC: 0SG1071 Fusion of 2 or more Lumbar Vertebral Joints with Autologous Tissue Substitute, Posterior Approach, Posterior Column, Open Approach (ICD-10-PCS; principal; 2021-08-14)
PROC: 00NY0ZZ Release Lumbar Spinal Cord, Open Approach (ICD-10-PCS; principal; 2021-08-14)
PROC: 30233N1 Transfusion of Nonautologous Red Blood Cells into Peripheral Vein, Percutaneous Approach (ICD-10-PCS; 2021-08-16)
PROC: 05HA33Z Insertion of Infusion Device into Left Brachial Vein, Percutaneous Approach (ICD-10-PCS; 2021-08-19 11:40)
DX: S32.041A Stable burst fracture of fourth lumbar vertebra, initial encounter for closed fracture (principal); D80.1 Nonfamilial hypogammaglobulinemia; J96.12 Chronic respiratory failure with hypercapnia; J96.11 Chronic respiratory failure with hypoxia; D83.9 Common variable immunodeficiency, unspecified; E27.40 Unspecified adrenocortical insufficiency; J98.11 Atelectasis; D62 Acute posthemorrhagic anemia; J98.6 Disorders of diaphragm; E86.0 Dehydration; J44.9 Chronic obstructive pulmonary disease, unspecified; F11.21 Opioid dependence, in remission; F19.11 Other psychoactive substance abuse, in remission; Z20.822 Contact with and (suspected) exposure to COVID-19; M48.061 Spinal stenosis, lumbar region without neurogenic claudication; M47.26 Other spondylosis with radiculopathy, lumbar region; G89.4 Chronic pain syndrome; R29.6 Repeated falls; E87.6 Hypokalemia; G47.00 Insomnia, unspecified; K59.00 Constipation, unspecified; D50.9 Iron deficiency anemia, unspecified; E03.9 Hypothyroidism, unspecified; G47.33 Obstructive sleep apnea (adult) (pediatric); K21.9 Gastro-esophageal reflux disease without esophagitis; E78.5 Hyperlipidemia, unspecified; G25.81 Restless legs syndrome; K44.9 Diaphragmatic hernia without obstruction or gangrene; G25.0 Essential tremor; R73.03 Prediabetes; T38.0X5A Adverse effect of glucocorticoids and synthetic analogues, initial encounter; R74.01 Elevation of levels of liver transaminase levels; R74.8 Abnormal levels of other serum enzymes; R59.0 Localized enlarged lymph nodes; R32 Unspecified urinary incontinence; R26.89 Other abnormalities of gait and mobility; H91.90 Unspecified hearing loss, unspecified ear; Z99.81 Dependence on supplemental oxygen; Z79.83 Long term (current) use of bisphosphonates; Z79.51 Long term (current) use of inhaled steroids; Z79.52 Long term (current) use of systemic steroids; Z79.899 Other long term (current) drug therapy; Z91.81 History of falling; Z87.01 Personal history of pneumonia (recurrent); Z87.81 Personal history of (healed) traumatic fracture; Z85.828 Personal history of other malignant neoplasm of skin; Z90.89 Acquired absence of other organs; Z90.49 Acquired absence of other specified parts of digestive tract; Z87.19 Personal history of other diseases of the digestive system; Z87.42 Personal history of other diseases of the female genital tract; Z90.710 Acquired absence of both cervix and uterus; Z96.652 Presence of left artificial knee joint; Z87.2 Personal history of diseases of the skin and subcutaneous tissue; Z87.39 Personal history of other diseases of the musculoskeletal system and connective tissue; Z77.22 Contact with and (suspected) exposure to environmental tobacco smoke (acute) (chronic); Z98.1 Arthrodesis status; Z98.890 Other specified postprocedural states; W08.XXXA Fall from other furniture, initial encounter; Y92.008 Other place in unspecified non-institutional (private) residence as the place of occurrence of the external cause; Z80.3 Family history of malignant neoplasm of breast; Z88.8 Allergy status to other drugs, medicaments and biological substances; Z88.6 Allergy status to analgesic agent; Z88.1 Allergy status to other antibiotic agents; Z91.030 Bee allergy status; Z91.041 Radiographic dye allergy status; Z88.0 Allergy status to penicillin; Z91.013 Allergy to seafood; Z80.1 Family history of malignant neoplasm of trachea, bronchus and lung; Z80.9 Family history of malignant neoplasm, unspecified
CPT/HCPCS: 36410; 36415; 36430; 36600; 70450; 71045; 72100; 72110; 72128; 72131; 72148; 72156; 72157; 72170; 76937; 80048; 80053; 80202; 80306; 81003; 82553; 82728; 82805; 83540; 83550; 83735; 84100; 84145; 84439; 84443; 84480; 85025; 85027; 85384; 85610; 85652; 85730; 86140; 86850; 86900; 86901; 86920; 87040; 87070; 87075; 87102; 87205; 87635; 88304; 88307; 88311; 93005; 94640; 94760; 99285

== ENCOUNTER 2021-10-11 13:12 | Day surgery (SDC) | payer MEDICARE ==
[2021-10-08 14:34] VITALS: BMI 28.3
--- NOTE | 2021-10-11 07:11 | P.HPOR ---
History of Present Illness H&P Date: 10/03/21 Chief Complaint: Delayed wound healing [facility] Date of :[birth year] Age: 66 year Height: 5'6" Weight: 147 lbs BMI: 23.73 kg/m2 Occupation: Retired VAS: 5 CHIEF COMPLAINT: 2 weeks s/p L2-S1 stabilization for L4 burst fracture DOI:Acute on chronic DOS:08/16/2021, prior lumbar surgery 35 years ago Post Op Week: 6 weeks SUBJECTIVE: Patient presents to the office for a recheck of her lumbar spine following her L2-S1 decompression and fusion. Since the time of the last appointment she reports that she has seen improvements to her strength and muscle wasting. Additionally she does report that she has seen improvements to her pain and numbness/tingling. Her only concern is some continued drainage about the incision. She denies any fevers or chills at this time. Otherwise she is taking Gabapentin, Baclofen, and Oxycodone all with relief of her symptoms. She reports that she has been in PT and doing home exercises daily with improvements to her symptoms. Patient denies any bladder or bowel retention/incontinence, no perineal numbness/tingling, and is ambulatory with the use of a walker. HPI: Patient last presented on 09/05/2021 for a post-operative appointment following theirL2-S1 decompression and fusion. Since the time of the operation the patient states that she has been residing at the [facility] for rehabilitation. With this she reports that she is doing daily PT with improvements to he pain and strength. Overall she does report posterior lumbar pain about the surgical site that increases with ambulation but reports that this is improved to before the operation. She denies any numbness or tingling into the lower extremities any denies any incision concerns. Regarding medications the patient reports taking OXycodone, Gabapentin, Diclofenac, and Baclofen all with relief of her symptoms as they flare up. Additionally the patient does present to the office today using oxygen and ambulating with both a wheelchair and walker. Otherwise she denies any concerns with the operation. The patient's past medical history; past surgical history; family history; medicines; allergies and social history have been reviewed and are as stated elsewhere in the chart. 14 points review of systems completed and as stated in HPI, all other systems reviewed are negative. Review of Systems 14 points review of systems completed and as stated in HPI, all other systems reviewed are negative. Past Medical History Past Medical History: Asthma, Cancer, COPD, GERD/Reflux, Hyperlipidemia, Pneumonia, Respiratory Disorder, Sleep Apnea/CPAP/BIPAP, Thyroid Disorder Additional Past Medical History / Comment(s): hx migraines, "diaphragm issues", " respiratory issues" with home oxygen at 4L/NC continuous, JAREN but does not tolerate device, anemia, hiatal hernia,, chronic low back pain, DDD, osteoporosis, hx fractured vertabra x2, chronic pain syndrome, RLS, essential tremors,, urine incontinence-uses depends, on rx for infected wound on lower back History of Any Multi-Drug Resistant Organisms: None Reported Past Surgical History: Adenoidectomy, Appendectomy, Back Surgery, Breast Surgery, Cholecystectomy, Hysterectomy, Joint Replacement, Tonsillectomy Additional Past Surgical History / Comment(s): R breast bx, bilateral breast reduction/precancer, back fusion with hardware, kyphoplasty 07/2021 , L knee arthroscopy/ACL repair, total L knee arthroplasty, epidural back injections, colonoscopy, hemorrhoidectomy. right chest I&D of hematoma. I&D rt thigh Past Anesthesia/Blood Transfusion Reactions: Family History of Problems w/ Anesthesia, Motion Sickness Additional Past Anesthesia/Blood Transfusion Reaction / Comment(s): "brother was awake during whole surgery" Smoking Status: Second hand smoke exposure - Past Family History Mother Family Medical History: Cancer Additional Family Medical History / Comment(s): Metastatic breast cancer. Father Family Medical History: Cancer Additional Family Medical History / Comment(s): Lung cancer Medications and Allergies Home Medications Medication Instructions Recorded Confirmed Type Albuterol Nebulized [Ventolin 2.5 mg INHALATION RT-QID PRN 06/28/20 10/08/21 History Nebulized] Alendronate Sodium [Fosamax] 70 mg PO Q7D 06/28/20 10/08/21 History Mirtazapine [Remeron] 15 mg PO HS 06/28/20 10/08/21 History Montelukast [Singulair] 10 mg PO HS 06/28/20 10/08/21 History Topiramate [Topamax] 100 mg PO HS 06/28/20 10/08/21 History rOPINIRole HCL [Requip] 2 mg PO HS 06/28/20 10/08/21 History Buprenorphine HCl [Belbuca] 300 mcg BUCCAL BID 08/14/21 10/08/21 History EPINEPHrine (Auto Inject) [Epipen] 0.3 mg IM ONCE PRN 08/14/21 10/08/21 History Ferrous Sulfate [Iron (65 MG 325 mg PO DAILY 08/14/21 10/08/21 History Elemental)] Fluticasone/Umeclidin/Vilanter 1 puff INHALATION RT-DAILY 08/14/21 10/08/21 History [Trelegy Ellipta 200-62.5-25] Gabapentin [Neurontin] 300 mg PO TID #0 cap 08/23/21 10/08/21 Rx predniSONE 5 mg PO DAILY@1200 #0 08/23/21 10/08/21 Rx Atorvastatin [Lipitor] 20 mg PO DAILY 10/08/21 10/08/21 History Baclofen 10 mg PO DAILY 10/08/21 10/08/21 History Diclofenac Sodium [Voltaren] 75 mg PO DAILY 10/08/21 10/08/21 History Levothyroxine Sodium [Tirosint-Carly] 200 mcg PO DAILY 10/08/21 10/08/21 History Primidone [Mysoline] 25 mg PO TID 10/08/21 10/08/21 History Sulfamethoxazole/Trimethoprim 1 each PO MOWESA 10/08/21 10/08/21 History [Bactrim DS 800-160 mg] Allergies Allergy/AdvReac Type Severity Reaction Status Date / Time adhesive tape Allergy Rash/Hives Verified 08/16/21 12:05 aspirin Allergy Rash/Hives Verified 10/08/21 14:11 bee pollen Allergy Anaphylaxis Verified 10/08/21 14:11 cefdinir [From Omnicef] Allergy Anaphylaxis Verified 10/08/21 14:11 clarithromycin [From Biaxin] Allergy Anaphylaxis Verified 10/08/21 14:11 ibuprofen [From Advil] Allergy Anaphylaxis Verified 10/08/21 14:11 Iodinated Contrast Media Allergy Anaphylaxis Verified 10/08/21 14:11 [Iodinated Contrast Media - IV Dye] iodine Allergy Anaphylaxis Verified 10/08/21 14:11 omalizumab [From Xolair] Allergy Anaphylaxis Verified 10/08/21 14:11 Penicillins Allergy Dyspnea Verified 10/08/21 14:11 prochlorperazine edisylate Allergy Rash/Hives Verified 10/08/21 14:11 [From Compazine] prochlorperazine maleate Allergy Rash/Hives Verified 10/08/21 14:11 [From Compazine] shellfish derived Allergy Anaphylaxis Verified 10/08/21 14:11 Physical Examination Osteopathic Statement: *. No significant issues noted on an osteopathic structural exam other than those noted in the History and Physical/Consult. Patient is alert and oriented 3 appears well-nourished well-hydrated is in no acute distress. They does not appear septic. On exam the patient has no tenderness to palpation of her thoracic or lumbar spine. There is no edema or ballottement sign. Incisions heaing, there is evidence of delayed healing about the incision in the middle that is about 3 cm in length and 1 cm in width that appears ulcerative in nature due to pt not being as ambulature lately with mild drainage. patient denies any TTP. No purulence. Patient is ambulatory with both a walker. There is some improving weakness regarding the left lower extremity that is limiting her ability to ambulate. Additionally there is improved quadriceps atrophy about the left lower extremity. Overall she is improved from when she was at the time of the last appointment. we did change the bandage and clean the surgical site yesterday. Lower extremities with 4 out of 5 strength in all major muscle groups Showing signs of improvement with more motion but still weak Upper extremities show 4/5 strength in all major muscle groups. There is FROM that is painless of the b/l UE and LE in all major joints. They are intact to light touch sensation in L2 to S1 nerve distribution as well as the C5-T1 distribution. DTRs 2/4 all upper and lower Patient has palpable dorsalis pedis was posterior tibial pulses. Compartments are soft and compressible. Patient shows a negative Homans, Jorgensen's, negative Babinski's negative clonus bilaterally. negative straight leg raise bilaterally. No tensioning signs. Cranial nerves II through XII are grossly intact. Overall alignment is well-maintained in the sagittal coronal planes. She show some improvement to her chronic muscle wasting of her L thigh Results XRay taken on 09/05/21 of Lumbar, Pelvis was reviewed by Dr. Jeff and indicates: Hardware intact, screws in good position with no sign of loosening, migration, or failure of components. Overall good coronal alignment with good sagittal balance. Labs pending Assessment and Plan Assessment: 1. L4 burst fracture 2. 2 weeks s/p L2-S1 decompression and stabilization with L4 partial corpectomy and ORIF 3. Delayed wound healing with ulcerative dehiscence Plan: Spine Surgery Risk Review Beata beverly is a 66-year-old female presenting for evaluation of postoperative check status post stabilization for L4 burst fracture. It was my pleasure to have seen and examined Beata and her daughter. In our visit today we have had a chance to go over subjective complaints, physical examination findings and treatments including the natural course history without intervention and various interventional options. The patients imaging demonstrates stable postoperative changes with no interval hardware changes. On physical exam, Beata demonstrates 2 cm wound ulceration and dehiscence centrally within the incision. Cranial and caudal portions of the incision have healed well is no purulent drainage however the wound edges are not approximated this area very well.. I have explained to the patient that as their condition progresses it will cause further neurological deficits and eventual paralysis. Based on the patients imaging, physical exam, and the rapid progression and disabling nature of their symptoms, at this time I recommend surgery in the form or a: Excisional debridement with primary closure lumbar spine. I discussed the risk and benefits of this procedure at length with Beata. The patient and her daughter who is in the room with her agreed to considered pursuing the procedure abovementioned. Prior to surgery, she should follow up with her PCP (Cardio, ID, IM etc) for clearance. Questions were invited and answered, and the patient wishes to proceed as outlined below. Currently, I am recommendin. Excisional debridement with primary closure lumbar spine wound 2. Follow up with PCP for surgical clearance 3. Review of surgical risks and benefits as well as an educational packet on the proposed surgical procedure. Risks: All surgical procedures come with inherent risks, including those related to positioning, anesthesia, intraoperative findings, and postoperative complications. It is important to understand that surgery does not come with any guarantee of a successful outcome as complications and adverse events are always possible. The patient was given a handout in office today discussing the surgical procedure and risks associated with the intervention, both of which were discussed with the patient. These risks include but are not limited to the following: * Experiencing same, different or even worse symptoms in back, neck, arms, or legs compared to before surgery. * Requiring further surgery or other forms of treatment presently or at some time in the future at same or other levels of the intended spine surgery. * On an extreme but fortunately relatively rare basis severe complication such as blindness, stroke, heart attack, temporary and/or permanent nerve injury, paralysis, coma, or may occur, sometimes without known explanation. * Surgical complications may include but are not limited to risk of infection, fluid accumulation in the surgical dissection site, including a seroma or hematoma, that requires additional surgery, wound drainage, bleeding, new numbness or weakness, vision changes/loss, spinal fluid leakage, non-healing and/or infected incision, headaches, difficulty or inability to swallow, hoarseness, hemopneumothorax, pneumothorax, impotence, retrograde ejaculation, vaginal dryness; injury to nerves, spinal cord, blood vessels, lymphatics or other vital organs (i.e., bowel injury, injury to the great vessels); heterotopic bone formation; complications related to the hardware such as screws, rods, cages including misplaced hardware, device failure, instrumentation at the wrong spine level, hardware fracture/breakage, or hardware loosening; vertebral failure of the spinal column above or below the newly placed hardware; retained surgical instrumentations or devices and the need for further surgery. * Medical risks of the planned spine surgery include but are not limited to generalized Infections to the whole body or local areas outside of the surgical site (sepsis), heart attack, bleeding, anaphylaxis, meningitis, seizure, epilepsy, hearing loss, burn hansen, laceration of the head or other areas of the body, bruising, hypersensitivity of the skin, bladder over distension; allergic reaction; shoulder injury related to positioning; fat, blood and air clots to other areas of the body like heart, lungs, brain; failure of internal organs such as lungs, kidneys, liver and excessive bleeding. If blood transfusions are necessary, note that transfusions may cause intolerance reactions such as anaphylaxis or other complex reactions. * Despite best efforts, the results of spine surgery might not heal in terms of bone, soft tissues such as skin, fascia, ligaments, and joints. Additionally, in order to achieve best possible results, spine surgery may be carried out beyond the initially planned levels and involve decompression, fusion including insertion of hardware at levels other than the original intended area of surgical interest change some portions of the procedure in order to ensure the best possible outcomes. * With spine surgery and spinal fusion, there are different off label uses of instrumentation (devices, implants and hardware) as well as biological substances (bone morphogenic proteins, demineralized bone matrix) as well as using extra bone from allograft sources (i.e. cadaver bone) or autograft (iliac crest bone, ribs, or the spine itself). The patient has been given information about these practices and their inherent risks and benefits. The patient has had a chance to review all the listed information, has been given print outs detailing this information, and has had all his/her questions answered to their satisfaction. It was my pleasure to have seen and examined Beata beverly. In our visit today we have had a chance to go over my understanding of our patient's current condition, the natural course history without intervention and various interventional options. Questions were invited and answered, and the patient wishes to proceed as outlined above. I have seen and examined the patient for 25 minutes and we have spent more than 50% of the time in repeat and detailed counseling about the patient's condition, its natural course history with out and as much as can be predicted with surgery and re-review of various surgical treatment options. In conclusion, Beata beverly and her daughter requested we proceed with the above suggested surgery and are willing to accept risks and limitations of the suggested surgery as nature of the disease process and our best attempts at treatment for the condition. Thank you again for allowing us to be part of your patient's care. Please don't hesitate to contact me if you have any further questions. Signed and authenticated by: Reji Ang [facility] [address] [id number]
[~2021-10-11 13:12] MED LIST changes: -CLINDAMYCIN 900 MG in DEXTROSE 5% IN WATER 50 ML IVPB PRN; +DEXAMETHASONE SOD PHOSPHATE 4 MG/ML 1 ML VIAL IV ONE; +HYDROmorphone 0.5 MG/0.5 ML SYRINGE IVP PRN; +LACTATED RINGERS 1,000 ML IV SCH; -LIDOCAINE 1% (10MG/ML) FOR IV START INTRADERMA PRN; +MIDAZOLAM 2 MG/2 ML VIAL IV PRN; +ONDANSETRON 4 MG/2 ML VIAL IVP ONE; +VANCOMYCIN 1,000 MG in SODIUM CHLORIDE 0.9% 250 ML IVPB PRN
[2021-10-11 14:11] LABS: Glucose,Whole Blood 101 mg/dL (75-99)
[2021-10-11] MEDS ORDERED: HYDROCORTISONE SUCCINATE 100 MG/2 ML VIAL IV ONE (14:20)
--- NOTE | 2021-10-11 15:11 | P.PN ---
Progress Note - Text Progress Note Date: 10/11/21 History and Physical UPDATE I have seen and examined the patient and reviewed the history and physical. There appear to be no significant changes in the patient's current medical status as outlined in the current History and Physical.
[2021-10-11] MEDS ORDERED: LIDOCAINE 1% INJ 10MG/ML (20 ML MDV) ONE (15:13)
[2021-10-11] MEDS ORDERED: PROPOFOL 10 MG/ML 20 ML VIAL IV ONE (15:13)
[2021-10-11] MEDS ORDERED: fentaNYL (PF) 50 MCG/ML 2 ML AMP ONE (15:13)
[2021-10-11] MEDS ORDERED: SUCCINYLCHOLINE CHLORIDE 100 MG/5 ML SYR IV ONE (15:13)
[2021-10-11] MEDS ORDERED: LIDOCAINE 0.5%-EPI 1:200,000 50 ML VIAL SQ ONE (15:54)
[2021-10-11] MEDS ORDERED: BUPIVACAINE (PF) 0.25% 30 ML VIAL SQ ONE (15:54)
[2021-10-11] MEDS ORDERED: VANCOMYCIN 1,000 MG VIAL MISCELLANE ONE (15:58)
[2021-10-11 16:33] VITALS: RESP 16; TEMP 97.8
--- NOTE | 2021-10-11 16:34 | P.PN ---
Progress Note - Text Progress Note Date: 10/11/21 Postop: . Patient seen and examined they are doing well. Their pain is under control at this time. They are moving all 4 extremities without any issues. Vital signs are stable.. They are currently recovering and will be transferred to home once deemed stable by the PACU team and anesthesiologist. No Other issues at this time they deny fever chills shortness of breath or chest pain.
--- NOTE | 2021-10-11 16:40 | P.OP ---
Date of Procedure: 10/11/21 Preoperative Diagnosis: 1. Delayed wound closure with dehiscence lumbar spine Postoperative Diagnosis: 1. Delayed wound closure with dehiscence lumbar spine Procedure(s) Performed: 1. Incision and drainage with excisional debridement lumbar spine 5x5x2 cm using the following -Knife used to remove and excise necrotic skin subcutaneous tissue and fat -Curett used to scrape subcutaneous tissue 2. 3 layered complex closure 5 x 5 x 2 cm lumbar spine Implants: none Anesthesia: GETA Surgeon: Reji Levi Director Of Marketing #1: Deidre Toney (Was present for the entire case and assisted with positioning opening the debridement closure and dressing) Estimated Blood Loss (ml): 10 IV fluids (ml): 500 Urine output (ml): 0 Pathology: other (Lumbar superficial and lumbar mid cultures) Condition: stable Disposition: PACU Indications for Procedure: Beata beverly is a 66-year-old female presenting for evaluation of postoperative check status post stabilization for L4 burst fracture. It was my pleasure to have seen and examined Beata and her daughter. In our visit today we have had a chance to go over subjective complaints, physical examination findings and treatments including the natural course history without intervention and various interventional options. The patients imaging demonstrates stable postoperative changes with no interval hardware changes. On physical exam, Beata demonstrates 2 cm wound ulceration and dehiscence centrally within the incision. Cranial and caudal portions of the incision have healed well is no purulent drainage however the wound edges are not approximated this area very well.. I have explained to the patient that as their condition progresses it will cause further neurological deficits and eventual paralysis. Based on the patients imaging, physical exam, and the rapid progression and disabling nature of their symptoms, at this time I recommend surgery in the form or a: Excisional debridement with primary closure lumbar spine. I discussed the risk and benefits of this procedure at length with Beata. The patient and her daughter who is in the room with her agreed to considered pursuing the procedure abovementioned. Prior to surgery, she should follow up with her PCP (Cardio, ID, IM etc) for clearance. Questions were invited and answered, and the patient wishes to proceed as outlined below. Currently, I am recommendin. Excisional debridement with primary closure lumbar spine wound 2. Follow up with PCP for surgical clearance 3. Review of surgical risks and benefits as well as an educational packet on the proposed surgical procedure. Description of Procedure: The patient was seen and examined in the preoperative area. All preoperative protocols were followed. Informed consent was obtained risks and benefits of the procedure were discussed at length. Risks including bleeding infection damage to the surrounding tissue and risk of reoperation were discussed with the patient. Risk of anesthesia up to and including was a discussed with the patient. These are outlined in the risk review. They were willing to accept these risks and all of the risks of surgery. The patient was given a weight- based dose of antibiotics in the form of vancomycin weight-based dose. The patient was seen and evaluated by the anesthesia team who deemed them fit for surgery. The site was marked, the patient was willing to proceed with the procedure. The patient was transferred to the operative suite by the Department of anesthesia. They were then drifted off to sleep by the department anesthesia and GETA was performed. The patient tolerated this well. Once confirmation of lines and ventilation the patient was transferred to a prone Shaun table very carefully. All bony prominences including wrists, elbows, axilla, chest, hips, and thighs, and feet were padded very well. Special attention was paid to the genitalia and these were padded accordingly. SCDs were placed on bilateral lower extremities and were connected. Arms were well padded and placed on arm boards up and out in the 90/90 position. Once in position, again we confirmed good ventilation capabilities and that lines were running appropriately. The patient's lumbar spine was then exposed. 1010s were placed outlining the incision site. Standard alcohol was used to clean the incision site and allowed to dry. C-arm was used to biomark the patient and confirm level for incision which was marked with a skin marker. Operative briefing was performed with all teams and everyone in agreement to proceed. The patient was then prepped and draped in a normal sterile fashion. Timeout was then performed and all parties were in agreement with the procedure to be performed. Skin knife was used to make an elliptical excision of the necrotic tissue superficial culture was taken skin knife was then used to extend and excise any necrotic skin soft tissue and fat be admitted deep culture was then taken to the fascia was intact there was no violation no drainage no purulence. This measured 5 x 5 x 2 cm. We then irrigated copiously with 6 L of irrigant 3 L with antibiotic 3 L without curet was used to scrape and freshen edges. We then placed vancomycin deep within the wound and performed a 3 layered complex closure first we closed the deep subcu tissue with 0 PDS the superficial subcu tissue with 2-0 PDS and the skin with 2-0 nylon in a horizontal mattress fashion. The wound edges approximated very well the wound was then cleaned and dressed sterilely with an operative foam dressing. The patient was transferred back to their hospital bed atraumatically. Patient was then awakened and extubated by the department of anesthesia having tolerated the procedure very well with no complications. They were transferred to the postoperative care unit in stable condition.
[2021-10-11] MEDS ORDERED: HYDROcodone/APAP 5-325MG 1 EACH TAB ONE (17:34)
[2021-10-11] MEDS ORDERED: HYDROcodone/APAP 5-325MG 1 EACH TAB PO ONE (17:35)
[2021-10-11 17:37] VITALS: PULSE 81
[2021-10-11 17:41] VITALS: BP 108/53
== END 2021-10-11 18:17 ==
LOC: OR 13:12
PROVIDERS: ATTEND Orthopaedic Surgery
DX: T81.31XA Disruption of external operation (surgical) wound, not elsewhere classified, initial encounter (principal); T81.89XA Other complications of procedures, not elsewhere classified, initial encounter; Z87.81 Personal history of (healed) traumatic fracture; J44.9 Chronic obstructive pulmonary disease, unspecified; K21.9 Gastro-esophageal reflux disease without esophagitis; E78.5 Hyperlipidemia, unspecified; Z87.01 Personal history of pneumonia (recurrent); G47.33 Obstructive sleep apnea (adult) (pediatric); E07.9 Disorder of thyroid, unspecified; G43.909 Migraine, unspecified, not intractable, without status migrainosus; D64.9 Anemia, unspecified; K44.9 Diaphragmatic hernia without obstruction or gangrene; G89.4 Chronic pain syndrome; G25.81 Restless legs syndrome; G25.0 Essential tremor; R32 Unspecified urinary incontinence; Z90.49 Acquired absence of other specified parts of digestive tract; Z90.710 Acquired absence of both cervix and uterus; Z98.890 Other specified postprocedural states; Z96.652 Presence of left artificial knee joint; Z98.1 Arthrodesis status; Z77.22 Contact with and (suspected) exposure to environmental tobacco smoke (acute) (chronic); Z80.1 Family history of malignant neoplasm of trachea, bronchus and lung; Z80.3 Family history of malignant neoplasm of breast; Z99.81 Dependence on supplemental oxygen; F11.11 Opioid abuse, in remission; Z79.83 Long term (current) use of bisphosphonates; Z79.890 Hormone replacement therapy; Z79.891 Long term (current) use of opiate analgesic; Z79.51 Long term (current) use of inhaled steroids; Z79.899 Other long term (current) drug therapy; Z88.6 Allergy status to analgesic agent; Z91.041 Radiographic dye allergy status; Z88.0 Allergy status to penicillin; Z91.013 Allergy to seafood; Z88.8 Allergy status to other drugs, medicaments and biological substances; Z91.048 Other nonmedicinal substance allergy status; Z91.09 Other allergy status, other than to drugs and biological substances
CPT/HCPCS: 87070; 87205; 87075; 11042; 11045; J3370; J1720; J2405; J2001; J3010; J0330; J2704; J1170

== ENCOUNTER → 2022-04-29 | Outpatient (CLI) | payer MEDICARE ==
[2022-04-29 20:11] LABS: Immunoglobulin E 6.78 IU/mL (0.00-114.00)
[2022-04-29 21:29] LABS: Immunoglobulin M 87.6 mg/dL (40.0-280.0)
[2022-04-29 21:31] LABS: HCT 43.4 % (37.2-46.3); HGB 12.8 g/dL (12.0-15.0); MCH 29.4 pg (27.0-32.0); MCHC 29.5 g/dL (32.0-37.0); MCV 99.5 fL (80.0-97.0); Mean Platelet Volume 10.9 fL (9.5-12.2); Platelet Count 242 X 10*3/uL (140-440); RBC 4.36 X 10*6/uL (4.10-5.20); RDW 16.7 % (11.5-14.5)
[2022-04-29 21:32] LABS: Basophils # (M) 1.57 X 10*3/uL (0.00-0.10); Eosinophils # (M) 1.57 X 10*3/uL (0.04-0.35); Lymphocytes # (M) 3.13 X 10*3/uL (0.90-5.00); Metamyelocytes % 6 % (0-0); Monocytes # (M) 3.92 X 10*3/uL (0.20-1.00); Myelocytes % 4 % (0-0); Neutrophils # (M) 60.34 X 10*3/uL (2.00-8.90); Neutrophils % (M) 77 %; RBC Morphology NORMAL
[2022-04-30 10:20] LABS: WBC 78.36 X 10*3/uL (4.50-10.00)
[2022-04-30 10:25] LABS: IgG Subclass 1 502.1 mg/dL (382.40-928.60); IgG Subclass 2 106.2 mg/dL (241.80-700.30); IgG Subclass 3 60.4 mg/dL (21.82-176.00); IgG Subclass 4 19.9 mg/dL (3.92-86.40)
[2022-04-30 13:14] LABS: T4/T8 Ratio (CD4:CD8) 0.7 (1.0-3.7)
== END | disposition home or self-care (01) ==
LOC: LABWHC1 11:17
PROVIDERS: ATTEND Allergy & Immunology
DX: U07.1 COVID-19 (principal); E55.9 Vitamin D deficiency, unspecified; T78.40XA Allergy, unspecified, initial encounter; D84.9 Immunodeficiency, unspecified; M19.90 Unspecified osteoarthritis, unspecified site
CPT/HCPCS: 36415; 82306; 82784; 82785; 82787; 85025; 86003; 86317; 86355; 86357; 86359; 86360; 86769

== ENCOUNTER 2022-06-24 06:17 | Day surgery (SDC) | payer MEDICARE ==
[2022-06-23 09:27] VITALS: BMI 92.3
[~2022-06-24 06:17] MED LIST changes: -DEXAMETHASONE SOD PHOSPHATE 4 MG/ML 1 ML VIAL IV ONE; -HYDROmorphone 0.5 MG/0.5 ML SYRINGE IVP PRN; -MIDAZOLAM 2 MG/2 ML VIAL IV PRN; -ONDANSETRON 4 MG/2 ML VIAL IVP ONE; -VANCOMYCIN 1,000 MG in SODIUM CHLORIDE 0.9% 250 ML IVPB PRN
[2022-06-24 07:15] VITALS: RESP 16; TEMP 98.8
[2022-06-24 07:18] LABS: Glucose,Whole Blood 100 mg/dL (70-110)
[2022-06-24] MEDS ORDERED: LACTATED RINGERS 1,000 ML IV ONE (07:23)
[2022-06-24] MEDS ORDERED: PROPOFOL 10 MG/ML 20 ML VIAL IV ONE (07:25)
[2022-06-24] MEDS ORDERED: MIDAZOLAM 2 MG/2 ML VIAL ONE (07:25)
[2022-06-24] MEDS ORDERED: fentaNYL (PF) 50 MCG/ML 2 ML AMP ONE (07:25)
[2022-06-24 08:00] VITALS: BP 98/60; PULSE 72
[2022-06-24 08:06] LABS: Anisocytosis Slight; HCT 39.5 % (34.0-46.0); HGB 12.6 gm/dL (11.4-16.0); Hypochromasia Moderate; MCH 30.5 pg (25.0-35.0); MCV 95.3 fL (80.0-100.0); Mean Platelet Volume 10.1; Platelet Count 207 k/uL (150-450); RBC 4.14 m/uL (3.80-5.40); RDW 16.5 % (11.5-15.5); Reticulocyte % 2.5 % (0.5-2.0)
[2022-06-24 08:13] LABS: WBC 108.4 k/uL (3.8-10.6)
--- NOTE | 2022-06-24 08:22 | OP ---
OPERATIVE REPORT PREOPERATIVE DIAGNOSIS: Leukocytosis. POSTOPERATIVE DIAGNOSIS: Leukocytosis. ANESTHESIA: Local with IV systemic sedation. DESCRIPTION OF PROCEDURE: Utilizing sterile technique, the skin overlying the iliac crest was prepared with Betadine and alcohol. After adequate draping and local anesthesia, a size 11 4 inch Jamshidi needle was utilized to access the periosteum with ease. A total of 10 mL of aspirate and 3 cm core biopsies were obtained. The patient tolerated the procedure well. There was no immediate procedure related complication. TOTAL BLOOD LOSS: Less than 1 mL. Results pending. MMODL / IJN: [id number] /
[2022-06-24 12:00] LABS: Band Neutrophils % 7 %; Basophils # (M) 1.08 k/uL (0-0.2); Eosinophils # (M) 4.34 k/uL (0-0.7); Lymphocytes # (M) 7.59 k/uL (1.0-4.8); Metamyelocytes # (M) 4.34 k/uL (0); Metamyelocytes % 4 %; Monocytes # (M) 11.92 k/uL (0-1.0); Myelocytes # (M) 4.34 k/uL (0); Myelocytes % 4 %; Neutrophils % (M) 62 %
[2022-06-24 12:02] LABS: Blast Cells # (M) 1.08 k/uL (0); Nucleated Red Blood Cells 0 /100 WBC (0-0); Total Cells Counted 200
== END 2022-06-24 08:25 | disposition home or self-care (01) ==
LOC: OR 06:17
PROVIDERS: ATTEND Internal Medicine Hematology & Oncology
DX: D72.820 Lymphocytosis (symptomatic) (principal); E78.5 Hyperlipidemia, unspecified; J44.9 Chronic obstructive pulmonary disease, unspecified; Z88.0 Allergy status to penicillin; Z88.6 Allergy status to analgesic agent; Z88.8 Allergy status to other drugs, medicaments and biological substances; Z79.51 Long term (current) use of inhaled steroids; Z90.89 Acquired absence of other organs; Z90.49 Acquired absence of other specified parts of digestive tract; Z80.3 Family history of malignant neoplasm of breast; Z79.899 Other long term (current) drug therapy
CPT/HCPCS: 85025; 85045; 38222; J2250; J3010; J2704

== ENCOUNTER 2023-08-06 11:42 | Emergency (ER) | payer MEDICARE ==
--- NOTE | 2023-08-06 12:30 | ED ---
General Adult HPI - General Chief complaint: Shortness of Breath Stated complaint: Upper Resp Time Seen by Provider: 08/06/23 12:00 Source: patient, RN notes reviewed, old records reviewed Mode of arrival: EMS Limitations: no limitations - History of Present Illness Initial comments: This is a 68-year-old female who presents to the emergency department complaining of a cough and coughing with sputum. Patient states she had an x- ray done at her facility and they told her she had pneumonia recently told her to come to the emergency department. Patient states she's been a little bit more short of breath recently. Patient states she has a history of asthma and COPD. Patient also has a history of leukemia. Patient denies any chills but she states she has had a fever over the last couple of days. Patient denies any chest pain or palpitations. Patient denies abdominal pain patient denies nausea vomiting diarrhea. - Related Data Home Medications Medication Instructions Recorded Confirmed Albuterol Nebulized [Ventolin 2.5 mg INHALATION RT-QID PRN 06/28/20 06/24/22 Nebulized] Alendronate Sodium [Fosamax] 70 mg PO WE 06/28/20 06/24/22 Mirtazapine [Remeron] 15 mg PO HS 06/28/20 06/24/22 Montelukast [Singulair] 10 mg PO HS 06/28/20 06/24/22 Topiramate [Topamax] 100 mg PO BID 06/28/20 06/24/22 rOPINIRole HCL [Requip] 2 mg PO HS 06/28/20 06/24/22 EPINEPHrine (Auto Inject) [Epipen] 0.3 mg IM ONCE PRN 08/14/21 06/24/22 Ferrous Sulfate [Iron (65 MG 325 mg PO DAILY 08/14/21 06/24/22 Elemental)] buprenorphine HCL [Belbuca] 300 mcg BUCCAL BID 08/14/21 06/24/22 Atorvastatin [Lipitor] 20 mg PO HS 10/08/21 06/24/22 Baclofen 10 mg PO DAILY 10/08/21 06/24/22 Primidone [Mysoline] 25 mg PO TID 10/08/21 06/24/22 Fluticasone/Umeclidin/Vilanter 1 puff INHALATION QAM 11/28/22 11/29/22 [Trelegy Ellipta 200-62.5-25] Gabapentin [Neurontin] 100 mg PO TID 06/23/22 06/24/22 Levothyroxine Sodium [Synthroid] 175 mcg PO QAM 06/23/22 06/24/22 Sulfamethox-Tmp 800-160Mg [Bactrim 1 tab PO MOWEFR 06/23/22 06/24/22 DS 800-160 mg] predniSONE 5 mg PO 1200 06/23/22 06/24/22 Previous Rx's Medication Instructions Recorded Doxycycline [Vibramycin] 100 mg PO BID 10 Days #20 capsule 11/23/22 predniSONE 50 mg PO DAILY #5 tab 11/23/22 Azithromycin [Zithromax Tri-Bert (3 500 mg PO DAILY 3 Days #3 tab 08/06/23 tabs)] Allergies Allergy/AdvReac Type Severity Reaction Status Date / Time adhesive tape Allergy Rash/Hives Verified 06/24/22 06:53 aspirin Allergy Rash/Hives Verified 06/24/22 06:53 bee pollen Allergy Anaphylaxis Verified 06/24/22 06:53 bee venom protein (honey bee) Allergy Anaphylaxis Verified 06/24/22 06:53 cefdinir [From Omnicef] Allergy Anaphylaxis Verified 06/24/22 06:53 clarithromycin [From Biaxin] Allergy Anaphylaxis Verified 06/24/22 06:53 ibuprofen [From Advil] Allergy Anaphylaxis Verified 06/24/22 06:53 Iodinated Contrast Media Allergy Anaphylaxis Verified 06/24/22 06:53 [Iodinated Contrast Media - IV Dye] iodine Allergy Anaphylaxis Verified 06/24/22 06:53 omalizumab [From Xolair] Allergy Anaphylaxis Verified 06/24/22 06:53 Penicillins Allergy Dyspnea Verified 06/24/22 06:53 prochlorperazine edisylate Allergy Rash/Hives Verified 06/24/22 06:53 [From Compazine] prochlorperazine maleate Allergy Rash/Hives Verified 06/24/22 06:53 [From Compazine] shellfish derived Allergy Anaphylaxis Verified 06/24/22 06:53 Review of Systems ROS Statement: Those systems with pertinent positive or pertinent negative responses have been documented in the HPI. ROS Other: All systems not noted in ROS Statement are negative. Past Medical History Past Medical History: Asthma, COPD, Hyperlipidemia, Pneumonia, Respiratory Disorder, Sleep Apnea/CPAP/BIPAP, Thyroid Disorder Additional Past Medical History / Comment(s): hx migraines, "diaphragm issues", " respiratory issues" with home oxygen at 4L/NC continuous, JAREN but does not tolerate device, anemia, chronic low back pain, DDD, osteoporosis, hx fractured vertabra x2, chronic pain syndrome, RLS, essential tremors,, urine incontinence-uses depends, leukocytosis. History of Any Multi-Drug Resistant Organisms: None Reported Past Surgical History: Adenoidectomy, Appendectomy, Back Surgery, Breast Surgery, Cholecystectomy, Hysterectomy, Joint Replacement, Tonsillectomy Additional Past Surgical History / Comment(s): R breast bx, bilateral breast reduction/precancer, back fusion with hardware, kyphoplasty 07/2021 , L knee arthroscopy/ACL repair, total L knee arthroplasty, epidural back injections, colonoscopy, hemorrhoidectomy. right chest I&D of hematoma. I&D rt thigh, "tubes in ears to drain fluid" Past Anesthesia/Blood Transfusion Reactions: Family History of Problems w/ Anesthesia Additional Past Anesthesia/Blood Transfusion Reaction / Comment(s): "brother was awake during whole surgery" Past Psychological History: Depression Smoking Status: Never smoker, Second hand smoke exposure Past Alcohol Use History: None Reported Past Drug Use History: None Reported - Past Family History Mother Family Medical History: Cancer Father Family Medical History: Cancer Additional Family Medical History / Comment(s): Lung cancer General Exam - General Exam Comments Initial Comments: GENERAL: Patient is well-developed and well-nourished. Patient is nontoxic and well- hydrated and is in mild distress. ENT: Neck is soft and supple. No significant lymphadenopathy is noted. Oropharynx is clear. Moist mucous membranes. Neck has full range of motion without eliciting any pain. EYES: The sclera were anicteric and conjunctiva were pink and moist. Extraocular movements were intact and pupils were equal round and reactive to light. Eyelids were unremarkable. PULMONARY: Unlabored respirations. Poor inspiratory effort CARDIOVASCULAR: There is a regular rate and rhythm without any murmurs gallops or rubs. ABDOMEN: Soft and nontender with normal bowel sounds. SKIN: Skin is clear with no lesions or rashes and otherwise unremarkable. NEUROLOGIC: Patient is alert and oriented x3. Cranial nerves II through XII are grossly intact. Motor and sensory are also intact. Normal speech, volume and content. Symmetrical smile. MUSCULOSKELETAL: Normal extremities with adequate strength and full range of motion. LYMPHATICS: No significant lymphadenopathy is noted PSYCHIATRIC: Normal psychiatric evaluation. Limitations: no limitations Course Vital Signs 08/06/23 11:46 Temperature 97.6 F Pulse Rate 70 Respiratory 16 Rate Blood Pressure 137/77 O2 Sat by Pulse 99 Oximetry Medical Decision Making - Medical Decision Making EKG is interpreted by myself. EKG shows a sinus rhythm at 66 bpm CO interval is 171 QRS is 86 QT interval is 416 QTC is 4:30. Patient's EKG shows no ST segment elevation or depression. Was pt. sent in by a medical professional or institution (, PA, CREATIVE/ART DIRECTOR, urgent care, hospital, or prison...) When possible be specific @ -No Did you speak to anyone other than the patient for history (EMS, parent, family, police, friend...)? What history was obtained from this source @ -No Did you review nursing and triage notes (agree or disagree)? Why? @ -I reviewed and agree with nursing and triage notes Were old charts reviewed (outside hosp., previous admission, EMS record, old EKG, old radiological studies, urgent care reports/EKG's, prison records)? Report findings @ -I reviewed prior charts in prior notes on this patient as well as prior lab work and prior radiological studies Differential Diagnosis (chest pain, altered mental status, abdominal pain women, abdominal pain men, vaginal bleeding, weakness, fever, dyspnea, syncope, headache, dizziness, GI bleed, back pain, seizure, CVA, palpatations, mental health, musculoskeletal)? @ -Differential Dyspnea: Coronary syndrome, arrhythmia, tamponade, asthma, COPD, pulmonary embolism, pneumonia, pneumothorax, pulmonary effusion, anaphylaxis, diabetic ketoacidosis, flailed chest, pulmonary contusion, diaphragmatic rupture, anemia, neuromuscular, this is not meant to be an all-inclusive list. EKG interpreted by me (3pts min.). @ -As above X-rays interpreted by me (1pt min.). @ -Chest x-ray shows elevated right diaphragm but no significant lung pathology CT interpreted by me (1pt min.). @ -None done U/S interpreted by me (1pt. min.). @ -None done What testing was considered but not performed or refused? (CT, X-rays, U/S, labs)? Why? @ -None What meds were considered but not given or refused? Why? @ -None Did you discuss the management of the patient with other professionals (professionals i.e. , PA, CREATIVE/ART DIRECTOR, lab, RT, psych nurse, social service liaison, district supervisor, teacher, antisubmarine weapons officer, case manager specialist)? Give summary @ -No Was smoking cessation discussed for >3mins.? @ -No Was critical care preformed (if so, how long)? @ -No Were there social determinants of health that impacted care today? How? (Homelessness, low income, unemployed, alcoholism, drug addiction, transportation, low edu. Level, literacy, decrease access to med. care, fpc, rehab)? @ -No Was there de-escalation of care discussed even if they declined (Discuss DNR or withdrawal of care, Hospice)? DNR status @ -No What co-morbidities impacted this encounter? (DM, HTN, Smoking, COPD, CAD, Cancer, CVA, ARF, Chemo, Hep., AIDS, mental health diagnosis, sleep apnea, morbi d obesity)? @ -None Was patient admitted / discharged? Hospital course, mention meds given and route, prescriptions, significant lab abnormalities, going to OR and other pertinent info. @ -Patient states she is coughing quite a bit of sputum because of her COPD history I will cover her for a bronchitis due to bacteria. Patient is not ALLER GIC to Zithromax she states she's taken it in the past she'll be sent home with a prescription for Zithromax Undiagnosed new problem with uncertain prognosis? @ -No Drug Therapy requiring intensive monitoring for toxicity (Heparin, Nitro, Insu bob, Cardizem)? @ -No Were any procedures done? @ -No Diagnosis/symptom? @ -Bronchitis Acute, or Chronic, or Acute on Chronic? @ -Acute Uncomplicated (without systemic symptoms) or Complicated (systemic symptoms)? @ -Complicated Side effects of treatment? @ -No Exacerbation, Progression, or Severe Exacerbation? @ -No Poses a threat to life or bodily function? How? (Chest pain, USA, DC, pneumonia, PE, COPD, DKA, ARF, appy, cholecystitis, CVA, Diverticulitis, Homicidal, Suicidal, threat to staff... and all critical care pts) @ -No - Lab Data Result diagrams: 08/06/23 12:53 08/06/23 12:53 Lab Results 08/06/23 08/06/23 08/06/23 Range/Units 12:53 12:53 12:53 WBC 8.1 (3.8-10.6) k/uL RBC 4.03 (3.80-5.40) m/uL Hgb 12.4 (11.4-16.0) gm/dL Hct 37.2 (34.0-46.0) % MCV 92.3 (80.0-100.0) fL MCH 30.6 (25.0-35.0) pg MCHC 33.2 (31.0-37.0) g/dL RDW 16.5 H (11.5-15.5) % Plt Count 106 L (150-450) k/uL MPV 9.5 Neutrophils % 81 % Lymphocytes % 10 % Monocytes % 7 % Eosinophils % 0 % Basophils % 0 % Neutrophils # 6.5 (1.3-7.7) k/uL Lymphocytes # 0.8 L (1.0-4.8) k/uL Monocytes # 0.5 (0-1.0) k/uL Eosinophils # 0.0 (0-0.7) k/uL Basophils # 0.0 (0-0.2) k/uL Anisocytosis Slight PT 10.1 (10.0-12.5) sec INR 0.9 (<1.2) APTT 21.4 L (22.0-30.0) sec Sodium 139 (137-145) mmol/L Potassium 4.4 (3.5-5.1) mmol/L Chloride 103 (98-107) mmol/L Carbon Dioxide 27 (22-30) mmol/L Anion Gap 9 mmol/L BUN 15 (7-17) mg/dL Creatinine 0.63 (0.52-1.04) mg/dL Est GFR (CKD-EPI)AfAm >90 (>60 ml/min/1.73 sqM) Est GFR (CKD-EPI)NonAf >90 (>60 ml/min/1.73 sqM) Glucose 121 H (74-99) mg/dL Plasma Lactic Acid Carlos (0.7-2.0) mmol/L Calcium 9.1 (8.4-10.2) mg/dL Magnesium 2.0 (1.6-2.3) mg/dL Total Bilirubin 0.6 (0.2-1.3) mg/dL AST 25 (14-36) U/L ALT 26 (4-34) U/L Alkaline Phosphatase 85 (38-126) U/L Troponin I (0.000-0.034) ng/mL Total Protein 7.6 (6.3-8.2) g/dL Albumin 4.2 (3.5-5.0) g/dL Influenza Type A (PCR) (Not Detectd) Influenza Type B (PCR) (Not Detectd) RSV (PCR) (Not Detectd) SARS-CoV-2 (PCR) (Not Detectd) 08/06/23 08/06/23 08/06/23 Range/Units 12:53 12:53 12:53 WBC (3.8-10.6) k/uL RBC (3.80-5.40) m/uL Hgb (11.4-16.0) gm/dL Hct (34.0-46.0) % MCV (80.0-100.0) fL MCH (25.0-35.0) pg MCHC (31.0-37.0) g/dL RDW (11.5-15.5) % Plt Count (150-450) k/uL MPV Neutrophils % % Lymphocytes % % Monocytes % % Eosinophils % % Basophils % % Neutrophils # (1.3-7.7) k/uL Lymphocytes # (1.0-4.8) k/uL Monocytes # (0-1.0) k/uL Eosinophils # (0-0.7) k/uL Basophils # (0-0.2) k/uL Anisocytosis PT (10.0-12.5) sec INR (<1.2) APTT (22.0-30.0) sec Sodium (137-145) mmol/L Potassium (3.5-5.1) mmol/L Chloride (98-107) mmol/L Carbon Dioxide (22-30) mmol/L Anion Gap mmol/L BUN (7-17) mg/dL Creatinine (0.52-1.04) mg/dL Est GFR (CKD-EPI)AfAm (>60 ml/min/1.73 sqM) Est GFR (CKD-EPI)NonAf (>60 ml/min/1.73 sqM) Glucose (74-99) mg/dL Plasma Lactic Acid Carlos 0.9 (0.7-2.0) mmol/L Calcium (8.4-10.2) mg/dL Magnesium (1.6-2.3) mg/dL Total Bilirubin (0.2-1.3) mg/dL AST (14-36) U/L ALT (4-34) U/L Alkaline Phosphatase (38-126) U/L Troponin I <0.012 (0.000-0.034) ng/mL Total Protein (6.3-8.2) g/dL Albumin (3.5-5.0) g/dL Influenza Type A (PCR) Not Detected (Not Detectd) Influenza Type B (PCR) Not Detected (Not Detectd) RSV (PCR) Not Detected (Not Detectd) SARS-CoV-2 (PCR) Not Detected (Not Detectd) Disposition Clinical Impression: Acute bronchitis Disposition: HOME SELF-CARE Instructions (If sedation given, give patient instructions): Acute Bronchitis (ED) Prescriptions: Azithromycin [Zithromax Tri-Bert (3 tabs)] 500 mg PO DAILY 3 Days #3 tab Is patient prescribed a controlled substance at d/c from ED?: No Referrals: Maikel Johnson MD [Primary Care Provider] - 1-2 days Time of Disposition: 14:46
[2023-08-06 13:15] LABS: Anisocytosis Slight; Basophils % (A) 0 %; Eosinophils % (A) 0 %; HCT 37.2 % (34.0-46.0); HGB 12.4 gm/dL (11.4-16.0); Lymphocytes # (A) 0.8 k/uL (1.0-4.8); Lymphocytes % (A) 10 %; MCH 30.6 pg (25.0-35.0); MCHC 33.2 g/dL (31.0-37.0); MCV 92.3 fL (80.0-100.0); Mean Platelet Volume 9.5; Monocytes # (A) 0.5 k/uL (0-1.0); Monocytes % (A) 7 %; Neutrophils # (A) 6.5 k/uL (1.3-7.7); Neutrophils % (A) 81 %; Platelet Count 106 k/uL (150-450); RBC 4.03 m/uL (3.80-5.40); RDW 16.5 % (11.5-15.5); WBC 8.1 k/uL (3.8-10.6)
[2023-08-06 13:20] LABS: ALT 26 U/L (4-34); AST 25 U/L (14-36); African American GFR (CKD) >90 (>60 ml/min/1.73 sqM); Albumin 4.2 g/dL (3.5-5.0); Alkaline Phosphatase 85 U/L (38-126); Anion Gap 9 mmol/L; Blood Urea Nitrogen 15 mg/dL (7-17); Calcium 9.1 mg/dL (8.4-10.2); Carbon Dioxide 27 mmol/L (22-30); Chloride 103 mmol/L (98-107); Glucose 121 mg/dL (74-99); Non-African American GFR(CKD) >90 (>60 ml/min/1.73 sqM); Potassium 4.4 mmol/L (3.5-5.1); Sodium 139 mmol/L (137-145); Total Bilirubin 0.6 mg/dL (0.2-1.3); Total Protein 7.6 g/dL (6.3-8.2)
[2023-08-06 13:21] LABS: INR 0.9 (<1.2); Partial Thromboplastin Time 21.4 sec (22.0-30.0); Prothrombin Time 10.1 sec (10.0-12.5)
--- NOTE | 2023-08-06 14:35 | XR ---
EXAMINATION TYPE: XR chest 2V DATE OF EXAM: 08/06/2023 COMPARISON: 11/23/2022 HISTORY: 68 year-old female shortness of breath, difficulty breathing TECHNIQUE: AP and lateral views FINDINGS: Markedly diminished lung volumes with crowded vascular markings. Elevated hemidiaphragms obscure the heart margins. Patchy lower lung opacities are present. Old fracture deformities right sided ribs. Ve rtebroplasty change in the lumbar spine. No sizable pleural effusion. IMPRESSION: Exam is suboptimal due to marked hypoventilatory changes. Patchy bibasilar opacities probably areas o f atelectasis.
[2023-08-06 15:45] VITALS: BP 148/75; PULSE 81; RESP 22; TEMP 98.4
== END 2023-08-06 16:10 | disposition home or self-care (01) ==
LOC: EC 11:42
DX: J20.9 Acute bronchitis, unspecified (principal); J44.89 Other specified chronic obstructive pulmonary disease; E78.5 Hyperlipidemia, unspecified; E07.9 Disorder of thyroid, unspecified; F32.A Depression, unspecified; Z20.822 Contact with and (suspected) exposure to COVID-19; Z77.22 Contact with and (suspected) exposure to environmental tobacco smoke (acute) (chronic); Z79.890 Hormone replacement therapy; Z79.52 Long term (current) use of systemic steroids; Z79.51 Long term (current) use of inhaled steroids; Z79.899 Other long term (current) drug therapy; Z88.0 Allergy status to penicillin; Z88.6 Allergy status to analgesic agent; Z91.030 Bee allergy status; Z88.1 Allergy status to other antibiotic agents; Z91.041 Radiographic dye allergy status; Z88.8 Allergy status to other drugs, medicaments and biological substances; Z91.09 Other allergy status, other than to drugs and biological substances; Z91.013 Allergy to seafood
CPT/HCPCS: 36415; 71046; 80053; 83605; 83735; 84484; 85025; 85610; 85730; 87040; 87636; 93005; 99285

== ENCOUNTER 2024-04-02 12:58 | Emergency (ER) | payer MEDICARE ==
--- NOTE | 2024-04-02 13:21 | ED ---
General Adult HPI - General Chief complaint: Allergic Reaction Stated complaint: Allergic reaction Time Seen by Provider: 04/02/24 12:59 Source: patient, EMS, RN notes reviewed, old records reviewed Mode of arrival: EMS Limitations: no limitations - History of Present Illness Initial comments: 69-year-old female presenting with suspected allergic reaction. Patient took a fluconazole tablet yesterday for yeast infection. She states that throughout th is morning she developed a rash on her upper chest and some mild dyspnea. Patient is oxygen dependent with history of COPD. She had administered her EpiPen which she has due to multiple allergies. She was given Benadryl by paramedics during transport. Vital signs were stable without hypoxia no t achycardia, stable blood pressure. No vomiting. Rash is isolated to the upper chest. - Related Data Home Medications Medication Instructions Recorded Confirmed Albuterol Nebulized [Ventolin 2.5 mg INHALATION RT-QID PRN 06/28/20 06/24/22 Nebulized] Alendronate Sodium [Fosamax] 70 mg PO WE 06/28/20 06/24/22 Mirtazapine [Remeron] 15 mg PO HS 06/28/20 06/24/22 Montelukast [Singulair] 10 mg PO HS 06/28/20 06/24/22 Topiramate [Topamax] 100 mg PO BID 06/28/20 06/24/22 rOPINIRole HCL [Requip] 2 mg PO HS 06/28/20 06/24/22 EPINEPHrine (Auto Inject) [Epipen] 0.3 mg IM ONCE PRN 08/14/21 06/24/22 Ferrous Sulfate [Iron (65 MG 325 mg PO DAILY 08/14/21 06/24/22 Elemental)] buprenorphine HCL [Belbuca] 300 mcg BUCCAL BID 08/14/21 06/24/22 Atorvastatin [Lipitor] 20 mg PO HS 10/08/21 06/24/22 Baclofen 10 mg PO DAILY 10/08/21 06/24/22 Primidone [Mysoline] 25 mg PO TID 10/08/21 06/24/22 Fluticasone/Umeclidin/Vilanter 1 puff INHALATION QAM 06/23/22 06/24/22 [Trelegy Ellipta 200-62.5-25] Gabapentin [Neurontin] 100 mg PO TID 06/23/22 06/24/22 Levothyroxine Sodium [Synthroid] 175 mcg PO QAM 06/23/22 06/24/22 Sulfamethox-Tmp 800-160Mg [Bactrim 1 tab PO MOWEFR 06/23/22 06/24/22 DS 800-160 mg] predniSONE 5 mg PO 1200 06/23/22 06/24/22 Previous Rx's Medication Instructions Recorded Doxycycline [Vibramycin] 100 mg PO BID 10 Days #20 capsule 11/23/22 predniSONE 50 mg PO DAILY #5 tab 11/23/22 Azithromycin [Zithromax Tri-Bert (3 500 mg PO DAILY 3 Days #3 tab 08/06/23 tabs)] Famotidine [Pepcid] 20 mg PO DAILY #7 tablet 04/02/24 diphenhydrAMINE [Benadryl] 25 mg PO TID PRN #21 capsule 04/02/24 predniSONE [Deltasone] 20 mg PO BID 5 Days #10 tab 04/02/24 Allergies Allergy/AdvReac Type Severity Reaction Status Date / Time adhesive tape Allergy Rash/Hives Verified 04/02/24 13:03 aspirin Allergy Rash/Hives Verified 04/02/24 13:03 bee pollen Allergy Anaphylaxis Verified 04/02/24 13:03 bee venom protein (honey bee) Allergy Anaphylaxis Verified 04/02/24 13:03 cefdinir [From Omnicef] Allergy Anaphylaxis Verified 04/02/24 13:03 clarithromycin [From Biaxin] Allergy Anaphylaxis Verified 04/02/24 13:03 ibuprofen [From Advil] Allergy Anaphylaxis Verified 04/02/24 13:03 Iodinated Contrast Media Allergy Anaphylaxis Verified 04/02/24 13:03 [Iodinated Contrast Media - IV Dye] iodine Allergy Anaphylaxis Verified 04/02/24 13:03 omalizumab [From Xolair] Allergy Anaphylaxis Verified 04/02/24 13:03 Penicillins Allergy Dyspnea Verified 04/02/24 13:03 prochlorperazine edisylate Allergy Rash/Hives Verified 04/02/24 13:03 [From Compazine] prochlorperazine maleate Allergy Rash/Hives Verified 04/02/24 13:03 [From Compazine] shellfish derived Allergy Anaphylaxis Verified 04/02/24 13:03 Review of Systems ROS Statement: Those systems with pertinent positive or pertinent negative responses have been documented in the HPI. ROS Other: All systems not noted in ROS Statement are negative. Past Medical History Past Medical History: Asthma, COPD, Hyperlipidemia, Pneumonia, Respiratory Disorder, Sleep Apnea/CPAP/BIPAP, Thyroid Disorder Additional Past Medical History / Comment(s): hx migraines, "diaphragm issues", " respiratory issues" with home oxygen at 4L/NC continuous, JAREN but does not tolerate device, anemia, chronic low back pain, DDD, osteoporosis, hx fractured vertabra x2, chronic pain syndrome, RLS, essential tremors,, urine incontinence-uses depends, leukocytosis. History of Any Multi-Drug Resistant Organisms: None Reported Past Surgical History: Adenoidectomy, Appendectomy, Back Surgery, Breast Surgery, Cholecystectomy, Hysterectomy, Joint Replacement, Tonsillectomy Additional Past Surgical History / Comment(s): R breast bx, bilateral breast reduction/precancer, back fusion with hardware, kyphoplasty 07/2021 , L knee arthroscopy/ACL repair, total L knee arthroplasty, epidural back injections, colonoscopy, hemorrhoidectomy. right chest I&D of hematoma. I&D rt thigh, "tubes in ears to drain fluid" Past Anesthesia/Blood Transfusion Reactions: Family History of Problems w/ Anesthesia Additional Past Anesthesia/Blood Transfusion Reaction / Comment(s): "brother was awake during whole surgery" Past Psychological History: Depression Smoking Status: Never smoker, Second hand smoke exposure Past Alcohol Use History: None Reported Past Drug Use History: None Reported - Past Family History Mother Family Medical History: Cancer Father Family Medical History: Cancer Additional Family Medical History / Comment(s): Lung cancer General Exam Limitations: no limitations General appearance: alert, in no apparent distress Head exam: Present: atraumatic, normocephalic Eye exam: Present: normal appearance, PERRL ENT exam: Present: normal exam, other (Uvular swelling, poorly visualized oropharynx) Neck exam: Present: normal inspection Respiratory exam: Present: decreased breath sounds. Absent: respiratory distress, wheezes Cardiovascular Exam: Present: regular rate, normal rhythm GI/Abdominal exam: Present: soft. Absent: distended, tenderness, guarding Extremities exam: Present: normal inspection, normal capillary refill. Absent: pedal edema, calf tenderness Neurological exam: Present: alert, oriented X3, CN II-XII intact. Absent: motor sensory deficit Psychiatric exam: Present: anxious Skin exam: Present: warm. Absent: cyanosis, diaphoretic Course Vital Signs 04/02/24 04/02/24 04/02/24 12:59 13:51 14:46 Temperature 97.2 F L Pulse Rate 89 78 Respiratory 20 18 18 Rate Blood Pressure 140/67 131/72 128/80 O2 Sat by Pulse 98 99 99 Oximetry 04/02/24 04/02/24 04/02/24 14:48 14:56 15:00 Temperature Pulse Rate 73 76 86 Respiratory 18 Rate Blood Pressure 132/73 O2 Sat by Pulse 98 Oximetry 04/02/24 16:01 Temperature Pulse Rate 84 Respiratory 18 Rate Blood Pressure 131/70 O2 Sat by Pulse 97 Oximetry Medical Decision Making - Medical Decision Making Was pt. sent in by a medical professional or institution (, PA, SUPERVISOR COIN MACHINE, urgent care, hospital, or senior living...) When possible be specific @ -No Did you speak to anyone other than the patient for history (EMS, parent, family, police, friend...)? What history was obtained from this source @ -No Did you review nursing and triage notes (agree or disagree)? Why? @ -I reviewed and agree with nursing and triage notes Were old charts reviewed (outside hosp., previous admission, EMS record, old EKG, old radiological studies, urgent care reports/EKG's, senior living records)? Report findings @ -No old charts were reviewed Differential Diagnosis (chest pain, altered mental status, abdominal pain women, abdominal pain men, vaginal bleeding, weakness, fever, dyspnea, syncope, headache, dizziness, GI bleed, back pain, seizure, CVA, palpatations, mental health, musculoskeletal)? @ -Not applicable EKG interpreted by me (3pts min.). @ -[Sinus rhythm rate of 80, PA interval 132, QRS duration 89, QTc [address] segment elevation. X-rays interpreted by me (1pt min.). @ -None done CT interpreted by me (1pt min.). @ -None done U/S interpreted by me (1pt. min.). @ -None done What testing was considered but not performed or refused? (CT, X-rays, U/S, labs)? Why? @ -None What meds were considered but not given or refused? Why? @ -None Did you discuss the management of the patient with other professionals (professionals i.e. , PA, SUPERVISOR COIN MACHINE, lab, RT, psych nurse, social media editor, resp therapist, teacher, boating safety officer, case repairer)? Give summary @ -No Was smoking cessation discussed for >3mins.? @ -No Was critical care preformed (if so, how long)? @ -No Were there social determinants of health that impacted care today? How? (Homelessness, low income, unemployed, alcoholism, drug addiction, tra nsportation, low edu. Level, literacy, decrease access to med. care, fpc, rehab)? @ -No Was there de-escalation of care discussed even if they declined (Discuss DNR or withdrawal of care, Hospice)? DNR status @ -No What co-morbidities impacted this encounter? (DM, HTN, Smoking, COPD, CAD, Cancer, CVA, ARF, Chemo, Hep., AIDS, mental health diagnosis, sleep apnea, morbid obesity)? @ - O2 Dependent COPD. Was patient admitted / discharged? Hospital course, mention meds given and route, prescriptions, significant lab abnormalities, going to OR and other pertinent info. @ 69 yo female presenting with allergic reaction to fluconazole. This medication is listed as an allergy. She had been given EpiPen and Benadryl prior to arrival. She is given a dose of Solu-Medrol in the emergency depart ment. She is observed for over 3 hours without hypoxia without vomiting with only a mild rash on her chest. Patient prescribed short course of steroids, Pepcid, Benadryl. Will return as needed. Undiagnosed new problem with uncertain prognosis? @ -No Drug Therapy requiring intensive monitoring for toxicity (Heparin, Nitro, Insulin, Cardizem)? @ -No Were any procedures done? @ -No Diagnosis/symptom? @ -Allergic reaction to medication Acute, or Chronic, or Acute on Chronic? @ -[Acute Uncomplicated (without systemic symptoms) or Complicated (systemic symptoms)? @ -Default Side effects of treatment? @ -No Exacerbation, Progression, or Severe Exacerbation? @ -No Poses a threat to life or bodily function? How? (Chest pain, USA, SD, pneumonia, PE, COPD, DKA, ARF, appy, cholecystitis, CVA, Diverticulitis, Homicidal, Suicidal, threat to staff... and all critical care pts) @ -yes, Allergic reaction - Lab Data Result diagrams: 04/02/24 13:19 04/02/24 13:19 Lab Results 04/02/24 04/02/24 Range/Units 13:19 13:19 WBC 12.1 H (3.8-10.6) k/uL RBC 4.27 (3.80-5.40) m/uL Hgb 13.4 (11.4-16.0) gm/dL Hct 41.5 (34.0-46.0) % MCV 97.3 (80.0-100.0) fL MCH 31.5 (25.0-35.0) pg MCHC 32.4 (31.0-37.0) g/dL RDW 14.3 (11.5-15.5) % Plt Count 185 (150-450) k/uL MPV 8.4 Neutrophils % 73 % Lymphocytes % 21 % Monocytes % 4 % Eosinophils % 1 % Basophils % 0 % Neutrophils # 8.8 H (1.3-7.7) k/uL Lymphocytes # 2.6 (1.0-4.8) k/uL Monocytes # 0.5 (0-1.0) k/uL Eosinophils # 0.1 (0-0.7) k/uL Basophils # 0.0 (0-0.2) k/uL Hypochromasia Slight Sodium 139 (137-145) mmol/L Potassium 4.4 (3.5-5.1) mmol/L Chloride 106 (98-107) mmol/L Carbon Dioxide 26 (22-30) mmol/L Anion Gap 7 mmol/L BUN 13 (7-17) mg/dL Creatinine 0.69 (0.52-1.04) mg/dL Est GFR (CKD-EPI)AfAm >90 (>60 ml/min/1.73 sqM) Est GFR (CKD-EPI)NonAf 89 (>60 ml/min/1.73 sqM) Glucose 151 H (74-99) mg/dL Calcium 9.1 (8.4-10.2) mg/dL Total Bilirubin 1.0 (0.2-1.3) mg/dL AST 26 (14-36) U/L ALT 17 (4-34) U/L Alkaline Phosphatase 83 (38-126) U/L Total Protein 7.1 (6.3-8.2) g/dL Albumin 4.4 (3.5-5.0) g/dL Disposition Clinical Impression: Allergic reaction to drug Disposition: HOME SELF-CARE Condition: Fair Instructions (If sedation given, give patient instructions): General Allergic Reaction (ED), Anaphylaxis (ED) Prescriptions: diphenhydrAMINE [Benadryl] 25 mg PO TID PRN #21 capsule PRN Reason: Allergic Reaction predniSONE [Deltasone] 20 mg PO BID 5 Days #10 tab Famotidine [Pepcid] 20 mg PO DAILY #7 tablet Is patient prescribed a controlled substance at d/c from ED?: No Referrals: Maikel Johnson MD [STAFF PHYSICIAN] - 1-2 days Time of Disposition: 16:11
[2024-04-02 13:36] LABS: Basophils % (A) 0 %; Eosinophils # (A) 0.1 k/uL (0-0.7); Eosinophils % (A) 1 %; HCT 41.5 % (34.0-46.0); HGB 13.4 gm/dL (11.4-16.0); Hypochromasia Slight; Lymphocytes # (A) 2.6 k/uL (1.0-4.8); Lymphocytes % (A) 21 %; MCH 31.5 pg (25.0-35.0); MCHC 32.4 g/dL (31.0-37.0); MCV 97.3 fL (80.0-100.0); Mean Platelet Volume 8.4; Monocytes # (A) 0.5 k/uL (0-1.0); Monocytes % (A) 4 %; Neutrophils # (A) 8.8 k/uL (1.3-7.7); Neutrophils % (A) 73 %; Platelet Count 185 k/uL (150-450); RBC 4.27 m/uL (3.80-5.40); RDW 14.3 % (11.5-15.5); WBC 12.1 k/uL (3.8-10.6)
[2024-04-02 13:44] LABS: ALT 17 U/L (4-34); AST 26 U/L (14-36); African American GFR (CKD) >90 (>60 ml/min/1.73 sqM); Albumin 4.4 g/dL (3.5-5.0); Alkaline Phosphatase 83 U/L (38-126); Anion Gap 7 mmol/L; Blood Urea Nitrogen 13 mg/dL (7-17); Calcium 9.1 mg/dL (8.4-10.2); Carbon Dioxide 26 mmol/L (22-30); Chloride 106 mmol/L (98-107); Glucose 151 mg/dL (74-99); Non-African American GFR(CKD) 89 (>60 ml/min/1.73 sqM); Potassium 4.4 mmol/L (3.5-5.1); Sodium 139 mmol/L (137-145); Total Protein 7.1 g/dL (6.3-8.2)
[2024-04-02] MEDS: methylPREDNISolone SOD SUCCI 125 MG/2 ML VIAL IV STA (13:50)
[2024-04-02] MEDS: IPRATROPIUM-ALBUTEROL 3 ML NEB INHALATION STA (14:47)
[2024-04-02 16:10] VITALS: BP 140/74; PULSE 75; RESP 16; TEMP 98.3
== END 2024-04-02 18:55 | disposition home or self-care (01) ==
LOC: EC 12:58
CPT/HCPCS: 36415; 80053; 85025; 93005; 94640; 96374; 99284

== ENCOUNTER 2024-04-16 11:18 | Emergency (ER) | payer MEDICARE ==
[2024-04-16 11:27] VITALS: RESP 20; TEMP 97.9
[2024-04-16] MEDS: MORPHINE SULFATE 4 MG/ML SYRINGE IM STA (11:34)
--- NOTE | 2024-04-16 11:41 | ED ---
Lower Extremity Injury HPI - General Chief Complaint: Extremity Injury, Lower Stated Complaint: L Foot Injury Time Seen by Provider: 04/16/24 11:19 Source: patient, EMS, RN notes reviewed Mode of arrival: EMS Limitations: no limitations - History of Present Illness Initial Comments: This is a 69-year-old female who presents to the emergency department for a left foot injury. States that 3 days ago she dropped a 32 ounce tumbler on her left foot. Believes that this may have weighed around 10 pounds. She was able to walk yesterday and went to the [facility], however this morning states that she has been unable to ambulate. Currently lives at [facility]. She does take oxycodone for pain. - Related Data Home Medications Medication Instructions Recorded Confirmed Albuterol Nebulized [Ventolin 2.5 mg INHALATION RT-QID PRN 06/28/20 06/24/22 Nebulized] Alendronate Sodium [Fosamax] 70 mg PO WE 06/28/20 06/24/22 Mirtazapine [Remeron] 15 mg PO HS 06/28/20 06/24/22 Montelukast [Singulair] 10 mg PO HS 06/28/20 06/24/22 Topiramate [Topamax] 100 mg PO BID 06/28/20 06/24/22 rOPINIRole HCL [Requip] 2 mg PO HS 06/28/20 06/24/22 EPINEPHrine (Auto Inject) [Epipen] 0.3 mg IM ONCE PRN 08/14/21 06/24/22 Ferrous Sulfate [Iron (65 MG 325 mg PO DAILY 08/14/21 06/24/22 Elemental)] buprenorphine HCL [Belbuca] 300 mcg BUCCAL BID 08/14/21 06/24/22 Atorvastatin [Lipitor] 20 mg PO HS 10/08/21 06/24/22 Baclofen 10 mg PO DAILY 10/08/21 06/24/22 Primidone [Mysoline] 25 mg PO TID 10/08/21 06/24/22 Fluticasone/Umeclidin/Vilanter 1 puff INHALATION QAM 06/23/22 06/24/22 [Trelegy Ellipta 200-62.5-25] Gabapentin [Neurontin] 100 mg PO TID 06/23/22 06/24/22 Levothyroxine Sodium [Synthroid] 175 mcg PO QAM 06/23/22 06/24/22 Sulfamethox-Tmp 800-160Mg [Bactrim 1 tab PO MOWEFR 06/23/22 06/24/22 DS 800-160 mg] predniSONE 5 mg PO 1200 06/23/22 06/24/22 Previous Rx's Medication Instructions Recorded Doxycycline [Vibramycin] 100 mg PO BID 10 Days #20 capsule 11/23/22 predniSONE 50 mg PO DAILY #5 tab 11/23/22 Azithromycin [Zithromax Tri-Bert (3 500 mg PO DAILY 3 Days #3 tab 08/06/23 tabs)] Famotidine [Pepcid] 20 mg PO DAILY #7 tablet 04/02/24 diphenhydrAMINE [Benadryl] 25 mg PO TID PRN #21 capsule 04/02/24 predniSONE [Deltasone] 20 mg PO BID 5 Days #10 tab 04/02/24 Allergies Allergy/AdvReac Type Severity Reaction Status Date / Time adhesive tape Allergy Rash/Hives Verified 04/02/24 13:03 aspirin Allergy Rash/Hives Verified 04/02/24 13:03 bee pollen Allergy Anaphylaxis Verified 04/02/24 13:03 bee venom protein (honey bee) Allergy Anaphylaxis Verified 04/02/24 13:03 cefdinir [From Omnicef] Allergy Anaphylaxis Verified 04/02/24 13:03 clarithromycin [From Biaxin] Allergy Anaphylaxis Verified 04/02/24 13:03 ibuprofen [From Advil] Allergy Anaphylaxis Verified 04/02/24 13:03 Iodinated Contrast Media Allergy Anaphylaxis Verified 04/02/24 13:03 [Iodinated Contrast Media - IV Dye] iodine Allergy Anaphylaxis Verified 04/02/24 13:03 omalizumab [From Xolair] Allergy Anaphylaxis Verified 04/02/24 13:03 Penicillins Allergy Dyspnea Verified 04/02/24 13:03 prochlorperazine edisylate Allergy Rash/Hives Verified 04/02/24 13:03 [From Compazine] prochlorperazine maleate Allergy Rash/Hives Verified 04/02/24 13:03 [From Compazine] shellfish derived Allergy Anaphylaxis Verified 04/02/24 13:03 Review of Systems ROS Statement: Those systems with pertinent positive or pertinent negative responses have been documented in the HPI. ROS Other: All systems not noted in ROS Statement are negative. Past Medical History Past Medical History: Asthma, COPD, Hyperlipidemia, Pneumonia, Respiratory Disorder, Sleep Apnea/CPAP/BIPAP, Thyroid Disorder Additional Past Medical History / Comment(s): hx migraines, "diaphragm issues", " respiratory issues" with home oxygen at 4L/NC continuous, JAREN but does not tolerate device, anemia, chronic low back pain, DDD, osteoporosis, hx fractured vertabra x2, chronic pain syndrome, RLS, essential tremors,, urine incontinence- uses depends, leukocytosis. History of Any Multi-Drug Resistant Organisms: None Reported Past Surgical History: Adenoidectomy, Appendectomy, Back Surgery, Breast Surgery, Cholecystectomy, Hysterectomy, Joint Replacement, Tonsillectomy Additional Past Surgical History / Comment(s): R breast bx, bilateral breast reduction/precancer, back fusion with hardware, kyphoplasty 07/2021 , L knee arthroscopy/ACL repair, total L knee arthroplasty, epidural back injections, colonoscopy, hemorrhoidectomy. right chest I&D of hematoma. I&D rt thigh, "tubes in ears to drain fluid" Past Anesthesia/Blood Transfusion Reactions: Family History of Problems w/ Anesthesia Additional Past Anesthesia/Blood Transfusion Reaction / Comment(s): "brother was awake during whole surgery" Past Psychological History: Depression Smoking Status: Never smoker, Second hand smoke exposure Past Alcohol Use History: None Reported Past Drug Use History: None Reported - Past Family History Mother Family Medical History: Cancer Father Family Medical History: Cancer Additional Family Medical History / Comment(s): Lung cancer General Exam Limitations: no limitations General appearance: alert, in no apparent distress Head exam: Present: atraumatic, normocephalic, normal inspection Respiratory exam: Present: normal lung sounds bilaterally. Absent: respiratory distress, wheezes, rales, rhonchi, stridor Cardiovascular Exam: Present: regular rate, normal rhythm, normal heart sounds. Absent: systolic murmur, diastolic murmur, rubs, gallop, clicks Extremities exam: Present: other (Tenderness, ecchymosis, and swelling over the dorsal aspect of the left foot and toes. 2+ DP and PT pulses.) Neurological exam: Present: alert, oriented X3, CN II-XII intact Psychiatric exam: Present: normal affect, normal mood Course Vital Signs 04/16/24 11:19 Temperature 97.9 F Pulse Rate 82 Respiratory 20 Rate Blood Pressure 126/72 O2 Sat by Pulse 97 Oximetry Medical Decision Making - Medical Decision Making This is a 69-year-old female who presents to the emergency department for a left foot injury. Was pt. sent in by a medical professional or institution? @ -No Did you speak to anyone other than the patient for history? @ -No Did you review nursing and triage notes? @ -Yes, and I agree, it is accurate with regards to the patient's symptoms. Were old charts reviewed? @ -No Differential Diagnosis? @ -Differential Musculoskeletal: Muscular strain, contusion, ligament sprain, fracture, arthritis, septic arthritis, bursitis, cellulitis, muscle spasm, nerve compression, DVT, arterial occlusion, herpes zoster, electrolyte abnormality, tumor.... This is not meant to be in all inclusive list EKG interpreted by me (3pts min.)? @ -Not obtained X-rays interpreted by me (1pt min.)? @ -X-ray of the left foot obtained. My interpretation identifies no acute fractures. CT interpreted by me (1pt min.)? @ -Not obtained U/S interpreted by me (1pt. min.)? @ -Not obtained What testing was considered but not performed? (CT, X-rays, U/S, labs)? Why? @ -None What meds were considered but not given? Why? @ -None Did you discuss the management of the patient with other professionals? @ -No Did you reconcile home meds? @ -No Was smoking cessation discussed for >3mins.? @ -No Was critical care preformed (if so, how long)? @ -No Were there social determinants of health that impacted care today? How? (Homelessness, low income, unemployed, alcoholism, drug addiction, transportation, low edu. Level, literacy, decrease access to med. care, prison, rehab)? @ -No Was there de-escalation of care discussed even if they declined? (Discuss DNR or withdrawal of care, Hospice)? @ -No What co-morbidities impacted this encounter? (DM, HTN, Smoking, COPD, CAD, Cancer, CVA, Hep., AIDS, mental health diagnosis, sleep apnea, morbid obesity)? @ -Osteoarthritis Was patient admitted / discharged? @ -Discharged. X-ray of the left foot obtained revealing no acute fractures. Morphine administered for pain control. Patient likely over[place] bruised foot. She will continue to take her oxycodone at home for pain management. We also discussed ice and elevation. Her foot was wrapped with an Garrett bandage and she was discharged back to [facility] in stable condition. They can push her around in a wheelchair as needed if she is unable to ambulate for the meantime. Case discussed with ED attending Dr. Mario. Return precautions reviewed in depth, the patient is instructed to return to the emergency department with any new, worsening, or concerning symptoms. Patient verbalized understanding. Undiagnosed new problem with uncertain prognosis? @ -None Drug Therapy requiring intensive monitoring for toxicity (Heparin, Nitro, Insulin, Cardizem)? @ -None Were any procedures done? @ -None Diagnosis/symptom? @ -Left foot contusion Acute, or Chronic, or Acute on Chronic? @ -Acute Uncomplicated (without systemic symptoms) or Complicated (systemic symptoms)? @ -Uncomplicated Side effects of treatment? @ -None Exacerbation, Progression, or Severe Exacerbation] @ -Not applicable Poses a threat to life or bodily function? @ -This may limit her ability to ambulate for the mean time. - Radiology Data Radiology results: report reviewed, image reviewed Disposition Clinical Impression: Contusion of foot, left Disposition: HOME SELF-CARE Instructions (If sedation given, give patient instructions): Foot Contusion (ED) Additional Instructions: Return to the emergency department with any new, worsening, or concerning symptoms. Ice and elevate the leg. Use a wheelchair or ambulate with assistance until your symptoms improve. Follow up with your primary care provider in 1-2 days. Is patient prescribed a controlled substance at d/c from ED?: No Referrals: Bigg Palacios MD [Primary Care Provider] - 1-2 days Time of Disposition: 12:26
--- NOTE | 2024-04-16 12:13 | XR ---
EXAMINATION TYPE: XR foot complete LT DATE OF EXAM: 04/16/2024 11:46 AM CLINICAL INDICATION: Female, 69 years old with history of Injury; [facility] COMPARISON: None TECHNIQUE: XR foot complete LT examined in the AP, oblique, and lateral projections. FINDINGS: Diffuse osseous demineralization, this limits evaluation for fractures. No evidence of any acute osse ous pathology. Soft tissue swelling present. Multifocal degeneration changes throughout the joints of the foot with osteophyte formation and joint space narrowing. IMPRESSION: 1. Diffuse osseous demineralization which limits evaluation for fractures. 2. No evidence of acute fracture. 3. Multifocal degeneration changes throughout the joints of the foot. [facility], , 04/16/2024 12:11 PM
[2024-04-16 13:12] VITALS: BP 114/70; PULSE 80
== END 2024-04-16 13:12 | disposition home or self-care (01) ==
LOC: EC 11:18
CPT/HCPCS: 96372; 99283

== ENCOUNTER 2024-07-04 13:54 | Emergency (ER) | payer MEDICARE ==
[2024-07-04 14:01] VITALS: TEMP 98.9
[2024-07-04 15:01] LABS: Basophils % (A) 0 %; Eosinophils # (A) 0.1 k/uL (0-0.7); Eosinophils % (A) 1 %; HCT 41.1 % (34.0-46.0); HGB 13.1 gm/dL (11.4-16.0); Lymphocytes # (A) 1.4 k/uL (1.0-4.8); Lymphocytes % (A) 14 %; MCH 30.9 pg (25.0-35.0); MCHC 31.9 g/dL (31.0-37.0); MCV 96.8 fL (80.0-100.0); Monocytes # (A) 0.5 k/uL (0-1.0); Monocytes % (A) 5 %; Neutrophils # (A) 7.7 k/uL (1.3-7.7); Neutrophils % (A) 79 %; Platelet Count 145 k/uL (150-450); RBC 4.24 m/uL (3.80-5.40); RDW 14.2 % (11.5-15.5); WBC 9.8 k/uL (3.8-10.6)
[2024-07-04 15:15] LABS: ALT 16 U/L (4-34); AST 19 U/L (14-36); African American GFR (CKD) >90 (>60 ml/min/1.73 sqM); Albumin 4.2 g/dL (3.5-5.0); Alkaline Phosphatase 75 U/L (38-126); Anion Gap 5 mmol/L; Blood Urea Nitrogen 12 mg/dL (7-17); Calcium 8.7 mg/dL (8.4-10.2); Carbon Dioxide 28 mmol/L (22-30); Chloride 104 mmol/L (98-107); Glucose 126 mg/dL (74-99); Lipase 66 U/L (23-300); Non-African American GFR(CKD) 89 (>60 ml/min/1.73 sqM); Potassium 4.7 mmol/L (3.5-5.1); Sodium 137 mmol/L (137-145); Total Bilirubin 0.5 mg/dL (0.2-1.3); Total Protein 6.7 g/dL (6.3-8.2)
--- NOTE | 2024-07-04 15:24 | XR ---
2 view chest HISTORY: Chest pain. COMPARISON: 08/06/2023 TECHNIQUE: PA and lateral views chest obtained. FINDINGS: The exam is limited by poor inspiratory effort. There is focal interstitial density in the left lower lobe which is stable and possibly represents ch ronic interstitial change or atelectasis. There appears to be cephalization of pulmonary vasculature indicating mild pulmonary vascular congestion. The heart size is normal. There is no pneumothorax or pleural effusion. There are healed right rib fractures as well as the osseous structures are intact IMPRESSION: Exam is limited by the portable AP technique. There is probable left lower lobe atelectasis or inters titial scarring in pulmonary vascular congestion. Correlate for CHF.. [facility], Workstation: [id number] 07/04/2024 3:22 PM
[2024-07-04 15:29] LABS: INR 0.9 (<1.2); Partial Thromboplastin Time 22.1 sec (22.0-30.0)
[2024-07-04] MEDS: HYDROmorphone 0.5 MG/0.5 ML SYRINGE IVP STA (15:29)
[2024-07-04] MEDS: methylPREDNISolone SOD SUCCI 125 MG/2 ML VIAL IV STA (15:31)
[2024-07-04] MEDS: FAMOTIDINE 20 MG/2 ML VIAL IV STA (15:31)
[2024-07-04] MEDS: diphenhydrAMINE 50 MG/ML 1 ML VIAL IVP STA (15:31)
--- NOTE | 2024-07-04 15:58 | ED ---
General Adult HPI - General Source: patient, EMS, RN notes reviewed, old records reviewed Mode of arrival: EMS Limitations: no limitations <Sumeet Joy - Last Filed: 07/04/24 15:53> <July Delgado - Last Filed: 07/05/24 00:56> - General Chief complaint: Chest Pain Stated complaint: Chest pain Time Seen by Provider: 07/04/24 14:15 - History of Present Illness Initial comments: 69-year-old female presenting for evaluation of chest pain. Pain has been present for the past several days. Patient states that the pain is in her lower chest and upper abdomen and she has a sharp pain radiating to her back. She has associated nausea. She states the pain does come and go and is predominantly sharp in nature. (Sumeet Joy) - Related Data Home Medications Medication Instructions Recorded Confirmed Albuterol Nebulized [Ventolin 2.5 mg INHALATION RT-Q6H PRN 06/28/20 07/04/24 Nebulized] Alendronate Sodium [Fosamax] 70 mg PO JONES@0806/28/20 07/04/24 Mirtazapine [Remeron] 15 mg PO HS@199906/28/20 07/04/24 Montelukast [Singulair] 10 mg PO HS@199906/28/20 07/04/24 Topiramate [Topamax] 100 mg PO BID@06/28/20 07/04/24 rOPINIRole HCL [Requip] 2 mg PO DAILY@1600 06/28/20 07/04/24 EPINEPHrine (Auto Inject) [Epipen] 0.3 mg IM ONCE PRN 08/14/21 07/04/24 Ferrous Sulfate [Iron (65 MG 325 mg PO DAILY@0800 08/14/21 07/04/24 Elemental)] Atorvastatin [Lipitor] 20 mg PO HS 10/08/21 07/04/24 Baclofen 10 mg PO BID@10/08/21 07/04/24 Primidone [Mysoline] 50 mg PO TID@00,08,16 10/08/21 07/04/24 Fluticasone/Umeclidin/Vilanter 1 puff INHALATION RT-DAILY@0800 06/23/22 07/04/24 [Trelegy Ellipta 200-62.5-25] Gabapentin [Neurontin] 100 mg PO TID@00,08,16 06/23/22 07/04/24 Levothyroxine Sodium [Synthroid] 175 mcg PO DAILY@0806/23/22 07/04/24 Sulfamethox-Tmp 800-160Mg [Bactrim 1 tab PO MOWEFR@0806/23/22 07/04/24 DS 800-160 mg] predniSONE 5 mg PO DAILY@00 06/23/22 07/04/24 Acetaminophen Tab [Tylenol] 650 mg PO Q8H PRN 07/04/24 07/04/24 Benzocaine/Menthol [Chloraseptic 2 lozenge MUCOUS MEM Q4H PRN 07/04/24 07/04/24 Sore Throat Lozng] Benzonatate [Tessalon Perle] 200 mg PO TID PRN 07/04/24 07/04/24 Butalb/Acetaminophen/Caffeine 1 cap PO DAILY@00 07/04/24 07/04/24 [Fioricet 50-300-40 mg Capsule] Cholecalciferol [Vitamin D3 (25 50 mcg PO DAILY@79907/04/24 07/04/24 Mcg = 1000 Iu)] Cyanocobalamin (Vitamin B-12) 1,000 mcg PO DAILY@79907/04/24 07/04/24 [Vitamin B-12] Dextran/Hypromellose/Glycerin 1 drop BOTH EYES QID@08,12,16,20 07/04/24 07/04/24 [Artificial Tears 0.1-0.2-0.3%] Docusate [Colace] 100 mg PO Q12H PRN 07/04/24 07/04/24 Loperamide [Imodium] 2 - 4 mg PO TID PRN MDD 16 MG 07/04/24 07/04/24 Naloxone HCl [Narcan] 4 mg NASAL ONCE PRN 07/04/24 07/04/24 Nilotinib HCl [Tasigna] 300 mg PO BID@06,18 07/04/24 07/04/24 Sennosides [Senokot] 8.6 mg PO DAILY@0800 07/04/24 07/04/24 clindamycin HCL [Cleocin] 300 mg PO Q6HR 07/04/24 07/04/24 guaiFENesin SYRUP 100MG/5ML 200 mg PO Q4H PRN 07/04/24 07/04/24 [Robitussin] oxyCODONE HCL [OxyIR] 5 mg PO QID@00,06,12,18 07/04/24 07/04/24 Previous Rx's Medication Instructions Recorded diphenhydrAMINE [Benadryl] 25 mg PO TID PRN #21 capsule 04/02/24 Allergies Allergy/AdvReac Type Severity Reaction Status Date / Time adhesive tape Allergy Rash/Hives Verified 07/04/24 15:08 aspirin Allergy Rash/Hives Verified 07/04/24 15:08 bee pollen Allergy Anaphylaxis Verified 07/04/24 15:08 bee venom protein (honey bee) Allergy Anaphylaxis Verified 07/04/24 15:08 cefdinir [From Omnicef] Allergy Anaphylaxis Verified 07/04/24 15:08 clarithromycin [From Biaxin] Allergy Anaphylaxis Verified 07/04/24 15:08 ibuprofen [From Advil] Allergy Anaphylaxis Verified 07/04/24 15:08 Iodinated Contrast Media Allergy Anaphylaxis Verified 07/04/24 15:08 [Iodinated Contrast Media - IV Dye] iodine Allergy Anaphylaxis Verified 07/04/24 15:08 omalizumab [From Xolair] Allergy Anaphylaxis Verified 07/04/24 15:08 Penicillins Allergy Dyspnea Verified 07/04/24 15:08 prochlorperazine edisylate Allergy Rash/Hives Verified 07/04/24 15:08 [From Compazine] prochlorperazine maleate Allergy Rash/Hives Verified 07/04/24 15:08 [From Compazine] shellfish derived Allergy Anaphylaxis Verified 07/04/24 15:08 Review of Systems ROS Other: All systems not noted in ROS Statement are negative. <Sumeet Joy - Last Filed: 07/04/24 15:53> ROS Other: All systems not noted in ROS Statement are negative. <July Delgado - Last Filed: 07/05/24 00:56> ROS Statement: Those systems with pertinent positive or pertinent negative responses have been documented in the HPI. Past Medical History Past Medical History: Asthma, COPD, Hyperlipidemia, Pneumonia, Respiratory Disorder, Sleep Apnea/CPAP/BIPAP, Thyroid Disorder Additional Past Medical History / Comment(s): hx migraines, "diaphragm issues", " respiratory issues" with home oxygen at 4L/NC continuous, JAREN but does not tolerate device, anemia, chronic low back pain, DDD, osteoporosis, hx fractured vertabra x2, chronic pain syndrome, RLS, essential tremors,, urine incontinence- uses depends, leukocytosis. History of Any Multi-Drug Resistant Organisms: None Reported Past Surgical History: Adenoidectomy, Appendectomy, Back Surgery, Breast Surgery, Cholecystectomy, Hysterectomy, Joint Replacement, Tonsillectomy Additional Past Surgical History / Comment(s): R breast bx, bilateral breast reduction/precancer, back fusion with hardware, kyphoplasty 07/2021 , L knee arthroscopy/ACL repair, total L knee arthroplasty, epidural back injections, colonoscopy, hemorrhoidectomy. right chest I&D of hematoma. I&D rt thigh, "tubes in ears to drain fluid" Past Anesthesia/Blood Transfusion Reactions: Family History of Problems w/ A nesthesia Additional Past Anesthesia/Blood Transfusion Reaction / Comment(s): "brother was awake during whole surgery" Past Psychological History: Depression Smoking Status: Never smoker, Second hand smoke exposure Past Alcohol Use History: None Reported Past Drug Use History: None Reported - Past Family History Mother Family Medical History: Cancer Father Family Medical History: Cancer Additional Family Medical History / Comment(s): Lung cancer <Sumeet Joy N - Last Filed: 07/04/24 15:53> General Exam Limitations: no limitations General appearance: alert, in no apparent distress Head exam: Present: atraumatic, normocephalic Eye exam: Present: normal appearance, PERRL ENT exam: Present: normal exam Respiratory exam: Present: normal lung sounds bilaterally. Absent: respiratory distress, wheezes Cardiovascular Exam: Present: regular rate, normal rhythm GI/Abdominal exam: Present: soft. Absent: distended, tenderness, guarding Extremities exam: Present: normal inspection, normal capillary refill Neurological exam: Present: alert, oriented X3 Psychiatric exam: Present: normal affect, normal mood Skin exam: Present: warm, dry, intact <Sumeet Joy N - Last Filed: 07/04/24 15:53> Course <Sumeet Joy - Last Filed: 07/04/24 15:53> Vital Signs 07/04/24 07/04/24 07/04/24 13:57 14:00 17:00 Temperature 98.9 F Pulse Rate 76 74 72 Respiratory 18 16 16 Rate Blood Pressure 142/88 143/119 126/77 O2 Sat by Pulse 97 96 97 Oximetry 07/04/24 19:08 Temperature Pulse Rate 86 Respiratory 18 Rate Blood Pressure 140/82 O2 Sat by Pulse 96 Oximetry - Reevaluation(s) Reevaluation #1: 07/04/24 15:55 I did confirm that the patient can receive iodine contrast if given premedication. (Sumeet Joy) Medical Decision Making - Lab Data Result diagrams: 07/04/24 14:50 07/04/24 14:50 <Sumeet Joy - Last Filed: 07/04/24 15:53> - Lab Data Result diagrams: 07/04/24 14:50 07/04/24 14:50 <July Delgado - Last Filed: 07/05/24 00:56> - Medical Decision Making Was pt. sent in by a medical professional or institution (Dr. PA, PATIENT MANAGER, urgent care, hospital, or alf...) When possible be specific @ -No Did you speak to anyone other than the patient for history (EMS, parent, family, police, friend...)? What history was obtained from this source @ -No Did you review nursing and triage notes (agree or disagree)? Why? @ -I reviewed and agree with nursing and triage notes Were old charts reviewed (outside hosp., previous admission, EMS record, old EKG, old radiological studies, urgent care reports/EKG's, alf records)? Report findings @ -No old charts were reviewed Differential Chest Pain: Stable Angina, Unstable Angina, STEMI, NSTEMI Aortic Dissection, Pneumothorax, Musculoskeletal, Esophageal Spasm GERD, Cholecystitis, Pancreatitis, Zoster, this is not meant to be an all-inclusive list. EKG interpreted by me (3pts min.). @EKG: Sinus rhythm with ventricular rate of 76, VA interval 165, QRS duration 90, QTc [address] segment elevation. X-rays interpreted by me (1pt min.). @ -Chest x-ray concerning for CHF CT interpreted by me (1pt min.). @ -None done U/S interpreted by me (1pt. min.). @ -None done What testing was considered but not performed or refused? (CT, X-rays, U/S, labs)? Why? @ -None What meds were considered but not given or refused? Why? @ -None Did you discuss the management of the patient with other professionals (professionals i.e. , PA, PATIENT MANAGER, lab, RT, psych nurse, social work administrator, billing clerk, teacher, public relations officer, wrapper caser)? Give summary @ -No Was smoking cessation discussed for >3mins.? @ -No Was critical care preformed (if so, how long)? @ -No Were there social determinants of health that impacted care today? How? (Bárbara elessness, low income, unemployed, alcoholism, drug addiction, transportation, low edu. Level, literacy, decrease access to med. care, intermediate, rehab)? @ -No Was there de-escalation of care discussed even if they declined (Discuss DNR or withdrawal of care, Hospice)? DNR status @ -No What co-morbidities impacted this encounter? (DM, HTN, Smoking, COPD, CAD, Cancer, CVA, ARF, Chemo, Hep., AIDS, mental health diagnosis, sleep apnea, morbid obesity)? @ -None Was patient admitted / discharged? Hospital course, mention meds given and route, prescriptions, significant lab abnormalities, going to OR and other pertinent info. @ -Patient care signed out to Dr. Delgado at shift change awaiting imaging and reevaluation. Undiagnosed new problem with uncertain prognosis? @ -No Drug Therapy requiring intensive monitoring for toxicity (Heparin, Nitro, Insulin, Cardizem)? @ -No Were any procedures done? @ -No Diagnosis/symptom? @ -Preliminary diagnosis: Chest pain, CHF Acute, or Chronic, or Acute on Chronic? @ -Acute (Sumeet Joy) Discharged AMA- Patient signed out to myself pending completion of CTA. CT negative for PE, aneurysm or dissection. Did note questionable small consolidation in LL base. Reassessed patient, she continues to endorse 7 out of 10 chest pain. I discussed with her plan for additional pain control with IV morphine and admission for observation due to concerning nature of her CP. Patient states that she is unsure if she wants to be admitted since she does not have her leukemia meds with her. I checked with angiography technologist who states we do not have patient's leukemia medication and a pharmacy. I asked the patient if she could call somebody to go and get her medication for her however she states that she does not want her daughter who lives locally called and has no one else that can go get her medications for her. I discussed with her that due to her history and the nature of her chest pain I am very concerned that it could be secondary to cardiac etiology and if she leaves the emergency department now she could h ave a heart attack and/or . Despite extensive discussion regarding her risk factors and my concerns for the emergent nature of her pain she requests to leave AGAINST MEDICAL ADVICE. When asked if there is anything else I can do for the patient, she politely declines. She is AO x4 and of sound mind. I did discuss with her that should she change her mind upon return to her home she should call 911 and return immediately. Otherwise she should at least call her vamp wetter, Dr. Henson in the morning for follow-up appointment. Undiagnosed new problem with uncertain prognosis? @ -Yes Drug Therapy requiring intensive monitoring for toxicity (Heparin, Nitro, Insulin, Cardizem)? @ -No Were any procedures done? @ -No Diagnosis/symptom? @ Chest pain Acute, or Chronic, or Acute on Chronic? @ acute Uncomplicated (without systemic symptoms) or Complicated (systemic symptoms)? complicated Side effects of treatment? @ -No Exacerbation, Progression, or Severe Exacerbation? @ -No Poses a threat to life or bodily function? How? (Chest pain, [place], [place], pneumonia, PE, COPD, DKA, ARF, appy, cholecystitis, CVA, Diverticulitis, Homicidal, Suicidal, threat to staff... and all critical care pts) @ Yes (July Delgado) - Lab Data Lab Results 07/04/24 07/04/24 07/04/24 Range/Units 14:50 14:50 14:50 WBC 9.8 (3.8-10.6) k/uL RBC 4.24 (3.80-5.40) m/uL Hgb 13.1 (11.4-16.0) gm/dL Hct 41.1 (34.0-46.0) % MCV 96.8 (80.0-100.0) fL MCH 30.9 (25.0-35.0) pg MCHC 31.9 (31.0-37.0) g/dL RDW 14.2 (11.5-15.5) % Plt Count 145 L (150-450) k/uL MPV 8.0 Neutrophils % 79 % Lymphocytes % 14 % Monocytes % 5 % Eosinophils % 1 % Basophils % 0 % Neutrophils # 7.7 (1.3-7.7) k/uL Lymphocytes # 1.4 (1.0-4.8) k/uL Monocytes # 0.5 (0-1.0) k/uL Eosinophils # 0.1 (0-0.7) k/uL Basophils # 0.0 (0-0.2) k/uL PT 10.0 (10.0-12.5) sec INR 0.9 (<1.2) APTT 22.1 (22.0-30.0) sec Sodium 137 (137-145) mmol/L Potassium 4.7 (3.5-5.1) mmol/L Chloride 104 (98-107) mmol/L Carbon Dioxide 28 (22-30) mmol/L Anion Gap 5 mmol/L BUN 12 (7-17) mg/dL Creatinine 0.70 (0.52-1.04) mg/dL Est GFR (CKD-EPI)AfAm >90 (>60 ml/min/1.73 sqM) Est GFR (CKD-EPI)NonAf 89 (>60 ml/min/1.73 sqM) Glucose 126 H (74-99) mg/dL Calcium 8.7 (8.4-10.2) mg/dL Magnesium 2.0 (1.6-2.3) mg/dL Total Bilirubin 0.5 (0.2-1.3) mg/dL AST 19 (14-36) U/L ALT 16 (4-34) U/L Alkaline Phosphatase 75 (38-126) U/L Troponin I (0.000-0.034) ng/mL Total Protein 6.7 (6.3-8.2) g/dL Albumin 4.2 (3.5-5.0) g/dL Lipase 66 (23-300) U/L 07/04/24 Range/Units 14:50 WBC (3.8-10.6) k/uL RBC (3.80-5.40) m/uL Hgb (11.4-16.0) gm/dL Hct (34.0-46.0) % MCV (80.0-100.0) fL MCH (25.0-35.0) pg MCHC (31.0-37.0) g/dL RDW (11.5-15.5) % Plt Count (150-450) k/uL MPV Neutrophils % % Lymphocytes % % Monocytes % % Eosinophils % % Basophils % % Neutrophils # (1.3-7.7) k/uL Lymphocytes # (1.0-4.8) k/uL Monocytes # (0-1.0) k/uL Eosinophils # (0-0.7) k/uL Basophils # (0-0.2) k/uL PT (10.0-12.5) sec INR (<1.2) APTT (22.0-30.0) sec Sodium (137-145) mmol/L Potassium (3.5-5.1) mmol/L Chloride (98-107) mmol/L Carbon Dioxide (22-30) mmol/L Anion Gap mmol/L BUN (7-17) mg/dL Creatinine (0.52-1.04) mg/dL Est GFR (CKD-EPI)AfAm (>60 ml/min/1.73 sqM) Est GFR (CKD-EPI)NonAf (>60 ml/min/1.73 sqM) Glucose (74-99) mg/dL Calcium (8.4-10.2) mg/dL Magnesium (1.6-2.3) mg/dL Total Bilirubin (0.2-1.3) mg/dL AST (14-36) U/L ALT (4-34) U/L Alkaline Phosphatase (38-126) U/L Troponin I <0.012 (0.000-0.034) ng/mL Total Protein (6.3-8.2) g/dL Albumin (3.5-5.0) g/dL Lipase (23-300) U/L Disposition <Sumeet Joy - Last Filed: 07/04/24 15:53> <July Delgado - Last Filed: 07/05/24 00:56> Clinical Impression: Chest pain Disposition: LEFT AGAINST MEDICAL ADVICE Referrals: Bigg Palacios MD [Primary Care Provider] - 1-2 days
--- NOTE | 2024-07-04 16:32 | CT ---
CTA chest, abdomen and pelvis HISTORY: Chest pain and back pain COMPARISON: None TECHNIQUE: Multiple axial images are obtained through chest, abdomen and pelvis according to the [facility] CTPA protocol. Pre- and post-IV contrast images were obtained.. Coronal and sagittal reconstru ctions as well as three-dimensional images of the aorta were generated and reviewed. FINDINGS: CTA CHEST: The thoracic aorta is 3.9 cm and is upper limits of normal. There is no thoracic aortic dissection. There are no filling defects within the pulmonary arterial system to suggest pulmonary embolus. There is no airspace consolidation. There is a small focal partially consolidated left lower lobe possibly indicating acute pneumonia. Th ere is crowding of the pulmonary vasculature and the lung bases consistent with bibasilar atelectasis . There is no mediastinal, hilar or axillary adenopathy. The osseous structures are intact. CTA abdomen and pelvis: The caliber of the abdominal aorta is normal and there is no dissection. The origins of the mesenteri c arteries and renal arteries are widely patent. There is surgical absence of gallbladder. There is no focal mass or organomegaly involving the liver, pancreas, spleen or adrenal glands. There is no solid renal mass or stenosis. There are anastomotic sutures in the hepatic flexure. There is no bowel obstruction or inflammation. There is no free peritoneal air or fluid. There is no pelvic mass or adenopathy. There is vertebroplasty cement within T12 where there is a [id number] compression fracture. The re is posterior metallic fusion of L2-S1. There is abnormal density within the L4 vertebral segment a nd there is a moderate to marked compression fracture. Comparison to CT abdomen and pelvis at 09/08/19 23 reveals no significant interval change. IMPRESSION: 1. No aneurysm or dissection of the thoracic or abdominal aorta. 2. Questionable small focal pneumonia in the left lung base. 3. Extensive postsurgical changes in the lower thoracic and lumbar spine as described above. There is been no interval change compared to the CT abdomen and pelvis 09/08/2022 [facility], , 07/04/2024 4:29 PM
[2024-07-04] MEDS: FUROSEMIDE 10 MG/ML 4 ML VIAL IV STA (16:42)
[2024-07-04] MEDS: ONDANSETRON 4 MG/2 ML VIAL IVP STA (18:07)
[2024-07-04] MEDS: MORPHINE SULFATE 4 MG/ML SYRINGE IVP STA (18:07)
[2024-07-04 19:11] VITALS: BP 140/82; PULSE 86; RESP 18
== END 2024-07-04 19:11 | disposition left against medical advice (07) ==
LOC: EC 13:54
DX: R07.89 Other chest pain (principal); Z88.6 Allergy status to analgesic agent; Z91.09 Other allergy status, other than to drugs and biological substances; Z91.041 Radiographic dye allergy status; Z91.030 Bee allergy status; Z88.8 Allergy status to other drugs, medicaments and biological substances; Z88.1 Allergy status to other antibiotic agents
CPT/HCPCS: 36415; 93005; 80053; 83690; 83735; 84484; 85025; 85610; 85730; 71046; 71275; 74174; 99285; 96374; 96375; J2270; J1200; J1940; J2405; J3490; J1171; Q9967; J2919

== ENCOUNTER 2025-02-14 12:19 | Emergency (ER) | payer MEDICARE ==
[2025-02-14 12:28] VITALS: RESP 18; TEMP 98.2
[2025-02-14] MEDS: MAGNESIUM SULFATE-D5W PMX 1 GM in DEXTROSE/WATER 1 100ML.BAG IVPB ONE (13:00)
[2025-02-14] MEDS: methylPREDNISolone SOD SUCCI 125 MG/2 ML VIAL IV STA (13:02)
[2025-02-14] MEDS: SODIUM CHLORIDE 0.9% 1,000 ML IV ONE (13:05)
[2025-02-14 13:29] LABS: Basophils # (A) 0.03 10*3/uL (0.00-0.10); Basophils % (A) 0.3 %; Eosinophils # (A) 0.00 10*3/uL (0.04-0.35); Eosinophils % (A) 0.0 %; HCT 41.1 % (37.2-46.3); HGB 13.5 g/dL (12.0-15.0); Immature Platelet Fraction 2.4 % (1.1-6.1); Lymphocytes # (A) 1.04 10*3/uL (0.90-5.00); Lymphocytes % (A) 11.6 %; MCH 31.8 pg (27.0-32.0); MCHC 32.8 g/dL (32.0-37.0); MCV 96.7 fL (80.0-97.0); Monocytes # (A) 0.44 10*3/uL (0.20-1.00); Monocytes % (A) 4.9 %; Neutrophils # (A) 7.34 10*3/uL (1.80-7.70); Neutrophils % (A) 82.0 %; Platelet Count 138 10*3/uL (140-440); RBC 4.25 10*6/uL (4.10-5.20); RDW 14.3 % (11.5-14.5); WBC 8.96 10*3/uL (4.50-10.00)
[2025-02-14 13:30] LABS: ALT 10 U/L (4-34); African American GFR (CKD) >90 (>60 ml/min/1.73 sqM); Albumin 4.2 g/dL (3.5-5.0); Anion Gap 6 mmol/L; Blood Urea Nitrogen 10 mg/dL (7-17); Calcium 9.0 mg/dL (8.4-10.2); Carbon Dioxide 31 mmol/L (22-30); Chloride 101 mmol/L (98-107); Glucose 149 mg/dL (74-99); Non-African American GFR(CKD) 90 (>60 ml/min/1.73 sqM); Sodium 138 mmol/L (137-145); Total Protein 6.5 g/dL (6.3-8.2)
--- NOTE | 2025-02-14 13:32 | ED ---
General Adult HPI - General Chief complaint: Upper Respiratory Infection Stated complaint: KYE Time Seen by Provider: 02/14/25 12:21 Source: patient, EMS, RN notes reviewed, old records reviewed Mode of arrival: EMS - History of Present Illness Initial comments: 69-year-old female presents Emergency Department complaining of URI symptoms. States for the last 2 weeks she has been having worsening cough, congestion. Cough is nonproductive. Has been on steroids as well as a Dosepak and inhalers at home without much improvement. Denies any fevers or chills. Denies any andrea chest pain but states she has pain with coughing from coughing so much. Denies any nausea or vomiting or abdominal pain. Presents for further evaluation at this time. Does have a history of asthma/COPD, hyperlipidemia, as well as sleep apnea. No significant cardiac disease. Denies any lower extremity swelling. Does have a recent history of a fractured left foot/ankle numerous weeks to months ago. Currently is in a boot. - Related Data Home Medications Medication Instructions Recorded Confirmed Alendronate Sodium [Fosamax] 70 mg PO JONES@0800 06/28/20 02/14/25 Mirtazapine [Remeron] 15 mg PO HS@199906/28/20 02/14/25 Montelukast [Singulair] 10 mg PO HS@199906/28/20 02/14/25 Topiramate [Topamax] 100 mg PO BID@0800,199906/28/20 02/14/25 EPINEPHrine (Auto Inject) [Epipen] 0.3 mg IM ONCE PRN 08/14/21 02/14/25 Ferrous Sulfate [Iron (65 MG 325 mg PO DAILY@0800 08/14/21 02/14/25 Elemental)] Atorvastatin [Lipitor] 20 mg PO HS 10/08/21 02/14/25 Baclofen 10 mg PO BID@0800,199910/08/21 02/14/25 Primidone [Mysoline] 50 mg PO TID@0000,0800,1600 10/08/21 02/14/25 Fluticasone/Umeclidin/Vilanter 1 puff INHALATION RT-DAILY@0800 06/23/22 02/14/25 [Trelegy Ellipta 200-62.5-25] Gabapentin [Neurontin] 100 mg PO TID@0000,0800,1600 06/23/22 02/14/25 Sulfamethox-Tmp 800-160Mg [Bactrim 1 tab PO MOWEFR@0800 06/23/22 02/14/25 DS 800-160 mg] predniSONE 5 mg PO DAILY@0800 06/23/22 02/14/25 Benzonatate [Tessalon Perle] 200 mg PO TID PRN 07/04/24 02/14/25 Butalb/Acetaminophen/Caffeine 1 cap PO DAILY@0800 07/04/24 02/14/25 [Fioricet 50-300-40 mg Capsule] Cyanocobalamin (Vitamin B-12) 1,000 mcg PO DAILY@0800 07/04/24 02/14/25 [Vitamin B-12] Docusate [Colace] 100 mg PO Q12H PRN 07/04/24 02/14/25 Naloxone HCl [Narcan] 4 mg NASAL ONCE PRN 07/04/24 02/14/25 Nilotinib HCl [Tasigna] 300 mg PO BID@0600,1800 07/04/24 02/14/25 Sennosides [Senokot] 8.6 mg PO DAILY@0800 07/04/24 02/14/25 oxyCODONE HCL [OxyIR] 5 mg PO QID@00,06,12,18 07/04/24 02/14/25 Albuterol Sulfate [Albuterol 2 puff INHALATION RT-Q4H PRN 02/14/25 02/14/25 Sulfate Hfa] Carbidopa-Levodopa ER 25-100Mg 1 tab PO TID@0600,1200,199902/14/25 02/14/25 [Sinemet CR 25-100 mg] Cholecalciferol (Vitamin D3) 50 mcg PO DAILY@0800 02/14/25 02/14/25 [Vitamin D3 (50 Mcg = 2000 Iu)] Ft 12 Hour Cough Relief 30mg/5ml 10 ml PO Q12H PRN 02/14/25 02/14/25 Suer Levothyroxine Sodium [Synthroid] 150 mcg PO DAILY@0800 02/14/25 02/14/25 Max Tussin Dm Cough&Chest Yasir 10 - 20 ml PO Q4H PRN 02/14/25 02/14/25 20-200mg/20ml Liqd Tinactin 1% [place] 1 spray TOPICAL DAILY@0800 02/14/25 02/14/25 rOPINIRole HCL [Requip] 2 mg PO DAILY@1600 02/14/25 02/14/25 Previous Rx's Medication Instructions Recorded diphenhydrAMINE [Benadryl] 25 mg PO TID PRN #21 capsule 04/02/24 Albuterol Inhaler [Ventolin Hfa 1 - 2 puff INHALATION Q6H PRN #1 02/14/25 Inhaler] each Levofloxacin [Levaquin] 750 mg PO DAILY 7 Days #7 tab 02/14/25 predniSONE [Deltasone] 40 mg PO DAILY 5 Days #10 tab 02/14/25 Allergies Allergy/AdvReac Type Severity Reaction Status Date / Time adhesive tape Allergy Rash/Hives Verified 02/14/25 13:57 aspirin Allergy Rash/Hives Verified 02/14/25 13:57 bee pollen Allergy Anaphylaxis Verified 02/14/25 13:57 bee venom protein (honey bee) Allergy Anaphylaxis Verified 02/14/25 13:57 cefdinir [From Omnicef] Allergy Anaphylaxis Verified 02/14/25 13:57 clarithromycin [From Biaxin] Allergy Anaphylaxis Verified 02/14/25 13:57 fluconazole Allergy Unknown Verified 02/14/25 13:57 ibuprofen [From Advil] Allergy Anaphylaxis Verified 02/14/25 13:57 Iodinated Contrast Media Allergy Anaphylaxis Verified 02/14/25 13:57 [Iodinated Contrast Media - IV Dye] iodine Allergy Anaphylaxis Verified 02/14/25 13:57 omalizumab [From Xolair] Allergy Anaphylaxis Verified 02/14/25 13:57 Penicillins Allergy Dyspnea Verified 02/14/25 13:57 prochlorperazine edisylate Allergy Rash/Hives Verified 02/14/25 13:57 [From Compazine] prochlorperazine maleate Allergy Rash/Hives Verified 02/14/25 13:57 [From Compazine] shellfish derived Allergy Anaphylaxis Verified 02/14/25 13:57 Review of Systems ROS Statement: Those systems with pertinent positive or pertinent negative responses have been documented in the HPI. Review of Systems: CONST: Denies fever EYES: Denies blurry vision ENT: Denies nasal congestion C/V: Denies Chest pain RESP: Endorses cough, congestion GI: Denies abdominal pain : Denies dysuria SKIN: Denies rash. MSK: Denies joint pain. NEURO: Denies headache ROS Other: All systems not noted in ROS Statement are negative. Past Medical History Past Medical History: Asthma, COPD, Hyperlipidemia, Pneumonia, Respiratory Disorder, Sleep Apnea/CPAP/BIPAP, Thyroid Disorder Additional Past Medical History / Comment(s): hx migraines, "diaphragm issues", " respiratory issues" with home oxygen at 4L/NC continuous, JAREN but does not tolerate device, anemia, chronic low back pain, DDD, osteoporosis, hx fractured vertabra x2, chronic pain syndrome, RLS, essential tremors,, urine incontinence- uses depends, leukocytosis. History of Any Multi-Drug Resistant Organisms: None Reported Past Surgical History: Adenoidectomy, Appendectomy, Back Surgery, Breast Surger y, Cholecystectomy, Hysterectomy, Joint Replacement, Tonsillectomy Additional Past Surgical History / Comment(s): R breast bx, bilateral breast reduction/precancer, back fusion with hardware, kyphoplasty 07/2021 , L knee arthroscopy/ACL repair, total L knee arthroplasty, epidural back injections, colonoscopy, hemorrhoidectomy. right chest I&D of hematoma. I&D rt thigh, "tu bes in ears to drain fluid" Past Anesthesia/Blood Transfusion Reactions: Family History of Problems w/ Anesthesia Additional Past Anesthesia/Blood Transfusion Reaction / Comment(s): "brother was awake during whole surgery" Past Psychological History: Depression Smoking Status: Never smoker, Second hand smoke exposure Past Alcohol Use History: None Reported Past Drug Use History: None Reported - Past Family History Mother Family Medical History: Cancer Father Family Medical History: Cancer Additional Family Medical History / Comment(s): Lung cancer General Exam - General Exam Comments Initial Comments: General: Appears in no acute distress. HEAD: Normal with no signs of head trauma. EYES: PERRLA, EOMI, conjunctiva normal, no discharge. ENT: Hearing grossly intact, normal oropharynx. RESPIRATORY: Bilateral end expiratory wheezing. Normoxic on chronic 2 L nasal cannula oxygen. Is on up to 5 L nasal cannula at home. No significant increased work of breathing. Coughing. C/V: Regular rate and rhythm. S1 and S2 auscultated, no edema, peripheral pulses 2+ and intact throughout ABD: Abd is soft, nontender, nondistended EXT: No obvious deformity. Walking boot in place on the left foot SKIN: No rashes or lesions observed on exposed skin. NEURO: Alert and orient x 4. Course Vital Signs 02/14/25 02/14/25 02/14/25 12:21 14:04 14:06 Temperature 98.2 F Pulse Rate 72 66 65 Respiratory 18 18 Rate Blood Pressure 140/87 144/72 O2 Sat by Pulse 96 96 Oximetry 02/14/25 14:21 Temperature Pulse Rate 67 Respiratory Rate Blood Pressure O2 Sat by Pulse Oximetry Medical Decision Making - Medical Decision Making Was pt. sent in by a medical professional or institution (, PA, SAWMILL HAND, urgent care, hospital, or residential...) When possible be specific @ -No Did you speak to anyone other than the patient for history (EMS, parent, family, police, friend...)? What history was obtained from this source @ -No Did you review nursing and triage notes (agree or disagree)? Why? @ -I reviewed and agree with nursing and triage notes Were old charts reviewed (outside hosp., previous admission, EMS record, old EKG, old radiological studies, urgent care reports/EKG's, residential records)? Report findings @ -Compared today's EKG with EKG from June 2024 with no significant acute change. Differential Diagnosis (chest pain, altered mental status, abdominal pain women, abdominal pain men, vaginal bleeding, weakness, fever, dyspnea, syncope, headache, dizziness, GI bleed, back pain, seizure, CVA, palpatations, mental health, musculoskeletal)? @ -COPD, pneumonia, viral syndrome. This this is not all-inclusive. EKG interpreted by me (3pts min.). @ -As above X-rays interpreted by me (1pt min.). @ -Chest x-ray shows possible patchy infiltrates versus atelectasis and poor inspiration. CT interpreted by me (1pt min.). @ -None done U/S interpreted by me (1pt. min.). @ -None done What testing was considered but not performed or refused? (CT, X-rays, U/S, labs)? Why? @ -None What meds were considered but not given or refused? Why? @ -None Did you discuss the management of the patient with other professionals (professionals i.e. , PA, SAWMILL HAND, lab, RT, psych nurse, social service technician, sharepoint engineer, teacher, customs and immigration officer, casework manager)? Give summary @ -No Was smoking cessation discussed for >3mins.? @ -No Was critical care preformed (if so, how long)? @ -No Were there social determinants of health that impacted care today? How? (Homelessness, low income, unemployed, alcoholism, drug addiction, transportation, low edu. Level, literacy, decrease access to med. care, skilled nursing, rehab)? @ -No Was there de-escalation of care discussed even if they declined (Discuss DNR or withdrawal of care, Hospice)? DNR status @ -No What co-morbidities impacted this encounter? (DM, HTN, Smoking, COPD, CAD, Cancer, CVA, ARF, Chemo, Hep., AIDS, mental health diagnosis, sleep apnea, morbid obesity)? @ -Chronic hypoxic respiratory failure from asthma/COPD Was patient admitted / discharged? Hospital course, mention meds given and route, prescriptions, significant lab abnormalities, going to OR and other pertinent info. @ -Presents emergency department complaining of cough, congestion in the setting of chronic hypoxic respiratory failure secondary to asthma/COPD. Has be en ongoing for numerous weeks with attempted treatment with steroids outpatient as well as breathing treatments outpatient. She has been coughing more. Presents for further evaluation. Vitals are within acceptable limits on her baseline oxygen. She is coughing and exam concerning for COPD exacerbation. She is given IV steroids, breathing treatment, IV magnesium as well as IV fluids. Will obtain screening EKG, chest x-ray, viral swabs and basic labs. Patient was in agreement this plan. EKG shows no signs of acute ischemia. Chest x-ray shows possible patchy infiltrates versus atelectasis and poor inspiration. Laboratory studies are within acceptable limits. On reevaluation, patient remains at baseline on baseline nasal cannula oxygen, no respiratory distress. Lungs sound improved. I discussed results with her. Diagnosis will be pneumonia as well as COPD exacerbation. I believe it is safe for her to be discharged home at this time his labs and everything else appear within acceptable limits. Vital signs are within acceptable limits. She was in agreement this plan. Strict return precautions were discussed. 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 I will provide the patient with a prescription for prednisone, Levaquin, albuterol inhaler. I instructed the patient to follow up with their PCP in the next 1-3 days.. I explained that the patient should return to the emergency department if they experience any worsening symptoms. Strict return precautions were discussed with the patient. The patient expressed understanding of these in structions. I answered all questions that the patient had. The patient was discharged home in good condition with their prescriptions and follow up information. Undiagnosed new problem with uncertain prognosis? @ -No Drug Therapy requiring intensive monitoring for toxicity (Heparin, Nitro, Insulin, Cardizem)? @ -No Were any procedures done? @ -No Diagnosis/symptom? @ -COPD exacerbation, pneumonia Acute, or Chronic, or Acute on Chronic? @ -Acute Uncomplicated (without systemic symptoms) or Complicated (systemic symptoms)? @ -Uncomplicated Side effects of treatment? @ -None Exacerbation, Progression, or Severe Exacerbation] @ -No Poses a threat to life or bodily function? @ -Unlikely at this time - Lab Data Result diagrams: 02/14/25 12:49 02/14/25 12:49 Lab Results 02/14/25 02/14/25 02/14/25 Range/Units 11:14 12:49 12:49 WBC 8.96 (4.50-10.00) 10*3/uL RBC 4.25 (4.10-5.20) 10*6/uL Hgb 13.5 (12.0-15.0) g/dL Hct 41.1 (37.2-46.3) % MCV 96.7 (80.0-97.0) fL MCH 31.8 (27.0-32.0) pg MCHC 32.8 (32.0-37.0) g/dL Plt Count 138 L (140-440) 10*3/uL MPV 10.4 (9.5-12.2) fL Immature Gran % (Auto) 1.2 % Neutrophils % 82.0 % Lymphocytes % 11.6 % Monocytes % 4.9 % Eosinophils % 0.0 % Basophils % 0.3 % Immature Gran # 0.11 H (0.00-0.04) 10*3/uL Neutrophils # 7.34 (1.80-7.70) 10*3/uL Lymphocytes # 1.04 (0.90-5.00) 10*3/uL Monocytes # 0.44 (0.20-1.00) 10*3/uL Eosinophils # 0.00 L (0.04-0.35) 10*3/uL Basophils # 0.03 (0.00-0.10) 10*3/uL Immature Plt Fraction 2.4 (1.1-6.1) % Sodium 138 (137-145) mmol/L Potassium 4.6 (3.5-5.1) mmol/L Chloride 101 (98-107) mmol/L Carbon Dioxide 31 H (22-30) mmol/L Anion Gap 6 mmol/L BUN 10 (7-17) mg/dL Creatinine 0.68 (0.52-1.04) mg/dL Est GFR (CKD-EPI)AfAm >90 (>60 ml/min/1.73 sqM) Est GFR (CKD-EPI)NonAf 90 (>60 ml/min/1.73 sqM) Glucose 149 H (74-99) mg/dL Calcium 9.0 (8.4-10.2) mg/dL Magnesium 1.8 (1.6-2.3) mg/dL Total Bilirubin 0.8 (0.2-1.3) mg/dL AST 26 (14-36) U/L ALT 10 (4-34) U/L Alkaline Phosphatase 83 (38-126) U/L Total Protein 6.5 (6.3-8.2) g/dL Albumin 4.2 (3.5-5.0) g/dL Influenza Type A (PCR) Not Detected (Not Detectd) Influenza Type B (PCR) Not Detected (Not Detectd) RSV (PCR) Not Detected (Not Detectd) SARS-CoV-2 (PCR) Not Detected (Not Detectd) - EKG Data -: EKG Interpreted by Me EKG Comments: 12-lead Electrocardiogram Interpretation Note EKG was reviewed and interpreted by myself. 12-lead ECG performed at 1253 is interpreted by me as revealing normal sinus rhythm at a rate of 76 beats per minute. [place] is normal. GA interval is 132 ms, QRS duration is 93 ms, QTc is 431 ms.. There were no ST or T wave abnormalities to suggest myocardial ischemi a or injury. R wave progression across the precordium was satisfactory. By my interpretation this EKG is non-diagnostic for acute ischemia. Disposition Clinical Impression: COPD (chronic obstructive pulmonary disease), Pneumonia Disposition: HOME SELF-CARE Condition: Good Instructions (If sedation given, give patient instructions): COPD (Chronic Obstructive Pulmonary Disease) (ED), Community Acquired Pneumonia (ED) Prescriptions: predniSONE [Deltasone] 40 mg PO DAILY 5 Days #10 tab Levofloxacin [Levaquin] 750 mg PO DAILY 7 Days #7 tab Albuterol Inhaler [Ventolin Hfa Inhaler] 1 - 2 puff INHALATION Q6H PRN #1 each PRN Reason: Dyspnea Is patient prescribed a controlled substance at d/c from ED?: No Referrals: Tab Tam MD [Primary Care Provider] - 1-2 days Time of Disposition: 15:10
[2025-02-14 13:41] LABS: AST 26 U/L (14-36); Alkaline Phosphatase 83 U/L (38-126); Magnesium 1.8 mg/dL (1.6-2.3); Potassium 4.6 mmol/L (3.5-5.1)
[2025-02-14 13:46] LABS: RSV Not Detected (Not Detectd)
[2025-02-14] MEDS: IPRATROPIUM-ALBUTEROL 3 ML NEB INHALATION STA (14:06)
--- NOTE | 2025-02-14 14:50 | XR ---
EXAMINATION TYPE: XR chest 2V DATE OF EXAM: 02/14/2025 1:43 PM COMPARISON: 07/04/2024 CLINICAL INDICATION: Female, 69 years old with history of cough, TECHNIQUE: AP and lateral views FINDINGS: Portable exam further limited by large patient body habitus and marked hypoventilatory changes. The h eart margins are obscured and heart size cannot be assessed. There are patchy bilateral interstitial opacities. Lateral view shows no sizable pleural effusion. IMPRESSION: Portable exam further limited by large body habitus and severe hypoventilatory changes. Unable to det ermine heart size. There are patchy bilateral lung opacities that could represent pulmonary vascular congestion, atypical pneumonias, interstitial pneumonitis, or multifocal pneumonia. Opacities relatin g to severe generalized atelectasis is also possible. [facility], , 02/14/2025 2:47 PM
[2025-02-14] MEDS: LEVOFLOXACIN 750 MG TAB PO STA (15:14)
[2025-02-14 16:10] VITALS: BP 140/76; PULSE 78
== END 2025-02-14 16:00 | disposition home or self-care (01) ==
LOC: EC 12:19
DX: J44.0 Chronic obstructive pulmonary disease with (acute) lower respiratory infection (principal); J18.9 Pneumonia, unspecified organism; Z77.22 Contact with and (suspected) exposure to environmental tobacco smoke (acute) (chronic); Z11.52 Encounter for screening for COVID-19; Z88.0 Allergy status to penicillin; Z88.1 Allergy status to other antibiotic agents; Z88.3 Allergy status to other anti-infective agents; Z88.6 Allergy status to analgesic agent; Z91.09 Other allergy status, other than to drugs and biological substances; Z91.013 Allergy to seafood; Z91.030 Bee allergy status; Z91.041 Radiographic dye allergy status; Z88.8 Allergy status to other drugs, medicaments and biological substances
CPT/HCPCS: 36415; 94640; 93005; 80053; 83735; 85025; 87636; 71046; 99285; 96365; 96375; J3475; J2919